=== PATIENT | female | born 1965 | race Caucasian/White ===

== ENCOUNTER 2017-01-15 09:04 | Emergency (ER) | payer MEDICARE, MEDICAID ==
[~2017-01-15 09:04] MED LIST: ACURKIT; ALBU1AER INH; ATRO17AE INH; AZIT250T43 PO; DILT60TA PO; HYDRA50 PO; INSU-118 SQ; NOVOLOGSS SQ; PRED10PA PO; PROT40TA PO; SYMB160A INH; TIOT18I INH
[2017-01-15 09:16] VITALS: BP 181/109; PULSE 135; RESP 24; TEMP 98.3; O2SAT 97
[2017-01-15] MEDS ORDERED: IPRASOL INH (09:24)
[2017-01-15] MEDS ORDERED: ALBUAER3 INH (09:24)
[2017-01-15] MEDS ORDERED: BP MED (09:24)
[2017-01-15] MEDS ORDERED: ADVA250A INH (09:24)
[2017-01-15] MEDS ORDERED: DILTIAZEM HCL 25 MG/5 ML VIAL IV ONE (09:30)
[2017-01-15] MEDS ORDERED: SODIUM CHLORIDE 0.9% FLUSH 5 ML FLUSH IVF PRN (09:30)
[2017-01-15] MEDS ORDERED: DILTIAZEM HCL 90 MG TAB PO ONE (09:30)
[2017-01-15 09:35] VITALS: BP 131/80; PULSE 128; RESP 20; TEMP 98.3; O2SAT 98
[2017-01-15 09:40] LABS: AUTOMATED NEUTROPHIL # 8.5 TH/MM3 (1.8-7.7); BASOPHIL # 0.4 TH/MM3 (0-0.2); BASOPHIL % 3.9 % (0.0-2.0); EOSINOPHIL # 0.1 TH/MM3 (0-0.4); HEMATOCRIT 51.4 % (35.0-46.0); LYMPH % 12.5 % (9.0-44.0); LYMPHOCYTE # 1.4 TH/MM3 (1.0-4.8); MEAN CORPUSCULAR HEMOGLOBIN 28.1 PG (27.0-34.0); MEAN CORPUSCULAR HGB CONC 32.3 % (32.0-36.0); MONO % 4.7 % (0.0-8.0); NEUT % 77.9 % (16.0-70.0); PLATELET COUNT 277 TH/MM3 (150-450); RED CELL DISTRIBUTION WIDTH 13.1 % (11.6-17.2); WHITE BLOOD COUNT 10.9 TH/MM3 (4.0-11.0)
[2017-01-15 09:41] LABS: HEMO FLAGS DIFF FINAL
--- NOTE | 2017-01-15 09:42 | RADHPO ---
EXAM DATE/TIME: 01/15/2017 09:26 [facility] COMPARISON: CHEST SINGLE AP, March 26, 2016, 3:21. INDICATIONS : Severe short of breath. MEDICAL HISTORY : Hypertension. Emphysema. Chronic obstructive pulmonary disease. Renal calculi. Diabetic. SURGICAL HISTORY : Tubal ligation. D&C. ENCOUNTER: Initial ACUITY: 1 day PAIN SCORE: 0/10 LOCATION: chest FINDINGS: A single view of the chest demonstrates the lungs to be symmetrically inflated without evidence of ma ss, infiltrate or effusion. Costicartilage calcifications are present. The cardiomediastinal contours are unremarkable. Osseous structures are intact. The overlying electrocardiogram leads and oxygen t ubing. CONCLUSION: The lungs remain hyperinflated with no evidence of pneumonia or pulmonary edema. Paul Green MD on January 15, 2017 at 9:40 Board Certified Radiologist. This report was verified electronically.
[2017-01-15 09:53] LABS: PROTHROMBIN TIME - PATIENT 10.7 SEC (9.8-11.6)
[2017-01-15 10:08] LABS: CHLORIDE 101 MEQ/L (98-107); POTASSIUM 3.7 MEQ/L (3.5-5.1); SODIUM (NA) 140 MEQ/L (136-145)
[2017-01-15 10:13] LABS: ANION GAP 7 MEQ/L (5-15); BICARBONATE 32.1 MEQ/L (21.0-32.0)
[2017-01-15 10:14] LABS: BLOOD UREA NITROGEN 7 MG/DL (7-18); MAGNESIUM 2.1 MG/DL (1.5-2.5)
[2017-01-15 10:17] LABS: GLOMERULAR FILTRATION RATE 70 ML/MIN (>89)
[2017-01-15 10:22] LABS: CREATINE KINASE 65 U/L (26-192)
[2017-01-15] MEDS ORDERED: SODIUM CHLOR 0.9% 1000 ML INJ 1,000 ML IV ONE (10:30)
[2017-01-15 10:35] VITALS: BP 148/51; PULSE 105; RESP 20; O2SAT 97
[2017-01-15] MEDS ORDERED: PRED20 PO (11:14)
[2017-01-15] MEDS ORDERED: CARD120C4 PO (11:14)
--- NOTE | 2017-01-15 11:15 | PD ---
HPI Chief Complaint: Respiratory Symptoms Time Seen by Provider: 09:20 Travel History International Travel<30 days: No Contact w/Intl Traveler<30days: No Traveled to known affect area: No History of Present Illness HPI 51-year-old female came to the emergency room brought by EMS with history of shortness of breath that started at 5 AM this morning. Patient has severe COPD and requires 2 L of oxygen all the time at home. She continues to be a smoker still. She has had multiple admissions, ICU admissions with intubations in the past. Her last admission with intubation was one year ago. She used to of her nebulizers but when she continued to feel poorly she asked her daughter to call 911. Patient says that she also felt like her heart was racing. No history of chest pain. As per EMS when they arrived they noticed that her oxygen saturation was 96% on room air and heart rate was in 140s. They captured a 12- lead EKG which showed a normal sinus rhythm with tachycardia. Patient received one albuterol on route by EMS along with IV Solu-Medrol. When she arrived her heart rate was in 130s and oxygen saturation was 98% on 2 L of oxygen. Patient seemed anxious. Denied of any chest pain. Patient says she was at her baseline last night before going to bed. No history of recent long distance travel, procedures or surgeries. Patient is supposed to be on Cardizem but has not taken it in past couple months. [facility] Past Medical History Narrative Medical List of her past medical history, social and family history is reviewed from the nursing note as well as with the patient. Anxiety: Yes (LAST ANXIETY ATTACK WAS IN 2000.) Depression: No Cancer: No High Cholesterol: No COPD: Yes Diabetes: No Diminished Hearing: No Endocrine: No Genitourinary: Yes Hypertension: Yes Immune Disorder: No Kidney Stones: Yes (AT AGE 15.) Musculoskeletal: No Neurologic: No Psychiatric: Yes Reproductive: No Respiratory: Yes Immunizations Current: No Influenza Vaccination: No ?: Not Menopausal: Yes : 9 Para: 4 Miscarriage: 5 Dilation and Curettage (D&C): Yes Tubal Ligation: Yes Past Surgical History Gynecologic Surgery: Yes (TUBES TIED.) Other Surgery: Yes (HAND SURGERY ) Social History Alcohol Use: Yes (RARELY) Tobacco Use: Yes (1/2 PPD) Substance Use: No Allergies-Medications (Allergen,Severity, Reaction): Coded Allergies: Valium (Verified Allergy, Severe, HIVES, 01/15/17) *MDRO Multi-Drug Resistant Organism (Verified Adverse Reaction, Unknown, ) MRSA PCR Screen POSITIVE - 03/19/2016 Comments List of her allergies reviewed from the nursing note. Reported Meds & Prescriptions Reported Meds & Active Scripts Active Prednisone 20 Mg Tab 20 Mg PO BID 5 Days Cardizem CD 24 HR (Diltiazem CD 24 HR) 120 Mg Caper 120 Mg PO DAILY Reported [Bp Med] 0 Advair Diskus Inh (Fluticasone-Salmeterol Inh) 250-50 Mcg/Blist Aer 1 Puff INH BID Rinse mouth after use. Duoneb (Ipratropium-Albuterol Neb) 0.5-2.5 Mg/3 Ml Neb 1 Nebule INH Q4HR NEB Proair Hfa 8.5 GM Inh (Albuterol Sulfate) 90 Mcg/Act Aer 2 Puff INH Q4-6H PRN 108 mcg/actuation Narrative Medication List of her home medications reviewed from the nursing note. Review of Systems Except as stated in HPI: all other systems reviewed are Neg Physical Exam Narrative GENERAL: Awake, alert, anxious, moderate distress SKIN: Warm and dry. Eczema HEAD: Atraumatic. Normocephalic. EYES: Pupils equal and round. No scleral icterus. No injection or drainage. ENT: No nasal bleeding or discharge. Mucous membranes pink and moist. NECK: Trachea midline. No JVD. CARDIOVASCULAR: Regular rate and rhythm. Tachycardia. No murmur appreciated. RESPIRATORY: No accessory muscle use. Clear to auscultation. Breath sounds equal bilaterally. GASTROINTESTINAL: Abdomen soft, non-tender, nondistended. Hepatic and splenic margins not palpable. MUSCULOSKELETAL: No obvious deformities. No clubbing. No cyanosis. No edema. NEUROLOGICAL: Awake and alert. No obvious cranial nerve deficits. Motor grossly within normal limits. Normal speech. PSYCHIATRIC: Appropriate mood and affect; insight and judgment normal. Data Data Last Documented VS Vital Signs Date Time Temp Pulse Resp B/P Pulse Ox O2 Delivery O2 Flow Rate FiO2 01/15/17 11:45 105 20 125/79 95 Nasal Cannula 2 01/15/17 09:35 98.3 Orders Complete Blood Count With Diff (01/15/17 09:20) Basic Metabolic Panel (Bmp) (2/17/17 09:20) B-Type Natriuretic Peptide (01/15/17 09:20) Prothrombin Time / Inr (Pt) (01/15/17 09:20) Magnesium (Mg) (01/15/17 09:20) Ckmb (Isoenzyme) Profile (01/15/17 09:20) Troponin I (01/15/17 09:20) Iv Access Insert/Monitor (01/15/17 09:20) Electrocardiogram (01/15/17:20) Ecg Monitoring (01/15/17 09:20) Oximetry (01/15/17 09:20) Oxygen Administration (01/15/17 09:20) Chest, Single Ap (01/15/17 09:20) Sodium Chloride 0.9% Flush (Ns Flush) (01/15/17 09:30) Diltiazem Inj (Cardizem Inj) (01/15/17 09:30) Diltiazem (Cardizem) (01/15/17 09:30) Sodium Chlor 0.9% 1000 Ml Inj (Ns 1000 M (01/15/17 10:30) Labs Laboratory Tests Test 01/15/17 09:30 White Blood Count 10.9 TH/MM3 Red Blood Count 5.90 MIL/MM3 Hemoglobin 16.6 GM/DL Hematocrit 51.4 % Mean Corpuscular Volume 87.0 FL Mean Corpuscular Hemoglobin 28.1 PG Mean Corpuscular Hemoglobin 32.3 % Concent Red Cell Distribution Width 13.1 % Platelet Count 277 TH/MM3 Mean Platelet Volume 9.5 FL Neutrophils (%) (Auto) 77.9 % Lymphocytes (%) (Auto) 12.5 % Monocytes (%) (Auto) 4.7 % Eosinophils (%) (Auto) 1.0 % Basophils (%) (Auto) 3.9 % Neutrophils # (Auto) 8.5 TH/MM3 Lymphocytes # (Auto) 1.4 TH/MM3 Monocytes # (Auto) 0.5 TH/MM3 Eosinophils # (Auto) 0.1 TH/MM3 Basophils # (Auto) 0.4 TH/MM3 CBC Comment DIFF FINAL Differential Comment Prothrombin Time 10.7 SEC Prothromb Time International 1.0 RATIO Ratio Sodium Level 140 MEQ/L Potassium Level 3.7 MEQ/L Chloride Level 101 MEQ/L Carbon Dioxide Level 32.1 MEQ/L Anion Gap 7 MEQ/L Blood Urea Nitrogen 7 MG/DL Creatinine 0.86 MG/DL Estimat Glomerular Filtration 70 ML/MIN Rate Random Glucose 153 MG/DL Calcium Level 9.3 MG/DL Magnesium Level 2.1 MG/DL Total Creatine Kinase 65 U/L Troponin I LESS THAN 0.02 NG/ML B-Type Natriuretic Peptide 6 PG/ML MDM Medical Decision Making Medical Screen Exam Complete: Yes Emergency Medical Condition: Yes Medical Record Reviewed: Yes Interpretation(s) Twelve-lead EKG was reviewed by me. Normal sinus rhythm, normal axis, tachycardia, nonspecific ST-T wave changes. Heart rate of 136 bpm. Differential Diagnosis COPD exacerbation, atrial flutter, pneumonia, CHF Narrative Course 11:09 AM patient continued to remain from oxygen saturation standpoint. I decided to give her 20 milligrams of IV Cardizem given her heart rate and blood pressure. This was followed by by mouth Cardizem 90 mg. Currently her heart rate is in the 100s and blood pressure is 125 systolic. Patient says she feels much better. Blood test and chest x-ray are back and were essentially within acceptable limits. I had a talk for 10 minutes with the patient regarding the importance of compliance with medications, smoking cessation and follow up with her primary care. Patient says that currently she is under a lot of stress and lives with her sister and everybody in that household smokes. This leads her up to smoking as well. She will try quitting when she moves out of that house and has a place of her own. She understands the damage smoking does to her lungs. I will discharge this patient home on Cardizem prescription as well as a five-day course of steroid. She needs to follow up with her primary care after that. Patient was also given 1 L of IV fluid bolus prior to the discharge. Critical Care Narrative Aggregate critical care time was 45 minutes. Time to perform other separately billable procedures was not included in the critical care time. My time did not include minutes spent treating any other patients simultaneously or on activities that did not directly contribute to the patient's treatment. The services I provided to this patient were to treat and/or prevent clinically significant deterioration that could result in: Respiratory distress, tachycardia management I provided critical care services requiring my management, as noted below: Chart data review, documentation time, medication orders and management, vital sign assessments/reviewing monitor data, ordering and reviewing lab tests, ordering and interpreting/reviewing x-rays and diagnostic studies, care of the patient and discussion of the patient with the admitting physicians. Procedures EKG Prior to Arrival: Yes Diagnosis Primary Impression: Respiratory distress Additional Impressions: Tachycardia, paroxysmal Acute exacerbation of chronic obstructive pulmonary disease (COPD) Needs smoking cessation education Dehydration Referrals: Primary Care Physician 3 days Additional Instructions: Please return to the ER if the condition worsens or any other new concerns. Please fill the prescription that's been given to you and take it as directed. To continue taking Cardizem and get it refilled from your primary care. You need to quit smoking in order to have a control one year COPD. Use her inhaler/ nebulizer every 6 hours still symptoms subside. Med/Other Pt SpecificInfo: Prescription(s) given Scripts Prednisone 20 Mg Tab20 Mg PO BID 5 Days Ref 0 Prov:Katia Marinelli MD 01/15/17 Diltiazem CD 24 HR (Cardizem CD 24 HR)120 Mg [id number] Mg PO DAILY #30 CAP Ref 0 Prov:Katia Marinelli MD 01/15/17 Disposition: 01 DISCHARGE HOME Condition: Stable Katia Marinelli MD Jan 15, 2017 11:15
[2017-01-15 11:45] VITALS: BP 125/79; PULSE 105; RESP 20; O2SAT 95
--- NOTE | 2017-01-16 17:10 | EKG ---
Date Performed: 01/15/2017 Time Performed: 09:16:20 PTAGE: 51 years EKG: Sinus tachycardia. Septal T wave changes are nonspecific Compared to prior tracing no signi ficant change Borderline ECG PREVIOUS TRACING : 03/19/2016 10.17 DOCTOR: Pj Swanson Interpretating Date/Time 01/16/2017 17:09:04
[2017-04-29] MEDS ORDERED: PRED20 PO (12:58)
[2017-04-29] MEDS ORDERED: CLON.5 PO (12:58)
[2017-04-29] MEDS ORDERED: SYMB160A INH (12:58)
[2017-04-29] MEDS ORDERED: PANT40TA3 PO (12:58)
[2017-04-29] MEDS ORDERED: METO25TA3 PO (12:58)
[2017-04-29] MEDS ORDERED: LIPI20TA PO (12:58)
[2017-04-29] MEDS ORDERED: DOCU1CAP39 PO (12:58)
[2017-04-29] MEDS ORDERED: CARD180C5 PO (12:58)
[2017-04-29] MEDS ORDERED: GNP5TAB6 PO (12:58)
[2017-04-29] MEDS ORDERED: SPIRCAP INH (12:58)
[2017-04-29] MEDS ORDERED: IPRA17I INH (12:58)
[2017-04-29] MEDS ORDERED: MIRTA15 PO (12:58)
== END 2017-01-15 12:05 | disposition home or self-care (01) ==
LOC: PHED 09:04
DX: J44.1 Chronic obstructive pulmonary disease with (acute) exacerbation (principal); R00.0 Tachycardia, unspecified; E86.0 Dehydration; I10 Essential (primary) hypertension; F17.210 Nicotine dependence, cigarettes, uncomplicated
CPT/HCPCS: 71010; 80048; 82550; 83735; 83880; 84484; 85025; 85610; 93005; 96361; 96374; 99291; J7030

== ENCOUNTER 2017-01-15 12:33 | Emergency (ER) | payer MEDICARE, MEDICAID ==
[~2017-01-15] VITALS: Ht 170.2 cm; Wt 78.0 kg
[~2017-01-15 12:33] MED LIST changes: +ADVA250A INH; +ALBUAER3 INH; +BP MED; +CARD120C4 PO; +IPRASOL INH; +PRED20 PO
[2017-01-15 12:44] VITALS: BP 156/88; PULSE 128; RESP 20; TEMP 98.1; O2SAT 96
[2017-01-15] MEDS ORDERED: RESP: ALBUTEROL 2.5 MG/IPRATROPIUM 0.5 MG NEB (SCH) NEB ONE (13:15)
--- NOTE | 2017-01-15 13:57 | PD ---
HPI Chief Complaint: Respiratory Symptoms Time Seen by Provider: 13:04 Travel History International Travel<30 days: No Contact w/Intl Traveler<30days: No Traveled to known affect area: No History of Present Illness HPI 51-year-old female was seen by me for shortness of breath earlier this morning. She was evaluated and treated by me. She felt better and was discharged. Patient was in the waiting room waiting for her daughter to come and pick her up. She came without her oxygen tank and by the time patient walked to the car she was out of breath again. This is a patient who has severe COPD, chronic smoker and requiring 2 L of oxygen 21/06. Patient wanted to be check back again to get breathing treatment. They brought her from the triage. She does not seem to look any different than when I had decided to discharge her. PFSH Past Medical History Narrative Medical List of her past medical, social and family history was reviewed from the nursing note. Anxiety: Yes (LAST ANXIETY ATTACK WAS IN 2000.) Depression: No Cancer: No High Cholesterol: No COPD: Yes Diabetes: No Diminished Hearing: No Endocrine: No Genitourinary: Yes Hypertension: Yes Immune Disorder: No Kidney Stones: Yes (AT AGE 15.) Musculoskeletal: No Neurologic: No Psychiatric: Yes Reproductive: No Respiratory: Yes Immunizations Current: No ?: Not Menopausal: Yes : 9 Para: 4 Miscarriage: 5 Dilation and Curettage (D&C): Yes Tubal Ligation: Yes Past Surgical History Gynecologic Surgery: Yes (TUBES TIED.) Other Surgery: Yes (HAND SURGERY ) Social History Alcohol Use: Yes (RARELY) Tobacco Use: Yes (1/2 PPD) Substance Use: No Allergies-Medications (Allergen,Severity, Reaction): Coded Allergies: Valium (Verified Allergy, Severe, HIVES, 01/15/17) *MDRO Multi-Drug Resistant Organism (Verified Adverse Reaction, Unknown, ) MRSA PCR Screen POSITIVE - 03/19/2016 Comments List of her allergies reviewed from the nursing note. Reported Meds & Prescriptions Reported Meds & Active Scripts Active Prednisone 20 Mg Tab 20 Mg PO BID 5 Days Cardizem CD 24 HR (Diltiazem CD 24 HR) 120 Mg Caper 120 Mg PO DAILY Reported [Bp Med] 0 Advair Diskus Inh (Fluticasone-Salmeterol Inh) 250-50 Mcg/Blist Aer 1 Puff INH BID Rinse mouth after use. Duoneb (Ipratropium-Albuterol Neb) 0.5-2.5 Mg/3 Ml Neb 1 Nebule INH Q4HR NEB Proair Hfa 8.5 GM Inh (Albuterol Sulfate) 90 Mcg/Act Aer 2 Puff INH Q4-6H PRN 108 mcg/actuation Narrative Medication List of her home medications reviewed from the nursing note. Review of Systems Except as stated in HPI: all other systems reviewed are Neg Physical Exam Narrative GENERAL: Awake, alert, anxious, mild distress SKIN: Warm and dry. HEAD: Atraumatic. Normocephalic. EYES: Pupils equal and round. No scleral icterus. No injection or drainage. ENT: No nasal bleeding or discharge. Mucous membranes pink and moist. NECK: Trachea midline. No JVD. CARDIOVASCULAR: Regular rate and rhythm. Tachycardia. No murmur appreciated. RESPIRATORY: No accessory muscle use. Clear to auscultation. Breath sounds equal bilaterally. GASTROINTESTINAL: Abdomen soft, non-tender, nondistended. Hepatic and splenic margins not palpable. MUSCULOSKELETAL: No obvious deformities. No clubbing. No cyanosis. No edema. NEUROLOGICAL: Awake and alert. No obvious cranial nerve deficits. Motor grossly within normal limits. Normal speech. PSYCHIATRIC: Appropriate mood and affect; insight and judgment normal. Data Data Last Documented VS Vital Signs Date Time Temp Pulse Resp B/P Pulse Ox O2 Delivery O2 Flow Rate FiO2 01/15/17 13:03 98 Nasal Cannula 2 01/15/17 12:44 98.1 128 20 156/88 Orders Albuterol-Ipratropium Neb (Duoneb Neb) (01/15/17 13:15) [facility] Medical Decision Making Medical Screen Exam Complete: Yes Emergency Medical Condition: Yes Medical Record Reviewed: Yes Differential Diagnosis COPD exacerbation Narrative Course 2 PM patient was given 1 DuoNeb treatment and was discharged home. She is comfortable going home. Procedures EKG Prior to Arrival: No Diagnosis Primary Impression: Acute exacerbation of COPD with asthma Referrals: Primary Care Physician 3 days Additional Instructions: Please follow-up with your primary care and attention to the previous discharge instruction that was given to today. Med/Other Pt SpecificInfo: No Change to Meds Disposition: 01 DISCHARGE HOME Condition: Stable Katia Marinelli MD Jan 15, 2017 13:57
[2017-04-29] MEDS ORDERED: SPIRCAP INH (12:58)
[2017-04-29] MEDS ORDERED: CARD180C5 PO (12:58)
[2017-04-29] MEDS ORDERED: GNP5TAB6 PO (12:58)
[2017-04-29] MEDS ORDERED: PRED20 PO (12:58)
[2017-04-29] MEDS ORDERED: LIPI20TA PO (12:58)
[2017-04-29] MEDS ORDERED: PANT40TA3 PO (12:58)
[2017-04-29] MEDS ORDERED: MIRTA15 PO (12:58)
[2017-04-29] MEDS ORDERED: CLON.5 PO (12:58)
[2017-04-29] MEDS ORDERED: IPRA17I INH (12:58)
[2017-04-29] MEDS ORDERED: METO25TA3 PO (12:58)
[2017-04-29] MEDS ORDERED: DOCU1CAP39 PO (12:58)
[2017-04-29] MEDS ORDERED: SYMB160A INH (12:58)
== END 2017-01-15 14:35 | disposition home or self-care (01) ==
LOC: PHEFT 12:33
DX: J44.1 Chronic obstructive pulmonary disease with (acute) exacerbation (principal); J45.901 Unspecified asthma with (acute) exacerbation; I10 Essential (primary) hypertension; F17.210 Nicotine dependence, cigarettes, uncomplicated
CPT/HCPCS: 94664

== ENCOUNTER 2017-01-31 05:34 | Inpatient (IN) | payer MEDICARE, MEDICAID ==
[~2017-01-31] VITALS: Ht 162.6 cm; Wt 79.1 kg
[2017-01-31] VITALS (11 sets, daily range): BP systolic 125–167; BP diastolic 73–101; PULSE 124–138; RESP 15–32; TEMP 96.3–98.4; O2SAT 94–100
[~2017-01-31 05:34] MED LIST changes: -ACURKIT; -ALBU1AER INH; -ATRO17AE INH; -AZIT250T43 PO; -DILT60TA PO; -HYDRA50 PO; -INSU-118 SQ; -NOVOLOGSS SQ; -PRED10PA PO; -PROT40TA PO; -SYMB160A INH; -TIOT18I INH
[2017-01-31] MEDS ORDERED: SODIUM CHLORIDE 0.9% FLUSH 5 ML FLUSH IVF PRN ×3 (05:45→09:00)
[2017-01-31] MEDS: RESP: ALBUTEROL 2.5 MG/IPRATROPIUM 0.5 MG NEB (SCH) INH ×4 (05:47→19:31)
[2017-01-31 05:52] LABS: AUTOMATED NEUTROPHIL # 4.3 TH/MM3 (1.8-7.7); BASOPHIL # 0.1 TH/MM3 (0-0.2); BASOPHIL % 0.8 % (0.0-2.0); EOSINOPHIL # 0.3 TH/MM3 (0-0.4); EOSINOPHIL % 3.4 % (0.0-4.0); HEMATOCRIT 49.8 % (35.0-46.0); HEMO FLAGS DIFF FINAL; LYMPHOCYTE # 2.4 TH/MM3 (1.0-4.8); MEAN CELL VOLUME 86.4 FL (80.0-100.0); MEAN CORPUSCULAR HEMOGLOBIN 28.2 PG (27.0-34.0); MEAN CORPUSCULAR HGB CONC 32.7 % (32.0-36.0); MONO % 7.7 % (0.0-8.0); NEUT % 57.1 % (16.0-70.0); PLATELET COUNT 282 TH/MM3 (150-450); RED BLOOD COUNT 5.76 MIL/MM3 (4.00-5.30); RED CELL DISTRIBUTION WIDTH 12.9 % (11.6-17.2); WHITE BLOOD COUNT 7.7 TH/MM3 (4.0-11.0)
--- NOTE | 2017-01-31 06:01 | PD ---
HPI Chief Complaint: Respiratory Symptoms Time Seen by Provider: 05:40 Travel History International Travel<30 days: No Contact w/Intl Traveler<30days: No Traveled to known affect area: No History of Present Illness HPI The patient is a 51-year-old female with a history of COPD who complains of shortness of breath beginning at 4:30 this morning. She called an ambulance. The patient is on 2 L nasal cannula at all times at home. She denies any fever , chest pain, vomiting or diarrhea. She has had some nausea for the last 2 days but is not nauseated now. She has not smoked in over 2 months but she is around secondhand smoke. Dr. Dumont is her safety person. She called the ambulance and was given 2 albuterol treatments in route as well as 125 of Solu- Medrol IV. PFSH Past Medical History Anxiety: Yes (LAST ANXIETY ATTACK WAS IN 2000.) Depression: No Cancer: No High Cholesterol: No COPD: Yes Diabetes: No Diminished Hearing: No Endocrine: No Genitourinary: Yes Hypertension: Yes Immune Disorder: No Kidney Stones: Yes (AT AGE 15.) Musculoskeletal: No Neurologic: No Psychiatric: Yes Reproductive: No Respiratory: Yes Immunizations Current: No ?: Not Menopausal: Yes : 9 Para: 4 Miscarriage: 5 Dilation and Curettage (D&C): Yes Tubal Ligation: Yes Past Surgical History Gynecologic Surgery: Yes (TUBES TIED.) Other Surgery: Yes (HAND SURGERY ) Social History Alcohol Use: Yes (RARELY) Tobacco Use: Yes (1/2 PPD) Substance Use: No Allergies-Medications (Allergen,Severity, Reaction): Coded Allergies: Valium (Verified Allergy, Severe, HIVES, 01/31/17) *MDRO Multi-Drug Resistant Organism (Verified Adverse Reaction, Unknown, ) MRSA PCR Screen POSITIVE - 03/19/2016 Reported Meds & Prescriptions Reported Meds & Active Scripts Active Cardizem CD 24 HR (Diltiazem CD 24 HR) 120 Mg Caper 120 Mg PO DAILY Reported [Bp Med] 0 Advair Diskus Inh (Fluticasone-Salmeterol Inh) 250-50 Mcg/Blist Aer 1 Puff INH BID Rinse mouth after use. Duoneb (Ipratropium-Albuterol Neb) 0.5-2.5 Mg/3 Ml Neb 1 Nebule INH Q4HR NEB Proair Hfa 8.5 GM Inh (Albuterol Sulfate) 90 Mcg/Act Aer 2 Puff INH Q4-6H PRN 108 mcg/actuation Review of Systems Except as stated in HPI: all other systems reviewed are Neg Physical Exam Narrative GENERAL: The patient is alert, oriented 3 in moderate respiratory distress. Her vital signs show blood pressure 166/73 with a heart rate of 138 and respirations 32 and oximetry is 94% on 2 L nasal cannula. SKIN: Warm and dry. No skin rashes seen. HEAD: Atraumatic. Normocephalic. EYES: Pupils equal and round. No scleral icterus. No injection or drainage. ENT: No nasal bleeding or discharge. Mucous membranes pink and moist. NECK: Trachea midline. No JVD. There is no meningismus present. CARDIOVASCULAR: Regular rate and rhythm. No murmur appreciated. RESPIRATORY: No accessory muscle use. Scattered wheezes are heard in all lung mathis.. Breath sounds equal bilaterally. GASTROINTESTINAL: Abdomen soft, non-tender, nondistended. Hepatic and splenic margins not palpable. MUSCULOSKELETAL: No obvious deformities. No clubbing. No cyanosis. No edema. NEUROLOGICAL: Awake and alert. No obvious cranial nerve deficits. Motor grossly within normal limits. Normal speech. PSYCHIATRIC: Appropriate mood and affect; insight and judgment normal. Data Data Last Documented VS Vital Signs Date Time Temp Pulse Resp B/P Pulse Ox O2 Delivery O2 Flow Rate FiO2 01/31/17 06:48 97 Nasal Cannula 2 01/31/17 06:48 128 24 135/77 01/31/17 05:35 98.4 Orders Complete Blood Count With Diff (01/31/17 05:40) Basic Metabolic Panel (Bmp) (01/31/17 05:40) Magnesium (Mg) (01/31/17 05:40) Urinalysis - C+S If Indicated (01/31/17 05:40) Iv Access Insert/Monitor (01/31/17 05:40) Ecg Monitoring (01/31/17 05:40) Oximetry (01/31/17 05:40) Oxygen Administration (01/31/17 05:40) Chest, Pa & Lat (01/31/17 05:40) Sodium Chloride 0.9% Flush (Ns Flush) (01/31/17 05:45) Albuterol-Ipratropium Neb (Duoneb Neb) (01/31/17 05:45) Lactic Acid Sepsis Protocol (01/31/17 07:00) Influenzae A/B Antigen (01/31/17 07:00) Blood Culture (01/31/17 07:00) Sodium Chloride 0.9% Flush (Ns Flush) (01/31/17 07:00) Levofloxacin 750 Mg Premix Inj (Levaquin (01/31/17 07:00) Arterial Blood Gas (Abg) (01/31/17 ) Admit Order (Ed Use Only) (01/31/17 07:07) Labs Laboratory Tests Test 01/31/17 01/31/17 05:40 06:20 White Blood Count 7.7 TH/MM3 Red Blood Count 5.76 MIL/MM3 Hemoglobin 16.3 GM/DL Hematocrit 49.8 % Mean Corpuscular Volume 86.4 FL Mean Corpuscular Hemoglobin 28.2 PG Mean Corpuscular Hemoglobin 32.7 % Concent Red Cell Distribution Width 12.9 % Platelet Count 282 TH/MM3 Mean Platelet Volume 8.6 FL Neutrophils (%) (Auto) 57.1 % Lymphocytes (%) (Auto) 31.0 % Monocytes (%) (Auto) 7.7 % Eosinophils (%) (Auto) 3.4 % Basophils (%) (Auto) 0.8 % Neutrophils # (Auto) 4.3 TH/MM3 Lymphocytes # (Auto) 2.4 TH/MM3 Monocytes # (Auto) 0.6 TH/MM3 Eosinophils # (Auto) 0.3 TH/MM3 Basophils # (Auto) 0.1 TH/MM3 CBC Comment DIFF FINAL Differential Comment Sodium Level 140 MEQ/L Potassium Level 3.5 MEQ/L Chloride Level 98 MEQ/L Carbon Dioxide Level 35.2 MEQ/L Anion Gap 7 MEQ/L Blood Urea Nitrogen 3 MG/DL Creatinine 0.85 MG/DL Estimat Glomerular Filtration 71 ML/MIN Rate Random Glucose 130 MG/DL Calcium Level 9.1 MG/DL Magnesium Level 2.2 MG/DL Urine Collection Type VOIDED Urine Color STRAW Urine Turbidity CLEAR Urine pH 5.5 Urine Specific [place] 1.006 Urine Protein NEG mg/dL Urine Glucose (UA) NEG mg/dL Urine Ketones NEG mg/dL Urine Occult Blood NEG Urine Nitrite NEG Urine Bilirubin NEG Urine Leukocyte Esterase NEG Urine WBC 0-2 /hpf Urine Squamous Epithelial 0-2 /hpf Cells Microscopic Urinalysis Comment CULT NOT INDICATED MDM Medical Decision Making Medical Screen Exam Complete: Yes Emergency Medical Condition: Yes Medical Record Reviewed: Yes Interpretation(s) The chest x-ray shows coarse basilar interstitial infiltrates. The basic metabolic profile shows a GFR of 71, glucose 1:30 and bicarbonate of 35.2 but is otherwise unremarkable. Differential Diagnosis COPD with acute exacerbation, acute asthma, bronchitis, pneumonia, hypoxemia Narrative Course The patient is still sitting and a tripod position, short of breath. She cannot go home at this time. She has an interstitial infiltrate and will need antibiotics. The patient is given Levaquin. Physician Communication Physician Communication I discussed the patient with Dr. Rodriguez, the patient will be admitted to her here at [facility]. Diagnosis Primary Impression: COPD with acute exacerbation Additional Impression: Pneumonia Admitting Information Admitting Physician Requests: Admit Armando Singh MD Jan 31, 2017 06:01
[2017-01-31 06:02] LABS: POTASSIUM 3.5 MEQ/L (3.5-5.1)
[2017-01-31 06:05] LABS: BICARBONATE 35.2 MEQ/L (21.0-32.0); MAGNESIUM 2.2 MG/DL (1.5-2.5)
[2017-01-31 06:35] LABS: BLOOD, URINE NEG (NEG); GLUCOSE,URINE NEG (NEG); KETONE, URINE NEG (NEG); NITRITE,URINE NEG (NEG); PH, URINE 5.5 (5.0-8.5)
[2017-01-31 06:41] LABS: METHOD OF COLLECTION VOIDED; URINE COLOR STRAW (YELLW/STRAW); WBC, URINE 0-2 /hpf (0-5)
[2017-01-31 06:42] LABS: COMMENT (UR) CULT NOT INDICATED; CULTURE IF INDICATED CULT NOT INDICATED; SQUAMOUS EPITHELIAL CELL URINE 0-2 /hpf (0-5)
--- NOTE | 2017-01-31 06:50 | RADHPO ---
EXAM DATE/TIME: 01/31/2017 06:15 [facility] COMPARISON: CHEST SINGLE AP, January 15, 2017, 9:26. INDICATIONS : Shortness of breath. MEDICAL HISTORY : Hypertension. Emphysema. Chronic obstructive pulmonary disease. Renal calculi. Diabetic SURGICAL HISTORY : Tubal ligation. ENCOUNTER: Initial ACUITY: 1 day PAIN SCORE: 3/10 LOCATION: Bilateral chest FINDINGS: The lungs are hyperinflated. Coarse interstitial infiltrates are present over the lower lung zones bi laterally. Heart size and mediastinal contours are grossly stable. Thoracic skeleton is unchanged. CONCLUSION: Coarse basilar interstitial infiltrates Abhinav Jackson MD on January 31, 2017 at 6:48 Board Certified Radiologist. This report was verified electronically.
[2017-01-31] MEDS ORDERED: LEVOFLOXACIN 750 MG PREMIX INJ 150 ML IV ONE (07:00)
[2017-01-31 07:25] LABS: BLOOD GAS CARBOXYHEMOGLOBIN 5.1 % (0-4); BLOOD GAS HCO3 31 mmol/L (22-26); BLOOD GAS O2 HGB SATURATION 91 % (90-100); BLOOD GAS OXYGEN CONTENT 20.2 Vol % (12.0-20.0); BLOOD GAS PCO2 52 mmHG (38-42); BLOOD GAS PO2 88 mmHG (61-120); BLOOD GAS TOTAL HGB 15.7 G/DL (12.0-16.0); CRITICAL VALUE YES; LITER FLOW 3 L/M; OXYGEN DEVICE NASAL CANNULA; TEMP CORR TO 98.6
[2017-01-31 07:26] LABS: DRAW SITE LT RADIAL; NUMBER OF ARTERIAL PUNCTURES 1; STAT YES; ULNAR PULSE PRESENT
[2017-01-31] MEDS: ENOXAPARIN SODIUM 40 MG/0.4 ML SYRINGE SQ SCH (09:19)
[2017-01-31] MEDS: methylPREDNISolone SOD SUCC 125 MG/2 ML VIAL IVP SCH ×3 (09:19→22:19)
[2017-01-31] MEDS: SODIUM CHLORIDE 0.9% FLUSH 5 ML FLUSH IVF SCH ×2 (09:19→22:32)
--- NOTE | 2017-01-31 10:59 | RADHPO ---
EXAM DATE/TIME: 01/31/2017 10:07 [place] COMPARISON: CHEST PA & LAT, January 31, 2017, 6:15. CT PULMONARY ANGIOGRAM, January 16, 2016, 12:52. INDICATIONS : Short of breath. IV CONTRAST: 74 cc Omnipaque 350 (iohexol) IV RADIATION DOSE: 11.52 CTDIvol (mGy) MEDICAL HISTORY : Hypertension. Chronic obstructive pulmonary disease. SURGICAL HISTORY : Tubal ligation. ENCOUNTER: Initial ACUITY: 1 day PAIN SCALE: 5/10 LOCATION: chest TECHNIQUE: Volumetric scanning of the chest was performed using a pulmonary embolism protocol MIP images were re constructed. Using automated exposure control and adjustment of the mA and/or kV according to patien t size, radiation dose was kept as low as reasonably achievable to obtain optimal diagnostic quality images. FINDINGS: PULMONARY ARTERIES: No filling defects are seen in the pulmonary arteries through the segmental level. LUNGS: There is severe centrilobular emphysema. In the right middle lobe there is a subpleural consolidative nodule measuring approximately 10 mm. In the inferior aspect left upper lobe there is airspace conso lidation. A stable 4 mm noncalcified nodule is present in the left lower lobe. No pneumothorax is pre sent. There is stable biapical scar, right greater than left. PLEURAE: There is no pleural thickening or pleural effusion. MEDIASTINUM: Heart and great vessels demonstrate no acute finding. There are multiple enlarged lymph nodes in the superior mediastinum, middle mediastinum, subcarinal location, and bilateral emily. There is enlarged AP window lymph node measuring 18 mm in short axis diameter. There is a 5 mm nodule along the right l ateral tracheal wall at the level of the lia. MUSCULOSKELETAL: No acute osseous abnormality is visualized. MISCELLANEOUS: The visualized upper abdominal organs demonstrate no acute abnormality. There is a stone within the g allbladder. CONCLUSION: 1. Airspace consolidation within the inferior aspect of the left upper lobe and 10 mm consolidative n odule in the right middle lobe. Differential diagnosis includes infection versus malignancy. There ar e also very enlarged mediastinal and bilateral hilar lymph nodes present. It is atypical to get lymph nodes this large secondary to most infectious processes so malignancy should also be entertained. Ho wever consider correlating with the clinical history and consider followup chest CT in a few weeks to assess for change. 2. No PE is identified. 3. There is a 5 mm nodule along the right lateral tracheal wall to level the lia. This was not vis ualized previously. Suggest attention to this followup imaging. This could represent a soft tissue no dule or secretions. Abhinav Kraft MD on January 31, 2017 at 10:50 Board Certified Radiologist. This report was verified electronically.
[2017-01-31] MEDS ORDERED: IOHEXOL 350 MG/ML 10 ML VIAL (for RAD DIAG) IV ONE (11:05)
[2017-01-31] MEDS: RESP: ALBUTEROL 2.5 MG/IPRATROPIUM 0.5 MG NEB (PRN) NEB ×2 (11:26→23:09)
--- NOTE | 2017-01-31 15:09 | HHI.HP ---
[facility] No Primary Care Physician Admission Diagnosis COPD with acute exacerbation Diagnoses: Travel History International Travel<30 Days: No Contact w/Intl Traveler <30 Da: No Traveled to Known Affected Are: No History of Present Illness This is a pleasant 51-year-old female with history of severe end- stage COPD on home oxygen continuously, with history of intubations in the past for COPD exacerbations who presents to the ER today complaining of shortness of breath beginning at 4 AM this morning. The patient states that she has been living with her sister who smokes. She also states that she the patient continues to smoke a little bit here and there. She complains of cough nonproductive of sputum and states that this is chronic. She does complain of some mild wheezing. Mainly she feels that she can't catch her breath. She was treated with multiple breathing treatments as well as Solu-Medrol the ER with marginal improvement. ABG did show compensated elevated CO2. 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 Review of Systems Except as stated in HPI: all other systems reviewed are Neg Past Family Social History Past Medical History COPD Hypertension Anxiety Past Surgical History Allergies Coded Allergies Type Severity Reaction Last Updated Verified Valium Allergy Severe HIVES 01/31/17 Yes *MDRO Multi-Drug Resistant Organism Adverse Reaction Unknown 01/31/17 Yes Active Scripts Medications Dose Route/Sig Days Date Category Dose Instructions Cardizem CD 24 HR (Diltiazem CD 24 HR) 120 Mg Caper 120 Mg PO DAILY 01/15/17 Rx [Bp Med] 0 01/15/17 Reported Advair Diskus Inh (Fluticasone-Salmeterol Inh) 250-50 Mcg/Blist Aer 1 Puff INH BID 01/15/17 Reported Rinse mouth after use. Duoneb (Ipratropium-Albuterol Neb) 0.5-2.5 Mg/3 Ml Neb 1 Nebule INH Q4HR NEB 01/15/17 Reported Proair Hfa 8.5 GM Inh (Albuterol Sulfate) 90 Mcg/Act Aer 2 Puff INH Q4-6H PRN 01/15/17 Reported 108 mcg/actuation Reported Medications Last Impressions Chest X-Ray 01/31/17 0540 Signed Impressions: Service Date/Time: Tuesday, January 31, 2017 06:15 - CONCLUSION: Coarse basilar interstitial infiltrates Abhinav Jackson MD CT Angiography 01/31/17 0000 Signed Impressions: Service Date/Time: Tuesday, January 31, 2017 10:07 - CONCLUSION: 1. Airspace consolidation within the inferior aspect of the left upper lobe and 10 mm consolidative nodule in the right middle lobe. Differential diagnosis includes infection versus malignancy. There are also very enlarged mediastinal and bilateral hilar lymph nodes present. It is atypical to get lymph nodes this large secondary to most infectious processes so malignancy should also be entertained. However consider correlating with the clinical history and consider followup chest CT in a few weeks to assess for change. 2. No PE is identified. 3. There is a 5 mm nodule along the right lateral tracheal wall to level the lia. This was not visualized previously. Suggest attention to this followup imaging. This could represent a soft tissue nodule or secretions. Abhinav Kraft MD Allergies: Coded Allergies: Valium (Verified Allergy, Severe, HIVES, 01/31/17) *MDRO Multi-Drug Resistant Organism (Verified Adverse Reaction, Unknown, ) MRSA PCR Screen POSITIVE - 03/19/2016 Family History Reviewed and noncontributory Social History As per history of present illness Physical Exam Vital Signs Vital Signs Date Time Temp Pulse Resp B/P Pulse Ox O2 Delivery O2 Flow Rate FiO2 01/31/17 13:24 96.3 126 25 125/79 97 01/31/17 10:00 97 Nasal Cannula 2.00 01/31/17 09:15 96.6 127 15 151/83 97 01/31/17 07:39 130 24 151/101 100 Nasal Cannula 3 01/31/17 06:48 97 Nasal Cannula 2 01/31/17 06:48 128 24 135/77 97 Nasal Cannula 2 01/31/17 06:33 128 26 167/80 94 Nasal Cannula 2 01/31/17 05:50 32 94 Room Air 01/31/17 05:50 126 28 165/90 98 Nasal Cannula 2 01/31/17 05:50 96 Nasal Cannula 2 01/31/17 05:35 98.4 138 32 166/73 94 Physical Exam GENERAL: Well-nourished, well-developed middle-aged female sitting in tripod position. SKIN: Warm and dry. HEAD: Normocephalic. EYES: No scleral icterus. No injection or drainage. NECK: Supple, trachea midline. No JVD or lymphadenopathy. CARDIOVASCULAR: Regular rate and rhythm without murmurs, gallops, or rubs. RESPIRATORY: Poor air exchange however no audible wheezing. Breath sounds equal bilaterally. No accessory muscle use. GASTROINTESTINAL: Abdomen soft, non-tender, nondistended. EXTREMITIES: No cyanosis, or edema. NEUROLOGICAL: Awake, alert, and oriented x 3. Non-focal. Laboratory Laboratory Tests Test 01/31/17 01/31/17 01/31/17 01/31/17 05:40 06:20 07:10 07:12 White Blood Count 7.7 Red Blood Count 5.76 Hemoglobin 16.3 Hematocrit 49.8 Mean Corpuscular Volume 86.4 Mean Corpuscular Hemoglobin 28.2 Mean Corpuscular Hemoglobin 32.7 Concent Red Cell Distribution Width 12.9 Platelet Count 282 Mean Platelet Volume 8.6 Neutrophils (%) (Auto) 57.1 Lymphocytes (%) (Auto) 31.0 Monocytes (%) (Auto) 7.7 Eosinophils (%) (Auto) 3.4 Basophils (%) (Auto) 0.8 Neutrophils # (Auto) 4.3 Lymphocytes # (Auto) 2.4 Monocytes # (Auto) 0.6 Eosinophils # (Auto) 0.3 Basophils # (Auto) 0.1 CBC Comment DIFF FINAL Differential Comment Sodium Level 140 Potassium Level 3.5 Chloride Level 98 Carbon Dioxide Level 35.2 Anion Gap 7 Blood Urea Nitrogen 3 Creatinine 0.85 Estimat Glomerular Filtration 71 Rate Random Glucose 130 Calcium Level 9.1 Magnesium Level 2.2 Urine Collection Type VOIDED Urine Color STRAW Urine Turbidity CLEAR Urine pH 5.5 Urine Specific [place] 1.006 Urine Protein NEG Urine Glucose (UA) NEG Urine Ketones NEG Urine Occult Blood NEG Urine Nitrite NEG Urine Bilirubin NEG Urine Leukocyte Esterase NEG Urine WBC 0-2 Urine Squamous Epithelial 0-2 Cells Microscopic Urinalysis Comment CULT NOT INDICATED Lactic Acid Level 1.4 Blood Gas Puncture Site LT RADIAL Blood Gas Patient Temperature 98.6 Blood Gas HCO3 31 Blood Gas Base Excess 6.0 Blood Gas Oxygen Saturation 91 Arterial Blood pH 7.39 Arterial Blood Partial 52 Pressure CO2 Arterial Blood Partial 88 Pressure O2 Arterial Blood Oxygen Content 20.2 Arterial Blood 5.1 Carboxyhemoglobin Arterial Blood Methemoglobin 1.0 Blood Gas Hemoglobin 15.7 Oxygen Delivery Device NASAL CANNULA Blood Gas Liter Flow 3 Date/Time Procedure Status Source Growth 01/31/17 07:15 Influenza Types A,B Antigen (RAJEEV) - Final Complete Nasal Washing NEGATIVE FOR FLU A AND B ANTIGEN.... 01/31/17 07:15 Aerobic Blood Culture Received Blood Peripheral Pending 01/31/17 07:15 Anaerobic Blood Culture Received Blood Peripheral Pending Result Diagram: 01/31/17 0540 01/31/17 0540 Imaging Last 24 hours Impressions Chest X-Ray 01/31/17 0540 Signed Impressions: Service Date/Time: Tuesday, January 31, 2017 06:15 - CONCLUSION: Coarse basilar interstitial infiltrates Abhinav Jackson MD CT Angiography 01/31/17 0000 Signed Impressions: Service Date/Time: Tuesday, January 31, 2017 10:07 - CONCLUSION: 1. Airspace consolidation within the inferior aspect of the left upper lobe and 10 mm consolidative nodule in the right middle lobe. Differential diagnosis includes infection versus malignancy. There are also very enlarged mediastinal and bilateral hilar lymph nodes present. It is atypical to get lymph nodes this large secondary to most infectious processes so malignancy should also be entertained. However consider correlating with the clinical history and consider followup chest CT in a few weeks to assess for change. 2. No PE is identified. 3. There is a 5 mm nodule along the right lateral tracheal wall to level the lia. This was not visualized previously. Suggest attention to this followup imaging. This could represent a soft tissue nodule or secretions. Abhinav Kraft MD Assessment and Plan Problem List: (1) COPD exacerbation ICD Code: J44.1 Status: Resolved (2) Hypercapnic respiratory failure ICD Code: J96.92 Status: Resolved (3) Mediastinal lymphadenopathy ICD Code: R59.0 Status: Acute Assessment and Plan -COPD exacerbation. This patient is had history of intubations in the past. Fortunately her ABG shows chronic compensated respiratory acidosis. She will be treated with IV Solu-Medrol, DuoNeb's, oxygen. Close monitoring. -Chest x-ray showing consolidative versus malignant process with multiple nodules, versus inflammatory process. Also enlarged mediastinal lymph nodes. We'll treat with Levaquin. The patient will need follow-up imaging as outpatient with Dr. Del Cid.. -Chronic respiratory failure on 2 L nasal cannula continuously. -Hypertension. Continue home meds. -DVT prophylaxis. Jazmin Rodriguez MD Jan 31, 2017 15:09
[2017-02-01] VITALS: BP 142/71; PULSE 125; RESP 20; TEMP 98; O2SAT 97
[2017-02-01 02:22] VITALS: PULSE 119
[2017-02-01 04:00] VITALS: BP 121/87; PULSE 120; RESP 21; TEMP 97.5; O2SAT 99
[2017-02-01] MEDS: RESP: ALBUTEROL 2.5 MG/IPRATROPIUM 0.5 MG NEB (PRN) NEB ×2 (05:13→11:58)
[2017-02-01] MEDS: methylPREDNISolone SOD SUCC 125 MG/2 ML VIAL IVP SCH ×2 (05:16→08:38)
[2017-02-01 06:50] LABS: AUTOMATED NEUTROPHIL # 11.1 TH/MM3 (1.8-7.7); BASOPHIL % 0.3 % (0.0-2.0); HEMATOCRIT 45.9 % (35.0-46.0); HEMO FLAGS DIFF FINAL; LYMPH % 4.5 % (9.0-44.0); LYMPHOCYTE # 0.5 TH/MM3 (1.0-4.8); MEAN CELL VOLUME 85.6 FL (80.0-100.0); MEAN CORPUSCULAR HEMOGLOBIN 27.5 PG (27.0-34.0); MEAN CORPUSCULAR HGB CONC 32.1 % (32.0-36.0); MONO % 1.2 % (0.0-8.0); PLATELET COUNT 316 TH/MM3 (150-450); RED BLOOD COUNT 5.36 MIL/MM3 (4.00-5.30); RED CELL DISTRIBUTION WIDTH 12.6 % (11.6-17.2); WHITE BLOOD COUNT 11.7 TH/MM3 (4.0-11.0)
[2017-02-01 06:58] LABS: POTASSIUM 4.3 MEQ/L (3.5-5.1)
[2017-02-01 07:03] LABS: BICARBONATE 31.7 MEQ/L (21.0-32.0)
[2017-02-01 08:00] VITALS: BP 122/73; PULSE 115; RESP 20; TEMP 96.5; O2SAT 99
[2017-02-01] MEDS: RESP: ALBUTEROL 2.5 MG/IPRATROPIUM 0.5 MG NEB (SCH) INH (08:08)
[2017-02-01 08:09] VITALS: O2SAT 99
[2017-02-01] MEDS: ENOXAPARIN SODIUM 40 MG/0.4 ML SYRINGE SQ SCH (08:38)
[2017-02-01] MEDS: SODIUM CHLORIDE 0.9% FLUSH 5 ML FLUSH IVF SCH (08:39)
[2017-02-01] MEDS ORDERED: LEVOFLOXACIN 750 MG TAB PO SCH (09:00)
[2017-02-01] MEDS ORDERED: DILTIAZEM-CD 120 MG CAP ER PO SCH (10:00)
--- NOTE | 2017-02-01 10:13 | HHI.PR ---
Subjective Remarks The patient states that she feels back to normal and very good today. No dyspnea. She had a dry mouth but that has resolved. She states she ran out of her Cardizem and would like a refill. She is also not aware of who her [facility] primary care physician is. Objective Vitals Vital Signs Date Time Temp Pulse Resp B/P Pulse Ox O2 Delivery O2 Flow Rate FiO2 02/01/17 08:09 99 Nasal Cannula 2.00 02/01/17 08:00 96.5 115 20 122/73 99 02/01/17 04:00 97.5 120 21 121/87 99 02/01/17 02:22 119 02/01/17 00:00 98.0 125 20 142/71 97 01/31/17 21:10 97.8 134 24 142/94 98 01/31/17 19:30 98 Nasal Cannula 2.00 01/31/17 17:41 96.4 124 24 135/89 98 01/31/17 13:24 96.3 126 25 125/79 97 I/O 01/31/17 01/31/17 01/31/17 02/01/17 02/01/17 02/01/17 07:00 15:00 23:00 07:00 15:00 23:00 Output Total 1400 ml Balance -1400 ml Output Urine Total 1400 ml # Voids 1 3 2 # Bowel Movements 0 Result Diagram: 02/01/17 0600 02/01/17 0600 Objective Remarks GENERAL: Well-nourished, well-developed patient. SKIN: Warm and dry. HEAD: Normocephalic. EYES: No scleral icterus. No injection or drainage. NECK: Supple, trachea midline. No JVD or lymphadenopathy. CARDIOVASCULAR: Regular rate and rhythm without murmurs, gallops, or rubs. RESPIRATORY: Breath sounds equal bilaterally. Lungs are clear to auscultation with good air exchange. No accessory muscle use. GASTROINTESTINAL: Abdomen soft, non-tender, nondistended. EXTREMITIES: No cyanosis, or edema. NEUROLOGICAL: Awake, alert, and oriented x 3. Non-focal. A/P Problem List: (1) COPD exacerbation ICD Code: J44.1 Status: Resolved (2) Hypercapnic respiratory failure ICD Code: J96.92 Status: Resolved (3) Mediastinal lymphadenopathy ICD Code: R59.0 Status: Acute Assessment and Plan -COPD exacerbation. This patient is had history of intubations in the past. Fortunately her ABG shows chronic compensated respiratory acidosis. She is much improved today and states she feels back to normal. She may be discharged home today with PCP follow-up. -Chest x-ray showing consolidative versus malignant process with multiple nodules, versus inflammatory process. Also enlarged mediastinal lymph nodes. We'll treat with Levaquin. The patient will need follow-up imaging as outpatient with Dr. Del Cid. -Sinus tachycardia. Chronic. Continue Cardizem. -Chronic respiratory failure on 2 L nasal cannula continuously. -Hypertension. Continue home meds. -DVT prophylaxis. Jazmin Rodriguez MD Feb 01, 2017 10:13
[2017-02-01] MEDS ORDERED: CARD120C4 PO (10:14)
[2017-02-01] MEDS ORDERED: LEVA750T PO (10:14)
[2017-02-01] MEDS ORDERED: MEDR4PAK PO (10:14)
[2017-02-01] MEDS ORDERED: METOPROLOL SUCCINATE 50 MG EXTENDED RELEASE TAB PO ONE (11:30)
[2017-02-01 12:00] VITALS: BP 133/83; PULSE 128; RESP 20; TEMP 96.5; O2SAT 98
[2017-04-29] MEDS ORDERED: IPRA17I INH (12:58)
[2017-04-29] MEDS ORDERED: CLON.5 PO (12:58)
[2017-04-29] MEDS ORDERED: GNP5TAB6 PO (12:58)
[2017-04-29] MEDS ORDERED: SYMB160A INH (12:58)
[2017-04-29] MEDS ORDERED: METO25TA3 PO (12:58)
[2017-04-29] MEDS ORDERED: DOCU1CAP39 PO (12:58)
[2017-04-29] MEDS ORDERED: PANT40TA3 PO (12:58)
[2017-04-29] MEDS ORDERED: MIRTA15 PO (12:58)
[2017-04-29] MEDS ORDERED: LIPI20TA PO (12:58)
[2017-04-29] MEDS ORDERED: CARD180C5 PO (12:58)
[2017-04-29] MEDS ORDERED: PRED20 PO (12:58)
[2017-04-29] MEDS ORDERED: SPIRCAP INH (12:58)
== END 2017-02-01 14:23 | disposition home or self-care (01) | DRG 191 ==
LOC: PHED 05:34 → PHEDA 07:09 → PH3B 07:58
PROVIDERS: ADMIT Family Medicine; ATTEND Family Medicine
DX: J44.1 Chronic obstructive pulmonary disease with (acute) exacerbation (principal); E87.2 Acidosis; J96.12 Chronic respiratory failure with hypercapnia; R91.8 Other nonspecific abnormal finding of lung field; Z99.81 Dependence on supplemental oxygen; I10 Essential (primary) hypertension; Z87.442 Personal history of urinary calculi; F17.210 Nicotine dependence, cigarettes, uncomplicated; Z86.14 Personal history of Methicillin resistant Staphylococcus aureus infection; Z88.5 Allergy status to narcotic agent; F41.9 Anxiety disorder, unspecified; R59.0 Localized enlarged lymph nodes
CPT/HCPCS: 36600; 71020; 71275; 80048; 81001; 82805; 83605; 83735; 85025; 87040; 87804; 94150; 94640; 94664; J1650; J1956; J2930; Q9967

== ENCOUNTER 2017-02-05 00:46 | Inpatient (IN) | payer MEDICARE, MEDICAID ==
[2017-02-05] VITALS (43 sets, daily range): BP systolic 67–224; BP diastolic 45–131; PULSE 93–162; RESP 16–25; TEMP 97.8–98.4; O2SAT 16–100
[~2017-02-05] VITALS: Ht 170.2 cm; Wt 75.9 kg
[~2017-02-05 00:46] MED LIST changes: +LEVA750T PO; +MEDR4PAK PO; -PRED20 PO
[2017-02-05] MEDS ORDERED: SUCCINYLCHOLINE CHLORIDE 200 MG/10 ML VIAL ONE (00:49)
[2017-02-05] MEDS ORDERED: ETOMIDATE 20 MG/10 ML VIAL ONE (00:49)
[2017-02-05] MEDS ORDERED: PROPOFOL 1000 MG/100 ML INJ 100 ML ONE (00:49)
[2017-02-05] MEDS ORDERED: DILTIAZEM HCL 25 MG/5 ML VIAL ONE (00:56)
[2017-02-05] MEDS ORDERED: methylPREDNISolone SOD SUCC 125 MG/2 ML VIAL ONE (00:58)
[2017-02-05] MEDS ORDERED: SUCCINYLCHOLINE CHLORIDE 200 MG/10 ML VIAL IV PUSH ONE (01:00)
[2017-02-05] MEDS ORDERED: SODIUM CHLORID 0.9% 500 ML INJ 500 ML IV ONE (01:00)
[2017-02-05] MEDS: RESP: ALBUTEROL 2.5 MG/IPRATROPIUM 0.5 MG NEB (SCH) INH ×9 (01:00→23:18)
[2017-02-05] MEDS ORDERED: DILTIAZEM HCL 25 MG/5 ML VIAL IV ONE ×2 (01:00→07:15)
[2017-02-05] MEDS ORDERED: SODIUM CHLORIDE 0.9% FLUSH 5 ML FLUSH IVF PRN (01:00)
[2017-02-05] MEDS ORDERED: methylPREDNISolone SOD SUCC 125 MG/2 ML VIAL IV PUSH ONE (01:00)
[2017-02-05] MEDS ORDERED: ETOMIDATE 20 MG/10 ML VIAL IV PUSH ONE (01:00)
[2017-02-05] MEDS ORDERED: PROPOFOL 1000 MG/100 ML INJ 100 ML IV SCH (01:00)
--- NOTE | 2017-02-05 01:15 | PD ---
HPI Chief Complaint: Cardiac Complaint Time Seen by Provider: 00:57 Travel History International Travel<30 days: No Contact w/Intl Traveler<30days: No Traveled to known affect area: No History of Present Illness HPI The patient is a 51-year-old female who presents to the emergency department via EMS for shortness of breath. EMS states they received a call for shortness of breath and when they arrived the patient appeared to be in SVT versus atrial fibrillation. EMS states the patient's GCS was 15 and they subsequently administered adenosine 6 mg intravenously. They state that the underlying rhythm was atrial fibrillation with RVR. EMS they gave the patient 20 mg of Cardizem intravenously and they stated she went unresponsive. They then noted that the patient had increased work of breathing and decreased mental status prior to arrival, however, they lost IV access and were unable to intubate in the field. They do note the patient has a history of atrial fibrillation, hypertension, and COPD. The patient was unable to provide any information. PFSH Past Medical History Anxiety: Yes (LAST ANXIETY ATTACK WAS IN 2000.) Depression: No Cancer: No High Cholesterol: No COPD: Yes Diabetes: No Diminished Hearing: No Endocrine: No Genitourinary: Yes Hypertension: Yes Immune Disorder: No Kidney Stones: Yes (AT AGE 15.) Musculoskeletal: No Neurologic: No Psychiatric: Yes Reproductive: No Respiratory: Yes Immunizations Current: No Thyroid Disease: No Menopausal: Yes : 9 Para: 4 Miscarriage: 5 Dilation and Curettage (D&C): Yes Tubal Ligation: Yes Past Surgical History Gynecologic Surgery: Yes (TUBES TIED.) Other Surgery: Yes (HAND SURGERY ) Social History Alcohol Use: Yes (RARELY) Tobacco Use: Yes (1/2 PPD) Substance Use: No Allergies-Medications (Allergen,Severity, Reaction): Coded Allergies: Valium (Verified Allergy, Severe, HIVES, 01/31/17) *MDRO Multi-Drug Resistant Organism (Verified Adverse Reaction, Unknown, ) MRSA PCR Screen POSITIVE - 03/19/2016 Reported Meds & Prescriptions Reported Meds & Active Scripts Active Medrol Dosepak (Methylprednisolone) 4 Mg Dspk 4 Mg PO DIRECTED Per Pharmacist direction Levaquin (Levofloxacin) 750 Mg Tab 750 Mg PO Q24H 5 Days Cardizem CD 24 HR (Diltiazem CD 24 HR) 120 Mg Caper 120 Mg PO DAILY Reported [Bp Med] 0 Advair Diskus Inh (Fluticasone-Salmeterol Inh) 250-50 Mcg/Blist Aer 1 Puff INH BID Rinse mouth after use. Duoneb (Ipratropium-Albuterol Neb) 0.5-2.5 Mg/3 Ml Neb 1 Nebule INH Q4HR NEB Proair Hfa 8.5 GM Inh (Albuterol Sulfate) 90 Mcg/Act Aer 2 Puff INH Q4-6H PRN 108 mcg/actuation Review of Systems ROS Limitations: Clinical Condition, Unresponsive, Other: (history obtained from EMS) Except as stated in HPI: all other systems reviewed are Neg Physical Exam Exam Limitations: Clinical Condition Narrative GENERAL: 51-year-old female who is unresponsive with increased respiratory rate of 48. SKIN: Slightly diaphoretic.. HEAD: Atraumatic. Normocephalic. EYES: Pupils equal and round. 3 mm bilateral and reactive. ENT: No nasal bleeding or discharge. Mucous membranes pink and moist. NECK: Trachea midline. No JVD. CARDIOVASCULAR: Irregularly irregular, tachycardic above 150. RESPIRATORY: Tachypnea with a respiratory rate of 48. Type breath sounds bilateral with prolonged expiratory phase and wheezes. GASTROINTESTINAL: Abdomen soft, non-tender, nondistended. MUSCULOSKELETAL: No obvious deformities noted on the lower extremities.. NEUROLOGICAL: Eyes open, nonverbal, does not respond to questions or commands. Does not withdrawal to pain. PSYCHIATRIC: Unable to assess. Data Data Last Documented VS Vital Signs Date Time Temp Pulse Resp B/P Pulse Ox O2 Delivery O2 Flow Rate FiO2 02/05/17 02:23 129 16 117/86 100 02/05/17 02:18 Ventilator 02/05/17 01:45 100 02/05/17 00:50 98.4 Orders Propofol 1000 Mg/100 Ml Inj (Diprivan 10 (02/05/17 00:49) Etomidate Inj (Amidate Inj) (02/05/17 00:49) Succinylcholine Inj (Quelicin Inj) (02/05/17 00:49) Diltiazem Inj (Cardizem Inj) (02/05/17 00:56) Methylprednisolone So Succ Inj (Solumedr (02/05/17 00:58) Etomidate Inj (Amidate Inj) (02/05/17 01:00) Succinylcholine Inj (Quelicin Inj) (02/05/17 01:00) Methylprednisolone So Succ Inj (Solumedr (02/05/17 01:00) Diltiazem Inj (Cardizem Inj) (02/05/17 01:00) Complete Blood Count With Diff (02/05/17 00:57) Comprehensive Metabolic Panel (02/05/17 00:57) B-Type Natriuretic Peptide (02/05/17 00:57) Act Partial Throm Time (Ptt) (02/05/17 00:57) Prothrombin Time / Inr (Pt) (02/05/17 00:57) Magnesium (Mg) (02/05/17 00:57) Ckmb (Isoenzyme) Profile (02/05/17:57) Troponin I (02/05/17:57) Arterial Blood Gas (Abg) (02/05/17 00:57) Urinalysis - C+S If Indicated (02/05/17 00:57) Blood Culture (02/05/17 00:57) Iv Access Insert/Monitor (02/05/17 00:57) Electrocardiogram (02/05/17 00:57) Ecg Monitoring (02/05/17 00:57) Oximetry (02/05/17 00:57) Oxygen Administration (02/05/17 00:57) Chest, Single Ap (02/05/17 00:57) Urinary Catheter Insert/Apply (02/05/17 00:57) Sodium Chloride 0.9% Flush (Ns Flush) (02/05/17 01:00) Albuterol-Ipratropium Neb (Duoneb Neb) (02/05/17 01:00) Propofol 1000 Mg/100 Ml Inj (Diprivan 10 (02/05/17 01:00) ^ Infusion (02/05/17 00:57) RASS (02/05/17 00:57) Neurological Rass Scale RYAN.Q2H (02/05/17 00:57) Sodium Chlorid 0.9% 500 Ml Inj (Ns 500 M (02/05/17 01:00) Lactic Acid (02/05/17 00:57) Midazolam Inj (Versed Inj) (02/05/17 01:30) Midazolam Inj (Versed Inj) (02/05/17 01:26) Sodium Chlor 0.9% 1000 Ml Inj (Ns 1000 M (02/05/17 01:30) Midazolam Inj (Versed Inj) (02/05/17 01:45) Midazolam Inj (Versed Inj) (02/05/17 01:44) Digoxin Inj (Lanoxin Inj) (02/05/17 02:15) Labs Laboratory Tests Test 02/05/17 02/05/17 02/05/17 01:03 01:06 01:20 White Blood Count 18.6 TH/MM3 Red Blood Count 5.42 MIL/MM3 Hemoglobin 15.5 GM/DL Hematocrit 47.0 % Mean Corpuscular Volume 86.7 FL Mean Corpuscular Hemoglobin 28.6 PG Mean Corpuscular Hemoglobin 33.0 % Concent Red Cell Distribution Width 13.6 % Platelet Count 244 TH/MM3 Mean Platelet Volume 9.6 FL Neutrophils (%) (Auto) 83.1 % Lymphocytes (%) (Auto) 11.0 % Monocytes (%) (Auto) 4.7 % Eosinophils (%) (Auto) 0.9 % Basophils (%) (Auto) 0.3 % Neutrophils # (Auto) 15.5 TH/MM3 Lymphocytes # (Auto) 2.1 TH/MM3 Monocytes # (Auto) 0.9 TH/MM3 Eosinophils # (Auto) 0.2 TH/MM3 Basophils # (Auto) 0.1 TH/MM3 CBC Comment AUTO DIFF Differential Total Cells 100 Counted Neutrophils % (Manual) 85 % Band Neutrophils % 1 % Lymphocytes % 9 % Monocytes % 4 % Neutrophils # (Manual) 16.2 TH/MM3 Myelocytes 1 % Nucleated Red Blood Cells 1 /100 WBC Differential Comment FINAL DIFF MANUAL Toxic Vacuolation PRESENT Platelet Estimate NORMAL Platelet Morphology Comment NORMAL Red Cell Morphology Comment NORMAL Prothrombin Time 10.0 SEC Prothromb Time International 0.9 RATIO Ratio Activated Partial 22.9 SEC Thromboplast Time Sodium Level 140 MEQ/L Potassium Level 4.8 MEQ/L Chloride Level 100 MEQ/L Carbon Dioxide Level 32.9 MEQ/L Anion Gap 7 MEQ/L Blood Urea Nitrogen 16 MG/DL Creatinine 0.95 MG/DL Estimat Glomerular Filtration 62 ML/MIN Rate Random Glucose 214 MG/DL Calcium Level 8.8 MG/DL Magnesium Level 2.4 MG/DL Total Bilirubin 0.2 MG/DL Aspartate Amino Transf 35 U/L (AST/SGOT) Alanine Aminotransferase 55 U/L (ALT/SGPT) Alkaline Phosphatase 94 U/L Total Creatine Kinase 50 U/L Troponin I LESS THAN 0.02 NG/ML B-Type Natriuretic Peptide 29 PG/ML Total Protein 7.4 GM/DL Albumin 3.3 GM/DL Urine Color LIGHT-YELLOW Urine Turbidity CLEAR Urine pH 8.0 Urine Specific [place] 1.006 Urine Protein NEG mg/dL Urine Glucose (UA) NEG mg/dL Urine Ketones NEG mg/dL Urine Occult Blood NEG Urine Nitrite NEG Urine Bilirubin NEG Urine Urobilinogen LESS THAN 2.0 MG/DL Urine Leukocyte Esterase NEG Urine RBC 1 /hpf Urine WBC LESS THAN 1 /hpf Urine Hyaline Casts 1 /lpf Urine Mucus FEW /lpf Microscopic Urinalysis Comment CULT NOT INDICATED Lactic Acid Level 2.4 mmol/L Blood Gas Puncture Site RT RADIAL Blood Gas Patient Temperature 98.6 Blood Gas HCO3 29 mmol/L Blood Gas Base Excess 1.3 mmol/L Blood Gas Oxygen Saturation 95 % Arterial Blood pH 7.16 Arterial Blood Partial 85 mmHg Pressure CO2 Arterial Blood Partial 364 mmHG Pressure O2 Arterial Blood Oxygen Content 20.4 Vol % Arterial Blood 3.4 % Carboxyhemoglobin Arterial Blood Methemoglobin 0.7 % Blood Gas Hemoglobin 14.6 G/DL Oxygen Delivery Device VENTILATOR Blood Gas Ventilator Setting PCAC Blood Gas Inspired Oxygen 100 % MDM Medical Decision Making Medical Screen Exam Complete: Yes Emergency Medical Condition: Yes Medical Record Reviewed: Yes Interpretation(s) EKG reveals atrial fibrillation with RVR, rate 108. EKG #2 reveals atrial fibrillation with RVR, rate 143 Last Impressions Chest X-Ray 02/05/17 0057 Signed Impressions: Service Date/Time: Sunday, February 05, 2017 01:19 - CONCLUSION: 1. ET tube in good position. 2. Interval resolution of coarse bilateral lower lung interstitial infiltrates. Roberth Amaro MD Laboratory Tests Test 02/05/17 02/05/17 02/05/17 01:03 01:06 01:20 White Blood Count 18.6 TH/MM3 Red Blood Count 5.42 MIL/MM3 Hemoglobin 15.5 GM/DL Hematocrit 47.0 % Mean Corpuscular Volume 86.7 FL Mean Corpuscular Hemoglobin 28.6 PG Mean Corpuscular Hemoglobin 33.0 % Concent Red Cell Distribution Width 13.6 % Platelet Count 244 TH/MM3 Mean Platelet Volume 9.6 FL Neutrophils (%) (Auto) 83.1 % Lymphocytes (%) (Auto) 11.0 % Monocytes (%) (Auto) 4.7 % Eosinophils (%) (Auto) 0.9 % Basophils (%) (Auto) 0.3 % Neutrophils # (Auto) 15.5 TH/MM3 Lymphocytes # (Auto) 2.1 TH/MM3 Monocytes # (Auto) 0.9 TH/MM3 Eosinophils # (Auto) 0.2 TH/MM3 Basophils # (Auto) 0.1 TH/MM3 CBC Comment AUTO DIFF Prothrombin Time 10.0 SEC Prothromb Time International 0.9 RATIO Ratio Activated Partial 22.9 SEC Thromboplast Time Sodium Level 140 MEQ/L Potassium Level 4.8 MEQ/L Chloride Level 100 MEQ/L Carbon Dioxide Level 32.9 MEQ/L Anion Gap 7 MEQ/L Blood Urea Nitrogen 16 MG/DL Creatinine 0.95 MG/DL Estimat Glomerular Filtration 62 ML/MIN Rate Random Glucose 214 MG/DL Calcium Level 8.8 MG/DL Magnesium Level 2.4 MG/DL Total Bilirubin 0.2 MG/DL Aspartate Amino Transf 35 U/L (AST/SGOT) Alanine Aminotransferase 55 U/L (ALT/SGPT) Alkaline Phosphatase 94 U/L Total Creatine Kinase 50 U/L Troponin I LESS THAN 0.02 NG/ML B-Type Natriuretic Peptide 29 PG/ML Total Protein 7.4 GM/DL Albumin 3.3 GM/DL Urine Color LIGHT-YELLOW Urine Turbidity CLEAR Urine pH 8.0 Urine Specific [place] 1.006 Urine Protein NEG mg/dL Urine Glucose (UA) NEG mg/dL Urine Ketones NEG mg/dL Urine Occult Blood NEG Urine Nitrite NEG Urine Bilirubin NEG Urine Urobilinogen LESS THAN 2.0 MG/DL Urine Leukocyte Esterase NEG Urine RBC 1 /hpf Urine WBC LESS THAN 1 /hpf Urine Hyaline Casts 1 /lpf Urine Mucus FEW /lpf Microscopic Urinalysis Comment CULT NOT INDICATED Lactic Acid Level 2.4 mmol/L Blood Gas Puncture Site RT RADIAL Blood Gas Patient Temperature 98.6 Blood Gas HCO3 29 mmol/L Blood Gas Base Excess 1.3 mmol/L Blood Gas Oxygen Saturation 95 % Arterial Blood pH 7.16 Arterial Blood Partial 85 mmHg Pressure CO2 Arterial Blood Partial 364 mmHG Pressure O2 Arterial Blood Oxygen Content 20.4 Vol % Arterial Blood 3.4 % Carboxyhemoglobin Arterial Blood Methemoglobin 0.7 % Blood Gas Hemoglobin 14.6 G/DL Oxygen Delivery Device VENTILATOR Blood Gas Ventilator Setting PCAC Blood Gas Inspired Oxygen 100 % Differential Diagnosis Differential diagnosis includes COPD exacerbation, asthma exacerbation, pneumothorax, tension pneumothorax, congestive heart failure, acute coronary syndrome, pulmonary embolism, aspiration. Narrative Course IV was established, labs were drawn and sent, and the patient was placed on cardiac telemetry monitoring and continuous pulse oximetry monitoring. The patient had a respiratory rate of 48, was unresponsive, with minimal air movement. Therefore, the patient was intubated using rapid sequence intubation with etomidate 20 mg and succinylcholine 100 mg intravenously with a 7.5 endotracheal tube. The patient then was provided Cardizem 25 mg intravenously for A. fib with a heart rate in the 150s and a blood pressure of 224/113. The patient was placed on a propofol drip for sedation and postintubation chest x- ray was obtained. Chest x-ray reveals proper endotracheal tube placement. The patient's blood pressure dropped to systolic in the 60s according to nursing staff, the patient was then provided another dose of IV fluids in the patient's blood pressure came up to 106 systolic. The patient's propofol was held during the hypotension and the patient was administered Versed for sedation. The patient's blood pressure did improve, however, her atrial fibrillation with RVR returned with a heart rate in the 140s. Therefore, the patient was administered a loading dose of digoxin 0.5 mg intravenously. Labs do reveal elevated hemoglobin, hematocrit, white count, consistent with hemoconcentration and probable dehydration. The patient's ABG does reveal acidosis with a pH of 7.16 and elevated PCO2 82 consistent with respiratory acidosis, lactic acid is mildly elevated at 2.7, may be secondary to hypoxia. The patient will be admitted to the intensive care unit. The on-call chyron operator was paged for admission. Critical Care Narrative Aggregate critical care time was 45 minutes. Time to perform other separately billable procedures was not included in the critical care time. My time did not include minutes spent treating any other patients simultaneously or on activities that did not directly contribute to the patient's treatment. The services I provided to this patient were to treat and/or prevent clinically significant deterioration that could result in: Anoxia, hypoxia, aspiration, arrhythmia, pulseless electrical activity, . I provided critical care services requiring my management, as noted below: Chart data review, documentation time, medication orders and management, vital sign assessments/reviewing monitor data, ordering and reviewing lab tests, ordering and interpreting/reviewing x-rays and diagnostic studies, care of the patient and discussion of the patient with the admitting physicians. Procedures Procedure Narrative INTUBATION: The patient was put in optimal position for the procedure. Rapid sequence intubation was initiated by me using 20 milligrams of etomidate IV and 100 milligrams of succinylcholine IV. The patient was intubated with a 7-5 cuffed endotracheal tube. Tube placement was confirmed by visualization of the tube and balloon passing through the cords, capnometry and subsequent chest x- ray. Breath sounds were equal and well aerated bilaterally postintubation. No breath sounds over stomach. Patient tolerated procedure well. Physician Communication Physician Communication The on-call chyron operator was paged for admission. I discussed the patient Dr. Kelly who agrees with admission. Diagnosis Primary Impression: Hypercapnic respiratory failure Qualified Code: J96.22 - Acute on chronic respiratory failure with hypercapnia Additional Impression: Atrial fibrillation with rapid ventricular response Admitting Information Admitting Physician Requests: Admit Condition: Serious Zackery Donahue MD Feb 05, 2017 01:15
[2017-02-05 01:23] LABS: AUTOMATED NEUTROPHIL # 15.5 TH/MM3 (1.8-7.7); BASOPHIL # 0.1 TH/MM3 (0-0.2); BASOPHIL % 0.3 % (0.0-2.0); EOSINOPHIL # 0.2 TH/MM3 (0-0.4); EOSINOPHIL % 0.9 % (0.0-4.0); LYMPHOCYTE # 2.1 TH/MM3 (1.0-4.8); MEAN CELL VOLUME 86.7 FL (80.0-100.0); MEAN CORPUSCULAR HEMOGLOBIN 28.6 PG (27.0-34.0); MONO % 4.7 % (0.0-8.0); NEUT % 83.1 % (16.0-70.0); PLATELET COUNT 244 TH/MM3 (150-450); RED BLOOD COUNT 5.42 MIL/MM3 (4.00-5.30); RED CELL DISTRIBUTION WIDTH 13.6 % (11.6-17.2); WHITE BLOOD COUNT 18.6 TH/MM3 (4.0-11.0)
[2017-02-05] MEDS ORDERED: MIDAZOLAM HCL 5 MG/ML VIAL (1 ML) ONE ×2 (01:26→01:44)
--- NOTE | 2017-02-05 01:27 | RADRPT ---
EXAM DATE/TIME: 02/05/2017 01:19 [facility] COMPARISON: CHEST PA & LAT, January 31, 2017, 6:15. CHEST SINGLE AP, January 15, 2017, 9:26. INDICATIONS : Post intubation. MEDICAL HISTORY : Hypertension. Chronic obstructive pulmonary disease. SURGICAL HISTORY : None. ENCOUNTER: Initial ACUITY: 1 day PAIN SCORE: Non-responsive. LOCATION: Bilateral chest FINDINGS: A single view of the chest demonstrates the lungs to be symmetrically aerated without evidence of mas s, infiltrate or effusion. Previously noted coarse interstitial infiltrates in the lower lungs have resolved. The cardiomediastinal contours are unremarkable. Osseous structures are intact. Endotrac heal tube tip well above the lia. Gastric tube traverses the [id number]. CONCLUSION: 1. ET tube in good position. 2. Interval resolution of coarse bilateral lower lung interstitial infiltrates. Roberth Amaro MD on February 05, 2017 at 1:25 Board Certified Radiologist. This report was verified electronically.
[2017-02-05 01:29] LABS: BLOOD GAS BASE EXCESS 1.3 mmol/L (-2-2); BLOOD GAS CARBOXYHEMOGLOBIN 3.4 % (0-4); BLOOD GAS HCO3 29 mmol/L (22-26); BLOOD GAS METHEMOGLOBIN 0.7 % (0-2); BLOOD GAS O2 HGB SATURATION 95 % (90-100); BLOOD GAS OXYGEN CONTENT 20.4 Vol % (12.0-20.0); BLOOD GAS PCO2 85 mmHg (38-42); BLOOD GAS PO2 364 mmHG (61-120); BLOOD GAS TOTAL HGB 14.6 G/DL (12.0-16.0); CRITICAL VALUE YES; OXYGEN DEVICE VENTILATOR; TEMP CORR TO 98.6
[2017-02-05 01:30] LABS: DRAW SITE RT RADIAL; FIO2 100 %; NUMBER OF ARTERIAL PUNCTURES 1; STAT YES; VENT SETTINGS PCAC
[2017-02-05] MEDS ORDERED: MIDAZOLAM HCL 5 MG/5 ML VIAL IV PUSH ONE ×2 (01:30→01:45)
[2017-02-05] MEDS ORDERED: SODIUM CHLOR 0.9% 1000 ML INJ 1,000 ML IV ONE (01:30)
[2017-02-05 01:35] LABS: APTT (PATIENT) 22.9 SEC (24.3-30.1); INTERNATIONAL NORMALIZED RATIO 0.9 RATIO
[2017-02-05 01:39] LABS: BLOOD, URINE NEG (NEG); COMMENT (UR) CULT NOT INDICATED; CULTURE IF INDICATED CULT NOT INDICATED; GLUCOSE,URINE NEG (NEG); HYALINE CAST, URINE 1 /lpf (RARE); KETONE, URINE NEG (NEG); MUCUS URINE FEW /lpf (OCC); NITRITE,URINE NEG (NEG); URINE COLOR LIGHT-YELLOW (YELLW/STRAW)
[2017-02-05 01:48] LABS: ALKALINE PHOSPHATASE 94 U/L (45-117); ALT (GPT) 55 U/L (10-53); ANION GAP 7 MEQ/L (5-15); AST (GOT) 35 U/L (15-37); BICARBONATE 32.9 MEQ/L (21.0-32.0); BLOOD UREA NITROGEN 16 MG/DL (7-18); CHLORIDE 100 MEQ/L (98-107); GLOMERULAR FILTRATION RATE 62 ML/MIN (>89); MAGNESIUM 2.4 MG/DL (1.5-2.5); POTASSIUM 4.8 MEQ/L (3.5-5.1); SODIUM (NA) 140 MEQ/L (136-145); TOTAL BILIRUBIN ADULT 0.2 MG/DL (0.2-1.0)
[2017-02-05 01:49] LABS: CREATINE KINASE 50 U/L (26-192)
[2017-02-05 02:04] LABS: HEMO FLAGS AUTO DIFF
[2017-02-05 02:08] LABS: BANDS 1 % (0-6); CORRECTED NUCLEATED RBC 1 /100 WBC (0-0); MYELOCYTES 1 % (0-0); NEUTROPHIL # MANUAL DIFF 16.2 TH/MM3 (1.8-7.7); POLYS (SEG NEUTROPHILS) 85 % (16-70); SCAN/DIFF FINAL DIFF MANUAL; WBC DIFF SAMPLE 100
[2017-02-05 02:09] LABS: PLATELET ESTIMATE SMEAR NORMAL (NORMAL)
[2017-02-05 02:10] LABS: PLATELET MORPHOLOGY NORMAL (NORMAL); TOXIC VACUOLATION PRESENT (NONE SEEN)
[2017-02-05] MEDS ORDERED: DIGOXIN 0.5 MG/2 ML VIAL IV PUSH ONE (02:15)
--- NOTE | 2017-02-05 02:44 | HHI.HP ---
HPI Service Critical Care Medicine Primary Care Physician Unknown Admission Diagnosis COPD exacerbation, A. fib with RVR, respiratory distress Diagnosis: (1) COPD with acute exacerbation Diagnosis: Principal (2) Hypercapnic respiratory failure Diagnosis: Principal (3) A-fib (4) Atrial fibrillation with rapid ventricular response Chief Complaint: SOB Travel History International Travel<30 Days: No Contact w/Intl Traveler <30 Da: No Traveled to Known Affected Are: No History of Present Illness 51 y/o woman discharged 2 days ago after treatment for CO2 exacerbation presents again tonight with same requiring intubation and mechanical ventilation. Past Family Social History Allergies: Coded Allergies: Valium (Verified Allergy, Severe, HIVES, 01/31/17) *MDRO Multi-Drug Resistant Organism (Verified Adverse Reaction, Unknown, ) MRSA PCR Screen POSITIVE - 03/19/2016 Physical Exam Vital Signs Vital Signs Date Time Temp Pulse Resp B/P Pulse Ox O2 Delivery O2 Flow Rate FiO2 02/05/17 02:30 136 16 125/79 100 Ventilator 02/05/17 02:23 129 16 117/86 100 02/05/17 02:18 134 16 99/72 100 Ventilator 02/05/17 02:09 160 16 116/81 100 Ventilator 02/05/17 02:05 150 16 107/72 100 Ventilator 02/05/17 01:58 135 16 104/72 100 Ventilator 02/05/17 01:56 141 16 100/63 100 Ventilator 02/05/17 01:52 145 16 97/61 100 Ventilator 02/05/17 01:50 138 16 105/67 100 Ventilator 02/05/17 01:45 100 100 02/05/17 01:43 137 16 101/66 100 Ventilator 02/05/17 01:39 135 16 69/51 100 Ventilator 02/05/17 01:33 144 16 89/62 100 Ventilator 02/05/17 01:26 115 16 86/46 98 Ventilator 02/05/17 01:22 109 16 77/57 97 Ventilator 02/05/17 01:19 105 16 67/45 97 Ventilator 02/05/17 00:55 100 02/05/17 00:50 98.4 02/05/17 00:48 162 24 224/131 92 Physical Exam PE: P 130s, irreg, BP 138/68, R 16 vent Head: Atraumatic. Neck: Supple, orally intubated. Lungs: Poor air entry bilateral, diffuse wheezes. Heart: Irreg Irreg, no m,r. no JVD Abdomen: Denign, soft. Extremities: Warm, well perfused. 2+ chronic edema Neuro: GCS 15 on arrival. Now sedated fo vent synchrony. Moves 4 limbs spontaneously. Laboratory Laboratory Tests Test 02/05/17 02/05/17 02/05/17 01:03 01:06 01:20 White Blood Count 18.6 Red Blood Count 5.42 Hemoglobin 15.5 Hematocrit 47.0 Mean Corpuscular Volume 86.7 Mean Corpuscular Hemoglobin 28.6 Mean Corpuscular Hemoglobin 33.0 Concent Red Cell Distribution Width 13.6 Platelet Count 244 Mean Platelet Volume 9.6 Neutrophils (%) (Auto) 83.1 Lymphocytes (%) (Auto) 11.0 Monocytes (%) (Auto) 4.7 Eosinophils (%) (Auto) 0.9 Basophils (%) (Auto) 0.3 Neutrophils # (Auto) 15.5 Lymphocytes # (Auto) 2.1 Monocytes # (Auto) 0.9 Eosinophils # (Auto) 0.2 Basophils # (Auto) 0.1 CBC Comment AUTO DIFF Differential Total Cells 100 Counted Neutrophils % (Manual) 85 Band Neutrophils % 1 Lymphocytes % 9 Monocytes % 4 Neutrophils # (Manual) 16.2 Myelocytes 1 Nucleated Red Blood Cells 1 Differential Comment FINAL DIFF MANUAL Toxic Vacuolation PRESENT Platelet Estimate NORMAL Platelet Morphology Comment NORMAL Red Cell Morphology Comment NORMAL Prothrombin Time 10.0 Prothromb Time International 0.9 Ratio Activated Partial 22.9 Thromboplast Time Sodium Level 140 Potassium Level 4.8 Chloride Level 100 Carbon Dioxide Level 32.9 Anion Gap 7 Blood Urea Nitrogen 16 Creatinine 0.95 Estimat Glomerular Filtration 62 Rate Random Glucose 214 Calcium Level 8.8 Magnesium Level 2.4 Total Bilirubin 0.2 Aspartate Amino Transf 35 (AST/SGOT) Alanine Aminotransferase 55 (ALT/SGPT) Alkaline Phosphatase 94 Total Creatine Kinase 50 Troponin I LESS THAN 0.02 B-Type Natriuretic Peptide 29 Total Protein 7.4 Albumin 3.3 Urine Color LIGHT-YELLOW Urine Turbidity CLEAR Urine pH 8.0 Urine Specific [place] 1.006 Urine Protein NEG Urine Glucose (UA) NEG Urine Ketones NEG Urine Occult Blood NEG Urine Nitrite NEG Urine Bilirubin NEG Urine Urobilinogen LESS THAN 2.0 Urine Leukocyte Esterase NEG Urine RBC 1 Urine WBC LESS THAN 1 Urine Hyaline Casts 1 Urine Mucus FEW Microscopic Urinalysis Comment CULT NOT INDICATED Lactic Acid Level 2.4 Blood Gas Puncture Site RT RADIAL Blood Gas Patient Temperature 98.6 Blood Gas HCO3 29 Blood Gas Base Excess 1.3 Blood Gas Oxygen Saturation 95 Arterial Blood pH 7.16 Arterial Blood Partial 85 Pressure CO2 Arterial Blood Partial 364 Pressure O2 Arterial Blood Oxygen Content 20.4 Arterial Blood 3.4 Carboxyhemoglobin Arterial Blood Methemoglobin 0.7 Blood Gas Hemoglobin 14.6 Oxygen Delivery Device VENTILATOR Blood Gas Ventilator Setting PCAC Blood Gas Inspired Oxygen 100 Date/Time Procedure Status Source Growth 02/05/17 01:08 Aerobic Blood Culture Received Blood Peripheral Pending 02/05/17 01:08 Anaerobic Blood Culture Received Blood Peripheral Pending Result Diagram: 02/05/1710202/05/17102 Assessment and Plan Problem List: (1) Hypercapnic respiratory failure ICD Code: J96.92 Status: Acute (2) COPD with acute exacerbation ICD Code: J44.1 Status: Acute (3) Atrial fibrillation with rapid ventricular response ICD Code: I48.91 Status: Acute Assessment and Plan Plan: 1. Mechanical ventilation, prvc mode. 2. Bronchodilators. 3. Steroids q8h. 4. SSI for steroid induced hyperglycemia. 5. Pepcid. 6. Heparin sq DVT px. 7. Levaquin. 8. Minimal sedation. Overall impression: Critically ill with respiratory failure requiring mechanical ventilation and ICU admission. Critical care 40 mins Problem Qualifiers (1) Hypercapnic respiratory failure: Qualified Code: J96.22 - Acute on chronic respiratory failure with hypercapnia (2) A-fib: Qualified Code: I48.2 - Permanent atrial fibrillation Chicho Kelly MD Feb 05, 2017 02:44
[2017-02-05] MEDS ORDERED: ONDANSETRON HCL 4 MG/2 ML VIAL IV PRN (02:45)
[2017-02-05] MEDS ORDERED: CHLORHEXIDINE GLUCONATE 2 % 1 PACK (2 CLOTHS) TOP PRN (02:45)
[2017-02-05] MEDS ORDERED: SODIUM CHLORIDE 0.9% FLUSH 5 ML FLUSH IV FLUSH PRN (02:45)
[2017-02-05] MEDS ORDERED: MISCELLANEOUS NURSING INFORMATION XX SCH (02:45)
[2017-02-05] MEDS ORDERED: ACETAMINOPHEN 325 MG TAB PO PRN (02:45)
[2017-02-05] MEDS ORDERED: methylPREDNISolone SOD SUCC 125 MG/2 ML VIAL IV PUSH SCH (02:45)
[2017-02-05] MEDS: LEVOFLOXACIN 750 MG PREMIX INJ 150 ML IV SCH (03:55)
[2017-02-05] MEDS: SODIUM CHLOR 0.9% 1000 ML INJ 1,000 ML IV SCH ×2 (04:01→18:02)
[2017-02-05] MEDS: CHLORHEXIDINE GLUCONATE 2 % 1 PACK (2 CLOTHS) TOP SCH (04:20)
[2017-02-05] MEDS: PROPOFOL 1000 MG/100 ML INJ 100 ML IV SCH ×5 (04:45→21:59)
[2017-02-05 05:52] LABS: BLOOD GAS BASE EXCESS -0.5 mmol/L (-2-2); BLOOD GAS CARBOXYHEMOGLOBIN 1.9 % (0-4); BLOOD GAS HCO3 26 mmol/L (22-26); BLOOD GAS O2 HGB SATURATION 96 % (90-100); BLOOD GAS OXYGEN CONTENT 19.1 Vol % (12.0-20.0); BLOOD GAS PCO2 62 mmHg (38-42); BLOOD GAS PO2 109 mmHG (61-120); TEMP CORR TO 98.6
[2017-02-05 05:53] LABS: CRITICAL VALUE YES; DRAW SITE RT BRACHIAL; FIO2 40 %; NUMBER OF ARTERIAL PUNCTURES 1; OXYGEN DEVICE VENTILATOR; STAT NO; VENT SETTINGS PRVC/AC
[2017-02-05] MEDS: CHLORHEXIDINE 0.12% (ORAL KIT) 15 ML CUP MT SCH ×2 (07:48→22:03)
[2017-02-05] MEDS: HEPARIN SODIUM - SQ 10,000 UNITS/ML VIAL SQ SCH ×2 (07:49→22:02)
[2017-02-05] MEDS: methylPREDNISolone SOD SUCC 125 MG/2 ML VIAL IV PUSH SCH ×2 (07:51→16:23)
[2017-02-05] MEDS: SODIUM CHLORIDE 0.9% FLUSH 5 ML FLUSH IV FLUSH SCH ×2 (07:51→22:03)
[2017-02-05] MEDS: FAMOTIDINE 20 MG TAB PO SCH ×2 (07:51→22:02)
[2017-02-05] MEDS: DILTIAZEM HCL 60 MG TAB PO SCH ×4 (08:18→22:00)
[2017-02-05] MEDS ORDERED: DEXTROSE 50% IN WATER 50 ML VIAL(D50) IV PUSH PRN (10:00)
[2017-02-05] MEDS ORDERED: GLUCAGON 1 MG/ML VIAL OTHER PRN (10:00)
[2017-02-05 10:45] LABS: BLOOD GAS BASE EXCESS 0.3 mmol/L (-2-2); BLOOD GAS CARBOXYHEMOGLOBIN 1.8 % (0-4); BLOOD GAS HCO3 26 mmol/L (22-26); BLOOD GAS METHEMOGLOBIN 1.2 % (0-2); BLOOD GAS O2 HGB SATURATION 96 % (90-100); BLOOD GAS OXYGEN CONTENT 19.5 Vol % (12.0-20.0); BLOOD GAS PCO2 54 mmHg (38-42); BLOOD GAS PO2 142 mmHg (61-120); BLOOD GAS TOTAL HGB 14.3 G/DL (12.0-16.0); CRITICAL VALUE YES; OXYGEN DEVICE VENTILATOR; TEMP CORR TO 98.6
[2017-02-05 10:46] LABS: DRAW SITE LT RADIAL; FIO2 40 %; NUMBER OF ARTERIAL PUNCTURES 1; STAT NO; ULNAR PULSE PRESENT; VENT SETTINGS PRVC/AC
[2017-02-05] MEDS: INSULIN NovoLIN REGULAR SUPPLEMENTAL SCALE SQ SCH ×3 (11:00→22:02)
[2017-02-05 11:16] LABS: AUTOMATED NEUTROPHIL # 11.8 TH/MM3 (1.8-7.7); BASOPHIL # 0.1 TH/MM3 (0-0.2); BASOPHIL % 0.9 % (0.0-2.0); HEMATOCRIT 43.6 % (35.0-46.0); HEMO FLAGS DIFF FINAL; LYMPH % 3.1 % (9.0-44.0); LYMPHOCYTE # 0.4 TH/MM3 (1.0-4.8); MEAN CELL VOLUME 86.3 FL (80.0-100.0); MEAN CORPUSCULAR HEMOGLOBIN 28.1 PG (27.0-34.0); MEAN CORPUSCULAR HGB CONC 32.5 % (32.0-36.0); MONO % 2.3 % (0.0-8.0); NEUT % 93.7 % (16.0-70.0); PLATELET COUNT 285 TH/MM3 (150-450); RED BLOOD COUNT 5.04 MIL/MM3 (4.00-5.30); RED CELL DISTRIBUTION WIDTH 14.1 % (11.6-17.2); WHITE BLOOD COUNT 12.6 TH/MM3 (4.0-11.0)
[2017-02-05 11:36] LABS: ANION GAP 8 MEQ/L (5-15); AST (GOT) 61 U/L (15-37); BICARBONATE 26.5 MEQ/L (21.0-32.0); BLOOD UREA NITROGEN 14 MG/DL (7-18); CHLORIDE 103 MEQ/L (98-107); GLOMERULAR FILTRATION RATE 76 ML/MIN (>89); SODIUM (NA) 137 MEQ/L (136-145)
[2017-02-05 11:45] LABS: ALKALINE PHOSPHATASE 79 U/L (45-117); ALT (GPT) 101 U/L (10-53); TOTAL BILIRUBIN ADULT 0.3 MG/DL (0.2-1.0)
--- NOTE | 2017-02-05 15:25 | EC ---
Study Study Date:02/05/2017 STUDY CONCLUSIONS SUMMARY - Procedure narrative: Transthoracic echocardiography. Image quality was poor. Scanning was performed from the parasternal, apical, and subcostal acoustic windows. - Left ventricle: The cavity size was normal. Wall thickness was normal. Systolic function was normal. The estimated ejection fraction was in the range of 55% to 60%. Wall motion was normal; there were no regional wall motion abnormalities. If LV function is below 40, please consider prescribing an ACEI or ARB or document rationale for non-use. PROCEDURE DATA STUDY STATUS: Elective. Procedure: Transthoracic echocardiography. Image quality was poor. Scanning was performed from the parasternal, apical, and subcostal acoustic windows. Study completion: The patient tolerated the procedure well. Transthoracic echocardiography. M-mode, complete 2D, complete spectral Doppler, and color Doppler. Height: Height: 67in. Weight: Weight: 182.6lb. Body mass index: BMI: 28.7kg/m^2. Body surface area: BSA: 1.95m^2. Patient status: Inpatient. CARDIAC ANATOMY LEFT VENTRICLE: The cavity size was normal. Wall thickness was normal. Systolic function was normal. The estimated ejection fraction was in the range of 55% to 60%. Wall motion was normal; there were no regional wall motion abnormalities. AORTIC VALVE: Trileaflet; normal thickness leaflets. Doppler: Transvalvular velocity was within the normal range. There was no stenosis. No regurgitation. AORTA: Aortic root: The aortic root was normal in size. MITRAL VALVE: Structurally normal valve. Doppler: Transvalvular velocity was within the normal range. There was no evidence for stenosis. No regurgitation. Valve area by pressure half-time: 3.61cm^2. Indexed valve area by pressure half-time: 1.85cm^2/m^2. Peak gradient: 2mm Hg (D). LEFT ATRIUM: The atrium was normal in size. RIGHT VENTRICLE: The cavity size was normal. Wall thickness was normal. PULMONIC VALVE: Doppler: Transvalvular velocity was within the normal range. There was no evidence for stenosis. No regurgitation. TRICUSPID VALVE: Structurally normal valve. Doppler: Transvalvular velocity was within the normal range. No regurgitation. Peak gradient: 16mm Hg (D). PULMONARY ARTERY: The main pulmonary artery was normal-sized. Systolic pressure was within the normal range. RIGHT ATRIUM: The atrium was normal in size. PERICARDIUM: There was no pericardial effusion. SYSTEMIC VEINS: Inferior vena cava: The vessel was normal in size. Patient weight: 182.6lb _Ejection fraction:_ 65-75% _Fractional shortening:_ 32% up to 5Kg 5-11.5Kg 11.6-22.9Kg 23-45Kg 45-57Kg Aortic Root 7-13 <17 13-22 17-27 17-27 LA diam 6-13 <23 24-38 33-47 37-40 RVID 10-17 7-15 7-15 7-18 8-17 LVIDd 12-22 <32 24-38 33-47 37-40 LVPW 2-4 3-6 5-7 6-8 7-8 IVS 2-4 3-6 5-7 6-8 7-8 BASIC MEASUREMENTS ADULT NORMAL Left ventricle Volume, ED, MOD, 1-plane 43 ml Volume, ES, MOD, 1-plane 21 ml Ejection fraction, MOD, 1-plane 51 % Stroke volume, MOD, 1-plane 22 ml Volume index, ED, MOD, 1-plane 22 ml/m^2 Volume index, ES, MOD, 1-plane 11 ml/m^2 Stroke index, MOD, 1-plane 11.3 ml/m^2 DOPPLER MEASUREMENTS ADULT NORMAL Aortic valve Peak velocity, S 126 cm/s Mitral valve Peak E-wave velocity 75 cm/s Peak A-wave velocity 66.1 cm/s Pressure half-time 61 ms Peak gradient, D 2 mm Hg Peak E/A ratio 1.1 Valve area, pressure half-time 3.61 cm^2 Valve area index, pressure half-time 1.85 cm^2/m^2 Tricuspid valve Peak gradient, D 16 mm Hg Maximal inflow velocity 200 cm/s LEGEND: Mean values are shown as u=mean value. Asterisk (*) pat values outside specified normal range. Prepared and signed by Ad Carlin [id number]
--- NOTE | 2017-02-05 19:11 | EKG ---
Date Performed: 02/05/2017 Time Performed: 07:35:06 PTAGE: 51 years EKG: Afib with RVR Anteroseptal infarct - age undetermined Nonspecific ST and T wave abnormaliti es Abnormal ECG PREVIOUS TRACING : 02/05/2017 02.04 Compared to prior tracing no significant change DOCTOR: Shailesh Barajas Interpretating Date/Time 02/05/2017 19:09:28
--- NOTE | 2017-02-05 19:24 | EKG ---
Date Performed: 02/05/2017 Time Performed: 02:04:02 PTAGE: 51 years EKG: ATRIAL FIBRILLATION WITH RAPID VENTRICULAR RESPONSE SEPTAL MYOCARDIAL INFARCTION ABNORMAL E CG PREVIOUS TRACING : 02/05/2017 01.00 Compared to prior tracing no significant change DOCTOR: Shailesh Barajas Interpretating Date/Time 02/05/2017 19:22:58
--- NOTE | 2017-02-05 19:28 | EKG ---
Date Performed: 02/05/2017 Time Performed: 01:00:54 PTAGE: 51 years EKG: ATRIAL FIBRILLATION WITH RAPID VENTRICULAR RESPONSE SEPTAL MYOCARDIAL INFARCTION ABNORMAL E CG INTERPRETATION BASED ON A DEFAULT AGE OF 40 YEARS PREVIOUS TRACING : 01/15/2017 09.16 Compared to prior tracing no significant change DOCTOR: Shailesh Barajas Interpretating Date/Time 02/05/2017 19:27:17
--- NOTE | 2017-02-05 23:16 | RADRPT ---
EXAM DATE/TIME: 02/05/2017 19:51 [facility] COMPARISON: US ABDOMEN - LIVER, March 23, 2016, 11:36. INDICATIONS : Increased lab values. MEDICAL HISTORY : Hypertension. Chronic obstructive pulmonary disease. Emphysema. SURGICAL HISTORY : Tubal ligation. Hand surgery. Dilation and curettage. ENCOUNTER: Initial ACUITY: 1 day PAIN SCORE: 2/10 LOCATION: Abdomen. MEASUREMENTS: LIVER: 16.2 cm length COMMON DUCT: 7 mm RIGHT KIDNEY: 9.5 x 5.5 x 4.8 cm SPLEEN: 10.1 cm length FINDINGS: LIVER: Suspected to be fatty. 2.7 x 3.8 x 2.6 cm mass seen in the left hepatic lobe, probably solid. Normal flow velocity and direction in the main portal vein. COMMON DUCT: No intraluminal mass or stone visualized. GALLBLADDER: Large stone. Gallbladder is contracted. No pericholecystic fluid or wall thickening demonstrated. PANCREAS: Limited visualization of the tail. What is seen of the pancreas within normal limits. RIGHT KIDNEY: No hydronephrosis, stone or mass. SPLEEN: No focal lesion. CONCLUSION: 1. Fatty liver and study suggests sizable solid lesion in the left hepatic lobe. This is apparently n ew. A contrast-enhanced CT or MRI of the abdomen is recommended. 2. Stone in a contracted gallbladder. No evidence of cholecystitis or biliary obstruction. Abhinav Turner MD on February 05, 2017 at 23:11 Board Certified Radiologist. This report was verified electronically.
[2017-02-06] VITALS (20 sets, daily range): BP systolic 103–137; BP diastolic 62–83; PULSE 80–103; RESP 20–21; TEMP 96.5–99; O2SAT 93–100
[2017-02-06] MEDS: LEVOFLOXACIN 750 MG PREMIX INJ 150 ML IV SCH (03:03)
[2017-02-06] MEDS: methylPREDNISolone SOD SUCC 125 MG/2 ML VIAL IV PUSH SCH ×3 (03:04→18:28)
[2017-02-06] MEDS: PROPOFOL 1000 MG/100 ML INJ 100 ML IV SCH ×5 (03:04→23:53)
[2017-02-06] MEDS: SODIUM CHLOR 0.9% 1000 ML INJ 1,000 ML IV SCH ×2 (03:04→07:49)
[2017-02-06] MEDS: RESP: ALBUTEROL 2.5 MG/IPRATROPIUM 0.5 MG NEB (SCH) INH ×5 (03:38→20:49)
[2017-02-06] MEDS: CHLORHEXIDINE GLUCONATE 2 % 1 PACK (2 CLOTHS) TOP SCH (04:00)
[2017-02-06 04:28] LABS: BASOPHIL # 0.1 TH/MM3 (0-0.2); EOSINOPHIL % 0.1 % (0.0-4.0); HEMATOCRIT 40.2 % (35.0-46.0); HEMO FLAGS DIFF FINAL; LYMPH % 4.9 % (9.0-44.0); LYMPHOCYTE # 0.5 TH/MM3 (1.0-4.8); MEAN CELL VOLUME 86.2 FL (80.0-100.0); MEAN CORPUSCULAR HEMOGLOBIN 28.7 PG (27.0-34.0); MEAN CORPUSCULAR HGB CONC 33.3 % (32.0-36.0); MONO % 3.9 % (0.0-8.0); NEUT % 90.1 % (16.0-70.0); PLATELET COUNT 264 TH/MM3 (150-450); RED BLOOD COUNT 4.66 MIL/MM3 (4.00-5.30); RED CELL DISTRIBUTION WIDTH 13.9 % (11.6-17.2)
[2017-02-06] MEDS: INSULIN NovoLIN REGULAR SUPPLEMENTAL SCALE SQ SCH ×3 (05:00→18:00)
[2017-02-06 05:12] LABS: ALT (GPT) 68 U/L (10-53); ANION GAP 9 MEQ/L (5-15); AST (GOT) 19 U/L (15-37); BICARBONATE 29.2 MEQ/L (21.0-32.0); BLOOD UREA NITROGEN 14 MG/DL (7-18); CHLORIDE 102 MEQ/L (98-107); GLOMERULAR FILTRATION RATE 78 ML/MIN (>89); MAGNESIUM 2.2 MG/DL (1.5-2.5); POTASSIUM 4.3 MEQ/L (3.5-5.1); SODIUM (NA) 140 MEQ/L (136-145)
[2017-02-06 05:15] LABS: ALKALINE PHOSPHATASE 65 U/L (45-117); TOTAL BILIRUBIN ADULT 0.3 MG/DL (0.2-1.0)
[2017-02-06] MEDS: HEPARIN SODIUM - SQ 10,000 UNITS/ML VIAL SQ SCH ×2 (07:55→21:39)
[2017-02-06] MEDS: DILTIAZEM HCL 60 MG TAB PO SCH ×4 (07:55→21:38)
[2017-02-06] MEDS: FAMOTIDINE 20 MG TAB PO SCH ×2 (07:55→21:38)
[2017-02-06] MEDS: CHLORHEXIDINE 0.12% (ORAL KIT) 15 ML CUP MT SCH ×2 (07:56→21:41)
[2017-02-06] MEDS: SODIUM CHLORIDE 0.9% FLUSH 5 ML FLUSH IV FLUSH SCH ×2 (07:56→21:39)
[2017-02-06] MEDS ORDERED: SODIUM PHOSPHATE INJ 30 MMOL in SODIUM CHLOR 0.9% 250 ML INJ 240 ML IV PRN (15:30)
[2017-02-06] MEDS ORDERED: POTASSIUM CHLOR 40 MEQ PREMIX 100 ML IV PRN ×2 (15:30)
[2017-02-06] MEDS ORDERED: MAGNESIUM SULFATE INJ 2 GM in SODIUM CHLORIDE 0.9% INJ 96 ML IV PRN (15:30)
[2017-02-06] MEDS ORDERED: MAGNESIUM SULFATE INJ 4 GM in SODIUM CHLORIDE 0.9% INJ 92 ML IV PRN (15:30)
[2017-02-06] MEDS ORDERED: POTASSIUM CHLOR 20 MEQ PREMIX 100 ML IV PRN ×2 (15:30)
[2017-02-06] MEDS ORDERED: POTASSIUM PHOSPHATE INJ 30 MMOL in SODIUM CHLOR 0.9% 250 ML INJ 250 ML IV PRN (15:30)
[2017-02-06] MEDS ORDERED: DEXTROSE 50% IN WATER 50 ML VIAL(D50) IV PUSH PRN (15:30)
[2017-02-06] MEDS ORDERED: POTASSIUM PHOSPHATE MONOBASIC 500 MG TAB PO PRN (15:30)
[2017-02-06] MEDS ORDERED: MAGNESIUM OXIDE 400 MG TAB PO PRN (15:30)
[2017-02-06] MEDS ORDERED: POTASSIUM PHOSPHATE MONOBASIC 500 MG TAB PO/TUBE PRN (15:30)
--- NOTE | 2017-02-06 15:31 | HHI.CCPN ---
Subjective Remarks/Hospital Course Hospital Course: 51 y/o woman discharged 2 days ago after treatment for CO2 exacerbation presents again tonight with same requiring intubation and mechanical ventilation. Subjective: 02/06: difficulty with agitation this morning requiring the addition of fentanyl to propofol for adequate sedation and RASS goal. liver ultrasound yesterday with 3cm mass in left lobe of liver. hypercarbia resolving. Objective Vital Signs Date Time Temp Pulse Resp B/P Pulse Ox O2 Delivery O2 Flow Rate FiO2 02/06/17 15:14 95 40 02/06/17 14:00 85 02/06/17 12:00 97.3 20 121/62 02/05/17 03:08 Ventilator Intake and Output 02/05/17 02/05/17 02/06/17 08:00 16:00 00:00 Intake Total 182 ml 144 ml 1050 ml Output Total 900 ml 650 ml 1650 ml Balance -718 ml -506 ml -600 ml Result Diagram: 02/06/17 0357 02/06/17 0357 Objective Remarks P 90s, irreg, Head: Atraumatic. Neck: Supple, orally intubated. Lungs: improved air entry bilaterally, diffuse wheezes persist. Heart: Irreg Irreg, no m,r. no JVD Abdomen: soft. nontender, nondistended. no guarding. Extremities: Warm, well perfused. 2+ chronic edema Neuro:RASS -1. fc x 4. no focal deficits. A/P Problem List: (1) Hypercapnic respiratory failure ICD Code: J96.92 Status: Acute (2) COPD with acute exacerbation ICD Code: J44.1 Status: Acute (3) Atrial fibrillation with rapid ventricular response ICD Code: I48.91 Status: Acute Assessment and Plan Active Problems: Acute hypercarbic and Hypoxic respiratory failure Left hepatic Liver mass COPD exacerbation Acute protein calorie malnutrition- mild Plan: 1. Mechanical ventilation, prvc mode. decrease resp rate as patient clinically appears to be breath stacking. recheck abg in 1 hr. AM abg. not ready for SBT today given persistent wheezing and ongoing co2 retention, along with agitation. 2. Bronchodilators. 3. Steroids q8h. 4. increase SSI to med scale for steroid induced hyperglycemia. 5. Pepcid. 6. Heparin sq DVT px. 7. Levaquin. 8. increase sedation, fentanyl and propofol RASS goal -2. 9. triple phase CT abd/pelvis to eval liver mass. will likely need liver biopsy at some point when more stable. 10. start jevity 1.5 and consult nutrition for TF goals. 11. ICU electrolyte protocol. 12. d/c mivf once on TFs. clinically euvolemic now. 13. daily labs: cbc, bmp. Overall impression: Remains critically ill with multiple acute medical problems and organ system dysfunction. Acute hypercarbic respiratory failure persists, and without full support at this point would still likely . This patient remains critically ill with one or more organ systems which are or may become a threat to life. I have spent in excess of 38 minutes discontinuously in the care and management of this patient. This time is exclusive of procedures, and includes, but is not limited to, evaluation of the patient, review of the medical record, discussions with family, consultants, nursing staff, or respiratory therapy, and documentation in the medical record. Problem Qualifiers (1) Hypercapnic respiratory failure: Qualified Code: J96.22 - Acute on chronic respiratory failure with hypercapnia Alexandre Garcia MD Feb 06, 2017 15:31
[2017-02-06] MEDS ORDERED: LABETALOL HCL 100 MG/20 ML VIAL IV PUSH PRN (16:00)
[2017-02-06 16:42] LABS: BLOOD GAS CARBOXYHEMOGLOBIN 0.8 % (0-4); BLOOD GAS HCO3 30 mmol/L (22-26); BLOOD GAS METHEMOGLOBIN 1.4 % (0-2); BLOOD GAS O2 HGB SATURATION 93 % (90-100); BLOOD GAS OXYGEN CONTENT 18.2 Vol % (12.0-20.0); BLOOD GAS PCO2 69 mmHg (38-42); BLOOD GAS PO2 84 mmHg (61-120); BLOOD GAS TOTAL HGB 13.9 G/DL (12.0-16.0); CRITICAL VALUE YES; DRAW SITE RT RADIAL; FIO2 40 %; OXYGEN DEVICE VENT; TEMP CORR TO 98.6
[2017-02-06 16:43] LABS: NUMBER OF ARTERIAL PUNCTURES 1; STAT NO; ULNAR PULSE PRESENT; VENT SETTINGS PRVC/15/450/5PEEP
[2017-02-06] MEDS ORDERED: IOHEXOL 350 MG/ML 10 ML VIAL (for RAD DIAG) IV ONE ×2 (17:12→17:26)
--- NOTE | 2017-02-06 18:15 | RADRPT ---
EXAM DATE/TIME: 02/06/2017 17:14 [facility] COMPARISON: CT PULMONARY ANGIOGRAM, January 16, 2016, 12:52. US ABDOMEN - LIVER, February 05, 2017, 19:51. CT PUL MONARY ANGIOGRAM, January 31, 2017, 10:07. INDICATIONS : Evaluate liver mass. IV CONTRAST: 100 cc Omnipaque 350 (iohexol) IV ORAL CONTRAST: No oral contrast ingested. RADIATION DOSE: 14.21 CTDIvol (mGy) MEDICAL HISTORY : Chronic obstructive pulmonary disease. Hypertension. SURGICAL HISTORY : Tubal ligation. ENCOUNTER: Initial ACUITY: 1 day PAIN SCALE: 5/10 LOCATION: Bilateral abdomen. TECHNIQUE: Volumetric scanning of the abdomen and pelvis was performed. Using automated exposure control and ad justment of the mA and/or kV according to patient size, radiation dose was kept as low as reasonably achievable to obtain optimal diagnostic quality images. FINDINGS: Three-phase liver study was done. There is a hypodense solid-appearing mass measuring approximately 3 .0 x 3.7 x 2.3 cm in the central liver. The lesion is directly above the main portal vein and in betw een the middle and left hepatic vein branches. A similar lesion measuring about 19 mm in size is seen inferiorly in the right hepatic lobe. There are a few scattered subcentimeter hypodensities of the l iver that I believe are cysts. Mild intrahepatic biliary distention. Common bile duct is also prominent, measures 14 mm in the harvey hepatis. It tapers fairly normally within the pancreatic head. There is a 12 mm stone in the gallbla dder but I don't see a duct stone. Spleen, pancreas, adrenal glands and kidneys are all normal. No ascites. No lymphadenopathy or mesenteric mass. No obstruction or acute inflammatory changes are s een the gastrointestinal tract. CONCLUSION: 1. Liver masses as above, one centrally in the left hepatic lobe and a slightly smaller one inferiorl y in the right hepatic lobe. These are not typical of cysts, hemangiomas or other definite benign str uctures. Additionally, the left hepatic lobe lesion is not convincingly present on the CT pulmonary a ngiogram done in December of 2015. Malignancy needs to be excluded. The right hepatic lobe lesion may be amenable to percutaneous needle biopsy. 2. Intrahepatic and extrahepatic biliary distention of unclear etiology but I believe not changed fro December 2015.. Still, please correlate clinically and with any laboratory evidence of biliary obst ruction. 3. 12 mm gallstone, probably impacted in the neck. However, no inflammatory changes are seen. Abhinav Turner MD on February 06, 2017 at 18:04 Board Certified Radiologist. This report was verified electronically.
[2017-02-06] MEDS: fentaNYL 2,500 MCG/NS 250 ML IV SCH (21:38)
[2017-02-07] VITALS (18 sets, daily range): BP systolic 99–132; BP diastolic 58–86; PULSE 69–100; RESP 14–20; TEMP 96.6–98; O2SAT 90–96
[2017-02-07] MEDS: methylPREDNISolone SOD SUCC 125 MG/2 ML VIAL IV PUSH SCH ×3 (01:36→17:15)
[2017-02-07] MEDS: CHLORHEXIDINE GLUCONATE 2 % 1 PACK (2 CLOTHS) TOP SCH (03:25)
[2017-02-07] MEDS: LEVOFLOXACIN 750 MG PREMIX INJ 150 ML IV SCH (03:25)
[2017-02-07] MEDS: PROPOFOL 1000 MG/100 ML INJ 100 ML IV SCH ×4 (04:13→21:00)
[2017-02-07 05:37] LABS: HEMATOCRIT 38.4 % (35.0-46.0); MEAN CELL VOLUME 85.8 FL (80.0-100.0); MEAN CORPUSCULAR HEMOGLOBIN 28.7 PG (27.0-34.0); MEAN CORPUSCULAR HGB CONC 33.5 % (32.0-36.0); PLATELET COUNT 258 TH/MM3 (150-450); RED BLOOD COUNT 4.47 MIL/MM3 (4.00-5.30); RED CELL DISTRIBUTION WIDTH 14.3 % (11.6-17.2); REVIEW FLAG FINAL; WHITE BLOOD COUNT 9.1 TH/MM3 (4.0-11.0)
[2017-02-07 05:44] LABS: BLOOD GAS BASE EXCESS 3.1 mmol/L (-2-2); BLOOD GAS HCO3 29 mmol/L (22-26); BLOOD GAS METHEMOGLOBIN 1.1 % (0-2); BLOOD GAS O2 HGB SATURATION 93 % (90-100); BLOOD GAS PCO2 59 mmHg (38-42); BLOOD GAS PO2 79 mmHg (61-120); CRITICAL VALUE YES; OXYGEN DEVICE VENTILATOR; TEMP CORR TO 98.6
[2017-02-07 05:45] LABS: DRAW SITE RT RADIAL; FIO2 40 %; NUMBER OF ARTERIAL PUNCTURES 1; STAT NO; ULNAR PULSE PRESENT; VENT SETTINGS PRVC/AC/
[2017-02-07] MEDS: INSULIN NovoLIN REGULAR SUPPLEMENTAL SCALE SQ SCH ×4 (06:00→17:15)
[2017-02-07 06:08] LABS: BICARBONATE 33.7 MEQ/L (21.0-32.0); POTASSIUM 4.4 MEQ/L (3.5-5.1)
[2017-02-07] MEDS: RESP: ALBUTEROL 2.5 MG/IPRATROPIUM 0.5 MG NEB (SCH) INH ×5 (07:39→23:57)
[2017-02-07] MEDS: FAMOTIDINE 20 MG TAB PO SCH ×2 (08:21→21:37)
[2017-02-07] MEDS: SODIUM CHLORIDE 0.9% FLUSH 5 ML FLUSH IV FLUSH SCH ×2 (08:21→21:37)
[2017-02-07] MEDS: HEPARIN SODIUM - SQ 10,000 UNITS/ML VIAL SQ SCH ×2 (08:21→21:37)
[2017-02-07] MEDS: DILTIAZEM HCL 60 MG TAB PO SCH ×4 (08:21→21:37)
[2017-02-07] MEDS: CHLORHEXIDINE 0.12% (ORAL KIT) 15 ML CUP MT SCH (08:22)
[2017-02-07] MEDS: fentaNYL 2,500 MCG/NS 250 ML IV SCH (12:44)
--- NOTE | 2017-02-07 12:57 | HHI.CCPN ---
Subjective Remarks/Hospital Course Hospital Course: 51 y/o woman discharged 2 days ago after treatment for CO2 exacerbation presents again tonight with same requiring intubation and mechanical ventilation. Subjective: 02/06: difficulty with agitation this morning requiring the addition of fentanyl to propofol for adequate sedation and RASS goal. liver ultrasound yesterday with 3cm mass in left lobe of liver. hypercarbia resolving. 02/07: CT abd/pelvis confirms 3cm solid mass in left lobe liver and smaller mass in right lobe. will plan for CT guided biopsy early next week. Otherwise, more awake. will work towards weaning mechanical ventilation. Objective Vital Signs Date Time Temp Pulse Resp B/P Pulse Ox O2 Delivery O2 Flow Rate FiO2 02/07/17 11:46 92 40 02/07/17 10:00 76 02/07/17 08:00 96.6 20 99/61 02/05/17 03:08 Ventilator Intake and Output 02/06/17 02/06/17 02/07/17 08:00 16:00 00:00 Intake Total 1142 ml 1327 ml 621 ml Output Total 1200 ml 800 ml 430 ml Balance -58 ml 527 ml 191 ml Result Diagram: 02/07/17 0443 02/07/17 0443 Other Results Laboratory Tests Test 02/06/17 02/07/17 16:25 05:17 Blood Gas Puncture Site RT RADIAL RT RADIAL Blood Gas Patient Temperature 98.6 98.6 Blood Gas HCO3 30 mmol/L 29 mmol/L (22-26) (22-26) Blood Gas Base Excess 3.0 mmol/L 3.1 mmol/L (-2-2) (-2-2) Blood Gas Oxygen Saturation 93 % (90-100) 93 % (90-100) Arterial Blood pH 7.25 7.31 (7.380-7.420) (7.380-7.420) Arterial Blood Partial 69 mmHg (38-42) 59 mmHg (38-42) Pressure CO2 Arterial Blood Partial 84 mmHg 79 mmHg Pressure O2 (61-120) (61-120) Arterial Blood Oxygen Content 18.2 Vol % 17.0 Vol % (12.0-20.0) (12.0-20.0) Arterial Blood 0.8 % (0-4) 1.0 % (0-4) Carboxyhemoglobin Arterial Blood Methemoglobin 1.4 % (0-2) 1.1 % (0-2) Blood Gas Hemoglobin 13.9 G/DL 13.0 G/DL (12.0-16.0) (12.0-16.0) Oxygen Delivery Device VENT VENTILATOR Blood Gas Ventilator Setting PRVC/15/450/5PEEP PRVC/AC/ Blood Gas Inspired Oxygen 40 % 40 % Objective Remarks Head: Atraumatic. Neck: Supple, orally intubated. Lungs: improved air entry bilaterally, diffuse wheezes improved. Heart: Irreg Irreg, no m,r. no JVD Abdomen: soft. nontender, nondistended. no guarding. Extremities: Warm, well perfused. 2+ chronic edema Neuro:RASS -1. fc x 4. no focal deficits. A/P Problem List: (1) Hypercapnic respiratory failure ICD Code: J96.92 Status: Acute (2) COPD with acute exacerbation ICD Code: J44.1 Status: Acute (3) Atrial fibrillation with rapid ventricular response ICD Code: I48.91 Status: Acute Assessment and Plan Active Problems: Acute hypercarbic and Hypoxic respiratory failure Left hepatic Liver mass COPD exacerbation Acute protein calorie malnutrition- mild Plan: 1. SBT today. will consider extubation if patient does well. certainly her severe COPD may make it difficult to separate her from mechanical ventilation. 2. Bronchodilators. 3. Steroids q8h. 4. med scale SSI 5. Pepcid. 6. Heparin sq DVT px. 7. Levaquin. 8. CT guided liver biopsy early next week with IR. 9. TF at goal. 10. ICU electrolyte protocol. 11. daily labs: cbc, bmp. Overall impression: 51yF with severe COPD and Type II respiratory failure. clinically improving but may have significant hurdles to successful extubation. Problem Qualifiers (1) Hypercapnic respiratory failure: Qualified Code: J96.22 - Acute on chronic respiratory failure with hypercapnia Alexandre Garcia MD Feb 07, 2017 12:57
[2017-02-07 15:12] LABS: BLOOD GAS CARBOXYHEMOGLOBIN 0.9 % (0-4); BLOOD GAS HCO3 29 mmol/L (22-26); BLOOD GAS METHEMOGLOBIN 0.8 % (0-2); BLOOD GAS O2 HGB SATURATION 87 % (90-100); BLOOD GAS OXYGEN CONTENT 17.5 Vol % (12.0-20.0); BLOOD GAS PCO2 67 mmHg (38-42); BLOOD GAS PO2 65 mmHg (61-120); BLOOD GAS TOTAL HGB 14.3 G/DL (12.0-16.0); TEMP CORR TO 98.6
[2017-02-07 15:13] LABS: CRITICAL VALUE YES; DRAW SITE RT RADIAL; FIO2 40 %; NUMBER OF ARTERIAL PUNCTURES 1; OXYGEN DEVICE VENT; STAT NO; ULNAR PULSE PRESENT
[2017-02-08] VITALS (17 sets, daily range): BP systolic 119–154; BP diastolic 71–83; PULSE 79–101; RESP 12–20; TEMP 98–98.9; O2SAT 89–99
[2017-02-08] MEDS: methylPREDNISolone SOD SUCC 125 MG/2 ML VIAL IV PUSH SCH ×4 (00:18→23:51)
[2017-02-08] MEDS: INSULIN NovoLIN REGULAR SUPPLEMENTAL SCALE SQ SCH ×5 (00:18→23:51)
[2017-02-08] MEDS: PROPOFOL 1000 MG/100 ML INJ 100 ML IV SCH ×2 (01:27→06:56)
[2017-02-08] MEDS: RESP: ALBUTEROL 2.5 MG/IPRATROPIUM 0.5 MG NEB (SCH) INH ×6 (03:58→23:57)
[2017-02-08] MEDS: CHLORHEXIDINE 0.12% (ORAL KIT) 15 ML CUP MT SCH ×3 (04:11→20:00)
[2017-02-08] MEDS: CHLORHEXIDINE GLUCONATE 2 % 1 PACK (2 CLOTHS) TOP SCH (04:11)
[2017-02-08] MEDS: LEVOFLOXACIN 750 MG PREMIX INJ 150 ML IV SCH (04:11)
[2017-02-08 05:51] LABS: HEMATOCRIT 40.3 % (35.0-46.0); MEAN CELL VOLUME 86.9 FL (80.0-100.0); MEAN CORPUSCULAR HEMOGLOBIN 28.9 PG (27.0-34.0); MEAN CORPUSCULAR HGB CONC 33.3 % (32.0-36.0); PLATELET COUNT 268 TH/MM3 (150-450); RED BLOOD COUNT 4.63 MIL/MM3 (4.00-5.30); RED CELL DISTRIBUTION WIDTH 14.4 % (11.6-17.2); REVIEW FLAG FINAL; WHITE BLOOD COUNT 12.7 TH/MM3 (4.0-11.0)
[2017-02-08 06:17] LABS: BICARBONATE 33.3 MEQ/L (21.0-32.0); POTASSIUM 4.8 MEQ/L (3.5-5.1)
[2017-02-08] MEDS: DILTIAZEM HCL 60 MG TAB PO SCH ×4 (09:18→21:07)
[2017-02-08] MEDS: HEPARIN SODIUM - SQ 10,000 UNITS/ML VIAL SQ SCH ×2 (09:18→21:07)
[2017-02-08] MEDS: FAMOTIDINE 20 MG TAB PO SCH ×2 (09:18→21:07)
[2017-02-08] MEDS: SODIUM CHLORIDE 0.9% FLUSH 5 ML FLUSH IV FLUSH SCH ×2 (09:18→21:08)
[2017-02-08] MEDS: fentaNYL 2,500 MCG/NS 250 ML IV SCH (13:00)
[2017-02-08 16:15] LABS: BLOOD GAS BASE EXCESS 8.9 mmol/L (-2-2); BLOOD GAS HCO3 35 mmol/L (22-26); BLOOD GAS METHEMOGLOBIN 1.1 % (0-2); BLOOD GAS O2 HGB SATURATION 96 % (90-100); BLOOD GAS OXYGEN CONTENT 17.9 Vol % (12.0-20.0); BLOOD GAS PCO2 66 mmHg (38-42); BLOOD GAS PO2 103 mmHg (61-120); BLOOD GAS TOTAL HGB 13.2 G/DL (12.0-16.0); CRITICAL VALUE YES; OXYGEN DEVICE VENTILATOR; TEMP CORR TO 98.6
[2017-02-08 16:16] LABS: DRAW SITE RT RADIAL; FIO2 50 %; NUMBER OF ARTERIAL PUNCTURES 1; STAT NO; ULNAR PULSE PRESENT; VENT SETTINGS CPAP+5/PS+10
--- NOTE | 2017-02-08 16:43 | HHI.CCPN ---
Subjective Remarks/Hospital Course Hospital Course: 51 y/o woman discharged 2 days ago after treatment for CO2 exacerbation presents again tonight with same requiring intubation and mechanical ventilation. Subjective: 02/06: difficulty with agitation this morning requiring the addition of fentanyl to propofol for adequate sedation and RASS goal. liver ultrasound yesterday with 3cm mass in left lobe of liver. hypercarbia resolving. 02/07: CT abd/pelvis confirms 3cm solid mass in left lobe liver and smaller mass in right lobe. will plan for CT guided biopsy early next week. Otherwise, more awake. will work towards weaning mechanical ventilation. 02/08: much more awake. talked with radiology, will wait until patient is extubated to pursue biopsy of liver lesion. passed SBT and will pursue trial of extubation. Objective Vital Signs Date Time Temp Pulse Resp B/P Pulse Ox O2 Delivery O2 Flow Rate FiO2 02/08/17 16:24 92 Nasal Cannula 6 02/08/17 16:00 96 02/08/17 14:59 50 02/08/17 12:00 98.4 20 129/76 Intake and Output 02/07/17 02/07/17 02/08/17 08:00 16:00 00:00 Intake Total 676 ml 881 ml 532 ml Output Total 375 ml 400 ml 300 ml Balance 301 ml 481 ml 232 ml Result Diagram: 02/08/17 0501 02/08/17 0501 Other Results Laboratory Tests Test 02/08/17 16:07 Blood Gas Puncture Site RT RADIAL Blood Gas Patient Temperature 98.6 Blood Gas HCO3 35 mmol/L (22-26) Blood Gas Base Excess 8.9 mmol/L (-2-2) Blood Gas Oxygen Saturation 96 % (90-100) Arterial Blood pH 7.34 (7.380-7.420) Arterial Blood Partial 66 mmHg (38-42) Pressure CO2 Arterial Blood Partial 103 mmHg Pressure O2 (61-120) Arterial Blood Oxygen Content 17.9 Vol % (12.0-20.0) Arterial Blood 1.0 % (0-4) Carboxyhemoglobin Arterial Blood Methemoglobin 1.1 % (0-2) Blood Gas Hemoglobin 13.2 G/DL (12.0-16.0) Oxygen Delivery Device VENTILATOR Blood Gas Ventilator Setting CPAP+5/PS+10 Blood Gas Inspired Oxygen 50 % Objective Remarks Head: Atraumatic. Neck: Supple, orally intubated. Lungs: improved air entry bilaterally, diffuse wheezes improved. Heart: Irreg Irreg, no m,r. no JVD Abdomen: soft. nontender, nondistended. no guarding. Extremities: Warm, well perfused. 2+ chronic edema Neuro:RASS 0. fc x 4. no focal deficits. A/P Problem List: (1) Hypercapnic respiratory failure ICD Code: J96.92 Status: Acute (2) COPD with acute exacerbation ICD Code: J44.1 Status: Acute (3) Atrial fibrillation with rapid ventricular response ICD Code: I48.91 Status: Acute Assessment and Plan Active Problems: Acute hypercarbic and Hypoxic respiratory failure Left hepatic Liver mass COPD exacerbation Acute protein calorie malnutrition- mild Plan: 1. pursue extubation. 2. nursing bedside swallow assessment, will advance diet if she passes 3. aggressive pulmonary toilet 4. OOB to chair with assist, PT. 5. Bronchodilators. 6. Steroids q8h. 7. med scale SSI 8. Pepcid. 9. Heparin sq DVT px. 10. Levaquin. 11. CT guided liver biopsy later in the week if she remains stable and extubated. 12. ICU electrolyte protocol. 13. daily labs: cbc, bmp. Dispo: if she does well today and tonight, could consider transfer to floor with hospitalist following tomorrow. Overall impression: 51yF with severe COPD and Type II respiratory failure. clinically improving. Problem Qualifiers (1) Hypercapnic respiratory failure: Qualified Code: J96.22 - Acute on chronic respiratory failure with hypercapnia Alexandre Garcia MD Feb 08, 2017 16:43
[2017-02-09] VITALS (14 sets, daily range): BP systolic 136–170; BP diastolic 79–94; PULSE 96–108; RESP 15–30; TEMP 97.8–98.6; O2SAT 90–95
[2017-02-09] MEDS: LEVOFLOXACIN 750 MG PREMIX INJ 150 ML IV SCH (03:46)
[2017-02-09] MEDS: RESP: ALBUTEROL 2.5 MG/IPRATROPIUM 0.5 MG NEB (SCH) INH ×6 (03:53→23:49)
[2017-02-09] MEDS: CHLORHEXIDINE GLUCONATE 2 % 1 PACK (2 CLOTHS) TOP SCH (04:00)
[2017-02-09] MEDS: INSULIN NovoLIN REGULAR SUPPLEMENTAL SCALE SQ SCH ×3 (05:52→18:04)
[2017-02-09 05:57] LABS: HEMATOCRIT 40.7 % (35.0-46.0); MEAN CORPUSCULAR HEMOGLOBIN 28.4 PG (27.0-34.0); MEAN CORPUSCULAR HGB CONC 32.6 % (32.0-36.0); PLATELET COUNT 256 TH/MM3 (150-450); RED BLOOD COUNT 4.67 MIL/MM3 (4.00-5.30); RED CELL DISTRIBUTION WIDTH 14.2 % (11.6-17.2); REVIEW FLAG FINAL; WHITE BLOOD COUNT 11.3 TH/MM3 (4.0-11.0)
[2017-02-09 06:15] LABS: BICARBONATE 40.1 MEQ/L (21.0-32.0); POTASSIUM 4.4 MEQ/L (3.5-5.1)
[2017-02-09] MEDS: CHLORHEXIDINE 0.12% (ORAL KIT) 15 ML CUP MT SCH ×2 (08:00→20:00)
[2017-02-09] MEDS: methylPREDNISolone SOD SUCC 125 MG/2 ML VIAL IV PUSH SCH (08:15)
[2017-02-09] MEDS: DILTIAZEM HCL 60 MG TAB PO SCH ×4 (08:16→21:34)
[2017-02-09] MEDS: HEPARIN SODIUM - SQ 10,000 UNITS/ML VIAL SQ SCH (08:16)
[2017-02-09] MEDS: SODIUM CHLORIDE 0.9% FLUSH 5 ML FLUSH IV FLUSH SCH ×2 (08:16→21:34)
[2017-02-09] MEDS: FAMOTIDINE 20 MG TAB PO SCH ×2 (08:20→21:34)
[2017-02-09] MEDS ORDERED: ZOLO25TA PO (14:55)
--- NOTE | 2017-02-09 16:07 | HHI.PR ---
Subjective Remarks fu respiratory failure, copd exacerbation, liver mass, afib w rvr Patient denies cp, states breathing is better denies fevers/chills denies cough states feels very depressed Objective Vitals Vital Signs Date Time Temp Pulse Resp B/P Pulse Ox O2 Delivery O2 Flow Rate FiO2 02/09/17 14:00 100 02/09/17 12:00 100 02/09/17 12:00 98.0 105 18 136/84 90 02/09/17 10:00 100 02/09/17 08:16 93 Nasal Cannula 3.00 02/09/17 08:00 97.8 104 15 161/94 93 02/09/17 08:00 104 02/09/17 06:00 96 02/09/17 04:00 101 02/09/17 04:00 98.2 108 27 170/79 93 02/09/17 02:00 96 02/09/17 00:00 100 02/09/17 00:00 98.6 101 21 144/83 93 02/08/17 22:00 95 02/08/17 20:00 98.9 101 18 154/82 94 02/08/17 20:00 101 02/08/17 19:41 89 Nasal Cannula 4.00 02/08/17 18:00 101 02/08/17 16:24 92 Nasal Cannula 6 02/08/17 16:00 50 02/08/17 16:00 98.0 96 12 136/83 95 02/08/17 16:00 96 I/O 02/08/17 02/08/17 02/08/17 02/09/17 02/09/17 02/09/17 07:00 15:00 23:00 07:00 15:00 23:00 Intake Total 597 ml 657 ml 221 ml 463 ml 402 ml Output Total 500 ml 575 ml 700 ml 850 ml 300 ml Balance 97 ml 82 ml -479 ml -387 ml 102 ml Intake Oral 200 ml 250 ml 360 ml IV Total 217 ml 182 ml 21 ml 213 ml 42 ml Tube Feeding 380 ml 475 ml 0 ml Output Urine Total 500 ml 575 ml 700 ml 850 ml 300 ml # Bowel Movements 0 0 0 0 0 Result Diagram: 02/09/17 0531 02/09/17 0531 Imaging Last Impressions Abdomen/Pelvis CT 02/06/17 0000 Signed Impressions: Service Date/Time: Monday, February 06, 2017 17:14 - CONCLUSION: 1. Liver masses as above, one centrally in the left hepatic lobe and a slightly smaller one inferiorly in the right hepatic lobe. These are not typical of cysts, hemangiomas or other definite benign structures. Additionally, the left hepatic lobe lesion is not convincingly present on the CT pulmonary angiogram done in December of 2015. Malignancy needs to be excluded. The right hepatic lobe lesion may be amenable to percutaneous needle biopsy. 2. Intrahepatic and extrahepatic biliary distention of unclear etiology but I believe not changed from December 2015.. Still, please correlate clinically and with any laboratory evidence of biliary obstruction. 3. 12 mm gallstone, probably impacted in the neck. However , no inflammatory changes are seen. Abhinav Turner MD Chest X-Ray 02/05/17 0057 Signed Impressions: Service Date/Time: Sunday, February 05, 2017 01:19 - CONCLUSION: 1. ET tube in good position. 2. Interval resolution of coarse bilateral lower lung interstitial infiltrates. Roberth Amaro MD Liver Ultrasound 02/05/17 0000 Signed Impressions: Service Date/Time: Sunday, February 05, 2017 19:51 - CONCLUSION: 1. Fatty liver and study suggests sizable solid lesion in the left hepatic lobe. This is apparently new. A contrast-enhanced CT or MRI of the abdomen is recommended. 2. Stone in a contracted gallbladder. No evidence of cholecystitis or biliary obstruction. Abhinav Turner MD Objective Remarks GENERAL: SKIN: Warm and dry. HEAD: Atraumatic. Normocephalic. EYES: Pupils equal and round. No scleral icterus. No injection or drainage. ENT: No nasal bleeding or discharge. Mucous membranes pink and moist. NECK: Trachea midline. No JVD. CARDIOVASCULAR: Regular rate and rhythm. RESPIRATORY: No accessory muscle use. Clear to auscultation. Breath sounds equal bilaterally but diminished GASTROINTESTINAL: Abdomen soft, non-tender, nondistended. Hepatic and splenic margins not palpable. MUSCULOSKELETAL: Extremities without clubbing, cyanosis, or edema. No obvious deformities. NEUROLOGICAL: Awake and alert. No obvious cranial nerve deficits. Motor grossly within normal limits. Five out of 5 muscle strength in the arms and legs. Normal speech. PSYCHIATRIC: Appropriate mood and affect; insight and judgment normal. Medications and IVs Current Medications Medications (Trade) Dose Ordered Sig/Rossana Route Start Time Stop Time Status Last Admin Chlorhexidine Gluconate 15 ml 15 ml BID@08,20 MT 02/05/17 08:00 02/08/17 09:17 (Diprivan 1000 Mg/100ml Inj) 100 ml @ 0 mls/hr TITRATE IV 02/05/17 02:30 02/08/17 06:56 (NS Flush) 2 ml UNSCH PRN IV FLUSH 02/05/17 02:45 (NS Flush) 2 ml BID IV FLUSH 02/05/17 09:00 02/09/17 08:16 (Tylenol) 650 mg Q6H PRN PO 02/05/17 02:45 (Pepcid) 20 mg Q12HR PO 02/05/17 09:00 02/09/17 08:20 (Zofran Inj) 4 mg Q6H PRN IV 02/05/17 02:45 (Heparin Inj) 5,000 units Q12HR SQ 02/05/17 09:00 02/09/17 08:16 Miscellaneous Information 1 Q361D XX 02/05/17 02:45 (Chlorhexidine 2% Cloth) 3 pack Taper DAILY@04 TOP 02/05/17 04:00 02/01/18 03:59 02/09/17 04:00 Chlorhexidine Gluconate 3 pack 3 pack UNSCH PRN TOP 02/05/17 02:45 (Levaquin 750 Mg Premix Inj) 150 ml @ 100 mls/hr Q24H IV 02/05/17 03:00 02/09/17 03:46 (SoluMEDROL INJ) 60 mg Q8H IV PUSH 02/05/17 09:00 02/09/17 08:15 (Cardizem) 60 mg QID PO 02/05/17 09:00 02/09/17 12:33 (D50w (Vial) Inj) 25 ml UNSCH PRN IV PUSH 02/05/17 10:00 (Glucagon Inj) 1 mg UNSCH PRN OTHER 02/05/17 10:00 (NovoLIN R SUPPLEMENTAL SCALE) 1 Q6HR SQ 02/06/17 18:00 02/09/17 12:40 Magnesium Oxide 800 mg 800 mg UNSCH PRN PO 02/06/17 15:30 Magnesium Sulfate 4 gm/Sodium Chloride 100 ml @ 50 mls/hr UNSCH PRN IV 02/06/17 15:30 Magnesium Sulfate 2 gm/Sodium Chloride 100 ml @ 50 mls/hr UNSCH PRN IV 02/06/17 15:30 Potassium Chloride 100 ml @ 50 mls/hr Q2H PRN IV 02/06/17 15:30 Potassium Chloride 100 ml @ 50 mls/hr Q2H PRN IV 02/06/17 15:30 Potassium Chloride 100 ml @ 50 mls/hr Q2H PRN IV 02/06/17 15:30 (KCl 40 Meq Premix Inj) 100 ml @ 25 mls/hr UNSCH PRN IV 02/06/17 15:30 (K-Phos) 2,000 mg Q4H PRN PO 02/06/17 15:30 Potassium Phosphate 2000 mg 2,000 mg UNSCH PRN PO/TUBE 02/06/17 15:30 Potassium Phosphate 30 mmol/ Sodium Chloride 260 ml @ 42 mls/hr UNSCH PRN IV 02/06/17 15:30 (Sodium Phosphate Inj/NS 250 ml Inj) 250 ml @ 42 mls/hr UNSCH PRN IV 02/06/17 15:30 (Trandate Inj) 20 mg Q2H PRN IV PUSH 02/06/17 16:00 Urinary Catheter: Yes Assessment to: Remove Vascular Central Line Catheter: No A/P Problem List: (1) COPD with acute exacerbation ICD Code: J44.1 Status: Acute Plan: Patient admitted to the intensive care unit intubated and mechanically ventilated and placed under the care of accounts payable processor. Patient has been extubated on 02/08, doing well with good oxygen saturation currently on 3 L nasal cannula. Continue with bronchodilators, IV Levaquin, start steroid taper - decrease solumedrol IV to 40 mg IV every 8 hours (2) Hypercapnic respiratory failure ICD Code: J96.92 Status: Resolved Plan: Status post intubation and mechanical ventilation. Multiple ABGs obtained her hospitalization. Last one obtained on February 08 showed a pH of 7.34, PCO2 of 66 and a PO2 of 103. Continue with supplemental oxygen to keep oxygen saturation between 88-92%. (3) Liver mass ICD Code: R16.0 Status: Acute Plan: Ultrasound obtained on 02/05/17 showed a fatty liver and study suggests a sizable solid lesion in left hepatic lobe. Which is apparently new. Stone in a contracted gallbladder. No evidence of cholecystitis or biliary obstruction. Abdominal CT scan obtained on 02/06/17 showed liver masses, one centrally in the left hepatic lobe and slightly smaller one inferiorly in the right hepatic lobe. As per CT scan report these lesions were not present on a CT pulmonary angiogram done in December 2015. Malignancy needs to be excluded. The patient is for CT-guided liver biopsy today. (4) Moderate protein malnutrition ICD Code: E44.0 Status: Acute Plan: Patient with low albumin 2.6. Continue to monitor. (5) Atrial fibrillation and flutter ICD Code: I48.91 Status: Acute Plan: Right controlled. Initially the patient presented with atrial fibrillation with RVR. EKG on admission on 02/05/17 at 2:04 AM showed atrial fibrillation with rapid ventricular response at a ventricular rate of 1 43 bpm, no ST-T changes suggestive of active ischemia at the time. Troponin was obtained and negative. I will check TSH, continue to monitor on telemetry, check a repeat troponin. Continue Cardizem by mouth 60 mg 4 times a day. (6) Depression ICD Code: F32.9 Status: Acute Plan: Patient states she was on Zoloft long time ago. states feels depressed - consult psychiatry. (7) Hyperglycemia ICD Code: R73.9 Status: Acute Plan: Patient denies h/o diabetes - Will check hemoglobin A1C and will place on SSI with insulin Novolog and monitor accuchecks. Assessment and Plan GI prophylaxis: The patient is currently on famotidine. Continue to DVT prophylaxis: SCDs, heparin subcutaneously. Discharge Planning ok to transfer to the medical floor. Problem Qualifiers (1) Hypercapnic respiratory failure: Qualified Code: J96.22 - Acute on chronic respiratory failure with hypercapnia (2) Depression: Qualified Code: F32.9 - Depression, unspecified depression type Mervin Russ MD Feb 09, 2017 16:07
[2017-02-09] MEDS ORDERED: DEXTROSE 50% IN WATER 50 ML VIAL(D50) IV PUSH PRN (16:30)
[2017-02-09] MEDS: methylPREDNISolone SOD SUCC 40 MG/1 ML VIAL IV PUSH SCH (21:34)
[2017-02-09] MEDS ORDERED: GADODIAMIDE PF 287 MG/ML 5 ML VIAL (for RAD MRI) IV ONE (21:48)
--- NOTE | 2017-02-09 22:11 | RADRPT ---
EXAM DATE/TIME: 02/09/2017 20:22 [facility] COMPARISON: CT PULMONARY ANGIOGRAM, January 31, 2017, 10:07. CT PULMONARY ANGIOGRAM, January 16, 2016, 12:52. CT ABDOMEN & PELVIS W & W/O CONTRAST, February 06, 2017, 17:14. INDICATIONS : Liver masses. 1 CONTRAST: 17 cc Omniscan (gadodiamide) IV MEDICAL HISTORY : Chronic obstructive pulmonary disease. A-fib. SURGICAL HISTORY : Tubal ligation. Hand. ENCOUNTER: Subsequent ACUITY: 4-6 days PAIN SCORE: 5/10 LOCATION: abdomen TECHNIQUE: Multiplanar, multisequence magnetic resonance imaging of the abdomen was performed without and with i ntravenous contrast. FINDINGS: LIVER: Normal size with normal signal intensity. 2 hepatic masses are again identified. The larger is locat ed in segment 8 measures approximately 3.5 x 2.9 cm in diameter. A smaller is located in the lateral inferior right lobe of liver measures 1.5 x 2.1 cm. These are similar in signal characteristics and d emonstrate high signal on the T2-weighted sequences and low signal on the T1-weighted sequences. Afte r contrast administration there is ringlike enhancement surrounding the smaller lesion and mild enhan cement surrounding the larger region with no fill-in on the delayed or equilibrium images. A small cy st is incidentally noted as well. Portal vein is within normal limits. BILIARY: The gallbladder is normal in size and wall thickness with no filling defects. There is prominence of the common bile duct measuring up to close to 1 cm. SPLEEN: Within normal limits. PANCREAS: Within normal limits. ADRENALS: Within normal limits. KIDNEYS: Normal size and signal intensity. There is no hydronephrosis or mass. OTHER: Aorta is nonaneurysmal. There is no lymphadenopathy. CONCLUSION: 1. 2 hepatic masses of concern for metastatic disease especially in light of the mediastinal and emily r adenopathy. The lesions also appear new from the prior study. 2. Dilatation the common bile duct with no evidence of cholelithiasis or filling defect. Paul Green MD on February 09, 2017 at 21:55 Board Certified Radiologist. This report was verified electronically.
[2017-02-10] VITALS (21 sets, daily range): BP systolic 117–170; BP diastolic 67–92; PULSE 89–107; RESP 15–25; TEMP 97.8–98.6; O2SAT 90–98
[2017-02-10] MEDS: LEVOFLOXACIN 750 MG PREMIX INJ 150 ML IV SCH (02:22)
[2017-02-10] MEDS: CHLORHEXIDINE GLUCONATE 2 % 1 PACK (2 CLOTHS) TOP SCH (02:23)
[2017-02-10] MEDS: RESP: ALBUTEROL 2.5 MG/IPRATROPIUM 0.5 MG NEB (SCH) INH ×5 (03:03→19:21)
[2017-02-10] MEDS: INSULIN NovoLIN REGULAR SUPPLEMENTAL SCALE SQ SCH ×5 (06:00→23:23)
[2017-02-10 06:13] LABS: AUTOMATED NEUTROPHIL # 7.4 TH/MM3 (1.8-7.7); BASOPHIL % 0.3 % (0.0-2.0); HEMATOCRIT 40.5 % (35.0-46.0); LYMPH % 5.4 % (9.0-44.0); LYMPHOCYTE # 0.4 TH/MM3 (1.0-4.8); MEAN CELL VOLUME 85.9 FL (80.0-100.0); MEAN CORPUSCULAR HEMOGLOBIN 28.8 PG (27.0-34.0); MEAN CORPUSCULAR HGB CONC 33.5 % (32.0-36.0); MONO % 4.1 % (0.0-8.0); NEUT % 90.2 % (16.0-70.0); PLATELET COUNT 227 TH/MM3 (150-450); RED BLOOD COUNT 4.71 MIL/MM3 (4.00-5.30); RED CELL DISTRIBUTION WIDTH 13.9 % (11.6-17.2); WHITE BLOOD COUNT 8.2 TH/MM3 (4.0-11.0)
[2017-02-10 06:19] LABS: HEMO FLAGS AUTO DIFF
[2017-02-10 06:52] LABS: ALKALINE PHOSPHATASE 62 U/L (45-117); ALT (GPT) 60 U/L (10-53); ANION GAP 6 MEQ/L (5-15); AST (GOT) 17 U/L (15-37); BICARBONATE 36.9 MEQ/L (21.0-32.0); BLOOD UREA NITROGEN 17 MG/DL (7-18); CHLORIDE 97 MEQ/L (98-107); GLOMERULAR FILTRATION RATE 124 ML/MIN (>89); HDL CHOLESTEROL 50.5 MG/DL (40.0-60.0); LDL CHOLESTEROL 165 MG/DL (0-99); MAGNESIUM 2.3 MG/DL (1.5-2.5); POTASSIUM 3.9 MEQ/L (3.5-5.1); SODIUM (NA) 140 MEQ/L (136-145); TOTAL BILIRUBIN ADULT 0.2 MG/DL (0.2-1.0)
[2017-02-10] MEDS: CHLORHEXIDINE 0.12% (ORAL KIT) 15 ML CUP MT SCH ×2 (08:00→20:00)
[2017-02-10] MEDS: FAMOTIDINE 20 MG TAB PO SCH ×2 (08:44→20:48)
[2017-02-10] MEDS: SODIUM CHLORIDE 0.9% FLUSH 5 ML FLUSH IV FLUSH SCH ×2 (08:45→20:47)
[2017-02-10] MEDS: DILTIAZEM HCL 60 MG TAB PO SCH ×4 (08:45→20:47)
[2017-02-10] MEDS: methylPREDNISolone SOD SUCC 40 MG/1 ML VIAL IV PUSH SCH ×2 (08:45→20:46)
[2017-02-10 09:00] LABS: SCAN/DIFF AUTO DIFF CONFIRMED
--- NOTE | 2017-02-10 09:53 | HHI.PR ---
Subjective Remarks breathing better denies cp denies fevers or chills SBP elevated in the 160's, rest of vital signs stable sating well on 3 liters nc Objective Vitals Vital Signs Date Time Temp Pulse Resp B/P Pulse Ox O2 Delivery O2 Flow Rate FiO2 02/10/17 07:54 96 Nasal Cannula 3.00 02/10/17 06:00 92 02/10/17 04:00 98.3 100 18 147/82 95 02/10/17 04:00 101 02/10/17 02:00 97 02/10/17 00:11 93 Nasal Cannula 5.00 02/10/17 00:00 101 02/10/17 00:00 98.6 101 19 170/92 94 02/09/17 22:00 99 02/09/17 20:00 98 02/09/17 20:00 98.3 98 18 166/91 94 02/09/17 19:33 95 Nasal Cannula 2.00 02/09/17 18:00 106 02/09/17 16:00 108 02/09/17 16:00 98.2 108 30 154/83 91 02/09/17 14:00 100 02/09/17 12:00 100 02/09/17 12:00 98.0 105 18 136/84 90 02/09/17 10:00 100 I/O 02/09/17 02/09/17 02/09/17 02/10/17 02/10/17 02/10/17 07:00 15:00 23:00 07:00 15:00 23:00 Intake Total 463 ml 402 ml 350 ml 513 ml Output Total 850 ml 300 ml 2450 ml 650 ml Balance -387 ml 102 ml -2100 ml -137 ml Intake Oral 250 ml 360 ml 350 ml 350 ml IV Total 213 ml 42 ml 0 ml 163 ml Tube Feeding 0 ml Output Urine Total 850 ml 300 ml 2450 ml 650 ml # Bowel Movements 0 0 0 0 Result Diagram: 02/10/17 0540 02/10/17 0540 Imaging Last Impressions Abdomen MRI 02/09/17 0000 Signed Impressions: Service Date/Time: Thursday, February 09, 2017 20:22 - CONCLUSION: 1. 2 hepatic masses of concern for metastatic disease especially in light of the mediastinal and hilar adenopathy. The lesions also appear new from the prior study. 2. Dilatation the common bile duct with no evidence of cholelithiasis or filling defect. Paul Green MD Abdomen/Pelvis CT 02/06/17 0000 Signed Impressions: Service Date/Time: Monday, February 06, 2017 17:14 - CONCLUSION: 1. Liver masses as above, one centrally in the left hepatic lobe and a slightly smaller one inferiorly in the right hepatic lobe. These are not typical of cysts, hemangiomas or other definite benign structures. Additionally, the left hepatic lobe lesion is not convincingly present on the CT pulmonary angiogram done in December of 2015. Malignancy needs to be excluded. The right hepatic lobe lesion may be amenable to percutaneous needle biopsy. 2. Intrahepatic and extrahepatic biliary distention of unclear etiology but I believe not changed from December 2015.. Still, please correlate clinically and with any laboratory evidence of biliary obstruction. 3. 12 mm gallstone, probably impacted in the neck. However , no inflammatory changes are seen. Abhinav Turner MD Chest X-Ray 02/05/17 0057 Signed Impressions: Service Date/Time: Sunday, February 05, 2017 01:19 - CONCLUSION: 1. ET tube in good position. 2. Interval resolution of coarse bilateral lower lung interstitial infiltrates. Roberth Amaro MD Liver Ultrasound 02/05/17 0000 Signed Impressions: Service Date/Time: Sunday, February 05, 2017 19:51 - CONCLUSION: 1. Fatty liver and study suggests sizable solid lesion in the left hepatic lobe. This is apparently new. A contrast-enhanced CT or MRI of the abdomen is recommended. 2. Stone in a contracted gallbladder. No evidence of cholecystitis or biliary obstruction. Abhinav Turner MD Objective Remarks GENERAL: SKIN: Warm and dry. HEAD: Atraumatic. Normocephalic. EYES: Pupils equal and round. No scleral icterus. No injection or drainage. ENT: No nasal bleeding or discharge. Mucous membranes pink and moist. NECK: Trachea midline. No JVD. CARDIOVASCULAR: Regular rate and rhythm. RESPIRATORY: No accessory muscle use. Clear to auscultation. Breath sounds equal bilaterally but diminished GASTROINTESTINAL: Abdomen soft, non-tender, nondistended. Hepatic and splenic margins not palpable. MUSCULOSKELETAL: Extremities without clubbing, cyanosis, or edema. No obvious deformities. NEUROLOGICAL: Awake and alert. No obvious cranial nerve deficits. Motor grossly within normal limits. Five out of 5 muscle strength in the arms and legs. Normal speech. PSYCHIATRIC: Appropriate mood and affect; insight and judgment normal. Procedures Mechanical intubation and ventilation sp extubation Medications and IVs Current Medications Medications (Trade) Dose Ordered Sig/Rossana Route Start Time Stop Time Status Last Admin Chlorhexidine Gluconate 15 ml 15 ml BID@08,20 MT 02/05/17 08:00 02/08/17 09:17 (Diprivan 1000 Mg/100ml Inj) 100 ml @ 0 mls/hr TITRATE IV 02/05/17 02:30 02/08/17 06:56 (NS Flush) 2 ml UNSCH PRN IV FLUSH 02/05/17 02:45 (NS Flush) 2 ml BID IV FLUSH 02/05/17 09:00 02/09/17 21:34 (Tylenol) 650 mg Q6H PRN PO 02/05/17 02:45 (Pepcid) 20 mg Q12HR PO 02/05/17 09:00 02/10/17 08:44 (Zofran Inj) 4 mg Q6H PRN IV 02/05/17 02:45 (Heparin Inj) 5,000 units Q12HR SQ 02/05/17 09:00 Hold 02/09/17 08:16 Miscellaneous Information 1 Q361D XX 02/05/17 02:45 (Chlorhexidine 2% Cloth) Taper DAILY@04 TOP 02/05/17 04:00 02/01/18 03:59 02/09/17 04:00 Chlorhexidine Gluconate 3 pack 3 pack UNSCH PRN TOP 02/05/17 02:45 (Levaquin 750 Mg Premix Inj) 150 ml @ 100 mls/hr Q24H IV 02/05/17 03:00 02/10/17 02:22 (Cardizem) 60 mg QID PO 02/05/17 09:00 02/10/17 08:45 (Glucagon Inj) 1 mg UNSCH PRN OTHER 02/05/17 10:00 (NovoLIN R SUPPLEMENTAL SCALE) 1 Q6HR SQ 02/06/17 18:00 02/09/17 18:04 Magnesium Oxide 800 mg 800 mg UNSCH PRN PO 02/06/17 15:30 Magnesium Sulfate 4 gm/Sodium Chloride 100 ml @ 50 mls/hr UNSCH PRN IV 02/06/17 15:30 Magnesium Sulfate 2 gm/Sodium Chloride 100 ml @ 50 mls/hr UNSCH PRN IV 02/06/17 15:30 Potassium Chloride 100 ml @ 50 mls/hr Q2H PRN IV 02/06/17 15:30 Potassium Chloride 100 ml @ 50 mls/hr Q2H PRN IV 02/06/17 15:30 Potassium Chloride 100 ml @ 50 mls/hr Q2H PRN IV 02/06/17 15:30 (KCl 40 Meq Premix Inj) 100 ml @ 25 mls/hr UNSCH PRN IV 02/06/17 15:30 (K-Phos) 2,000 mg Q4H PRN PO 02/06/17 15:30 Potassium Phosphate 2000 mg 2,000 mg UNSCH PRN PO/TUBE 02/06/17 15:30 Potassium Phosphate 30 mmol/ Sodium Chloride 260 ml @ 42 mls/hr UNSCH PRN IV 02/06/17 15:30 (Sodium Phosphate Inj/NS 250 ml Inj) 250 ml @ 42 mls/hr UNSCH PRN IV 02/06/17 15:30 (Trandate Inj) 20 mg Q2H PRN IV PUSH 02/06/17 16:00 (D50w (Vial) Inj) 25 ml UNSCH PRN IV PUSH 02/09/17 16:30 (SoluMEDROL INJ) 40 mg Q12HR IV PUSH 02/09/17 21:00 02/10/17 08:45 Urinary Catheter: No Vascular Central Line Catheter: No A/P Problem List: (1) COPD with acute exacerbation ICD Code: J44.1 Status: Acute (2) Hypercapnic respiratory failure ICD Code: J96.92 Status: Resolved (3) Liver mass ICD Code: R16.0 Status: Acute (4) Moderate protein malnutrition ICD Code: E44.0 Status: Acute (5) Atrial fibrillation and flutter ICD Code: I48.91 Status: Acute (6) Depression ICD Code: F32.9 Status: Acute (7) Hyperglycemia ICD Code: R73.9 Status: Acute Assessment and Plan (1) COPD with acute exacerbation Plan: Patient admitted to the intensive care unit intubated and mechanically ventilated and placed under the care of principal product manager. Patient extubated on 02/08, doing well with good oxygen saturation currently on 3 L nasal cannula. Continue with bronchodilators, IV Levaquin, start steroid taper - decrease solumedrol IV to 40 mg IV every 12 hours (2) Hypercapnic respiratory failure Plan: Status post intubation and mechanical ventilation. Multiple ABGs obtained her hospitalization. Last one obtained on February 08 showed a pH of 7.34, PCO2 of 66 and a PO2 of 103. Continue with supplemental oxygen to keep oxygen saturation between 88-92%. (3) Liver mass Plan: Ultrasound obtained on 02/05/17 showed a fatty liver and study suggests a sizable solid lesion in left hepatic lobe. Which is apparently new. Stone in a contracted gallbladder. No evidence of cholecystitis or biliary obstruction. Abdominal CT scan obtained on 02/06/17 showed liver masses, one centrally in the left hepatic lobe and slightly smaller one inferiorly in the right hepatic lobe. As per CT scan report these lesions were not present on a CT pulmonary angiogram done in December 2015. My of the abdomen on 02/09/17 showed hepatic masses of concern for metastatic disease especially in the light of mediastinal and hilar adenopathy. Patient's upper new from prior study. Dilatation of the colon bile duct with no evidence of cholelithiasis or filling defect. Malignancy needs to be excluded. The patient is for CT-guided liver biopsy today. (4) Moderate protein malnutrition Plan: Patient with low albumin 2.6. Continue to monitor. (5) Atrial fibrillation and flutter Plan: Right controlled. Initially the patient presented with atrial fibrillation with RVR. EKG on admission on 02/05/17 at 2:04 AM showed atrial fibrillation with rapid ventricular response at a ventricular rate of 1 43 bpm, no ST-T changes suggestive of active ischemia at the time. Troponin was obtained and negative. I will check TSH, continue to monitor on telemetry, check a repeat troponin. Continue Cardizem by mouth 60 mg 4 times a day. (6) Depression Plan: Patient states she was on Zoloft long time ago. states feels depressed - consult psychiatry. (7) Hyperglycemia Plan: Patient denies h/o diabetes - Will check hemoglobin A1C and will place on SSI with insulin Novolog and monitor accuchecks. 02/10 Blood sugar with acceptable control. A1c pending. Continue SSI with insulin NovoLog and continue to monitor Accu-Cheks. GI prophylaxis: The patient is currently on famotidine. Continue to DVT prophylaxis: SCDs, heparin subcutaneously. Discharge Planning ok to transfer to the medical floor. Problem Qualifiers (1) Hypercapnic respiratory failure: Qualified Code: J96.22 - Acute on chronic respiratory failure with hypercapnia (2) Depression: Qualified Code: F32.9 - Depression, unspecified depression type Mervin Russ MD Feb 10, 2017 09:53
[2017-02-10] MEDS ORDERED: LIDOCAINE 1%/EPINEPHrine 1:100,000 SOLN 20 ML VIAL ONE (14:00)
[2017-02-10] MEDS ORDERED: fentaNYL CITRATE 250 MCG/5 ML AMP ONE (14:02)
[2017-02-10] MEDS ORDERED: MIDAZOLAM HCL 5 MG/5 ML VIAL ONE (14:02)
--- NOTE | 2017-02-10 16:26 | RADRPT ---
EXAM DATE/TIME: 02/10/2017 14:46 [facility] COMPARISON: No previous studies available for comparison. INDICATIONS : Liver masses. SEDATION TIME: 30 minutes BIOPSY SITE: Right abdomen. MEDICATION(S): 1.) 3 mg midazolam (Versed) IV 2.) 150 mcg fentanyl (Sublimaze) IV DEVICE(S): 1.) 18 gauge East blunt needle 2.) 20 gauge Temno core biopsy needle MEDICAL HISTORY : Hypertension. Chronic obstructive pulmonary disease. Renal calculi. SURGICAL HISTORY : Tubal ligation. ENCOUNTER: Initial ACUITY: 1 day PAIN SCORE: 0/10 LOCATION: Right upper quadrant A total of three core specimen(s) were obtained and sent to the laboratory for pathologic evaluation. PROCEDURE: 1. CT guided liver biopsy. Prior to the procedure informed consent was obtained. Any appropriate prior imaging studies were rev iewed. Using automated exposure control and adjustment of the mA and/or kV according to patient size, radiat ion dose was kept as low as reasonably achievable to obtain optimal diagnostic quality images. The site was prepped in a sterile fashion. Full sterile technique was used, including cap, mask, stan rile gloves and gown and a large sterile sheet. Hand hygiene and 2% chlorhexidine and/or betadine/al cohol prep was utilized per protocol for cutaneous antisepsis. The skin and subcutaneous tissues wer e infiltrated with local anesthetic solution. Under CT guidance an 18 gauge blunt needle was placed down to the lesion and 3 cores obtained. Follow-up CT scan reveals no hemorrhage. The patient tolerated the procedure well and there were no complications. The patient was returned to the Radiology Outpatient Unit in stable condition. CONCLUSION: Uncomplicated CT guided biopsy of the lesion right lobe of the liver suspicious for m etastatic disease. Fred Vieyra MD FACR on February 10, 2017 at 16:23 Board Certified Radiologist. This report was verified electronically.
[2017-02-10 16:32] LABS: HEMOGLOBIN A1a 0.9 %; HEMOGLOBIN A1b 2.6 %; HEMOGLOBIN Ao 81.9 %; HEMOGLOBIN LA1C 2.7 %; HEMOGLOBIN P3 4.4 %
[2017-02-11] VITALS (11 sets, daily range): BP systolic 106–146; BP diastolic 69–81; PULSE 90–107; RESP 18–20; TEMP 92.6–98.4; O2SAT 95–98
[2017-02-11] MEDS: RESP: ALBUTEROL 2.5 MG/IPRATROPIUM 0.5 MG NEB (SCH) INH ×7 (00:14→23:25)
[2017-02-11] MEDS: LEVOFLOXACIN 750 MG PREMIX INJ 150 ML IV SCH (03:51)
[2017-02-11 05:56] LABS: HEMATOCRIT 41.7 % (35.0-46.0); MEAN CELL VOLUME 84.6 FL (80.0-100.0); MEAN CORPUSCULAR HGB CONC 34.2 % (32.0-36.0); PLATELET COUNT 238 TH/MM3 (150-450); RED BLOOD COUNT 4.93 MIL/MM3 (4.00-5.30); REVIEW FLAG FINAL; WHITE BLOOD COUNT 7.2 TH/MM3 (4.0-11.0)
[2017-02-11 06:27] LABS: BICARBONATE 35.3 MEQ/L (21.0-32.0); POTASSIUM 4.2 MEQ/L (3.5-5.1)
[2017-02-11] MEDS: INSULIN NovoLIN REGULAR SUPPLEMENTAL SCALE SQ SCH ×3 (06:34→17:35)
[2017-02-11] MEDS: CHLORHEXIDINE 0.12% (ORAL KIT) 15 ML CUP MT SCH ×2 (07:58→20:00)
[2017-02-11] MEDS: methylPREDNISolone SOD SUCC 40 MG/1 ML VIAL IV PUSH SCH ×2 (08:20→20:48)
[2017-02-11] MEDS: DILTIAZEM HCL 60 MG TAB PO SCH ×4 (08:20→20:48)
[2017-02-11] MEDS: FAMOTIDINE 20 MG TAB PO SCH ×2 (08:20→20:48)
[2017-02-11] MEDS: SODIUM CHLORIDE 0.9% FLUSH 5 ML FLUSH IV FLUSH SCH ×2 (08:20→20:49)
--- NOTE | 2017-02-11 09:33 | MB ---
cc: AUDRA ZHU M.D. DATE OF CONSULTATION 02/11/2017 REASON FOR CONSULTATION COPD exacerbation. HISTORY OF PRESENT ILLNESS Mrs. Hook is a 51-year-old female with known history of COPD admitted with increasing shortness of breath, cough and expectoration of small amount of whitish sputum. Denies history of fever or chills. The patient initially admitted to Intensive Care Unit with gradual improvement, transferred to the medical floor. PAST MEDICAL HISTORY That of: 1. COPD 2. Hypertension 3. Atrial fibrillation 4. Mood disorder SOCIAL HISTORY Smokes a half a pack a day for over 30 years. Drinks alcohol on rare occasion. Does not use drugs. FAMILY HISTORY Noncontributory MEDICATIONS AT HOME Include: 1. Advair twice is a day 2. Nebulized Albuterol/Ipratropium 3. ProAir p.r.n. ALLERGIES VALIUM REVIEW OF SYSTEMS A 12-point review of systems as per HPI and past history, otherwise negative. PHYSICAL EXAM VITAL SIGNS: Temperature 98, pulse and 90, respirations 18, blood pressure 120/80. HEENT: Exam unremarkable. Eyes without icterus. NECK: Without adenopathy or thyroid enlargement. CHEST: Scattered rhonchi bilaterally. CARDIAC: PMI distant. S1-S2 audible. No murmur or rub. ABDOMEN: Lax, audible bowel sounds. EXTREMITIES: No clubbing, cyanosis or edema. LABORATORY DATA White count upon presentation 18,000, hemoglobin 15, platelets 244,000. Sodium 140, potassium 4.8, BUN 16, creatinine 0.9. IMPRESSION 1. COPD exacerbation 2. Hypoxic hypercarbic respiratory failure. 3. Atrial fibrillation 4. Liver mass PLAN The patient will continue on bronchodilator therapy and steroid therapy. Her chest x-ray is without acute infiltrate and normal. She does have a liver mass for which she underwent a needle biopsy and seems to be doing well. I do thank you for asking me to partake in Mrs. Hook's care. Audra Zhu MD WWW/EZIO /9:08 AM /9:22 AM
--- NOTE | 2017-02-11 09:48 | HHI.PR ---
Subjective Remarks Follow-up COPD exacerbation/liver mass/hypoxic hypercapnic refectory failure 02/11/17-patient seen and examined, reports significant improvement or shortness of breath and is currently on 2 L nasal cannula. Denies any wheezing. Afebrile. Objective Vitals Vital Signs Date Time Temp Pulse Resp B/P Pulse Ox O2 Delivery O2 Flow Rate FiO2 02/11/17 08:15 Nasal Cannula 3.00 02/11/17 07:47 98 Nasal Cannula 2.00 02/11/17 04:20 Nasal Cannula 3.00 02/11/17 04:20 98.2 90 18 136/75 96 02/11/17 00:30 102 02/11/17 00:00 Nasal Cannula 3.00 02/11/17 00:00 98.4 96 20 146/77 95 02/10/17 22:00 89 02/10/17 20:00 100 02/10/17 20:00 97.9 100 25 123/71 94 02/10/17 19:21 96 Nasal Cannula 2.50 02/10/17 18:37 117/67 02/10/17 18:00 107 02/10/17 18:00 107 21 153/84 95 02/10/17 17:30 97 20 131/76 90 02/10/17 17:00 97 20 133/79 94 02/10/17 16:30 94 18 140/80 95 02/10/17 16:00 91 02/10/17 16:00 97.8 91 15 141/77 97 02/10/17 16:00 97.8 91 15 141/77 97 02/10/17 15:45 91 16 142/74 97 02/10/17 15:30 91 02/10/17 15:30 91 18 130/77 95 02/10/17 12:00 97.9 95 16 141/84 98 02/10/17 12:00 95 02/10/17 10:00 96 I/O 02/10/17 02/10/17 02/10/17 02/11/17 02/11/17 02/11/17 07:00 15:00 23:00 07:00 15:00 23:00 Intake Total 513 ml 350 ml 990 ml 520 ml Output Total 650 ml 600 ml Balance -137 ml 350 ml 390 ml 520 ml Intake Oral 350 ml 350 ml 520 ml IV Total 163 ml 0 ml 672 ml Tube Feeding 58 ml Tube Irrigant 60 ml Other 200 ml Output Urine Total 650 ml 600 ml # Voids 2 # Bowel Movements 0 3 0 0 Result Diagram: 02/11/17 0550 02/11/17 0550 Imaging Last Impressions Liver Biopsy CT 02/10/17 0000 Signed Impressions: Service Date/Time: Friday, February 10, 2017 14:46 - CONCLUSION: Uncomplicated CT guided biopsy of the lesion right lobe of the liver suspicious for metastatic disease. Fred Vieyra MD FACR Abdomen MRI 02/09/17 0000 Signed Impressions: Service Date/Time: Thursday, February 09, 2017 20:22 - CONCLUSION: 1. 2 hepatic masses of concern for metastatic disease especially in light of the mediastinal and hilar adenopathy. The lesions also appear new from the prior study. 2. Dilatation the common bile duct with no evidence of cholelithiasis or filling defect. Paul Green MD Abdomen/Pelvis CT 02/06/17 0000 Signed Impressions: Service Date/Time: Monday, February 06, 2017 17:14 - CONCLUSION: 1. Liver masses as above, one centrally in the left hepatic lobe and a slightly smaller one inferiorly in the right hepatic lobe. These are not typical of cysts, hemangiomas or other definite benign structures. Additionally, the left hepatic lobe lesion is not convincingly present on the CT pulmonary angiogram done in December of 2015. Malignancy needs to be excluded. The right hepatic lobe lesion may be amenable to percutaneous needle biopsy. 2. Intrahepatic and extrahepatic biliary distention of unclear etiology but I believe not changed from December 2015.. Still, please correlate clinically and with any laboratory evidence of biliary obstruction. 3. 12 mm gallstone, probably impacted in the neck. However , no inflammatory changes are seen. Abhinav Turner MD Chest X-Ray 02/05/17 0057 Signed Impressions: Service Date/Time: Sunday, February 05, 2017 01:19 - CONCLUSION: 1. ET tube in good position. 2. Interval resolution of coarse bilateral lower lung interstitial infiltrates. Roberth Amaro MD Liver Ultrasound 02/05/17 0000 Signed Impressions: Service Date/Time: Sunday, February 05, 2017 19:51 - CONCLUSION: 1. Fatty liver and study suggests sizable solid lesion in the left hepatic lobe. This is apparently new. A contrast-enhanced CT or MRI of the abdomen is recommended. 2. Stone in a contracted gallbladder. No evidence of cholecystitis or biliary obstruction. Abhinav Turner MD Objective Remarks GENERAL: NAD SKIN: Warm and dry. HEAD: Normocephalic. EYES: No scleral icterus. No injection or drainage. NECK: Supple, trachea midline. No JVD or lymphadenopathy. CARDIOVASCULAR: Regular rate and rhythm without murmurs, gallops, or rubs. RESPIRATORY: Breath sounds equal bilaterally. No accessory muscle use. GASTROINTESTINAL: Abdomen soft, non-tender, nondistended. MUSCULOSKELETAL: No cyanosis, or edema. BACK: Nontender without obvious deformity. No CVA tenderness. Procedures Mechanical intubation and ventilation sp extubation A/P Problem List: (1) COPD with acute exacerbation ICD Code: J44.1 Status: Acute (2) Hypercapnic respiratory failure ICD Code: J96.92 Status: Resolved (3) Liver mass ICD Code: R16.0 Status: Acute (4) Moderate protein malnutrition ICD Code: E44.0 Status: Acute (5) Atrial fibrillation and flutter ICD Code: I48.91 Status: Acute (6) Depression ICD Code: F32.9 Status: Acute (7) Hyperglycemia ICD Code: R73.9 Status: Acute Assessment and Plan 51-year-old female with 1. COPD exacerbation: Continue current treatment including steroid, Levaquin, Bronchodilator scheduled and when necessary, and oxygen saturation above 92%. Appreciate input from pulmonary medicine. 2. Hypoxic hypercarbic respiratory failure: Resolved maintain oxygen saturation above 92%. 3. Atrial fibrillation: Rate control on Cardizem 4. Liver mass: Status post CT-guided liver biopsy pending pathology report. Check tumor markers including AFP, CEA, CA 19-9 5. Newly diagnosed diabetes type 2: A1c 6.8; Continue SSI with insulin NovoLog and continue to monitor Accu-Cheks. Will likely discharge home on by mouth metformin. Consult agricultural extension educator nurse 6. Depression: Psychiatry consultation pending 7. DVT prophylaxis: SCDs, heparin subcutaneously 8. GI prophylaxis: Famotidine Problem Qualifiers (1) Hypercapnic respiratory failure: Qualified Code: J96.22 - Acute on chronic respiratory failure with hypercapnia (2) Depression: Qualified Code: F32.9 - Depression, unspecified depression type Sal Loza MD Feb 11, 2017 09:48
--- NOTE | 2017-02-11 09:52 | RADRPT ---
EXAM DATE/TIME: 02/11/2017 09:38 [facility] COMPARISON: CT PULMONARY ANGIOGRAM, January 31, 2017, 10:07. CHEST PA & LAT, January 31, 2017, 6:15. INDICATIONS : Shortness of breath; COPD. MEDICAL HISTORY : Hypertension. Chronic obstructive pulmonary disease. SURGICAL HISTORY : None. ENCOUNTER: Subsequent ACUITY: 1 month PAIN SCORE: 0/10 LOCATION: Bilateral chest FINDINGS: The lungs are hyperinflated. There is chronic interstitial prominence seen. There is a focal area of consolidation or atelectasis at the medial left lung base. There is small patchy areas of density see n in the upper lungs bilaterally. No effusion is seen. The heart size is normal. CONCLUSION: 1. COPD with chronic interstitial disease. 2. Consolidation or atelectasis in the medial left lung base. There is also some minimal patchy conso lidation or atelectasis in the upper lungs. Abhinav Giles MD on February 11, 2017 at 9:47 Board Certified Radiologist. This report was verified electronically.
[2017-02-11 18:30] LABS: BLOOD GAS BASE EXCESS 7.7 mmol/L (-2-2); BLOOD GAS CARBOXYHEMOGLOBIN 1.1 % (0-4); BLOOD GAS HCO3 32 mmol/L (22-26); BLOOD GAS METHEMOGLOBIN 0.8 % (0-2); BLOOD GAS O2 HGB SATURATION 96 % (90-100); BLOOD GAS OXYGEN CONTENT 20.3 Vol % (12.0-20.0); BLOOD GAS PCO2 46 mmHg (38-42); BLOOD GAS PO2 110 mmHg (61-120); BLOOD GAS TOTAL HGB 14.9 G/DL (12.0-16.0); CRITICAL VALUE NO; DRAW SITE RT RADIAL; LITER FLOW 2 L/M; NUMBER OF ARTERIAL PUNCTURES 1; OXYGEN DEVICE NASAL CANNULA; STAT NO; TEMP CORR TO 98.6; ULNAR PULSE PRESENT
[2017-02-12] VITALS (12 sets, daily range): BP systolic 118–146; BP diastolic 70–86; PULSE 94–110; RESP 16–20; TEMP 97.6–98.8; O2SAT 96–99
[2017-02-12] MEDS: LEVOFLOXACIN 750 MG PREMIX INJ 150 ML IV SCH (04:01)
[2017-02-12] MEDS: RESP: ALBUTEROL 2.5 MG/IPRATROPIUM 0.5 MG NEB (SCH) INH ×6 (04:46→23:57)
[2017-02-12 05:20] LABS: HEMATOCRIT 41.8 % (35.0-46.0); MEAN CELL VOLUME 85.5 FL (80.0-100.0); MEAN CORPUSCULAR HEMOGLOBIN 28.1 PG (27.0-34.0); MEAN CORPUSCULAR HGB CONC 32.9 % (32.0-36.0); PLATELET COUNT 233 TH/MM3 (150-450); RED BLOOD COUNT 4.89 MIL/MM3 (4.00-5.30); RED CELL DISTRIBUTION WIDTH 14.3 % (11.6-17.2); REVIEW FLAG FINAL
[2017-02-12 05:47] LABS: BICARBONATE 33.5 MEQ/L (21.0-32.0); POTASSIUM 4.3 MEQ/L (3.5-5.1)
[2017-02-12] MEDS: INSULIN NovoLIN REGULAR SUPPLEMENTAL SCALE SQ SCH ×4 (06:00→17:29)
[2017-02-12] MEDS: CHLORHEXIDINE 0.12% (ORAL KIT) 15 ML CUP MT SCH ×2 (08:00→20:00)
--- NOTE | 2017-02-12 08:36 | HHI.PR ---
Subjective Remarks Alert sitting in bed no distress Objective Vital Signs Date Time Temp Pulse Resp B/P Pulse Ox O2 Delivery O2 Flow Rate FiO2 02/12/17 07:21 99 Nasal Cannula 2.00 02/12/17 04:48 98 Nasal Cannula 2.00 02/12/17 04:00 Nasal Cannula 2.00 02/12/17 04:00 97.6 94 20 138/80 98 02/12/17 00:00 97.8 96 18 118/73 99 02/12/17 00:00 Nasal Cannula 2.00 02/11/17 23:27 98 Nasal Cannula 2.00 02/11/17 20:14 105 02/11/17 20:00 Nasal Cannula 2.00 02/11/17 20:00 98.3 103 20 106/69 97 02/11/17 16:02 97.6 107 18 121/69 98 02/11/17 12:01 97.6 106 18 128/73 98 02/11/17 09:15 101 I/O 02/11/17 02/11/17 02/11/17 02/12/17 02/12/17 02/12/17 07:00 15:00 23:00 07:00 15:00 23:00 Intake Total 520 ml 602 ml 600 ml 630 ml Balance 520 ml 602 ml 600 ml 630 ml Intake Oral 520 ml 600 ml 600 ml 480 ml IV Total 2 ml 150 ml # Voids 2 4 3 3 # Bowel Movements 0 0 1 0 Result Diagram: 02/12/17 0505 02/12/17 0505 Objective Remarks Last 48 hours Impressions Chest X-Ray 02/11/17 0000 Signed Impressions: Service Date/Time: January 09:38 - CONCLUSION: 1. COPD with chronic interstitial disease. 2. Consolidation or atelectasis in the medial left lung base. There is also some minimal patchy consolidation or atelectasis in the upper lungs. Abhinav Giles MD Assessment and Plan Assessment and Plan COPD , IMPROVED RESPIRATORY FAILURE ON O2 AFIB , CONTROLLED LIVER MASS , POS BIOPSY PLAN: O2 NEEDED BRONCHODILATOR THERAPY INCREASE ACTIVITY Audra Zhu MD Feb 12, 2017 08:36
[2017-02-12] MEDS: FAMOTIDINE 20 MG TAB PO SCH ×2 (09:23→20:26)
[2017-02-12] MEDS: DILTIAZEM HCL 60 MG TAB PO SCH ×4 (09:23→20:26)
[2017-02-12] MEDS: methylPREDNISolone SOD SUCC 40 MG/1 ML VIAL IV PUSH SCH ×2 (09:24→20:26)
[2017-02-12] MEDS: SODIUM CHLORIDE 0.9% FLUSH 5 ML FLUSH IV FLUSH SCH ×2 (09:24→20:26)
--- NOTE | 2017-02-12 10:10 | HHI.PR ---
Subjective Remarks Follow-up COPD exacerbation/liver mass/hypoxic hypercapnic refectory failure 02/11/17-patient seen and examined, reports significant improvement or shortness of breath and is currently on 2 L nasal cannula. Denies any wheezing. Afebrile. 02/12/17-patient seen and examined, no acute event overnight however patient is asking if she can be discharged home. Discussed report of elevated CA 19 as well as CEA with patient Objective Vitals Vital Signs Date Time Temp Pulse Resp B/P Pulse Ox O2 Delivery O2 Flow Rate FiO2 02/12/17 08:02 98.8 98 16 141/81 98 02/12/17 07:21 99 Nasal Cannula 2.00 02/12/17 04:48 98 Nasal Cannula 2.00 02/12/17 04:00 Nasal Cannula 2.00 02/12/17 04:00 97.6 94 20 138/80 98 02/12/17 00:00 97.8 96 18 118/73 99 02/12/17 00:00 Nasal Cannula 2.00 02/11/17 23:27 98 Nasal Cannula 2.00 02/11/17 20:14 105 02/11/17 20:00 Nasal Cannula 2.00 02/11/17 20:00 98.3 103 20 106/69 97 02/11/17 16:02 97.6 107 18 121/69 98 02/11/17 12:01 97.6 106 18 128/73 98 I/O 02/11/17 02/11/17 02/11/17 02/12/17 02/12/17 02/12/17 07:00 15:00 23:00 07:00 15:00 23:00 Intake Total 520 ml 602 ml 600 ml 630 ml Balance 520 ml 602 ml 600 ml 630 ml Intake Oral 520 ml 600 ml 600 ml 480 ml IV Total 2 ml 150 ml # Voids 2 4 3 3 # Bowel Movements 0 0 1 0 Result Diagram: 02/12/17 0505 02/12/17 0505 Imaging Last Impressions Chest X-Ray 02/11/17 0000 Signed Impressions: Service Date/Time: January 09:38 - CONCLUSION: 1. COPD with chronic interstitial disease. 2. Consolidation or atelectasis in the medial left lung base. There is also some minimal patchy consolidation or atelectasis in the upper lungs. Abhinav Giles MD Liver Biopsy CT 02/10/17 0000 Signed Impressions: Service Date/Time: Friday, February 10, 2017 14:46 - CONCLUSION: Uncomplicated CT guided biopsy of the lesion right lobe of the liver suspicious for metastatic disease. Fred Vieyra MD FACR Abdomen MRI 02/09/17 0000 Signed Impressions: Service Date/Time: Thursday, February 09, 2017 20:22 - CONCLUSION: 1. 2 hepatic masses of concern for metastatic disease especially in light of the mediastinal and hilar adenopathy. The lesions also appear new from the prior study. 2. Dilatation the common bile duct with no evidence of cholelithiasis or filling defect. Paul Green MD Abdomen/Pelvis CT 02/06/17 0000 Signed Impressions: Service Date/Time: Monday, February 06, 2017 17:14 - CONCLUSION: 1. Liver masses as above, one centrally in the left hepatic lobe and a slightly smaller one inferiorly in the right hepatic lobe. These are not typical of cysts, hemangiomas or other definite benign structures. Additionally, the left hepatic lobe lesion is not convincingly present on the CT pulmonary angiogram done in December of 2015. Malignancy needs to be excluded. The right hepatic lobe lesion may be amenable to percutaneous needle biopsy. 2. Intrahepatic and extrahepatic biliary distention of unclear etiology but I believe not changed from December 2015.. Still, please correlate clinically and with any laboratory evidence of biliary obstruction. 3. 12 mm gallstone, probably impacted in the neck. However , no inflammatory changes are seen. Abhinav Turner MD Liver Ultrasound 02/05/17 0000 Signed Impressions: Service Date/Time: Sunday, February 05, 2017 19:51 - CONCLUSION: 1. Fatty liver and study suggests sizable solid lesion in the left hepatic lobe. This is apparently new. A contrast-enhanced CT or MRI of the abdomen is recommended. 2. Stone in a contracted gallbladder. No evidence of cholecystitis or biliary obstruction. Abihnav Turner MD Objective Remarks GENERAL: NAD SKIN: Warm and dry. HEAD: Normocephalic. EYES: No scleral icterus. No injection or drainage. NECK: Supple, trachea midline. No JVD or lymphadenopathy. CARDIOVASCULAR: Regular rate and rhythm without murmurs, gallops, or rubs. RESPIRATORY: Breath sounds equal bilaterally. No accessory muscle use. GASTROINTESTINAL: Abdomen soft, non-tender, nondistended. MUSCULOSKELETAL: No cyanosis, or edema. BACK: Nontender without obvious deformity. No CVA tenderness. Procedures Mechanical intubation and ventilation sp extubation A/P Problem List: (1) COPD with acute exacerbation ICD Code: J44.1 Status: Acute (2) Hypercapnic respiratory failure ICD Code: J96.92 Status: Resolved (3) Liver mass ICD Code: R16.0 Status: Acute (4) Moderate protein malnutrition ICD Code: E44.0 Status: Acute (5) Atrial fibrillation and flutter ICD Code: I48.91 Status: Acute (6) Depression ICD Code: F32.9 Status: Acute (7) Hyperglycemia ICD Code: R73.9 Status: Acute Assessment and Plan 51-year-old female with 1. COPD exacerbation: Continue current treatment including steroid, Levaquin, Bronchodilator scheduled and when necessary, and oxygen saturation above 92%. Appreciate input from pulmonary medicine. 2. Hypoxic hypercarbic respiratory failure: Resolved maintain oxygen saturation above 92%. 3. Atrial fibrillation: Rate control on Cardizem 4. Liver mass: Status post CT-guided liver biopsy pending pathology report. Elevated both CEA 5.39, CA 19-9 98.1 oh which oncology will be consulted pending pathology of liver mass biopsy 5. Newly diagnosed diabetes type 2: A1c 6.8; Continue SSI with insulin NovoLog and continue to monitor Accu-Cheks. Will likely discharge home on by mouth metformin. yard demurrage clerk nurse consult pending 6. Depression: Continue current treatment 7. DVT prophylaxis: SCDs, heparin subcutaneously 8. GI prophylaxis: Famotidine Problem Qualifiers (1) Hypercapnic respiratory failure: Qualified Code: J96.22 - Acute on chronic respiratory failure with hypercapnia (2) Depression: Qualified Code: F32.9 - Depression, unspecified depression type Sal Loza MD Feb 12, 2017 10:10
[2017-02-12] MEDS ORDERED: GADODIAMIDE PF 287 MG/ML 20 ML VIAL (for RAD MRI) IV ONE (19:16)
--- NOTE | 2017-02-12 20:11 | RADRPT ---
EXAM DATE/TIME: 02/12/2017 18:59 [facility] COMPARISON: MRI ABDOMEN W & W/O CONTRAST, February 09, 2017, 20:22. CHEST PA & LAT, February 11, 2017, 9:38. INDICATIONS : Metastatic evaluation. Multiple liver masses. CONTRAST: 15 cc Omniscan (gadodiamide) IV MEDICAL HISTORY : Chronic obstructive pulmonary disease. Lung nodule. Liver masses. SURGICAL HISTORY : Tubal ligation. ENCOUNTER: Initial ACUITY: 1 day PAIN SCORE: 0/10 LOCATION: cranial TECHNIQUE: Multiplanar, multisequence MRI of the brain was performed both prior to and following the administrat ion of paramagnetic contrast. FINDINGS: CEREBRUM: The ventricles are normal for age. No evidence of midline shift, mass lesion, hemorrhage or acute in farction. No extraaxial fluid collections are seen. The pituitary gland and suprasellar cistern are normal in configuration. WHITE MATTER: No significant signal abnormalities are seen in the white matter. POSTERIOR FOSSA: The cerebellum and brainstem are intact. The 4th ventricle is midline. The cerebellopontine angle is unremarkable. The cerebellar tonsils are normal in position. DIFFUSION IMAGING: No focal areas of restricted diffusion are seen. No evidence of acute infarction. EXTRACRANIAL: The visualized portions of the orbits and paranasal sinuses are unremarkable. POST-CONTRAST: No abnormal areas of parenchymal or dural enhancement. No evidence of blood-brain barrier breakdown. CONCLUSION: No evidence of metastatic disease. Paul Green MD on February 12, 2017 at 20:07 Board Certified Radiologist. This report was verified electronically.
--- NOTE | 2017-02-12 23:19 | MB ---
cc: PEPE TIPTON MD DATE OF CONSULTATION 02/12/17 REASON FOR CONSULTATION Consult requested by [facility] for evaluation of liver masses. HISTORY OF PRESENT ILLNESS Chrissy is a 51-year-old female. She has a history of heavy cigarette smoking which she recently quit. She also has severe COPD and atrial fibrillation. She came to the emergency room complaining of shortness of breath. Recently, she was discharged from [facility] two days prior to the admission after she was admitted for chronic obstructive pulmonary disease exacerbation. She required intubation and mechanical ventilation. She was successfully extubated. She had a CAT scan of the abdomen and pelvis which showed liver masses consistent with malignancy. Subsequently, she had abdominal MRI which confirms solid masses in the liver. She underwent liver biopsy two days ago. The patient is very anxious. She wants to go home. She is short of breath. She has dyspnea on exertion. She denies any weight loss. Appetite is okay. The rest of review of systems is negative. PAST MEDICAL HISTORY 1. Chronic obstructive pulmonary disease 2. Atrial fibrillation PAST SURGICAL HISTORY Tubal ligation. ALLERGIES VALIUM MEDICATIONS Please see EMR. FAMILY HISTORY Noncontributory. SOCIAL HISTORY The patient recently stopped smoking and alcohol. PHYSICAL EXAMINATION GENERAL: The patient is a well-developed, anxious white female. VITAL SIGNS: Temperature 97.9, heart rate 110. The blood pressure 144/83, O2 saturation 98% on two liters nasal cannula. HEENT: PERRLA, EOMI, anicteric. No oral lesions are noted. NECK: Supple. LYMPH: There is no cervical, supraclavicular, axillary lymphadenopathy noted. LUNGS: Clear, no wheezing, rhonchi or rales. HEART: Tachycardia. LUNGS: Decreased breath sounds on both sides with scattered wheezes. ABDOMEN: Soft. No hepatosplenomegaly. Tenderness noted in the right upper quadrant. EXTREMITIES: No pedal edema. NEUROLOGIC: Awake, alert, oriented times threes SKIN: No significant lesions noted. ASSESSMENT Multiple liver masses. The biopsy shows small cell lung cancer. PLAN I have reviewed her available records and I have discussed with the patient regarding the liver biopsy result which shows small cell lung cancer. We discussed that this is a stage IV lung cancer and the treatment would be palliative chemotherapy. We discussed the risks and benefits of chemotherapy. The patient has agreed with that. On her last admission recently, she had a CT angiogram of the chest which does not show any pulmonary embolism but it showed mediastinal and bilateral hilar lymphadenopathy. A repeat CAT scan of the chest was recommended by radiologist to be done in two or three weeks to follow up on the hilar mass. I will get the CAT scan of the chest and MRI of the brain for staging of her small cell lung cancer. I have recommended palliative chemotherapy carboplatin and etoposide. The patient has poor venous access and she will require [id number]. I will consult general surgery for [id number] placement for the chemotherapy. The patient could be followed as an outpatient after she is discharged to home. Thank you for asking my opinion. MD ANTWON Logan/ /9:52 PM /11:07 PM MTDCristian
[2017-02-13 00:01] VITALS: BP 123/68; PULSE 91; RESP 18; TEMP 98.2; O2SAT 97
[2017-02-13] MEDS: INSULIN NovoLIN REGULAR SUPPLEMENTAL SCALE SQ SCH ×4 (00:08→17:31)
[2017-02-13] MEDS: LEVOFLOXACIN 750 MG PREMIX INJ 150 ML IV SCH (02:57)
[2017-02-13] MEDS: RESP: ALBUTEROL 2.5 MG/IPRATROPIUM 0.5 MG NEB (SCH) INH ×4 (03:25→15:20)
[2017-02-13 04:00] VITALS: BP 134/77; PULSE 89; RESP 18; TEMP 97.9; O2SAT 96
[2017-02-13 07:05] LABS: HEMATOCRIT 41.6 % (35.0-46.0); MEAN CELL VOLUME 85.8 FL (80.0-100.0); MEAN CORPUSCULAR HEMOGLOBIN 28.8 PG (27.0-34.0); MEAN CORPUSCULAR HGB CONC 33.5 % (32.0-36.0); PLATELET COUNT 226 TH/MM3 (150-450); RED BLOOD COUNT 4.85 MIL/MM3 (4.00-5.30); RED CELL DISTRIBUTION WIDTH 14.2 % (11.6-17.2); REVIEW FLAG FINAL; WHITE BLOOD COUNT 12.3 TH/MM3 (4.0-11.0)
[2017-02-13 07:21] LABS: BICARBONATE 32.7 MEQ/L (21.0-32.0); POTASSIUM 4.2 MEQ/L (3.5-5.1)
[2017-02-13] MEDS: CHLORHEXIDINE 0.12% (ORAL KIT) 15 ML CUP MT SCH (08:00)
[2017-02-13 08:16] VITALS: BP 139/77; PULSE 90; RESP 18; TEMP 97.7; O2SAT 98
--- NOTE | 2017-02-13 08:41 | PD.ONC.PN ---
Subjective Subjective Remarks Afebrile overnight. Patient very anxious about multiple issues. She is waiting to get a breathing treatment. She is overwhelmed at the recent news that she has lung cancer. She wants to know when she can go home. She doesn't understand why she has lung cancer when she had a mass in her liver. Objective Data Date Time Temp Pulse Resp B/P Pulse Ox O2 Delivery O2 Flow Rate FiO2 02/13/17 08:16 97.7 90 18 139/77 98 02/13/17 04:00 97.9 89 18 134/77 96 02/13/17 04:00 Nasal Cannula 2.00 02/13/17 00:01 98.2 91 18 123/68 97 02/13/17 00:00 Nasal Cannula 2.00 02/12/17 23:59 98 Nasal Cannula 2.00 02/12/17 20:01 98.1 110 18 139/70 96 02/12/17 20:00 Nasal Cannula 2.00 02/12/17 20:00 109 02/12/17 16:03 98.3 100 16 146/86 02/12/17 15:13 98 Nasal Cannula 2.00 02/12/17 12:01 97.9 110 16 144/83 98 02/13/17 02/13/17 02/13/17 07:00 15:00 23:00 Intake Total 155 ml Balance 155 ml Result Diagram: 02/13/17 0645 02/13/17 0645 Laboratory Results Laboratory Tests Test 02/13/17 06:45 White Blood Count 12.3 TH/MM3 Red Blood Count 4.85 MIL/MM3 Hemoglobin 14.0 GM/DL Hematocrit 41.6 % Mean Corpuscular Volume 85.8 FL Mean Corpuscular Hemoglobin 28.8 PG Mean Corpuscular Hemoglobin 33.5 % Concent Red Cell Distribution Width 14.2 % Platelet Count 226 TH/MM3 Mean Platelet Volume 9.1 FL Sodium Level 140 MEQ/L Potassium Level 4.2 MEQ/L Chloride Level 100 MEQ/L Carbon Dioxide Level 32.7 MEQ/L Anion Gap 7 MEQ/L Blood Urea Nitrogen 22 MG/DL Creatinine 0.68 MG/DL Estimat Glomerular Filtration 91 ML/MIN Rate Random Glucose 139 MG/DL Calcium Level 8.7 MG/DL Administered Medications Medications (Trade) Dose Ordered Sig/Rossana Route PRN Reason Start Time Stop Time Status Last Admin Dose Admin Chlorhexidine Gluconate 15 ml 15 ml BID@08,20 MT 02/05/17 08:00 02/08/17 09:17 Propofol (Diprivan 1000 Mg/100ml Inj) 100 ml @ 0 mls/hr TITRATE IV 02/05/17 02:30 02/08/17 06:56 IV Flush (NS Flush) 2 ml UNSCH PRN IV FLUSH FLUSH AFTER USING IV ACCESS 02/05/17 02:45 02/12/17 04:01 IV Flush (NS Flush) 2 ml BID IV FLUSH 02/05/17 09:00 02/12/17 20:26 Acetaminophen (Tylenol) 650 mg Q6H PRN PO PAIN 1-10 AND/OR FEVER >101F 02/05/17 02:45 02/13/17 02:58 Famotidine (Pepcid) 20 mg Q12HR PO 02/05/17 09:00 02/12/17 20:26 Heparin Sodium (Porcine) 5000 units 5,000 units Q12HR SQ 02/05/17 09:00 Hold 02/09/17 08:16 Levofloxacin/ Dextrose (Levaquin 750 Mg Premix Inj) 150 ml @ 100 mls/hr Q24H IV 02/05/17 03:00 02/13/17 02:57 Diltiazem HCl (Cardizem) 60 mg QID PO 02/05/17 09:00 02/12/17 20:26 Insulin Human Regular (NovoLIN R SUPPLEMENTAL SCALE) 1 Q6HR SQ 02/06/17 18:00 02/13/17 00:08 Methylprednisolone Sodium Succinate (SoluMEDROL INJ) 40 mg Q12HR IV PUSH 02/09/17 21:00 02/12/17 20:26 Objective Remarks GENERAL: Anxious tearful female, sitting up in chair SKIN: Warm and dry. multiple bruises on arms. HEAD: Atraumatic. Normocephalic. EYES: Pupils equal and round. No scleral icterus. No injection or drainage. ENT: No nasal bleeding or discharge. Mucous membranes pink and moist. NECK: Trachea midline. No JVD. CARDIOVASCULAR: Regular rate and rhythm. RESPIRATORY: diminished at bases, scattered wheezes GASTROINTESTINAL: Abdomen soft, non-tender, nondistended. MUSCULOSKELETAL: Extremities without clubbing, cyanosis, or edema. NEUROLOGICAL: Awake and alert. Normal speech. Assessment/Plan Problem List: (1) SCLC (small cell lung carcinoma) Status: Acute Plan: 02/13: await GS consult for port placement. fs faxed to new patient referrals. I sat and listened to the patient voice her concerns. I voiced understanding of her complaints. Emotional support provided. feelings validated. We then again discussed her new diagnosis of metastatic lung cancer. She asked me to print out patient information because "everyone keeps asking me whats wrong and I can't tell them". I initially was hesitant to do so, as I explained it may make her more anxious. I asked her if she wanted me to instead call one of her family members to review the diagnosis with them. Initially she indicated she didn't have their phone numbers, then explained she didn't want me to call them because "they will just make a mountain out of a mole-hill." So I printed out basic information about small cell lung cancer from [facility]. I then sat and reviewed it with her. The patient became tearful again. Emotional support provided. She again reiterated just wanting to go home. I discussed the aggressive nature of small cell lung cancer and the importance of prompt treatment. The patient is insistent that she wants to go home today and follow up in the clinic for treatment. UPDATE: I discussed with Dr. Martinez and Dr. Loza. I explained to the patient that, although not advisable, she may be discharged home today. I explained that the cancer will continue to grow and due to current patient volumes and referrals, she will not be able to be seen in the clinic for ~ 3 weeks. We also discussed other possible administrative hurtles of insurance authorization and referral from her primary care physician which may further prolong time until follow up. I explained the best and most advisable course of action would be to receive a port and start chemotherapy in the hospital (will take three days). Once chemo is finished she could then be discharged home and follow up in clinic. The patient will think about this and discuss with her family and let the nurse know her decision. I provided the patient with our brochure and card, as well as the number to new patient referrals. --liver biopsy showed small cell lung cancer --CTA on last admit showed mediastinal and bilateral hilar lymphadenopathy --MRI brain: no mets --GS consulted for port placement for chemotherapy Assessment 51y/o female admitted for copd exacerbation. Oncology consulted for evaluation of liver masses. Now with newly diagnosed stage IV small cell lung cancer. h/o Chronic obstructive pulmonary disease Atrial fibrillation Attending Statement very anxious. Wants to go home. MRI brain = no mets. CT chest = extensive med LAD d/w pt regarding results and importance of staying in the hospital to get chemo. She has decline. she wants to do it as outpt. appt to see me as outpt and will start chemo The exam, history, and the medical decision-making described in the above note were completed with the assistance of the mid-level provider. I reviewed and agree with the findings presented. I attest that I had a [id number] encounter with the patient on the same day, and personally performed and documented my assessment and findings in the medical record. Margo Wan Feb 13, 2017 08:41 Alyssa Martinez MD Feb 13, 2017 18:32
[2017-02-13] MEDS ORDERED: IOHEXOL 350 MG/ML 10 ML VIAL (for RAD DIAG) IV ONE (09:02)
[2017-02-13] MEDS: FAMOTIDINE 20 MG TAB PO SCH (09:16)
[2017-02-13] MEDS: DILTIAZEM HCL 60 MG TAB PO SCH ×3 (09:16→17:31)
[2017-02-13 09:18] VITALS: O2SAT 98
[2017-02-13] MEDS: methylPREDNISolone SOD SUCC 40 MG/1 ML VIAL IV PUSH SCH (09:18)
[2017-02-13] MEDS ORDERED: LORazepam 1 MG TAB PO ONE (10:00)
--- NOTE | 2017-02-13 10:19 | HHI.PR ---
Subjective Remarks Follow-up COPD exacerbation/liver mass/hypoxic hypercapnic refectory failure 02/11/17-patient seen and examined, reports significant improvement or shortness of breath and is currently on 2 L nasal cannula. Denies any wheezing. Afebrile. 02/12/17-patient seen and examined, no acute event overnight however patient is asking if she can be discharged home. Discussed report of elevated CA 19 as well as CEA with patient 02/13/17-patient seen and examined, she is overwhelmed by the new of her diagnosis of small cell lung cancer. Denies any chest pain or significant shortness of breath Objective Vitals Vital Signs Date Time Temp Pulse Resp B/P Pulse Ox O2 Delivery O2 Flow Rate FiO2 02/13/17 08:16 97.7 90 18 139/77 98 02/13/17 04:00 97.9 89 18 134/77 96 02/13/17 04:00 Nasal Cannula 2.00 02/13/17 00:01 98.2 91 18 123/68 97 02/13/17 00:00 Nasal Cannula 2.00 02/12/17 23:59 98 Nasal Cannula 2.00 02/12/17 20:01 98.1 110 18 139/70 96 02/12/17 20:00 Nasal Cannula 2.00 02/12/17 20:00 109 02/12/17 16:03 98.3 100 16 146/86 02/12/17 15:13 98 Nasal Cannula 2.00 02/12/17 12:01 97.9 110 16 144/83 98 I/O 02/12/17 02/12/17 02/12/17 02/13/17 02/13/17 02/13/17 07:00 15:00 23:00 07:00 15:00 23:00 Intake Total 630 ml 480 ml 280 ml 155 ml Output Total 600 ml Balance 630 ml -120 ml 280 ml 155 ml Intake Oral 480 ml 480 ml 280 ml IV Total 150 ml 155 ml Output Urine Total 600 ml # Voids 3 4 # Bowel Movements 0 0 0 Result Diagram: 02/13/17 0645 02/13/17 0645 Imaging Last Impressions Brain MRI 02/12/17 0000 Signed Impressions: Service Date/Time: Sunday, February 12, 2017 18:59 - CONCLUSION: No evidence of metastatic disease. Paul Green MD Chest X-Ray 02/11/17 Signed Impressions: Service Date/Time: January 09:38 - CONCLUSION: 1. COPD with chronic interstitial disease. 2. Consolidation or atelectasis in the medial left lung base. There is also some minimal patchy consolidation or atelectasis in the upper lungs. Abhinav Giles MD Liver Biopsy CT 02/10/17 0000 Signed Impressions: Service Date/Time: Friday, February 10, 2017 14:46 - CONCLUSION: Uncomplicated CT guided biopsy of the lesion right lobe of the liver suspicious for metastatic disease. Fred Vieyra MD FACR Abdomen MRI 02/09/17 0000 Signed Impressions: Service Date/Time: Thursday, February 09, 2017 20:22 - CONCLUSION: 1. 2 hepatic masses of concern for metastatic disease especially in light of the mediastinal and hilar adenopathy. The lesions also appear new from the prior study. 2. Dilatation the common bile duct with no evidence of cholelithiasis or filling defect. Paul Green MD Abdomen/Pelvis CT 02/06/17 0000 Signed Impressions: Service Date/Time: Monday, February 06, 2017 17:14 - CONCLUSION: 1. Liver masses as above, one centrally in the left hepatic lobe and a slightly smaller one inferiorly in the right hepatic lobe. These are not typical of cysts, hemangiomas or other definite benign structures. Additionally, the left hepatic lobe lesion is not convincingly present on the CT pulmonary angiogram done in December of 2015. Malignancy needs to be excluded. The right hepatic lobe lesion may be amenable to percutaneous needle biopsy. 2. Intrahepatic and extrahepatic biliary distention of unclear etiology but I believe not changed from December 2015.. Still, please correlate clinically and with any laboratory evidence of biliary obstruction. 3. 12 mm gallstone, probably impacted in the neck. However , no inflammatory changes are seen. Abhinav Turner MD Liver Ultrasound 02/05/17 0000 Signed Impressions: Service Date/Time: Sunday, February 05, 2017 19:51 - CONCLUSION: 1. Fatty liver and study suggests sizable solid lesion in the left hepatic lobe. This is apparently new. A contrast-enhanced CT or MRI of the abdomen is recommended. 2. Stone in a contracted gallbladder. No evidence of cholecystitis or biliary obstruction. Abhinav Turner MD Objective Remarks GENERAL: NAD SKIN: Warm and dry. HEAD: Normocephalic. EYES: No scleral icterus. No injection or drainage. NECK: Supple, trachea midline. No JVD or lymphadenopathy. CARDIOVASCULAR: Regular rate and rhythm without murmurs, gallops, or rubs. RESPIRATORY: Breath sounds equal bilaterally. No accessory muscle use. GASTROINTESTINAL: Abdomen soft, non-tender, nondistended. MUSCULOSKELETAL: No cyanosis, or edema. BACK: Nontender without obvious deformity. No CVA tenderness. Procedures Mechanical intubation and ventilation sp extubation A/P Problem List: (1) SCLC (small cell lung carcinoma) ICD Code: C34.90 Status: Acute (2) COPD with acute exacerbation ICD Code: J44.1 Status: Acute (3) Hypercapnic respiratory failure ICD Code: J96.92 Status: Resolved (4) Liver mass ICD Code: R16.0 Status: Acute (5) Moderate protein malnutrition ICD Code: E44.0 Status: Acute (6) Atrial fibrillation and flutter ICD Code: I48.91 Status: Acute (7) Depression ICD Code: F32.9 Status: Acute (8) Hyperglycemia ICD Code: R73.9 Status: Acute Assessment and Plan 51-year-old female with 1. Small cell lung cancer-stage IV: Liver biopsy positive for small cell lung cancer, for which oncology was consulted and patient will need palliative chemotherapy. General surgery will be consulted for port placement. Check CT chest 2. COPD exacerbation: Continue current treatment including steroid, Levaquin, Bronchodilator scheduled and when necessary, and oxygen saturation above 92%. Appreciate input from pulmonary medicine. 3. Hypoxic hypercarbic respiratory failure: Resolved maintain oxygen saturation above 92%. 4. Atrial fibrillation: Rate control on Cardizem 5. Liver mass: Status post CT-guided liver biopsy positive for small cell lung cancer 6. Newly diagnosed diabetes type 2: A1c 6.8; Continue SSI with insulin NovoLog and continue to monitor Accu-Cheks. Will likely discharge home on by mouth metformin. 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 Depression: Continue current treatment 8. DVT prophylaxis: SCDs, heparin subcutaneously 9. GI prophylaxis: Famotidine Problem Qualifiers (1) Hypercapnic respiratory failure: Qualified Code: J96.22 - Acute on chronic respiratory failure with hypercapnia (2) Depression: Qualified Code: F32.9 - Depression, unspecified depression type Pontey,Sal MD Feb 13, 2017 10:19
[2017-02-13] MEDS: SODIUM CHLORIDE 0.9% FLUSH 5 ML FLUSH IV FLUSH SCH (11:09)
[2017-02-13] MEDS ORDERED: SPIRCAP INH (11:33)
[2017-02-13] MEDS ORDERED: AZIT250T3 PO (11:33)
[2017-02-13] MEDS ORDERED: IPRA17I INH (11:33)
[2017-02-13] MEDS ORDERED: PRED10PA PO (11:33)
[2017-02-13] MEDS ORDERED: DILT60TA33 PO (11:33)
[2017-02-13 12:15] VITALS: BP 136/84; PULSE 112; RESP 20; TEMP 97.6; O2SAT 97
--- NOTE | 2017-02-13 13:35 | RADRPT ---
EXAM DATE/TIME: 02/13/2017 10:42 [facility] COMPARISON: CHEST PA & LAT, February 11, 2017, 9:38. INDICATIONS : Evaluate for metastatic disease. IV CONTRAST: 100 cc Omnipaque 350 (iohexol) IV RADIATION DOSE: 4.02 CTDIvol (mGy) MEDICAL HISTORY : Hypertension. Chronic obstructive pulmonary disease. SURGICAL HISTORY : Tubal ligation. ENCOUNTER: Initial ACUITY: 1 day PAIN SCALE: 0/10 LOCATION: Bilateral chest TECHNIQUE: Volumetric scanning of the chest was performed. Using automated exposure control and adjustment of t he mA and/or kV according to patient size, radiation dose was kept as low as reasonably achievable to obtain optimal diagnostic quality images. FINDINGS: LUNGS: There is bullous emphysema bilaterally characteristic for COPD. There is bilateral chronic interstiti al changes. There is platelike atelectasis versus scarring in the lingula segment of the left lung. O therwise, no acute pulmonary infiltrates are demonstrated. PLEURA: No pleural effusions. There is chronic pleural thickening on the right side. MEDIASTINUM: There is diffuse mediastinal adenopathy suspicious for neoplastic disease. AXILLAE: Within normal limits. No lymphadenopathy. SKELETAL: Within normal limits for patient age. No gross lytic or blastic lesions. MISCELLANEOUS: Low-density lesion in the liver suspicious for liver metastatic disease. CONCLUSION: 1. COPD with bullous emphysema and chronic interstitial lung changes. No acute pulmonary infiltrates. 2. Linear atelectasis versus scarring lingula segment. 3. Diffuse mediastinal adenopathy suspicious for neoplastic disease. Recommend PET CT for further gely luation. Guille Flores MD on February 13, 2017 at 10:51 Board Certified Radiologist. This report was verified electronically.
[2017-02-13 16:06] VITALS: BP 125/72; PULSE 109; RESP 20; TEMP 97.3; O2SAT 97
[2017-02-13] MEDS ORDERED: METF500T PO (17:21)
[2017-02-13] MEDS ORDERED: LIPI20TA PO (17:21)
--- NOTE | 2017-02-13 17:24 | HHI.DS ---
Discharge Summary Admission Date Feb 05, 2017 at 02:30 Discharge Date: Feb 13, 2017 Admitting Diagnosis COPD exacerbation, A. fib with RVR, respiratory distress (1) SCLC (small cell lung carcinoma) ICD Code: C34.90 (2) COPD with acute exacerbation ICD Code: J44.1 (3) Hypercapnic respiratory failure ICD Code: J96.92 (4) Liver mass ICD Code: R16.0 (5) Moderate protein malnutrition ICD Code: E44.0 (6) Atrial fibrillation and flutter ICD Code: I48.91 (7) Depression ICD Code: F32.9 (8) Hyperglycemia ICD Code: R73.9 Procedures Mechanical intubation and ventilation sp extubation Brief History - From Admission 51 y/o woman discharged 2 days ago after treatment for CO2 exacerbation presents again tonight with same requiring intubation and mechanical ventilation. CBC/BMP: 02/13/17 0645 02/13/17 0645 Significant Findings Laboratory Tests Test 02/11/17 02/11/17 02/11/17 02/12/17 05:50 11:15 18:25 05:05 Carbon Dioxide Level 35.3 MEQ/L 33.5 MEQ/L (21.0-32.0) (21.0-32.0) Blood Urea Nitrogen 20 MG/DL (7-18) 23 MG/DL (7-18) Random Glucose 178 MG/DL 179 MG/DL (74-106) (74-106) Carcinoembryonic Antigen 5.3 NG/ML (0.2-5.0) CA 19-9 Antigen 98.1 U/ML (0.0-35.0) Blood Gas HCO3 32 mmol/L (22-26) Blood Gas Base Excess 7.7 mmol/L (-2-2) Arterial Blood pH 7.46 (7.380-7.420) Arterial Blood Partial 46 mmHg (38-42) Pressure CO2 Arterial Blood Oxygen Content 20.3 Vol % (12.0-20.0) White Blood Count 12.0 TH/MM3 (4.0-11.0) Test 02/13/17 06:45 White Blood Count 12.3 TH/MM3 (4.0-11.0) Carbon Dioxide Level 32.7 MEQ/L (21.0-32.0) Blood Urea Nitrogen 22 MG/DL (7-18) Random Glucose 139 MG/DL (74-106) Imaging Last Impressions Chest CT 02/13/17 0000 Signed Impressions: Service Date/Time: Monday, February 13, 2017 10:42 - CONCLUSION: 1. COPD with bullous emphysema and chronic interstitial lung changes. No acute pulmonary infiltrates. 2. Linear atelectasis versus scarring lingula segment. 3. Diffuse mediastinal adenopathy suspicious for neoplastic disease. Recommend PET CT for further evaluation. Guille Flores MD Brain MRI 02/12/17 0000 Signed Impressions: Service Date/Time: Sunday, February 12, 2017 18:59 - CONCLUSION: No evidence of metastatic disease. Paul Green MD Chest X-Ray 02/11/17 0000 Signed Impressions: Service Date/Time: January 09:38 - CONCLUSION: 1. COPD with chronic interstitial disease. 2. Consolidation or atelectasis in the medial left lung base. There is also some minimal patchy consolidation or atelectasis in the upper lungs. Abhinav Giles MD Liver Biopsy CT 02/10/17 0000 Signed Impressions: Service Date/Time: Friday, February 10, 2017 14:46 - CONCLUSION: Uncomplicated CT guided biopsy of the lesion right lobe of the liver suspicious for metastatic disease. Fred Vieyra MD FACR Abdomen MRI 02/09/17 0000 Signed Impressions: Service Date/Time: Thursday, February 09, 2017 20:22 - CONCLUSION: 1. 2 hepatic masses of concern for metastatic disease especially in light of the mediastinal and hilar adenopathy. The lesions also appear new from the prior study. 2. Dilatation the common bile duct with no evidence of cholelithiasis or filling defect. Paul Green MD Abdomen/Pelvis CT 02/06/17 0000 Signed Impressions: Service Date/Time: Monday, February 06, 2017 17:14 - CONCLUSION: 1. Liver masses as above, one centrally in the left hepatic lobe and a slightly smaller one inferiorly in the right hepatic lobe. These are not typical of cysts, hemangiomas or other definite benign structures. Additionally, the left hepatic lobe lesion is not convincingly present on the CT pulmonary angiogram done in December of 2015. Malignancy needs to be excluded. The right hepatic lobe lesion may be amenable to percutaneous needle biopsy. 2. Intrahepatic and extrahepatic biliary distention of unclear etiology but I believe not changed from December 2015.. Still, please correlate clinically and with any laboratory evidence of biliary obstruction. 3. 12 mm gallstone, probably impacted in the neck. However , no inflammatory changes are seen. Abhinav Turner MD Liver Ultrasound 02/05/17 0000 Signed Impressions: Service Date/Time: Sunday, February 05, 2017 19:51 - CONCLUSION: 1. Fatty liver and study suggests sizable solid lesion in the left hepatic lobe. This is apparently new. A contrast-enhanced CT or MRI of the abdomen is recommended. 2. Stone in a contracted gallbladder. No evidence of cholecystitis or biliary obstruction. Abhinav Turner MD PE at Discharge GENERAL: NAD SKIN: Warm and dry. HEAD: Normocephalic. EYES: No scleral icterus. No injection or drainage. NECK: Supple, trachea midline. No JVD or lymphadenopathy. CARDIOVASCULAR: Regular rate and rhythm without murmurs, gallops, or rubs. RESPIRATORY: Breath sounds equal bilaterally. No accessory muscle use. GASTROINTESTINAL: Abdomen soft, non-tender, nondistended. MUSCULOSKELETAL: No cyanosis, or edema. BACK: Nontender without obvious deformity. No CVA tenderness. Hospital Course Patient was admitted secondary to respiratory failure and COPD exacerbation for which [facility] medicine was consulted and treated with bronchodilator, steroid and oxygen saturation was maintained above 92%. She was found to have a mass on her liver for which CT-guided liver biopsy was performed however the pathology positive for small cell carcinoma for which oncology was consulted. Patient was started on treatment for diabetes type 2. She was continued on treatment for other chronic medical conditions. Patient was discharged with follow-up with oncology as she would be needed palliative chemotherapy. Pt Condition on Discharge: Fair Discharge Disposition: Discharge Home Discharge Time: > 30 minutes Discharge Instructions DIET: Follow Instructions for: Diabetic Diet Activities you can perform: Regular-No Restrictions Follow up Referrals: Oncology PCP Follow-up - 1 Week New Medications: Accu-Chek Jalyn Glucose Monitor (Accu-Chek Jalyn Glucose Monitor) 1 Mis Mis 1 KIT .ROUTE DIRECTED Blood Sugar Management #1 Ref 0 KIT Atorvastatin (Lipitor) 20 Mg Tab 20 MG PO HS Cholesterol Management #30 Ref 0 TAB Azithromycin (Azithromycin) 250 Mg Tab 250 MG PO DAILY Infection #3 Ref 0 TAB Glucocom Test Strips (Glucocom Test Strips) 1 Radha Radha 1 EA .ROUTE DIRECTED Blood Sugar Management #100 BOX Insulin Syringe/Needle U-100 (Advocate Insulin Syringe/ 30G X 5/16" 1 ml) 1 Mis Mis UNITS #100 Ipratropium HFA 12.9 GM Inh (Atrovent HFA 12.9 GM Inh) 17 Mcg/Act Aer 2 PUFF INH QID Breathing Treatment #1 Ref 0 INHALER Metformin (Metformin) 500 Mg Tab 500 MG PO BIDPC With meals Blood Sugar Management #60 Ref 0 TAB Prednisone (21) 10 mg tab Dose Pack (Prednisone (21) 10 mg tab Dose Pack) 10 Mg Pack 10 MG PO DIRECTED Inflammation #1 Ref 0 DSPK Tiotropium Inh (Spiriva Handihaler) 18 Mcg Cap 18 MCG INH DAILY 1 capsule = 18 mcg COPD #30 Ref 0 CAP Diltiazem (Cardizem) 60 Mg Tab 60 MG PO QID Regulate Heart Beat #120 TAB Continued Medications: Sertraline (Zoloft) Unknown Strength Tab Unknown Dose PO DAILY #30 Ref 0 TAB ([Bp Med]) 0 Discontinued Medications: Albuterol 8.5 GM Inh (Proair Hfa 8.5 GM Inh) 90 Mcg/Act Aer 2 PUFF INH Q4-6H 108 mcg/actuation PRN SHORTNESS OF BREATH #1 Ref 0 INHALER Diltiazem CD 24 HR (Cardizem CD 24 HR) 120 Mg Caper 120 MG PO DAILY Blood Pressure Management #30 Ref 0 CAP Fluticasone-Salmeterol Inh (Advair Diskus Inh) 250-50 Mcg/Blist Aer 1 PUFF INH BID Rinse mouth after use. #1 Ref 0 INHALER Ipratropium-Albuterol Neb (Duoneb) 0.5-2.5 Mg/3 Ml Neb 1 NEBULE INH Q4HR NEB Breathing Treatment #180 Ref 0 NEBULE Levofloxacin (Levaquin) 750 Mg Tab 750 MG PO Q24H Infection Days 5 TAB Methylprednisolone Dosepak (Medrol Dosepak) 4 Mg Dspk 4 MG PO DIRECTED Per Pharmacist direction #1 Ref 0 DSPK Sal Loza MD Feb 13, 2017 17:24
[2017-02-13] MEDS ORDERED: BLOO1MIS29 (17:30)
[2017-02-13] MEDS ORDERED: INSU1MIS36 (17:30)
[2017-02-13] MEDS ORDERED: GLUCTES12 (17:30)
[2017-04-29] MEDS ORDERED: IPRA17I INH (12:58)
[2017-04-29] MEDS ORDERED: MIRTA15 PO (12:58)
[2017-04-29] MEDS ORDERED: PRED20 PO (12:58)
[2017-04-29] MEDS ORDERED: SYMB160A INH (12:58)
[2017-04-29] MEDS ORDERED: GNP5TAB6 PO (12:58)
[2017-04-29] MEDS ORDERED: PANT40TA3 PO (12:58)
[2017-04-29] MEDS ORDERED: LIPI20TA PO (12:58)
[2017-04-29] MEDS ORDERED: CARD180C5 PO (12:58)
[2017-04-29] MEDS ORDERED: SPIRCAP INH (12:58)
[2017-04-29] MEDS ORDERED: METO25TA3 PO (12:58)
[2017-04-29] MEDS ORDERED: CLON.5 PO (12:58)
[2017-04-29] MEDS ORDERED: DOCU1CAP39 PO (12:58)
== END 2017-02-13 18:26 | disposition home or self-care (01) | DRG 208 ==
LOC: NEPC 00:46 → NEDA 02:30 → HIMN 03:15 → N04A 02-10 23:40
PROVIDERS: ADMIT Hospitalist; ATTEND Hospitalist
PROC: 5A1945Z Respiratory Ventilation, 24-96 Consecutive Hours (ICD-10-PCS; principal; 2017-02-05)
PROC: 0BH17EZ Insertion of Endotracheal Airway into Trachea, Via Natural or Artificial Opening (ICD-10-PCS; 2017-02-05)
PROC: 0FB13ZX Excision of Right Lobe Liver, Percutaneous Approach, Diagnostic (ICD-10-PCS; 2017-02-10)
DX: J96.22 Acute and chronic respiratory failure with hypercapnia (principal); E44.0 Moderate protein-calorie malnutrition; J44.1 Chronic obstructive pulmonary disease with (acute) exacerbation; E87.2 Acidosis; C78.7 Secondary malignant neoplasm of liver and intrahepatic bile duct; C77.1 Secondary and unspecified malignant neoplasm of intrathoracic lymph nodes; C34.01 Malignant neoplasm of right main bronchus; I48.92 Unspecified atrial flutter; E11.65 Type 2 diabetes mellitus with hyperglycemia; I95.9 Hypotension, unspecified; E86.0 Dehydration; I48.2 Chronic atrial fibrillation; J96.21 Acute and chronic respiratory failure with hypoxia; I10 Essential (primary) hypertension; R16.0 Hepatomegaly, not elsewhere classified; K80.20 Calculus of gallbladder without cholecystitis without obstruction; F17.210 Nicotine dependence, cigarettes, uncomplicated; F32.9 Major depressive disorder, single episode, unspecified; F39 Unspecified mood [affective] disorder; F41.1 Generalized anxiety disorder; T38.0X5A Adverse effect of glucocorticoids and synthetic analogues, initial encounter; Z68.26 Body mass index [BMI] 26.0-26.9, adult
CPT/HCPCS: 31500; 36600; 47000; 51702; 70553; 71010; 71020; 71260; 74178; 74183; 76705; 76937; 77012; 80048; 80053; 80061; 81001; 82105; 82378; 82550; 82805; 82948; 83036; 83605; 83735; 83880; 84100; 84484; 85007; 85025; 85027; 85610; 85730; 86301; 87040; 87070; 87205; 87641; 88307; 88341; 88342; 93005; 93306; 94002; 94003; 94150; 94640; 94664; 94667; 94668; 96361; 96365; 96374; 96375; A9579; J0330; J1160; J1644; J1956; J2250; J2920; J2930; J3010; J7030; J7040; Q9967

== ENCOUNTER 2017-02-14 23:14 | Emergency (ER) | payer MEDICARE, MEDICAID ==
[~2017-02-14 23:14] MED LIST changes: -ADVA250A INH; -ALBUAER3 INH; +AZIT250T3 PO; +BLOO1MIS29; -CARD120C4 PO; +DILT60TA33 PO; +GLUCTES12; +INSU1MIS36; +IPRA17I INH; -IPRASOL INH; -LEVA750T PO; +LIPI20TA PO; -MEDR4PAK PO; +METF500T PO; +PRED10PA PO; +SPIRCAP INH; +ZOLO25TA PO
[2017-02-14 23:15] VITALS: BP 117/85; PULSE 150; RESP 28; O2SAT 96
[2017-02-14] MEDS ORDERED: DILTIAZEM HCL 25 MG/5 ML VIAL IV ONE (23:30)
[2017-02-14] MEDS ORDERED: SODIUM CHLORIDE 0.9% FLUSH 5 ML FLUSH IVF PRN (23:30)
--- NOTE | 2017-02-14 23:38 | PD ---
HPI Chief Complaint: Cardiac Complaint Time Seen by Provider: 23:27 Travel History International Travel<30 days: No Contact w/Intl Traveler<30days: No Traveled to known affect area: No History of Present Illness HPI The patient is a 51-year-old female with a history of tachycardia and who was just released from the hospital with an admission for a tachycardia who comes in complaining of tachycardia. The patient is supposed to be on Cardizem 60 mg 4 times daily. She did not take her Cardizem today because she could not find a ride to the pharmacy. Instead, she comes in with her sister complaining of tachycardia. She denies any chest pain but does have some slight shortness of breath. PFSH Past Medical History Anxiety: Yes (LAST ANXIETY ATTACK WAS IN 2000.) Depression: No Cancer: No High Cholesterol: No Congestive Heart Failure: No COPD: Yes Coronary Artery Disease: No Diabetes: No Diminished Hearing: No Endocrine: No Genitourinary: Yes Hypertension: Yes Immune Disorder: No Kidney Stones: Yes (AT AGE 15.) Musculoskeletal: No Neurologic: No Psychiatric: Yes Reproductive: No Respiratory: Yes Immunizations Current: No Thyroid Disease: No Menopausal: Yes : 9 Para: 4 Miscarriage: 5 Dilation and Curettage (D&C): Yes Tubal Ligation: Yes Past Surgical History Gynecologic Surgery: Yes (TUBES TIED.) Other Surgery: Yes (HAND SURGERY ) Social History Alcohol Use: Yes (RARELY) Tobacco Use: Yes (1/2 PPD) Substance Use: No Allergies-Medications (Allergen,Severity, Reaction): Coded Allergies: Valium (Verified Allergy, Severe, HIVES, 02/14/17) *MDRO Multi-Drug Resistant Organism (Verified Adverse Reaction, Unknown, ) MRSA PCR Screen POSITIVE - 03/19/2016 Reported Meds & Prescriptions Reported Meds & Active Scripts Active Metformin (Metformin HCl) 500 Mg Tab 500 Mg PO BIDPC With meals Lipitor (Atorvastatin Calcium) 20 Mg Tab 20 Mg PO HS Prednisone (21) 10 mg tab Dose Pack (Prednisone) 10 Mg Pack 10 Mg PO DIRECTED Azithromycin 250 Mg Tab 250 Mg PO DAILY Atrovent HFA 12.9 GM Inh (Ipratropium [place]) 17 Mcg/Act Aer 2 Puff INH QID Spiriva Handihaler (Tiotropium Inh) 18 Mcg Cap 18 Mcg INH DAILY 1 capsule = 18 mcg Cardizem (Diltiazem HCl) 60 Mg Tab 60 Mg PO QID Reported [Bp Med] 0 Review of Systems Except as stated in HPI: all other systems reviewed are Neg Physical Exam Narrative GENERAL: The patient is alert, oriented 3 in slight respiratory distress. Her vital signs show a heart rate of 143 day sinus tachycardia. SKIN: Warm and dry. HEAD: Atraumatic. Normocephalic. EYES: Pupils equal and round. No scleral icterus. No injection or drainage. ENT: No nasal bleeding or discharge. Mucous membranes pink and moist. NECK: Trachea midline. No JVD. CARDIOVASCULAR: Regular rate and rhythm. No murmur appreciated. RESPIRATORY: No accessory muscle use. Clear to auscultation. Breath sounds equal bilaterally. GASTROINTESTINAL: Abdomen soft, non-tender, nondistended. Hepatic and splenic margins not palpable. MUSCULOSKELETAL: No obvious deformities. No clubbing. No cyanosis. No edema. NEUROLOGICAL: Awake and alert. No obvious cranial nerve deficits. Motor grossly within normal limits. Normal speech. PSYCHIATRIC: Appropriate mood and affect; insight and judgment normal. Data Data Last Documented VS Vital Signs Date Time Temp Pulse Resp B/P Pulse Ox O2 Delivery O2 Flow Rate FiO2 02/15/17 00:34 108 98 Nasal Cannula 2 02/14/17 23:58 20 02/14/17 23:52 132/92 Orders Electrocardiogram (02/14/17 23:28) B-Type Natriuretic Peptide (02/14/17 23:28) Ckmb (Isoenzyme) Profile (02/14/17 23:28) Complete Blood Count With Diff (02/14/17 23:28) Comprehensive Metabolic Panel (02/14/17 23:28) Magnesium (Mg) (02/14/17 23:28) Troponin I (02/14/17 23:28) Ecg Monitoring (02/14/17 23:28) Iv Access Insert/Monitor (02/14/17 23:28) Oximetry (02/14/17 23:28) Oxygen Administration (02/14/17 23:28) Sodium Chloride 0.9% Flush (Ns Flush) (02/14/17 23:30) Chest, Pa & Lat (02/14/17 23:28) Diltiazem Inj (Cardizem Inj) (02/14/17 23:30) Diltiazem Inj (Cardizem Inj) (02/15/17 00:15) Labs Laboratory Tests Test 02/14/17 23:32 White Blood Count 16.3 TH/MM3 Red Blood Count 6.05 MIL/MM3 Hemoglobin 16.7 GM/DL Hematocrit 52.0 % Mean Corpuscular Volume 85.9 FL Mean Corpuscular Hemoglobin 27.7 PG Mean Corpuscular Hemoglobin 32.2 % Concent Red Cell Distribution Width 13.9 % Platelet Count 260 TH/MM3 Mean Platelet Volume 9.3 FL Neutrophils (%) (Auto) 78.7 % Lymphocytes (%) (Auto) 10.3 % Monocytes (%) (Auto) 5.2 % Eosinophils (%) (Auto) 0.9 % Basophils (%) (Auto) 4.9 % Neutrophils # (Auto) 12.9 TH/MM3 Lymphocytes # (Auto) 1.7 TH/MM3 Monocytes # (Auto) 0.8 TH/MM3 Eosinophils # (Auto) 0.1 TH/MM3 Basophils # (Auto) 0.8 TH/MM3 CBC Comment AUTO DIFF Differential Comment AUTO DIFF CONFIRMED Platelet Estimate NORMAL Platelet Morphology Comment NORMAL Red Cell Morphology Comment NORMAL Sodium Level 142 MEQ/L Potassium Level 4.0 MEQ/L Chloride Level 101 MEQ/L Carbon Dioxide Level 31.9 MEQ/L Anion Gap 9 MEQ/L Blood Urea Nitrogen 17 MG/DL Creatinine 0.71 MG/DL Estimat Glomerular Filtration 87 ML/MIN Rate Random Glucose 124 MG/DL Calcium Level 8.7 MG/DL Magnesium Level 2.2 MG/DL Total Bilirubin 0.6 MG/DL Aspartate Amino Transf 19 U/L (AST/SGOT) Alanine Aminotransferase 35 U/L (ALT/SGPT) Alkaline Phosphatase 73 U/L Total Creatine Kinase 85 U/L Troponin I 0.09 NG/ML B-Type Natriuretic Peptide 69 PG/ML Total Protein 6.4 GM/DL Albumin 3.3 GM/DL [facility] Medical Decision Making Medical Screen Exam Complete: Yes Emergency Medical Condition: Yes Medical Record Reviewed: Yes Differential Diagnosis Tachycardia because of: Noncompliance to medications, electrolyte imbalance, acute myocardial infarction, congestive heart failure Narrative Course It is now 12:57 PM and the patient has a blood pressure 127/85 and a heart rate is 103. The patient will be given another dose of Cardizem IV 60 mg of Cardizem by mouth to be taken later on this morning at about 0600. She will then refill her Cardizem prescription so she can take her medications correctly. Diagnosis Primary Impression: Sinus tachycardia Additional Impression: Noncompliance with medications Additional Instructions: Take the 60 mg Cardizem tablet later on this morning at approximately 0600. Fill your prescription for Cardizem tablets this morning. Follow-up with a primary care physician this week. Disposition: 01 DISCHARGE HOME Condition: Stable Armando Singh MD Feb 14, 2017 23:38
[2017-02-14 23:44] LABS: AUTOMATED NEUTROPHIL # 12.9 TH/MM3 (1.8-7.7); BASOPHIL # 0.8 TH/MM3 (0-0.2); BASOPHIL % 4.9 % (0.0-2.0); EOSINOPHIL # 0.1 TH/MM3 (0-0.4); EOSINOPHIL % 0.9 % (0.0-4.0); LYMPH % 10.3 % (9.0-44.0); LYMPHOCYTE # 1.7 TH/MM3 (1.0-4.8); MEAN CELL VOLUME 85.9 FL (80.0-100.0); MEAN CORPUSCULAR HEMOGLOBIN 27.7 PG (27.0-34.0); MEAN CORPUSCULAR HGB CONC 32.2 % (32.0-36.0); MONO % 5.2 % (0.0-8.0); NEUT % 78.7 % (16.0-70.0); PLATELET COUNT 260 TH/MM3 (150-450); RED BLOOD COUNT 6.05 MIL/MM3 (4.00-5.30); RED CELL DISTRIBUTION WIDTH 13.9 % (11.6-17.2); WHITE BLOOD COUNT 16.3 TH/MM3 (4.0-11.0)
[2017-02-14 23:48] VITALS: O2SAT 98
[2017-02-14 23:51] LABS: CHLORIDE 101 MEQ/L (98-107); SODIUM (NA) 142 MEQ/L (136-145)
[2017-02-14 23:52] VITALS: BP 132/92; PULSE 115; RESP 20; O2SAT 98
[2017-02-14 23:54] LABS: HEMO FLAGS AUTO DIFF
[2017-02-14 23:55] LABS: ANION GAP 9 MEQ/L (5-15); BICARBONATE 31.9 MEQ/L (21.0-32.0); BLOOD UREA NITROGEN 17 MG/DL (7-18); MAGNESIUM 2.2 MG/DL (1.5-2.5)
--- NOTE | 2017-02-14 23:56 | RADHPO ---
EXAM DATE/TIME: 02/14/2017 23:31 [facility] COMPARISON: CHEST PA & LAT, February 11, 2017, 9:38. INDICATIONS : Short of breath. MEDICAL HISTORY : Chronic obstructive pulmonary disease. Hypertension SURGICAL HISTORY : None. ENCOUNTER: Initial ACUITY: 1 day PAIN SCORE: 0/10 LOCATION: Bilateral chest FINDINGS: Hyperinflation is noted. No consolidation or effusion. Heart size is normal. Osseous structures are i ntact. CONCLUSION: Hyperinflation. Andrei Lopez MD on February 14, 2017 at 23:54 Board Certified Radiologist. This report was verified electronically.
[2017-02-14 23:58] LABS: ALT (GPT) 35 U/L (10-53); AST (GOT) 19 U/L (15-37); GLOMERULAR FILTRATION RATE 87 ML/MIN (>89)
[2017-02-15] LABS: TOTAL BILIRUBIN ADULT 0.6 MG/DL (0.2-1.0)
[2017-02-15 00:01] LABS: ALKALINE PHOSPHATASE 73 U/L (45-117)
[2017-02-15 00:05] LABS: CREATINE KINASE 85 U/L (26-192)
[2017-02-15] MEDS ORDERED: DILTIAZEM HCL 25 MG/5 ML VIAL IV ONE ×2 (00:15→01:15)
[2017-02-15 00:23] LABS: PLATELET ESTIMATE SMEAR NORMAL (NORMAL); PLATELET MORPHOLOGY NORMAL (NORMAL); SCAN/DIFF AUTO DIFF CONFIRMED
[2017-02-15 00:34] VITALS: PULSE 108; O2SAT 98
[2017-02-15 01:11] VITALS: BP 127/85; PULSE 106; RESP 20; O2SAT 99
[2017-02-15] MEDS ORDERED: DILTIAZEM HCL 60 MG TAB PO ONE (01:15)
--- NOTE | 2017-02-15 14:39 | EKG ---
Date Performed: 02/14/2017 Time Performed: 23:18:12 PTAGE: 51 years EKG: Sinus tachycardia with sinus arrhythmia. Septal T wave changes are nonspecific Borderline E CG PREVIOUS TRACING : 02/05/2017 07.35 Compared to the previous tracing, Atrial fibrillation is no longer present DOCTOR: Miguel Light Interpretating Date/Time 02/15/2017 14:38:44
[2017-04-29] MEDS ORDERED: CLON.5 PO (12:58)
[2017-04-29] MEDS ORDERED: CARD180C5 PO (12:58)
[2017-04-29] MEDS ORDERED: GNP5TAB6 PO (12:58)
[2017-04-29] MEDS ORDERED: DOCU1CAP39 PO (12:58)
[2017-04-29] MEDS ORDERED: PANT40TA3 PO (12:58)
[2017-04-29] MEDS ORDERED: LIPI20TA PO (12:58)
[2017-04-29] MEDS ORDERED: METO25TA3 PO (12:58)
[2017-04-29] MEDS ORDERED: SPIRCAP INH (12:58)
[2017-04-29] MEDS ORDERED: PRED20 PO (12:58)
[2017-04-29] MEDS ORDERED: SYMB160A INH (12:58)
[2017-04-29] MEDS ORDERED: MIRTA15 PO (12:58)
[2017-04-29] MEDS ORDERED: IPRA17I INH (12:58)
== END 2017-02-15 01:33 | disposition home or self-care (01) ==
LOC: PHED 23:14
DX: R00.0 Tachycardia, unspecified (principal); R06.02 Shortness of breath; R94.31 Abnormal electrocardiogram [ECG] [EKG]; I10 Essential (primary) hypertension; F17.200 Nicotine dependence, unspecified, uncomplicated; Z91.14 Patient's other noncompliance with medication regimen; Z86.59 Personal history of other mental and behavioral disorders; Z87.09 Personal history of other diseases of the respiratory system; Z87.448 Personal history of other diseases of urinary system
CPT/HCPCS: 71020; 80053; 82550; 83735; 83880; 84484; 85025; 93005; 96374; 96376

== ENCOUNTER 2017-03-04 06:56 | Day surgery (SDC) | payer MEDICARE, MEDICAID ==
[~2017-03-04] VITALS: Ht 170.2 cm; Wt 74.1 kg
[~2017-03-04 06:56] MED LIST changes: -BLOO1MIS29; -GLUCTES12; -INSU1MIS36; -ZOLO25TA PO
[2017-03-04 07:15] VITALS: BP 138/82; PULSE 110; RESP 20; TEMP 97.3; O2SAT 93
[2017-03-04] MEDS ORDERED: POVIDONE IODINE 5% (ANTISEPSIS KIT) 4 APPLICATIONS EACH NARE SCH (07:30)
[2017-03-04] MEDS ORDERED: SODIUM CHLORIDE 0.9% 1000 ML IV SCH (07:30)
[2017-03-04] MEDS ORDERED: VANCOMYCIN 1000 MG/NS 250 ML - implanted port/tunneled catheter IV SCH ×2 (07:30)
[2017-03-04] MEDS ORDERED: CHLORHEXIDINE GLUCONATE 2 % 1 PACK (2 CLOTHS) TOPICAL SCH (07:30)
[2017-03-04] MEDS ORDERED: ceFAZolin 2 GM PREMIX 50 ML - implanted port/tunneled catheter insertion IV SCH (07:30)
[2017-03-04] MEDS ORDERED: CART120C PO (07:30)
[2017-03-04] MEDS ORDERED: RESP: ALBUTEROL 2.5 MG/3 ML NEB (SCH) INH ONE ×2 (09:15→12:30)
[2017-03-04] MEDS ORDERED: MIDAZOLAM HCL 5 MG/5 ML VIAL ONE (09:56)
[2017-03-04] MEDS ORDERED: fentaNYL CITRATE 250 MCG/5 ML AMP ONE (09:56)
[2017-03-04] MEDS ORDERED: LIDOCAINE 1%/EPINEPHrine 1:100,000 SOLN 20 ML VIAL ONE (10:05)
[2017-03-04 11:05] VITALS: BP 145/83; PULSE 111; RESP 20; TEMP 97.9; O2SAT 93
[2017-03-04 11:20] VITALS: BP 142/89; PULSE 103; RESP 18; O2SAT 95
[2017-03-04] MEDS ORDERED: SODIUM CHLORIDE 0.9% FLUSH 10 ML FLUSH IVF PRN (11:30)
[2017-03-04 11:50] VITALS: BP 136/83; PULSE 105; RESP 18; O2SAT 97
--- NOTE | 2017-03-04 12:05 | PD.RAD ---
Post Procedure Progress Note Pre Procedure Diagnosis: (1) Liver mass (2) SCLC (small cell lung carcinoma) Post Procedure Diagnosis: (1) SCLC (small cell lung carcinoma) (2) Liver mass Procedure Date: Mar 04, 2017 Supervising Radiologist: Jose Milligan Proceduralist/Assist: Hannah Rg, RT(R), France Wilder RT(R)() Anesthesia: Local, Analgesia, Conscious Sedation Plan of Activity Patient to Unit: ROPU Patient Condition: Good See PACS Report for procedural detail/treatment Central Venous Access Device Procedure 1 Right Internal Jugular Infusaport Placement single lumen Ukrainian: 8 Jose Milligan MD Mar 04, 2017 12:05
[2017-03-04 12:20] VITALS: BP 123/80; PULSE 101; RESP 22; O2SAT 97
--- NOTE | 2017-03-05 11:08 | RADRPT ---
EXAM DATE/TIME: 03/04/2017 10:05 [facility] COMPARISON: No previous studies available for comparison. INDICATIONS : Patient with liver, bileduct, and lymph cancer in need of port placement. MEDICAL HISTORY : Afib IN CHF COPD Emphysema Hx of kidney stones HTN Diabetes PAD SURGICAL HISTORY : D & C Hand Tubal ENCOUNTER: Initial ACUITY: 3 weeks PAIN SCORE: 2/10 LOCATION: right rib area FLUORO TIME: 0.4 minutes IMAGE SERIES: 1 SEDATION TIME: 30 minutes ACCESS: Right internal jugular vein SEDATION: 1.) 5 mg midazolam (Versed) IV 2.) 250 mcg fentanyl (Sublimaze) IV Prophylactic antibiotics were administered with appropriate pre-procedure timing. Vancomycin within 2 hours of procedure, Ancef (or alternative) within 1 hour of procedure. DEVICE: 1. 8 Ch[place] single lumen [id number] PROCEDURE : 1. Continuous pulse oximetry and EKG monitoring. 2. Intravenous conscious sedation. 3. Ultrasound guidance for venous access. 4. Fluoroscopic guided implantable central venous port placement. The patient was placed supine. The neck was prepped in sterile fashion. Full sterile technique was u sed, including cap, mask, sterile gloves and gown, and a large sterile sheet. Hand hygiene and 2% ch lorhexidine Betadine was utilized per protocol for cutaneous antisepsis with appropriate dry time for site. The skin and subcutaneous tissues were infiltrated with local anesthetic solution. Under direct ultrasound guidance, central venous access was accomplished in the targeted vessel. The ultrasound images depicting access guidance were stored and saved to PACS for permanent record. A s ubcutaneous pocket was created using blunt dissection. The port was introduced to the pocket. The c atheter tubing was fed through a subcutaneous tunnel to the venotomy site. The catheter tubing was c ut to a suitable length and then was introduced through a valved Peel-Away sheath and positioned with catheter tubing tip at the cavo-atrial junction level. The pocket incision was closed with subcutic ular Vicryl suture. Steri-Strips were applied. The port was flushed and locked with heparin solutio n per protocol. Sterile dressing was applied to the site. The patient tolerated the procedure well. Conscious sedation was performed with the prescribed dosages and duration as above in the presence of an independent trained radiology nurse to assist in the monitoring of the patient. EKG and oximetry remained stable throughout the procedure. The patient tolerated the procedure well and there were no complications. The patient was sent to post anesthesia recovery in stable condition. CONCLUSION: Uncomplicated ultrasound and fluoroscopic guided implanted central venous port catheter placement as described in detail above. An 8 Chadian Power port was placed. Jose Milligan MD on March 05, 2017 at 11:06 Board Certified Radiologist. This report was verified electronically.
[2017-04-29] MEDS ORDERED: SYMB160A INH (12:58)
[2017-04-29] MEDS ORDERED: PRED20 PO (12:58)
[2017-04-29] MEDS ORDERED: CLON.5 PO (12:58)
[2017-04-29] MEDS ORDERED: GNP5TAB6 PO (12:58)
[2017-04-29] MEDS ORDERED: IPRA17I INH (12:58)
[2017-04-29] MEDS ORDERED: SPIRCAP INH (12:58)
[2017-04-29] MEDS ORDERED: DOCU1CAP39 PO (12:58)
[2017-04-29] MEDS ORDERED: METO25TA3 PO (12:58)
[2017-04-29] MEDS ORDERED: LIPI20TA PO (12:58)
[2017-04-29] MEDS ORDERED: MIRTA15 PO (12:58)
[2017-04-29] MEDS ORDERED: PANT40TA3 PO (12:58)
[2017-04-29] MEDS ORDERED: CARD180C5 PO (12:58)
== END 2017-03-04 13:03 | disposition home or self-care (01) ==
LOC: HROP 06:56 → HRIP 06:59 → HROP 13:03
PROVIDERS: ATTEND Internal Medicine Hematology & Oncology
DX: C34.90 Malignant neoplasm of unspecified part of unspecified bronchus or lung (principal); C78.7 Secondary malignant neoplasm of liver and intrahepatic bile duct
CPT/HCPCS: 36561; 76937; 77001; 94664; 99152; 99153; C1788; J0690; J1642; J2250; J3010; J3370; J7030; J7050; J7613

== ENCOUNTER 2017-03-11 07:04 | Inpatient (IN) | payer MEDICARE, MEDICAID ==
[~2017-03-11] VITALS: Ht 170.2 cm; Wt 74.8 kg
[2017-03-11] VITALS (15 sets, daily range): BP systolic 114–201; BP diastolic 68–111; PULSE 92–125; RESP 18–26; TEMP 97.7–98.2; O2SAT 95–99
[~2017-03-11 07:04] MED LIST changes: -AZIT250T3 PO; +CART120C PO; -METF500T PO; -PRED10PA PO
--- NOTE | 2017-03-11 07:16 | PD ---
HPI Chief Complaint: shortness of breath Time Seen by Provider: 07:09 Travel History International Travel<30 days: No Contact w/Intl Traveler<30days: No History of Present Illness HPI This is a 51 year old female who has a history of COPD and small cell lung cancer who presents to the emergency department with increasing shortness of breath it's been present over the past 2 days, constant, moderate severity with no associated fevers or chills. She has not had a productive cough. She says this feels different from her COPD. She has had some chest discomfort over where her port was recently placed. She had chemotherapy yesterday. She came in because she's been checking her oxygen saturation and this morning her heart rate was up to 140 which concerned her. PFSH Past Medical History Anxiety: Yes (LAST ANXIETY ATTACK WAS IN 2000.) Depression: No Cancer: No Cardiovascular Problems: Yes (HTN, tachycardia) High Cholesterol: No Congestive Heart Failure: No COPD: Yes Coronary Artery Disease: No Diabetes: Yes Diminished Hearing: No Endocrine: No Genitourinary: Yes Hypertension: Yes Immune Disorder: No Implanted Vascular Access Dvce: No Kidney Stones: Yes (AT AGE 15.) Musculoskeletal: No Neurologic: No Psychiatric: Yes Reproductive: No Respiratory: Yes (copd, on home o2, inhalers) Immunizations Current: No Thyroid Disease: No Menopausal: Yes : 9 Para: 4 Miscarriage: 5 Dilation and Curettage (D&C): Yes Tubal Ligation: Yes Past Surgical History AICD: No Gynecologic Surgery: Yes (TUBES TIED.) Joint Replacement: No Pacemaker: No Other Surgery: Yes (HAND SURGERY ) Social History Alcohol Use: Yes (RARELY) Tobacco Use: Yes (1/2 PPD) Substance Use: No Allergies-Medications (Allergen,Severity, Reaction): Coded Allergies: Valium (Verified Allergy, Severe, HIVES, 03/11/17) *MDRO Multi-Drug Resistant Organism (Verified Adverse Reaction, Unknown, ) MRSA PCR Screen POSITIVE - 03/19/2016 Reported Meds & Prescriptions Reported Meds & Active Scripts Active Lipitor (Atorvastatin Calcium) 20 Mg Tab 20 Mg PO HS Atrovent HFA 12.9 GM Inh (Ipratropium [place]) 17 Mcg/Act Aer 2 Puff INH QID Spiriva Handihaler (Tiotropium Inh) 18 Mcg Cap 18 Mcg INH DAILY 1 capsule = 18 mcg Cardizem (Diltiazem HCl) 60 Mg Tab 60 Mg PO QID Review of Systems Except as stated in HPI: all other systems reviewed are Neg Physical Exam Narrative GENERAL: Moderate respiratory distress SKIN: Focused skin assessment warm and dry. HEAD: Atraumatic. Normocephalic. EYES: Pupils equal and round. No injection or drainage. ENT: Moist mucous membranes NECK: Trachea midline. CARDIOVASCULAR: Tachycardia. No murmur appreciated. RESPIRATORY: Poor air movement, tachypnea, diffuse wheezing GASTROINTESTINAL: Abdomen soft, non-tender, nondistended. MUSCULOSKELETAL: No obvious deformities. NEUROLOGICAL: Awake and alert. No obvious cranial nerve deficits. Moving all extremities.. PSYCHIATRIC: Appropriate mood and affect; insight and judgment normal. Data Data Last Documented VS Vital Signs Date Time Temp Pulse Resp B/P Pulse Ox O2 Delivery O2 Flow Rate FiO2 03/11/17 08:00 107 20 115/68 95 Nasal Cannula 2 03/11/17 07:10 97.7 Orders Complete Blood Count With Diff (03/11/17 07:17) Comprehensive Metabolic Panel (03/11/17 07:17) B-Type Natriuretic Peptide (03/11/17 07:17) Troponin I (03/11/17 07:17) Arterial Blood Gas (Abg) (03/11/17 07:17) Iv Access Insert/Monitor (03/11/17 07:17) Electrocardiogram (03/11/17 07:17) Ecg Monitoring (03/11/17 07:17) Oximetry (03/11/17 07:17) Oxygen Administration (03/11/17 07:17) Chest, Single Ap (03/11/17 07:17) Sodium Chloride 0.9% Flush (Ns Flush) (03/11/17 07:30) Albuterol Neb (Albuterol Neb) (03/11/17 07:30) Sodium Chlor 0.9% 1000 Ml Inj (Ns 1000 M (03/11/17 07:30) Diltiazem Inj (Cardizem Inj) (03/11/17 07:30) Ct Pulmonary Angiogram (03/11/17 ) Iohexol 350 Inj (Omnipaque 350 Inj) (03/11/17 08:53) Labs Laboratory Tests Test 03/11/17 03/11/17 07:30 07:40 Blood Gas Puncture Site RT RADIAL Blood Gas Patient Temperature 98.6 Blood Gas HCO3 31 mmol/L Blood Gas Base Excess 6.1 mmol/L Blood Gas Oxygen Saturation 93 % Arterial Blood pH 7.41 Arterial Blood Partial 50 mmHg Pressure CO2 Arterial Blood Partial 92 mmHG Pressure O2 Arterial Blood Oxygen Content 17.3 Vol % Arterial Blood 4.2 % Carboxyhemoglobin Arterial Blood Methemoglobin 0.6 % Blood Gas Hemoglobin 13.1 G/DL Oxygen Delivery Device NASAL CANNULA Blood Gas Liter Flow 2 L/M White Blood Count 5.7 TH/MM3 Red Blood Count 4.40 MIL/MM3 Hemoglobin 12.6 GM/DL Hematocrit 37.8 % Mean Corpuscular Volume 85.8 FL Mean Corpuscular Hemoglobin 28.7 PG Mean Corpuscular Hemoglobin 33.4 % Concent Red Cell Distribution Width 15.2 % Platelet Count 217 TH/MM3 Mean Platelet Volume 8.1 FL Neutrophils (%) (Auto) 66.3 % Lymphocytes (%) (Auto) 31.9 % Monocytes (%) (Auto) 0.8 % Eosinophils (%) (Auto) 0.6 % Basophils (%) (Auto) 0.4 % Neutrophils # (Auto) 3.8 TH/MM3 Lymphocytes # (Auto) 1.8 TH/MM3 Monocytes # (Auto) 0.0 TH/MM3 Eosinophils # (Auto) 0.0 TH/MM3 Basophils # (Auto) 0.0 TH/MM3 CBC Comment DIFF FINAL Differential Comment Sodium Level 140 MEQ/L Potassium Level 3.9 MEQ/L Chloride Level 103 MEQ/L Carbon Dioxide Level 30.2 MEQ/L Anion Gap 7 MEQ/L Blood Urea Nitrogen 10 MG/DL Creatinine 0.54 MG/DL Estimat Glomerular Filtration 119 ML/MIN Rate Random Glucose 102 MG/DL Calcium Level 8.9 MG/DL Total Bilirubin 0.4 MG/DL Aspartate Amino Transf 18 U/L (AST/SGOT) Alanine Aminotransferase 25 U/L (ALT/SGPT) Alkaline Phosphatase 98 U/L Troponin I 0.02 NG/ML B-Type Natriuretic Peptide 7 PG/ML Total Protein 6.2 GM/DL Albumin 3.0 GM/DL MDM Medical Decision Making Medical Screen Exam Complete: Yes Emergency Medical Condition: Yes Medical Record Reviewed: Yes (patient has small cell lung cancer and COPD, she was recently admitted in the intensive care unit for respiratory failure) Interpretation(s) Afebrile, tachycardic, normotensive EKG: Possible atrial flutter, heart rate 114 No leukocytosis Electrolytes are reassuring Troponin is normal BNP is normal ABG: chronic respiratory acidosis with metabolic compensation Last 24 hours Impressions Chest X-Ray 03/11/17 0717 Signed Impressions: Service Date/Time: February 07:44 - CONCLUSION: No acute cardiopulmonary abnormality is identified. Lung changes are suggestive of obstructive airways disease/emphysema. Abhinav Kraft MD CT Angiography 03/11/17 0000 Signed Impressions: Service Date/Time: February 08:35 - CONCLUSION: 1. No PE is identified. 2. Extensive mediastinal, bilateral hilar, and left supraclavicular lymphadenopathy, mildly increased from the prior studies. 3. The left lobe liver mass which represents metastatic small cell carcinoma has also mildly increased in size compared to the prior MRI. It currently measures 3.8 x 4.6 cm compared to 3.4 x 4.0 cm previously. 4. Severe emphysema with stable nodules in the left lobe. Consider attention to these at followup imaging. Abhinav Kraft MD Differential Diagnosis COPD exacerbation, atrial fibrillation with RVR, pneumonia, pulmonary embolism Narrative Course This is a 51-year-old female who presents to the emergency department with shortness of breath it's been present since yesterday. She just had chemotherapy yesterday. She is a history of small cell lung cancer and COPD as well as atrial fibrillation. She was placed on a monitor and an IV was established. Her heart rate was found to be in the 120s. She was given a single dose of IV Cardizem. She was given bronchodilators and received IV steroids with EMS. Labs were obtained which were reassuring. Chest x-ray was unremarkable and CT pulmonary angiotram was negative for PE. She feels much better. I don't think she requires admission at this time. She is on 2 L of oxygen at home and her oxygen saturation is 97%. I do think she is a component of anxiety contributing to her presentation. I did have a long conversation with her regarding inpatient versus outpatient management given her recent hospitalization in the ICU. She is agreeable to going home and she'll return if her symptoms worsen. She'll be discharged on prednisone and antibiotics. Diagnosis Primary Impression: Acute exacerbation of chronic obstructive pulmonary disease (COPD) Additional Impression: Atrial fibrillation and flutter Patient Instructions: General Instructions Additional Instructions: If you develop severe chest pain, shortness of breath, sweating, lightheadedness , dizziness or difficulty breathing return to the emergency department immediately. Followup with your primary care physician in 2-3 days if your symptoms are not resolved. Med/Other Pt SpecificInfo: Prescription(s) given Scripts Azithromycin 250 Mg Tom064 Mg PO DIRECTED #6 TAB Take 2 tabs (500 mg) on day 1 then 1 tab daily x 4 days. Prov:Jessica Quan MD 03/11/17 Prednisone 20 Mg Tab40 Mg PO DAILY 4 Days Prov:Jessica Quan MD 03/11/17 Disposition: 01 DISCHARGE HOME Condition: Stable Jessica Quan MD Mar 11, 2017 07:16
[2017-03-11] MEDS: RESP: ALBUTEROL 2.5 MG/3 ML NEB (SCH) INH (07:29)
[2017-03-11] MEDS ORDERED: SODIUM CHLORIDE 0.9% FLUSH 10 ML FLUSH IVF PRN (07:30)
[2017-03-11] MEDS ORDERED: SODIUM CHLOR 0.9% 1000 ML INJ 1,000 ML IV SCH (07:30)
[2017-03-11] MEDS ORDERED: DILTIAZEM HCL 25 MG/5 ML VIAL IV ONE ×2 (07:30→11:15)
[2017-03-11 07:40] LABS: BLOOD GAS BASE EXCESS 6.1 mmol/L (-2-2); BLOOD GAS CARBOXYHEMOGLOBIN 4.2 % (0-4); BLOOD GAS HCO3 31 mmol/L (22-26); BLOOD GAS METHEMOGLOBIN 0.6 % (0-2); BLOOD GAS O2 HGB SATURATION 93 % (90-100); BLOOD GAS OXYGEN CONTENT 17.3 Vol % (12.0-20.0); BLOOD GAS PCO2 50 mmHg (38-42); BLOOD GAS PO2 92 mmHG (61-120); BLOOD GAS TOTAL HGB 13.1 G/DL (12.0-16.0); CRITICAL VALUE NO; TEMP CORR TO 98.6
[2017-03-11 07:41] LABS: DRAW SITE RT RADIAL; LITER FLOW 2 L/M; NUMBER OF ARTERIAL PUNCTURES 1; OXYGEN DEVICE NASAL CANNULA; STAT YES; ULNAR PULSE PRESENT
[2017-03-11 07:54] LABS: AUTOMATED NEUTROPHIL # 3.8 TH/MM3 (1.8-7.7); BASOPHIL % 0.4 % (0.0-2.0); EOSINOPHIL % 0.6 % (0.0-4.0); HEMATOCRIT 37.8 % (35.0-46.0); HEMO FLAGS DIFF FINAL; LYMPH % 31.9 % (9.0-44.0); LYMPHOCYTE # 1.8 TH/MM3 (1.0-4.8); MEAN CELL VOLUME 85.8 FL (80.0-100.0); MEAN CORPUSCULAR HEMOGLOBIN 28.7 PG (27.0-34.0); MEAN CORPUSCULAR HGB CONC 33.4 % (32.0-36.0); MONO % 0.8 % (0.0-8.0); NEUT % 66.3 % (16.0-70.0); PLATELET COUNT 217 TH/MM3 (150-450); RED CELL DISTRIBUTION WIDTH 15.2 % (11.6-17.2); WHITE BLOOD COUNT 5.7 TH/MM3 (4.0-11.0)
[2017-03-11 08:15] LABS: ALT (GPT) 25 U/L (10-53); ANION GAP 7 MEQ/L (5-15); AST (GOT) 18 U/L (15-37); BICARBONATE 30.2 MEQ/L (21.0-32.0); BLOOD UREA NITROGEN 10 MG/DL (7-18); CHLORIDE 103 MEQ/L (98-107); GLOMERULAR FILTRATION RATE 119 ML/MIN (>89); POTASSIUM 3.9 MEQ/L (3.5-5.1); SODIUM (NA) 140 MEQ/L (136-145)
[2017-03-11 08:18] LABS: ALKALINE PHOSPHATASE 98 U/L (45-117); TOTAL BILIRUBIN ADULT 0.4 MG/DL (0.2-1.0)
--- NOTE | 2017-03-11 08:21 | RADRPT ---
EXAM DATE/TIME: 03/11/2017 07:44 [facility] COMPARISON: CHEST PA & LAT, February 14, 2017, 23:31. CHEST SINGLE AP, February 05, 2017, 1:19. INDICATIONS : Shortness of breath. MEDICAL HISTORY : Hypertension. Chronic obstructive pulmonary disease. Diabetes mellitus type II. Lung cancer. SURGICAL HISTORY : Port placement. ENCOUNTER: Initial ACUITY: 1 day PAIN SCORE: 0/10 LOCATION: Bilateral chest FINDINGS: 2 AP views of the chest demonstrate a normal-sized cardiac silhouette. Right chest wall [id number] is present with distal tip in the superior vena cava. Lungs are hyperinflated with lucency in the up per lung zones. There is mild atelectasis at the left lung base. There is likely an area of scar in t he lateral right upper lung zone that is stable. No effusion, consolidation, or pneumothorax is visua lized. The bones and soft tissues demonstrate no acute finding. CONCLUSION: No acute cardiopulmonary abnormality is identified. Lung changes are suggestive of obstructive airway s disease/emphysema. Abhinav Kraft MD on March 11, 2017 at 8:18 Board Certified Radiologist. This report was verified electronically.
[2017-03-11] MEDS ORDERED: IOHEXOL 350 MG/ML 10 ML VIAL (for RAD DIAG) IV ONE (08:53)
--- NOTE | 2017-03-11 09:16 | RADRPT ---
EXAM DATE/TIME: 03/11/2017 08:35 [place] COMPARISON: CT NEEDLE BIOPSY LIVER, February 10, 2017, 14:46. MRI ABDOMEN W & W/O CONTRAST, February 09, 2017, 20:22. CT THORAX W CONTRAST, February 13, 2017, 10:42. CT PULMONARY ANGIOGRAM, January 31, 2017, 10:07. INDICATIONS : Shortness of breath for two days. History of lung cancer. IV CONTRAST: 60 cc Omnipaque 350 (iohexol) IV RADIATION DOSE: 7.80 CTDIvol (mGy) MEDICAL HISTORY : Hypertension. Chronic obstructive pulmonary disease. Metastatic small cell carcinoma. Liabetes. SURGICAL HISTORY : Tubal ligation. ENCOUNTER: Initial ACUITY: 1 day PAIN SCALE: 3/10 LOCATION: Bilateral chest TECHNIQUE: Volumetric scanning of the chest was performed using a pulmonary embolism protocol MIP images were re constructed. Using automated exposure control and adjustment of the mA and/or kV according to patien t size, radiation dose was kept as low as reasonably achievable to obtain optimal diagnostic quality images. FINDINGS: PULMONARY ARTERIES: No filling defects are seen in the pulmonary arteries through the segmental level. LUNGS: There is severe centrilobular and paraseptal emphysema. Biapical scar is present. There is linear sca r in the right upper lobe and inferior left upper lobe. In the left upper lobe (image 27) there is a curvilinear nodule measuring 8 x 3 mm. In the left lower lobe there is a subpleural 3 mm nodule. Both of these nodules are stable. No airspace consolidation or pneumothorax is present. PLEURAE: There is no pleural thickening or pleural effusion. MEDIASTINUM: The heart and great vessels demonstrate no acute finding. There is coronary artery calcification and mild atherosclerotic disease of the aorta. Right chest wall [id number] is present. There are enlar ged mediastinal and bilateral hilar lymph nodes. These have slightly increased in size from the prior study. In particular a left mediastinal lymph node currently measures 3.7 x 2.0 cm compared to 2.9 x 1.9 cm previously. Additionally, an enlarged left supraclavicular lymph node currently measures 2.3 x 1.4 cm compared to 1.1 x 0.7 cm previously. MUSCULOSKELETAL: There are degenerative changes of the thoracic spine. No lytic or blastic lesion is seen. MISCELLANEOUS: There is a hypodense mass in the left lobe measuring 4.6 x 3.8 cm. This compares to 4.0 x 3.4 cm on t he prior liver MRI. CONCLUSION: 1. No PE is identified. 2. Extensive mediastinal, bilateral hilar, and left supraclavicular lymphadenopathy, mildly increased from the prior studies. 3. The left lobe liver mass which represents metastatic small cell carcinoma has also mildly increase d in size compared to the prior MRI. It currently measures 3.8 x 4.6 cm compared to 3.4 x 4.0 cm prev iously. 4. Severe emphysema with stable nodules in the left lobe. Consider attention to these at followup leopoldo ging. Abhinav Kraft MD on March 11, 2017 at 9:02 Board Certified Radiologist. This report was verified electronically.
[2017-03-11] MEDS ORDERED: PRED20 PO (09:28)
[2017-03-11] MEDS ORDERED: AZIT250T3 PO (09:28)
[2017-03-11] MEDS ORDERED: DILTIAZEM HCL 60 MG TAB PO ONE (09:30)
[2017-03-11] MEDS ORDERED: RESP: ALBUTEROL CONC 2.5 MG/0.5 ML NEB NEB ONE (11:15)
[2017-03-11] MEDS ORDERED: DILTIAZEM INJ 125 MG in SODIUM CHLORIDE 0.9% INJ 100 ML IV SCH (11:15)
[2017-03-11] MEDS ORDERED: RESP: ALBUTEROL 2.5 MG/3 ML NEB (SCH) NEB ONE (11:15)
[2017-03-11] MEDS ORDERED: ACETAMINOPHEN 325 MG TAB PO PRN ×2 (11:45)
[2017-03-11] MEDS ORDERED: SODIUM CHLORIDE 0.9% FLUSH 10 ML FLUSH IV FLUSH PRN (11:45)
[2017-03-11] MEDS ORDERED: ONDANSETRON HCL 4 MG/2 ML VIAL IVP PRN (11:45)
[2017-03-11] MEDS ORDERED: NALOXONE HCL 0.4 MG/ML AMP IV PRN (11:45)
--- NOTE | 2017-03-11 12:16 | HHI.HP ---
[facility] No Primary Care Physician Admission Diagnosis atrial flutter with rvr, copd exacerbation Diagnoses: (1) COPD exacerbation (2) Atrial fibrillation with rapid ventricular response (3) SCLC (small cell lung carcinoma) (4) Diabetes mellitus, type II Chief Complaint: Shortness of breath Travel History International Travel<30 Days: No Contact w/Intl Traveler <30 Da: No Traveled to Known Affected Are: No History of Present Illness 51 year-old female with a history of COPD, diabetes type 2, atrial fibrillation and recently diagnosed with small cell lung cancer with metastases who is currently receiving chemotherapy was brought to the ED today for evaluation of an acute onset of worsening shortness of breath 2 days without any associated diaphoresis or chest pain or cough production. Patient also stated that she noted her heart rate to be 140 this morning prior to her arrival in the ED. CTA pulmonary was negative for PE and chest x-ray without any cardio pulmonary disease. Patient continued to smoke although she states she smokes 2 cigarettes per day. She denies any GI bleed Review of Systems Other 12 systems review and are negative except the ones mentioned in the History of Present Illness Past Family Social History Past Medical History Anxiety: Yes (LAST ANXIETY ATTACK WAS IN 2000.) Cardiovascular Problems: Yes (HTN, tachycardia) COPD: Yes Diabetes: Yes Genitourinary: Yes Hypertension: Yes Kidney Stones: Yes (AT AGE 15.) Psychiatric: Yes Respiratory: Yes (COPD, on home o2, inhalers) Past Surgical History Gynecologic Surgery: Yes (TUBES TIED.) Other Surgery: Yes (HAND SURGERY ) Port infusion placed Reported Medications Lipitor (Atorvastatin Calcium) 20 Mg Tab 20 Mg PO HS Atrovent HFA 12.9 GM Inh (Ipratropium Palmer) 17 Mcg/Act Aer 2 Puff INH QID Spiriva Handihaler (Tiotropium Inh) 18 Mcg Cap 18 Mcg INH DAILY 1 capsule = 18 mcg Cardizem (Diltiazem HCl) 60 Mg Tab 60 Mg PO QID Allergies: Coded Allergies: Valium (Verified Allergy, Severe, HIVES, 03/11/17) *MDRO Multi-Drug Resistant Organism (Verified Adverse Reaction, Unknown, ) MRSA PCR Screen POSITIVE - 03/19/2016 Family History Father had COPD Mother had COPD and from [place] Sister with COPD, ESRD Social History Alcohol Use: Yes (RARELY) Tobacco Use: Yes (1/2 PPD) Substance Use: No Physical Exam Vital Signs Vital Signs Date Time Temp Pulse Resp B/P Pulse Ox O2 Delivery O2 Flow Rate FiO2 03/11/17 11:40 112 19 127/75 97 Nasal Cannula 4 03/11/17 11:08 121 22 175/79 95 Nasal Cannula 4 03/11/17 11:07 125 20 201/111 98 Nasal Cannula 2 03/11/17 09:21 110 20 125/84 98 Nasal Cannula 2 03/11/17 08:00 107 20 115/68 95 Nasal Cannula 2 03/11/17 07:30 96 Nasal Cannula 2 03/11/17 07:30 122 20 97 Nasal Cannula 2 03/11/17 07:10 97.7 120 22 116/85 97 Physical Exam GENERAL: This is a well-nourished, well-developed patient, in no apparent distress. SKIN: No rashes, ecchymoses or lesions. Cool and dry. HEAD: Atraumatic. Normocephalic. No temporal or scalp tenderness. EYES: Pupils equal round and reactive. Extraocular motions intact. No scleral icterus. No injection or drainage. ENT: Nose without bleeding, purulent drainage or septal hematoma. Throat without erythema, tonsillar hypertrophy or exudate. Uvula midline. Airway patent. NECK: Trachea midline. No JVD or lymphadenopathy. Supple, nontender, no meningeal signs. CARDIOVASCULAR: Irregular Regular rate and rhythm without murmurs, gallops, or rubs. RESPIRATORY: Clear to auscultation. Breath sounds equal bilaterally. No wheezes , rales, or rhonchi. GASTROINTESTINAL: Abdomen soft, non-tender, nondistended. No hepato-splenomegaly , or palpable masses. No guarding. MUSCULOSKELETAL: Extremities without clubbing, cyanosis, or edema. No joint tenderness, effusion, or edema noted. No calf tenderness. Negative Homans sign bilaterally. NEUROLOGICAL: Awake and alert. Cranial nerves II through XII intact. Motor and sensory grossly within normal limits. Five out of 5 muscle strength in all muscle groups. Normal speech. Laboratory Laboratory Tests Test 03/11/17 03/11/17 07:30 07:40 Blood Gas Puncture Site RT RADIAL Blood Gas Patient Temperature 98.6 Blood Gas HCO3 31 Blood Gas Base Excess 6.1 Blood Gas Oxygen Saturation 93 Arterial Blood pH 7.41 Arterial Blood Partial 50 Pressure CO2 Arterial Blood Partial 92 Pressure O2 Arterial Blood Oxygen Content 17.3 Arterial Blood 4.2 Carboxyhemoglobin Arterial Blood Methemoglobin 0.6 Blood Gas Hemoglobin 13.1 Oxygen Delivery Device NASAL CANNULA Blood Gas Liter Flow 2 White Blood Count 5.7 Red Blood Count 4.40 Hemoglobin 12.6 Hematocrit 37.8 Mean Corpuscular Volume 85.8 Mean Corpuscular Hemoglobin 28.7 Mean Corpuscular Hemoglobin 33.4 Concent Red Cell Distribution Width 15.2 Platelet Count 217 Mean Platelet Volume 8.1 Neutrophils (%) (Auto) 66.3 Lymphocytes (%) (Auto) 31.9 Monocytes (%) (Auto) 0.8 Eosinophils (%) (Auto) 0.6 Basophils (%) (Auto) 0.4 Neutrophils # (Auto) 3.8 Lymphocytes # (Auto) 1.8 Monocytes # (Auto) 0.0 Eosinophils # (Auto) 0.0 Basophils # (Auto) 0.0 CBC Comment DIFF FINAL Differential Comment Sodium Level 140 Potassium Level 3.9 Chloride Level 103 Carbon Dioxide Level 30.2 Anion Gap 7 Blood Urea Nitrogen 10 Creatinine 0.54 Estimat Glomerular Filtration 119 Rate Random Glucose 102 Calcium Level 8.9 Total Bilirubin 0.4 Aspartate Amino Transf 18 (AST/SGOT) Alanine Aminotransferase 25 (ALT/SGPT) Alkaline Phosphatase 98 Troponin I 0.02 B-Type Natriuretic Peptide 7 Total Protein 6.2 Albumin 3.0 Result Diagram: 03/11/17 0740 03/11/17739 Imaging Last Impressions Chest X-Ray 03/11/17716 Signed Impressions: Service Date/Time: February 07:44 - CONCLUSION: No acute cardiopulmonary abnormality is identified. Lung changes are suggestive of obstructive airways disease/emphysema. Abhinav Kraft MD CT Angiography 03/11/17 0000 Signed Impressions: Service Date/Time: February 08:35 - CONCLUSION: 1. No PE is identified. 2. Extensive mediastinal, bilateral hilar, and left supraclavicular lymphadenopathy, mildly increased from the prior studies. 3. The left lobe liver mass which represents metastatic small cell carcinoma has also mildly increased in size compared to the prior MRI. It currently measures 3.8 x 4.6 cm compared to 3.4 x 4.0 cm previously. 4. Severe emphysema with stable nodules in the left lobe. Consider attention to these at followup imaging. Abhinav Kraft MD Assessment and Plan Problem List: (1) COPD with acute exacerbation ICD Code: J44.1 Status: Acute (2) Atrial fibrillation with RVR ICD Code: I48.91 Status: Acute (3) Diabetes mellitus, type II ICD Code: E11.9 Status: Chronic (4) SCLC (small cell lung carcinoma) ICD Code: C34.90 Status: Chronic Assessment and Plan 51-year-old female with COPD exacerbation: CTA noted and review with no evidence of PE. Chest x-ray noted and reviewed by me without any cardiopulmonary disease. Treatment with Prednisone by mouth, duo Neb scheduled and when necessary, Spiriva and its Romycin Atrial fibrillation rapid ventricular response: Continue ACS rule out per protocol with serial cardiac enzyme and EKG, Start Cardizem drip telemetry monitoring and 2D echo History of small cell lung cancer: Patient is currently on chemotherapy, outpatient follow-up with oncology History of diabetes type 2: Sliding scale insulin with fingerstick blood glucose monitoring Anxiety: Xanax when necessary Tobacco abuse: Counseled to quit DVT prophylaxis: Bilateral SCDs Code Status Full code Discussed Condition With Patient, ED physician Physician Certification 2 Midnight Certification Type: Admission for Inpatient Services Order for Inpatient Services The services are ordered in accordance with Medicare regulations or non- Medicare payer requirements, as applicable. In the case of services not specified as inpatient-only, they are appropriately provided as inpatient services in accordance with the 2-midnight benchmark. Estimated LOS (days): 2 days is the estimated time the patient will need to remain in the hospital, assuming treatment plan goals are met and no additional complications. Post-Hospital Plan: Not yet determined Sal Loza MD Mar 11, 2017 12:16
[2017-03-11] MEDS ORDERED: ALPRAZolam 0.5 MG TAB PO PRN (12:45)
[2017-03-11] MEDS ORDERED: DEXTROSE 50% IN WATER 50 ML VIAL(D50) IV PUSH PRN (12:45)
[2017-03-11] MEDS ORDERED: GLUCAGON 1 MG/ML VIAL OTHER PRN (12:45)
[2017-03-11] MEDS: RESP: ALBUTEROL 2.5 MG/IPRATROPIUM 0.5 MG NEB (SCH) NEB ×2 (13:59→19:25)
--- NOTE | 2017-03-11 14:53 | EKG ---
Date Performed: 03/11/2017 Time Performed: 07:26:33 PTAGE: 51 years EKG: NORMAL Sinus rhythm POSSIBLE ANTEROSEPTAL INFARCT, AGE UNDETERMINED PREVIOUS TRACING : 02/14/2017 23.18 No significant change from previous tracing noted. DOCTOR: Logan Olsen Interpretating Date/Time 03/11/2017 14:53:14
[2017-03-11] MEDS: INSULIN ASPART SUPPLEMENTAL SCALE SQ SCH ×2 (16:29→20:16)
--- NOTE | 2017-03-11 16:41 | PD ---
Data Data Last Documented VS Vital Signs Date Time Temp Pulse Resp B/P Pulse Ox O2 Delivery O2 Flow Rate FiO2 03/11/17 11:08 121 22 175/79 95 Nasal Cannula 4 03/11/17 07:10 97.7 Orders Complete Blood Count With Diff (03/11/17 07:17) Comprehensive Metabolic Panel (03/11/17 07:17) B-Type Natriuretic Peptide (03/11/17 07:17) Troponin I (03/11/17 07:17) Arterial Blood Gas (Abg) (03/11/17 07:17) Iv Access Insert/Monitor (03/11/17 07:17) Electrocardiogram (03/11/17 07:17) Ecg Monitoring (03/11/17 07:17) Oximetry (03/11/17 07:17) Oxygen Administration (03/11/17 07:17) Chest, Single Ap (03/11/17 07:17) Sodium Chloride 0.9% Flush (Ns Flush) (03/11/17 07:30) Albuterol Neb (Albuterol Neb) (03/11/17 07:30) Sodium Chlor 0.9% 1000 Ml Inj (Ns 1000 M (03/11/17 07:30) Diltiazem Inj (Cardizem Inj) (03/11/17 07:30) Ct Pulmonary Angiogram (03/11/17 ) Iohexol 350 Inj (Omnipaque 350 Inj) (03/11/17 08:53) Diltiazem (Cardizem) (03/11/17 09:30) Albuterol Concentrated Neb (Albuterol Co (03/11/17 11:15) Albuterol Neb (Albuterol Neb) (03/11/17 11:15) Diltiazem Inj (Cardizem Inj) (03/11/17 11:15) Vital Signs (Adult) [id number],Q4H (03/11/17 11:10) Consumer Safety Officer / Telemetry RYAN.Q8H (03/11/17 11:10) Cardiac Rhythm RYAN.Q8H (03/11/17 11:10) Notify Dr: Other (03/11/17 11:10) Diltiazem Inj (Cardizem Inj) (03/11/17 11:15) Admit Order (Ed Use Only) (03/11/17 11:35) Labs Laboratory Tests Test 03/11/17 03/11/17 07:30 07:40 Blood Gas Puncture Site RT RADIAL Blood Gas Patient Temperature 98.6 Blood Gas HCO3 31 mmol/L Blood Gas Base Excess 6.1 mmol/L Blood Gas Oxygen Saturation 93 % Arterial Blood pH 7.41 Arterial Blood Partial 50 mmHg Pressure CO2 Arterial Blood Partial 92 mmHG Pressure O2 Arterial Blood Oxygen Content 17.3 Vol % Arterial Blood 4.2 % Carboxyhemoglobin Arterial Blood Methemoglobin 0.6 % Blood Gas Hemoglobin 13.1 G/DL Oxygen Delivery Device NASAL CANNULA Blood Gas Liter Flow 2 L/M White Blood Count 5.7 TH/MM3 Red Blood Count 4.40 MIL/MM3 Hemoglobin 12.6 GM/DL Hematocrit 37.8 % Mean Corpuscular Volume 85.8 FL Mean Corpuscular Hemoglobin 28.7 PG Mean Corpuscular Hemoglobin 33.4 % Concent Red Cell Distribution Width 15.2 % Platelet Count 217 TH/MM3 Mean Platelet Volume 8.1 FL Neutrophils (%) (Auto) 66.3 % Lymphocytes (%) (Auto) 31.9 % Monocytes (%) (Auto) 0.8 % Eosinophils (%) (Auto) 0.6 % Basophils (%) (Auto) 0.4 % Neutrophils # (Auto) 3.8 TH/MM3 Lymphocytes # (Auto) 1.8 TH/MM3 Monocytes # (Auto) 0.0 TH/MM3 Eosinophils # (Auto) 0.0 TH/MM3 Basophils # (Auto) 0.0 TH/MM3 CBC Comment DIFF FINAL Differential Comment Sodium Level 140 MEQ/L Potassium Level 3.9 MEQ/L Chloride Level 103 MEQ/L Carbon Dioxide Level 30.2 MEQ/L Anion Gap 7 MEQ/L Blood Urea Nitrogen 10 MG/DL Creatinine 0.54 MG/DL Estimat Glomerular Filtration 119 ML/MIN Rate Random Glucose 102 MG/DL Calcium Level 8.9 MG/DL Total Bilirubin 0.4 MG/DL Aspartate Amino Transf 18 U/L (AST/SGOT) Alanine Aminotransferase 25 U/L (ALT/SGPT) Alkaline Phosphatase 98 U/L Troponin I 0.02 NG/ML B-Type Natriuretic Peptide 7 PG/ML Total Protein 6.2 GM/DL Albumin 3.0 GM/DL [facility] Supervised Visit with AMY: No Narrative Course Patient was waiting for ride after discharge and she started to be short of breath again. When I went into evaluate her she was tachycardic in the 130s, tachypneic and struggling to breathe. She is given an additional bronchodilator treatment, given and 20 mg of IV diltiazem and started on a diltiazem infusion. Patient likely requires continued pulmonary and cardiac management as an inpatient. She was admitted for COPD exacerbation and atrial flutter with RVR. Critical Care Narrative Aggregate critical care time was 40 minutes. Time to perform other separately billable procedures was not included in the critical care time. My time did not include minutes spent treating any other patients simultaneously or on activities that did not directly contribute to the patient's treatment. The services I provided to this patient were to treat and/or prevent clinically significant deterioration that could result in: Disability, I provided critical care services requiring my management, as noted below: Chart data review, documentation time, medication orders and management, vital sign assessments/reviewing monitor data, ordering and reviewing lab tests, ordering and interpreting/reviewing x-rays and diagnostic studies, care of the patient and discussion of the patient with the admitting physicians. Physician Communication Physician Communication Discussed with Dr. Loza Diagnosis Primary Impression: Acute exacerbation of chronic obstructive pulmonary disease (COPD) Additional Impression: Atrial fibrillation and flutter Admitting Information Admitting Physician Requests: Admit Patient Instructions: General Instructions, Atrial Fibrillation (ED), COPD ( Chronic Obstructive Pulmonary Disease) (ED) Departure Forms: Tests/Procedures Additional Instruction: If you develop severe chest pain, shortness of breath, sweating, lightheadedness , dizziness or difficulty breathing return to the emergency department immediately. Followup with your primary care physician in 2-3 days if your symptoms are not resolved. Scripts Azithromycin 250 Mg Sny659 Mg PO DIRECTED #6 TAB Take 2 tabs (500 mg) on day 1 then 1 tab daily x 4 days. Prov:Jessica Quan MD 03/11/17 Prednisone 20 Mg Tab40 Mg PO DAILY 4 Days Prov:Jessica Quan MD 03/11/17 Disposition: 01 DISCHARGE HOME Condition: Stable Jessica Quan MD Mar 11, 2017 16:41
[2017-03-11] MEDS: RESP: ALBUTEROL 2.5 MG/IPRATROPIUM 0.5 MG NEB (PRN) NEB (17:52)
[2017-03-11] MEDS: SODIUM CHLORIDE 0.9% FLUSH 10 ML FLUSH IV FLUSH SCH (20:11)
[2017-03-11] MEDS ORDERED: ATORVASTATIN 20 MG TAB PO SCH (21:00)
--- NOTE | 2017-03-11 22:36 | EKG ---
Date Performed: 03/11/2017 Time Performed: 15:13:58 PTAGE: 51 years EKG: SINUS TACHYCARDIA ABNORMAL RHYTHM ECG PREVIOUS TRACING : 03/11/2017 07.26 No significant change from previous tracing noted. DOCTOR: Logan Olsen Interpretating Date/Time 03/11/2017 22:35:34
[2017-03-12] VITALS (10 sets, daily range): BP systolic 89–108; BP diastolic 55–69; PULSE 84–103; RESP 16–18; TEMP 97.7–98.2; O2SAT 98–99
[2017-03-12] MEDS: RESP: ALBUTEROL 2.5 MG/IPRATROPIUM 0.5 MG NEB (PRN) NEB ×2 (01:52→05:59)
[2017-03-12] MEDS: INSULIN ASPART SUPPLEMENTAL SCALE SQ SCH (06:13)
[2017-03-12] MEDS: SODIUM CHLORIDE 0.9% FLUSH 10 ML FLUSH IV FLUSH SCH (08:09)
[2017-03-12] MEDS: RESP: ALBUTEROL 2.5 MG/IPRATROPIUM 0.5 MG NEB (SCH) NEB (08:17)
[2017-03-12] MEDS ORDERED: PRED10 PO (08:57)
[2017-03-12] MEDS ORDERED: AZITHROMYCIN 250 MG TAB PO SCH (09:00)
[2017-03-12] MEDS ORDERED: DILTIAZEM HCL 60 MG TAB PO SCH (09:00)
[2017-03-12] MEDS ORDERED: TIOTROPIUM BROMIDE 18 MCG INH INH SCH (09:00)
[2017-03-12] MEDS ORDERED: predniSONE 10 MG TAB PO SCH (09:00)
--- NOTE | 2017-03-12 09:00 | HHI.PR ---
Subjective Remarks Follow-up COPD exacerbation/atrial fibrillation with rapid ventricular response 03/12/17-patient seen and examined, reports breathing much better and denies any shortness of breath. Heart rate control. Objective Vitals Vital Signs Date Time Temp Pulse Resp B/P Pulse Ox O2 Delivery O2 Flow Rate FiO2 03/12/17 08:21 98 Nasal Cannula 2.00 03/12/17 08:00 103 03/12/17 07:00 98.2 86 16 89/55 99 03/12/17 07:00 99 Nasal Cannula 3.00 03/12/17 07:00 87 03/12/17 06:00 96 03/12/17 05:00 86 03/12/17 04:00 86 03/12/17 03:00 97.7 91 18 108/69 98 03/12/17 03:00 98 Room Air 3.00 03/12/17 03:00 88 03/12/17 02:00 90 03/12/17 01:00 84 03/12/17 00:00 86 03/11/17 23:00 98 Nasal Cannula 3.00 03/11/17 23:00 97.7 93 20 120/75 98 03/11/17 23:00 92 03/11/17 22:00 94 03/11/17 21:00 100 03/11/17 20:00 102 03/11/17 19:00 111 03/11/17 19:00 97.7 108 26 131/78 99 03/11/17 19:00 99 Nasal Cannula 3.00 03/11/17 18:00 106 03/11/17 17:52 98 Nasal Cannula 2.00 03/11/17 17:00 98.2 110 18 131/81 97 03/11/17 17:00 103 03/11/17 17:00 97 Nasal Cannula 3.00 03/11/17 14:00 105 22 114/78 97 Nasal Cannula 3 03/11/17 11:40 112 19 127/75 97 Nasal Cannula 4 03/11/17 11:08 121 22 175/79 95 Nasal Cannula 4 03/11/17 11:07 125 20 201/111 98 Nasal Cannula 2 03/11/17 09:21 110 20 125/84 98 Nasal Cannula 2 I/O 03/11/17 03/11/17 03/11/17 03/12/17 03/12/17 03/12/17 07:00 15:00 23:00 07:00 15:00 23:00 Intake Total 240 ml 500 ml Output Total 500 ml Balance 240 ml 0 ml Intake Oral 240 ml 360 ml IV Total 140 ml Output Urine Total 500 ml Result Diagram: 03/11/17 0740 03/11/17 0740 Imaging Last Impressions Chest X-Ray 03/11/17 0717 Signed Impressions: Service Date/Time: February 07:44 - CONCLUSION: No acute cardiopulmonary abnormality is identified. Lung changes are suggestive of obstructive airways disease/emphysema. Abhinav Kraft MD CT Angiography 03/11/17 0000 Signed Impressions: Service Date/Time: February 08:35 - CONCLUSION: 1. No PE is identified. 2. Extensive mediastinal, bilateral hilar, and left supraclavicular lymphadenopathy, mildly increased from the prior studies. 3. The left lobe liver mass which represents metastatic small cell carcinoma has also mildly increased in size compared to the prior MRI. It currently measures 3.8 x 4.6 cm compared to 3.4 x 4.0 cm previously. 4. Severe emphysema with stable nodules in the left lobe. Consider attention to these at followup imaging. Abhinav Kraft MD Objective Remarks GENERAL: NAD SKIN: Warm and dry. HEAD: Normocephalic. EYES: No scleral icterus. No injection or drainage. NECK: Supple, trachea midline. No JVD or lymphadenopathy. CARDIOVASCULAR: Irregular Regular rate and rhythm without murmurs, gallops, or rubs. RESPIRATORY: Breath sounds equal bilaterally. No accessory muscle use. GASTROINTESTINAL: Abdomen soft, non-tender, nondistended. MUSCULOSKELETAL: No cyanosis, or edema. BACK: Nontender without obvious deformity. No CVA tenderness. A/P Problem List: (1) COPD with acute exacerbation ICD Code: J44.1 Status: Resolved (2) Atrial fibrillation with RVR ICD Code: I48.91 Status: Resolved (3) Diabetes mellitus, type II ICD Code: E11.9 Status: Chronic (4) SCLC (small cell lung carcinoma) ICD Code: C34.90 Status: Chronic Assessment and Plan 51-year-old female with COPD exacerbation: Resolved. CTA with no evidence of PE. Chest x-ray without any cardiopulmonary disease. Improved with Prednisone by mouth, duo Neb scheduled and when necessary, Spiriva and azithromycin Atrial fibrillation rapid ventricular response: Currently rate controlled and ACS ruled out per protocol with serial cardiac enzyme and EKG, will discontinue Cardizem drip, start by mouth Cardizem telemetry monitoring and 2D echo pending History of small cell lung cancer: Patient is currently on chemotherapy, outpatient follow-up with oncology History of diabetes type 2: Sliding scale insulin with fingerstick blood glucose monitoring Anxiety: Xanax when necessary Tobacco abuse: Counseled to quit DVT prophylaxis: Bilateral SCDs Patient's condition tremendously improved since admission, therefore she will be discharged home to follow-up with PCP Discharge Planning Discharge patient to home Condition on discharge: Improved Healthy Diet as tolerated Ad Allie activity Rx written: Azithromycin 250 mg daily 4 more days, prednisone 10 mg daily 5 more days Follow-up with primary care physician in one week Sal Loza MD Mar 12, 2017 09:00
[2017-03-12] MEDS ORDERED: AZIT250T3 PO (09:02)
[2017-04-29] MEDS ORDERED: IPRA17I INH (12:58)
[2017-04-29] MEDS ORDERED: PRED20 PO (12:58)
[2017-04-29] MEDS ORDERED: MIRTA15 PO (12:58)
[2017-04-29] MEDS ORDERED: METO25TA3 PO (12:58)
[2017-04-29] MEDS ORDERED: CLON.5 PO (12:58)
[2017-04-29] MEDS ORDERED: LIPI20TA PO (12:58)
[2017-04-29] MEDS ORDERED: SYMB160A INH (12:58)
[2017-04-29] MEDS ORDERED: PANT40TA3 PO (12:58)
[2017-04-29] MEDS ORDERED: DOCU1CAP39 PO (12:58)
[2017-04-29] MEDS ORDERED: GNP5TAB6 PO (12:58)
[2017-04-29] MEDS ORDERED: CARD180C5 PO (12:58)
[2017-04-29] MEDS ORDERED: SPIRCAP INH (12:58)
== END 2017-03-12 11:11 | disposition home or self-care (01) | DRG 191 ==
LOC: NEPC 07:04 → NEDA 11:36 → HCIS 16:40
PROVIDERS: ADMIT Hospitalist; ATTEND Hospitalist
PROC: 039B3ZZ Drainage of Right Radial Artery, Percutaneous Approach (ICD-10-PCS; principal; 2017-03-11)
DX: J44.1 Chronic obstructive pulmonary disease with (acute) exacerbation (principal); C34.90 Malignant neoplasm of unspecified part of unspecified bronchus or lung; C78.7 Secondary malignant neoplasm of liver and intrahepatic bile duct; I48.91 Unspecified atrial fibrillation; E11.9 Type 2 diabetes mellitus without complications; F41.1 Generalized anxiety disorder; Z79.899 Other long term (current) drug therapy; F17.210 Nicotine dependence, cigarettes, uncomplicated; I10 Essential (primary) hypertension
CPT/HCPCS: 36600; 71010; 71275; 80053; 82550; 82805; 82948; 83880; 84484; 85025; 93005; 94640; 94664; 96374; 96375; 96411; 96413; G0463; J1626; J1642; J1815; J7030; J7040; J7050; J7512; J7613; J9181; Q9967

== ENCOUNTER 2017-04-06 23:27 | Inpatient (IN) | payer MEDICARE, MEDICAID ==
[~2017-04-06] VITALS: Ht 170.2 cm; Wt 71.2 kg
[~2017-04-06 23:27] MED LIST changes: +AZIT250T3 PO; -BP MED; -CART120C PO; +PRED10 PO
[2017-04-06 23:32] VITALS: BP 168/96; PULSE 146; RESP 48; TEMP 98.2; O2SAT 100
[2017-04-06 23:40] VITALS: O2SAT 100
--- NOTE | 2017-04-06 23:42 | PD ---
HPI Chief Complaint: Respiratory Distress Time Seen by Provider: 23:30 Travel History International Travel<30 days: No Contact w/Intl Traveler<30days: No Traveled to known affect area: No History of Present Illness HPI 51-year-old female complains of coughing wheezing or shortness of breath. Patient has history of small cell lung cancer with metastasis to the liver. Patient is on chemotherapy. Patient also has history of COPD. Patient states that she has increasing shortness of breath this evening. Patient denies any fever chills. EMS was called. Patient is given albuterol treatment on the way to the ED. Patient also has history of atrial fibrillation, hypertension, kidney stone. PFSH Past Medical History Anxiety: Yes (LAST ANXIETY ATTACK WAS IN 2000.) Depression: No Cancer: Yes (small cell lung cancer, liver) Cardiovascular Problems: Yes (HTN, tachycardia) High Cholesterol: No Chemotherapy: Yes Congestive Heart Failure: No COPD: Yes Coronary Artery Disease: No Diabetes: No Diminished Hearing: No Endocrine: No Genitourinary: Yes Hypertension: Yes Immune Disorder: No Implanted Vascular Access Dvce: No Kidney Stones: Yes (AT AGE 15.) Musculoskeletal: No Neurologic: No Psychiatric: Yes Reproductive: No Respiratory: Yes (copd, on home o2, inhalers) Immunizations Current: No Thyroid Disease: No ?: Not Menopausal: Yes : 9 Para: 4 Miscarriage: 5 Dilation and Curettage (D&C): Yes Tubal Ligation: Yes Past Surgical History AICD: No Gynecologic Surgery: Yes (TUBES TIED.) Joint Replacement: No Pacemaker: No Thoracic Surgery: Yes (port right chest) Other Surgery: Yes (HAND SURGERY ) Social History Alcohol Use: No Tobacco Use: Yes (1/2 PPD) Substance Use: No Allergies-Medications (Allergen,Severity, Reaction): Coded Allergies: Valium (Verified Allergy, Severe, HIVES, 04/07/17) *MDRO Multi-Drug Resistant Organism (Verified Adverse Reaction, Unknown, ) MRSA PCR Screen POSITIVE - 03/19/2016 Reported Meds & Prescriptions Reported Meds & Active Scripts Active Lipitor (Atorvastatin Calcium) 20 Mg Tab 20 Mg PO HS Atrovent HFA 12.9 GM Inh (Ipratropium [place]) 17 Mcg/Act Aer 2 Puff INH QID Spiriva Handihaler (Tiotropium Inh) 18 Mcg Cap 18 Mcg INH DAILY 1 capsule = 18 mcg Cardizem (Diltiazem HCl) 60 Mg Tab 60 Mg PO QID Review of Systems General / Constitutional: No: Fever Eyes: No: Visual changes HENT: No: Headaches Cardiovascular: No: Chest Pain or Discomfort Respiratory: Positive: Cough, Shortness of Breath, Wheezing Gastrointestinal: No: Abdominal Pain Genitourinary: No: Dysuria Musculoskeletal: No: Pain Skin: No Rash Neurologic: No: Weakness Psychiatric: No: Depression Endocrine: No: Polydipsia Hematologic/Lymphatic: No: Easy Bruising Physical Exam Narrative GENERAL: Well-nourished, well-developed patient. SKIN: Focused skin assessment warm/dry. HEAD: Normocephalic. EYES: No scleral icterus. No injection or drainage. NECK: Supple, trachea midline. No JVD or lymphadenopathy. CARDIOVASCULAR: Regular rate and rhythm without murmurs, gallops, or rubs. RESPIRATORY: Patient has diminished breath sounds bilaterally. Moderate expiratory wheezes left lung. GASTROINTESTINAL: Abdomen soft, non-tender, nondistended. MUSCULOSKELETAL: No cyanosis, or edema. BACK: Nontender without obvious deformity. No CVA tenderness. neurologic exam normal. Data Data Last Documented VS Vital Signs Date Time Temp Pulse Resp B/P Pulse Ox O2 Delivery O2 Flow Rate FiO2 04/06/17 23:52 Nasal Cannula 2.00 04/06/17 23:40 100 04/06/17 23:32 98.2 146 48 168/96 Orders Complete Blood Count With Diff (04/06/17 23:32) Comprehensive Metabolic Panel (04/06/17 23:32) B-Type Natriuretic Peptide (04/06/17 23:32) Act Partial Throm Time (Ptt) (04/06/17 23:32) Prothrombin Time / Inr (Pt) (04/06/17 23:32) Urinalysis - C+S If Indicated (04/06/17 23:32) Blood Culture (04/06/17 23:32) Iv Access Insert/Monitor (04/06/17 23:32) Electrocardiogram (04/06/17 23:32) Ecg Monitoring (04/06/17 23:32) Oximetry (04/06/17 23:32) Oxygen Administration (04/06/17 23:32) Chest, Single Ap (04/06/17 23:32) Methylprednisolone So Succ Inj (Solumedr (04/06/17 23:45) Albuterol-Ipratropium Neb (Duoneb Neb) (04/06/17 23:45) Arterial Blood Gas (Abg) (04/06/17 ) Diltiazem (Cardizem) (04/07/17 00:15) Hydroxyzine Hcl Inj (Vistaril Inj) (04/07/17 00:15) Ct Pulmonary Angiogram (04/07/17 00:31) Admit Order (Ed Use Only) (04/07/17 00:36) Labs Laboratory Tests Test 04/06/17 04/07/17 23:40 00:25 White Blood Count 6.2 TH/MM3 Red Blood Count 3.82 MIL/MM3 Hemoglobin 11.1 GM/DL Hematocrit 33.5 % Mean Corpuscular Volume 87.8 FL Mean Corpuscular Hemoglobin 29.2 PG Mean Corpuscular Hemoglobin 33.2 % Concent Red Cell Distribution Width 16.9 % Platelet Count 530 TH/MM3 Mean Platelet Volume 8.0 FL Neutrophils (%) (Auto) 85.8 % Lymphocytes (%) (Auto) 4.5 % Monocytes (%) (Auto) 7.6 % Eosinophils (%) (Auto) 0.6 % Basophils (%) (Auto) 1.5 % Neutrophils # (Auto) 5.3 TH/MM3 Lymphocytes # (Auto) 0.3 TH/MM3 Monocytes # (Auto) 0.5 TH/MM3 Eosinophils # (Auto) 0.0 TH/MM3 Basophils # (Auto) 0.1 TH/MM3 CBC Comment DIFF FINAL Differential Comment Prothrombin Time 10.1 SEC Prothromb Time International 0.9 RATIO Ratio Activated Partial 30.3 SEC Thromboplast Time Sodium Level 142 MEQ/L Potassium Level 4.4 MEQ/L Chloride Level 105 MEQ/L Carbon Dioxide Level 30.8 MEQ/L Anion Gap 6 MEQ/L Blood Urea Nitrogen 8 MG/DL Creatinine 0.60 MG/DL Estimat Glomerular Filtration 105 ML/MIN Rate Random Glucose 175 MG/DL Calcium Level 9.4 MG/DL Total Bilirubin 0.2 MG/DL Aspartate Amino Transf 15 U/L (AST/SGOT) Alanine Aminotransferase 16 U/L (ALT/SGPT) Alkaline Phosphatase 93 U/L B-Type Natriuretic Peptide 34 PG/ML Total Protein 7.0 GM/DL Albumin 3.5 GM/DL Blood Gas Puncture Site LT RADIAL Blood Gas Patient Temperature 98.6 Blood Gas HCO3 30 mmol/L Blood Gas Base Excess 3.9 mmol/L Blood Gas Oxygen Saturation 89 % Arterial Blood pH 7.31 Arterial Blood Partial 61 mmHg Pressure CO2 Arterial Blood Partial 66 mmHG Pressure O2 Arterial Blood Oxygen Content 14.2 Vol % Arterial Blood 2.6 % Carboxyhemoglobin Arterial Blood Methemoglobin 0.6 % Blood Gas Hemoglobin 11.2 G/DL Oxygen Delivery Device NASAL CANNULA Blood Gas Liter Flow 2 L/M MDM Medical Decision Making Medical Screen Exam Complete: Yes Emergency Medical Condition: Yes Interpretation(s) Last Impressions Chest X-Ray 04/06/17 2322 Signed Impressions: Service Date/Time: Thursday, April 06, 2017 23:50 - CONCLUSION: 1. Hyperinflation suggesting COPD. Roberth Lockett Jr., MD 12:32 AM. CBC WBC 6.2. Hemoglobin 11.1 hematocrit 33.5. Platelet 530. 85 neutrophil. CMP within normal limit. BNP 34. Differential Diagnosis Differential diagnosis including acute exacerbation COPD, pneumonia, pneumothorax, PE. Narrative Course 51-year-old female with wheezing, coughing, shortness of breath. History of COPD and small cell lung CA. Patient is on chemotherapy. Patient was given albuterol treatment by EMS. Albuterol with Atrovent unit dose treatment 2. Solu-Medrol 125 mg IV. Patient will be put on CPAP. Cefepime 1 g IV. Zithromax 500 mg IV. Diagnosis Primary Impression: COPD with acute exacerbation Additional Impression: History of lung cancer Admitting Information Admitting Physician Requests: Admit Aditya Sandoval MD April 06, 2017 23:42
[2017-04-06] MEDS ORDERED: methylPREDNISolone SOD SUCC 125 MG/2 ML VIAL IVP ONE (23:45)
[2017-04-06] MEDS: RESP: ALBUTEROL 2.5 MG/IPRATROPIUM 0.5 MG NEB (SCH) INH (23:47)
[2017-04-07] VITALS (32 sets, daily range): BP systolic 116–211; BP diastolic 67–106; PULSE 117–138; RESP 9–61; TEMP 97–98.9; O2SAT 91–99
--- NOTE | 2017-04-07 | RADRPT ---
EXAM DATE/TIME: 04/06/2017 23:50 [facility] COMPARISON: CHEST SINGLE AP, March 11, 2017, 7:44. INDICATIONS : Short of breath. MEDICAL HISTORY : None. SURGICAL HISTORY : None. ENCOUNTER: Initial ACUITY: 1 day PAIN SCORE: 0/10 LOCATION: Bilateral chest FINDINGS: 2 portable frontal views of the chest show the lungs to be hyperaerated. No discrete infiltrate or ef fusion. Heart is normal in size. A power port overlies the right chest. CONCLUSION: 1. Hyperinflation suggesting COPD. Roberth Lockett Jr., MD on April 06, 2017 at 23:58 Board Certified Radiologist. This report was verified electronically.
[2017-04-07 00:01] LABS: AUTOMATED NEUTROPHIL # 5.3 TH/MM3 (1.8-7.7); BASOPHIL # 0.1 TH/MM3 (0-0.2); BASOPHIL % 1.5 % (0.0-2.0); EOSINOPHIL % 0.6 % (0.0-4.0); HEMATOCRIT 33.5 % (35.0-46.0); HEMO FLAGS DIFF FINAL; LYMPH % 4.5 % (9.0-44.0); LYMPHOCYTE # 0.3 TH/MM3 (1.0-4.8); MEAN CELL VOLUME 87.8 FL (80.0-100.0); MEAN CORPUSCULAR HEMOGLOBIN 29.2 PG (27.0-34.0); MEAN CORPUSCULAR HGB CONC 33.2 % (32.0-36.0); MONO % 7.6 % (0.0-8.0); NEUT % 85.8 % (16.0-70.0); PLATELET COUNT 530 TH/MM3 (150-450); RED BLOOD COUNT 3.82 MIL/MM3 (4.00-5.30); RED CELL DISTRIBUTION WIDTH 16.9 % (11.6-17.2); WHITE BLOOD COUNT 6.2 TH/MM3 (4.0-11.0)
[2017-04-07 00:05] LABS: APTT (PATIENT) 30.3 SEC (24.3-30.1); INTERNATIONAL NORMALIZED RATIO 0.9 RATIO; PROTHROMBIN TIME - PATIENT 10.1 SEC (9.8-11.6)
[2017-04-07 00:07] LABS: ALT (GPT) 16 U/L (10-53); ANION GAP 6 MEQ/L (5-15); AST (GOT) 15 U/L (15-37); BICARBONATE 30.8 MEQ/L (21.0-32.0); BLOOD UREA NITROGEN 8 MG/DL (7-18); CHLORIDE 105 MEQ/L (98-107); GLOMERULAR FILTRATION RATE 105 ML/MIN (>89); POTASSIUM 4.4 MEQ/L (3.5-5.1); SODIUM (NA) 142 MEQ/L (136-145)
[2017-04-07 00:10] LABS: ALKALINE PHOSPHATASE 93 U/L (45-117); TOTAL BILIRUBIN ADULT 0.2 MG/DL (0.2-1.0)
[2017-04-07] MEDS ORDERED: DILTIAZEM HCL 60 MG TAB PO ONE (00:15)
[2017-04-07 00:37] LABS: BLOOD GAS BASE EXCESS 3.9 mmol/L (-2-2); BLOOD GAS CARBOXYHEMOGLOBIN 2.6 % (0-4); BLOOD GAS HCO3 30 mmol/L (22-26); BLOOD GAS METHEMOGLOBIN 0.6 % (0-2); BLOOD GAS O2 HGB SATURATION 89 % (90-100); BLOOD GAS OXYGEN CONTENT 14.2 Vol % (12.0-20.0); BLOOD GAS PCO2 61 mmHg (38-42); BLOOD GAS PO2 66 mmHG (61-120); BLOOD GAS TOTAL HGB 11.2 G/DL (12.0-16.0); CRITICAL VALUE YES; DRAW SITE LT RADIAL; LITER FLOW 2 L/M; NUMBER OF ARTERIAL PUNCTURES 1; OXYGEN DEVICE NASAL CANNULA; STAT YES; TEMP CORR TO 98.6; ULNAR PULSE PRESENT
[2017-04-07] MEDS ORDERED: AZITHROMYCIN INJ 500 MG in SODIUM CHLOR 0.9% 250 ML INJ 250 ML IV ONE (00:45)
[2017-04-07] MEDS ORDERED: CEFEPIME INJ 1,000 MG in SODIUM CHLORIDE 0.9% INJ 100 ML IV ONE (00:45)
[2017-04-07] MEDS ORDERED: CALCIUM CARBONATE 500 MG CHEWABLE TAB CHEW PRN (01:00)
[2017-04-07] MEDS ORDERED: SODIUM CHLORIDE 0.9% FLUSH 10 ML FLUSH IV FLUSH PRN (01:00)
[2017-04-07] MEDS ORDERED: ACETAMINOPHEN 325 MG TAB PO PRN (01:00)
[2017-04-07] MEDS ORDERED: DOCUSATE SODIUM 100 MG CAP PO PRN (01:00)
[2017-04-07] MEDS ORDERED: IOHEXOL 350 MG/ML 10 ML VIAL (for RAD DIAG) IV ONE (01:26)
--- NOTE | 2017-04-07 01:45 | RADRPT ---
EXAM DATE/TIME: 04/07/2017 01:13 [facility] COMPARISON: CT PULMONARY ANGIOGRAM, March 11, 2017, 8:35. INDICATIONS : Shortness of breath. IV CONTRAST: 71 cc Omnipaque 350 (iohexol) IV RADIATION DOSE: 23.07 CTDIvol (mGy) MEDICAL HISTORY : Carcinoma, lung. Hypertension. Chronic obstructive pulmonary disease.Emphysema. SURGICAL HISTORY : Tubal ligation. Port Placement. ENCOUNTER: Initial ACUITY: 1 day PAIN SCALE: 0/10 LOCATION: Bilateral chest TECHNIQUE: Volumetric scanning of the chest was performed using a pulmonary embolism protocol MIP images were re constructed. Using automated exposure control and adjustment of the mA and/or kV according to patien t size, radiation dose was kept as low as reasonably achievable to obtain optimal diagnostic quality images. FINDINGS: PULMONARY ARTERIES: No filling defects are seen in the pulmonary arteries through the segmental level. LUNGS: Diffuse severe emphysematous changes. Stable nodule within left lower lobe. This measures 4 mm. No ne w nodules. No acute infiltrates. PLEURAE: There is no pleural thickening or pleural effusion. MEDIASTINUM: Pronounced mediastinal and hilar adenopathy. This has improved relative to the prior study. For examp le a left hilar lymph node previously measured 3.7 x 2.0 cm and now measures 2.5 x 1.7 cm. The heart is normal in size. Tiny pericardial effusion. Pulmonary arteries are normal in caliber. MUSCULOSKELETAL: Within normal limits for patient age. MISCELLANEOUS: A left hepatic lobe mass is smaller when compared to the prior study. It previously measured 4.6 x 3. 8 cm and now measures 2.6 x 2.1 cm. CONCLUSION: 1. No pulmonary emboli. 2. Reduction in size of the mediastinal and hilar adenopathy. 3. Reduction in size of the left hepatic lobe metastasis. 4. Severe emphysematous changes. Roberth Lockett Jr., MD on April 07, 2017 at 1:34 Board Certified Radiologist. This report was verified electronically.
[2017-04-07] MEDS ORDERED: CHLORHEXIDINE GLUCONATE 2 % 1 PACK (2 CLOTHS)(extra cloths) TOPICAL PRN (02:30)
[2017-04-07] MEDS: RESP: ALBUTEROL 2.5 MG/IPRATROPIUM 0.5 MG NEB (SCH) INH ×4 (03:17→19:24)
[2017-04-07 03:33] LABS: BLOOD, URINE NEG (NEG); COMMENT (UR) CULT NOT INDICATED; CULTURE IF INDICATED CULT NOT INDICATED; GLUCOSE,URINE TRACE mg/dL (NEG); KETONE, URINE NEG (NEG); MUCUS URINE FEW /lpf (OCC); NITRITE,URINE NEG (NEG); PH, URINE 5.5 (5.0-8.5); URINE COLOR LIGHT-YELLOW (YELLW/STRAW)
[2017-04-07] MEDS: ZOLPIDEM TARTRATE 5 MG TAB PO PRN ×2 (03:33→21:29)
[2017-04-07] MEDS: ENOXAPARIN SODIUM 40 MG/0.4 ML SYRINGE SQ SCH (03:34)
[2017-04-07] MEDS: SODIUM CHLOR 0.9% 1000 ML INJ 1,000 ML IV SCH ×2 (03:35→14:12)
[2017-04-07] MEDS: CHLORHEXIDINE GLUCONATE 2 % 1 PACK (2 CLOTHS)(taper/protocol) TOPICAL SCH (03:39)
[2017-04-07] MEDS: DILTIAZEM HCL 60 MG TAB PO SCH ×4 (04:57→22:43)
[2017-04-07] MEDS: methylPREDNISolone SOD SUCC 125 MG/2 ML VIAL IVP SCH ×4 (04:57→22:43)
--- NOTE | 2017-04-07 06:16 | MH ---
cc: [facility] DATE OF ADMISSION: 04/07/2017 TIME OF EXAM The patient was seen at 00:30. CHIEF COMPLAINT Shortness of breath HISTORY OF PRESENT ILLNESS This is a pleasant 51-year-old female with advanced COPD who is on oxygen and nebulizers at home. She also has lung cancer which was diagnosed in January of 2017. She follows with Dr. Martinez. She has been getting chemo. She has a port in the right chest. She had chemo yesterday and today and is due for another dose tomorrow. She does have a small cell lung cancer with liver mets. Today she progressively became more short of breath throughout the day. She was coughing, bringing up some clear to white mucus. She took some Mucinex; it did not help. She feels hot and cold all the timel; this has not changed. She is not having chest pain or pressure, abdominal pain, nausea or vomiting. The main complaint was the shortness of breath. [facility] was called. She has had a total of five breathing treatments. Heart rate is up in the 140s; she is very shaky and anxious and is worried that she will not sleep. She is not in pain at this time. MEDICATIONS ON ADMISSION Please seen the chart. ALLERGIES VALIUM caused a rash. ATIVAN caused her to hallucinate. PAST MEDICAL HISTORY 1. COPD. 2. Hypertension. 3. A-fib. 4. Kidney stones. 5. Non-small cell lung carcinoma with liver mets. PAST SURGICAL HISTORY 1. Hand surgery. 2. Tubal ligation. 3. Right chest port. SOCIAL HISTORY She is not . Tobacco - still smokes a small amount on and off. Alcohol - None. Drugs - tried marijuana for her appetite. No IV drugs. FAMILY HISTORY Not pertinent to this admission. REVIEW OF SYSTEMS She is fatigued. Her appetite is poor. She has lost 10-15 pounds in the past 4-6 weeks. She feels hot and cold on and off. No change in bowel or bladder habits. No edema in her legs. No new rashes or sores. She is anxious and depressed. She does not like being alone. PHYSICAL EXAMINATION VITAL SIGNS: Her heart rate is 146. She is afebrile. Respirations are in the 40s, blood pressure 168/96. GENERAL: This is a 51-year-old female in moderate respiratory distress, sitting on the bed. She is tremulous as well. HEENT: Mucous membranes are moist. There is no jaundice. NECK: Supple. CARDIOVASCULAR SYSTEM: Tachycardic. RESPIRATORY SYSTEM: Lungs are tight. There is diffuse wheezing. GASTROINTESTINAL SYSTEM: Bowel sounds are present. No tenderness, guarding or rebound. SYSTEM: No CVA tenderness. MUSCULOSKELETAL SYSTEM: No edema. Kameron's negative. NEUROLOGICAL EXAM: The patient is awake and oriented x 4. Speech is clear and fluent. She is moving all of her extremities freely. INVESTIGATIONS White count 6.2, hemoglobin 11.1, platelets are 530. ABGs shows pH of 7.31, o2 sat of 89%, pCO2 of 61 and a PO2 of 66 on 2 liters nasal cannula. INR is 0.9. CMP is normal other than a glucose of 175, not fasting. Blood cultures have been drawn and are pending. EKG showed sinus tachycardia. Chest x-ray shows hyperinflation suggesting COPD. IMPRESSION 1. COPD exacerbation. 2. Small cell lung cancer with liver mets. 3. Tachycardia. 4. Immunocompromised status post chemotherapy on 04/06/2017. 5. Anxiety. DISCUSSION The patient is admitted to Dr. Sellers's service. The patient meets inpatient criteria due to the severity of her respiratory distress without which hospitalization she would be at a high risk of going into respiratory failure or septic shock. During her hospital stay, she will initially be placed in the ICU. The case was discussed with Dr. Sandoval. She will be started on CPAP overnight. She has been started on IV antibiotics. CT pulmonary angiogram is ordered and is pending. DVT prophylaxis will be given; this will be increased to full anticoagulation if there is suggestion of a PE. GI prophylaxis will be given. Vistaril will be used for anxiety. Ambien will be used for sleep. We will consult her customer account executive, Dr. Zhu, and her oncologist, Dr. Martinez and further recommendations will be made as her case progresses. End of life issues were briefly discussed with the patient. She is a full code at this point. She states her sister would be her power of stroboscope operator, although she does not have any legal documents for this. She does have four children but again wants her sister to make medical decisions for her. ESTIMATED LENGTH OF STAY 4-5 days. ANTICIPATED DISCHARGE Yet to be determined. Dictated by: Nagi Riggs PA-C Love Sellers MD JP/TOMAS /1:00 AM /5:53 AM PT SEEN AND EXAMINED ABOVE CHART REVIEWED INCLUDING LABS MEDS AND NOTES AND RAD DATA DW PT AND FAMILY AT BEDSIDE PLAN OF CARE DW STUDENT ASSISTANT DW RN MTDD
[2017-04-07] MEDS: FAMOTIDINE 20 MG TAB PO SCH ×2 (08:57→19:56)
[2017-04-07] MEDS: SODIUM CHLORIDE 0.9% FLUSH 10 ML FLUSH IV FLUSH SCH ×2 (08:57→19:55)
[2017-04-07] MEDS: CEFEPIME INJ 1,000 MG in SODIUM CHLORIDE 0.9% INJ 100 ML IV SCH ×2 (08:57→17:52)
[2017-04-07] MEDS: NICOTINE 21 MG/24 HR PATCH TD SCH (08:57)
[2017-04-07] MEDS ORDERED: ALPRAZolam 0.25 MG TAB PO PRN (11:30)
[2017-04-07] MEDS: ALPRAZolam 0.25 MG TAB PO PRN ×2 (17:52→23:00)
--- NOTE | 2017-04-07 19:45 | EKG ---
Date Performed: 04/06/2017 Time Performed: 23:51:33 PTAGE: 51 years EKG: SINUS TACHYCARDIA ABNORMAL RHYTHM ECG PREVIOUS TRACING : 03/11/2017 15.13 Compared to the previous tracing rate faster DOCTOR: Carlos Patel Interpretating Date/Time 04/07/2017 19:44:39
[2017-04-07] MEDS: AZITHROMYCIN 250 MG TAB PO SCH (19:56)
[2017-04-08] VITALS (18 sets, daily range): BP systolic 96–139; BP diastolic 66–75; PULSE 97–118; RESP 12–34; TEMP 98–99.2; O2SAT 98–100
[2017-04-08] MEDS: CEFEPIME INJ 1,000 MG in SODIUM CHLORIDE 0.9% INJ 100 ML IV SCH ×3 (00:22→16:13)
[2017-04-08] MEDS: ENOXAPARIN SODIUM 40 MG/0.4 ML SYRINGE SQ SCH (00:22)
[2017-04-08] MEDS: ALPRAZolam 0.25 MG TAB PO PRN (00:23)
[2017-04-08] MEDS: SODIUM CHLOR 0.9% 1000 ML INJ 1,000 ML IV SCH ×2 (00:23→16:00)
[2017-04-08] MEDS ORDERED: RESP: ALBUTEROL 2.5 MG/IPRATROPIUM 0.5 MG NEB (SCH) NEB ONE (00:45)
[2017-04-08 01:01] LABS: BLOOD GAS BASE EXCESS 6.7 mmol/L (-2-2); BLOOD GAS CARBOXYHEMOGLOBIN 1.4 % (0-4); BLOOD GAS HCO3 36 mmol/L (22-26); BLOOD GAS METHEMOGLOBIN 1.3 % (0-2); BLOOD GAS O2 HGB SATURATION 93 % (90-100); BLOOD GAS OXYGEN CONTENT 15.5 Vol % (12.0-20.0); BLOOD GAS PCO2 116 mmHg (38-42); BLOOD GAS PO2 101 mmHg (61-120); BLOOD GAS TOTAL HGB 11.7 G/DL (12.0-16.0); TEMP CORR TO 98.6
[2017-04-08 01:02] LABS: CRITICAL VALUE YES; DRAW SITE RT RADIAL; FIO2 50 %; NUMBER OF ARTERIAL PUNCTURES 1; STAT YES; ULNAR PULSE PRESENT; VENT SETTINGS IPAP10/EPAP5
[2017-04-08 01:06] LABS: OXYGEN DEVICE BIPAP
[2017-04-08] MEDS ORDERED: ETOMIDATE 20 MG/10 ML VIAL IV PUSH ONE (01:15)
[2017-04-08] MEDS ORDERED: ROCURONIUM INJ 50 MG/5 ML VIAL IV ONE (01:15)
--- NOTE | 2017-04-08 01:34 | PD.PROCEDR ---
Procedure Note Procedure PROCEDURE NOTE PROCEDURE: Endotracheal intubation INDICATION: Acute hypercapnic respiratory failure DETAILS OF PROCEDURE: The patient was placed in optimal position and preoxygenated with 100% FiO2 via [id number]. Oximeter oxygen saturation of 99% was obtained prior to direct laryngoscopy. The patient was administered Etomidate 20 mg IV for sedation, Rocuronium 50 mg IV. Direct laryngoscopy was performed with a 3 Thomas laryngoscope blade and a grade I Cormack-Lehane view was obtained. On single attempt a size 8.0 endotracheal tube was visualized passing through the cords. Correct placement was confirmed with colorimetric CO2 detector. Breath sounds were equal bilaterally. No sounds auscultated over the stomach. The endotracheal tube was secured with a commercial tube kirkpatrick at a depth of 21.5 cm at the lips. The patient was connected to the ventilator. The patient tolerated the procedure well without any apparent complication. Oxygen saturations were maintained greater than 96% at all times. Stat chest x-ray was ordered. Rocio Valdez MD April 08, 2017 01:34
--- NOTE | 2017-04-08 01:44 | PD.CONS ---
[facility] Service Critical Care Medicine Consult Requested By Dr. Sellers Reason for Consult Respiratory failure Primary Care Physician Gisselle Hammond M.D. 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 She has been on palliative chemotherapy since March 08. She presented to [facility] emergency department on 04/07/17 with shortness of breath and has been treated for COPD exacerbation with nebs, Solu-Medrol, cefepime and azithromycin. She was placed on BiPAP and initially had some response. However she refused BiPAP and has becoming progressively lethargic through the course of the evening. An ABG was obtained and she has acute hypercapnic respiratory failure with pH 7.12/PaCO2 116/PA O2 of 101. Her RN discussed code status with her earlier and patient stated "intubate me if I need it". Further history is limited due to patient's altered mental status secondary to hypercapnic respiratory failure. CTA 04/07 was negative for pulmonary embolism. Past Family Social History Allergies: Coded Allergies: Valium (Verified Allergy, Severe, HIVES, 04/07/17) *MDRO Multi-Drug Resistant Organism (Verified Adverse Reaction, Unknown, ) MRSA PCR Screen POSITIVE - 03/19/2016 Past Medical History COPD Hypertension hyperlipidemia Atrial fibrillation Small cell lung carcinoma with liver metastases Past Surgical History Hand surgery. Bilateral Tubal ligation. Port placement, right chest. Reported Medications Atrovent 2 puffs 4 times a day Spiriva 18 g inhaled daily Cardizem 60 g by mouth every 6 hours Lipitor 20 mg by mouth daily at bedtime Active Ordered Medications Current Medications Medications (Trade) Dose Ordered Sig/Rossana Route Start Time Stop Time Status Last Admin (NS 1000 ml Inj) 1,000 ml @ 75 mls/hr [id number] IV 04/07/17 00:52 04/08/17 00:23 (NS Flush) 2 ml BID IV FLUSH 04/07/17 09:00 04/08/17 08:57 (NS Flush) 2 ml UNSCH PRN IV FLUSH 04/07/17 01:00 (SoluMEDROL INJ) 60 mg Q6H IVP 04/07/17 06:00 04/08/17 04:56 (Habitrol 21 Mg Patch.24 Hr) 1 patch DAILY TD 04/07/17 09:00 04/08/17 08:58 (Zithromax) 500 mg Q24H PO 04/07/17 21:00 04/10/17 20:59 04/07/17 19:56 (Lovenox Inj) 40 mg Q24H SQ 04/07/17 01:00 04/08/17 00:22 (Tylenol) 650 mg Q4H PRN PO 04/07/17 01:00 (Zofran Inj) 4 mg Q6H PRN IV 04/07/17 01:00 (Colace) 100 mg BID PRN PO 04/07/17 01:00 (Tums Chew) 1,000 mg TID PRN CHEW 04/07/17 01:00 Zolpidem Tartrate 5 mg 5 mg HS PRN PO 04/07/17 01:00 04/07/17 21:29 (Maxipime Inj/NS Inj) 100 ml @ 200 mls/hr Q8H IV 04/07/17 09:00 04/08/17 08:57 (Pepcid) 20 mg BID PO 04/07/17 09:00 04/08/17 08:56 (Cardizem) 60 mg Q6HR PO 04/07/17 06:00 04/08/17 04:56 Miscellaneous Information Patient in critical care unit? Ass... [id number] .XX 04/07/17 02:30 (Chlorhexidine 2% Cloth) 3 pack DAILY@04 TOPICAL 04/07/17 04:00 04/11/17 04:01 04/08/17 02:49 (Chlorhexidine 2% Cloth) 3 pack UNSCH PRN TOPICAL 04/07/17 02:30 04/12/17 02:17 Alprazolam 0.5 mg 0.5 mg Q6HR PRN PO 04/07/17 18:00 04/07/17 23:00 (Diprivan 1000 Mg/100ml Inj) 100 ml @ 0 mls/hr TITRATE IV 04/08/17 01:15 04/08/17 04:59 (Peridex 0.12% Liq) 15 ml BID@08,20 MT 04/08/17 08:00 04/08/17 08:59 Family History Unable to obtain from patient due to clinical condition. Social History She is not . Long-term history of smoking with ongoing tobacco abuse No alcohol use Drugs - tried marijuana for her appetite. No IV drugs. Physical Exam Vital Signs Vital Signs Date Time Temp Pulse Resp B/P Pulse Ox O2 Delivery O2 Flow Rate FiO2 04/08/17 00:00 106 04/08/17 00:00 98.0 106 34 139/67 98 04/07/17 22:00 122 04/07/17 20:00 131 04/07/17 20:00 98.2 135 34 182/85 98 04/07/17 18:00 127 04/07/17 16:00 97.0 117 39 147/71 99 04/07/17 16:00 117 04/07/17 15:00 131 52 172/83 98 04/07/17 14:30 131 9 166/88 98 04/07/17 14:04 138 46 198/85 99 04/07/17 14:00 133 04/07/17 14:00 133 54 99 04/07/17 13:30 133 41 189/88 92 04/07/17 13:00 128 40 169/81 94 04/07/17 12:30 129 51 174/91 94 04/07/17 12:00 98.9 130 40 172/92 94 04/07/17 12:00 130 04/07/17 12:00 130 40 172/92 94 04/07/17 11:30 126 42 165/81 95 04/07/17 11:00 126 50 159/81 95 04/07/17 10:30 119 40 133/70 97 04/07/17 10:00 121 04/07/17 10:00 121 41 135/68 97 04/07/17 09:30 135 52 174/80 94 04/07/17 09:00 126 38 150/81 96 04/07/17 08:30 132 50 131/99 95 04/07/17 08:00 126 39 132/74 98 04/07/17 08:00 126 04/07/17 08:00 98.4 126 39 132/74 98 04/07/17 07:41 95 Nasal Cannula 2.00 04/07/17 07:31 136 61 192/87 91 04/07/17 07:30 133 43 211/106 91 04/07/17 07:00 118 34 116/67 99 04/07/17 06:00 120 04/07/17 05:00 97 2.00 04/07/17 04:00 98.3 131 49 143/67 99 04/07/17 04:00 131 04/07/17 03:34 97 30 04/07/17 03:17 94 Nasal Cannula 2.00 04/07/17 02:11 98.4 137 20 161/94 97 Physical Exam GENERAL: Critically ill-appearing female with alopecia who is tachypneic on BiPAP with accessory muscle use SKIN: Warm and dry. HEAD: Atraumatic. Normocephalic. EYES: Pupils equal and round. No scleral icterus. ENT: BiPAP mask in place NECK: Trachea midline. No JVD. CARDIOVASCULAR: Port accessed right chest. Tachycardic, regular, sinus tachycardia on monitor with rate in the 130s. No murmurs rubs or gallops appreciated. RESPIRATORY: Very poor air movement bilaterally with scant squeaky wheeze, no Rales or rhonchi. Tachypneic with respiratory rate in the high 40s on BiPAP with significant accessory muscle use GASTROINTESTINAL: Abdomen soft, non-tender, nondistended. Bowel sounds hypoactive MUSCULOSKELETAL: Extremities without clubbing, cyanosis, or edema. NEUROLOGICAL: Lethargic, eyes barely open, withdraws upper extremities to deep noxious stimuli Laboratory Laboratory Tests Test 04/07/17 04/07/17 04/08/17 02:10 03:10 00:47 Nasal Screen MRSA (PCR) MRSA NOT DETECTED Urine Color LIGHT-YELLOW Urine Turbidity CLEAR Urine pH 5.5 Urine Specific [place] 1.043 Urine Protein NEG Urine Glucose (UA) TRACE Urine Ketones NEG Urine Occult Blood NEG Urine Nitrite NEG Urine Bilirubin NEG Urine Urobilinogen LESS THAN 2.0 Urine Leukocyte Esterase NEG Urine RBC LESS THAN 1 Urine WBC LESS THAN 1 Urine Mucus FEW Microscopic Urinalysis Comment CULT NOT INDICATED Blood Gas Puncture Site RT RADIAL Blood Gas Patient Temperature 98.6 Blood Gas HCO3 36 Blood Gas Base Excess 6.7 Blood Gas Oxygen Saturation 93 Arterial Blood pH 7.12 Arterial Blood Partial 116 Pressure CO2 Arterial Blood Partial 101 Pressure O2 Arterial Blood Oxygen Content 15.5 Arterial Blood 1.4 Carboxyhemoglobin Arterial Blood Methemoglobin 1.3 Blood Gas Hemoglobin 11.7 Oxygen Delivery Device BIPAP Blood Gas Ventilator Setting IPAP10/EPAP5 Blood Gas Inspired Oxygen 50 Date/Time Procedure Status Source Growth 04/06/17 23:45 Aerobic Blood Culture - Preliminary Resulted Blood Peripheral NO GROWTH IN 1 DAY 04/06/17 23:45 Anaerobic Blood Culture - Preliminary Resulted Blood Peripheral NO GROWTH IN 1 DAY Result Diagram: 04/06/17 2340 04/06/17 2340 Assessment and Plan Assessment and Plan NEURO: Propofol for sedation RASS target -2 Lortab as needed for pain Fentanyl as needed for breakthrough pain RESP: Metastatic small cell lung cancer Acute hypercapnic respiratory failure Intubated emergently. ventilator bundle, increased DuoNeb every 4 hours, albuterol every 2 hours as needed, continue Solu-Medrol 60 mg IV every 6 hours Pulmonology following, Dr. Zhu CTA 04/07negative for pulmonary embolism CV: History of hypertension History of atrial fibrillation Currently sinus tachycardia Monitor hemodynamics Continue Cardizem 60 mg by mouth every 6 hours GI: Jevity 1.5 advance to target 45 mL per hour and follow-up nutrition recommendations FEN/RENAL: Insert Reddy. Monitor intake and output. Monitor electrolytes. Replace electrolytes as indicated per ICU electrolyte replacement protocol. ID: Send sputum culture now. Continue cefepime and azithromycin 04/07#2. Follow-up blood and urine culture HEME: Small cell lung cancer with liver metastases on palliative chemotherapy Hematology following, Dr. Martinez ENDO: Acute hyperglycemia May be steroid induced. Low-dose insulin sliding scale every 6 hours PROPH: SCDs and Lovenox 40 mg subcutaneous daily for DVT prophylaxis. Pepcid 20 mg twice a day for stress ulcer prophylaxis ACCESS: Port accessed right chest Critical care 50 minutes exclusive of separately billable procedures. Rocio Valdez MD April 08, 2017 01:44
[2017-04-08] MEDS: CHLORHEXIDINE GLUCONATE 2 % 1 PACK (2 CLOTHS)(taper/protocol) TOPICAL SCH (02:49)
[2017-04-08] MEDS: PROPOFOL 1000 MG/100 ML INJ 100 ML IV SCH ×3 (02:50→21:30)
--- NOTE | 2017-04-08 03:07 | RADRPT ---
EXAM DATE/TIME: 04/08/2017 02:19 [place] COMPARISON: CHEST SINGLE AP, April 06, 2017, 23:50. INDICATIONS : E-T tube placement. MEDICAL HISTORY : Carcinoma, lung. Hypertension Chronic obstructive pulmonary disease. SURGICAL HISTORY : Tubal ligation. ENCOUNTER: Subsequent ACUITY: 3 days PAIN SCORE: Non-responsive. LOCATION: Bilateral chest FINDINGS: A single view of the chest demonstrates the lungs to be symmetrically aerated without evidence of mas s, infiltrate or effusion. The lungs are hyperinflated bilaterally. Tip of the endotracheal tube 4 c m proximal to the lia. Right side power port. The cardiomediastinal contours are unremarkable. Os seous structures are intact. CONCLUSION: 1. Endotracheal tube. 2. Hyperinflation suggesting COPD. Roberth Lockett Jr., MD on April 08, 2017 at 3:05 Board Certified Radiologist. This report was verified electronically.
[2017-04-08 03:46] LABS: BLOOD GAS BASE EXCESS 7.8 mmol/L (-2-2); BLOOD GAS CARBOXYHEMOGLOBIN 1.8 % (0-4); BLOOD GAS HCO3 34 mmol/L (22-26); BLOOD GAS METHEMOGLOBIN 1.2 % (0-2); BLOOD GAS O2 HGB SATURATION 96 % (90-100); BLOOD GAS OXYGEN CONTENT 12.7 Vol % (12.0-20.0); BLOOD GAS PCO2 73 mmHg (38-42); BLOOD GAS PO2 135 mmHg (61-120); BLOOD GAS TOTAL HGB 9.2 G/DL (12.0-16.0); TEMP CORR TO 98.6
[2017-04-08 03:47] LABS: CRITICAL VALUE YES; OXYGEN DEVICE VENT
[2017-04-08 03:48] LABS: DRAW SITE RT RADIAL; FIO2 40 %; NUMBER OF ARTERIAL PUNCTURES 1; STAT NO; ULNAR PULSE PRESENT; VENT SETTINGS SEE COMMENTS
[2017-04-08] MEDS: RESP: ALBUTEROL 2.5 MG/IPRATROPIUM 0.5 MG NEB (SCH) INH ×6 (04:21→23:56)
[2017-04-08] MEDS: DILTIAZEM HCL 60 MG TAB PO SCH ×3 (04:56→18:05)
[2017-04-08] MEDS: methylPREDNISolone SOD SUCC 125 MG/2 ML VIAL IVP SCH ×3 (04:56→18:06)
[2017-04-08 05:03] LABS: BACTERIA, URINE RARE /hpf; BLOOD, URINE NEG (NEG); COMMENT (UR) CATH-CULTURE IND; CULTURE IF INDICATED CATH CULTURE IND; GLUCOSE,URINE TRACE mg/dL (NEG); GRANULAR CAST, URINE 1 /lpf; HYALINE CAST, URINE 1 /lpf (RARE); KETONE, URINE NEG (NEG); MUCUS URINE FEW /lpf (OCC); NITRITE,URINE NEG (NEG); PH, URINE 6.5 (5.0-8.5); URINE COLOR LIGHT-YELLOW (YELLW/STRAW)
[2017-04-08 05:39] LABS: BLOOD GAS BASE EXCESS 7.9 mmol/L (-2-2); BLOOD GAS CARBOXYHEMOGLOBIN 1.5 % (0-4); BLOOD GAS HCO3 34 mmol/L (22-26); BLOOD GAS METHEMOGLOBIN 1.3 % (0-2); BLOOD GAS O2 HGB SATURATION 97 % (90-100); BLOOD GAS OXYGEN CONTENT 13.4 Vol % (12.0-20.0); BLOOD GAS PCO2 63 mmHg (38-42); BLOOD GAS PO2 205 mmHg (61-120); BLOOD GAS TOTAL HGB 9.5 G/DL (12.0-16.0); CRITICAL VALUE YES; OXYGEN DEVICE VENTILATOR; TEMP CORR TO 98.6
[2017-04-08 05:40] LABS: DRAW SITE LT RADIAL; FIO2 60 %; NUMBER OF ARTERIAL PUNCTURES 1; STAT NO; ULNAR PULSE PRESENT; VENT SETTINGS PRVC/AC
[2017-04-08 05:59] LABS: HEMATOCRIT 28.5 % (35.0-46.0); MEAN CELL VOLUME 87.9 FL (80.0-100.0); MEAN CORPUSCULAR HEMOGLOBIN 29.2 PG (27.0-34.0); MEAN CORPUSCULAR HGB CONC 33.2 % (32.0-36.0); PLATELET COUNT 400 TH/MM3 (150-450); RED BLOOD COUNT 3.24 MIL/MM3 (4.00-5.30); RED CELL DISTRIBUTION WIDTH 17.4 % (11.6-17.2); REVIEW FLAG FINAL; WHITE BLOOD COUNT 4.4 TH/MM3 (4.0-11.0)
[2017-04-08 06:22] LABS: BICARBONATE 38.8 MEQ/L (21.0-32.0); POTASSIUM 4.1 MEQ/L (3.5-5.1)
--- NOTE | 2017-04-08 06:48 | MB ---
cc: AUDRA ZHU M.D. DATE OF CONSULTATION 04/07/2017 REASON FOR CONSULTATION 1. COPD exacerbation 2. Lung cancer HISTORY OF PRESENT ILLNESS Mrs. Hook is a 51-year-old female who has known history of small cell cancer of the lung treated with chemotherapy and seems to be responding well. She comes to the emergency room with increasing shortness of breath, cough expectoration of yellowish mucoid sputum. Denies history of fever. Had a history of chills. No hemoptysis. No TB or industrial exposure. PAST MEDICAL HISTORY 1. Small cell lung cancer 2. COPD 3. Hypertension 4. Renal calculi 5. Has a right port in the right chest in place. SOCIAL HISTORY Long heavy smoking history, continues to smoke up until the time of admission. FAMILY HISTORY Noncontributory REVIEW OF SYSTEMS 12-point review of systems as per HPI and past history, otherwise negative exam. VITAL SIGNS: Pulse 90, respirations 18, blood pressure 150/90. HEENT: Exam unremarkable. Eyes without icterus. NECK: Without adenopathy or thyroid enlargement. CHEST: Few scattered rhonchi at bases. CARDIAC: PMI distant. S1-S2 audible. No murmur or rub. ABDOMEN: Lax, bowel sounds audible. EXTREMITIES: No clubbing, cyanosis or edema. LABORATORY DATA White count 6000, hemoglobin 11, hematocrit 33, platelets 530,000. Sodium 142, potassium 4.4, BUN 8, creatinine 0.5. IMPRESSION 1. COPD exacerbation 2. Lung cancer post radiation chemotherapy. PLAN The patient will be maintained on oxygen therapy as needed. Bronchodilators will be given. Antibiotic therapy. Steroids will be continued. Course followed closely in the Intensive Care setting and depending on progress proceed further. Prognosis overall is guarded. I do thank you for asking me to partake in Mrs. Hook's care. Audra Zhu MD WWW/EZIO /7:25 PM /6:32 AM
--- NOTE | 2017-04-08 07:58 | MB ---
cc: PEPE TIPTON M.D. DATE OF CONSULTATION 04/07/2017 REASON FOR CONSULTATION Consult requested by Dr. Sellers for follow up of a small cell lung cancer. HISTORY OF PRESENT ILLNESS Chrissy is a pleasant 51-year-old female. She has a history of heavy cigarette smoking. She was diagnosed with small cell lung cancer with extensive liver metastasis in January about 2 months ago. She had a liver biopsy which confirmed metastatic small cell lung cancer. The patient was started on palliative, carboplatin and etoposide chemotherapy on March 08. She has tolerated the first course of chemotherapy extremely well. Her shortness of breath and cough have improved off of the first cycle of chemotherapy. She had the second cycle of chemotherapy two days ago on Wednesday. She had carboplatin and etoposide. Yesterday she had etoposide chemotherapy and then today she was supposed to get the third day of the etoposide chemotherapy. After the chemotherapy yesterday when the patient went home, she became quite short of breath. She had severe anxiety. Paramedics were called and the patient was brought into the emergency room. The patient is now admitted to the hospital. She is a full code. She is complaining of shortness of breath. I have been asked to see the patient for further evaluation. Dr. Zhu, inpatient coder, has also been consulted. REVIEW OF SYSTEMS The patient denies any fever. She has quite a bit of anxiety. She does complaining of shortness of breath. She is gasping for air at times. She has severe COPD. She had a CT angiogram of the chest which did not show any pulmonary embolism. However, it shows the mediastinal hilar lymphadenopathy have reduced in size also. Also the liver metastases have reduced in size. She has severe emphysematous changes noted. The rest of the review of systems is negative. PAST MEDICAL HISTORY 1. Small cell lung cancer with liver metastasis diagnosed 2 months ago. 2. Anxiety disorder. 3. Atrial fibrillation 4. COPD. 5. Hypertension. 6. Kidney stones. PAST SURGICAL HISTORY 1. Zjggni-T-Lulf placement. 2. Hand surgery. 3. Tubal ligation. ALLERGIES VALIUM. MEDICATIONS Please see EMR. FAMILY HISTORY Noncontributory. SOCIAL HISTORY The patient used to smoke cigarettes heavily. Now she claims that she has cut it down to maybe two to three cigarettes a day. She does not drink alcohol. PHYSICAL EXAMINATION GENERAL: A well-developed, well-nourished white female in respiratory distress. VITAL SIGNS: Temperature 98.2, heart rate is 135, blood pressure is 182/85. Respiratory rate is 34. HEENT: PERRLA. EOMI. Anicteric. No oral lesions noted. NECK: No lymphadenopathy noted. LUNGS: Decreased breath sounds on both sides with scattered wheezing. HEART: Tachycardia with no murmur. ABDOMEN: Soft, nontender. EXTREMITIES: No pedal edema. NEUROLOGY: Awake, alert, oriented x 3. SKIN: No significant lesions noted. ASSESSMENT 1. Respiratory distress due to exacerbation of COPD. 2. Small cell lung cancer with liver metastasis status post two cycles of chemotherapy with an excellent response. Both hilar and mediastinal lymphadenopathy and liver metastasis have reduced in size since she has been on chemotherapy. 3. Heavy cigarette smoking. 4. Anxiety disorder. PLAN I have reviewed her available records and I have had extensive discussion with the patient regarding her shortness of breath. Her shortness of breath is due to the exacerbation of COPD. I do not think that her respiratory distress is related to her lung cancer. Her lung cancer is improving with the chemotherapy. Dr. Zhu has been consulted. I have discussed the case with Dr. Zhu regarding the optimal management of her COPD. The patient would benefit from anxiety medications as well. I have discussed the case with the patient's nurse. We will hold off on the chemotherapy which she was scheduled for today. Further recommendations based on her hospital stay. Thank you for asking my opinion. MD ANTWON Logan/TOMAS /10:40 PM /7:47 AM
[2017-04-08] MEDS: FAMOTIDINE 20 MG TAB PO SCH ×2 (08:56→20:05)
[2017-04-08] MEDS: SODIUM CHLORIDE 0.9% FLUSH 10 ML FLUSH IV FLUSH SCH ×2 (08:57→19:48)
[2017-04-08] MEDS: NICOTINE 21 MG/24 HR PATCH TD SCH (08:58)
[2017-04-08] MEDS: CHLORHEXIDINE 0.12% (ORAL KIT) 15 ML CUP MT SCH ×2 (08:59→19:47)
--- NOTE | 2017-04-08 09:51 | HHI.PR ---
Subjective Remarks Patient intubated last night with the respiratory failure Sedated Unable to get any information from patient Nurse at bedside. Objective Objective Results - Vital Signs Date Time Temp Pulse Resp B/P Pulse Ox O2 Delivery O2 Flow Rate FiO2 04/08/17 07:36 100 50 04/08/17 06:00 108 04/08/17 04:21 100 60 04/08/17 04:00 40 04/08/17 04:00 97 04/08/17 04:00 98.2 97 12 96/66 99 04/08/17 02:47 40 04/08/17 02:00 109 04/08/17 01:45 100 40 04/08/17 00:00 106 04/08/17 00:00 98.0 106 34 139/67 98 04/07/17 22:00 122 04/07/17 20:00 131 04/07/17 20:00 98.2 135 34 182/85 98 04/07/17 19:28 97 2.00 04/07/17 18:00 127 04/07/17 16:00 97.0 117 39 147/71 99 04/07/17 16:00 117 04/07/17 15:00 131 52 172/83 98 04/07/17 14:30 131 9 166/88 98 04/07/17 14:04 138 46 198/85 99 04/07/17 14:00 133 04/07/17 14:00 133 54 99 04/07/17 13:30 133 41 189/88 92 04/07/17 13:00 128 40 169/81 94 04/07/17 12:30 129 51 174/91 94 04/07/17 12:00 98.9 130 40 172/92 94 04/07/17 12:00 130 04/07/17 12:00 130 40 172/92 94 04/07/17 11:30 126 42 165/81 95 04/07/17 11:00 126 50 159/81 95 04/07/17 10:30 119 40 133/70 97 04/07/17 10:00 121 04/07/17 10:00 121 41 135/68 97 I/O 04/07/17 04/07/17 04/07/17 04/08/17 04/08/17 04/08/17 07:00 15:00 23:00 07:00 15:00 23:00 Intake Total 699 ml 1462 ml 938 ml 618 ml Output Total 350 ml 275 ml 775 ml 450 ml Balance 349 ml 1187 ml 163 ml 168 ml Intake Oral 240 ml 750 ml 240 ml 0 ml IV Total 459 ml 712 ml 698 ml 618 ml Output Urine Total 350 ml 275 ml 775 ml 450 ml # Voids 2 1 1 0 # Bowel Movements 0 Result Diagram: 04/08/17 0430 04/08/17 0430 Other Results Laboratory Tests Test 04/08/17 04/08/17 04/08/17 04/08/17 00:47 03:00 03:19 04:30 Blood Gas Puncture Site RT RADIAL RT RADIAL Blood Gas Patient Temperature 98.6 98.6 Blood Gas HCO3 36 34 Blood Gas Base Excess 6.7 7.8 Blood Gas Oxygen Saturation 93 96 Arterial Blood pH 7.12 7.29 Arterial Blood Partial 116 73 Pressure CO2 Arterial Blood Partial 101 135 Pressure O2 Arterial Blood Oxygen Content 15.5 12.7 Arterial Blood 1.4 1.8 Carboxyhemoglobin Arterial Blood Methemoglobin 1.3 1.2 Blood Gas Hemoglobin 11.7 9.2 Oxygen Delivery Device BIPAP VENT Blood Gas Ventilator Setting IPAP10/EPAP5 SEE COMMENTS Blood Gas Inspired Oxygen 50 40 Urine Color LIGHT-YELLOW Urine Turbidity CLEAR Urine pH 6.5 Urine Specific [place] 1.015 Urine Protein TRACE Urine Glucose (UA) TRACE Urine Ketones NEG Urine Occult Blood NEG Urine Nitrite NEG Urine Bilirubin NEG Urine Urobilinogen LESS THAN 2.0 Urine Leukocyte Esterase NEG Urine WBC LESS THAN 1 Urine Bacteria RARE Urine Hyaline Casts 1 Urine Granular Casts 1 Urine Mucus FEW Microscopic Urinalysis Comment CATH-CULTURE IND White Blood Count 4.4 Red Blood Count 3.24 Hemoglobin 9.5 Hematocrit 28.5 Mean Corpuscular Volume 87.9 Mean Corpuscular Hemoglobin 29.2 Mean Corpuscular Hemoglobin 33.2 Concent Red Cell Distribution Width 17.4 Platelet Count 400 Mean Platelet Volume 8.6 Sodium Level 144 Potassium Level 4.1 Chloride Level 101 Carbon Dioxide Level 38.8 Anion Gap 4 Blood Urea Nitrogen 18 Creatinine 0.64 Estimat Glomerular Filtration 98 Rate Random Glucose 174 Calcium Level 8.8 Test 04/08/17 05:25 Blood Gas Puncture Site LT RADIAL Blood Gas Patient Temperature 98.6 Blood Gas HCO3 34 Blood Gas Base Excess 7.9 Blood Gas Oxygen Saturation 97 Arterial Blood pH 7.34 Arterial Blood Partial 63 Pressure CO2 Arterial Blood Partial 205 Pressure O2 Arterial Blood Oxygen Content 13.4 Arterial Blood 1.5 Carboxyhemoglobin Arterial Blood Methemoglobin 1.3 Blood Gas Hemoglobin 9.5 Oxygen Delivery Device VENTILATOR Blood Gas Ventilator Setting PRVC/AC Blood Gas Inspired Oxygen 60 Date/Time Procedure Status Source Growth 04/08/17 03:00 Urine Culture Received Urine Catheterized Urine Pending 04/06/17 23:45 Aerobic Blood Culture - Preliminary Resulted Blood Peripheral NO GROWTH IN 1 DAY 04/06/17 23:45 Anaerobic Blood Culture - Preliminary Resulted Blood Peripheral NO GROWTH IN 1 DAY Physical Exam Physical Exam VITAL SIGNS: Reviewed. GENERAL: This is a 51-year-old female intubated and sedated HEENT: Within ET tube in an OG tube CARDIOVASCULAR SYSTEM: Tachycardic. S1 and S2 audible. Heart rate between 100 - 110 sinus tachycardia RESPIRATORY SYSTEM: Good air entry. There is occasional scattered wheezing. Occasional rhonchi bibasally. GASTROINTESTINAL SYSTEM: Bowel sounds are present. No tenderness, guarding or rebound. MUSCULOSKELETAL SYSTEM: Sedated NEUROLOGICAL EXAM: Sedated on vent skin, warm and dry A/P Assessment and Plan 1. COPD exacerbation. 2. Small cell lung cancer with liver mets. 3. Tachycardia. History of atrial fibrillation 4. Immunocompromised status post chemotherapy on 04/06/2017. 5. Anxiety. 6. Respiratory failure DISCUSSION Management management as per pulmonary. Pulmonary input appreciated. Oncology input appreciated. Labs reviewed Anemia post hydration will monitor High bicarbonate secondary to compensatory affect of respiratory acidosis We'll follow cultures X-ray chest report reviewed from April 08 CT PE protocol reviewed no pain. Reduction in size of mediastinal and hilar adenopathy. An reduction in size of left hepatic lobe metastasis. Severe emphysematous changes. Of April 07 Continue IV steroids Continue IV antibiotic Breathing treatments Medications reviewed Continue Cardizem Lovenox for DVT prophylaxis Pepcid for GI prophylaxis Oral feeding She is a full code at this point. As per yesterday according to patient and her sister has power of digital forensics examiner, but no documentation yet Discussed with RN in detail See orders Condition is critical prognosis guarded Labs for tomorrow Sohail Sellers MD April 08, 2017 09:51
[2017-04-08] MEDS ORDERED: POTASSIUM PHOSPHATE INJ 30 MMOL in SODIUM CHLOR 0.9% 250 ML INJ 250 ML IV PRN (10:33)
[2017-04-08] MEDS ORDERED: POTASSIUM PHOSPHATE MONOBASIC 500 MG TAB PO/TUBE PRN (10:33)
[2017-04-08] MEDS ORDERED: GLUCAGON 1 MG/ML VIAL OTHER PRN (10:45)
[2017-04-08] MEDS ORDERED: POTASSIUM CHLOR 40 MEQ PREMIX 100 ML IV PRN ×2 (10:45)
[2017-04-08] MEDS ORDERED: MAGNESIUM SULFATE INJ 4 GM in SODIUM CHLORIDE 0.9% INJ 92 ML IV PRN (10:45)
[2017-04-08] MEDS ORDERED: MAGNESIUM OXIDE 400 MG TAB PO PRN (10:45)
[2017-04-08] MEDS ORDERED: POTASSIUM CHLOR 20 MEQ PREMIX 100 ML IV PRN ×2 (10:45)
[2017-04-08] MEDS ORDERED: DEXTROSE 50% IN WATER 50 ML VIAL(D50) IV PUSH PRN (10:45)
[2017-04-08] MEDS ORDERED: MAGNESIUM SULFATE INJ 2 GM in SODIUM CHLORIDE 0.9% INJ 96 ML IV PRN (10:45)
[2017-04-08] MEDS ORDERED: SODIUM PHOSPHATE INJ 30 MMOL in SODIUM CHLOR 0.9% 250 ML INJ 240 ML IV PRN (10:45)
[2017-04-08] MEDS ORDERED: POTASSIUM CHLORIDE 25 MEQ EFFERVESCENT TAB PO PRN (10:45)
[2017-04-08] MEDS: INSULIN ASPART SUPPLEMENTAL SCALE SQ SCH ×3 (11:45→21:29)
--- NOTE | 2017-04-08 12:52 | PD.ONC.PN ---
Subjective Subjective Remarks Afebrile overnight. Pt resting in bed mechanically ventilated. Per RN she was intubated overnight. Sedated on Propofol Objective Data Date Time Temp Pulse Resp B/P Pulse Ox O2 Delivery O2 Flow Rate FiO2 04/08/17 12:00 118 04/08/17 12:00 98.9 118 12 113/72 100 04/08/17 12:00 50 04/08/17 10:00 107 04/08/17 08:00 98.1 107 12 105/68 100 04/08/17 08:00 107 04/08/17 08:00 50 04/08/17 07:36 100 50 04/08/17 06:00 108 04/08/17 04:21 100 60 04/08/17 04:00 40 04/08/17 04:00 97 04/08/17 04:00 98.2 97 12 96/66 99 04/08/17 02:47 40 04/08/17 02:00 109 04/08/17 01:45 100 40 04/08/17 00:00 106 04/08/17 00:00 98.0 106 34 139/67 98 04/07/17 22:00 122 04/07/17 20:00 131 04/07/17 20:00 98.2 135 34 182/85 98 04/07/17 19:28 97 2.00 04/07/17 18:00 127 04/07/17 16:00 97.0 117 39 147/71 99 04/07/17 16:00 117 04/07/17 15:00 131 52 172/83 98 04/07/17 14:30 131 9 166/88 98 04/07/17 14:04 138 46 198/85 99 04/07/17 14:00 133 04/07/17 14:00 133 54 99 04/07/17 13:30 133 41 189/88 92 04/07/17 13:00 128 40 169/81 94 04/08/17 04/08/17 04/08/17 06:59 14:59 22:59 Intake Total 618 ml Output Total 450 ml Balance 168 ml Result Diagram: 04/08/17 0430 04/08/17 0430 Laboratory Results Laboratory Tests Test 04/08/17 04/08/17 04/08/17 04/08/17 00:47 03:00 03:19 04:30 Blood Gas Puncture Site RT RADIAL RT RADIAL Blood Gas Patient Temperature 98.6 98.6 Blood Gas HCO3 36 mmol/L 34 mmol/L Blood Gas Base Excess 6.7 mmol/L 7.8 mmol/L Blood Gas Oxygen Saturation 93 % 96 % Arterial Blood pH 7.12 7.29 Arterial Blood Partial 116 mmHg 73 mmHg Pressure CO2 Arterial Blood Partial 101 mmHg 135 mmHg Pressure O2 Arterial Blood Oxygen Content 15.5 Vol % 12.7 Vol % Arterial Blood 1.4 % 1.8 % Carboxyhemoglobin Arterial Blood Methemoglobin 1.3 % 1.2 % Blood Gas Hemoglobin 11.7 G/DL 9.2 G/DL Oxygen Delivery Device BIPAP VENT Blood Gas Ventilator Setting IPAP10/EPAP5 SEE COMMENTS Blood Gas Inspired Oxygen 50 % 40 % Urine Color LIGHT-YELLOW Urine Turbidity CLEAR Urine pH 6.5 Urine Specific Sophia 1.015 Urine Protein TRACE mg/dL Urine Glucose (UA) TRACE mg/dL Urine Ketones NEG mg/dL Urine Occult Blood NEG Urine Nitrite NEG Urine Bilirubin NEG Urine Urobilinogen LESS THAN 2.0 MG/DL Urine Leukocyte Esterase NEG Urine WBC LESS THAN 1 /hpf Urine Bacteria RARE /hpf Urine Hyaline Casts 1 /lpf Urine Granular Casts 1 /lpf Urine Mucus FEW /lpf Microscopic Urinalysis Comment CATH-CULTURE IND White Blood Count 4.4 TH/MM3 Red Blood Count 3.24 MIL/MM3 Hemoglobin 9.5 GM/DL Hematocrit 28.5 % Mean Corpuscular Volume 87.9 FL Mean Corpuscular Hemoglobin 29.2 PG Mean Corpuscular Hemoglobin 33.2 % Concent Red Cell Distribution Width 17.4 % Platelet Count 400 TH/MM3 Mean Platelet Volume 8.6 FL Sodium Level 144 MEQ/L Potassium Level 4.1 MEQ/L Chloride Level 101 MEQ/L Carbon Dioxide Level 38.8 MEQ/L Anion Gap 4 MEQ/L Blood Urea Nitrogen 18 MG/DL Creatinine 0.64 MG/DL Estimat Glomerular Filtration 98 ML/MIN Rate Random Glucose 174 MG/DL Calcium Level 8.8 MG/DL Phosphorus Level 3.4 MG/DL Test 04/08/17 05:25 Blood Gas Puncture Site LT RADIAL Blood Gas Patient Temperature 98.6 Blood Gas HCO3 34 mmol/L Blood Gas Base Excess 7.9 mmol/L Blood Gas Oxygen Saturation 97 % Arterial Blood pH 7.34 Arterial Blood Partial 63 mmHg Pressure CO2 Arterial Blood Partial 205 mmHg Pressure O2 Arterial Blood Oxygen Content 13.4 Vol % Arterial Blood 1.5 % Carboxyhemoglobin Arterial Blood Methemoglobin 1.3 % Blood Gas Hemoglobin 9.5 G/DL Oxygen Delivery Device VENTILATOR Blood Gas Ventilator Setting PRVC/AC Blood Gas Inspired Oxygen 60 % Culture Results Microbiology Date/Time Procedure Status Source Growth 04/06/17 23:40 Aerobic Blood Culture - Preliminary Resulted Blood Peripheral NO GROWTH IN 2 DAYS 04/06/17 23:40 Anaerobic Blood Culture - Preliminary Resulted Blood Peripheral NO GROWTH IN 2 DAYS 04/06/17 23:45 Aerobic Blood Culture - Preliminary Resulted Blood Peripheral NO GROWTH IN 2 DAYS 04/06/17 23:45 Anaerobic Blood Culture - Preliminary Resulted Blood Peripheral NO GROWTH IN 2 DAYS 04/08/17 03:00 Urine Culture Received Urine Catheterized Urine Pending Imaging Studies Last 24 hours Impressions Chest X-Ray 04/08/17 0000 Signed Impressions: Service Date/Time: March 02:19 - CONCLUSION: 1. Endotracheal tube. 2. Hyperinflation suggesting COPD. Roberth Lockett Jr., MD Administered Medications Medications (Trade) Dose Ordered Sig/Rossana Route PRN Reason Start Time Stop Time Status Last Admin Dose Admin Sodium Chloride (NS 1000 ml Inj) 1,000 ml @ 75 mls/hr [id number] IV 04/07/17 00:52 04/08/17 00:23 Sodium Chloride (NS Flush) 2 ml BID IV FLUSH 04/07/17 09:00 04/08/17 08:57 Methylprednisolone Sodium Succinate (SoluMEDROL INJ) 60 mg Q6H IVP 04/07/17 06:00 04/08/17 11:46 Nicotine (Habitrol 21 Mg Patch.24 Hr) 1 patch DAILY TD 04/07/17 09:00 04/08/17 08:58 Azithromycin (Zithromax) 500 mg Q24H PO 04/07/17 21:00 04/10/17 20:59 04/07/17 19:56 Enoxaparin Sodium (Lovenox Inj) 40 mg Q24H SQ 04/07/17 01:00 04/08/17 00:22 Zolpidem Tartrate 5 mg 5 mg HS PRN PO INSOMNIA 04/07/17 01:00 04/07/17 21:29 Cefepime HCl/ Sodium Chloride (Maxipime Inj/NS Inj) 100 ml @ 200 mls/hr Q8H IV 04/07/17 09:00 04/08/17 08:57 Famotidine (Pepcid) 20 mg BID PO 04/07/17 09:00 04/08/17 08:56 Diltiazem HCl (Cardizem) 60 mg Q6HR PO 04/07/17 06:00 04/08/17 11:45 Chlorhexidine Gluconate (Chlorhexidine 2% Cloth) 3 pack DAILY@04 TOPICAL 04/07/17 04:00 04/11/17 04:01 04/08/17 02:49 Alprazolam 0.5 mg 0.5 mg Q6HR PRN PO ANXIETY 04/07/17 18:00 04/07/17 23:00 Propofol (Diprivan 1000 Mg/100ml Inj) 100 ml @ 0 mls/hr TITRATE IV 04/08/17 01:15 04/08/17 04:59 Chlorhexidine Gluconate (Peridex 0.12% Liq) 15 ml BID@08,20 MT 04/08/17 08:00 04/08/17 08:59 Insulin Aspart (NovoLOG SUPPLEMENTAL SCALE) 1 Q6H SQ 04/08/17 11:00 04/08/17 11:45 Objective Remarks GENERAL: Chronically ill appearing older female sedated and mechanically ventilated. SKIN: Warm and dry. HEAD: Normocephalic. Alopecia EYES: No scleral icterus. No injection or drainage. NECK: Supple, trachea midline. No JVD or lymphadenopathy. CARDIOVASCULAR: +S1/S2. RESPIRATORY: Scattered rhonchi. GASTROINTESTINAL: Abdomen soft, non-tender, nondistended. EXTREMITIES: No cyanosis, or edema. NEUROLOGICAL: Sedated on propofol. Assessment/Plan Problem List: (1) SCLC (small cell lung carcinoma) Status: Chronic Plan: 04/08/17: Continue supportive care with IV Abx, steroids. -- Started cycle 2 with carboplatin and etoposide on 04/05/17. -- Hold off on future chemo until acute issues resolve. -- This is likely an exacerbation of COPD. Assessment 51 y/o female with history of small cell lung cancer admitted with COPD exacerbation. Attending Statement on vent now, sedated. DR Gipson on the case. will follow. The exam, history, and the medical decision-making described in the above note were completed with the assistance of the mid-level provider. I reviewed and agree with the findings presented. I attest that I had a [id number] encounter with the patient on the same day, and personally performed and documented my assessment and findings in the medical record. Daisy Marquez April 08, 2017 12:51 Alyssa Martinez MD April 08, 2017 22:40
--- NOTE | 2017-04-08 14:17 | HHI.CCPN ---
Subjective Remarks/Hospital Course 51-year-old female with past medical history of small cell lung cancer with liver metastases diagnosed in January 2017, tobacco abuse. She has been on palliative chemotherapy since March 08. She presented to [facility] emergency department on 04/07/17 with shortness of breath and has been treated for COPD exacerbation with nebs, Solu-Medrol, cefepime and azithromycin. She was placed on BiPAP and initially had some response. However she refused BiPAP and has becoming progressively lethargic through the course of the evening. An ABG was obtained and she has acute hypercapnic respiratory failure with pH 7.12/PaCO2 116/PA O2 of 101. Her RN discussed code status with her earlier and patient stated "intubate me if I need it". Further history is limited due to patient's altered mental status secondary to hypercapnic respiratory failure. CTA 04/07 was negative for pulmonary embolism. Subjective: 04/08: CPAP trials attempted patient extremely anxious, unsuccessful. Plan to to transition to Precedex infusion for CPAP trials and weaning. ABG this a.m. 7.34/63/205/34/7.9, but patient gets extremely anxious when CPAP trials were initiated. Objective Vital Signs Date Time Temp Pulse Resp B/P Pulse Ox O2 Delivery O2 Flow Rate FiO2 04/08/17 12:00 118 04/08/17 12:00 98.9 12 113/72 100 04/08/17 12:00 50 04/07/17 19:28 2.00 04/07/17 07:41 Nasal Cannula Intake and Output 04/07/17 04/07/17 04/08/17 08:00 16:00 00:00 Intake Total 699 ml 1462 ml 938 ml Output Total 400 ml 225 ml 775 ml Balance 299 ml 1237 ml 163 ml Result Diagram: 04/08/17 0430 04/08/17 0430 Other Results Laboratory Tests Test 04/08/17 04/08/17 04/08/17 00:47 03:19 05:25 Blood Gas Puncture Site RT RADIAL RT RADIAL LT RADIAL Blood Gas Patient Temperature 98.6 98.6 98.6 Blood Gas HCO3 36 mmol/L 34 mmol/L 34 mmol/L (22-26) (22-26) (22-26) Blood Gas Base Excess 6.7 mmol/L 7.8 mmol/L 7.9 mmol/L (-2-2) (-2-2) (-2-2) Blood Gas Oxygen Saturation 93 % (90-100) 96 % (90-100) 97 % (90-100) Arterial Blood pH 7.12 7.29 7.34 (7.380-7.420) (7.380-7.420) (7.380-7.420) Arterial Blood Partial 116 mmHg 73 mmHg (38-42) 63 mmHg (38-42) Pressure CO2 (38-42) Arterial Blood Partial 101 mmHg 135 mmHg 205 mmHg Pressure O2 (61-120) (61-120) (61-120) Arterial Blood Oxygen Content 15.5 Vol % 12.7 Vol % 13.4 Vol % (12.0-20.0) (12.0-20.0) (12.0-20.0) Arterial Blood 1.4 % (0-4) 1.8 % (0-4) 1.5 % (0-4) Carboxyhemoglobin Arterial Blood Methemoglobin 1.3 % (0-2) 1.2 % (0-2) 1.3 % (0-2) Blood Gas Hemoglobin 11.7 G/DL 9.2 G/DL 9.5 G/DL (12.0-16.0) (12.0-16.0) (12.0-16.0) Oxygen Delivery Device BIPAP VENT VENTILATOR Blood Gas Ventilator Setting IPAP10/EPAP5 SEE COMMENTS PRVC/AC Blood Gas Inspired Oxygen 50 % 40 % 60 % Imaging Last Impressions Chest X-Ray 04/08/17 0000 Signed Impressions: Service Date/Time: March 02:19 - CONCLUSION: 1. Endotracheal tube. 2. Hyperinflation suggesting COPD. Roberth Lockett Jr., MD CT Angiography 04/07/17 0031 Signed Impressions: Service Date/Time: Friday, April 07, 2017 01:13 - CONCLUSION: 1. No pulmonary emboli. 2. Reduction in size of the mediastinal and hilar adenopathy. 3. Reduction in size of the left hepatic lobe metastasis. 4. Severe emphysematous changes. Roberth Lockett Jr., MD Objective Remarks BP 140/87 P 108 100% O2 saturation GENERAL: Critically ill-appearing female with alopecia who is intubated, anxious SKIN: Warm and dry. HEAD: Atraumatic. Normocephalic. EYES: Pupils equal and round. No scleral icterus. ENT: BiPAP mask in place NECK: Trachea midline. No JVD. CARDIOVASCULAR: Port accessed right chest. Tachycardic, 108. No murmurs rubs or gallops appreciated. RESPIRATORY: Mild expiratory wheeze noted to auscultation GASTROINTESTINAL: Abdomen soft, non-tender, nondistended. Bowel sounds hypoactive MUSCULOSKELETAL: Extremities without clubbing, cyanosis, or edema. NEUROLOGICAL: GCS 11 T, when off sedation. Moving extremities 4 Urinary Catheter: Yes Assessment to: Continue Reddy insert reason: Measure Accurate Output Date of Insertion: April 07, 2017 A/P Assessment and Plan NEURO: Discontinue Propofol for sedation, begin Precedex infusion RASS target -2 Lortab as needed for pain Fentanyl as needed for breakthrough pain RESP: Metastatic small cell lung cancer Acute hypercapnic respiratory failure Intubated 04/07 emergently ventilator bundle, increased DuoNeb every 4 hours, albuterol every 2 hours as needed Continue Solu-Medrol 60 mg IV every 6 hours Pulmonology following, Dr. Zhu CTA 04/07negative for pulmonary embolism CV: History of hypertension History of atrial fibrillation Currently sinus tachycardia Monitor hemodynamics Continue Cardizem 60 mg by mouth every 6 hours GI: Jevity 1.5 advance to target 45 mL per hour and follow-up nutrition recommendations FEN/RENAL: Insert Reddy. Monitor intake and output. Monitor electrolytes. Replace electrolytes as indicated per ICU electrolyte replacement protocol. ID: Continue cefepime and azithromycin 04/07 (day 3) 04/07 blood and urine culture- NGTD HEME: Small cell lung cancer with liver metastases on palliative chemotherapy Hematology following, Dr. Martinez ENDO: Acute hyperglycemia May be steroid induced. Low-dose insulin sliding scale every 6 hours PROPH: SCDs and Lovenox 40 mg subcutaneous daily for DVT prophylaxis. Pepcid 20 mg twice a day for stress ulcer prophylaxis ACCESS: Port accessed right chest This patient remains critically ill with one or more organ systems which are or may become a threat to life. I have spent in excess of 35 minutes discontinuously in the care and management of this patient. This time is exclusive of procedures, and includes, but is not limited to, evaluation of the patient, review of the medical record, discussions with family, consultants, nursing staff, or respiratory therapy, and documentation in the medical record. . Physician Tory Chan MD April 08, 2017 14:16
[2017-04-08] MEDS: DEXMEDETOMIDINE INJ 200 MCG in SODIUM CHLORIDE 0.9% INJ 50 ML IV SCH ×3 (16:14→20:24)
[2017-04-08] MEDS: AZITHROMYCIN 250 MG TAB PO SCH (19:51)
[2017-04-08] MEDS: ACETAMINOPHEN/HYDROcodone 325 MG/5 MG TAB PO PRN (20:24)
--- NOTE | 2017-04-08 21:31 | RADRPT ---
EXAM DATE/TIME: 04/08/2017 21:14 [place] COMPARISON: CHEST SINGLE AP, April 08, 2017, 2:19. INDICATIONS : Short of breath MEDICAL HISTORY : Carcinoma, lung. Hypertension Chronic obstructive pulmonary disease. SURGICAL HISTORY : Tubal ligation. ENCOUNTER: Subsequent ACUITY: 3 days PAIN SCORE: Non-responsive. LOCATION: Bilateral chest FINDINGS: Endotracheal to is present in stable position. Nasogastric tube descends to the stomach. Right chest port is again noted. The lungs are stable and grossly clear. Cardiac contours are unchanged. CONCLUSION: No significant change. Abhinav Jackson MD on April 08, 2017 at 21:27 Board Certified Radiologist. This report was verified electronically.
[2017-04-09] VITALS (17 sets, daily range): BP systolic 90–110; BP diastolic 52–72; PULSE 90–118; RESP 12–56; TEMP 97.8–99; O2SAT 97–100
[2017-04-09] MEDS: methylPREDNISolone SOD SUCC 125 MG/2 ML VIAL IVP SCH ×5 (00:23→23:35)
[2017-04-09] MEDS: DILTIAZEM HCL 60 MG TAB PO SCH ×5 (00:24→23:37)
[2017-04-09] MEDS: CEFEPIME INJ 1,000 MG in SODIUM CHLORIDE 0.9% INJ 100 ML IV SCH ×4 (00:24→23:37)
[2017-04-09] MEDS: ENOXAPARIN SODIUM 40 MG/0.4 ML SYRINGE SQ SCH ×2 (00:24→23:37)
[2017-04-09] MEDS: SODIUM CHLOR 0.9% 1000 ML INJ 1,000 ML IV SCH (00:26)
[2017-04-09] MEDS: PROPOFOL 1000 MG/100 ML INJ 100 ML IV SCH ×6 (00:32→23:36)
[2017-04-09] MEDS: CHLORHEXIDINE GLUCONATE 2 % 1 PACK (2 CLOTHS)(taper/protocol) TOPICAL SCH (03:13)
[2017-04-09] MEDS: RESP: ALBUTEROL 2.5 MG/IPRATROPIUM 0.5 MG NEB (SCH) INH ×5 (03:44→20:00)
[2017-04-09] MEDS: INSULIN ASPART SUPPLEMENTAL SCALE SQ SCH ×4 (03:58→23:41)
[2017-04-09 04:42] LABS: BLOOD GAS BASE EXCESS 3.4 mmol/L (-2-2); BLOOD GAS CARBOXYHEMOGLOBIN 1.6 % (0-4); BLOOD GAS HCO3 30 mmol/L (22-26); BLOOD GAS METHEMOGLOBIN 1.3 % (0-2); BLOOD GAS O2 HGB SATURATION 92 % (90-100); BLOOD GAS OXYGEN CONTENT 11.8 Vol % (12.0-20.0); BLOOD GAS PCO2 63 mmHg (38-42); BLOOD GAS PO2 82 mmHg (61-120); TEMP CORR TO 98.6
[2017-04-09 04:43] LABS: CRITICAL VALUE YES; OXYGEN DEVICE VENTILATOR; VENT SETTINGS PRVC / AC
[2017-04-09 04:44] LABS: DRAW SITE RT RADIAL; FIO2 35 %; NUMBER OF ARTERIAL PUNCTURES 1; STAT YES; ULNAR PULSE PRESENT
[2017-04-09 06:13] LABS: HEMATOCRIT 24.8 % (35.0-46.0); MEAN CELL VOLUME 88.5 FL (80.0-100.0); MEAN CORPUSCULAR HEMOGLOBIN 28.8 PG (27.0-34.0); MEAN CORPUSCULAR HGB CONC 32.5 % (32.0-36.0); PLATELET COUNT 373 TH/MM3 (150-450); RED BLOOD COUNT 2.81 MIL/MM3 (4.00-5.30); RED CELL DISTRIBUTION WIDTH 17.6 % (11.6-17.2); REVIEW FLAG FINAL; WHITE BLOOD COUNT 2.8 TH/MM3 (4.0-11.0)
[2017-04-09 06:43] LABS: BICARBONATE 33.9 MEQ/L (21.0-32.0); MAGNESIUM 2.8 MG/DL (1.5-2.5); POTASSIUM 3.9 MEQ/L (3.5-5.1)
[2017-04-09] MEDS ORDERED: BUMETANIDE INJ 1 MG/4 ML VIAL IV PUSH ONE (08:45)
[2017-04-09] MEDS: CHLORHEXIDINE 0.12% (ORAL KIT) 15 ML CUP MT SCH ×2 (08:50→20:45)
--- NOTE | 2017-04-09 08:50 | HHI.CCPN ---
Subjective Remarks/Hospital Course 51-year-old female with past medical history of small cell lung cancer with liver metastases diagnosed in January 2017, tobacco abuse. She has been on palliative chemotherapy since March 08. She presented to [facility] emergency department on 04/07/17 with shortness of breath and has been treated for COPD exacerbation with nebs, Solu-Medrol, cefepime and azithromycin. She was placed on BiPAP and initially had some response. However she refused BiPAP and has becoming progressively lethargic through the course of the evening. An ABG was obtained and she has acute hypercapnic respiratory failure with pH 7.12/PaCO2 116/PA O2 of 101. Her RN discussed code status with her earlier and patient stated "intubate me if I need it". Further history is limited due to patient's altered mental status secondary to hypercapnic respiratory failure. CTA 04/07 was negative for pulmonary embolism. Subjective: 04/08: CPAP trials attempted patient extremely anxious, unsuccessful. Plan to to transition to Precedex infusion for CPAP trials and weaning. ABG this a.m. 7.34/63/205/34/7.9, but patient gets extremely anxious when CPAP trials were initiated. 04/09 Patient is sedated with Diprivan and intubated. Afebrile. Objective Vital Signs Date Time Temp Pulse Resp B/P Pulse Ox O2 Delivery O2 Flow Rate FiO2 04/09/17 07:30 100 35 04/09/17 06:00 97 04/09/17 04:00 98.7 12 90/52 04/07/17 19:28 2.00 04/07/17 07:41 Nasal Cannula Intake and Output 04/08/17 04/08/17 04/09/17 08:00 16:00 00:00 Intake Total 618 ml 1550 ml 1309 ml Output Total 450 ml 250 ml 400 ml Balance 168 ml 1300 ml 909 ml Result Diagram: 04/09/17 0600 04/09/17 0600 Other Results Laboratory Tests Test 04/09/17 04/09/17 04:31 06:00 Blood Gas Puncture Site RT RADIAL Blood Gas Patient Temperature 98.6 Blood Gas HCO3 30 mmol/L Blood Gas Base Excess 3.4 mmol/L Blood Gas Oxygen Saturation 92 % Arterial Blood pH 7.29 Arterial Blood Partial 63 mmHg Pressure CO2 Arterial Blood Partial 82 mmHg Pressure O2 Arterial Blood Oxygen Content 11.8 Vol % Arterial Blood 1.6 % Carboxyhemoglobin Arterial Blood Methemoglobin 1.3 % Blood Gas Hemoglobin 9.0 G/DL Oxygen Delivery Device VENTILATOR Blood Gas Ventilator Setting PRVC / AC Blood Gas Inspired Oxygen 35 % White Blood Count 2.8 TH/MM3 Red Blood Count 2.81 MIL/MM3 Hemoglobin 8.1 GM/DL Hematocrit 24.8 % Mean Corpuscular Volume 88.5 FL Mean Corpuscular Hemoglobin 28.8 PG Mean Corpuscular Hemoglobin 32.5 % Concent Red Cell Distribution Width 17.6 % Platelet Count 373 TH/MM3 Mean Platelet Volume 8.4 FL Sodium Level 144 MEQ/L Potassium Level 3.9 MEQ/L Chloride Level 106 MEQ/L Carbon Dioxide Level 33.9 MEQ/L Anion Gap 4 MEQ/L Blood Urea Nitrogen 38 MG/DL Creatinine 0.80 MG/DL Estimat Glomerular Filtration 76 ML/MIN Rate Random Glucose 217 MG/DL Calcium Level 8.6 MG/DL Phosphorus Level 2.7 MG/DL Magnesium Level 2.8 MG/DL Human Chorionic Gonadotropin, 2 MIU/ML Quant Imaging Last Impressions Chest X-Ray 04/08/17 0000 Signed Impressions: Service Date/Time: March 21:14 - CONCLUSION: No significant change. Abhinav Jackson MD CT Angiography 04/07/17 0031 Signed Impressions: Service Date/Time: Friday, April 07, 2017 01:13 - CONCLUSION: 1. No pulmonary emboli. 2. Reduction in size of the mediastinal and hilar adenopathy. 3. Reduction in size of the left hepatic lobe metastasis. 4. Severe emphysematous changes. Roberth Lockett Jr., MD Objective Remarks GENERAL: Patient is 51yo intubated and sedated. SKIN: Warm and dry. HEAD: Normocephalic. EYES: No scleral icterus. No injection or drainage. NECK: Supple, trachea midline. No JVD or lymphadenopathy. CARDIOVASCULAR: Regular rate and rhythm without murmurs, gallops, or rubs. RESPIRATORY: Breath sounds equal bilaterally. No accessory muscle use. Diminished BS. GASTROINTESTINAL: Abdomen soft, non-tender, nondistended. MUSCULOSKELETAL: No cyanosis, or edema. Neuro: Sedated. Date of Insertion: April 07, 2017 A/P Assessment and Plan NEURO: On Diprivan infusion for sedation. Daily sedation vacation. Precedex infusion to facilitate with weaning trials. RASS target -2 Lortab as needed for pain Fentanyl as needed for breakthrough pain RESP: Metastatic small cell lung cancer Acute hypercapnic respiratory failure Intubated 04/07 emergently Continue with vent support keep sat >92% Bronchodilators, ICU vent bundle, SBT daily as prasanna. Continue Solu-Medrol 60 mg IV every 6 hours Pulmonology following, Dr. Zhu CTA 04/07negative for pulmonary embolism CV: History of hypertension History of atrial fibrillation Monitor HR and BP keep MAP>65mmHg Continue Cardizem 60 mg by mouth every 6 hours GI: Jevity 1.5 advance to target 45 mL per hour and follow-up nutrition recommendations : Monitor renal function, I/O's, electrolytes replacement per protocol. d/c IVF and diurese with Bumex 1mg x1 ID: Continue cefepime and azithromycin 04/07. Monitor for isgns of infections ( Fever, WBC) blood and urine culture- NGTD HEME: Small cell lung cancer with liver metastases on palliative chemotherapy Hematology following, Dr. Martinez ENDO: Acute hyperglycemia On Low-dose insulin sliding scale every 6 hours PROPH: SCDs and Lovenox 40 mg subcutaneous daily for DVT prophylaxis. Pepcid 20 mg twice a day for stress ulcer prophylaxis ACCESS: Port accessed right chest Level 3 . Kareem Schmitz MD April 09, 2017 08:50
[2017-04-09] MEDS: FAMOTIDINE 20 MG TAB PO SCH ×2 (08:51→20:45)
[2017-04-09] MEDS: NICOTINE 21 MG/24 HR PATCH TD SCH (08:51)
[2017-04-09] MEDS: SODIUM CHLORIDE 0.9% FLUSH 10 ML FLUSH IV FLUSH SCH ×2 (08:52→20:46)
--- NOTE | 2017-04-09 10:21 | HHI.PR ---
Subjective Remarks Patient intubated sedated Unable to get any information from patient Discussed with RN Objective Objective Results - Vital Signs Date Time Temp Pulse Resp B/P Pulse Ox O2 Delivery O2 Flow Rate FiO2 04/09/17 08:42 35 04/09/17 07:30 100 35 04/09/17 06:00 97 04/09/17 05:02 99 35 04/09/17 04:00 98.7 95 12 90/52 99 04/09/17 04:00 95 04/09/17 04:00 35 04/09/17 03:47 100 35 04/09/17 02:00 90 04/09/17 00:00 40 04/09/17 00:00 98 04/09/17 00:00 99.0 99 12 98/64 99 04/08/17 23:57 100 35 04/08/17 22:00 97 04/08/17 21:22 100 35 04/08/17 20:00 99 04/08/17 20:00 40 04/08/17 20:00 99.2 99 34 110/75 98 04/08/17 18:00 104 04/08/17 16:00 40 04/08/17 16:00 99.0 112 12 107/66 100 04/08/17 16:00 112 04/08/17 15:45 100 40 04/08/17 14:00 112 04/08/17 12:00 118 04/08/17 12:00 98.9 118 12 113/72 100 04/08/17 12:00 50 I/O 04/08/17 04/08/17 04/08/17 04/09/17 04/09/17 04/09/17 06:59 14:59 22:59 06:59 14:59 22:59 Intake Total 618 ml 1550 ml 1309 ml 1003 ml Output Total 450 ml 250 ml 400 ml 400 ml Balance 168 ml 1300 ml 909 ml 603 ml Intake Oral 0 ml 0 ml IV Total 618 ml 850 ml 987 ml 698 ml Tube Feeding 600 ml 322 ml 305 ml Tube Irrigant 100 ml Output Urine Total 450 ml 250 ml 400 ml 400 ml # Voids 0 0 Result Diagram: 04/09/17 0600 04/09/17 0600 Other Results Laboratory Tests Test 04/09/17 04/09/17 04:31 06:00 Blood Gas Puncture Site RT RADIAL Blood Gas Patient Temperature 98.6 Blood Gas HCO3 30 Blood Gas Base Excess 3.4 Blood Gas Oxygen Saturation 92 Arterial Blood pH 7.29 Arterial Blood Partial 63 Pressure CO2 Arterial Blood Partial 82 Pressure O2 Arterial Blood Oxygen Content 11.8 Arterial Blood 1.6 Carboxyhemoglobin Arterial Blood Methemoglobin 1.3 Blood Gas Hemoglobin 9.0 Oxygen Delivery Device VENTILATOR Blood Gas Ventilator Setting PRVC / AC Blood Gas Inspired Oxygen 35 White Blood Count 2.8 Red Blood Count 2.81 Hemoglobin 8.1 Hematocrit 24.8 Mean Corpuscular Volume 88.5 Mean Corpuscular Hemoglobin 28.8 Mean Corpuscular Hemoglobin 32.5 Concent Red Cell Distribution Width 17.6 Platelet Count 373 Mean Platelet Volume 8.4 Sodium Level 144 Potassium Level 3.9 Chloride Level 106 Carbon Dioxide Level 33.9 Anion Gap 4 Blood Urea Nitrogen 38 Creatinine 0.80 Estimat Glomerular Filtration 76 Rate Random Glucose 217 Calcium Level 8.6 Phosphorus Level 2.7 Magnesium Level 2.8 Human Chorionic Gonadotropin, 2 Quant Date/Time Procedure Status Source Growth 04/08/17 03:00 Urine Culture Received Urine Catheterized Urine Pending 04/06/17 23:45 Aerobic Blood Culture - Preliminary Resulted Blood Peripheral NO GROWTH IN 2 DAYS 04/06/17 23:45 Anaerobic Blood Culture - Preliminary Resulted Blood Peripheral NO GROWTH IN 2 DAYS Physical Exam Physical Exam VITAL SIGNS: Reviewed. GENERAL: This is a 51-year-old female intubated and sedated HEENT: Within ET tube in an OG tube CARDIOVASCULAR SYSTEM: Tachycardic. S1 and S2 audible. Heart rate between 100 - 110 sinus tachycardia RESPIRATORY SYSTEM: Good air entry. There is occasional scattered wheezing. Occasional rhonchi bibasally. GASTROINTESTINAL SYSTEM: Bowel sounds are present. No tenderness, guarding or rebound. MUSCULOSKELETAL SYSTEM: Sedated NEUROLOGICAL EXAM: Sedated on vent skin, warm and dry Date of Insertion: April 07, 2017 A/P Assessment and Plan 1. COPD exacerbation. 2. Small cell lung cancer with liver mets. 3. Tachycardia. History of atrial fibrillation 4. Immunocompromised status post chemotherapy on 04/06/2017. 5. Anxiety. 6. Respiratory failure DISCUSSION Vent Management management as per pulmonary/critical care Appreciate value stream manager help. Discussed with value stream manager on the floor. Pulmonary input appreciated. Oncology input appreciated. Labs reviewed Anemia post hydration will monitor We'll follow cultures, so far negative X-ray chest report reviewed from April 08 CT PE protocol reviewed no pain. Reduction in size of mediastinal and hilar adenopathy. An reduction in size of left hepatic lobe metastasis. Severe emphysematous changes. Of April 07 IV steroids IV antibiotic Breathing treatments Medications reviewed Continue Cardizem Lovenox for DVT prophylaxis Pepcid for GI prophylaxis Oral feeding She is a full code at this point. As per yesterday according to patient and her sister has power of corporate attorney, but no documentation yet Discussed with RN See orders Condition is critical prognosis guarded Labs for tomorrow Sohail Sellers MD April 09, 2017 10:21
--- NOTE | 2017-04-09 13:26 | PD.ONC.PN ---
Subjective Subjective Remarks Afebrile overnight. Patient intubated, no family members at bedside. Objective Data Date Time Temp Pulse Resp B/P Pulse Ox O2 Delivery O2 Flow Rate FiO2 04/09/17 12:00 104 04/09/17 12:00 98.5 104 54 97/72 97 04/09/17 12:00 35 04/09/17 10:00 109 04/09/17 08:42 35 04/09/17 08:00 109 04/09/17 08:00 35 04/09/17 08:00 97.8 109 56 110/68 100 04/09/17 07:30 100 35 04/09/17 06:00 97 04/09/17 05:02 99 35 04/09/17 04:00 98.7 95 12 90/52 99 04/09/17 04:00 95 04/09/17 04:00 35 04/09/17 03:47 100 35 04/09/17 02:00 90 04/09/17 00:00 40 04/09/17 00:00 98 04/09/17 00:00 99.0 99 12 98/64 99 04/08/17 23:57 100 35 04/08/17 22:00 97 04/08/17 21:22 100 35 04/08/17 20:00 99 04/08/17 20:00 40 04/08/17 20:00 99.2 99 34 110/75 98 04/08/17 18:00 104 04/08/17 16:00 40 04/08/17 16:00 99.0 112 12 107/66 100 04/08/17 16:00 112 04/08/17 15:45 100 40 04/08/17 14:00 112 04/09/17 04/09/17 04/09/17 07:00 15:00 23:00 Intake Total 1003 ml Output Total 400 ml Balance 603 ml Result Diagram: 04/09/17 0604/09/17 06 Laboratory Results Laboratory Tests Test 04/09/17 04/09/17 04:31 06:00 Blood Gas Puncture Site RT RADIAL Blood Gas Patient Temperature 98.6 Blood Gas HCO3 30 mmol/L Blood Gas Base Excess 3.4 mmol/L Blood Gas Oxygen Saturation 92 % Arterial Blood pH 7.29 Arterial Blood Partial 63 mmHg Pressure CO2 Arterial Blood Partial 82 mmHg Pressure O2 Arterial Blood Oxygen Content 11.8 Vol % Arterial Blood 1.6 % Carboxyhemoglobin Arterial Blood Methemoglobin 1.3 % Blood Gas Hemoglobin 9.0 G/DL Oxygen Delivery Device VENTILATOR Blood Gas Ventilator Setting PRVC / AC Blood Gas Inspired Oxygen 35 % White Blood Count 2.8 TH/MM3 Red Blood Count 2.81 MIL/MM3 Hemoglobin 8.1 GM/DL Hematocrit 24.8 % Mean Corpuscular Volume 88.5 FL Mean Corpuscular Hemoglobin 28.8 PG Mean Corpuscular Hemoglobin 32.5 % Concent Red Cell Distribution Width 17.6 % Platelet Count 373 TH/MM3 Mean Platelet Volume 8.4 FL Sodium Level 144 MEQ/L Potassium Level 3.9 MEQ/L Chloride Level 106 MEQ/L Carbon Dioxide Level 33.9 MEQ/L Anion Gap 4 MEQ/L Blood Urea Nitrogen 38 MG/DL Creatinine 0.80 MG/DL Estimat Glomerular Filtration 76 ML/MIN Rate Random Glucose 217 MG/DL Calcium Level 8.6 MG/DL Phosphorus Level 2.7 MG/DL Magnesium Level 2.8 MG/DL Human Chorionic Gonadotropin, 2 MIU/ML Quant Culture Results Microbiology Date/Time Procedure Status Source Growth 04/06/17 23:40 Aerobic Blood Culture - Preliminary Resulted Blood Peripheral NO GROWTH IN 3 DAYS 04/06/17 23:40 Anaerobic Blood Culture - Preliminary Resulted Blood Peripheral NO GROWTH IN 3 DAYS 04/06/17 23:45 Aerobic Blood Culture - Preliminary Resulted Blood Peripheral NO GROWTH IN 3 DAYS 04/06/17 23:45 Anaerobic Blood Culture - Preliminary Resulted Blood Peripheral NO GROWTH IN 3 DAYS 04/08/17 03:00 Urine Culture - Preliminary Resulted Urine Catheterized Urine NO GROWTH IN 24 HOURS. Administered Medications Medications (Trade) Dose Ordered Sig/[place]ana Route PRN Reason Start Time Stop Time Status Last Admin Dose Admin Sodium Chloride (NS Flush) 2 ml BID IV FLUSH 04/07/17 09:00 04/09/17 08:52 Methylprednisolone Sodium Succinate (SoluMEDROL INJ) 60 mg Q6H IVP 04/07/17 06:00 04/09/17 11:10 Nicotine (Habitrol 21 Mg Patch.24 Hr) 1 patch DAILY TD 04/07/17 09:00 04/09/17 08:51 Azithromycin (Zithromax) 500 mg Q24H PO 04/07/17 21:00 04/10/17 20:59 04/08/17 19:51 Enoxaparin Sodium (Lovenox Inj) 40 mg Q24H SQ 04/07/17 01:00 04/09/17 00:24 Docusate Sodium (Colace) 100 mg BID PRN PO CONSTIPATION 04/07/17 01:00 04/08/17 19:49 Zolpidem Tartrate 5 mg 5 mg HS PRN PO INSOMNIA 04/07/17 01:00 04/07/17 21:29 Cefepime HCl/ Sodium Chloride (Maxipime Inj/NS Inj) 100 ml @ 200 mls/hr Q8H IV 04/07/17 09:00 04/09/17 08:51 Famotidine (Pepcid) 20 mg BID PO 04/07/17 09:00 04/09/17 08:51 Diltiazem HCl (Cardizem) 60 mg Q6HR PO 04/07/17 06:00 04/09/17 11:11 Miscellaneous Information Patient in critical care unit? Ass... [id number] .XX 04/07/17 02:30 04/07/17 02:30 Chlorhexidine Gluconate (Chlorhexidine 2% Cloth) 3 pack DAILY@04 TOPICAL 04/07/17 04:00 04/11/17 04:01 04/09/17 03:13 Alprazolam (Xanax) 0.5 mg Q6HR PRN PO ANXIETY 04/07/17 18:00 04/07/17 23:00 Chlorhexidine Gluconate (Peridex 0.12% Liq) 15 ml BID@08,20 MT 04/08/17 08:00 04/09/17 08:50 Acetaminophen/ Hydrocodone Bitart ([place] 5-325 Mg) 1 tab Q4H PRN PO PAIN 04/08/17 10:30 04/08/17 20:24 Fentanyl Citrate (fentaNYL INJ) 50 mcg Q1H PRN IV PUSH BREAKTHROUGH PAIN, SEDATION 04/08/17 10:30 04/08/17 19:51 Insulin Aspart 1 1 Q6H SQ 04/08/17 11:00 04/09/17 11:10 Dexmedetomidine HCl 200 mcg/ Sodium Chloride 52 ml @ 0 mls/hr TITRATE IV 04/08/17 14:30 04/08/17 20:24 Propofol (Diprivan 1000 Mg/100ml Inj) 100 ml @ 0 mls/hr TITRATE IV 04/08/17 21:15 04/09/17 09:59 Objective Remarks GENERAL: Middle aged female, supine in bed, intubated SKIN: Warm and dry. HEAD: Normocephalic. EYES: No injection or drainage. NECK: Supple, trachea midline. CARDIOVASCULAR: Regular rate and rhythm RESPIRATORY: anterior mathis with scattered rhonchi. on mechanical ventilation GASTROINTESTINAL: Abdomen nondistended. EXTREMITIES: No cyanosis Assessment/Plan Problem List: (1) SCLC (small cell lung carcinoma) Status: Chronic Plan: 04/09: now intubated. continue antibiotics and steroids. monitor CBC 04/08/17: Continue supportive care with IV Abx, steroids. -- Started cycle 2 with carboplatin and etoposide on 04/05/17. -- Hold off on future chemo until acute issues resolve. -- This is likely an exacerbation of COPD. Assessment 51 y/o female with history of small cell lung cancer admitted with COPD exacerbation. Attending Statement on vent and sedated. Steroids, A/B, Broncodilators. will follow. The exam, history, and the medical decision-making described in the above note were completed with the assistance of the mid-level provider. I reviewed and agree with the findings presented. I attest that I had a [id number] encounter with the patient on the same day, and personally performed and documented my assessment and findings in the medical record. Margo Wan April 09, 2017 13:26 Alyssa Martinez MD April 09, 2017 23:44
[2017-04-09 15:54] LABS: BLOOD GAS BASE EXCESS 8.3 mmol/L (-2-2); BLOOD GAS CARBOXYHEMOGLOBIN 1.5 % (0-4); BLOOD GAS HCO3 34 mmol/L (22-26); BLOOD GAS METHEMOGLOBIN 1.4 % (0-2); BLOOD GAS O2 HGB SATURATION 95 % (90-100); BLOOD GAS OXYGEN CONTENT 12.7 Vol % (12.0-20.0); BLOOD GAS PCO2 61 mmHg (38-42); BLOOD GAS PO2 93 mmHg (61-120); BLOOD GAS TOTAL HGB 9.4 G/DL (12.0-16.0); CRITICAL VALUE YES; DRAW SITE RT RADIAL; FIO2 35 %; NUMBER OF ARTERIAL PUNCTURES 1; OXYGEN DEVICE VENTILATOR; STAT NO; TEMP CORR TO 98.6; ULNAR PULSE PRESENT; VENT SETTINGS PRVC/AC
[2017-04-09] MEDS: AZITHROMYCIN 250 MG TAB PO SCH (20:45)
[2017-04-10] VITALS (25 sets, daily range): BP systolic 105–135; BP diastolic 67–85; PULSE 99–118; RESP 14–46; TEMP 97.4–98.6; O2SAT 97–100
[2017-04-10] MEDS: RESP: ALBUTEROL 2.5 MG/IPRATROPIUM 0.5 MG NEB (SCH) INH ×5 (00:07→19:58)
[2017-04-10] MEDS: CHLORHEXIDINE GLUCONATE 2 % 1 PACK (2 CLOTHS)(taper/protocol) TOPICAL SCH (02:27)
[2017-04-10] MEDS: PROPOFOL 1000 MG/100 ML INJ 100 ML IV SCH ×5 (02:55→21:43)
[2017-04-10] MEDS: DILTIAZEM HCL 60 MG TAB PO SCH ×3 (05:10→17:38)
[2017-04-10] MEDS: methylPREDNISolone SOD SUCC 125 MG/2 ML VIAL IVP SCH ×4 (05:10→21:40)
[2017-04-10] MEDS: INSULIN ASPART SUPPLEMENTAL SCALE SQ SCH ×4 (05:12→23:00)
[2017-04-10 06:51] LABS: AUTOMATED NEUTROPHIL # 5.2 TH/MM3 (1.8-7.7); BASOPHIL % 0.1 % (0.0-2.0); HEMATOCRIT 28.5 % (35.0-46.0); HEMO FLAGS DIFF FINAL; LYMPH % 2.6 % (9.0-44.0); LYMPHOCYTE # 0.1 TH/MM3 (1.0-4.8); MEAN CORPUSCULAR HEMOGLOBIN 28.9 PG (27.0-34.0); MEAN CORPUSCULAR HGB CONC 32.8 % (32.0-36.0); MONO % 0.4 % (0.0-8.0); NEUT % 96.9 % (16.0-70.0); PLATELET COUNT 371 TH/MM3 (150-450); RED BLOOD COUNT 3.24 MIL/MM3 (4.00-5.30); RED CELL DISTRIBUTION WIDTH 17.9 % (11.6-17.2); WHITE BLOOD COUNT 5.4 TH/MM3 (4.0-11.0)
[2017-04-10 07:19] LABS: BICARBONATE 34.7 MEQ/L (21.0-32.0); MAGNESIUM 2.9 MG/DL (1.5-2.5); POTASSIUM 4.2 MEQ/L (3.5-5.1)
[2017-04-10] MEDS: CHLORHEXIDINE 0.12% (ORAL KIT) 15 ML CUP MT SCH ×2 (07:44→21:39)
[2017-04-10] MEDS: CEFEPIME INJ 1,000 MG in SODIUM CHLORIDE 0.9% INJ 100 ML IV SCH ×2 (08:01→17:39)
[2017-04-10] MEDS: FAMOTIDINE 20 MG TAB PO SCH ×2 (08:01→21:38)
[2017-04-10] MEDS: NICOTINE 21 MG/24 HR PATCH TD SCH (08:01)
[2017-04-10] MEDS: POTASSIUM PHOSPHATE MONOBASIC 500 MG TAB PO PRN ×2 (08:01→12:52)
[2017-04-10] MEDS: SODIUM CHLORIDE 0.9% FLUSH 10 ML FLUSH IV FLUSH SCH ×2 (08:02→21:39)
--- NOTE | 2017-04-10 13:41 | HHI.PR ---
Subjective Subjective Remarks anxious, on vent tachy on Precedex nods yes/no, follows simple commands no bm for a few days tolerating tube feedings ok no reported fever Review of Systems Constitutional Constitutional Remarks unable to obtain ROS Vitals/Results Intake & Output 04/09/17 04/09/17 04/10/17 15:00 23:00 07:00 Intake Total 1048 ml 748 ml 750 ml Output Total 1850 ml 300 ml 450 ml Balance -802 ml 448 ml 300 ml IV Total 567 ml 272 ml 289 ml Tube Feeding 381 ml 276 ml 341 ml Tube Irrigant 100 ml Other 200 ml 120 ml Output Urine Total 1850 ml 300 ml 450 ml # Bowel Movements 0 0 Vital Signs Vital Signs Date Time Temp Pulse Resp B/P Pulse Ox O2 Delivery O2 Flow Rate FiO2 04/10/17 12:00 35 04/10/17 12:00 98.3 118 27 113/76 99 04/10/17 12:00 111 04/10/17 11:34 100 35 04/10/17 11:00 114 29 131/85 99 04/10/17 10:00 109 20 129/74 99 04/10/17 10:00 109 04/10/17 09:00 112 28 117/72 99 04/10/17 08:16 99 35 04/10/17 08:00 97.4 104 20 110/76 99 04/10/17 08:00 35 04/10/17 08:00 104 04/10/17 07:00 104 15 105/70 99 04/10/17 06:00 103 04/10/17 04:00 35 04/10/17 04:00 98.3 118 14 110/79 100 04/10/17 04:00 118 04/10/17 03:46 98 35 04/10/17 02:00 113 04/10/17 00:09 98 35 04/10/17 00:00 115 04/10/17 00:00 98.1 115 14 115/68 99 04/10/17 00:00 35 04/09/17 22:00 110 04/09/17 20:01 98 35 04/09/17 20:00 35 04/09/17 20:00 98.2 115 16 107/71 99 04/09/17 20:00 112 04/09/17 18:00 104 04/09/17 16:10 100 35 04/09/17 16:00 35 04/09/17 16:00 118 04/09/17 16:00 98.9 118 14 106/71 100 04/09/17 14:00 114 CBC/BMP: 04/10/17 0533 04/10/17 0533 Lab Results Laboratory Tests Test 04/09/17 04/10/17 15:43 05:33 Blood Gas Puncture Site RT RADIAL Blood Gas Patient Temperature 98.6 Blood Gas HCO3 34 mmol/L Blood Gas Base Excess 8.3 mmol/L Blood Gas Oxygen Saturation 95 % Arterial Blood pH 7.36 Arterial Blood Partial 61 mmHg Pressure CO2 Arterial Blood Partial 93 mmHg Pressure O2 Arterial Blood Oxygen Content 12.7 Vol % Arterial Blood 1.5 % Carboxyhemoglobin Arterial Blood Methemoglobin 1.4 % Blood Gas Hemoglobin 9.4 G/DL Oxygen Delivery Device VENTILATOR Blood Gas Ventilator Setting PRVC/AC Blood Gas Inspired Oxygen 35 % White Blood Count 5.4 TH/MM3 Red Blood Count 3.24 MIL/MM3 Hemoglobin 9.4 GM/DL Hematocrit 28.5 % Mean Corpuscular Volume 88.0 FL Mean Corpuscular Hemoglobin 28.9 PG Mean Corpuscular Hemoglobin 32.8 % Concent Red Cell Distribution Width 17.9 % Platelet Count 371 TH/MM3 Mean Platelet Volume 8.7 FL Neutrophils (%) (Auto) 96.9 % Lymphocytes (%) (Auto) 2.6 % Monocytes (%) (Auto) 0.4 % Eosinophils (%) (Auto) 0.0 % Basophils (%) (Auto) 0.1 % Neutrophils # (Auto) 5.2 TH/MM3 Lymphocytes # (Auto) 0.1 TH/MM3 Monocytes # (Auto) 0.0 TH/MM3 Eosinophils # (Auto) 0.0 TH/MM3 Basophils # (Auto) 0.0 TH/MM3 CBC Comment DIFF FINAL Differential Comment Sodium Level 148 MEQ/L Potassium Level 4.2 MEQ/L Chloride Level 108 MEQ/L Carbon Dioxide Level 34.7 MEQ/L Anion Gap 5 MEQ/L Blood Urea Nitrogen 30 MG/DL Creatinine 0.61 MG/DL Estimat Glomerular Filtration 103 ML/MIN Rate Random Glucose 197 MG/DL Calcium Level 8.7 MG/DL Phosphorus Level 2.2 MG/DL Magnesium Level 2.9 MG/DL Physical Exam General General Appearance: Well Nourished, Anxious Eyes Eye Exam: Pupils Equal, Pupils Reactive Ears & Nose Ears & Nose Exam: Nasal Mucosa [place] Throat Throat Exam: Oral Mucosa [place] & Moist Neck Neck Exam: Neck Supple, Trachea Midline Pulmonary Resp Exam: No Distress, Rhonchi Cardiology CV Exam: Good Perfusion, Tachycardia Gastrointestinal/Abdomen GI Exam: Soft, Non-Tender, Bowel Sounds Present, Non-Distended GI Remarks tube feeding Genitourinary Exam: Clear Urine Remarks DAMON Musculoskeletal MS Exam: Joints Intact Integumentary Skin Exam: Warm, Dry Extremeties Extremities Exam: No Edema, Pedal Pulses Palpable Neurologic Neuro Remarks agitated on vent, moves all ext. VTE Prophylaxis VTE Prophylaxis Meds: Lovenox PUD Prophylasis PUD Remarks Pepcid Assessment/Plan Problem List: (1) Hypercapnic respiratory failure (2) Acute exacerbation of chronic obstructive pulmonary disease (COPD) (3) SCLC (small cell lung carcinoma) Plan: with liver mets (4) Hyperglycemia (5) Depression (6) A-fib (7) Hypertension Assessment/Plan Vent Management management as per pulmonary/critical care Propofol and Precedex for CPAP trial today Duonebs IV steroids empiric antibiotics cultures negative oncology following, input appreciated CT PE protocol reviewed reduction in size of mediastinal and hilar adenopathy. An reduction in size of left hepatic lobe metastasis. Severe emphysematous changes. continue tube feeding Na 148, add free water flushes no bm, add Lactulose Anemia post hydration will monitor hx afib, continue Cardizem remains SR/ST Lovenox for DVT prophylaxis Pepcid for GI prophylaxis Full code condition guarded Labs reviewed D/W RN D/W Dr. Sellers This patient was seen by myself and Dr. Sellers, this note is written his behalf Problem Qualifiers (1) Hypercapnic respiratory failure: Qualified Code: J96.02 - Acute respiratory failure with hypercapnia (2) SCLC (small cell lung carcinoma): Qualified Code: C34.90 - SCLC (small cell lung carcinoma), unspecified laterality (3) Depression: Qualified Code: F32.9 - Depression, unspecified depression type (4) A-fib: Qualified Code: I48.91 - Atrial fibrillation, unspecified type (5) Hypertension: Qualified Code: I10 - Essential hypertension Kristy AndrewsP April 10, 2017 13:41
[2017-04-10] MEDS: ALPRAZolam 0.25 MG TAB PO PRN ×2 (13:43→21:38)
[2017-04-10] MEDS: DEXMEDETOMIDINE INJ 200 MCG in SODIUM CHLORIDE 0.9% INJ 50 ML IV SCH (13:43)
--- NOTE | 2017-04-10 13:46 | HHI.CCPN ---
Subjective Remarks/Hospital Course Afebrile.51-year-old female with past medical history of small cell lung cancer with liver metastases diagnosed in January 2017, tobacco abuse. She has been on palliative chemotherapy since March 08. She presented to [facility] emergency department on 04/07/17 with shortness of breath and has been treated for COPD exacerbation with nebs, Solu-Medrol, cefepime and azithromycin. She was placed on BiPAP and initially had some response. However she refused BiPAP and has becoming progressively lethargic through the course of the evening. An ABG was obtained and she has acute hypercapnic respiratory failure with pH 7.12/PaCO2 116/PA O2 of 101. Her RN discussed code status with her earlier and patient stated "intubate me if I need it". Further history is limited due to patient's altered mental status secondary to hypercapnic respiratory failure. CTA 04/07 was negative for pulmonary embolism. Subjective: 04/08: CPAP trials attempted patient extremely anxious, unsuccessful. Plan to to transition to Precedex infusion for CPAP trials and weaning. ABG this a.m. 7.34/63/205/34/7.9, but patient gets extremely anxious when CPAP trials were initiated. 04/09 Patient is sedated with Diprivan and intubated. Afebrile. 04/10:Afebrile. Notably anxious this afternoon. Patient placed on Precedex infusion CPAP trials initiated. Objective Vital Signs Date Time Temp Pulse Resp B/P Pulse Ox O2 Delivery O2 Flow Rate FiO2 04/10/17 12:00 35 04/10/17 12:00 98.3 118 27 113/76 99 04/07/17 19:28 2.00 04/07/17 07:41 Nasal Cannula Intake and Output 04/09/17 04/09/17 04/10/17 08:00 16:00 00:00 Intake Total 1003 ml 1048 ml 748 ml Output Total 400 ml 1850 ml 300 ml Balance 603 ml -802 ml 448 ml Result Diagram: 04/10/17 0533 04/10/17 0533 Other Results Microbiology Date/Time Procedure Status Source Growth 04/08/17 03:00 Urine Culture - Final Complete Urine Catheterized Urine NO GROWTH IN 48 HOURS. Laboratory Tests Test 04/09/17 15:43 Blood Gas Puncture Site RT RADIAL Blood Gas Patient Temperature 98.6 Blood Gas HCO3 34 mmol/L (22-26) Blood Gas Base Excess 8.3 mmol/L (-2-2) Blood Gas Oxygen Saturation 95 % (90-100) Arterial Blood pH 7.36 (7.380-7.420) Arterial Blood Partial 61 mmHg (38-42) Pressure CO2 Arterial Blood Partial 93 mmHg Pressure O2 (61-120) Arterial Blood Oxygen Content 12.7 Vol % (12.0-20.0) Arterial Blood 1.5 % (0-4) Carboxyhemoglobin Arterial Blood Methemoglobin 1.4 % (0-2) Blood Gas Hemoglobin 9.4 G/DL (12.0-16.0) Oxygen Delivery Device VENTILATOR Blood Gas Ventilator Setting PRVC/AC Blood Gas Inspired Oxygen 35 % Imaging Last Impressions Chest X-Ray 04/08/17 0000 Signed Impressions: Service Date/Time: March 21:14 - CONCLUSION: No significant change. Abhinav Jackson MD CT Angiography 04/07/17 0031 Signed Impressions: Service Date/Time: Friday, April 07, 2017 01:13 - CONCLUSION: 1. No pulmonary emboli. 2. Reduction in size of the mediastinal and hilar adenopathy. 3. Reduction in size of the left hepatic lobe metastasis. 4. Severe emphysematous changes. Roberth Lockett Jr., MD Objective Remarks GENERAL: Patient is 51yo intubated and sedated. SKIN: Warm and dry. HEAD: Normocephalic. EYES: No scleral icterus. No injection or drainage. NECK: Supple, trachea midline. No JVD or lymphadenopathy. CARDIOVASCULAR: Regular rate and rhythm without murmurs, gallops, or rubs. RESPIRATORY: Breath sounds equal bilaterally. No accessory muscle use. Diminished BS. GASTROINTESTINAL: Abdomen soft, non-tender, nondistended. MUSCULOSKELETAL: No cyanosis, or edema. Neuro: Sedated. Urinary Catheter: Yes Date of Insertion: April 07, 2017 A/P Assessment and Plan NEURO: Anxiety disorder On Diprivan infusion for sedation. Daily sedation vacation. Precedex infusion to facilitate with weaning trials. RASS target -2 Lortab as needed for pain Xanax PRN Fentanyl as needed for breakthrough pain RESP: Metastatic small cell lung cancer Acute hypercapnic respiratory failure COPD exacerbation Intubated 04/07 emergently Continue with vent support keep sat >92% Bronchodilators, ICU vent bundle, SBT daily as prasanna. Continue Solu-Medrol 60 mg IV every 6 hours Pulmonology following, Dr. Zhu CTA 04/07negative for pulmonary embolism CV: History of hypertension History of atrial fibrillation Monitor HR and BP keep MAP>65mmHg Continue Cardizem 60 mg by mouth every 6 hours GI: Jevity 1.5 advance to target 45 mL per hour and follow-up nutrition recommendations : Monitor renal function, I/O's, electrolytes replacement per protocol. d/c IVF and diurese with Bumex 1mg x1 ID: Continue cefepime and azithromycin 04/07. Monitor for signs of infections ( Fever, WBC) blood and urine culture- NGTD HEME: Small cell lung cancer with liver metastases on palliative chemotherapy Hematology following, Dr. Martinez ENDO: Acute hyperglycemia On Low-dose insulin sliding scale every 6 hours PROPH: SCDs and Lovenox 40 mg subcutaneous daily for DVT prophylaxis. Pepcid 20 mg twice a day for stress ulcer prophylaxis ACCESS: Port accessed right chest Level 3 . Physician Tory Chan MD April 10, 2017 13:46
[2017-04-10] MEDS: ACETAMINOPHEN/HYDROcodone 325 MG/5 MG TAB PO PRN (21:38)
[2017-04-11] VITALS (19 sets, daily range): BP systolic 120–153; BP diastolic 71–87; PULSE 98–122; RESP 14–34; TEMP 98.4–98.6; O2SAT 96–100
[2017-04-11] MEDS: RESP: ALBUTEROL 2.5 MG/IPRATROPIUM 0.5 MG NEB (SCH) INH ×7 (00:06→23:36)
[2017-04-11] MEDS: ENOXAPARIN SODIUM 40 MG/0.4 ML SYRINGE SQ SCH (01:04)
[2017-04-11] MEDS: DILTIAZEM HCL 60 MG TAB PO SCH ×4 (01:04→17:48)
[2017-04-11] MEDS: CEFEPIME INJ 1,000 MG in SODIUM CHLORIDE 0.9% INJ 100 ML IV SCH ×3 (01:05→17:49)
--- NOTE | 2017-04-11 04:42 | RADRPT ---
EXAM DATE/TIME: 04/11/2017 03:49 [place] COMPARISON: CHEST SINGLE AP, April 08, 2017, 21:14. INDICATIONS : Shortness of breath, possible pulmonary disease. MEDICAL HISTORY : Carcinoma, lung. Hypertension Chronic obstructive pulmonary disease. SURGICAL HISTORY : Tubal ligation. ENCOUNTER: Subsequent ACUITY: 4 - 6 days PAIN SCORE: Non-responsive. LOCATION: Bilateral chest FINDINGS: The support devices remain in place. There is no pneumothorax. A single view of the chest demonstrate s the lungs to be symmetrically aerated without evidence of mass, infiltrate or effusion. The lung fi elds are hyperaerated. The cardiomediastinal contours are unremarkable. Osseous structures are inta ct. CONCLUSION: The lung mathis remain grossly clear. No significant change compared to the prior study. Guille Flores MD on April 11, 2017 at 4:39 Board Certified Radiologist. This report was verified electronically.
[2017-04-11] MEDS: INSULIN ASPART SUPPLEMENTAL SCALE SQ SCH ×3 (05:00→23:00)
[2017-04-11] MEDS: methylPREDNISolone SOD SUCC 125 MG/2 ML VIAL IVP SCH ×2 (06:06→15:06)
[2017-04-11] MEDS: ACETAMINOPHEN/HYDROcodone 325 MG/5 MG TAB PO PRN (06:07)
[2017-04-11] MEDS: ALPRAZolam 0.25 MG TAB PO PRN (06:07)
[2017-04-11] MEDS: CHLORHEXIDINE 0.12% (ORAL KIT) 15 ML CUP MT SCH (07:08)
[2017-04-11] MEDS: DEXMEDETOMIDINE INJ 200 MCG in SODIUM CHLORIDE 0.9% INJ 50 ML IV SCH (08:07)
[2017-04-11] MEDS: FAMOTIDINE 20 MG TAB PO SCH (08:08)
[2017-04-11] MEDS: LACTULOSE SYRUP 20 GM/30 ML CUP PO PRN (08:15)
[2017-04-11] MEDS: SODIUM CHLORIDE 0.9% FLUSH 10 ML FLUSH IV FLUSH SCH (09:00)
--- NOTE | 2017-04-11 09:54 | HHI.PR ---
Subjective Remarks Patient intubated sedated Unable to get any information from patient Objective Objective Results - Vital Signs Date Time Temp Pulse Resp B/P Pulse Ox O2 Delivery O2 Flow Rate FiO2 04/11/17 08:20 99 35 04/11/17 08:00 35 04/11/17 08:00 98.4 105 31 153/87 97 04/11/17 08:00 106 04/11/17 06:00 122 04/11/17 04:07 99 35 04/11/17 04:00 114 04/11/17 04:00 98.6 114 34 141/87 98 04/11/17 04:00 35 04/11/17 02:00 104 04/11/17 01:21 99 35 04/11/17 00:00 98.5 100 27 120/78 99 04/11/17 00:00 35 04/11/17 00:00 100 04/10/17 22:43 100 35 04/10/17 22:00 110 04/10/17 20:00 35 04/10/17 20:00 101 04/10/17 20:00 98.5 110 16 127/81 100 04/10/17 19:55 97 35 04/10/17 18:00 99 16 120/72 97 04/10/17 18:00 99 04/10/17 17:00 103 22 135/81 97 04/10/17 16:00 99 04/10/17 16:00 98.6 100 28 106/67 98 04/10/17 16:00 35 04/10/17 15:00 113 46 124/80 98 04/10/17 14:32 98 35 04/10/17 14:00 107 04/10/17 14:00 111 33 131/76 98 04/10/17 13:00 114 46 97 04/10/17 12:00 35 04/10/17 12:00 98.3 118 27 113/76 99 04/10/17 12:00 111 04/10/17 11:34 100 35 04/10/17 11:00 114 29 131/85 99 04/10/17 10:00 109 20 129/74 99 04/10/17 10:00 109 I/O 04/10/17 04/10/17 04/10/17 04/11/17 04/11/17 04/11/17 07:00 15:00 23:00 07:00 15:00 23:00 Intake Total 750 ml 720 ml 406 ml 574 ml Output Total 450 ml 600 ml 300 ml 450 ml Balance 300 ml 120 ml 106 ml 124 ml IV Total 289 ml 286 ml 101 ml 225 ml Tube Feeding 341 ml 434 ml 305 ml 349 ml Other 120 ml Output Urine Total 450 ml 600 ml 300 ml 450 ml # Bowel Movements 0 Result Diagram: 04/10/17 0533 04/10/17 0533 Other Results Date/Time Procedure Status Source Growth 04/08/17 03:00 Urine Culture - Final Complete Urine Catheterized Urine NO GROWTH IN 48 HOURS. 04/06/17 23:45 Aerobic Blood Culture - Preliminary Resulted Blood Peripheral NO GROWTH IN 4 DAYS 04/06/17 23:45 Anaerobic Blood Culture - Preliminary Resulted Blood Peripheral NO GROWTH IN 4 DAYS Physical Exam Physical Exam VITAL SIGNS: Reviewed. GENERAL: This is a 51-year-old female intubated and sedated HEENT: Within ET tube in an OG tube CARDIOVASCULAR SYSTEM: Tachycardic. S1 and S2 audible. Heart rate between 100 - 110 sinus tachycardia RESPIRATORY SYSTEM: Good air entry. There is occasional scattered wheezing. Occasional rhonchi bibasally. GASTROINTESTINAL SYSTEM: Bowel sounds are present. No tenderness, guarding or rebound. MUSCULOSKELETAL SYSTEM: Sedated NEUROLOGICAL EXAM: Sedated on vent skin, warm and dry Date of Insertion: April 07, 2017 A/P Assessment and Plan (1) Hypercapnic respiratory failure (2) Acute exacerbation of chronic obstructive pulmonary disease (COPD) (3) SCLC (small cell lung carcinoma) with liver mets (4) Hyperglycemia (5) Depression (6) A-fib (7) Hypertension Plan Vent Management management as per pulmonary/critical care Sedation per critical care for CPAP trial today Duonebs IV steroids empiric antibiotics cultures negative oncology following, input appreciated CT PE protocol reviewed reduction in size of mediastinal and hilar adenopathy. An reduction in size of left hepatic lobe metastasis. Severe emphysematous changes. continue tube feeding Na 148, add free water flushes no bm, add Lactulose Anemia post hydration will monitor Slight hypernatremia will monitor hx afib, continue Cardizem remains SR/ST Lovenox for DVT prophylaxis Pepcid for GI prophylaxis Full code condition critical Labs reviewed Labs for tomorrow Sohail Sellers MD April 11, 2017 09:54
[2017-04-11 10:43] LABS: HEMATOCRIT 28.6 % (35.0-46.0); MEAN CELL VOLUME 88.2 FL (80.0-100.0); MEAN CORPUSCULAR HGB CONC 32.9 % (32.0-36.0); PLATELET COUNT 394 TH/MM3 (150-450); RED BLOOD COUNT 3.25 MIL/MM3 (4.00-5.30); RED CELL DISTRIBUTION WIDTH 17.8 % (11.6-17.2); REVIEW FLAG FINAL; WHITE BLOOD COUNT 4.6 TH/MM3 (4.0-11.0)
--- NOTE | 2017-04-11 10:52 | HHI.CCPN ---
Subjective Remarks/Hospital Course Afebrile.51-year-old female with past medical history of small cell lung cancer with liver metastases diagnosed in January 2017, tobacco abuse. She has been on palliative chemotherapy since March 08. She presented to [facility] emergency department on 04/07/17 with shortness of breath and has been treated for COPD exacerbation with nebs, Solu-Medrol, cefepime and azithromycin. She was placed on BiPAP and initially had some response. However she refused BiPAP and has becoming progressively lethargic through the course of the evening. An ABG was obtained and she has acute hypercapnic respiratory failure with pH 7.12/PaCO2 116/PA O2 of 101. Her RN discussed code status with her earlier and patient stated "intubate me if I need it". Further history is limited due to patient's altered mental status secondary to hypercapnic respiratory failure. CTA 04/07 was negative for pulmonary embolism. Subjective: 04/08: CPAP trials attempted patient extremely anxious, unsuccessful. Plan to to transition to Precedex infusion for CPAP trials and weaning. ABG this a.m. 7.34/63/205/34/7.9, but patient gets extremely anxious when CPAP trials were initiated. 04/09 Patient is sedated with Diprivan and intubated. Afebrile. 04/10:Afebrile. Notably anxious this afternoon. Patient placed on Precedex infusion CPAP trials initiated. 04/11: Continue attempts at CPAP trials, one Precedex unsuccessful. Patient becomes extremely anxious despite Xanax. Patient now continues on propofol sedation for mechanical ventilation synchrony. Objective Vital Signs Date Time Temp Pulse Resp B/P Pulse Ox O2 Delivery O2 Flow Rate FiO2 04/11/17 10:00 118 04/11/17 08:20 99 35 04/11/17 08:00 98.4 31 153/87 04/07/17 19:28 2.00 04/07/17 07:41 Nasal Cannula Intake and Output 04/10/17 04/10/17 04/11/17 08:00 16:00 00:00 Intake Total 750 ml 720 ml 406 ml Output Total 450 ml 600 ml 300 ml Balance 300 ml 120 ml 106 ml Result Diagram: 04/10/17 0533 04/10/17 0533 Imaging Last Impressions Chest X-Ray 04/08/17 0000 Signed Impressions: Service Date/Time: March 21:14 - CONCLUSION: No significant change. Abhinav Jackson MD CT Angiography 04/07/17 0031 Signed Impressions: Service Date/Time: Friday, April 07, 2017 01:13 - CONCLUSION: 1. No pulmonary emboli. 2. Reduction in size of the mediastinal and hilar adenopathy. 3. Reduction in size of the left hepatic lobe metastasis. 4. Severe emphysematous changes. Roberth Lockett Jr., MD Objective Remarks BP 129/71 P 71 O2 saturation 97% GENERAL: Patient is 51yo intubated and sedated. SKIN: Warm and dry. HEAD: Normocephalic. EYES: No scleral icterus. No injection or drainage. NECK: Supple, trachea midline. No JVD or lymphadenopathy. CARDIOVASCULAR: Regular rate and rhythm without murmurs, gallops, or rubs. RESPIRATORY: Breath sounds equal bilaterally. No accessory muscle use. Diminished BS. GASTROINTESTINAL: Abdomen soft, non-tender, nondistended. MUSCULOSKELETAL: No cyanosis, or edema. Neuro: Sedated. Date of Insertion: April 07, 2017 A/P Assessment and Plan NEURO: Anxiety disorder On Diprivan infusion for sedation. Daily sedation vacation. Continue Precedex infusion to facilitate with weaning trials. RASS target -2 Lortab as needed for pain Xanax PRN Fentanyl as needed for breakthrough pain RESP: Metastatic small cell lung cancer Acute hypercapnic respiratory failure COPD exacerbation Intubated 04/07 emergently Continue with vent support keep sat >92% Bronchodilators, ICU vent bundle, SBT daily as prasanna. Continue Solu-Medrol 60 mg IV every 6 hours Pulmonology following, Dr. Zhu CTA 04/07negative for pulmonary embolism CV: History of hypertension History of atrial fibrillation Monitor HR and BP keep MAP>65mmHg Continue Cardizem 60 mg by mouth every 6 hours GI: Jevity 1.5 advance to target 45 mL per hour and follow-up nutrition recommendations : Monitor renal function, I/O's, electrolytes replacement per protocol. d/c IVF and diurese with Bumex 1mg x1 ID: Continue cefepime and azithromycin 04/07. Monitor for signs of infections ( Fever, WBC) blood and urine culture- NGTD HEME: Small cell lung cancer with liver metastases on palliative chemotherapy Hematology following, Dr. Juan LUNSFORD: Acute hyperglycemia On Low-dose insulin sliding scale every 6 hours PROPH: SCDs and Lovenox 40 mg subcutaneous daily for DVT prophylaxis. Pepcid 20 mg twice a day for stress ulcer prophylaxis ACCESS: Port accessed right chest Level 3 . Physician Tory Chan MD April 11, 2017 10:52
[2017-04-11 11:05] LABS: BICARBONATE 37.6 MEQ/L (21.0-32.0); MAGNESIUM 2.9 MG/DL (1.5-2.5); POTASSIUM 4.3 MEQ/L (3.5-5.1)
[2017-04-11] MEDS ORDERED: HYDROmorphone HCL PF 2 MG/ML VIAL IV ONE (11:45)
[2017-04-11] MEDS: fentaNYL 2,500 MCG/NS 250 ML IV SCH (11:59)
[2017-04-11] MEDS: PROPOFOL 1000 MG/100 ML INJ 100 ML IV SCH ×2 (13:32→15:08)
[2017-04-12] VITALS (23 sets, daily range): BP systolic 109–202; BP diastolic 77–121; PULSE 91–119; RESP 14–42; TEMP 97.5–98.6; O2SAT 95–100
[2017-04-12] MEDS: PROPOFOL 1000 MG/100 ML INJ 100 ML IV SCH ×2 (03:47→22:13)
[2017-04-12] MEDS: DILTIAZEM HCL 60 MG TAB PO SCH ×5 (03:48→22:11)
[2017-04-12] MEDS: ENOXAPARIN SODIUM 40 MG/0.4 ML SYRINGE SQ SCH (03:48)
[2017-04-12] MEDS: SODIUM CHLORIDE 0.9% FLUSH 10 ML FLUSH IV FLUSH SCH ×3 (03:48→20:11)
[2017-04-12] MEDS: FAMOTIDINE 20 MG TAB PO SCH ×3 (03:48→20:10)
[2017-04-12] MEDS: methylPREDNISolone SOD SUCC 125 MG/2 ML VIAL IVP SCH ×4 (03:48→20:12)
[2017-04-12] MEDS: CHLORHEXIDINE 0.12% (ORAL KIT) 15 ML CUP MT SCH ×3 (03:49→20:11)
[2017-04-12] MEDS: CEFEPIME INJ 1,000 MG in SODIUM CHLORIDE 0.9% INJ 100 ML IV SCH ×3 (03:51→16:29)
[2017-04-12] MEDS: RESP: ALBUTEROL 2.5 MG/IPRATROPIUM 0.5 MG NEB (SCH) INH ×6 (04:06→23:33)
[2017-04-12] MEDS: INSULIN ASPART SUPPLEMENTAL SCALE SQ SCH ×4 (04:25→23:00)
[2017-04-12] MEDS: ALPRAZolam 0.25 MG TAB PO PRN ×3 (09:51→22:10)
[2017-04-12] MEDS: DEXMEDETOMIDINE INJ 200 MCG in SODIUM CHLORIDE 0.9% INJ 50 ML IV SCH ×5 (09:51→20:13)
--- NOTE | 2017-04-12 12:28 | PD.ONC.PN ---
Subjective Subjective Remarks Afebrile overnight. Patient remains intubated, currently on CPAP. sedated. Objective Data Date Time Temp Pulse Resp B/P Pulse Ox O2 Delivery O2 Flow Rate FiO2 04/12/17 12:00 98.6 93 27 139/80 98 04/12/17 12:00 35 04/12/17 12:00 94 04/12/17 10:00 98 04/12/17 08:15 98 35 04/12/17 08:00 35 04/12/17 08:00 97.5 96 14 138/78 99 04/12/17 08:00 97 04/12/17 06:00 92 04/12/17 04:07 100 35 04/12/17 04:00 35 04/12/17 04:00 118 04/12/17 04:00 98.6 118 34 134/89 98 04/12/17 02:12 99 35 04/12/17 02:00 101 04/12/17 00:00 35 04/12/17 00:00 98.5 111 14 109/77 100 04/12/17 00:00 111 04/11/17 22:45 98 35 04/11/17 22:00 106 04/11/17 20:00 35 04/11/17 20:00 98.6 104 14 127/73 97 04/11/17 20:00 104 04/11/17 19:30 96 35 04/11/17 18:00 98 04/11/17 16:00 35 04/11/17 16:00 105 04/11/17 16:00 104 14 124/71 97 04/11/17 14:33 99 35 04/11/17 14:00 100 04/12/17 04/12/17 04/12/17 07:00 15:00 23:00 Intake Total 1099 ml Output Total 600 ml Balance 499 ml Result Diagram: 04/11/17 1010 04/11/17 1010 Administered Medications Medications (Trade) Dose Ordered Sig/Rossana Route PRN Reason Start Time Stop Time Status Last Admin Dose Admin Sodium Chloride (NS Flush) 2 ml BID IV FLUSH 04/07/17 09:00 04/12/17 09:00 Enoxaparin Sodium (Lovenox Inj) 40 mg Q24H SQ 04/07/17 01:00 04/12/17 03:48 Docusate Sodium (Colace) 100 mg BID PRN PO CONSTIPATION 04/07/17 01:00 04/08/17 19:49 Zolpidem Tartrate 5 mg 5 mg HS PRN PO INSOMNIA 04/07/17 01:00 04/07/17 21:29 Cefepime HCl/ Sodium Chloride (Maxipime Inj/NS Inj) 100 ml @ 200 mls/hr Q8H IV 04/07/17 09:00 04/12/17 09:17 Famotidine (Pepcid) 20 mg BID PO 04/07/17 09:00 04/12/17 09:17 Diltiazem HCl (Cardizem) 60 mg Q6HR PO 04/07/17 06:00 04/12/17 11:41 Miscellaneous Information Patient in critical care unit? Ass... [id number] .XX 04/07/17 02:30 04/07/17 02:30 Alprazolam (Xanax) 0.5 mg Q6HR PRN PO ANXIETY 04/07/17 18:00 04/12/17 09:51 Chlorhexidine Gluconate (Peridex 0.12% Liq) 15 ml BID@08,20 MT 04/08/17 08:00 04/12/17 07:45 Acetaminophen/ Hydrocodone Bitart ([place] 5-325 Mg) 1 tab Q4H PRN PO PAIN 04/08/17 10:30 04/11/17 06:07 Fentanyl Citrate (fentaNYL INJ) 50 mcg Q1H PRN IV PUSH BREAKTHROUGH PAIN, SEDATION 04/08/17 10:30 04/08/17 19:51 Potassium Phosphate (K-Phos) 2,000 mg Q4H PRN PO For Phosphorus < 2.5 mg/dL 04/08/17 10:45 04/10/17 12:52 Insulin Aspart 1 1 Q6H SQ 04/08/17 11:00 04/12/17 10:10 Dexmedetomidine HCl 200 mcg/ Sodium Chloride 52 ml @ 0 mls/hr TITRATE IV 04/08/17 14:30 04/12/17 11:40 Propofol (Diprivan 1000 Mg/100ml Inj) 100 ml @ 0 mls/hr TITRATE IV 04/08/17 21:15 04/12/17 03:47 Lactulose (Lactulose Liq) 30 ml DAILY PRN PO constipation 04/10/17 13:45 04/11/17 08:15 Methylprednisolone Sodium Succinate 60 mg 60 mg Q8HR IVP 04/10/17 14:00 04/12/17 04:26 Fentanyl Citrate (fentaNYL DRIP) 250 ml @ 0 mls/hr TITRATE IV 04/11/17 11:30 04/11/17 11:59 Objective Remarks GENERAL: Intubated, sedated female. SKIN: Warm and dry. HEAD: Normocephalic. OG tube in place, receiving TF (Jevity 1.5) EYES: No injection or drainage. NECK: Supple, trachea midline. CARDIOVASCULAR: Regular rate and rhythm RESPIRATORY: anterior mathis clear. on CPAP GASTROINTESTINAL: Abdomen soft, non-tender, nondistended. EXTREMITIES: No cyanosis. bilateral SCD's in place. NEUROLOGICAL: intubated, sedated Assessment/Plan Problem List: (1) SCLC (small cell lung carcinoma) Status: Chronic Plan: 04/12: On Cefepime + solu-medrol. CPAP trials today. unable to resume chemo until current issues resolved 04/08/17: Continue supportive care with IV Abx, steroids. -- s/p C2 w/ carboplatin and etoposide on 04/05/17. Assessment 51 y/o female with history of small cell lung cancer admitted with COPD exacerbation. Attending Statement sedated, on vent, CPAP Solumedrol, and bronchodilators. d/w RN The exam, history, and the medical decision-making described in the above note were completed with the assistance of the mid-level provider. I reviewed and agree with the findings presented. I attest that I had a [id number] encounter with the patient on the same day, and personally performed and documented my assessment and findings in the medical record. Problem Qualifiers (1) SCLC (small cell lung carcinoma): Qualified Code: C34.90 - SCLC (small cell lung carcinoma), unspecified laterality Margo Wan April 12, 2017 12:28 Alyssa Martinez MD April 12, 2017 23:22
--- NOTE | 2017-04-12 13:03 | HHI.PR ---
Subjective Remarks Eyes open, weak, responded briefly to verbal stimuli Ventilator management Oral gastric tube with feedings 45 cc an hour Afebrile Color pale (Cailin Quan) Objective Objective Results - Vital Signs Date Time Temp Pulse Resp B/P Pulse Ox O2 Delivery O2 Flow Rate FiO2 04/12/17 12:00 98.6 93 27 139/80 98 04/12/17 12:00 35 04/12/17 12:00 94 04/12/17 10:00 98 04/12/17 08:15 98 35 04/12/17 08:00 35 04/12/17 08:00 97.5 96 14 138/78 99 04/12/17 08:00 97 04/12/17 06:00 92 04/12/17 04:07 100 35 04/12/17 04:00 35 04/12/17 04:00 118 04/12/17 04:00 98.6 118 34 134/89 98 04/12/17 02:12 99 35 04/12/17 02:00 101 04/12/17 00:00 35 04/12/17 00:00 98.5 111 14 109/77 100 04/12/17 00:00 111 04/11/17 22:45 98 35 04/11/17 22:00 106 04/11/17 20:00 35 04/11/17 20:00 98.6 104 14 127/73 97 04/11/17 20:00 104 04/11/17 19:30 96 35 04/11/17 18:00 98 04/11/17 16:00 35 04/11/17 16:00 105 04/11/17 16:00 104 14 124/71 97 04/11/17 14:33 99 35 04/11/17 14:00 100 I/O 04/11/17 04/11/17 04/11/17 04/12/17 04/12/17 04/12/17 06:59 14:59 22:59 06:59 14:59 22:59 Intake Total 574 ml 654 ml 1099 ml Output Total 450 ml 500 ml 600 ml Balance 124 ml 154 ml 499 ml IV Total 225 ml 305 ml 352 ml Tube Feeding 349 ml 349 ml 627 ml Other 120 ml Output Urine Total 450 ml 500 ml 600 ml (Cailin Quan) Result Diagram: 04/11/17 1010 04/11/17 1010 ROS General: Fatigue, Weakness, Other (10 point ROS done positives noted other systems negative or unremarkable) Pulmonary: Cough (occasional), SOB, Wheezing, Other (decreased breath sounds throughout) /SHANK INSPECTOR: Other (Reddy catheter, urine is dark) Neuro/MS: Other (lethargic but will respond to verbal stimuli) (Cailin Quan) Physical Exam Physical Exam PHYSICAL EXAMINATION GENERAL: This is a female Resting in the bed on ventilator management She is lethargic but responds to verbal stimuli HEAD: Normocephalic, OROPHARYNGEAL: Oropharynx without erythema or edema., ET tube NECK: Supple. Trachea midline without deviation. CARDIAC: Regular rhythm, regular rate, S1 and S2, tachycardia rhythm, distant heart sounds LUNGS: Diminished to auscultation bilaterally. few wheeze, few rhonchi, CPAP the ET tube, volumes low ABDOMEN: Soft, nontender, no organomegaly or masses. Bowel sounds are heard in all four quadrants. EXTREMITIES: no edema. Pulses palpable NEUROLOGICAL: Patient lethargic. SKIN:Warm, pale, dry Objective Remarks na (Cailin Quan) A/P Assessment and Plan (1) Hypercapnic respiratory failure (2) Acute exacerbation of chronic obstructive pulmonary disease (COPD) (3) SCLC (small cell lung carcinoma) with liver mets (4) Hyperglycemia (5) Depression (6) A-fib (7) Hypertension Plan Vent Management management as per pulmonary/critical care COPD exacerbation, acute Sedation per critical care CPAP now, trials, low volumes Duonebs IV steroid, antibiotics cultures negative so far Small cell lung carcinoma oncology following, following appreciated appreciated. No chemotherapy until patient stabilizes continue tube feeding, increased to 45 cc an hour Will add increased free water flushes, urine is dark no bm, add Lactulose Anemia, probable secondary to chronic disease monitoring medical management hx afib, continue Cardizem remains SR/ST Lovenox for DVT prophylaxis Pepcid for GI prophylaxis Full code condition critical (Cailin Quan) Assessment and Plan pt seen and examined as above with rn at bedside labs meds reviewed [facility] help plan of care hannah young rn cond guarded labs for tomorrow (Sohail Sellers MD) Cailin Quan April 12, 2017 13:03 Sohail Sellers MD April 12, 2017 13:45
--- NOTE | 2017-04-12 17:43 | HHI.CCPN ---
Subjective Remarks/Hospital Course Afebrile.51-year-old female with past medical history of small cell lung cancer with liver metastases diagnosed in January 2017, tobacco abuse. She has been on palliative chemotherapy since March 08. She presented to [facility] emergency department on 04/07/17 with shortness of breath and has been treated for COPD exacerbation with nebs, Solu-Medrol, cefepime and azithromycin. She was placed on BiPAP and initially had some response. However she refused BiPAP and has becoming progressively lethargic through the course of the evening. An ABG was obtained and she has acute hypercapnic respiratory failure with pH 7.12/PaCO2 116/PA O2 of 101. Her RN discussed code status with her earlier and patient stated "intubate me if I need it". Further history is limited due to patient's altered mental status secondary to hypercapnic respiratory failure. CTA 04/07 was negative for pulmonary embolism. Subjective: 04/08: CPAP trials attempted patient extremely anxious, unsuccessful. Plan to to transition to Precedex infusion for CPAP trials and weaning. ABG this a.m. 7.34/63/205/34/7.9, but patient gets extremely anxious when CPAP trials were initiated. 04/09 Patient is sedated with Diprivan and intubated. Afebrile. 04/10:Afebrile. Notably anxious this afternoon. Patient placed on Precedex infusion CPAP trials initiated. 04/11: Continue attempts at CPAP trials, one Precedex unsuccessful. Patient becomes extremely anxious despite Xanax. Patient now continues on propofol sedation for mechanical ventilation synchrony. 04/12: Medications readjusted today the patient continues on CPAP trials greater than 6 hours. Sodium level was noted to continue to be elevated free water flushes added to medication regimen. Off sedation the patient continues to be a GCS of 11 T. Objective Vital Signs Date Time Temp Pulse Resp B/P Pulse Ox O2 Delivery O2 Flow Rate FiO2 04/12/17 16:45 95 35 04/12/17 16:00 97.5 107 35 190/99 Intake and Output 04/11/17 04/11/17 04/12/17 08:00 16:00 00:00 Intake Total 574 ml 654 ml Output Total 450 ml 500 ml Balance 124 ml 154 ml Result Diagram: 04/11/17 1010 04/11/17 1010 Imaging Last Impressions Chest X-Ray 04/08/17 0000 Signed Impressions: Service Date/Time: March 21:14 - CONCLUSION: No significant change. Abhinav Jackson MD CT Angiography 04/07/17 0031 Signed Impressions: Service Date/Time: Friday, April 07, 2017 01:13 - CONCLUSION: 1. No pulmonary emboli. 2. Reduction in size of the mediastinal and hilar adenopathy. 3. Reduction in size of the left hepatic lobe metastasis. 4. Severe emphysematous changes. Roberth Lockett Jr., MD Objective Remarks GENERAL: Patient is 51yo intubated and responsive SKIN: Warm and dry. HEAD: Normocephalic. EYES: No scleral icterus. No injection or drainage. NECK: Supple, trachea midline. No JVD or lymphadenopathy. CARDIOVASCULAR: Regular rate and rhythm without murmurs, gallops, or rubs. RESPIRATORY: Breath sounds equal bilaterally. No accessory muscle use. Diminished BS. GASTROINTESTINAL: Abdomen soft, non-tender, nondistended. MUSCULOSKELETAL: No cyanosis, or edema. Neuro: RASS -2. Follows commands moves extremities 4 Urinary Catheter: Yes Date of Insertion: April 07, 2017 A/P Assessment and Plan NEURO: Anxiety disorder Daily sedation vacation. Continue Precedex infusion to facilitate with weaning trials. RASS target -2 Lortab as needed for pain Xanax PRN Fentanyl as needed for breakthrough pain RESP: Metastatic small cell lung cancer Acute hypercapnic respiratory failure COPD exacerbation Intubated 04/07 emergently Continue with vent support keep sat >92% Bronchodilators, ICU vent bundle, SBT daily as prasanna. Continue Solu-Medrol 60 mg IV every 6 hours Pulmonology following, Dr. Zhu CTA 04/07negative for pulmonary embolism CV: History of hypertension History of atrial fibrillation Monitor HR and BP keep MAP>65mmHg Continue Cardizem 60 mg by mouth every 6 hours GI: Jevity 1.5 advance to target 45 mL per hour and follow-up nutrition recommendations : Monitor renal function, I/O's, electrolytes replacement per protocol. d/c IVF and diurese with Bumex 1mg x1 ID: Continue cefepime and azithromycin 04/07. Monitor for signs of infections ( Fever, WBC) blood and urine culture- NGTD HEME: Small cell lung cancer with liver metastases on palliative chemotherapy Hematology following, Dr. Juan LUNSFORD: Acute hyperglycemia On Low-dose insulin sliding scale every 6 hours PROPH: SCDs and Lovenox 40 mg subcutaneous daily for DVT prophylaxis. Pepcid 20 mg twice a day for stress ulcer prophylaxis ACCESS: Port accessed right chest Dispo: Discussed with NUTRITION DIRECTOR at bedside. Level 3 . Physician Tory Chan MD April 12, 2017 17:43
[2017-04-12] MEDS: FREE WATER G-TUBE SCH (17:51)
[2017-04-12] MEDS: LACTULOSE SYRUP 20 GM/30 ML CUP PO PRN (20:10)
[2017-04-13] VITALS (45 sets, daily range): BP systolic 88–166; BP diastolic 58–98; PULSE 88–110; RESP 10–23; TEMP 98.1–98.7; O2SAT 95–100
[2017-04-13] MEDS: fentaNYL 2,500 MCG/NS 250 ML IV SCH ×2 (00:50→14:21)
[2017-04-13] MEDS: ENOXAPARIN SODIUM 40 MG/0.4 ML SYRINGE SQ SCH (02:02)
[2017-04-13] MEDS: CEFEPIME INJ 1,000 MG in SODIUM CHLORIDE 0.9% INJ 100 ML IV SCH ×3 (02:02→17:04)
[2017-04-13] MEDS: RESP: ALBUTEROL 2.5 MG/IPRATROPIUM 0.5 MG NEB (SCH) INH ×6 (03:14→23:25)
[2017-04-13] MEDS: INSULIN ASPART SUPPLEMENTAL SCALE SQ SCH ×4 (05:00→22:41)
[2017-04-13] MEDS: DILTIAZEM HCL 60 MG TAB PO SCH ×4 (05:08→22:41)
[2017-04-13] MEDS: FREE WATER G-TUBE SCH ×3 (05:08→11:13)
[2017-04-13] MEDS: ALPRAZolam 0.25 MG TAB PO PRN (05:08)
[2017-04-13] MEDS: methylPREDNISolone SOD SUCC 125 MG/2 ML VIAL IVP SCH ×3 (05:08→22:40)
[2017-04-13 05:41] LABS: AUTOMATED NEUTROPHIL # 2.6 TH/MM3 (1.8-7.7); BASOPHIL % 0.1 % (0.0-2.0); EOSINOPHIL % 0.2 % (0.0-4.0); HEMATOCRIT 27.1 % (35.0-46.0); LYMPH % 6.8 % (9.0-44.0); LYMPHOCYTE # 0.2 TH/MM3 (1.0-4.8); MEAN CORPUSCULAR HEMOGLOBIN 28.9 PG (27.0-34.0); MEAN CORPUSCULAR HGB CONC 32.8 % (32.0-36.0); MONO % 3.7 % (0.0-8.0); NEUT % 89.2 % (16.0-70.0); PLATELET COUNT 274 TH/MM3 (150-450); RED BLOOD COUNT 3.08 MIL/MM3 (4.00-5.30); RED CELL DISTRIBUTION WIDTH 17.8 % (11.6-17.2); WHITE BLOOD COUNT 2.9 TH/MM3 (4.0-11.0)
[2017-04-13 05:55] LABS: HEMO FLAGS AUTO DIFF
[2017-04-13 06:04] LABS: BICARBONATE 37.7 MEQ/L (21.0-32.0); MAGNESIUM 2.6 MG/DL (1.5-2.5); POTASSIUM 4.1 MEQ/L (3.5-5.1)
--- NOTE | 2017-04-13 06:12 | RADRPT ---
EXAM DATE/TIME: 04/13/2017 04:51 [place] COMPARISON: CHEST SINGLE AP, April 11, 2017, 3:49. INDICATIONS : Shortness of breath. MEDICAL HISTORY : Carcinoma, lung. Hypertension Chronic obstructive pulmonary disease. SURGICAL HISTORY : Tubal ligation. ENCOUNTER: Subsequent ACUITY: 1 week PAIN SCORE: 0/10 LOCATION: Bilateral chest FINDINGS: A single AP portable semierect view of the chest was obtained and demonstrates endotracheal tube in p lace with the tip approximately 5 cm above the lia. The right internal jugular central venous line remains in place. A nasogastric tube is seen coursing through the esophagus and into the stomach. Th e lungs remain mildly hyperinflated with no confluent infiltrates or effusions. There are multiple ov erlying electrocardiogram leads. CONCLUSION: No significant change. No acute cardiopulmonary disease. Paul Green MD on April 13, 2017 at 6:09 Board Certified Radiologist. This report was verified electronically.
[2017-04-13] MEDS: PROPOFOL 1000 MG/100 ML INJ 100 ML IV SCH (06:38)
[2017-04-13] MEDS: CHLORHEXIDINE 0.12% (ORAL KIT) 15 ML CUP MT SCH ×2 (07:50→19:49)
[2017-04-13] MEDS: FAMOTIDINE 20 MG TAB PO SCH ×2 (07:51→19:48)
[2017-04-13] MEDS: SODIUM CHLORIDE 0.9% FLUSH 10 ML FLUSH IV FLUSH SCH ×2 (07:51→19:48)
[2017-04-13 09:25] LABS: BANDS 13 % (0-6); NEUTROPHIL # MANUAL DIFF 2.8 TH/MM3 (1.8-7.7); PLATELET ESTIMATE SMEAR NORMAL (NORMAL); PLATELET MORPHOLOGY NORMAL (NORMAL); POLYS (SEG NEUTROPHILS) 82 % (16-70); SCAN/DIFF FINAL DIFF MANUAL; WBC DIFF SAMPLE 100
--- NOTE | 2017-04-13 11:59 | HHI.CCPN ---
Subjective Remarks/Hospital Course 51-year-old female with past medical history of small cell lung cancer with liver metastases diagnosed in January 2017, tobacco abuse. She has been on palliative chemotherapy since March 08. She presented to [facility] emergency department on 04/07/17 with shortness of breath and has been treated for COPD exacerbation with nebs, Solu-Medrol, cefepime and azithromycin. She was placed on BiPAP and initially had some response. However she refused BiPAP and has becoming progressively lethargic through the course of the evening. An ABG was obtained and she has acute hypercapnic respiratory failure with pH 7.12/PaCO2 116/PA O2 of 101. Her RN discussed code status with her earlier and patient stated "intubate me if I need it". Further history is limited due to patient's altered mental status secondary to hypercapnic respiratory failure. CTA 04/07 was negative for pulmonary embolism. 04/08: CPAP trials attempted patient extremely anxious, unsuccessful. Plan to to transition to Precedex infusion for CPAP trials and weaning. ABG this a.m. 7.34/63/205/34/7.9, but patient gets extremely anxious when CPAP trials were initiated. 04/09 Patient is sedated with Diprivan and intubated. Afebrile. 04/10:Afebrile. Notably anxious this afternoon. Patient placed on Precedex infusion CPAP trials initiated. 04/11: Continue attempts at CPAP trials, one Precedex unsuccessful. Patient becomes extremely anxious despite Xanax. Patient now continues on propofol sedation for mechanical ventilation synchrony. 04/12: Medications readjusted today the patient continues on CPAP trials greater than 6 hours. Sodium level was noted to continue to be elevated free water flushes added to medication regimen. Off sedation the patient continues to be a GCS of 11 T. Subjective: 04/13: Lasted only 10 minutes on PSV trial today. Continues to be on propofol and fentanyl drips for vent synchrony. Tolerating tube feeding. Positive BM. Objective Vital Signs Date Time Temp Pulse Resp B/P Pulse Ox O2 Delivery O2 Flow Rate FiO2 04/13/17 10:00 97 04/13/17 08:30 35 04/13/17 08:27 97 04/13/17 08:00 98.1 10 137/65 Intake and Output 04/12/17 04/12/17 04/12/17 07:59 15:59 23:59 Intake Total 1099 ml 633 ml 787 ml Output Total 600 ml 550 ml 980 ml Balance 499 ml 83 ml -193 ml Result Diagram: 04/13/17 0428 04/13/17 0428 Imaging Last Impressions Chest X-Ray 04/13/17 0600 Signed Impressions: Service Date/Time: Thursday, April 13, 2017 04:51 - CONCLUSION: No significant change. No acute cardiopulmonary disease. Paul Green MD CT Angiography 04/07/17 0031 Signed Impressions: Service Date/Time: Friday, April 07, 2017 01:13 - CONCLUSION: 1. No pulmonary emboli. 2. Reduction in size of the mediastinal and hilar adenopathy. 3. Reduction in size of the left hepatic lobe metastasis. 4. Severe emphysematous changes. Roberth Lockett Jr., MD Objective Remarks GENERAL: 51-year-old female, critically ill currently resting in bed in no acute distress SKIN: Warm and dry. No rash HEAD: Normocephalic. EYES: Pupils equally round and reactive about 3 mm bilaterally No scleral icterus. No injection or drainage. NECK: Supple, trachea midline. No JVD or lymphadenopathy. CARDIOVASCULAR: Regular rate and rhythm , S2 no S4. Without murmurs, gallops, or rubs. RESPIRATORY: Diminished breath sounds throughout lung mathis. No wheezing appreciated. GASTROINTESTINAL: Abdomen soft, non-tender, nondistended. Active bowel sounds MUSCULOSKELETAL: No new skin peripheral edema. Neuro: Off sedation, Follows commands moves extremities 4 Date of Insertion: April 07, 2017 A/P Assessment and Plan NEURO/PSYCH: Anxiety disorder NOS Currently on propofol at 20 mu./kg/m and fentanyl drip at 200 mics grams and hour for sedation/analgesia while intubated RASS target -2 Daily sedation vacation RESP: Acute hypercapnic respiratory failure COPD exacerbation Severe emphysematous COPD PRVC 16/550/12/03/34 Ventilator bundle DuoNeb therapy every 4 hours with albuterol nebs every 2 hours when necessary Wean FiO2 keep sats greater or equal to 90% SBT daily as prasanna. Continue Solu-Medrol 40 mg IV every 8 hours Pulmonology following, Dr. Zhu CTA 04/07 significant/severe pulmonary emphysema, decreasing mediastinal lymphadenopathy. Decrease in size of hepatic mass Home medications are Spiriva 18 V daily Atrovent HFA 2 puffs 4 times a day PFTs 04/13 revealed FVC 1.3. FEV1 0.5. 38% reversibility with bronchodilator. Severe airway obstruction. CV: Hypertension Dyslipidemia History of atrial fibrillation Monitor HR and BP keep MAP>65mmHg Continue Cardizem 60 mg by mouth every 6 hours /home medication Currently holding Lipitor 20 mg daily/home medication 2-D echo 02/12 revealed EF 55-60%. No regional wall motion abnormality. GI: Mild protein calorie malnutrition Jevity 1.5 advance to target 65 mL per hour Pepcid for GI prophylaxis Colace/Senokot twice a day for bowel regimen /Renal: Monitor renal function I/O's, electrolytes replacement per protocol. ID: Continue cefepime 04/07. Completed therapy with azithromycin. Monitor for signs of infections ( Fever, WBC) blood and urine culture- NGTD HEME/ONC: Small cell lung cancer with liver metastases on palliative chemotherapy Hematology following, Dr. Martinez Not a candidate for chemotherapy until extubated ENDO: Acute hyperglycemia of critical illness On Low-dose insulin sliding scale every 6 hours. 21 units insulin scale past 24 hours Start low-dose Levemir 5 units twice a day today FEN: Hypernatremia We'll start on / saline 1 L. See orders 1 dose Diamox today 250 mg Access - Right Port-A-Cath Prophylaxis - GI - Pepcid - DVT - SCD/Lovenox subcutaneous Critical Care: The total critical care time was 30 minutes. Time to perform other separately billable procedures was not included in the critical care time. . Rolando Connor MD April 13, 2017 11:59
--- NOTE | 2017-04-13 12:59 | PD.ONC.PN ---
Subjective Subjective Remarks Afebrile overnight. Pt resting in bed. Remains intubated and sedated. Per RN she only lasted 10 minutes on CPAP trials this am. Objective Data Date Time Temp Pulse Resp B/P Pulse Ox O2 Delivery O2 Flow Rate FiO2 04/13/17 12:00 35 04/13/17 12:00 98.5 88 14 99/58 98 04/13/17 12:00 88 04/13/17 11:50 97 35 04/13/17 11:30 97 14 100/62 99 04/13/17 11:00 99 14 111/61 99 04/13/17 10:30 97 14 107/64 99 04/13/17 10:00 97 14 120/66 99 04/13/17 10:00 97 04/13/17 09:30 98 14 126/67 98 04/13/17 09:00 97 14 127/72 97 04/13/17 08:30 35 04/13/17 08:30 99 13 140/70 97 04/13/17 08:27 97 35 04/13/17 08:15 35 04/13/17 08:01 35 04/13/17 08:01 96 35 04/13/17 08:00 96 10 137/65 98 04/13/17 08:00 96 04/13/17 08:00 35 04/13/17 08:00 98.1 96 10 137/65 98 04/13/17 07:30 95 23 130/67 100 04/13/17 07:00 91 14 107/62 98 04/13/17 06:00 91 04/13/17 04:40 99 35 04/13/17 04:00 35 04/13/17 04:00 109 04/13/17 04:00 98.5 109 14 156/73 100 04/13/17 03:30 105 15 149/74 98 04/13/17 03:00 97 14 135/76 97 04/13/17 02:30 100 14 140/72 98 04/13/17 02:00 96 14 133/70 98 04/13/17 02:00 96 04/13/17 01:30 97 14 141/71 98 04/13/17 01:30 98 35 04/13/17 01:00 110 19 166/98 97 04/13/17 00:30 99 11 132/71 97 04/13/17 00:00 92 04/13/17 00:00 98.7 92 14 123/72 97 04/13/17 00:00 92 13 123/72 97 04/13/17 00:00 35 04/12/17 22:00 119 04/12/17 22:00 119 42 202/121 96 04/12/17 21:50 99 35 04/12/17 21:30 113 33 184/92 96 04/12/17 21:00 35 04/12/17 21:00 103 30 179/90 98 04/12/17 20:30 94 22 186/97 98 04/12/17 20:00 35 04/12/17 20:00 98.1 91 28 171/94 99 04/12/17 20:00 91 04/12/17 19:48 100 35 04/12/17 18:31 35 04/12/17 18:28 98 35 04/12/17 18:00 99 04/12/17 16:45 95 35 04/12/17 16:00 35 04/12/17 16:00 97.5 107 35 190/99 96 04/12/17 16:00 110 04/12/17 14:00 112 04/12/17 13:27 98 35 04/13/17 04/13/17 04/13/17 07:00 15:00 23:00 Intake Total 951 ml Output Total 750 ml Balance 201 ml Result Diagram: 04/13/17 0428 04/13/17 0428 Laboratory Results Laboratory Tests Test 04/13/17 04:28 White Blood Count 2.9 TH/MM3 Red Blood Count 3.08 MIL/MM3 Hemoglobin 8.9 GM/DL Hematocrit 27.1 % Mean Corpuscular Volume 88.0 FL Mean Corpuscular Hemoglobin 28.9 PG Mean Corpuscular Hemoglobin 32.8 % Concent Red Cell Distribution Width 17.8 % Platelet Count 274 TH/MM3 Mean Platelet Volume 8.9 FL Neutrophils (%) (Auto) 89.2 % Lymphocytes (%) (Auto) 6.8 % Monocytes (%) (Auto) 3.7 % Eosinophils (%) (Auto) 0.2 % Basophils (%) (Auto) 0.1 % Neutrophils # (Auto) 2.6 TH/MM3 Lymphocytes # (Auto) 0.2 TH/MM3 Monocytes # (Auto) 0.1 TH/MM3 Eosinophils # (Auto) 0.0 TH/MM3 Basophils # (Auto) 0.0 TH/MM3 CBC Comment AUTO DIFF Differential Total Cells 100 Counted Neutrophils % (Manual) 82 % Band Neutrophils % 13 % Lymphocytes % 3 % Monocytes % 2 % Neutrophils # (Manual) 2.8 TH/MM3 Differential Comment FINAL DIFF MANUAL Platelet Estimate NORMAL Platelet Morphology Comment NORMAL Sodium Level 148 MEQ/L Potassium Level 4.1 MEQ/L Chloride Level 104 MEQ/L Carbon Dioxide Level 37.7 MEQ/L Anion Gap 6 MEQ/L Blood Urea Nitrogen 34 MG/DL Creatinine 0.54 MG/DL Estimat Glomerular Filtration 119 ML/MIN Rate Random Glucose 244 MG/DL Calcium Level 8.7 MG/DL Phosphorus Level 3.2 MG/DL Magnesium Level 2.6 MG/DL Imaging Studies Last 24 hours Impressions Chest X-Ray 04/13/17 0600 Signed Impressions: Service Date/Time: Thursday, April 13, 2017 04:51 - CONCLUSION: No significant change. No acute cardiopulmonary disease. Paul Green MD Administered Medications Medications (Trade) Dose Ordered Sig/Rossana Route PRN Reason Start Time Stop Time Status Last Admin Dose Admin Sodium Chloride (NS Flush) 2 ml BID IV FLUSH 04/07/17 09:00 04/12/17 20:11 Enoxaparin Sodium (Lovenox Inj) 40 mg Q24H SQ 04/07/17 01:00 04/13/17 02:02 Docusate Sodium 100 mg 100 mg BID PRN PO CONSTIPATION 04/07/17 01:00 04/08/17 19:49 Cefepime HCl/ Sodium Chloride (Maxipime Inj/NS Inj) 100 ml @ 200 mls/hr Q8H IV 04/07/17 09:00 04/13/17 07:51 Famotidine (Pepcid) 20 mg BID PO 04/07/17 09:00 04/13/17 07:51 Diltiazem HCl (Cardizem) 60 mg Q6HR PO 04/07/17 06:00 04/13/17 11:13 Miscellaneous Information Patient in critical care unit? Ass... [id number] .XX 04/07/17 02:30 04/07/17 02:30 Chlorhexidine Gluconate (Peridex 0.12% Liq) 15 ml BID@08,20 MT 04/08/17 08:00 04/13/17 07:50 Potassium Phosphate (K-Phos) 2,000 mg Q4H PRN PO For Phosphorus < 2.5 mg/dL 04/08/17 10:45 04/10/17 12:52 Insulin Aspart 1 1 Q6H SQ 04/08/17 11:00 04/13/17 11:15 Propofol (Diprivan 1000 Mg/100ml Inj) 100 ml @ 0 mls/hr TITRATE IV 04/08/17 21:15 04/13/17 06:38 Lactulose 30 ml 30 ml DAILY PRN PO constipation 04/10/17 13:45 04/12/17 20:10 Fentanyl Citrate (fentaNYL DRIP) 250 ml @ 0 mls/hr TITRATE IV 04/11/17 11:30 04/13/17 00:50 Methylprednisolone Sodium Succinate (SoluMEDROL INJ) 40 mg Q8HR IVP 04/13/17 14:00 04/13/17 12:50 Objective Remarks GENERAL: Chronically ill appearing older female sedated and mechanically ventilated. SKIN: Warm and dry. HEAD: Normocephalic. Alopecia EYES: No scleral icterus. No injection or drainage. NECK: Supple, trachea midline. No JVD or lymphadenopathy. CARDIOVASCULAR: +S1/S2. RESPIRATORY: Scattered rhonchi. GASTROINTESTINAL: Abdomen soft, non-tender, nondistended. EXTREMITIES: No cyanosis, or edema. SCD's to BLE. NEUROLOGICAL: Sedated on propofol. Assessment/Plan Problem List: (1) SCLC (small cell lung carcinoma) Status: Chronic Plan: 04/13: Pt did not tolerate CPAP trials today. Per RN last only 10 minutes. No chemo today. Continue IV Abx, steroids. 04/12: On Cefepime + solu-medrol. CPAP trials today. unable to resume chemo until current issues resolved 04/08/17: Continue supportive care with IV Abx, steroids. -- s/p C2 w/ carboplatin and etoposide on 04/05/17. Assessment 51 y/o female with history of small cell lung cancer admitted with COPD exacerbation. Attending Statement on vent and sedated. Failed CPAP consult palliative care to define the goal. The exam, history, and the medical decision-making described in the above note were completed with the assistance of the mid-level provider. I reviewed and agree with the findings presented. I attest that I had a tuoo-ya-reor encounter with the patient on the same day, and personally performed and documented my assessment and findings in the medical record. Problem Qualifiers (1) SCLC (small cell lung carcinoma): Qualified Code: C34.90 - SCLC (small cell lung carcinoma), unspecified laterality Daisy Marquez April 13, 2017 12:59 Alyssa Martinez MD April 13, 2017 23:21
[2017-04-13] MEDS ORDERED: SODIUM CHLORIDE 23.4% INJ 38.5 MEQ in WATER STERILE FOR INJ 1,000 ML IV SCH (14:00)
--- NOTE | 2017-04-13 15:44 | HHI.PR ---
Subjective Remarks Patient intubated sedated Unable to get any information from patient Objective Objective Results - Vital Signs Date Time Temp Pulse Resp B/P Pulse Ox O2 Delivery O2 Flow Rate FiO2 04/13/17 14:00 90 04/13/17 12:00 35 04/13/17 12:00 98.5 88 14 99/58 98 04/13/17 12:00 88 04/13/17 11:50 97 35 04/13/17 11:30 97 14 100/62 99 04/13/17 11:00 99 14 111/61 99 04/13/17 10:30 97 14 107/64 99 04/13/17 10:00 97 14 120/66 99 04/13/17 10:00 97 04/13/17 09:30 98 14 126/67 98 04/13/17 09:00 97 14 127/72 97 04/13/17 08:30 35 04/13/17 08:30 99 13 140/70 97 04/13/17 08:27 97 35 04/13/17 08:15 35 04/13/17 08:01 35 04/13/17 08:01 96 35 04/13/17 08:00 96 10 137/65 98 04/13/17 08:00 96 04/13/17 08:00 35 04/13/17 08:00 98.1 96 10 137/65 98 04/13/17 07:30 95 23 130/67 100 04/13/17 07:00 91 14 107/62 98 04/13/17 06:00 91 04/13/17 04:40 99 35 04/13/17 04:00 35 04/13/17 04:00 109 04/13/17 04:00 98.5 109 14 156/73 100 04/13/17 03:30 105 15 149/74 98 04/13/17 03:00 97 14 135/76 97 04/13/17 02:30 100 14 140/72 98 04/13/17 02:00 96 14 133/70 98 04/13/17 02:00 96 04/13/17 01:30 97 14 141/71 98 04/13/17 01:30 98 35 04/13/17 01:00 110 19 166/98 97 04/13/17 00:30 99 11 132/71 97 04/13/17 00:00 92 04/13/17 00:00 98.7 92 14 123/72 97 04/13/17 00:00 92 13 123/72 97 04/13/17 00:00 35 04/12/17 22:00 119 04/12/17 22:00 119 42 202/121 96 04/12/17 21:50 99 35 04/12/17 21:30 113 33 184/92 96 04/12/17 21:00 35 04/12/17 21:00 103 30 179/90 98 04/12/17 20:30 94 22 186/97 98 04/12/17 20:00 35 04/12/17 20:00 98.1 91 28 171/94 99 04/12/17 20:00 91 04/12/17 19:48 100 35 04/12/17 18:31 35 04/12/17 18:28 98 35 04/12/17 18:00 99 04/12/17 16:45 95 35 04/12/17 16:00 35 04/12/17 16:00 97.5 107 35 190/99 96 04/12/17 16:00 110 I/O 04/12/17 04/12/17 04/12/17 04/13/17 04/13/17 04/13/17 06:59 14:59 22:59 06:59 14:59 22:59 Intake Total 1099 ml 633 ml 787 ml 951 ml 1378 ml Output Total 600 ml 550 ml 980 ml 750 ml 650 ml Balance 499 ml 83 ml -193 ml 201 ml 728 ml IV Total 352 ml 250 ml 335 ml 258 ml 395 ml Tube Feeding 627 ml 383 ml 392 ml 293 ml 403 ml Tube Irrigant 60 ml 180 ml Other 120 ml 400 ml 400 ml Output Urine Total 600 ml 550 ml 980 ml 750 ml 650 ml # Bowel Movements 0 Result Diagram: 04/13/17 0428 04/13/17 0428 Other Results Laboratory Tests Test 04/13/17 04:28 White Blood Count 2.9 Red Blood Count 3.08 Hemoglobin 8.9 Hematocrit 27.1 Mean Corpuscular Volume 88.0 Mean Corpuscular Hemoglobin 28.9 Mean Corpuscular Hemoglobin 32.8 Concent Red Cell Distribution Width 17.8 Platelet Count 274 Mean Platelet Volume 8.9 Neutrophils (%) (Auto) 89.2 Lymphocytes (%) (Auto) 6.8 Monocytes (%) (Auto) 3.7 Eosinophils (%) (Auto) 0.2 Basophils (%) (Auto) 0.1 Neutrophils # (Auto) 2.6 Lymphocytes # (Auto) 0.2 Monocytes # (Auto) 0.1 Eosinophils # (Auto) 0.0 Basophils # (Auto) 0.0 CBC Comment AUTO DIFF Differential Total Cells 100 Counted Neutrophils % (Manual) 82 Band Neutrophils % 13 Lymphocytes % 3 Monocytes % 2 Neutrophils # (Manual) 2.8 Differential Comment FINAL DIFF MANUAL Platelet Estimate NORMAL Platelet Morphology Comment NORMAL Sodium Level 148 Potassium Level 4.1 Chloride Level 104 Carbon Dioxide Level 37.7 Anion Gap 6 Blood Urea Nitrogen 34 Creatinine 0.54 Estimat Glomerular Filtration 119 Rate Random Glucose 244 Calcium Level 8.7 Phosphorus Level 3.2 Magnesium Level 2.6 Physical Exam Physical Exam VITAL SIGNS: Reviewed. GENERAL: This is a 51-year-old female intubated and sedated HEENT: Within ET tube in an OG tube CARDIOVASCULAR SYSTEM: Tachycardic. S1 and S2 audible. Heart rate between 100 - 110 sinus tachycardia RESPIRATORY SYSTEM: Good air entry. There is occasional scattered wheezing. Occasional rhonchi bibasally. GASTROINTESTINAL SYSTEM: Bowel sounds are present. No tenderness, guarding or rebound. MUSCULOSKELETAL SYSTEM: Sedated NEUROLOGICAL EXAM: Sedated on vent skin, warm and dry Date of Insertion: April 07, 2017 A/P Assessment and Plan (1) Hypercapnic respiratory failure (2) Acute exacerbation of chronic obstructive pulmonary disease (COPD) (3) SCLC (small cell lung carcinoma) with liver mets (4) Hyperglycemia (5) Depression (6) A-fib (7) Hypertension Plan Vent Management management as per pulmonary/critical care COPD exacerbation, acute Sedation per critical care failed CPAP trials today Duonebs IV steroid, antibiotics cultures negative so far Small cell lung carcinoma oncology following,input appreciated. No chemotherapy until patient stabilizes and extubated continue tube feeding, increased to 45 cc an hour Will add increased free water flushes, urine is dark no bm, add Lactulose Anemia, probable secondary to chronic disease monitoring medical management hx afib, continue Cardizem remains SR/ST Lovenox for DVT prophylaxis Pepcid for GI prophylaxis Full code condition critical Sohail Sellers MD April 13, 2017 15:44
[2017-04-13] MEDS ORDERED: BISACODYL 10 MG SUPP RECTAL ONE (16:15)
--- NOTE | 2017-04-13 17:50 | HHI.PR ---
Subjective Remarks on the vent sedated afebrile Objective GENERAL: SKIN: Warm and dry. HEAD: Atraumatic. Normocephalic. EYES: Pupils equal and round. No scleral icterus. No injection or drainage. ENT: No nasal bleeding or discharge. Mucous membranes pink and moist. NECK: Trachea midline. No JVD. CARDIOVASCULAR: Regular rate and rhythm. RESPIRATORY: No accessory muscle use. Clear to auscultation. Breath sounds equal bilaterally. GASTROINTESTINAL: Abdomen soft, non-tender, nondistended. Hepatic and splenic margins not palpable. MUSCULOSKELETAL: Extremities without clubbing, cyanosis, or edema. No obvious deformities. NEUROLOGICAL: Awake and alert. No obvious cranial nerve deficits. Motor grossly within normal limits. Five out of 5 muscle strength in the arms and legs. Normal speech. PSYCHIATRIC: Appropriate mood and affect; insight and judgment normal. Vital Signs Date Time Temp Pulse Resp B/P Pulse Ox O2 Delivery O2 Flow Rate FiO2 04/13/17 17:00 93 15 109/64 99 04/13/17 16:30 94 14 110/61 99 04/13/17 16:00 98.5 92 14 109/63 99 04/13/17 16:00 92 04/13/17 16:00 92 14 109/63 99 04/13/17 16:00 35 04/13/17 15:45 98 35 04/13/17 15:30 90 14 99/61 99 04/13/17 15:30 90 14 99/61 99 04/13/17 15:00 91 14 101/60 99 04/13/17 14:30 90 14 100/60 99 04/13/17 14:00 90 04/13/17 14:00 90 14 95/62 99 04/13/17 13:30 90 14 95/60 99 04/13/17 13:00 90 14 94/60 98 04/13/17 12:51 93 14 93/58 98 04/13/17 12:30 95 14 88/58 98 04/13/17 12:00 88 14 99/58 98 04/13/17 12:00 35 04/13/17 12:00 98.5 88 14 99/58 98 04/13/17 12:00 88 04/13/17 11:50 97 35 04/13/17 11:30 97 14 100/62 99 04/13/17 11:30 97 14 100/62 99 16/17 11:00 99 14 111/61 99 16/17 11:00 99 14 111/61 99 16/17 10:30 97 14 107/64 99 16/17 10:30 97 14 107/64 99 16/17 10:00 97 14 120/66 99 16/17 10:00 97 1617 10:00 97 14 120/66 99 16/17 09:30 98 14 126/67 98 16/17 09:30 98 14 126/67 98 16/17 09:00 97 14 127/72 97 16/17 09:00 97 14 127/72 97 16/ 08:30 35 16/17 08:30 99 13 140/70 97 16/17 08:30 99 13 140/70 97 16/ 08:27 97 35 16/17 08:15 35 04/13/17 08:01 35 04/13/17 08:01 96 35 1617 08:00 96 10 137/65 98 16/17 08:00 96 10 137/65 98 16/17 08:00 96 16/ 08:00 35 04/13/17 08:00 98.1 96 10 137/65 98 1617 07:30 95 23 130/67 100 16/17 07:30 95 23 130/67 100 16/17 07:00 91 14 107/62 98 16/ 07:00 91 14 107/62 98 16/17 06:00 91 17 04:40 99 35 16/17 04:00 35 16/17 04:00 109 16 04:00 98.5 109 14 156/73 100 16/17 03:30 105 15 149/74 98 16/17 03:00 97 14 135/76 97 16/17 02:30 100 14 140/72 98 16/17 02:00 96 14 133/70 98 16/17 02:00 96 16/17 01:30 97 14 141/71 98 16/17 01:30 98 35 16/17 01:00 110 19 166/98 97 5/16/17 00:30 99 11 132/71 97 04/13/17 00:00 92 04/13/17 00:00 98.7 92 14 123/72 97 04/13/17 00:00 92 13 123/72 97 04/13/17 00:00 35 04/12/17 22:00 119 04/12/17 22:00 119 42 202/121 96 04/12/17 21:50 99 35 04/12/17 21:30 113 33 184/92 96 04/12/17 21:00 35 04/12/17 21:00 103 30 179/90 98 04/12/17 20:30 94 22 186/97 98 04/12/17 20:00 35 04/12/17 20:00 98.1 91 28 171/94 99 04/12/17 20:00 91 04/12/17 19:48 100 35 04/12/17 18:31 35 04/12/17 18:28 98 35 04/12/17 18:00 99 I/O 04/12/17 04/12/17 04/12/17 04/13/17 04/13/17 04/13/17 07:00 15:00 23:00 07:00 15:00 23:00 Intake Total 1099 ml 633 ml 787 ml 951 ml 1378 ml Output Total 600 ml 550 ml 980 ml 750 ml 650 ml Balance 499 ml 83 ml -193 ml 201 ml 728 ml IV Total 352 ml 250 ml 335 ml 258 ml 395 ml Tube Feeding 627 ml 383 ml 392 ml 293 ml 403 ml Tube Irrigant 60 ml 180 ml Other 120 ml 400 ml 400 ml Output Urine Total 600 ml 550 ml 980 ml 750 ml 650 ml # Bowel Movements 0 Result Diagram: 04/13/17 0428 04/13/17 0428 Assessment and Plan Assessment and Plan ass: On the vent respiratory failure copd lung CA PLANVENT SUPPORT BRONCHODILATOR THERAPY WEAN TOLERATED Audra Zhu MD April 13, 2017 17:50
[2017-04-13] MEDS: INSULIN DETEMIR 100 UNITS/ML VIAL SQ SCH (19:49)
[2017-04-13] MEDS: RESP: BUDESONIDE 0.5 MG/2 ML NEB NEB SCH (20:35)
[2017-04-14] VITALS (30 sets, daily range): BP systolic 86–147; BP diastolic 58–82; PULSE 85–122; RESP 14–16; TEMP 98.2–99.3; O2SAT 91–100
[2017-04-14] MEDS: CEFEPIME INJ 1,000 MG in SODIUM CHLORIDE 0.9% INJ 100 ML IV SCH ×4 (01:15→23:40)
[2017-04-14] MEDS: ENOXAPARIN SODIUM 40 MG/0.4 ML SYRINGE SQ SCH ×2 (01:15→23:39)
--- NOTE | 2017-04-14 04:53 | RADRPT ---
EXAM DATE/TIME: 04/14/2017 04:01 [facility] COMPARISON: CHEST SINGLE AP, April 13, 2017, 4:51. INDICATIONS : Shortness of breath. MEDICAL HISTORY : Carcinoma, lung. Hypertension Chronic obstructive pulmonary disease SURGICAL HISTORY : Tubal ligation. Port Placement ENCOUNTER: Subsequent ACUITY: 1 week PAIN SCORE: Non-responsive. LOCATION: Bilateral chest FINDINGS: A single AP semierect portable view of the chest was obtained and demonstrates endotracheal tube with the tip now 9 cm above the lia. The nasogastric tube remains in place. The right-sided central ve nous line remains in place as well. The patient is mildly rotated to the left. There are no confluent infiltrates or effusions. The heart size is within normal limits. The bony thorax is intact with mul tiple overlying electrocardiogram leads. CONCLUSION: 1. The patient remains intubated. 2. The lungs remain clear. Paul Green MD on April 14, 2017 at 4:50 Board Certified Radiologist. This report was verified electronically.
[2017-04-14] MEDS: DILTIAZEM HCL 60 MG TAB PO SCH ×4 (04:54→22:55)
[2017-04-14] MEDS: methylPREDNISolone SOD SUCC 125 MG/2 ML VIAL IVP SCH ×3 (04:54→20:07)
[2017-04-14] MEDS: fentaNYL 2,500 MCG/NS 250 ML IV SCH ×2 (04:55→21:47)
[2017-04-14] MEDS: PROPOFOL 1000 MG/100 ML INJ 100 ML IV SCH ×5 (04:55→23:39)
[2017-04-14] MEDS: INSULIN ASPART SUPPLEMENTAL SCALE SQ SCH ×5 (04:59→22:56)
[2017-04-14] MEDS: RESP: ALBUTEROL 2.5 MG/IPRATROPIUM 0.5 MG NEB (SCH) INH ×6 (05:12→23:35)
[2017-04-14 06:01] LABS: BASOPHIL % 1.9 % (0.0-2.0); HEMATOCRIT 26.2 % (35.0-46.0); LYMPH % 8.9 % (9.0-44.0); LYMPHOCYTE # 0.2 TH/MM3 (1.0-4.8); MEAN CELL VOLUME 88.4 FL (80.0-100.0); MEAN CORPUSCULAR HEMOGLOBIN 29.1 PG (27.0-34.0); MEAN CORPUSCULAR HGB CONC 32.9 % (32.0-36.0); MONO % 6.6 % (0.0-8.0); NEUT % 82.6 % (16.0-70.0); PLATELET COUNT 182 TH/MM3 (150-450); RED BLOOD COUNT 2.97 MIL/MM3 (4.00-5.30); RED CELL DISTRIBUTION WIDTH 17.1 % (11.6-17.2); WHITE BLOOD COUNT 2.4 TH/MM3 (4.0-11.0)
[2017-04-14 06:11] LABS: HEMO FLAGS AUTO DIFF
[2017-04-14 06:25] LABS: ALT (GPT) 71 U/L (10-53); ANION GAP 4 MEQ/L (5-15); AST (GOT) 27 U/L (15-37); BICARBONATE 33.4 MEQ/L (21.0-32.0); BLOOD UREA NITROGEN 30 MG/DL (7-18); CHLORIDE 104 MEQ/L (98-107); GLOMERULAR FILTRATION RATE 151 ML/MIN (>89); MAGNESIUM 2.3 MG/DL (1.5-2.5); POTASSIUM 4.4 MEQ/L (3.5-5.1); SODIUM (NA) 141 MEQ/L (136-145)
[2017-04-14 06:27] LABS: ALKALINE PHOSPHATASE 50 U/L (45-117); TOTAL BILIRUBIN ADULT 0.3 MG/DL (0.2-1.0)
[2017-04-14] MEDS: RESP: BUDESONIDE 0.5 MG/2 ML NEB NEB SCH ×2 (07:59→19:44)
--- NOTE | 2017-04-14 08:14 | HHI.PR ---
Subjective Remarks on the vent sedated afebrile Objective Vital Signs Date Time Temp Pulse Resp B/P Pulse Ox O2 Delivery O2 Flow Rate FiO2 04/14/17 08:00 97 35 04/14/17 06:00 90 04/14/17 05:12 94 35 04/14/17 05:00 96 14 110/64 96 04/14/17 04:30 96 14 129/66 95 04/14/17 04:00 35 04/14/17 04:00 98.7 98 14 122/70 94 04/14/17 04:00 98 04/14/17 02:00 87 04/14/17 01:06 94 35 04/14/17 00:00 99.3 91 14 113/65 91 04/14/17 00:00 91 04/14/17 00:00 35 04/13/17 22:25 98 35 04/13/17 22:00 92 04/13/17 21:30 92 14 108/64 97 04/13/17 21:00 97 14 115/68 97 04/13/17 20:36 95 35 04/13/17 20:30 93 14 110/64 95 04/13/17 20:00 103 04/13/17 20:00 98.2 103 13 132/72 100 04/13/17 20:00 35 04/13/17 18:00 97 04/13/17 17:00 93 15 109/64 99 04/13/17 16:30 94 14 110/61 99 04/13/17 16:00 98.5 92 14 109/63 99 04/13/17 16:00 92 04/13/17 16:00 92 14 109/63 99 04/13/17 16:00 35 04/13/17 15:45 98 35 04/13/17 15:30 90 14 99/61 99 04/13/17 15:30 90 14 99/61 99 04/13/17 15:00 91 14 101/60 99 04/13/17 14:30 90 14 100/60 99 04/13/17 14:00 90 04/13/17 14:00 90 14 95/62 99 04/13/17 13:30 90 14 95/60 99 04/13/17 13:00 90 14 94/60 98 04/13/17 12:51 93 14 93/58 98 04/13/17 12:30 95 14 88/58 98 04/13/17 12:00 88 14 99/58 98 04/13/17 12:00 35 04/13/17 12:00 98.5 88 14 99/58 98 04/13/17 12:00 88 04/13/17 11:50 97 35 04/13/17 11:30 97 14 100/62 99 04/13/17 11:30 97 14 100/62 99 04/13/17 11:00 99 14 111/61 99 04/13/17 11:00 99 14 111/61 99 04/13/17 10:30 97 14 107/64 99 04/13/17 10:30 97 14 107/64 99 04/13/17 10:00 97 14 120/66 99 04/13/17 10:00 97 04/13/17 10:00 97 14 120/66 99 04/13/17 09:30 98 14 126/67 98 04/13/17 09:30 98 14 126/67 98 04/13/17 09:00 97 14 127/72 97 04/13/17 09:00 97 14 127/72 97 04/13/17 08:30 35 04/13/17 08:30 99 13 140/70 97 04/13/17 08:30 99 13 140/70 97 04/13/17 08:27 97 35 04/13/17 08:15 35 I/O 04/13/17 04/13/17 04/13/17 04/14/17 04/14/17 04/14/17 07:00 15:00 23:00 07:00 15:00 23:00 Intake Total 951 ml 1378 ml 1483 ml 1361 ml Output Total 750 ml 650 ml 625 ml 460 ml Balance 201 ml 728 ml 858 ml 901 ml IV Total 258 ml 395 ml 929 ml 674 ml Tube Feeding 293 ml 403 ml 494 ml 427 ml Tube Irrigant 180 ml 60 ml 60 ml Other 400 ml 400 ml 200 ml Output Urine Total 750 ml 650 ml 625 ml 460 ml # Bowel Movements 0 0 0 Result Diagram: 04/14/1751404/14/17514 Objective Remarks GENERAL: SKIN: Warm and dry. HEAD: Atraumatic. Normocephalic. EYES: Pupils equal and round. No scleral icterus. No injection or drainage. ENT: No nasal bleeding or discharge. Mucous membranes pink and moist. NECK: Trachea midline. No JVD. CARDIOVASCULAR: Regular rate and rhythm. RESPIRATORY: No accessory muscle use. Clear to auscultation. Breath sounds equal bilaterally. GASTROINTESTINAL: Abdomen soft, non-tender, nondistended. Hepatic and splenic margins not palpable. MUSCULOSKELETAL: Extremities without clubbing, cyanosis, or edema. No obvious deformities. NEUROLOGICAL: Awake and alert. No obvious cranial nerve deficits. Motor grossly within normal limits. Five out of 5 muscle strength in the arms and legs. Normal speech. PSYCHIATRIC: Appropriate mood and affect; insight and judgment normal. 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
[2017-04-14] MEDS: CHLORHEXIDINE 0.12% (ORAL KIT) 15 ML CUP MT SCH ×2 (08:15→19:58)
[2017-04-14] MEDS: SODIUM CHLORIDE 0.9% FLUSH 10 ML FLUSH IV FLUSH SCH ×2 (08:16→19:58)
[2017-04-14] MEDS: FAMOTIDINE 20 MG TAB PO SCH ×2 (08:16→19:58)
[2017-04-14] MEDS: INSULIN DETEMIR 100 UNITS/ML VIAL SQ SCH ×2 (08:17→20:01)
[2017-04-14 08:20] LABS: OVALOCYTES 1+ (NORMAL); SCAN/DIFF AUTO DIFF CONFIRMED
[2017-04-14] MEDS ORDERED: LACTULOSE SYRUP 20 GM/30 ML CUP PO ONE (08:45)
[2017-04-14] MEDS ORDERED: GLYCERIN ADULT 2 GM SUPP RECTAL ONE (08:45)
--- NOTE | 2017-04-14 08:48 | HHI.CCPN ---
Subjective Remarks/Hospital Course 51-year-old female with past medical history of small cell lung cancer with liver metastases diagnosed in January 2017, tobacco abuse. She has been on palliative chemotherapy since March 08. She presented to [facility] emergency department on 04/07/17 with shortness of breath and has been treated for COPD exacerbation with nebs, Solu-Medrol, cefepime and azithromycin. She was placed on BiPAP and initially had some response. However she refused BiPAP and has becoming progressively lethargic through the course of the evening. An ABG was obtained and she has acute hypercapnic respiratory failure with pH 7.12/PaCO2 116/PA O2 of 101. Her RN discussed code status with her earlier and patient stated "intubate me if I need it". Further history is limited due to patient's altered mental status secondary to hypercapnic respiratory failure. CTA 04/07 was negative for pulmonary embolism. 04/08: CPAP trials attempted patient extremely anxious, unsuccessful. Plan to to transition to Precedex infusion for CPAP trials and weaning. ABG this a.m. 7.34/63/205/34/7.9, but patient gets extremely anxious when CPAP trials were initiated. 04/09 Patient is sedated with Diprivan and intubated. Afebrile. 04/10:Afebrile. Notably anxious this afternoon. Patient placed on Precedex infusion CPAP trials initiated. 04/11: Continue attempts at CPAP trials, one Precedex unsuccessful. Patient becomes extremely anxious despite Xanax. Patient now continues on propofol sedation for mechanical ventilation synchrony. 04/12: Medications readjusted today the patient continues on CPAP trials greater than 6 hours. Sodium level was noted to continue to be elevated free water flushes added to medication regimen. Off sedation the patient continues to be a GCS of 11 T. 04/13: Lasted only 10 minutes on PSV trial today. Continues to be on propofol and fentanyl drips for vent synchrony. Tolerating tube feeding. Positive BM. Subjective: 04/14: Resting in bed. Currently not tolerating PSV trials. Arousable. Moves all 4 extremities spontaneously. No bowel movement. Objective Vital Signs Date Time Temp Pulse Resp B/P Pulse Ox O2 Delivery O2 Flow Rate FiO2 04/14/17 08:00 97 35 04/14/17 06:00 90 04/14/17 05:00 14 110/64 04/14/17 04:00 98.7 Intake and Output 04/13/17 04/13/17 04/14/17 08:00 16:00 00:00 Intake Total 951 ml 1378 ml 1483 ml Output Total 750 ml 650 ml 625 ml Balance 201 ml 728 ml 858 ml Result Diagram: 04/14/17 0515 04/14/17 0515 Imaging Last Impressions Chest X-Ray 04/14/17 0600 Signed Impressions: Service Date/Time: Friday, April 14, 2017 04:01 - CONCLUSION: 1. The patient remains intubated. 2. The lungs remain clear. Paul Green MD CT Angiography 04/07/17 0031 Signed Impressions: Service Date/Time: Friday, April 07, 2017 01:13 - CONCLUSION: 1. No pulmonary emboli. 2. Reduction in size of the mediastinal and hilar adenopathy. 3. Reduction in size of the left hepatic lobe metastasis. 4. Severe emphysematous changes. Roberth Lockett Jr., MD Objective Remarks GENERAL: 51-year-old female, critically ill currently resting in bed in no acute distress SKIN: Warm and dry. No rash HEAD: Normocephalic. EYES: Pupils equally round and reactive about 3 mm bilaterally No scleral icterus. No injection or drainage. NECK: Supple, trachea midline. No JVD or lymphadenopathy. CARDIOVASCULAR: Regular rate and rhythm , S2 no S4. Without murmurs, gallops, or rubs. RESPIRATORY: Diminished breath sounds throughout lung mathis. No wheezing appreciated. GASTROINTESTINAL: Abdomen soft, non-tender, nondistended. Active bowel sounds MUSCULOSKELETAL: No new skin peripheral edema. Neuro: Off sedation, Follows commands moves extremities 4 Date of Insertion: April 07, 2017 A/P Assessment and Plan NEURO/PSYCH: Anxiety disorder NOS Currently on propofol at 20 mu./kg/m and fentanyl drip at 200 mics grams and hour for sedation/analgesia while intubated RASS target -2 Daily sedation vacation RESP: Acute hypercapnic respiratory failure COPD exacerbation Severe emphysematous COPD [facility] /12/03/34 Ventilator bundle DuoNeb therapy every 4 hours with albuterol nebs every 2 hours when necessary Wean FiO2 keep sats greater or equal to 90% SBT daily as prasanna. Continue Solu-Medrol 40 mg IV every 8 hours Pulmonology following, Dr. Zhu CTA 04/07 significant/severe pulmonary emphysema, decreasing mediastinal lymphadenopathy. Decrease in size of hepatic mass Home medications are Spiriva 18 V daily Atrovent HFA 2 puffs 4 times a day PFTs 04/13 revealed FVC 1.3. FEV1 0.5. 38% reversibility with bronchodilator. Severe airway obstruction. CV: Hypertension Dyslipidemia History of atrial fibrillation Monitor HR and BP keep MAP>65mmHg Continue Cardizem 60 mg by mouth every 6 hours /home medication Currently holding Lipitor 20 mg daily/home medication 2-D echo 02/12 revealed EF 55-60%. No regional wall motion abnormality. GI: Mild protein calorie malnutrition Jevity 1.5 advance to target 65 mL per hour Pepcid for GI prophylaxis Colace/Senokot twice a day for bowel regimen 1 dose of MiraLAX and lactulose today /Renal: Monitor renal function I/O's, electrolytes replacement per protocol. ID: Continue cefepime 04/07. Completed therapy with azithromycin. Monitor for signs of infections ( Fever, WBC) blood and urine culture- NGTD HEME/ONC: Small cell lung cancer with liver metastases on palliative chemotherapy Leukopenia Normocytic anemia Hematology following, Dr. Martinez Not a candidate for chemotherapy until extubated ENDO: Acute hyperglycemia of critical illness On Low-dose insulin sliding scale every 6 hours. 16 units insulin scale past 24 hours Start low-dose Levemir 5 units twice a day today FEN: Hypernatremia - resolved Access - Right Port-A-Cath Prophylaxis - GI - Pepcid - DVT - SCD/Lovenox subcutaneous Critical Care: The total critical care time was 30 minutes. Time to perform other separately billable procedures was not included in the critical care time. . Rolando Connor MD April 14, 2017 08:48
[2017-04-14] MEDS ORDERED: INSULIN DETEMIR 100 UNITS/ML VIAL SQ SCH (09:00)
[2017-04-14] MEDS: DOCUSATE SODIUM 100 MG/10 ML UDC PO SCH ×2 (09:44→19:58)
[2017-04-14] MEDS: POLYETHYLENE GLYCOL 17 GM PKG PO SCH (09:45)
[2017-04-14] MEDS: SENNOSIDES SYRUP 8.8 MG/5 ML CUP PO SCH ×2 (09:45→19:58)
--- NOTE | 2017-04-14 11:02 | PD.CONS ---
Consult Service Palliative Care . Consult Requested By Dr. Martinez . Primary Care Physician Gisselle Hammond M.D. . Reason for Consultation a. To assist with evaluation and management of symptoms including: shortness of breath, anxiety, pain b. To assist medical decision maker(s) with: better understanding of current medical conditions; weighing benefits/burdens of medical treatment options; making medical treatment decisions. . HPI History of Present Illness Ms. Hook is a 51 year old female with stage IV small cell lung cancer who presented to [facility] ED via EMS on 04/06/2017 for evaluation of shortness of breath. Additionally, her past medical history is significant for COPD (on supplemental oxygen and nebulizers at home), anxiety disorder, atrial fibrillation and hypertension. Ms. Hook was diagnosed with SCLC with extensive liver metastasis in January,. She was started on palliative chemotherapy (carboplatin and etoposide) on 03/08/2017, tolerating first round of chemotherapy well. She began the second cycle of chemotherapy on 04/05/2017. Patient reportedly became quite short of breath and anxious at home on 04/06/17 after her treatment and EMS was called. Upon EMS arrival, the patient's oxygen saturation was 96% on 2L oxygen via nasal cannula with wheezing noted in all lung mathis, received albuterol 3 en route. Patient reported a productive cough he is with whitish sputum 2 days. Additional diagnostic findings while in the ED: * Vital signs: Pulse 146, respirations 48, BP 168/96, oral temperature 98.2 * WBC: 6.2, hemoglobin 11.1, hematocrit 33.5, platelets 5:30, neutrophils 85.8% * Sodium: 142, potassium 4.4, chloride 105, carbon dioxide 30.8, glucose 175, calcium 9.4 * BUN: 8, creatinine 0.60, GFR 105 * Total bilirubin: 0.2, AST 15, ALT 16, alkaline phosphatase 93 * BNP: 34 * Total protein: 7.0, albumin 3.5 * PT: 10.1, INR 0.9, APTT 30.3 * Negative urinalysis * Blood culture with no growth in 5 days. * Chest x-ray showing hyperinflation, suggesting COPD While in the ED the patient received Albuterol/Atrovent treatment x 2 and IV Solu-Medrol 1; IV antibiotics were initiated. She was subsequently admitted to intensive care for further evaluation and management of acute COPD exacerbation. CTA revealed no evidence of pulmonary emboli; reduction in size of the mediastinal and hilar adenopathy as well as reduction in the size of the left hepatic lobe metastasis; severe emphysematous changes. The patient's superintendent measurement (Dr. Zhu) and her oncologist (Dr. Martinez) were consulted for recommendations throughout her hospitalization. Prior notes, medical treatment goals and end-of-life issues were briefly discussed. The patient indicated she wanted to remain in FULL CODE at this time , stating "intubate me if I need". She stated she wanted her sister to be her "power of deputy commonwealth's attorney" but has not completed any legal documents at this point. Patient was intubated overnight on 04/08/2017 secondary to acute hypercapnic respiratory failure. Patient remains sedated with Fentanyl and Diprivan; intubated on mechanical ventilator. Unable to tolerate CPAP trials. She remains on IV steroids and IV antibiotics. Follow-up chest x-ray on 04/14/2017 unchanged , no acute cardiopulmonary disease noted. Palliative Care was consulted to assist with symptom management and to discuss with the family the benefits and burdens of her current illnesses and the options regarding future care. He . Function/Cognitive Trajectory Per review of notes, Ms. Hook is a 51-year-old female who was diagnosed with stage IV small cell lung cancer with extensive metastatic disease to the liver and January,. She follows Dr. Martinez; palliative chemotherapy was initiated on 03/08/17. The patient tolerated her first round of chemotherapy well and began the second round on 04/05/17 but had to hospitalized on 04/06/17 for management of an acute COPD exacerbation. She reports increased fatigue and decreased appetite with a 10-15 pounds in the past 4-6 weeks. The patient states she is depressed and anxious, and she does not like to be alone. . Review of Systems ROS Limitations: Clinical Condition (patient unable to participate in ROS, information obtained through review of notes and report.), Intubated, Altered Mental Status (sedated on Fentanyl and Diprivan drip), Speech Impaired Constitutional: COMPLAINS OF: Fatigue (increased fatigue), Weight loss (10 - 15 pound weight loss in the past 4-6 weeks), Change in appetite (decreased appetite), Generalized weakness Endocrine: COMPLAINS OF: Heat/cold intolerance Ears, nose, mouth, throat: DENIES: Epistaxis Respiratory: COMPLAINS OF: Cough, Sputum production, Shortness of breath Cardiovascular: COMPLAINS OF: Dyspnea on Exertion, DENIES: Lower Extremity Edema Hematologic/Lymphatics: COMPLAINS OF: Bruising Neurologic: DENIES: Seizures Psychiatric: COMPLAINS OF: Anxiety (chronic underlying anxiety disorder exacerbated by newly diagnosed metastatic cancer), Depression Past Family Social History Coded Allergies: Valium (Verified Allergy, Severe, HIVES, 04/07/17) *MDRO Multi-Drug Resistant Organism (Verified Adverse Reaction, Unknown, ) MRSA PCR Screen POSITIVE - 03/19/2016 Past Medical History Small cell lung cancer with liver mets - diagnosed in 01/2017 Anxiety disorder Atrial Fibrillation COPD HTN History of kidney stones . Past Surgical History Lnjlsl-H-Ixjl placement Hand surgery Tubal Ligation . Reported Medications Lipitor 20 mg by mouth at bedtime Cardizem 60 mg by mouth 4 times daily Spiriva 18 g inhaler daily Atrovent HFA inhaler-2 puffs daily . Current Medications Medications (Trade) Dose Ordered Sig/Rossana Route Start Time Stop Time Status Last Admin (NS Flush) 2 ml BID IV FLUSH 04/07/17 09:00 04/14/17 08:16 (NS Flush) 2 ml UNSCH PRN IV FLUSH 04/07/17 01:00 (Lovenox Inj) 40 mg Q24H SQ 04/07/17 01:00 04/14/17 01:15 (Tylenol) 650 mg Q4H PRN PO 04/07/17 01:00 (Zofran Inj) 4 mg Q6H PRN IV 04/07/17 01:00 Calcium Carbonate 1000 mg 1,000 mg TID PRN CHEW 04/07/17 01:00 (Maxipime Inj/NS Inj) 100 ml @ 200 mls/hr Q8H IV 04/07/17 09:00 04/14/17 08:16 (Pepcid) 20 mg BID PO 04/07/17 09:00 04/14/17 08:16 (Cardizem) 60 mg Q6HR PO 04/07/17 06:00 04/14/17 04:54 Miscellaneous Information Patient in critical care unit? Ass... [id number] .XX 04/07/17 02:30 04/07/17 02:30 Chlorhexidine Gluconate 15 ml 15 ml BID@08,20 MT 04/08/17 08:00 04/14/17 08:15 Potassium Chloride 100 ml @ 50 mls/hr Q2H PRN IV 04/08/17 10:45 (KCl 20 Meq Premix Inj) 100 ml @ 50 mls/hr Q2H PRN IV 04/08/17 10:45 Potassium Bicarb/ Potassium Chloride 50 meq 50 meq UNSCH PRN PO 04/08/17 10:45 Potassium Chloride 100 ml @ 25 mls/hr UNSCH PRN IV 04/08/17 10:45 Potassium Chloride 100 ml @ 50 mls/hr Q2H PRN IV 04/08/17 10:45 (Magnesium Sulfate Inj/NS Inj) 100 ml @ 50 mls/hr UNSCH PRN IV 04/08/17 10:45 Magnesium Oxide 800 mg 800 mg UNSCH PRN PO 04/08/17 10:45 (Magnesium Sulfate Inj/NS Inj) 100 ml @ 50 mls/hr UNSCH PRN IV 04/08/17 10:45 Potassium Phosphate 2000 mg 2,000 mg Q4H PRN PO 04/08/17 10:45 04/10/17 12:52 (Sodium Phosphate Inj/NS 250 ml Inj) 250 ml @ 42 mls/hr UNSCH PRN IV 04/08/17 10:45 (K-Phos) 2,000 mg UNSCH PRN PO/TUBE 04/08/17 10:33 (D50w (Vial) Inj) 25 ml UNSCH PRN IV PUSH 04/08/17 10:45 (Glucagon Inj) 1 mg UNSCH PRN OTHER 04/08/17 10:45 Insulin Aspart 1 1 Q6H SQ 04/08/17 11:00 04/14/17 04:59 (Diprivan 1000 Mg/100ml Inj) 100 ml @ 0 mls/hr TITRATE IV 04/08/17 21:15 04/14/17 08:16 Lactulose 30 ml 30 ml DAILY PRN PO 04/10/17 13:45 04/12/17 20:10 (fentaNYL DRIP) 250 ml @ 0 mls/hr TITRATE IV 04/11/17 11:30 04/14/17 04:55 (SoluMEDROL INJ) 40 mg Q8HR IVP 04/13/17 14:00 04/14/17 04:54 (Levemir Inj) 5 units Q12HR SQ 04/13/17 21:00 04/14/17 08:17 (Colace Liq) 100 mg Q12HR PO 04/14/17 09:00 (Senna Liq) 8.8 mg BID PO 04/14/17 09:00 (Miralax) 17 gm DAILY PO 04/14/17 09:00 (Glycerin Adult Supp) 2 gm BID PRN RECTAL 04/14/17 21:00 . Family History Per review of notes, patient's mother at the age of 55 with COPD. Her father of renal cancer when he was 56 years old. Sister with COPD. . Substance Use Tobacco: Patient has a history of heavy tobacco use, smoking 2 PPD since she was 11 years of age. Patient has reportedly cut down and smokes only a few cigarettes daily at this time. Alcohol: Occasional EtOH consumption Prescription med abuse: None known Illicits: None known . Psychosocial History Patient is originally from [facility]. She has 2 sisters and one brother with whom she is very close, all live locally. Patient's passed with you years ago. The patient's daughter, Gabby, states they had not been together in 15 years but he was the love of her mother's life. She states her mother's health declined after his . She has 4 adult children (Vesta, Elva, Gabby and Wolf) between the ages of 23 and 31 years of age. . Spiritual/Cultural Factors Roman Catholic allison; art critic visit refused. . Documented care wishes: No documented care wishes are available. . Today's verbally stated goals: Patient is unable to verbalize medical treatment goals secondary to patient's clinical condition. Before the patient was intubated, she verbalized aggressive goals and confirmed CODE STATUS as FULL CODE. . Family/friends goals: Spoke with patient's sister (Yessenia) and daughter (Gabby) via telephone Both Yessenia and Gabby confirmed that the patient's medical treatment goals are aggressive, and the patient's family supports these aggressive goals. . Ethical and Legal Issues Per [place] statutes, in the absence of written advanced directives healthcare proxy decision-making falls to the majority of the patient's for adult children. In reviewing notes, the patient previously verbalized that she wanted her "sister" to act in the role of the health care surrogate decision maker. However, the sister should she was referring to was not specified and the legal document was not completed. . Physical Exam Vital Signs Date Time Temp Pulse Resp B/P Pulse Ox O2 Delivery O2 Flow Rate FiO2 04/14/17 08:00 97 35 04/14/17 06:00 90 04/14/17 05:12 94 35 04/14/17 05:00 96 14 110/64 96 04/14/17 04:30 96 14 129/66 95 04/14/17 04:00 35 04/14/17 04:00 98.7 98 14 122/70 94 04/14/17 04:00 98 04/14/17 02:00 87 04/14/17 01:06 94 35 04/14/17 00:00 99.3 91 14 113/65 91 04/14/17 00:00 91 04/14/17 00:00 35 04/13/17 22:25 98 35 04/13/17 22:00 92 04/13/17 21:30 92 14 108/64 97 04/13/17 21:00 97 14 115/68 97 04/13/17 20:36 95 35 04/13/17 20:30 93 14 110/64 95 04/13/17 20:00 103 04/13/17 20:00 98.2 103 13 132/72 100 04/13/17 20:00 35 04/13/17 18:00 97 04/13/17 17:00 93 15 109/64 99 04/13/17 16:30 94 14 110/61 99 04/13/17 16:00 98.5 92 14 109/63 99 04/13/17 16:00 92 04/13/17 16:00 92 14 109/63 99 04/13/17 16:00 35 04/13/17 15:45 98 35 04/13/17 15:30 90 14 99/61 99 04/13/17 15:30 90 14 99/61 99 04/13/17 15:00 91 14 101/60 99 04/13/17 14:30 90 14 100/60 99 04/13/17 14:00 90 04/13/17 14:00 90 14 95/62 99 04/13/17 13:30 90 14 95/60 99 04/13/17 13:00 90 14 94/60 98 04/13/17 12:51 93 14 93/58 98 04/13/17 12:30 95 14 88/58 98 04/13/17 12:00 88 14 99/58 98 04/13/17 12:00 35 04/13/17 12:00 98.5 88 14 99/58 98 04/13/17 12:00 88 04/13/17 11:50 97 35 04/13/17 11:30 97 14 100/62 99 04/13/17 11:30 97 14 100/62 99 04/13/17 11:00 99 14 111/61 99 04/13/17 11:00 99 14 111/61 99 04/13/17 10:30 97 14 107/64 99 04/13/17 10:30 97 14 107/64 99 04/13/17 10:00 97 14 120/66 99 04/13/17 10:00 97 04/13/17 10:00 97 14 120/66 99 04/13/17 09:30 98 14 126/67 98 04/13/17 09:30 98 14 126/67 98 . 04/13/17 04/14/17 19:00 07:00 Intake Total 1378 ml 2844 ml Output Total 650 ml 1085 ml Balance 728 ml 1759 ml IV Total 395 ml 1603 ml Tube Feeding 403 ml 921 ml Tube Irrigant 180 ml 120 ml Other 400 ml 200 ml Output Urine Total 650 ml 1085 ml # Bowel Movements 0 0 . Exam CONSTITUTIONAL/GENERAL: This is an adequately nourished patient currently sedated and intubated on mechanical ventilator TUBES/LINES/DRAINS: Qgnhsv-g-Gort accessed, OGT, ETT, PIV 1, Reddy, soft restraints, SCDs SKIN: No jaundice, rashes, or lesions. Ecchymoses on upper extremities. No wounds seen anteriorly. Skin temperature appropriate. Not diaphoretic. HEAD: Atraumatic. Normocephalic. EYES: Pupils equal and round and reactive. No scleral icterus. No injection or drainage. Fundi not examined. ENT: ETT and OGT noted. Nose without bleeding or purulent drainage. NECK: Trachea midline. Supple, nontender. No palpable thyroid enlargement or nodularity. CARDIOVASCULAR: Regular rate and rhythm without murmurs, gallops, or rubs. No JVD. Peripheral pulses symmetric. RESPIRATORY/CHEST: Intubated on mechanical ventilator. Breath sounds diminished bilaterally. No wheezes, rales, or rhonchi. GASTROINTESTINAL: Abdomen firm, nontender. Bowel sounds present. OGT at 65ml/ hour GENITOURINARY: Without palpable bladder distension. Reddy catheter in place. MUSCULOSKELETAL: Extremities without clubbing, cyanosis. LYMPHATICS: No palpable cervical or supraclavicular adenopathy. NEUROLOGICAL: Sedated on Diprivan and Fentanyl PSYCHIATRIC: Unable to assess given patient's current clinical condition and sedation. . Diagnostic Tests Laboratory Laboratory Tests Test 04/11/17 04/13/17 04/14/17 10:10 04:28 05:15 White Blood Count 4.6 TH/MM3 2.9 TH/MM3 2.4 TH/MM3 (4.0-11.0) (4.0-11.0) (4.0-11.0) Red Blood Count 3.25 MIL/MM3 3.08 MIL/MM3 2.97 MIL/MM3 (4.00-5.30) (4.00-5.30) (4.00-5.30) Hemoglobin 9.4 GM/DL 8.9 GM/DL 8.6 GM/DL (11.6-15.3) (11.6-15.3) (11.6-15.3) Hematocrit 28.6 % 27.1 % 26.2 % (35.0-46.0) (35.0-46.0) (35.0-46.0) Mean Corpuscular Volume 88.2 FL 88.0 FL 88.4 FL (80.0-100.0) (80.0-100.0) (80.0-100.0) Mean Corpuscular Hemoglobin 29.0 PG 28.9 PG 29.1 PG (27.0-34.0) (27.0-34.0) (27.0-34.0) Mean Corpuscular Hemoglobin 32.9 % 32.8 % 32.9 % Concent (32.0-36.0) (32.0-36.0) (32.0-36.0) Red Cell Distribution Width 17.8 % 17.8 % 17.1 % (11.6-17.2) (11.6-17.2) (11.6-17.2) Platelet Count 394 TH/MM3 274 TH/MM3 182 TH/MM3 (150-450) (150-450) (150-450) Mean Platelet Volume 8.7 FL 8.9 FL 9.8 FL (7.0-11.0) (7.0-11.0) (7.0-11.0) Sodium Level 149 MEQ/L 148 MEQ/L 141 MEQ/L (136-145) (136-145) (136-145) Potassium Level 4.3 MEQ/L 4.1 MEQ/L 4.4 MEQ/L (3.5-5.1) (3.5-5.1) (3.5-5.1) Chloride Level 108 MEQ/L 104 MEQ/L 104 MEQ/L (98-107) (98-107) (98-107) Carbon Dioxide Level 37.6 MEQ/L 37.7 MEQ/L 33.4 MEQ/L (21.0-32.0) (21.0-32.0) (21.0-32.0) Anion Gap 3 MEQ/L (5-15) 6 MEQ/L (5-15) 4 MEQ/L (5-15) Blood Urea Nitrogen 35 MG/DL (7-18) 34 MG/DL (7-18) 30 MG/DL (7-18) Creatinine 0.53 MG/DL 0.54 MG/DL 0.44 MG/DL (0.50-1.00) (0.50-1.00) (0.50-1.00) Estimat Glomerular Filtration 122 ML/MIN 119 ML/MIN 151 ML/MIN Rate (>89) (>89) (>89) Random Glucose 245 MG/DL 244 MG/DL 226 MG/DL (74-106) (74-106) (74-106) Calcium Level 8.6 MG/DL 8.7 MG/DL 8.5 MG/DL (8.5-10.1) (8.5-10.1) (8.5-10.1) Phosphorus Level 2.9 MG/DL 3.2 MG/DL 2.7 MG/DL (2.5-4.9) (2.5-4.9) (2.5-4.9) Magnesium Level 2.9 MG/DL 2.6 MG/DL 2.3 MG/DL (1.5-2.5) (1.5-2.5) (1.5-2.5) Neutrophils (%) (Auto) 89.2 % 82.6 % (16.0-70.0) (16.0-70.0) Lymphocytes (%) (Auto) 6.8 % 8.9 % (9.0-44.0) (9.0-44.0) Monocytes (%) (Auto) 3.7 % (0.0-8.0) 6.6 % (0.0-8.0) Eosinophils (%) (Auto) 0.2 % (0.0-4.0) 0.0 % (0.0-4.0) Basophils (%) (Auto) 0.1 % (0.0-2.0) 1.9 % (0.0-2.0) Neutrophils # (Auto) 2.6 TH/MM3 2.0 TH/MM3 (1.8-7.7) (1.8-7.7) Lymphocytes # (Auto) 0.2 TH/MM3 0.2 TH/MM3 (1.0-4.8) (1.0-4.8) Monocytes # (Auto) 0.1 TH/MM3 0.2 TH/MM3 (0-0.9) (0-0.9) Eosinophils # (Auto) 0.0 TH/MM3 0.0 TH/MM3 (0-0.4) (0-0.4) Basophils # (Auto) 0.0 TH/MM3 0.0 TH/MM3 (0-0.2) (0-0.2) CBC Comment AUTO DIFF AUTO DIFF Differential Total Cells 100 Counted Neutrophils % (Manual) 82 % (16-70) Band Neutrophils % 13 % (0-6) Lymphocytes % 3 % (9-44) Monocytes % 2 % (0-8) Neutrophils # (Manual) 2.8 TH/MM3 (1.8-7.7) Differential Comment FINAL DIFF AUTO DIFF MANUAL CONFIRMED Platelet Estimate NORMAL (NORMAL) Platelet Morphology Comment NORMAL (NORMAL) Ovalocytes 1+ (NORMAL) Total Bilirubin 0.3 MG/DL (0.2-1.0) Aspartate Amino Transf 27 U/L (15-37) (AST/SGOT) Alanine Aminotransferase 71 U/L (10-53) (ALT/SGPT) Alkaline Phosphatase 50 U/L (45-117) Total Protein 5.5 GM/DL (6.4-8.2) Albumin 2.7 GM/DL (3.4-5.0) . Result Diagram: 04/14/1715 04/14/17514 Imaging Last 72 hours Impressions Chest X-Ray 04/14/17599 Signed Impressions: Service Date/Time: Friday, April 14, 2017 04:01 - CONCLUSION: 1. The patient remains intubated. 2. The lungs remain clear. Paul Green MD Chest X-Ray 04/13/17599 Signed Impressions: Service Date/Time: Thursday, April 13, 2017 04:51 - CONCLUSION: No significant change. No acute cardiopulmonary disease. Paul Green MD . Procedures 04/08/2017: Endotracheal intubation for acute hypercapnic respiratory failure Patient/Family Conference Present at Family Conference: Spoke with patient's (Yessenia) and daughter (Gabby) via telephone. . Family Conference Location: [facility] Issues Discussed: * Palliative care role, purpose, approach * Additional medical, psychosocial, and spiritual history * Patients general health, functional status, and cognitive changes in the months leading up to the current hospitalization * Patient/family understanding of the current medical problems * Patient/family understanding of prognosis * Patients goals of care as best understood from advance directives and/or conversations and/or values * Current medical treatment options and benefits/burdens of those options * Likely scenarios comparing ongoing aggressive care with a transition to comfort measures only * Questions answered to the best of my ability * Palliative care contact information provided . Assessment and Plan Disease Oriented Problem List: (1) Chronic obstructive pulmonary disease (2) SCLC (small cell lung carcinoma) (3) Atrial fibrillation (4) Anxiety (5) Hypertension (6) Metastases to the liver Symptom Scale: (1) Anxiety Comment: History of underlying anxiety disorder, likely exacerbated secondary to patient's newly diagnosed metastatic small cell lung cancer and acute COPD exacerbation. . (2) Shortness of breath Comment: Patient remains intubated on mechanical ventilator, unable to tolerate CPAP trials. . (3) Pain Comment: No nonverbal signs are symptoms of pain are observed on exam or reported by nursing staff. Possible causes of pain may include SMLC stents of metastatic disease to the liver, dyspnea, invasive lines, immobility, bedbound status, Reddy catheter etc. . Pertinent Non-Medical Issues Psychosocial: Patient is originally from [facility]. She has 2 sisters and one brother with whom she is very close, all live locally. Patient's passed with you years ago. The patient's daughter, Gabby, states they had not been together in 15 years but he was the love of her mother's life. She states her mother's health declined after his . She has 4 adult children (Vesta, Elva, Gabby and Wolf) between the ages of 23 and 31 years of age. Spiritual: Roman Catholic allison Legal: Per [place] statutes, in the absence of written advanced directives healthcare proxy decision-making falls to the majority of the patient's for adult children. In reviewing notes, the patient previously verbalized that she wanted her "sister" to act in the role of the health care surrogate decision maker. However, the sister should she was referring to was not specified and the legal document was not completed. Ethical issues impacting care: No known ethical issues impacting care at this time . Important Contacts Yessenia Prasad, sister: [phone] Parulsachi Fonseca, sister: Vesta Hook, daughter: [phone] Gabby Ken, daughter: [phone] Elva Hook, daughter: [phone] Wolf Ovallekaleect, son: No phone available . Prognosis Patient is a 51-year-old female with SCLC and extensive metastatic disease to the liver in January,. Patient also as advanced COPD. She was started on palliative chemotherapy in 02/2017; patient tolerated chemotherapy well and it appeared to be effective. Currently hospitalized with an acute COPD exacerbation. Patient remains sedated and intubated on mechanical ventilator, unable to tolerate CPAP trials. Goals remain aggressive, however patient's overall prognosis is poor. . Code Status: Full Code Plan * FULL CODE * Decision-making: Per [place] statutes, in the absence of written advanced directives healthcare proxy decision-making falls to the majority of the patient 's for adult children. In reviewing notes, the patient previously verbalized that she wanted her "sister" to act in the role of the health care surrogate decision maker. Unfortunately the patient cannot specify which sister she was referring to at that time, and the legal document was not completed. * Goals: Goals remain aggressive at this time. Patient is unable to verbalize medical treatment goals secondary to patient's clinical condition. Before the patient was intubated, she verbalized aggressive goals and confirmed CODE STATUS as FULL CODE. Spoke with patient's sister (Yessenia) and daughter (Gabby) via telephone Both Yessenia and Gabby confirmed that the patient's medical treatment goals are aggressive, and the patient's family supports these aggressive goals. * Symptom managementpain: Patient is currently sedated with propofol and fentanyl. No nonverbal signs are symptoms of pain are observed on exam or reported by nursing staff. Possible causes of pain may include SMLC stents of metastatic disease to the liver, dyspnea, invasive lines, immobility, bedbound status, Reddy catheter etc. Will continue to monitor; no recommendations at this time. * Symptom managementdyspnea: Patient remains intubated on mechanical ventilator secondary to acute hypercapnic respiratory failure, unable to tolerate CPAP trials. Patient was diagnosed with SCLC with extensive metastatic disease to the liver in January,. She follows Dr. Martinez. Palliative chemotherapy was initiated on 03/08/17; second round of chemotherapy was initiated on 04/05/17 but was not completed when the patient was admitted for management of acute COPD exacerbation. Chemotherapy appears to be effective per recent CTA. Pulmonology and oncology continue to follow; both agree patient' s current respiratory failure is not related to her cancer diagnosis. However, palliative chemotherapy will remain on hold until this acute event has resolved. No recommendations at this time. * Symptom managementanxiety: History of underlying anxiety disorder, likely exacerbated secondary to patient's newly diagnosed metastatic small cell lung cancer and acute COPD exacerbation. Currently sedated on Diprivan and fentanyl. * Palliative care contact information provided to patient's family * Discussed with patient's nurse, Estefanía * Palliative care will continue to follow this patient throughout her hospitalization to establish trust, assist with symptom management and clarification of medical treatment goals. . . . Thank you for the opportunity to participate in the care of Ms. Hook. . Attestation To help prompt me to consider important information that might be impacting today's encounter and assessment, information from prior notes written by myself or my colleagues may have been "brought forward" into today's note. My signature on this note, however, is an attestation that I personally performed the exam, history, and/or decision-making noted today, and, unless otherwise indicated, the interactions with patient, family, and staff as well as the review of records all occurred today. I also attest that the listed assessment and stated plan reflect my best clinical judgment today based on the combination of historical information, prior notes, and today's exam/ interactions. When time spent is documented, it refers only to time spent today by the signer, or if indicated, combined time spent today by collaborating physician/nurse practitioner. . Freda Nathan April 14, 2017 10:24
--- NOTE | 2017-04-14 14:07 | HHI.PR ---
Subjective Remarks Eyes open, weak, responded briefly to verbal stimuli Ventilator management continues, ETT, sedated Oral gastric tube with feedings Afebrile Color pale (Cailin Quan) Objective Objective Results - Vital Signs Date Time Temp Pulse Resp B/P Pulse Ox O2 Delivery O2 Flow Rate FiO2 04/14/17 12:00 35 04/14/17 12:00 98.9 108 14 92/66 100 04/14/17 12:00 108 04/14/17 11:18 99 35 04/14/17 11:00 107 14 97/65 98 04/14/17 10:30 122 16 100/66 98 04/14/17 10:00 101 04/14/17 10:00 101 14 138/74 95 04/14/17 09:30 97 15 110/74 94 04/14/17 09:00 101 16 100 04/14/17 08:00 35 04/14/17 08:00 97 35 04/14/17 08:00 98.7 85 14 109/66 95 04/14/17 08:00 85 04/14/17 06:00 90 04/14/17 05:12 94 35 04/14/17 05:00 96 14 110/64 96 04/14/17 04:30 96 14 129/66 95 04/14/17 04:00 35 04/14/17 04:00 98.7 98 14 122/70 94 04/14/17 04:00 98 04/14/17 02:00 87 04/14/17 01:06 94 35 04/14/17 00:00 99.3 91 14 113/65 91 04/14/17 00:00 91 04/14/17 00:00 35 04/13/17 22:25 98 35 04/13/17 22:00 92 04/13/17 21:30 92 14 108/64 97 04/13/17 21:00 97 14 115/68 97 04/13/17 20:36 95 35 04/13/17 20:30 93 14 110/64 95 04/13/17 20:00 103 04/13/17 20:00 98.2 103 13 132/72 100 04/13/17 20:00 35 04/13/17 18:00 97 04/13/17 17:00 93 15 109/64 99 04/13/17 16:30 94 14 110/61 99 04/13/17 16:00 98.5 92 14 109/63 99 04/13/17 16:00 92 04/13/17 16:00 92 14 109/63 99 04/13/17 16:00 35 04/13/17 15:45 98 35 04/13/17 15:30 90 14 99/61 99 04/13/17 15:30 90 14 99/61 99 04/13/17 15:00 91 14 101/60 99 04/13/17 14:30 90 14 100/60 99 04/13/17 14:00 90 04/13/17 14:00 90 14 95/62 99 I/O 04/13/17 04/13/17 04/13/17 04/14/17 04/14/17 04/14/17 07:00 15:00 23:00 07:00 15:00 23:00 Intake Total 951 ml 1378 ml 1483 ml 1361 ml Output Total 750 ml 650 ml 625 ml 460 ml Balance 201 ml 728 ml 858 ml 901 ml IV Total 258 ml 395 ml 929 ml 674 ml Tube Feeding 293 ml 403 ml 494 ml 427 ml Tube Irrigant 180 ml 60 ml 60 ml Other 400 ml 400 ml 200 ml Output Urine Total 750 ml 650 ml 625 ml 460 ml # Bowel Movements 0 0 0 (Cailin Quan) Result Diagram: 04/14/1751404/14/1715 Medications and IVs Administered Medications Medications (Trade) Dose Ordered Sig/Rossana Route PRN Reason Start Time Stop Time Status Last Admin Dose Admin Sodium Chloride (NS Flush) 2 ml BID IV FLUSH 04/07/17 09:00 04/14/17 08:16 Enoxaparin Sodium 40 mg 40 mg Q24H SQ 04/07/17 01:00 04/14/17 01:15 Cefepime HCl/ Sodium Chloride (Maxipime Inj/NS Inj) 100 ml @ 200 mls/hr Q8H IV 04/07/17 09:00 04/14/17 08:16 Famotidine (Pepcid) 20 mg BID PO 04/07/17 09:00 04/14/17 08:16 Diltiazem HCl (Cardizem) 60 mg Q6HR PO 04/07/17 06:00 04/14/17 12:20 Miscellaneous Information Patient in critical care unit? Ass... Q361D .XX 04/07/17 02:30 04/07/17 02:30 Chlorhexidine Gluconate (Peridex 0.12% Liq) 15 ml BID@08,20 MT 04/08/17 08:00 04/14/17 08:15 Potassium Phosphate (K-Phos) 2,000 mg Q4H PRN PO For Phosphorus < 2.5 mg/dL 04/08/17 10:45 04/10/17 12:52 Insulin Aspart 1 1 Q6H SQ 04/08/17 11:00 04/14/17 10:59 Propofol (Diprivan 1000 Mg/100ml Inj) 100 ml @ 0 mls/hr TITRATE IV 04/08/17 21:15 04/14/17 08:16 Lactulose 30 ml 30 ml DAILY PRN PO constipation 04/10/17 13:45 04/12/17 20:10 Fentanyl Citrate (fentaNYL DRIP) 250 ml @ 0 mls/hr TITRATE IV 04/11/17 11:30 04/14/17 04:55 Methylprednisolone Sodium Succinate (SoluMEDROL INJ) 40 mg Q8HR IVP 04/13/17 14:00 04/14/17 04:54 Insulin Detemir (Levemir Inj) 5 units Q12HR SQ 04/13/17 21:00 04/14/17 08:17 Docusate Sodium (Colace Liq) 100 mg Q12HR PO 04/14/17 09:00 04/14/17 09:44 Sennosides (Senna Liq) 8.8 mg BID PO 04/14/17 09:00 04/14/17 09:45 Polyethylene Glycol (Miralax) 17 gm DAILY PO 04/14/17 09:00 04/14/17 09:45 (Cailin Quan) ROS General: Fatigue, Weakness, Other (10 point ROS done positives noted other systems negative or unremarkable) Cardiac: Edema (mild facial and neck upper extremities) Pulmonary: Other (ventilator management, cancer) Neuro/MS: Other (sedated lightly) (Cailin Quan) Physical Exam Physical Exam PHYSICAL EXAMINATION GENERAL: This is a heel female who appears to be in no acute distress, sedated on ventilator management She she moves legs to mild tactile stimulation, then back to sleep HEAD: Normocephalic, alopecia Facial edema mild and neck OROPHARYNGEAL: Oropharynx with ET tube NECK: Supple. Mild edema CARDIAC: Regular rhythm, regular rate, S1 and S2 are heard. Distant heart sounds LUNGS: Diminished to auscultation bilaterally. Ventilator management rate set at 14, FiO2 36, PEEP of 8. Currently not assist in ventilator ABDOMEN: taut, round, Bowel sounds are heard in all four quadrants. EXTREMITIES: No lower extremity edema. Pulses equal bilateral. NEUROLOGICAL: Sedated SKIN:Warm and moist, colored dusky and pale (Cailin Quan) A/P Assessment and Plan (1) Hypercapnic respiratory failure (2) Acute exacerbation of chronic obstructive pulmonary disease (COPD) (3) SCLC (small cell lung carcinoma) with liver mets (4) Hyperglycemia (5) Depression (6) A-fib (7) Hypertension Plan Vitals reviewed, trends show no acute changes, afebrile, tachycardia noted labs reviewed, acute kidney injury/dehydration mild, no acute changes Vent Management management as per pulmonary/critical care COPD exacerbation, acute, currently has ET tube Sedation per critical care Currently rate set on 14, FiO2 36%, PEEP 8 Duonebs IV steroid, antibiotics cultures negative Small cell lung carcinoma oncology following, following appreciated appreciated. No chemotherapy until patient stabilizes Nutrition ,continue tube feeding, increased to 65 cc an hour Will add increased free water flushes, urine is dark, abdomen taut but tolerating feedings well no bm, add Lactulose Anemia, probable secondary to chronic disease monitoring medical management Lovenox for DVT prophylaxis Pepcid for GI prophylaxis Full code condition critical, no family present Discussed with Dr. Sellers, patient seen on his behalf (Cailin Quan) Assessment and Plan Patient seen and examined as above Meds and labs reviewed Discussed with RN Plan of care discussed with [employer] Discussed with respiratory therapist Condition critical prognosis guarded Labs for morning Appreciate consultants help (Sohail Sellers MD) Cailin Quan April 14, 2017 14:07 Sohail Sellers MD April 14, 2017 14:52
--- NOTE | 2017-04-14 16:57 | PD.ONC.PN ---
Subjective Subjective Remarks Pt remains afebrile. Palliative care saw pt today. Per RN she had low tidal volumes, so no CPAP today. Objective Data Date Time Temp Pulse Resp B/P Pulse Ox O2 Delivery O2 Flow Rate FiO2 04/14/17 14:45 100 35 04/14/17 14:00 103 04/14/17 12:00 35 04/14/17 12:00 98.9 108 14 92/66 100 04/14/17 12:00 108 04/14/17 11:18 99 35 04/14/17 11:00 107 14 97/65 98 04/14/17 10:30 122 16 100/66 98 04/14/17 10:00 101 04/14/17 10:00 101 14 138/74 95 04/14/17 09:30 97 15 110/74 94 04/14/17 09:00 101 16 100 04/14/17 08:00 35 04/14/17 08:00 97 35 04/14/17 08:00 98.7 85 14 109/66 95 04/14/17 08:00 85 04/14/17 06:00 90 04/14/17 05:12 94 35 04/14/17 05:00 96 14 110/64 96 04/14/17 04:30 96 14 129/66 95 04/14/17 04:00 35 04/14/17 04:00 98.7 98 14 122/70 94 04/14/17 04:00 98 04/14/17 02:00 87 04/14/17 01:06 94 35 04/14/17 00:00 99.3 91 14 113/65 91 04/14/17 00:00 91 04/14/17 00:00 35 04/13/17 22:25 98 35 04/13/17 22:00 92 04/13/17 21:30 92 14 108/64 97 04/13/17 21:00 97 14 115/68 97 04/13/17 20:36 95 35 04/13/17 20:30 93 14 110/64 95 04/13/17 20:00 103 04/13/17 20:00 98.2 103 13 132/72 100 04/13/17 20:00 35 04/13/17 18:00 97 04/13/17 17:00 93 15 109/64 99 504/14/17 04/14/17 07:00 15:00 23:00 Intake Total 1361 ml 891 ml Output Total 460 ml 450 ml Balance 901 ml 441 ml Result Diagram: 04/14/17 0515 04/14/17 0515 Laboratory Results Laboratory Tests Test 04/14/17 05:15 White Blood Count 2.4 TH/MM3 Red Blood Count 2.97 MIL/MM3 Hemoglobin 8.6 GM/DL Hematocrit 26.2 % Mean Corpuscular Volume 88.4 FL Mean Corpuscular Hemoglobin 29.1 PG Mean Corpuscular Hemoglobin 32.9 % Concent Red Cell Distribution Width 17.1 % Platelet Count 182 TH/MM3 Mean Platelet Volume 9.8 FL Neutrophils (%) (Auto) 82.6 % Lymphocytes (%) (Auto) 8.9 % Monocytes (%) (Auto) 6.6 % Eosinophils (%) (Auto) 0.0 % Basophils (%) (Auto) 1.9 % Neutrophils # (Auto) 2.0 TH/MM3 Lymphocytes # (Auto) 0.2 TH/MM3 Monocytes # (Auto) 0.2 TH/MM3 Eosinophils # (Auto) 0.0 TH/MM3 Basophils # (Auto) 0.0 TH/MM3 CBC Comment AUTO DIFF Differential Comment AUTO DIFF CONFIRMED Ovalocytes 1+ Sodium Level 141 MEQ/L Potassium Level 4.4 MEQ/L Chloride Level 104 MEQ/L Carbon Dioxide Level 33.4 MEQ/L Anion Gap 4 MEQ/L Blood Urea Nitrogen 30 MG/DL Creatinine 0.44 MG/DL Estimat Glomerular Filtration 151 ML/MIN Rate Random Glucose 226 MG/DL Calcium Level 8.5 MG/DL Phosphorus Level 2.7 MG/DL Magnesium Level 2.3 MG/DL Total Bilirubin 0.3 MG/DL Aspartate Amino Transf 27 U/L (AST/SGOT) Alanine Aminotransferase 71 U/L (ALT/SGPT) Alkaline Phosphatase 50 U/L Total Protein 5.5 GM/DL Albumin 2.7 GM/DL Imaging Studies Last 24 hours Impressions Chest X-Ray 04/14/17 0600 Signed Impressions: Service Date/Time: Friday, April 14, 2017 04:01 - CONCLUSION: 1. The patient remains intubated. 2. The lungs remain clear. Paul Green MD Administered Medications Medications (Trade) Dose Ordered Sig/Rossana Route PRN Reason Start Time Stop Time Status Last Admin Dose Admin Sodium Chloride (NS Flush) 2 ml BID IV FLUSH 04/07/17 09:00 04/14/17 08:16 Enoxaparin Sodium 40 mg 40 mg Q24H SQ 04/07/17 01:00 04/14/17 01:15 Cefepime HCl/ Sodium Chloride (Maxipime Inj/NS Inj) 100 ml @ 200 mls/hr Q8H IV 04/07/17 09:00 04/14/17 16:36 Famotidine (Pepcid) 20 mg BID PO 04/07/17 09:00 04/14/17 08:16 Diltiazem HCl (Cardizem) 60 mg Q6HR PO 04/07/17 06:00 04/14/17 16:37 Miscellaneous Information Patient in critical care unit? Ass... Q361D .XX 04/07/17 02:30 04/07/17 02:30 Chlorhexidine Gluconate (Peridex 0.12% Liq) 15 ml BID@08,20 MT 04/08/17 08:00 04/14/17 08:15 Potassium Phosphate (K-Phos) 2,000 mg Q4H PRN PO For Phosphorus < 2.5 mg/dL 04/08/17 10:45 04/10/17 12:52 Insulin Aspart 1 1 Q6H SQ 04/08/17 11:00 04/14/17 16:34 Propofol (Diprivan 1000 Mg/100ml Inj) 100 ml @ 0 mls/hr TITRATE IV 04/08/17 21:15 04/14/17 14:10 Lactulose 30 ml 30 ml DAILY PRN PO constipation 04/10/17 13:45 04/12/17 20:10 Fentanyl Citrate (fentaNYL DRIP) 250 ml @ 0 mls/hr TITRATE IV 04/11/17 11:30 04/14/17 04:55 Methylprednisolone Sodium Succinate (SoluMEDROL INJ) 40 mg Q8HR IVP 04/13/17 14:00 04/14/17 14:49 Insulin Detemir (Levemir Inj) 5 units Q12HR SQ 04/13/17 21:00 04/14/17 08:17 Docusate Sodium (Colace Liq) 100 mg Q12HR PO 04/14/17 09:00 04/14/17 09:44 Sennosides (Senna Liq) 8.8 mg BID PO 04/14/17 09:00 04/14/17 09:45 Polyethylene Glycol (Miralax) 17 gm DAILY PO 04/14/17 09:00 04/14/17 09:45 Objective Remarks GENERAL: Chronically ill appearing older female sedated and mechanically ventilated. SKIN: Warm and dry. HEAD: Normocephalic. Alopecia EYES: No scleral icterus. No injection or drainage. NECK: Supple, trachea midline. No JVD or lymphadenopathy. CARDIOVASCULAR: +S1/S2. RESPIRATORY: Scattered rhonchi. GASTROINTESTINAL: Abdomen soft, non-tender, nondistended. EXTREMITIES: No cyanosis, or edema. SCD's to BLE. NEUROLOGICAL: Sedated on propofol, but semi-awake, waving hands. Assessment/Plan Problem List: (1) SCLC (small cell lung carcinoma) Status: Chronic Plan: 04/14: Pt having low tidal volumes. No CPAP trials today. Palliative care consulted. She will not be a candidate for future chemo unless acute issues/ performance status significantly improves. 04/13: Pt did not tolerate CPAP trials today. Per RN last only 10 minutes. No chemo today. Continue IV Abx, steroids. 04/12: On Cefepime + solu-medrol. CPAP trials today. unable to resume chemo until current issues resolved 04/08/17: Continue supportive care with IV Abx, steroids. -- s/p C2 w/ carboplatin and etoposide on 04/05/17. Assessment 51 y/o female with history of small cell lung cancer admitted with COPD exacerbation. Attending Statement remains on vent. sedated. failed CPAP trial again today. Palliative care note reviewed. I recomend hospice. Family to make the decision. The exam, history, and the medical decision-making described in the above note were completed with the assistance of the mid-level provider. I reviewed and agree with the findings presented. I attest that I had a [id number] encounter with the patient on the same day, and personally performed and documented my assessment and findings in the medical record. Problem Qualifiers (1) SCLC (small cell lung carcinoma): Qualified Code: C34.90 - SCLC (small cell lung carcinoma), unspecified laterality Daisy Marquez April 14, 2017 16:57 Alyssa Martinez MD April 14, 2017 22:29
[2017-04-14] MEDS ORDERED: GLYCERIN ADULT 2 GM SUPP RECTAL PRN (21:00)
[2017-04-15] VITALS (49 sets, daily range): BP systolic 70–193; BP diastolic 49–146; PULSE 91–136; RESP 13–30; TEMP 97.8–99.2; O2SAT 92–100
[2017-04-15] MEDS: RESP: ALBUTEROL 2.5 MG/IPRATROPIUM 0.5 MG NEB (SCH) INH ×2 (03:14→07:38)
[2017-04-15] MEDS: PROPOFOL 1000 MG/100 ML INJ 100 ML IV SCH ×4 (03:38→21:02)
[2017-04-15] MEDS: INSULIN ASPART SUPPLEMENTAL SCALE SQ SCH ×5 (04:04→23:01)
[2017-04-15] MEDS: DILTIAZEM HCL 60 MG TAB PO SCH ×4 (04:32→23:04)
[2017-04-15] MEDS: methylPREDNISolone SOD SUCC 125 MG/2 ML VIAL IVP SCH ×3 (04:32→19:51)
--- NOTE | 2017-04-15 05:00 | RADRPT ---
EXAM DATE/TIME: 04/15/2017 03:57 [facility] COMPARISON: CHEST SINGLE AP, April 14, 2017, 4:01. INDICATIONS : Shortness of breath, possible pulmonary disease. MEDICAL HISTORY : Carcinoma, lung. Hypertension Chronic obstructive pulmonary disease. SURGICAL HISTORY : Tubal ligation. ENCOUNTER: Subsequent ACUITY: 1 week PAIN SCORE: Non-responsive. LOCATION: Bilateral chest FINDINGS: A single AP semierect view of the chest was obtained and again demonstrates endotracheal tube in plac e with the tip approximately 4 cm above the lia. A nasogastric tube is seen coursing through the e sophagus into the stomach. The right-sided central venous line remains in place. The lungs are hyperi nflated no confluent infiltrates or effusions. The heart size is within normal limits. The bony thora x is unremarkable. CONCLUSION: 1. No acute cardiopulmonary disease. 2. The patient remains intubated. Paul Green MD on April 15, 2017 at 4:57 Board Certified Radiologist. This report was verified electronically.
[2017-04-15 06:15] LABS: HEMATOCRIT 24.4 % (35.0-46.0); MEAN CELL VOLUME 86.8 FL (80.0-100.0); MEAN CORPUSCULAR HGB CONC 33.4 % (32.0-36.0); PLATELET COUNT 175 TH/MM3 (150-450); RED BLOOD COUNT 2.81 MIL/MM3 (4.00-5.30); RED CELL DISTRIBUTION WIDTH 17.5 % (11.6-17.2); WHITE BLOOD COUNT 1.2 TH/MM3 (4.0-11.0)
[2017-04-15 06:27] LABS: REVIEW FLAG FINAL
[2017-04-15 06:35] LABS: POTASSIUM 4.4 MEQ/L (3.5-5.1)
[2017-04-15] MEDS: CHLORHEXIDINE 0.12% (ORAL KIT) 15 ML CUP MT SCH ×2 (07:21→19:51)
[2017-04-15] MEDS: RESP: BUDESONIDE 0.5 MG/2 ML NEB NEB SCH ×2 (07:38→21:41)
--- NOTE | 2017-04-15 08:05 | HHI.PR ---
Subjective Remarks on the vent on the ventilator alert responding appropriately Objective Vital Signs Date Time Temp Pulse Resp B/P Pulse Ox O2 Delivery O2 Flow Rate FiO2 04/15/17 07:41 100 35 04/15/17 06:00 99 04/15/17 04:19 100 35 04/15/17 04:00 99 04/15/17 04:00 98.3 97 14 99/65 95 04/15/17 04:00 35 04/15/17 02:00 99 04/15/17 01:09 100 35 04/15/17 00:00 35 04/15/17 00:00 99 04/15/17 00:00 98.3 95 14 99/62 95 04/14/17 22:18 97 35 04/14/17 22:00 99 04/14/17 20:00 98.3 100 14 147/82 95 04/14/17 20:00 35 04/14/17 20:00 99 04/14/17 19:44 97 35 04/14/17 18:00 99 04/14/17 18:00 99 14 115/71 95 04/14/17 17:00 110 14 110/69 93 04/14/17 16:00 122 04/14/17 16:00 98.2 122 14 126/74 100 04/14/17 16:00 35 04/14/17 15:30 111 14 89/63 93 04/14/17 15:00 109 14 100/64 100 04/14/17 14:45 100 35 04/14/17 14:30 105 14 90/66 100 04/14/17 14:00 103 04/14/17 14:00 103 14 86/65 100 04/14/17 13:30 103 14 98/58 100 04/14/17 13:00 102 14 88/64 100 04/14/17 12:00 35 04/14/17 12:00 98.9 108 14 92/66 100 04/14/17 12:00 108 04/14/17 11:18 99 35 04/14/17 11:00 107 14 97/65 98 04/14/17 10:30 122 16 100/66 98 04/14/17 10:00 101 04/14/17 10:00 101 14 138/74 95 04/14/17 09:30 97 15 110/74 94 04/14/17 09:00 101 16 100 I/O 04/14/17 04/14/17 04/14/17 04/15/17 04/15/17 04/15/17 07:00 15:00 23:00 07:00 15:00 23:00 Intake Total 1361 ml 891 ml 850 ml 950 ml Output Total 460 ml 450 ml 450 ml 550 ml Balance 901 ml 441 ml 400 ml 400 ml IV Total 674 ml 260 ml 275 ml 325 ml Tube Feeding 427 ml 531 ml 475 ml 525 ml Tube Irrigant 60 ml 100 ml 100 ml 100 ml Other 200 ml Output Urine Total 460 ml 450 ml 450 ml 550 ml # Bowel Movements 0 0 0 0 Result Diagram: 04/15/17 0550 04/15/17 0550 Objective Remarks GENERAL: SKIN: Warm and dry. HEAD: Atraumatic. Normocephalic. EYES: Pupils equal and round. No scleral icterus. No injection or drainage. ENT: No nasal bleeding or discharge. Mucous membranes pink and moist. NECK: Trachea midline. No JVD. CARDIOVASCULAR: Regular rate and rhythm. RESPIRATORY: No accessory muscle use. Clear to auscultation. Breath sounds equal bilaterally. GASTROINTESTINAL: Abdomen soft, non-tender, nondistended. Hepatic and splenic margins not palpable. MUSCULOSKELETAL: Extremities without clubbing, cyanosis, or edema. No obvious deformities. NEUROLOGICAL: Awake and alert. No obvious cranial nerve deficits. Motor grossly within normal limits. Five out of 5 muscle strength in the arms and legs. Normal speech. PSYCHIATRIC: Appropriate mood and affect; insight and judgment normal. Assessment and Plan Assessment and Plan ass: On the vent respiratory failure copd lung CA PLANVENT SUPPORT BRONCHODILATOR THERAPY WEAN TOLERATED Audra Zhu MD April 15, 2017 08:05
--- NOTE | 2017-04-15 08:20 | HHI.CCPN ---
Subjective Remarks/Hospital Course 51-year-old female with past medical history of small cell lung cancer with liver metastases diagnosed in January 2017, tobacco abuse. She has been on palliative chemotherapy since March 08. She presented to [facility] emergency department on 04/07/17 with shortness of breath and has been treated for COPD exacerbation with nebs, Solu-Medrol, cefepime and azithromycin. She was placed on BiPAP and initially had some response. However she refused BiPAP and has becoming progressively lethargic through the course of the evening. An ABG was obtained and she has acute hypercapnic respiratory failure with pH 7.12/PaCO2 116/PA O2 of 101. Her RN discussed code status with her earlier and patient stated "intubate me if I need it". Further history is limited due to patient's altered mental status secondary to hypercapnic respiratory failure. CTA 04/07 was negative for pulmonary embolism. 04/08: CPAP trials attempted patient extremely anxious, unsuccessful. Plan to to transition to Precedex infusion for CPAP trials and weaning. ABG this a.m. 7.34/63/205/34/7.9, but patient gets extremely anxious when CPAP trials were initiated. 04/09 Patient is sedated with Diprivan and intubated. Afebrile. 04/10:Afebrile. Notably anxious this afternoon. Patient placed on Precedex infusion CPAP trials initiated. 04/11: Continue attempts at CPAP trials, one Precedex unsuccessful. Patient becomes extremely anxious despite Xanax. Patient now continues on propofol sedation for mechanical ventilation synchrony. 04/12: Medications readjusted today the patient continues on CPAP trials greater than 6 hours. Sodium level was noted to continue to be elevated free water flushes added to medication regimen. Off sedation the patient continues to be a GCS of 11 T. 04/13: Lasted only 10 minutes on PSV trial today. Continues to be on propofol and fentanyl drips for vent synchrony. Tolerating tube feeding. Positive BM. 04/14: Resting in bed. Currently not tolerating PSV trials. Arousable. Moves all 4 extremities spontaneously. No bowel movement. Subjective: 04/15: Seen with Dr. Zhu. No acute distress. Awake and alert and following commands. Currently afebrile. Objective Vital Signs Date Time Temp Pulse Resp B/P Pulse Ox O2 Delivery O2 Flow Rate FiO2 04/15/17 08:13 100 35 04/15/17 06:00 99 04/15/17 04:00 98.3 14 99/65 Intake and Output 04/14/17 04/14/17 04/15/17 08:00 16:00 00:00 Intake Total 1361 ml 891 ml 850 ml Output Total 460 ml 450 ml 450 ml Balance 901 ml 441 ml 400 ml Result Diagram: 04/15/17 0550 04/15/17 0550 Imaging Last Impressions Chest X-Ray 04/15/17 0600 Signed Impressions: Service Date/Time: March 03:57 - CONCLUSION: 1. No acute cardiopulmonary disease. 2. The patient remains intubated. Paul Green MD CT Angiography 04/07/17 0031 Signed Impressions: Service Date/Time: Friday, April 07, 2017 01:13 - CONCLUSION: 1. No pulmonary emboli. 2. Reduction in size of the mediastinal and hilar adenopathy. 3. Reduction in size of the left hepatic lobe metastasis. 4. Severe emphysematous changes. Roberth Lockett Jr., MD Objective Remarks GENERAL: 51-year-old female, critically ill currently resting in bed in no acute distress SKIN: Warm and dry. No rash HEAD: Normocephalic. EYES: Pupils equally round and reactive about 3 mm bilaterally No scleral icterus. No injection or drainage. NECK: Supple, trachea midline. No JVD or lymphadenopathy. CARDIOVASCULAR: Regular rate and rhythm , S2 no S4. Without murmurs, gallops, or rubs. RESPIRATORY: Diminished breath sounds throughout lung mathis. No wheezing appreciated. GASTROINTESTINAL: Abdomen soft, non-tender, nondistended. Active bowel sounds MUSCULOSKELETAL: No new skin peripheral edema. Neuro: Off sedation, Follows commands moves extremities 4 Date of Insertion: April 07, 2017 A/P Assessment and Plan NEURO/PSYCH: Anxiety disorder NOS Currently on propofol at 20 micrograms/kg/m and fentanyl drip at 200 micrograms an hour for sedation/analgesia while intubated RASS target -2 Daily sedation vacation RESP: Acute hypercapnic respiratory failure COPD exacerbation Severe emphysematous COPD PRVC 16/550/12/03/34 Ventilator bundle DuoNeb therapy every 4 hours with albuterol nebs every 2 hours when necessary Wean FiO2 keep sats greater or equal to 90% SBT daily as prasanna. Continue Solu-Medrol 40 mg IV every 8 hours Pulmonology following, Dr. Zhu CTA 04/07 significant/severe pulmonary emphysema, decreasing mediastinal lymphadenopathy. Decrease in size of hepatic mass Home medications are Spiriva 18 V daily Atrovent HFA 2 puffs 4 times a day PFTs 04/13 revealed FVC 1.3. FEV1 0.5. 38% reversibility with bronchodilator. Severe airway obstruction. Will attempt extubation today if passes spontaneous breathing trials. BiPAP at bedside CV: Hypertension Dyslipidemia History of atrial fibrillation Monitor HR and BP keep MAP>65mmHg Continue Cardizem 60 mg by mouth every 6 hours /home medication Currently holding Lipitor 20 mg daily/home medication 2-D echo 02/12 revealed EF 55-60%. No regional wall motion abnormality. GI: Mild protein calorie malnutrition Jevity 1.5 advance to target 65 mL per hour Pepcid for GI prophylaxis Colace/Senokot twice a day for bowel regimen /Renal: Monitor renal function I/O's, electrolytes replacement per protocol. ID: Continue cefepime 04/07. Completed therapy with azithromycin. Monitor for signs of infections ( Fever, WBC) blood and urine culture- NGTD HEME/ONC: Small cell lung cancer with liver metastases on palliative chemotherapy Leukopenia Normocytic anemia Hematology following, Dr. Martinez Not a candidate for chemotherapy until extubated Noted consultation a palliative care per hematology yesterday. Remains full code ENDO: Acute hyperglycemia of critical illness On Low-dose insulin sliding scale every 4 hours. 21 unit insulin scale past 24 hours. Continue Levemir but increased from 5 to 12 units twice a day today FEN: Hypernatremia - resolved Access - Right Port-A-Cath Prophylaxis - GI - Pepcid - DVT - SCD/Lovenox subcutaneous Critical Care: The total critical care time was 30 minutes. Time to perform other separately billable procedures was not included in the critical care time. . Rolando Connor MD April 15, 2017 08:20
[2017-04-15] MEDS: DOCUSATE SODIUM 100 MG/10 ML UDC PO SCH ×2 (08:47→19:51)
[2017-04-15] MEDS: FAMOTIDINE 20 MG TAB PO SCH ×2 (08:47→19:51)
[2017-04-15] MEDS: SENNOSIDES SYRUP 8.8 MG/5 ML CUP PO SCH ×2 (08:47→19:51)
[2017-04-15] MEDS: POLYETHYLENE GLYCOL 17 GM PKG PO SCH ×2 (08:47→19:50)
[2017-04-15] MEDS: SODIUM CHLORIDE 0.9% FLUSH 10 ML FLUSH IV FLUSH SCH ×2 (08:48→19:51)
[2017-04-15] MEDS: CEFEPIME INJ 1,000 MG in SODIUM CHLORIDE 0.9% INJ 100 ML IV SCH ×3 (08:48→23:04)
[2017-04-15] MEDS ORDERED: INSULIN DETEMIR 100 UNITS/ML VIAL SQ SCH (09:00)
--- NOTE | 2017-04-15 09:20 | HHI.PR ---
Subjective Subjective Remarks awake, following simple commands remains on vent off Diprivan on CPAP, tolerating ok, slightly tachy abd. distended, had BM tolerating tube feeding okay no fever Review of Systems Constitutional Constitutional Remarks unable to obtain ROS Vitals/Results Intake & Output 04/14/17 04/14/17 04/15/17 15:00 23:00 07:00 Intake Total 891 ml 850 ml 950 ml Output Total 450 ml 450 ml 550 ml Balance 441 ml 400 ml 400 ml IV Total 260 ml 275 ml 325 ml Tube Feeding 531 ml 475 ml 525 ml Tube Irrigant 100 ml 100 ml 100 ml Output Urine Total 450 ml 450 ml 550 ml # Bowel Movements 0 0 0 Vital Signs Vital Signs Date Time Temp Pulse Resp B/P Pulse Ox O2 Delivery O2 Flow Rate FiO2 04/15/17 08:13 100 35 04/15/17 07:41 100 35 04/15/17 06:00 99 04/15/17 04:19 100 35 04/15/17 04:00 99 04/15/17 04:00 98.3 97 14 99/65 95 04/15/17 04:00 35 04/15/17 02:00 99 04/15/17 01:09 100 35 04/15/17 00:00 35 04/15/17 00:00 99 04/15/17 00:00 98.3 95 14 99/62 95 04/14/17 22:18 97 35 04/14/17 22:00 99 04/14/17 20:00 98.3 100 14 147/82 95 04/14/17 20:00 35 04/14/17 20:00 99 04/14/17 19:44 97 35 04/14/17 18:00 99 04/14/17 18:00 99 14 115/71 95 04/14/17 17:00 110 14 110/69 93 04/14/17 16:00 122 04/14/17 16:00 98.2 122 14 126/74 100 04/14/17 16:00 35 04/14/17 15:30 111 14 89/63 93 04/14/17 15:00 109 14 100/64 100 04/14/17 14:45 100 35 04/14/17 14:30 105 14 90/66 100 04/14/17 14:00 103 04/14/17 14:00 103 14 86/65 100 04/14/17 13:30 103 14 98/58 100 04/14/17 13:00 102 14 88/64 100 04/14/17 12:00 35 04/14/17 12:00 98.9 108 14 92/66 100 04/14/17 12:00 108 04/14/17 11:18 99 35 04/14/17 11:00 107 14 97/65 98 04/14/17 10:30 122 16 100/66 98 04/14/17 10:00 101 04/14/17 10:00 101 14 138/74 95 04/14/17 09:30 97 15 110/74 94 CBC/BMP: 04/15/17 0550 04/15/17 0550 Lab Results Laboratory Tests Test 04/15/17 05:50 White Blood Count 1.2 TH/MM3 Red Blood Count 2.81 MIL/MM3 Hemoglobin 8.2 GM/DL Hematocrit 24.4 % Mean Corpuscular Volume 86.8 FL Mean Corpuscular Hemoglobin 29.0 PG Mean Corpuscular Hemoglobin 33.4 % Concent Red Cell Distribution Width 17.5 % Platelet Count 175 TH/MM3 Mean Platelet Volume 9.2 FL Sodium Level 144 MEQ/L Potassium Level 4.4 MEQ/L Chloride Level 103 MEQ/L Carbon Dioxide Level 35.0 MEQ/L Anion Gap 6 MEQ/L Blood Urea Nitrogen 33 MG/DL Creatinine 0.63 MG/DL Estimat Glomerular Filtration 100 ML/MIN Rate Random Glucose 281 MG/DL Calcium Level 8.3 MG/DL Physical Exam General General Appearance: Well Developed, Well Nourished, No Acute Distress, Comfortable Eyes Eye Exam: Pupils Equal, Pupils Reactive Ears & Nose Ears & Nose Exam: Nasal Mucosa [facility] Throat Throat Exam: Oral Mucosa [facility] & Moist Neck Neck Exam: Neck Supple, Trachea Midline Pulmonary Resp Exam: No Distress, Decreased Bases Cardiology CV Exam: Good Perfusion, Tachycardia Gastrointestinal/Abdomen GI Exam: Soft, Non-Tender, Bowel Sounds Present, Distended GI Remarks tube feeding Genitourinary Exam: Clear Urine Remarks DAMON Musculoskeletal MS Exam: Joints Intact Integumentary Skin Exam: Warm, Dry Extremeties Extremities Exam: Pedal Pulses Palpable, Trace Edema Neurologic Neuro Remarks awake, following commands VTE Prophylaxis VTE Prophylaxis Meds: Lovenox PUD Prophylasis PUD Remarks Pepcid Assessment/Plan Problem List: (1) Hypercapnic respiratory failure (2) Acute exacerbation of chronic obstructive pulmonary disease (COPD) (3) SCLC (small cell lung carcinoma) Plan: with liver mets (4) Hyperglycemia (5) Depression (6) A-fib (7) Hypertension Assessment/Plan Vent Management management as per pulmonary/critical care for CPAP trial today off sedation for now Duonebs IV steroids empiric antibiotics cultures negative oncology following, input appreciated CT PE protocol reviewed reduction in size of mediastinal and hilar adenopathy. An reduction in size of left hepatic lobe metastasis. Severe emphysematous changes. no chemotherapy plans at this time, hospice recommended Leukopenia, monitor WBC continue tube feeding Bowel regimen Anemia post hydration will monitor hx afib, continue Cardizem via OGT remains SR/ST Lovenox for DVT prophylaxis Pepcid for GI prophylaxis Palliative care following, goals remains aggressive. Input appreciated CM for dc planning, select rehab Full code condition guarded Labs reviewed D/W RN D/W Dr. Sellers This patient was seen by myself and Dr. Sellers, this note is written his behalf Problem Qualifiers (1) Hypercapnic respiratory failure: Qualified Code: J96.02 - Acute respiratory failure with hypercapnia (2) SCLC (small cell lung carcinoma): Qualified Code: C34.90 - SCLC (small cell lung carcinoma), unspecified laterality (3) Depression: Qualified Code: F32.9 - Depression, unspecified depression type (4) A-fib: Qualified Code: I48.91 - Atrial fibrillation, unspecified type (5) Hypertension: Qualified Code: I10 - Essential hypertension Kristy Andrews April 15, 2017 09:20
[2017-04-15] MEDS: ONDANSETRON HCL 4 MG/2 ML VIAL IV PRN (12:16)
[2017-04-15] MEDS ORDERED: LABETALOL HCL 100 MG/20 ML VIAL IV PUSH PRN (13:00)
[2017-04-15] MEDS ORDERED: NITROGLYCERIN 2% OINT 1 GM PACKET TOPICAL PRN (13:00)
[2017-04-15] MEDS: SODIUM CHLOR 0.9% 1000 ML INJ 1,000 ML IV SCH ×2 (13:00→23:05)
[2017-04-15] MEDS ORDERED: hydrALAZINE HCL 20 MG/ML VIAL IV PUSH PRN (13:00)
[2017-04-15] MEDS ORDERED: ACETAMINOPHEN/HYDROcodone 325 MG/5 MG TAB PO PRN (13:00)
[2017-04-15] MEDS ORDERED: MORPHINE SULFATE 4 MG/ML INJ IV PUSH PRN (13:00)
[2017-04-15] MEDS ORDERED: PROCHLORPERAZINE INJ 10 MG/2 ML VIAL IV PUSH PRN (13:00)
[2017-04-15] MEDS: METOCLOPRAMIDE HCL 10 MG/2 ML VIAL IV PUSH SCH ×2 (13:49→19:51)
[2017-04-15] MEDS ORDERED: ETOMIDATE 40 MG/20 ML VIAL ONE (14:19)
[2017-04-15] MEDS ORDERED: PROPOFOL 1000 MG/100 ML INJ 100 ML ONE (14:21)
[2017-04-15] MEDS ORDERED: fentaNYL DRIP 250 ML IV SCH (14:30)
--- NOTE | 2017-04-15 14:32 | PD.PROCEDR ---
Procedure Note Procedure DATE: 04/15/2017 PROCEDURE: Orotracheal intubation INDICATION: Respiratory failure DETAILS OF PROCEDURE The patient was placed in optimal position and preoxygenated with 100% FiO2 via bag valve mask. At the start oxygen saturation was 100%. The patient was administered 20 mg etomidate IV and 50 mg rocuronium IV. I entered the oropharynx with a size 4 GVL glidescope laryngoscope blade and obtained a grade 2 view of the airway. On single attempt a size 8.5 cuffed endotracheal tube was passed through the vocal cords. Correct tube location was confirmed with end tidal CO2 detector and by auscultating over bilateral lung mathis. The endotracheal tube was secured with adhesive tape at a depth of 24 cm at the lips. The patient was connected to the ventilator. The patient tolerated the procedure well without any apparent complications. Oxygen saturations were maintained greater than 95% all times. STAT chest x-ray pending at time of dictation. Rolando Connor MD April 15, 2017 14:32
--- NOTE | 2017-04-15 14:50 | RADRPT ---
EXAM DATE/TIME: 04/15/2017 13:34 [facility] COMPARISON: No previous studies available for comparison. INDICATIONS : Nausea MEDICAL HISTORY : Carcinoma, lung. Chronic obstructive pulmonary disease. Hypertension. SURGICAL HISTORY : tubal ligation ENCOUNTER: Initial ACUITY: 4 - 6 days PAIN SCORE: Non-responsive. LOCATION: Bilateral abdomen FINDINGS: A single erect view of the abdomen demonstrates the lower lungs to be clear. No evidence of free int raperitoneal gas. The visualized bowel loops are unremarkable. CONCLUSION: Normal examination. Tomasz New MD on April 15, 2017 at 14:48 Board Certified Radiologist. This report was verified electronically.
[2017-04-15] MEDS ORDERED: DIATRIZOATE MEGLUM/DIATRIZOATE SOD 9 ML CUP PO ONE (15:00)
--- NOTE | 2017-04-15 15:01 | PD.ONC.PN ---
Subjective Subjective Remarks Afebrile overnight. Patient extubated this morning. She has been severely nauseated since extubation. Objective Data Date Time Temp Pulse Resp B/P Pulse Ox O2 Delivery O2 Flow Rate FiO2 04/15/17 12:35 99 Nasal Cannula 4 04/15/17 12:35 99 Nasal Cannula 4.00 04/15/17 10:00 102 04/15/17 08:13 100 35 04/15/17 08:00 96 04/15/17 08:00 99.0 96 18 122/68 100 04/15/17 08:00 35 04/15/17 07:41 100 35 04/15/17 07:20 99 21 04/15/17 07:00 91 14 125/70 98 04/15/17 06:00 99 04/15/17 04:19 100 35 04/15/17 04:00 99 04/15/17 04:00 98.3 97 14 99/65 95 04/15/17 04:00 35 04/15/17 02:00 99 04/15/17 01:09 100 35 04/15/17 00:00 35 04/15/17 00:00 99 04/15/17 00:00 98.3 95 14 99/62 95 04/14/17 22:18 97 35 04/14/17 22:00 99 04/14/17 20:00 98.3 100 14 147/82 95 04/14/17 20:00 35 04/14/17 20:00 99 04/14/17 19:44 97 35 04/14/17 18:00 99 04/14/17 18:00 99 14 115/71 95 04/14/17 17:00 110 14 110/69 93 04/14/17 16:00 122 04/14/17 16:00 98.2 122 14 126/74 100 04/14/17 16:00 35 04/14/17 15:30 111 14 89/63 93 04/14/17 15:00 109 14 100/64 100 04/15/17 04/15/17 04/15/17 07:00 15:00 23:00 Intake Total 950 ml Output Total 550 ml Balance 400 ml Result Diagram: 04/15/17 0550 04/15/17 0550 Laboratory Results Laboratory Tests Test 04/15/17 05:50 White Blood Count 1.2 TH/MM3 Red Blood Count 2.81 MIL/MM3 Hemoglobin 8.2 GM/DL Hematocrit 24.4 % Mean Corpuscular Volume 86.8 FL Mean Corpuscular Hemoglobin 29.0 PG Mean Corpuscular Hemoglobin 33.4 % Concent Red Cell Distribution Width 17.5 % Platelet Count 175 TH/MM3 Mean Platelet Volume 9.2 FL Sodium Level 144 MEQ/L Potassium Level 4.4 MEQ/L Chloride Level 103 MEQ/L Carbon Dioxide Level 35.0 MEQ/L Anion Gap 6 MEQ/L Blood Urea Nitrogen 33 MG/DL Creatinine 0.63 MG/DL Estimat Glomerular Filtration 100 ML/MIN Rate Random Glucose 281 MG/DL Calcium Level 8.3 MG/DL Imaging Studies Last 24 hours Impressions Chest X-Ray 04/15/17 0600 Signed Impressions: Service Date/Time: March 03:57 - CONCLUSION: 1. No acute cardiopulmonary disease. 2. The patient remains intubated. Paul Green MD Administered Medications Medications (Trade) Dose Ordered Sig/Rossana Route PRN Reason Start Time Stop Time Status Last Admin Dose Admin Sodium Chloride (NS Flush) 2 ml BID IV FLUSH 04/07/17 09:00 04/15/17 08:48 Sodium Chloride (NS Flush) 2 ml UNSCH PRN IV FLUSH FLUSH AFTER USING IV ACCESS 04/07/17 01:00 04/15/17 13:12 Enoxaparin Sodium (Lovenox Inj) 40 mg Q24H SQ 04/07/17 01:00 04/14/17 23:39 Ondansetron HCl 4 mg 4 mg Q6H PRN IV NAUSEA 04/07/17 01:00 04/15/17 12:16 Cefepime HCl/ Sodium Chloride (Maxipime Inj/NS Inj) 100 ml @ 200 mls/hr Q8H IV 04/07/17 09:00 04/15/17 08:48 Famotidine (Pepcid) 20 mg BID PO 04/07/17 09:00 04/15/17 08:47 Diltiazem HCl (Cardizem) 60 mg Q6HR PO 04/07/17 06:00 04/15/17 04:32 Miscellaneous Information Patient in critical care unit? Ass... [id number] .[id number] 04/07/17 02:30 04/07/17 02:30 Potassium Phosphate (K-Phos) 2,000 mg Q4H PRN PO For Phosphorus < 2.5 mg/dL 04/08/17 10:45 04/10/17 12:52 Lactulose (Lactulose Liq) 30 ml DAILY PRN PO constipation 04/10/17 13:45 04/12/17 20:10 Methylprednisolone Sodium Succinate (SoluMEDROL INJ) 40 mg Q8HR IVP 04/13/17 14:00 04/15/17 13:01 Docusate Sodium (Colace Liq) 100 mg Q12HR PO 04/14/17 09:00 04/15/17 08:47 Sennosides (Senna Liq) 8.8 mg BID PO 04/14/17 09:00 04/15/17 08:47 Polyethylene Glycol (Miralax) 17 gm DAILY PO 04/14/17 09:00 04/15/17 08:47 Insulin Detemir (Levemir Inj) 12 units Q12HR SQ 04/15/17 09:00 Hold 04/15/17 08:47 Insulin Aspart 1 1 Q4HR SQ 04/15/17 12:00 04/15/17 12:00 Sodium Chloride (NS 1000 ml Inj) 1,000 ml @ 82 mls/hr [id number] IV 04/15/17 12:45 04/15/17 13:00 Nitroglycerin (Nitroglycerin 2% Oint) 2 inch Q6H PRN TOPICAL SBP>160, DBP>90 04/15/17 13:00 04/15/17 13:50 Hydralazine HCl (Apresoline Inj) 10 mg Q1H PRN IV PUSH SBP>160, DBP>90 04/15/17 13:00 04/15/17 13:12 Labetalol HCl (Trandate Inj) 10 mg Q1H PRN IV PUSH SBP>160, DBP>90, HR>65 04/15/17 13:00 04/15/17 13:49 Morphine Sulfate (Morphine Inj) 2 mg Q3H PRN IV PUSH PAIN SCALE 6 TO 10 04/15/17 13:00 04/15/17 13:01 Prochlorperazine Edisylate (Compazine Inj) 5 mg Q6H PRN IV PUSH nausea 04/15/17 13:00 04/15/17 13:11 Metoclopramide HCl 5 mg 5 mg Q8HR IV PUSH 04/15/17 14:00 04/15/17 13:49 Propofol (Diprivan 1000 Mg/100ml Inj) 100 ml @ 0 mls/hr TITRATE IV 04/15/17 14:30 04/15/17 14:57 Objective Remarks GENERAL: Middle aged female, hunched over in bed vomiting into emesis basin SKIN: Warm and dry. HEAD: Normocephalic. EYES: No injection or drainage. NECK: Supple, trachea midline. CARDIOVASCULAR: +S1/S2, tachy RESPIRATORY: Breath sounds equal bilaterally. No accessory muscle use. on 4L O2 via NC GASTROINTESTINAL: Abdomen soft, non-tender, nondistended. EXTREMITIES: No cyanosis NEUROLOGICAL: No obvious focal deficit. Awake, alert, and oriented x3. Assessment/Plan Problem List: (1) SCLC (small cell lung carcinoma) Status: Chronic Plan: 04/15: patient now extubated but having vomiting. will wait for PS to improve before resuming chemotherapy 04/14: Pt having low tidal volumes. No CPAP trials today. Palliative care consulted. She will not be a candidate for future chemo unless acute issues/ performance status significantly improves. 04/13: Pt did not tolerate CPAP trials today. Per RN last only 10 minutes. No chemo today. Continue IV Abx, steroids. 04/12: On Cefepime + solu-medrol. CPAP trials today. unable to resume chemo until current issues resolved 04/08/17: Continue supportive care with IV Abx, steroids. -- s/p C2 w/ carboplatin and etoposide on 04/05/17. (2) Intractable vomiting with nausea Status: Acute Plan: --check hepatic function panel --abdominal x-ray benign --patient w/ h/o hepatic mets --unclear etiology Assessment 51 y/o female with history of small cell lung cancer admitted with COPD exacerbation. Attending Statement pt was extubated in the morning , now reintubated. Pt wants full code. Poor prognosis. recommend BSC with hospice. Problem Qualifiers (1) SCLC (small cell lung carcinoma): Qualified Code: C34.90 - SCLC (small cell lung carcinoma), unspecified laterality Margo Wan April 15, 2017 15:01 Alyssa Martinez MD April 15, 2017 22:37
--- NOTE | 2017-04-15 15:01 | RADRPT ---
EXAM DATE/TIME: 04/15/2017 14:31 [facility] COMPARISON: CHEST SINGLE AP, April 15, 2017, 3:57. INDICATIONS : Post intubation. MEDICAL HISTORY : Carcinoma, lung. Chronic obstructive pulmonary disease. Hypertension. SURGICAL HISTORY : tubal ligation ENCOUNTER: Initial ACUITY: 4 - 6 days PAIN SCORE: Non-responsive. LOCATION: Bilateral chest FINDINGS: A single view of the chest demonstrates the endotracheal tube, nasogastric tube, right-sided Infuse-a -Port catheter are all in excellent position. Mild hyperinflation throughout the lungs. The cardiome diastinal contours are unremarkable. Osseous structures are intact. CONCLUSION: Hyperexpansion consistent with COPD. Catheters are all in excellent position Tomasz New MD on April 15, 2017 at 14:59 Board Certified Radiologist. This report was verified electronically.
[2017-04-15 15:21] LABS: AUTOMATED NEUTROPHIL # 1.6 TH/MM3 (1.8-7.7); BASOPHIL % 0.1 % (0.0-2.0); HEMATOCRIT 29.9 % (35.0-46.0); LYMPH % 8.9 % (9.0-44.0); LYMPHOCYTE # 0.2 TH/MM3 (1.0-4.8); MEAN CELL VOLUME 87.6 FL (80.0-100.0); MEAN CORPUSCULAR HEMOGLOBIN 29.2 PG (27.0-34.0); MEAN CORPUSCULAR HGB CONC 33.4 % (32.0-36.0); MONO % 10.3 % (0.0-8.0); NEUT % 80.7 % (16.0-70.0); PLATELET COUNT 187 TH/MM3 (150-450); RED BLOOD COUNT 3.41 MIL/MM3 (4.00-5.30); RED CELL DISTRIBUTION WIDTH 17.4 % (11.6-17.2)
[2017-04-15] MEDS: RESP: ALBUTEROL 2.5 MG/3 ML NEB (PRN) INH (15:33)
[2017-04-15 15:34] LABS: HEMO FLAGS AUTO DIFF
[2017-04-15 15:36] LABS: ALT (GPT) 94 U/L (10-53); APTT (PATIENT) 17.8 SEC (24.3-30.1); AST (GOT) 38 U/L (15-37); PROTHROMBIN TIME - PATIENT 10.8 SEC (9.8-11.6)
[2017-04-15 15:43] LABS: ALKALINE PHOSPHATASE 51 U/L (45-117); INDIRECT BILIRUBIN 0.3 MG/DL (0.0-0.8); TOTAL BILIRUBIN ADULT 0.5 MG/DL (0.2-1.0)
[2017-04-15] MEDS ORDERED: PHENYLEPHRINE HCL 10 MG/ML VIAL ONE (16:08)
[2017-04-15] MEDS ORDERED: TERBUTALINE INJ 1 MG/ML AMP SQ PRN (16:15)
[2017-04-15] MEDS ORDERED: PHENYLEPHRINE INJ 160 MG in DEXTROSE 5% IN WATE 500 ML INJ 484 ML IV SCH ×2 (16:15)
[2017-04-15] MEDS ORDERED: SODIUM CHLOR 0.9% 1000 ML INJ 1,000 ML IV ONE (16:15)
[2017-04-15 16:22] LABS: BANDS 3 % (0-6); CORRECTED NUCLEATED RBC 3 /100 WBC (0-0); NEUTROPHIL # MANUAL DIFF 1.6 TH/MM3 (1.8-7.7); PLASMA CELLS 1 % (0-0); POLYS (SEG NEUTROPHILS) 75 % (16-70); WBC DIFF SAMPLE 100
[2017-04-15 16:23] LABS: OVALOCYTES 2+ (NORMAL); PLATELET ESTIMATE SMEAR NORMAL (NORMAL); PLATELET MORPHOLOGY NORMAL (NORMAL); SCAN/DIFF FINAL DIFF MANUAL; STOMATOCYTES 1+ (NORMAL)
[2017-04-15] MEDS ORDERED: IOHEXOL 350 MG/ML 10 ML VIAL (for RAD DIAG) IV ONE (18:11)
[2017-04-15] MEDS: RESP: ALBUTEROL 2.5 MG/IPRATROPIUM 0.5 MG NEB (SCH) NEB ×2 (18:27→20:50)
[2017-04-15] MEDS ORDERED: METHYLNALTREXONE BROMIDE 12 MG/0.6 ML VIAL SQ ONE (18:45)
[2017-04-15] MEDS ORDERED: MINERAL OIL ENEMA 118 ML BTL RECTAL ONE (18:45)
--- NOTE | 2017-04-15 19:14 | RADRPT ---
EXAM DATE/TIME: 04/15/2017 17:45 [facility] COMPARISON: CT ABDOMEN & PELVIS W & W/O CONTRAST, February 06, 2017, 17:14. INDICATIONS : Nausea with pain. IV CONTRAST: 70 cc Omnipaque 350 (iohexol) IV ORAL CONTRAST: Prescribed oral contrast ingested. RADIATION DOSE: 9.98 CTDIvol (mGy) MEDICAL HISTORY : None SURGICAL HISTORY : None. ENCOUNTER: Initial ACUITY: 1 day PAIN SCALE: Non-responsive LOCATION: Bilateral upper quadrant and lower quadrant. TECHNIQUE: Volumetric scanning of the abdomen and pelvis was performed. Using automated exposure control and adjustment of the mA and/or kV according to patient size, radiation dose was kept as low as reasonably achievable to obtain optimal diagnostic quality images. FINDINGS: Lung bases are clear. The liver is free of focal defects. Gallbladder is small and co ntracted around a stone. The common duct is dilated into the head of the pancreas. There is mild in trahepatic biliary ductal dilatation. There is a 1 cm low density lesion laterally in the right lobe of the liver, nonspecific. The pancreatic duct is minimally dilated. In addition there is an area of low density in the midbody of the pancreas that is probably volume averaging from the fat. Multiple stones are seen in the right kidney. There are no renal stones or calcification identified. There is no ascites or adenopathy appreciated. There is no retroperitoneal adenopathy. Pelvic contents are unremarkable. There is no ascites, free air or obstruction. CONCLUSION: 1. Biliary dilatation as described above. 2. Mass is again identified laterally in the right lobe. Central mass seen previously is poorly demon strated on today's exam because of phase of the contrast. 3. Gallstones around a contracted gallbladder. Fred Vieyra MD FACR on April 15, 2017 at 18:39 Board Certified Radiologist. This report was verified electronically.
[2017-04-15 21:07] LABS: BLOOD GAS BASE EXCESS 8.2 mmol/L (-2-2); BLOOD GAS CARBOXYHEMOGLOBIN 1.7 % (0-4); BLOOD GAS HCO3 33 mmol/L (22-26); BLOOD GAS METHEMOGLOBIN 0.9 % (0-2); BLOOD GAS O2 HGB SATURATION 97 % (90-100); BLOOD GAS OXYGEN CONTENT 10.7 Vol % (12.0-20.0); BLOOD GAS PCO2 49 mmHg (38-42); BLOOD GAS PO2 148 mmHg (61-120); BLOOD GAS TOTAL HGB 7.6 G/DL (12.0-16.0); CRITICAL VALUE NO; FIO2 35 %; OXYGEN DEVICE VENTILATOR; TEMP CORR TO 98.6; VENT SETTINGS PRVC/AC
[2017-04-15 21:08] LABS: DRAW SITE RT RADIAL; NUMBER OF ARTERIAL PUNCTURES 1; STAT NO; ULNAR PULSE PRESENT
[2017-04-15] MEDS: ENOXAPARIN SODIUM 40 MG/0.4 ML SYRINGE SQ SCH (23:04)
[2017-04-15] MEDS: LACTULOSE SYRUP 20 GM/30 ML CUP PO SCH (23:17)
[2017-04-16] VITALS (20 sets, daily range): BP systolic 104–155; BP diastolic 52–82; PULSE 81–114; RESP 14; TEMP 97.6–98.5; O2SAT 97–100
[2017-04-16] MEDS: RESP: ALBUTEROL 2.5 MG/IPRATROPIUM 0.5 MG NEB (SCH) NEB ×6 (00:14→20:32)
[2017-04-16] MEDS: PROPOFOL 1000 MG/100 ML INJ 100 ML IV SCH ×6 (01:29→19:50)
[2017-04-16] MEDS: INSULIN ASPART SUPPLEMENTAL SCALE SQ SCH ×6 (03:02→23:18)
[2017-04-16] MEDS: methylPREDNISolone SOD SUCC 125 MG/2 ML VIAL IVP SCH ×3 (04:37→19:50)
[2017-04-16] MEDS: LACTULOSE SYRUP 20 GM/30 ML CUP PO SCH ×3 (04:37→18:00)
[2017-04-16] MEDS: METOCLOPRAMIDE HCL 10 MG/2 ML VIAL IV PUSH SCH ×3 (04:37→19:50)
[2017-04-16] MEDS: DILTIAZEM HCL 60 MG TAB PO SCH ×4 (04:37→23:19)
[2017-04-16 06:14] LABS: HEMATOCRIT 27.7 % (35.0-46.0); MEAN CELL VOLUME 87.5 FL (80.0-100.0); MEAN CORPUSCULAR HEMOGLOBIN 28.8 PG (27.0-34.0); MEAN CORPUSCULAR HGB CONC 32.9 % (32.0-36.0); PLATELET COUNT 130 TH/MM3 (150-450); RED BLOOD COUNT 3.17 MIL/MM3 (4.00-5.30); RED CELL DISTRIBUTION WIDTH 17.6 % (11.6-17.2); WHITE BLOOD COUNT 1.6 TH/MM3 (4.0-11.0)
[2017-04-16 06:17] LABS: HEMO FLAGS AUTO DIFF
[2017-04-16 06:36] LABS: MAGNESIUM 2.5 MG/DL (1.5-2.5); POTASSIUM 4.4 MEQ/L (3.5-5.1)
[2017-04-16 07:11] LABS: CORRECTED NUCLEATED RBC 3 /100 WBC (0-0); NEUTROPHIL # MANUAL DIFF 0.8 TH/MM3 (1.8-7.7); PLATELET ESTIMATE SMEAR LOW (NORMAL); PLATELET MORPHOLOGY NORMAL (NORMAL); POLYS (SEG NEUTROPHILS) 53 % (16-70); SCAN/DIFF FINAL DIFF MANUAL; WBC DIFF SAMPLE 100
[2017-04-16 07:12] LABS: OVALOCYTES 1+ (NORMAL)
--- NOTE | 2017-04-16 07:30 | PD.ONC.PN ---
Subjective Subjective Remarks sedated. Back on vent Objective Data Date Time Temp Pulse Resp B/P Pulse Ox O2 Delivery O2 Flow Rate FiO2 04/16/17 06:00 114 04/16/17 04:05 100 35 04/16/17 04:00 35 04/16/17 04:00 114 04/16/17 04:00 98.5 95 14 110/76 99 04/16/17 02:00 114 04/16/17 01:16 100 35 04/16/17 00:00 98.5 92 14 134/82 99 04/16/17 00:00 114 04/16/17 00:00 35 04/15/17 23:18 100 35 04/15/17 22:00 114 04/15/17 20:50 99 35 04/15/17 20:00 98.7 118 14 102/71 99 04/15/17 20:00 35 04/15/17 20:00 114 04/15/17 18:14 96 35 04/15/17 18:00 114 04/15/17 18:00 114 14 134/70 100 04/15/17 17:15 114 13 104/59 100 04/15/17 17:00 120 13 136/76 100 04/15/17 16:45 117 14 127/84 100 04/15/17 16:31 133 15 117/76 100 04/15/17 16:16 118 14 94/53 100 04/15/17 16:12 120 14 70/54 100 04/15/17 16:08 118 14 70/49 100 04/15/17 16:07 125 14 76/49 100 04/15/17 16:01 97.8 116 14 94/54 100 04/15/17 16:00 100 04/15/17 16:00 35 04/15/17 15:00 116 14 94/54 100 18 14:30 99 35 04/15/17 14:27 136 14 101/53 96 18 14:26 135 13 145/67 97 1817 14:25 115 18 153/70 98 1817 14:24 115 17 161/74 98 18/ 14:00 35 04/15/17 14:00 102 25 140/65 94 18 13:56 116 30 147/77 93 13:30 116 28 193/91 97 04/15/17 13:24 109 28 187/90 94 04/15/17 13:22 106 23 181/146 95 04/15/17 13:00 96 20 175/86 92 04/15/17 12:35 99 Nasal Cannula 4 04/15/17 12:35 99 Nasal Cannula 4.00 04/15/17 12:30 107 19 179/95 98 04/15/17 12:00 35 04/15/17 12:00 98 04/15/17 12:00 99.2 98 20 189/97 100 04/15/17 11:32 107 18 178/92 100 04/15/17 11:30 103 15 171/86 100 04/15/17 11:00 99 15 187/90 100 04/15/17 10:30 100 18 166/86 99 04/15/17 10:00 100 16 142/82 99 04/15/17 10:00 102 04/15/17 09:30 101 15 153/80 100 04/15/17 09:00 101 13 145/76 100 04/15/17 08:13 100 35 04/15/17 08:00 96 04/15/17 08:00 99.0 96 18 122/68 100 04/15/17 08:00 35 04/15/17 07:41 100 35 04/16/17 04/16/17 04/16/17 07:00 15:00 23:00 Intake Total 2000 ml Output Total 1500 ml Balance 500 ml Result Diagram: 04/16/17 0536 04/16/17 0536 Laboratory Results Laboratory Tests Test 04/15/17 04/15/17 04/16/17 13:42 20:55 05:36 White Blood Count 2.0 TH/MM3 1.6 TH/MM3 Red Blood Count 3.41 MIL/MM3 3.17 MIL/MM3 Hemoglobin 10.0 GM/DL 9.1 GM/DL Hematocrit 29.9 % 27.7 % Mean Corpuscular Volume 87.6 FL 87.5 FL Mean Corpuscular Hemoglobin 29.2 PG 28.8 PG Mean Corpuscular Hemoglobin 33.4 % 32.9 % Concent Red Cell Distribution Width 17.4 % 17.6 % Platelet Count 187 TH/MM3 130 TH/MM3 Mean Platelet Volume 9.4 FL 9.2 FL Neutrophils (%) (Auto) 80.7 % % Lymphocytes (%) (Auto) 8.9 % % Monocytes (%) (Auto) 10.3 % % Eosinophils (%) (Auto) 0.0 % % Basophils (%) (Auto) 0.1 % % Neutrophils # (Auto) 1.6 TH/MM3 TH/MM3 Lymphocytes # (Auto) 0.2 TH/MM3 TH/MM3 Monocytes # (Auto) 0.2 TH/MM3 TH/MM3 Eosinophils # (Auto) 0.0 TH/MM3 TH/MM3 Basophils # (Auto) 0.0 TH/MM3 TH/MM3 CBC Comment AUTO DIFF AUTO DIFF Differential Total Cells 100 100 Counted Neutrophils % (Manual) 75 % 53 % Band Neutrophils % 3 % Lymphocytes % 17 % 39 % Monocytes % 4 % 8 % Neutrophils # (Manual) 1.6 TH/MM3 0.8 TH/MM3 Nucleated Red Blood Cells 3 /100 WBC 3 /100 WBC Differential Comment FINAL DIFF FINAL DIFF MANUAL MANUAL Plasma Cells 1 % Platelet Estimate NORMAL LOW Platelet Morphology Comment NORMAL NORMAL Ovalocytes 2+ 1+ Stomatocytes 1+ Prothrombin Time 10.8 SEC Prothromb Time International 1.0 RATIO Ratio Activated Partial 17.8 SEC Thromboplast Time Lactic Acid Level 2.8 mmol/L 2.1 mmol/L Total Bilirubin 0.5 MG/DL Direct Bilirubin 0.2 MG/DL Indirect Bilirubin 0.3 MG/DL Aspartate Amino Transf 38 U/L (AST/SGOT) Alanine Aminotransferase 94 U/L (ALT/SGPT) Alkaline Phosphatase 51 U/L Troponin I LESS THAN 0.02 NG/ML Total Protein 6.1 GM/DL Albumin 3.0 GM/DL Lipase 132 U/L Blood Gas Puncture Site RT RADIAL Blood Gas Patient Temperature 98.6 Blood Gas HCO3 33 mmol/L Blood Gas Base Excess 8.2 mmol/L Blood Gas Oxygen Saturation 97 % Arterial Blood pH 7.44 Arterial Blood Partial 49 mmHg Pressure CO2 Arterial Blood Partial 148 mmHg Pressure O2 Arterial Blood Oxygen Content 10.7 Vol % Arterial Blood 1.7 % Carboxyhemoglobin Arterial Blood Methemoglobin 0.9 % Blood Gas Hemoglobin 7.6 G/DL Oxygen Delivery Device VENTILATOR Blood Gas Ventilator Setting PRVC/AC Blood Gas Inspired Oxygen 35 % Sodium Level 143 MEQ/L Potassium Level 4.4 MEQ/L Chloride Level 103 MEQ/L Carbon Dioxide Level 34.0 MEQ/L Anion Gap 6 MEQ/L Blood Urea Nitrogen 27 MG/DL Creatinine 0.38 MG/DL Estimat Glomerular Filtration 179 ML/MIN Rate Random Glucose 118 MG/DL Calcium Level 8.7 MG/DL Phosphorus Level 3.0 MG/DL Magnesium Level 2.5 MG/DL Total Creatine Kinase 40 U/L Administered Medications Medications (Trade) Dose Ordered Sig/Rossana Route PRN Reason Start Time Stop Time Status Last Admin Dose Admin Sodium Chloride (NS Flush) 2 ml BID IV FLUSH 04/07/17 09:00 04/15/17 19:51 Sodium Chloride (NS Flush) 2 ml UNSCH PRN IV FLUSH FLUSH AFTER USING IV ACCESS 04/07/17 01:00 04/15/17 13:12 Enoxaparin Sodium (Lovenox Inj) 40 mg Q24H SQ 04/07/17 01:00 04/15/17 23:04 Ondansetron HCl 4 mg 4 mg Q6H PRN IV NAUSEA 04/07/17 01:00 04/15/17 12:16 Cefepime HCl/ Sodium Chloride (Maxipime Inj/NS Inj) 100 ml @ 200 mls/hr Q8H IV 04/07/17 09:00 04/15/17 23:04 Famotidine (Pepcid) 20 mg BID PO 04/07/17 09:00 04/15/17 19:51 Diltiazem HCl (Cardizem) 60 mg Q6HR PO 04/07/17 06:00 04/16/17 04:37 Miscellaneous Information Patient in critical care unit? Ass... [id number] .XX 04/07/17 02:30 04/07/17 02:30 Potassium Phosphate (K-Phos) 2,000 mg Q4H PRN PO For Phosphorus < 2.5 mg/dL 04/08/17 10:45 04/10/17 12:52 Methylprednisolone Sodium Succinate (SoluMEDROL INJ) 40 mg Q8HR IVP 04/13/17 14:00 04/16/17 04:37 Docusate Sodium (Colace Liq) 100 mg Q12HR PO 04/14/17 09:00 04/15/17 19:51 Sennosides (Senna Liq) 8.8 mg BID PO 04/14/17 09:00 04/15/17 19:51 Glycerin (Glycerin Adult Supp) 2 gm BID PRN RECTAL CONSTIPATION 04/14/17 21:00 04/16/17 00:29 Insulin Detemir (Levemir Inj) 12 units Q12HR SQ 04/15/17 09:00 Hold 04/15/17 08:47 Insulin Aspart 1 1 Q4HR SQ 04/15/17 12:00 04/16/17 03:02 Sodium Chloride (NS 1000 ml Inj) 1,000 ml @ 82 mls/hr [id number] IV 04/15/17 12:45 04/15/17 23:05 Nitroglycerin (Nitroglycerin 2% Oint) 2 inch Q6H PRN TOPICAL SBP>160, DBP>90 04/15/17 13:00 04/15/17 13:50 Hydralazine HCl (Apresoline Inj) 10 mg Q1H PRN IV PUSH SBP>160, DBP>90 04/15/17 13:00 04/15/17 13:12 Labetalol HCl (Trandate Inj) 10 mg Q1H PRN IV PUSH SBP>160, DBP>90, HR>65 04/15/17 13:00 04/15/17 13:49 Morphine Sulfate (Morphine Inj) 2 mg Q3H PRN IV PUSH PAIN SCALE 6 TO 10 04/15/17 13:00 04/15/17 13:01 Prochlorperazine Edisylate (Compazine Inj) 5 mg Q6H PRN IV PUSH nausea 04/15/17 13:00 04/15/17 13:11 Metoclopramide HCl (Reglan Inj) 5 mg Q8HR IV PUSH 04/15/17 14:00 04/16/17 04:37 Chlorhexidine Gluconate 15 ml 15 ml BID@08,20 MT 04/15/17 20:00 04/15/17 19:51 Propofol 100 ml @ 0 mls/hr TITRATE IV 04/15/17 14:30 04/16/17 01:29 Phenylephrine HCl/ Dextrose (Neosynephrine Inj/D5W 500 ml Inj) 500 ml @ 0 mls/hr TITRATE IV 04/15/17 16:15 04/15/17 21:02 Lactulose (Lactulose Liq) 30 ml Q6HR PO 04/16/17 00:00 04/16/17 04:37 Polyethylene Glycol (Miralax) 17 gm BID PO 04/15/17 21:00 04/15/17 19:50 Objective Remarks GENERAL: chronically Ill patient.on vent SKIN: Warm and dry. HEAD: Normocephalic. EYES: No scleral icterus. No injection or drainage. NECK: Supple, trachea midline. No JVD or lymphadenopathy. LYMPHATIC: No adenopathy. CARDIOVASCULAR: Regular rate and rhythm without murmurs. RESPIRATORY: Breath sounds decrease both sides. GASTROINTESTINAL: Abdomen soft, nondistended. EXTREMITIES: No cyanosis, or edema. NEUROLOGICAL: sedated. Assessment/Plan Problem List: (1) SCLC (small cell lung carcinoma) Status: Chronic Plan: 04/16 was extubated yesterday. now reintubated after just 2 hrs. Had emesis. ? aspirated. Had Large BM per RN. Poor prognosis. Recommend hospice. 04/15: patient now extubated but having vomiting. will wait for PS to improve before resuming chemotherapy 04/14: Pt having low tidal volumes. No CPAP trials today. Palliative care consulted. She will not be a candidate for future chemo unless acute issues/ performance status significantly improves. 04/13: Pt did not tolerate CPAP trials today. Per RN last only 10 minutes. No chemo today. Continue IV Abx, steroids. 04/12: On Cefepime + solu-medrol. CPAP trials today. unable to resume chemo until current issues resolved 04/08/17: Continue supportive care with IV Abx, steroids. -- s/p C2 w/ carboplatin and etoposide on 04/05/17. (2) Intractable vomiting with nausea Status: Acute Plan: --check hepatic function panel --abdominal x-ray benign --patient w/ h/o hepatic mets --unclear etiology Assessment 51 y/o female with history of small cell lung cancer admitted with COPD exacerbation. Problem Qualifiers (1) SCLC (small cell lung carcinoma): Qualified Code: C34.90 - SCLC (small cell lung carcinoma), unspecified laterality Alyssa Martinez MD April 16, 2017 07:30
[2017-04-16] MEDS: RESP: BUDESONIDE 0.5 MG/2 ML NEB NEB SCH ×2 (07:35→20:32)
--- NOTE | 2017-04-16 07:58 | HHI.CCPN ---
Subjective Remarks/Hospital Course 51-year-old female with past medical history of small cell lung cancer with liver metastases diagnosed in January 2017, tobacco abuse. She has been on palliative chemotherapy since March 08. She presented to [facility] emergency department on 04/07/17 with shortness of breath and has been treated for COPD exacerbation with nebs, Solu-Medrol, cefepime and azithromycin. She was placed on BiPAP and initially had some response. However she refused BiPAP and has becoming progressively lethargic through the course of the evening. An ABG was obtained and she has acute hypercapnic respiratory failure with pH 7.12/PaCO2 116/PA O2 of 101. Her RN discussed code status with her earlier and patient stated "intubate me if I need it". Further history is limited due to patient's altered mental status secondary to hypercapnic respiratory failure. CTA 04/07 was negative for pulmonary embolism. 04/08: CPAP trials attempted patient extremely anxious, unsuccessful. Plan to to transition to Precedex infusion for CPAP trials and weaning. ABG this a.m. 7.34/63/205/34/7.9, but patient gets extremely anxious when CPAP trials were initiated. 04/09 Patient is sedated with Diprivan and intubated. Afebrile. 04/10:Afebrile. Notably anxious this afternoon. Patient placed on Precedex infusion CPAP trials initiated. 04/11: Continue attempts at CPAP trials, one Precedex unsuccessful. Patient becomes extremely anxious despite Xanax. Patient now continues on propofol sedation for mechanical ventilation synchrony. 04/12: Medications readjusted today the patient continues on CPAP trials greater than 6 hours. Sodium level was noted to continue to be elevated free water flushes added to medication regimen. Off sedation the patient continues to be a GCS of 11 T. 04/13: Lasted only 10 minutes on PSV trial today. Continues to be on propofol and fentanyl drips for vent synchrony. Tolerating tube feeding. Positive BM. 04/14: Resting in bed. Currently not tolerating PSV trials. Arousable. Moves all 4 extremities spontaneously. No bowel movement. 04/15: Seen with Dr. Zhu. No acute distress. Awake and alert and following commands. Currently afebrile. Subjective: 04/16: Attempt x-rays yesterday. Lasted 2 hours before reintubation. Intractable nausea and vomiting. CT abdomen pelvis 04/15 revealed ductal dilatation is contracted gallbladder with stone. LFTs slightly elevated. Recheck in this AM. Arousable and follows commands on the ventilator. Positive BM overnight. Objective Vital Signs Date Time Temp Pulse Resp B/P Pulse Ox O2 Delivery O2 Flow Rate FiO2 04/16/17 07:36 100 35 04/16/17 06:00 114 04/16/17 04:00 98.5 14 110/76 04/15/17 12:35 Nasal Cannula 4 Intake and Output 04/15/17 04/15/17 04/16/17 08:00 16:00 00:00 Intake Total 950 ml 1335 ml 1100 ml Output Total 550 ml 600 ml 550 ml Balance 400 ml 735 ml 550 ml Result Diagram: 04/16/17 0536 04/16/17 0536 Imaging Last Impressions Chest X-Ray 04/15/17 0600 Signed Impressions: Service Date/Time: March 03:57 - CONCLUSION: 1. No acute cardiopulmonary disease. 2. The patient remains intubated. Paul Green MD Abdomen/Pelvis CT 04/15/17 0000 Signed Impressions: Service Date/Time: March 17:45 - CONCLUSION: 1. Biliary dilatation as described above. 2. Mass is again identified laterally in the right lobe. Central mass seen previously is poorly demonstrated on today's exam because of phase of the contrast. 3. Gallstones around a contracted gallbladder. Fred Vieyra MD FACR Abdomen X-Ray 04/15/17 0000 Signed Impressions: Service Date/Time: March 13:34 - CONCLUSION: Normal examination. Tomasz New MD CT Angiography 04/07/17 0031 Signed Impressions: Service Date/Time: Friday, April 07, 2017 01:13 - CONCLUSION: 1. No pulmonary emboli. 2. Reduction in size of the mediastinal and hilar adenopathy. 3. Reduction in size of the left hepatic lobe metastasis. 4. Severe emphysematous changes. Roberth Lockett Jr., MD Objective Remarks GENERAL: 51-year-old female, critically ill currently resting in bed in no acute distress SKIN: Warm and dry. No rash HEAD: Normocephalic. EYES: Pupils equally round and reactive about 3 mm bilaterally No scleral icterus. No injection or drainage. NECK: Supple, trachea midline. No JVD or lymphadenopathy. CARDIOVASCULAR: Regular rate and rhythm , S2 no S4. Without murmurs, gallops, or rubs. RESPIRATORY: Diminished breath sounds throughout lung mathis. No wheezing appreciated. GASTROINTESTINAL: Abdomen soft, non-tender, nondistended. Active bowel sounds MUSCULOSKELETAL: No new skin peripheral edema. Neuro: Off sedation, Follows commands moves extremities 4 Date of Insertion: April 07, 2017 A/P Assessment and Plan NEURO/PSYCH: Anxiety disorder NOS Currently on propofol at 37 micrograms/kg/m and fentanyl drip as needed for sedation/analgesia while intubated RASS target -2 Daily sedation vacation RESP: Acute hypercapnic respiratory failure COPD exacerbation Severe emphysematous COPD [facility] /12/03/29 Ventilator bundle DuoNeb therapy every 4 hours with albuterol nebs every 2 hours when necessary Wean FiO2 keep sats greater or equal to 92% SBT daily as prasanna. Continue Solu-Medrol 40 mg IV every 8 hours Pulmonology following, Dr. Zhu CTA 04/07 significant/severe pulmonary emphysema, decreasing mediastinal lymphadenopathy. Decrease in size of hepatic mass Home medications are Spiriva 18 V daily Atrovent HFA 2 puffs 4 times a day PFTs 04/13 revealed FVC 1.3. FEV1 0.5. 38% reversibility with bronchodilator. Severe airway obstruction. Lasted 2 hours extubation 04/15 CV: Hypertension Dyslipidemia History of atrial fibrillation Monitor HR and BP keep MAP>65mmHg Continue Cardizem 60 mg by mouth every 6 hours /home medication Currently holding Lipitor 20 mg daily/home medication 2-D echo 02/12 revealed EF 55-60%. No regional wall motion abnormality. GI: Mild protein calorie malnutrition CT abdomen/pelvis 04/15 Revealed contracted gallbladder. Ductal dilatation biliary system/pancreas noted MRCP ordered GI consultation Jevity 1.5 65 mL per hour currently on hold per MRCP Pepcid for GI prophylaxis Colace/Senokot twice a day for bowel regimen /Renal: Monitor renal function I/O's, electrolytes replacement per protocol. ID: Continue cefepime 04/07. Completed therapy with azithromycin. Monitor for signs of infections ( Fever, WBC) blood and urine culture- NGTD HEME/ONC: Small cell lung cancer with liver metastases on palliative chemotherapy Leukopenia Normocytic anemia Hematology following, Dr. Martinez Not a candidate for chemotherapy until extubated Noted consultation a palliative care per hematology yesterday. Remains full code ENDO: Acute hyperglycemia of critical illness On Low-dose insulin sliding scale every 4 hours. 7 unit insulin scale past 24 hours. Continue Levemir but increased from 5 to 12 units twice a day today FEN: Hypernatremia - resolved Access - Right Port-A-Cath Prophylaxis - GI - Pepcid - DVT - SCD/Lovenox subcutaneous Critical Care: The total critical care time was 30 minutes. Time to perform other separately billable procedures was not included in the critical care time. . Rolando Connor MD April 16, 2017 07:57
--- NOTE | 2017-04-16 07:58 | HHI.PR ---
Subjective Remarks on the vent , sedated responding appropriately extubated yesterday had to be reintubated Objective Vital Signs Date Time Temp Pulse Resp B/P Pulse Ox O2 Delivery O2 Flow Rate FiO2 04/16/17 07:36 100 35 04/16/17 06:00 114 04/16/17 04:05 100 35 04/16/17 04:00 35 04/16/17 04:00 114 04/16/17 04:00 98.5 95 14 110/76 99 04/16/17 02:00 114 04/16/17 01:16 100 35 04/16/17 00:00 98.5 92 14 134/82 99 04/16/17 00:00 114 04/16/17 00:00 35 04/15/17 23:18 100 35 04/15/17 22:00 114 04/15/17 20:50 99 35 04/15/17 20:00 98.7 118 14 102/71 99 04/15/17 20:00 35 04/15/17 20:00 114 04/15/17 18:14 96 35 04/15/17 18:00 114 04/15/17 18:00 114 14 134/70 100 04/15/17 17:15 114 13 104/59 100 04/15/17 17:00 120 13 136/76 100 04/15/17 16:45 117 14 127/84 100 04/15/17 16:31 133 15 117/76 100 04/15/17 16:16 118 14 94/53 100 04/15/17 16:12 120 14 70/54 100 04/15/17 16:08 118 14 70/49 100 04/15/17 16:07 125 14 76/49 100 04/15/17 16:01 97.8 116 14 94/54 100 04/15/17 16:00 100 04/15/17 16:00 35 04/15/17 15:00 116 14 94/54 100 04/15/17 14:30 99 35 04/15/17 14:27 136 14 101/53 96 18 14:26 135 13 145/67 97 04/15/17 14:25 115 18 153/70 98 04/15/17 14:24 115 17 161/74 98 04/15/17 14:00 35 04/15/17 14:00 102 25 140/65 94 04/15/17 13:56 116 30 147/77 93 04/15/17 13:30 116 28 193/91 97 04/15/17 13:24 109 28 187/90 94 04/15/17 13:22 106 23 181/146 95 04/15/17 13:00 96 20 175/86 92 04/15/17 12:35 99 Nasal Cannula 4 04/15/17 12:35 99 Nasal Cannula 4.00 04/15/17 12:30 107 19 179/95 98 04/15/17 12:00 35 04/15/17 12:00 98 04/15/17 12:00 99.2 98 20 189/97 100 04/15/17 11:32 107 18 178/92 100 04/15/17 11:30 103 15 171/86 100 04/15/17 11:00 99 15 187/90 100 04/15/17 10:30 100 18 166/86 99 04/15/17 10:00 100 16 142/82 99 04/15/17 10:00 102 04/15/17 09:30 101 15 153/80 100 17 09:00 101 13 145/76 100 04/15/17 08:13 100 35 04/15/17 08:00 96 04/15/17 08:00 99.0 96 18 122/68 100 04/15/17 08:00 35 I/O 04/15/17 04/15/17 04/15/17 04/16/17 04/16/17 04/16/17 07:00 15:00 23:00 07:00 15:00 23:00 Intake Total 950 ml 1335 ml 1100 ml 2000 ml Output Total 550 ml 600 ml 550 ml 1500 ml Balance 400 ml 735 ml 550 ml 500 ml IV Total 325 ml 1094 ml 975 ml 1750 ml Tube Feeding 525 ml 241 ml Tube Irrigant 100 ml 125 ml 250 ml Output Urine Total 550 ml 600 ml 550 ml 1500 ml # Bowel Movements 0 0 0 1 Result Diagram: 04/16/1736 04/16/17535 Objective Remarks GENERAL: SKIN: Warm and dry. HEAD: Atraumatic. Normocephalic. EYES: Pupils equal and round. No scleral icterus. No injection or drainage. ENT: No nasal bleeding or discharge. Mucous membranes pink and moist. NECK: Trachea midline. No JVD. CARDIOVASCULAR: Regular rate and rhythm. RESPIRATORY: No accessory muscle use. Clear to auscultation. Breath sounds equal bilaterally. GASTROINTESTINAL: Abdomen soft, non-tender, nondistended. Hepatic and splenic margins not palpable. MUSCULOSKELETAL: Extremities without clubbing, cyanosis, or edema. No obvious deformities. NEUROLOGICAL: Awake and alert. No obvious cranial nerve deficits. Motor grossly within normal limits. Five out of 5 muscle strength in the arms and legs. Normal speech. PSYCHIATRIC: Appropriate mood and affect; insight and judgment normal. Assessment and Plan Assessment and Plan ass: On the vent respiratory failure copd lung CA PLAN VENT SUPPORT BRONCHODILATOR THERAPY will likely need tracheostomy Audra Zhu MD April 16, 2017 07:58
[2017-04-16] MEDS: MINERAL OIL LIQUID 30 ML CUP PO ONE ×2 (08:00→11:25)
[2017-04-16] MEDS ORDERED: MAGNESIUM CITRATE SOLN 300 ML BTL PO ONE (08:00)
[2017-04-16] MEDS: FAMOTIDINE 20 MG TAB PO SCH ×2 (08:22→19:34)
[2017-04-16] MEDS: SENNOSIDES SYRUP 8.8 MG/5 ML CUP PO SCH ×2 (08:22→19:33)
[2017-04-16] MEDS: SODIUM CHLORIDE 0.9% FLUSH 10 ML FLUSH IV FLUSH SCH ×2 (08:22→19:34)
[2017-04-16] MEDS: CEFEPIME INJ 1,000 MG in SODIUM CHLORIDE 0.9% INJ 100 ML IV SCH ×3 (08:22→23:20)
[2017-04-16] MEDS: DOCUSATE SODIUM 100 MG/10 ML UDC PO SCH ×2 (08:22→19:34)
[2017-04-16] MEDS: POLYETHYLENE GLYCOL 17 GM PKG PO SCH ×2 (08:22→19:34)
[2017-04-16] MEDS: CHLORHEXIDINE 0.12% (ORAL KIT) 15 ML CUP MT SCH ×2 (08:23→19:34)
--- NOTE | 2017-04-16 10:01 | PD.CONS ---
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 She recently started palliative chemotherapy with carboplatin and etoposide earlier this month. She tolerated the first couple of treatments, but developed shortness of breath and presented to the ER for further evaluation and treatment of this on 04/07/17. She was did not tolerate Bipap and required intubation with mechanical ventilation. She has been treated with nebulizer treatment, steroids, and antibiotics. Yesterday, she was extubated and developed intractable nausea and vomiting and required reintubation. She is on a bowel regimen of lactulose, miralax, reglan, colace, glycerin suppositories, senna liquid. She had a bowel movement today. Abdomen/Pelvis CT (04/15/17)----> 1. Biliary dilatation as described above. 2. Mass is again identified laterally in the right lobe. Central mass seen previously is poorly demonstrated on today' s exam because of phase of the contrast. 3. Gallstones around a contracted gallbladder. Of note, CTA (04/07/17) revealed reduction in size of the left hepatic lobe metastasis. T. Bili 0.3, AST 27, ALT 71, Alk Phosph 50 on 04/14 and these were 0.5, AST 38, ALT 94, Alk Phosph 51 yesterday. There is not a LFT for today yet. MRCP has been ordered and this is pending. GI was consulted for further evaluation. She just returned from MRCP. She is lightly sedated, but able to answer simple yes/no questions. She denies any abdominal pain. She is not currently vomiting, but OGT has been to low intermittent wall suction. PFSH Past Medical History Small cell lung cancer with liver mets, diagnosed in 01/2017 Anxiety disorder Atrial Fibrillation COPD Emphysema HTN History of kidney stones Hyperlipidemia Past Surgical History [id number]-Hfzd placement Hand surgery Tubal Ligation Coded Allergies: Valium (Verified Allergy, Severe, HIVES, 04/07/17) *MDRO Multi-Drug Resistant Organism (Verified Adverse Reaction, Unknown, ) MRSA PCR Screen POSITIVE - 03/19/2016 Medications Allergies Coded Allergies Type Severity Reaction Last Updated Verified Valium Allergy Severe HIVES 04/07/17 Yes *MDRO Multi-Drug Resistant Organism Adverse Reaction Unknown 04/07/17 Yes Active Scripts Medications Dose Route/Sig Days Date Category Dose Instructions Lipitor (Atorvastatin Calcium) 20 Mg Tab 20 Mg PO HS 02/13/17 Rx Atrovent HFA 12.9 GM Inh (Ipratropium [place]) 17 Mcg/Act Aer 2 Puff INH QID 02/13/17 Rx Spiriva Handihaler (Tiotropium Inh) 18 Mcg Cap 18 Mcg INH DAILY 02/13/17 Rx 1 capsule = 18 mcg Cardizem (Diltiazem HCl) 60 Mg Tab 60 Mg PO QID 02/13/17 Rx Family History Per review of notes, patient's mother at the age of 55 with COPD. Her father of renal cancer when he was 56 years old. Sister with COPD. Social History Former smoker. Review of Systems ROS Lightly sedated on vent. Denies abdominal pain GI Exam Vitals I&O Vital Signs Date Time Temp Pulse Resp B/P Pulse Ox O2 Delivery O2 Flow Rate FiO2 04/16/17 07:36 100 35 04/16/17 06:00 114 04/16/17 04:05 100 35 04/16/17 04:00 35 04/16/17 04:00 114 04/16/17 04:00 98.5 95 14 110/76 99 04/16/17 02:00 114 04/16/17 01:16 100 35 04/16/17 00:00 98.5 92 14 134/82 99 04/16/17 00:00 114 04/16/17 00:00 35 04/15/17 23:18 100 35 04/15/17 22:00 114 04/15/17 20:50 99 35 04/15/17 20:00 98.7 118 14 102/71 99 04/15/17 20:00 35 04/15/17 20:00 114 04/15/17 18:14 96 35 04/15/17 18:00 114 04/15/17 18:00 114 14 134/70 100 04/15/17 17:15 114 13 104/59 100 04/15/17 17:00 120 13 136/76 100 04/15/17 16:45 117 14 127/84 100 04/15/17 16:31 133 15 117/76 100 04/15/17 16:16 118 14 94/53 100 04/15/17 16:12 120 14 70/54 100 5/18/17 16:08 118 14 70/49 100 5/18/17 16:07 125 14 76/49 100 5/18/17 16:01 97.8 116 14 94/54 100 5/18/17 16:00 100 5/18/17 16:00 35 5/18/17 15:00 116 14 94/54 100 5/18/17 14:30 99 35 5/18/17 14:27 136 14 101/53 96 5/18/17 14:26 135 13 145/67 97 5/18/17 14:25 115 18 153/70 98 5/18/17 14:24 115 17 161/74 98 5/18/17 14:00 35 5/18/17 14:00 102 25 140/65 94 5/18/17 13:56 116 30 147/77 93 5/18/17 13:30 116 28 193/91 97 5/18/17 13:24 109 28 187/90 94 5/18/17 13:22 106 23 181/146 95 5/18/17 13:00 96 20 175/86 92 5/18/17 12:35 99 Nasal Cannula 4 5/18/17 12:35 99 Nasal Cannula 4.00 5/18/17 12:30 107 19 179/95 98 5/18/17 12:00 35 5/18/17 12:00 98 5/18/17 12:00 99.2 98 20 189/97 100 5/18/17 11:32 107 18 178/92 100 5/18/17 11:30 103 15 171/86 100 5/18/17 11:00 99 15 187/90 100 5/18/17 10:30 100 18 166/86 99 5/18/17 10:00 100 16 142/82 99 5/18/17 10:00 102 5/18/17 09:30 101 15 153/80 100 I/O 5/18/17 5/18/17 5/18/17 5/19/17 5/19/17 5/19/17 07:00 15:00 23:00 07:00 15:00 23:00 Intake Total 950 ml 1335 ml 1100 ml 2000 ml Output Total 550 ml 600 ml 550 ml 1500 ml Balance 400 ml 735 ml 550 ml 500 ml IV Total 325 ml 1094 ml 975 ml 1750 ml Tube Feeding 525 ml 241 ml Tube Irrigant 100 ml 125 ml 250 ml Output Urine Total 550 ml 600 ml 550 ml 1500 ml # Bowel Movements 0 0 0 1 Imaging Last Impressions Chest X-Ray 04/15/17 0600 Signed Impressions: Service Date/Time: March 03:57 - CONCLUSION: 1. No acute cardiopulmonary disease. 2. The patient remains intubated. Paul Green MD Abdomen/Pelvis CT 04/15/17 0000 Signed Impressions: Service Date/Time: March 17:45 - CONCLUSION: 1. Biliary dilatation as described above. 2. Mass is again identified laterally in the right lobe. Central mass seen previously is poorly demonstrated on today's exam because of phase of the contrast. 3. Gallstones around a contracted gallbladder. Fred Vieyra MD FACR Abdomen X-Ray 04/15/17 0000 Signed Impressions: Service Date/Time: March 13:34 - CONCLUSION: Normal examination. Tomasz New MD CT Angiography 04/07/17 0031 Signed Impressions: Service Date/Time: Friday, April 07, 2017 01:13 - CONCLUSION: 1. No pulmonary emboli. 2. Reduction in size of the mediastinal and hilar adenopathy. 3. Reduction in size of the left hepatic lobe metastasis. 4. Severe emphysematous changes. Roberth Lockett Jr., MD Laboratory Test 04/15/17 04/15/17 04/16/17 13:42 20:55 05:36 White Blood Count 2.0 TH/MM3 1.6 TH/MM3 Red Blood Count 3.41 MIL/MM3 3.17 MIL/MM3 Hemoglobin 10.0 GM/DL 9.1 GM/DL Hematocrit 29.9 % 27.7 % Mean Corpuscular Volume 87.6 FL 87.5 FL Mean Corpuscular Hemoglobin 29.2 PG 28.8 PG Mean Corpuscular Hemoglobin 33.4 % 32.9 % Concent Red Cell Distribution Width 17.4 % 17.6 % Platelet Count 187 TH/MM3 130 TH/MM3 Mean Platelet Volume 9.4 FL 9.2 FL Neutrophils (%) (Auto) 80.7 % % Lymphocytes (%) (Auto) 8.9 % % Monocytes (%) (Auto) 10.3 % % Eosinophils (%) (Auto) 0.0 % % Basophils (%) (Auto) 0.1 % % Neutrophils # (Auto) 1.6 TH/MM3 TH/MM3 Lymphocytes # (Auto) 0.2 TH/MM3 TH/MM3 Monocytes # (Auto) 0.2 TH/MM3 TH/MM3 Eosinophils # (Auto) 0.0 TH/MM3 TH/MM3 Basophils # (Auto) 0.0 TH/MM3 TH/MM3 CBC Comment AUTO DIFF AUTO DIFF Differential Total Cells 100 100 Counted Neutrophils % (Manual) 75 % 53 % Band Neutrophils % 3 % Lymphocytes % 17 % 39 % Monocytes % 4 % 8 % Neutrophils # (Manual) 1.6 TH/MM3 0.8 TH/MM3 Nucleated Red Blood Cells 3 /100 WBC 3 /100 WBC Differential Comment FINAL DIFF FINAL DIFF MANUAL MANUAL Plasma Cells 1 % Platelet Estimate NORMAL LOW Platelet Morphology Comment NORMAL NORMAL Ovalocytes 2+ 1+ Stomatocytes 1+ Prothrombin Time 10.8 SEC Prothromb Time International 1.0 RATIO Ratio Activated Partial 17.8 SEC Thromboplast Time Lactic Acid Level 2.8 mmol/L 2.1 mmol/L Total Bilirubin 0.5 MG/DL Direct Bilirubin 0.2 MG/DL Indirect Bilirubin 0.3 MG/DL Aspartate Amino Transf 38 U/L (AST/SGOT) Alanine Aminotransferase 94 U/L (ALT/SGPT) Alkaline Phosphatase 51 U/L Troponin I LESS THAN 0.02 NG/ML Total Protein 6.1 GM/DL Albumin 3.0 GM/DL Lipase 132 U/L Blood Gas Puncture Site RT RADIAL Blood Gas Patient Temperature 98.6 Blood Gas HCO3 33 mmol/L Blood Gas Base Excess 8.2 mmol/L Blood Gas Oxygen Saturation 97 % Arterial Blood pH 7.44 Arterial Blood Partial 49 mmHg Pressure CO2 Arterial Blood Partial 148 mmHg Pressure O2 Arterial Blood Oxygen Content 10.7 Vol % Arterial Blood 1.7 % Carboxyhemoglobin Arterial Blood Methemoglobin 0.9 % Blood Gas Hemoglobin 7.6 G/DL Oxygen Delivery Device VENTILATOR Blood Gas Ventilator Setting PRVC/AC Blood Gas Inspired Oxygen 35 % Sodium Level 143 MEQ/L Potassium Level 4.4 MEQ/L Chloride Level 103 MEQ/L Carbon Dioxide Level 34.0 MEQ/L Anion Gap 6 MEQ/L Blood Urea Nitrogen 27 MG/DL Creatinine 0.38 MG/DL Estimat Glomerular Filtration 179 ML/MIN Rate Random Glucose 118 MG/DL Calcium Level 8.7 MG/DL Phosphorus Level 3.0 MG/DL Magnesium Level 2.5 MG/DL Total Creatine Kinase 40 U/L Physical Examination HEENT: Normocephalic; atraumatic; no jaundice. CHEST: OETT to vent. Resp. even/unlabored. CARDIAC: ST, low 100's ABDOMEN: Soft, nondistended, NONtender; no hepatosplenomegaly; bowel sounds hypoactive. OGT to [facility] EXTREMITIES: Gen edema. SKIN: Normal; no rash; no jaundice. 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 Pt with known SCLC with metastatic disease to the liver. She is receiving palliative tx and based on CTA (04/07), she has had reduction in size of left hepatic lobe metastasis. She was extubated and started having intractable nausea and vomiting. Abdomen/Pelvis CT (04/15/17)---- > 1. Biliary dilatation as described above. 2. Mass is again identified laterally in the right lobe. Central mass seen previously is poorly demonstrated on today's exam because of phase of the contrast. 3. Gallstones around a contracted gallbladder. Of note, on bowel regimen. + BM. LFT 0.5, AST 38, ALT 94, Alk Phosph 51 yesterday. MRCP pending. Will await results of this. - Cholelithiasis with contracted gallbladder. MRCP pending. - Elevated LFTs secondary to above. LFT 0.5, AST 38, ALT 94, Alk Phosph 51 yesterday. - Pancytopenia, likely related to chemotherapy. - SCLC with metastatic disease to the liver. Dx January 2017. Recently started palliative chemotherapy with carboplatin and etoposide earlier this month. Oncology following. - Resp. Failure, COPD, Emphysema. Extubated, but required reintubation yesterday secondary to intractable nausea/vomiting. - HTN, Dysplipidemia, Atrial fibrillation. Per [facility] PLAN: - NPO - OGT to [facility] for now - Await results of MRCP - CBC, LFT in am - Cont. bowel regimen - Further recommendations to follow based on results of above - Pt seen and examined by Dr. Villanueva and myself and this note is written on his behalf Araceli Lay April 16, 2017 10:01
--- NOTE | 2017-04-16 10:18 | HHI.PR ---
Subjective Remarks Patient intubated again and sedated Unable to get any information from patient Objective Objective Results - Vital Signs Date Time Temp Pulse Resp B/P Pulse Ox O2 Delivery O2 Flow Rate FiO2 04/16/17 10:12 100 100 04/16/17 07:36 100 35 04/16/17 06:00 114 04/16/17 04:05 100 35 04/16/17 04:00 35 04/16/17 04:00 114 04/16/17 04:00 98.5 95 14 110/76 99 04/16/17 02:00 114 04/16/17 01:16 100 35 04/16/17 00:00 98.5 92 14 134/82 99 04/16/17 00:00 114 04/16/17 00:00 35 04/15/17 23:18 100 35 04/15/17 22:00 114 04/15/17 20:50 99 35 04/15/17 20:00 98.7 118 14 102/71 99 04/15/17 20:00 35 04/15/17 20:00 114 04/15/17 18:14 96 35 04/15/17 18:00 114 04/15/17 18:00 114 14 134/70 100 04/15/17 17:15 114 13 104/59 100 04/15/17 17:00 120 13 136/76 100 04/15/17 16:45 117 14 127/84 100 04/15/17 16:31 133 15 117/76 100 04/15/17 16:16 118 14 94/53 100 04/15/17 16:12 120 14 70/54 100 04/15/17 16:08 118 14 70/49 100 04/15/17 16:07 125 14 76/49 100 04/15/17 16:01 97.8 116 14 94/54 100 17 16:00 100 04/15/17 16:00 35 04/15/17 15:00 116 14 94/54 100 04/15/17 14:30 99 35 04/15/17 14:27 136 14 101/53 96 04/15/17 14:26 135 13 145/67 97 18 14:25 115 18 153/70 98 04/15/17 14:24 115 17 161/74 98 04/15/17 14:00 35 04/15/17 14:00 102 25 140/65 94 04/15/17 13:56 116 30 147/77 93 04/15/17 13:30 116 28 193/91 97 04/15/17 13:24 109 28 187/90 94 04/15/17 13:22 106 23 181/146 95 04/15/17 13:00 96 20 175/86 92 04/15/17 12:35 99 Nasal Cannula 4 04/15/17 12:35 99 Nasal Cannula 4.00 04/15/17 12:30 107 19 179/95 98 04/15/17 12:00 35 04/15/17 12:00 98 04/15/17 12:00 99.2 98 20 189/97 100 04/15/17 11:32 107 18 178/92 100 04/15/17 11:30 103 15 171/86 100 04/15/17 11:00 99 15 187/90 100 04/15/17 10:30 100 18 166/86 99 I/O 04/15/17 04/15/17 04/15/17 04/16/17 04/16/17 04/16/17 06:59 14:59 22:59 06:59 14:59 22:59 Intake Total 950 ml 1335 ml 1100 ml 2000 ml Output Total 550 ml 600 ml 550 ml 1500 ml Balance 400 ml 735 ml 550 ml 500 ml IV Total 325 ml 1094 ml 975 ml 1750 ml Tube Feeding 525 ml 241 ml Tube Irrigant 100 ml 125 ml 250 ml Output Urine Total 550 ml 600 ml 550 ml 1500 ml # Bowel Movements 0 0 0 1 Result Diagram: 04/16/17 0536 04/16/17 0536 Other Results Laboratory Tests Test 04/15/17 04/15/17 04/16/17 13:42 20:55 05:36 White Blood Count 2.0 1.6 Red Blood Count 3.41 3.17 Hemoglobin 10.0 9.1 Hematocrit 29.9 27.7 Mean Corpuscular Volume 87.6 87.5 Mean Corpuscular Hemoglobin 29.2 28.8 Mean Corpuscular Hemoglobin 33.4 32.9 Concent Red Cell Distribution Width 17.4 17.6 Platelet Count 187 130 Mean Platelet Volume 9.4 9.2 Neutrophils (%) (Auto) 80.7 Lymphocytes (%) (Auto) 8.9 Monocytes (%) (Auto) 10.3 Eosinophils (%) (Auto) 0.0 Basophils (%) (Auto) 0.1 Neutrophils # (Auto) 1.6 Lymphocytes # (Auto) 0.2 Monocytes # (Auto) 0.2 Eosinophils # (Auto) 0.0 Basophils # (Auto) 0.0 CBC Comment AUTO DIFF AUTO DIFF Differential Total Cells 100 100 Counted Neutrophils % (Manual) 75 53 Band Neutrophils % 3 Lymphocytes % 17 39 Monocytes % 4 8 Neutrophils # (Manual) 1.6 0.8 Nucleated Red Blood Cells 3 3 Differential Comment FINAL DIFF FINAL DIFF MANUAL MANUAL Plasma Cells 1 Platelet Estimate NORMAL LOW Platelet Morphology Comment NORMAL NORMAL Ovalocytes 2+ 1+ Stomatocytes 1+ Prothrombin Time 10.8 Prothromb Time International 1.0 Ratio Activated Partial 17.8 Thromboplast Time Lactic Acid Level 2.8 2.1 Total Bilirubin 0.5 Direct Bilirubin 0.2 Indirect Bilirubin 0.3 Aspartate Amino Transf 38 (AST/SGOT) Alanine Aminotransferase 94 (ALT/SGPT) Alkaline Phosphatase 51 Troponin I LESS THAN 0.02 Total Protein 6.1 Albumin 3.0 Lipase 132 Blood Gas Puncture Site RT RADIAL Blood Gas Patient Temperature 98.6 Blood Gas HCO3 33 Blood Gas Base Excess 8.2 Blood Gas Oxygen Saturation 97 Arterial Blood pH 7.44 Arterial Blood Partial 49 Pressure CO2 Arterial Blood Partial 148 Pressure O2 Arterial Blood Oxygen Content 10.7 Arterial Blood 1.7 Carboxyhemoglobin Arterial Blood Methemoglobin 0.9 Blood Gas Hemoglobin 7.6 Oxygen Delivery Device VENTILATOR Blood Gas Ventilator Setting PRVC/AC Blood Gas Inspired Oxygen 35 Sodium Level 143 Potassium Level 4.4 Chloride Level 103 Carbon Dioxide Level 34.0 Anion Gap 6 Blood Urea Nitrogen 27 Creatinine 0.38 Estimat Glomerular Filtration 179 Rate Random Glucose 118 Calcium Level 8.7 Phosphorus Level 3.0 Magnesium Level 2.5 Total Creatine Kinase 40 Physical Exam Physical Exam VITAL SIGNS: Reviewed. GENERAL: This is a 51-year-old female intubated and sedated HEENT: Within ET tube in an OG tube CARDIOVASCULAR SYSTEM: Tachycardic. S1 and S2 audible. Heart rate between 100 - 110 sinus tachycardia RESPIRATORY SYSTEM: Good air entry. There is occasional scattered wheezing. Occasional rhonchi bibasally. GASTROINTESTINAL SYSTEM: Bowel sounds are present. No tenderness, guarding or rebound. MUSCULOSKELETAL SYSTEM: Sedated NEUROLOGICAL EXAM: Sedated on vent skin, warm and dry Date of Insertion: April 07, 2017 A/P Assessment and Plan (1) Hypercapnic respiratory failure (2) Acute exacerbation of chronic obstructive pulmonary disease (COPD) (3) SCLC (small cell lung carcinoma) Plan: with liver mets (4) Hyperglycemia (5) Depression (6) A-fib (7) Hypertension Plan extubated than after 2 hour reintubated again Vent Management management as per pulmonary/critical care likely aspiration Duonebs IV steroids empiric antibiotics cultures negative oncology following, input appreciated CT PE protocol reviewed reduction in size of mediastinal and hilar adenopathy. An reduction in size of left hepatic lobe metastasis. Severe emphysematous changes. no chemotherapy plans at this time, hospice recommended Leukopenia, monitor WBC continue tube feeding Bowel regimen Anemia post hydration will monitor hx afib, continue Cardizem via OGT remains SR/ST Lovenox for DVT prophylaxis Pepcid for GI prophylaxis Palliative care following, goals remains aggressive. Input appreciated CM for dc planning, select rehab Full code condition criticle Labs reviewed D/W RN D/W palliative care food service team member hannah service department manager Sohail Sellers MD April 16, 2017 10:18
--- NOTE | 2017-04-16 11:05 | RADRPT ---
EXAM DATE/TIME: 04/16/2017 09:35 [place] COMPARISON: CT ABDOMEN & PELVIS W CONTRAST, April 15, 2017, 17:45. INDICATIONS : Cholelithiasis. MEDICAL HISTORY : Carcinoma, lung. Metastatic, liver. SURGICAL HISTORY : Tubal ligation. ENCOUNTER: Initial ACUITY: 1 day PAIN SCORE: 6/10 LOCATION: Right upper quadrant TECHNIQUE: Multiplanar, multisequence magnetic resonance imaging of the abdomen was performed. High-resolution 3D dataset was utilized to reconstruct maximum-intensity projection (MIP) images. FINDINGS: There is a tiny hepatic cyst in the dome of the liver measuring 5 mm in segment 7. In segment 6 there is a 15 mm indeterminate lesion which may reflect metastatic disease. No contrast is administered. T here is a second indeterminate lesion in segment 5 measuring 15 mm. Examination of biliary tree with multiplanar and 3-D reconstruction demonstrates no evidence of commo n duct stone. No intrahepatic or extra hepatic ductal dilatation is identified. The pancreatic duct i s unremarkable. The gallbladder demonstrates gallstones in the neck of the gallbladder. The adrenal g lands and kidneys appear normal bilaterally. No hydronephrosis or mass lesions are identified. CONCLUSION: 1. Unremarkable examination of the biliary tree. No evidence of ductal dilatation. 2. Cholelithiasis 3. Indeterminate lesions in liver as described above. Malignancy is not excluded. Administration of c ontrast would be helpful to further delineate these abnormalities Son Bryson MD on April 16, 2017 at 10:54 Board Certified Radiologist. This report was verified electronically.
--- NOTE | 2017-04-16 11:44 | HHI.HCPN ---
Reason for visit a. To assist with evaluation and management of symptoms including: shortness of breath, anxiety, pain b. To assist medical decision maker(s) with: better understanding of current medical conditions; weighing benefits/burdens of medical treatment options; making medical treatment decisions. . Subjective/Interval History Ms. Hook is a 51 year old female with stage IV small cell lung cancer who presented to [facility] ED via EMS on 04/06/2017 and was subsequently admitted with acute COPD exacerbation. She has a past medical history is significant for COPD (on supplemental oxygen and nebulizers at home), anxiety disorder, atrial fibrillation and hypertension. Ms. Hook was diagnosed with SCLC with extensive liver metastasis in January,. Follow-up for symptom management, clarification of medical treatment goals. Patient remains sedated on propofol, intubated on mechanical ventilator. FiO2 30%; Rate 15; PEEP 5; Tidal volume 700. Apparently the patient was extubated yesterday 04/15/17. She was reintubation 2 hours later secondary to intractable nausea and vomiting, concerning for possible aspiration. CT abdomen/pelvis revealed biliary dilatation, contracted gallbladder with stones. Elevated LFTs. MRCP this morning-report pending. GI consult pending. Oncology and pulmonology continue to follow. =WBC: 1.6, hemoglobin 9.1, hematocrit 27.7, platelets 130 =Sodium: 143, potassium 4.4, chloride 103, carbon dioxide 34.0, glucose 118, calcium 8.7, phosphorus 3.0, magnesium 2.5 =Lactic acid: 2.1 =BUN: 27, creatinine 0.38, GFR 179 =Total creatine kinase: 40 Palliative chemotherapy was initiated on 03/08/17; second round of chemotherapy was initiated on 04/05/17 but was not completed when the patient was admitted for management of acute COPD exacerbation. Further treatment is on hold secondary to patient's poor performance status. Dr. Martinez states the patient's overall prognosis is poor, making recommendations for hospice. . Family/friend interactions Attempted to contact patient's sister, Yessenia, via telephone. Message left on the case voicemail, awaiting return phone call. . Advance Directives Advance Directive Specifics Documented care wishes: No documented care wishes are available. . Objective Vital Signs Date Time Temp Pulse Resp B/P Pulse Ox O2 Delivery O2 Flow Rate FiO2 5/19/17 10:12 100 100 04/16/17 10:00 88 04/16/17 08:00 35 04/16/17 08:00 98.3 98 14 113/71 100 04/16/17 08:00 98 04/16/17 07:36 100 35 17 06:00 114 04/16/17 04:05 100 35 04/16/17 04:00 35 04/16/17 04:00 114 04/16/17 04:00 98.5 95 14 110/76 99 04/16/17 02:00 114 04/16/17 01:16 100 35 04/16/17 00:00 98.5 92 14 134/82 99 04/16/17 00:00 114 04/16/17 00:00 35 17 23:18 100 35 18/17 22:00 114 1817 20:50 99 35 18/17 20:00 98.7 118 14 102/71 99 1817 20:00 35 17 20:00 114 1817 18:14 96 35 18/17 18:00 114 18/17 18:00 114 14 134/70 100 18/17 17:15 114 13 104/59 100 18/17 17:00 120 13 136/76 100 18/17 16:45 117 14 127/84 100 18/17 16:31 133 15 117/76 100 18/17 16:16 118 14 94/53 100 18/17 16:12 120 14 70/54 100 18/17 16:08 118 14 70/49 100 18/17 16:07 125 14 76/49 100 18/17 16:01 97.8 116 14 94/54 100 18/17 16:00 100 18/17 16:00 35 18/17 15:00 116 14 94/54 100 18/17 14:30 99 35 18/17 14:27 136 14 101/53 96 18/17 14:26 135 13 145/67 97 /18/17 14:25 115 18 153/70 98 18/17 14:24 115 17 161/74 98 18/17 14:00 35 5/18/17 14:00 102 25 140/65 94 04/15/17 13:56 116 30 147/77 93 04/15/17 13:30 116 28 193/91 97 04/15/17 13:24 109 28 187/90 94 04/15/17 13:22 106 23 181/146 95 04/15/17 13:00 96 20 175/86 92 04/15/17 12:35 99 Nasal Cannula 4 04/15/17 12:35 99 Nasal Cannula 4.00 04/15/17 12:30 107 19 179/95 98 04/15/17 12:00 35 04/15/17 12:00 98 04/15/17 12:00 99.2 98 20 189/97 100 04/15/17 11:32 107 18 178/92 100 04/15/17 11:30 103 15 171/86 100 Intake & Output 04/16/17 04/16/17 06:59 18:59 Intake Total 3100 ml Output Total 2050 ml Balance 1050 ml IV Total 2725 ml Tube Irrigant 375 ml Output Urine Total 2050 ml # Bowel Movements 1 . Physical Exam CONSTITUTIONAL/GENERAL: This is an adequately nourished patient currently sedated and intubated on mechanical ventilator TUBES/LINES/DRAINS: [id number] accessed, OGT, ETT, PIV 1, Reddy, soft restraints, SCDs SKIN: No jaundice, rashes, or lesions. Ecchymoses on upper extremities. No wounds seen anteriorly. Skin temperature appropriate. Not diaphoretic. HEAD: Atraumatic. Normocephalic. EYES: Pupils equal and round and reactive. No scleral icterus. No injection or drainage. Fundi not examined. ENT: ETT and OGT noted. Nose without bleeding or purulent drainage. NECK: Trachea midline. Supple, nontender. No palpable thyroid enlargement or nodularity. CARDIOVASCULAR: Regular rate and rhythm without murmurs, gallops, or rubs. No JVD. Peripheral pulses symmetric. RESPIRATORY/CHEST: Intubated on mechanical ventilator. Breath sounds diminished bilaterally. No wheezes, rales, or rhonchi. GASTROINTESTINAL: Abdomen firm, nontender. Bowel sounds present. OGT in place, TF on hold. GENITOURINARY: Without palpable bladder distension. Reddy catheter in place. MUSCULOSKELETAL: Extremities without clubbing, cyanosis. LYMPHATICS: No palpable cervical or supraclavicular adenopathy. NEUROLOGICAL: Sedated on Diprivan and PRN Fentanyl available PSYCHIATRIC: Unable to assess given patient's current clinical condition and sedation. . Diagnostic Tests Laboratory Laboratory Tests Test 04/14/17 04/15/17 04/15/17 04/15/17 05:15 05:50 13:42 20:55 White Blood Count 2.4 TH/MM3 1.2 TH/MM3 2.0 TH/MM3 (4.0-11.0) (4.0-11.0) (4.0-11.0) Red Blood Count 2.97 MIL/MM3 2.81 MIL/MM3 3.41 MIL/MM3 (4.00-5.30) (4.00-5.30) (4.00-5.30) Hemoglobin 8.6 GM/DL 8.2 GM/DL 10.0 GM/DL (11.6-15.3) (11.6-15.3) (11.6-15.3) Hematocrit 26.2 % 24.4 % 29.9 % (35.0-46.0) (35.0-46.0) (35.0-46.0) Mean Corpuscular Volume 88.4 FL 86.8 FL 87.6 FL (80.0-100.0) (80.0-100.0) (80.0-100.0) Mean Corpuscular Hemoglobin 29.1 PG 29.0 PG 29.2 PG (27.0-34.0) (27.0-34.0) (27.0-34.0) Mean Corpuscular Hemoglobin 32.9 % 33.4 % 33.4 % Concent (32.0-36.0) (32.0-36.0) (32.0-36.0) Red Cell Distribution Width 17.1 % 17.5 % 17.4 % (11.6-17.2) (11.6-17.2) (11.6-17.2) Platelet Count 182 TH/MM3 175 TH/MM3 187 TH/MM3 (150-450) (150-450) (150-450) Mean Platelet Volume 9.8 FL 9.2 FL 9.4 FL (7.0-11.0) (7.0-11.0) (7.0-11.0) Neutrophils (%) (Auto) 82.6 % 80.7 % (16.0-70.0) (16.0-70.0) Lymphocytes (%) (Auto) 8.9 % 8.9 % (9.0-44.0) (9.0-44.0) Monocytes (%) (Auto) 6.6 % (0.0-8.0) 10.3 % (0.0-8.0) Eosinophils (%) (Auto) 0.0 % (0.0-4.0) 0.0 % (0.0-4.0) Basophils (%) (Auto) 1.9 % (0.0-2.0) 0.1 % (0.0-2.0) Neutrophils # (Auto) 2.0 TH/MM3 1.6 TH/MM3 (1.8-7.7) (1.8-7.7) Lymphocytes # (Auto) 0.2 TH/MM3 0.2 TH/MM3 (1.0-4.8) (1.0-4.8) Monocytes # (Auto) 0.2 TH/MM3 0.2 TH/MM3 (0-0.9) (0-0.9) Eosinophils # (Auto) 0.0 TH/MM3 0.0 TH/MM3 (0-0.4) (0-0.4) Basophils # (Auto) 0.0 TH/MM3 0.0 TH/MM3 (0-0.2) (0-0.2) CBC Comment AUTO DIFF AUTO DIFF Differential Comment AUTO DIFF FINAL DIFF CONFIRMED MANUAL Ovalocytes 1+ (NORMAL) 2+ (NORMAL) Sodium Level 141 MEQ/L 144 MEQ/L (136-145) (136-145) Potassium Level 4.4 MEQ/L 4.4 MEQ/L (3.5-5.1) (3.5-5.1) Chloride Level 104 MEQ/L 103 MEQ/L (98-107) (98-107) Carbon Dioxide Level 33.4 MEQ/L 35.0 MEQ/L (21.0-32.0) (21.0-32.0) Anion Gap 4 MEQ/L (5-15) 6 MEQ/L (5-15) Blood Urea Nitrogen 30 MG/DL (7-18) 33 MG/DL (7-18) Creatinine 0.44 MG/DL 0.63 MG/DL (0.50-1.00) (0.50-1.00) Estimat Glomerular Filtration 151 ML/MIN 100 ML/MIN Rate (>89) (>89) Random Glucose 226 MG/DL 281 MG/DL (74-106) (74-106) Calcium Level 8.5 MG/DL 8.3 MG/DL (8.5-10.1) (8.5-10.1) Phosphorus Level 2.7 MG/DL (2.5-4.9) Magnesium Level 2.3 MG/DL (1.5-2.5) Total Bilirubin 0.3 MG/DL 0.5 MG/DL (0.2-1.0) (0.2-1.0) Aspartate Amino Transf 27 U/L (15-37) 38 U/L (15-37) (AST/SGOT) Alanine Aminotransferase 71 U/L (10-53) 94 U/L (10-53) (ALT/SGPT) Alkaline Phosphatase 50 U/L (45-117) 51 U/L (45-117) Total Protein 5.5 GM/DL 6.1 GM/DL (6.4-8.2) (6.4-8.2) Albumin 2.7 GM/DL 3.0 GM/DL (3.4-5.0) (3.4-5.0) Differential Total Cells 100 Counted Neutrophils % (Manual) 75 % (16-70) Band Neutrophils % 3 % (0-6) Lymphocytes % 17 % (9-44) Monocytes % 4 % (0-8) Neutrophils # (Manual) 1.6 TH/MM3 (1.8-7.7) Nucleated Red Blood Cells 3 /100 WBC (0-0) Plasma Cells 1 % (0-0) Platelet Estimate NORMAL (NORMAL) Platelet Morphology Comment NORMAL (NORMAL) Stomatocytes 1+ (NORMAL) Prothrombin Time 10.8 SEC (9.8-11.6) Prothromb Time International 1.0 RATIO Ratio Activated Partial 17.8 SEC Thromboplast Time (24.3-30.1) Lactic Acid Level 2.8 mmol/L (0.4-2.0) Direct Bilirubin 0.2 MG/DL (0.0-0.2) Indirect Bilirubin 0.3 MG/DL (0.0-0.8) Troponin I LESS THAN 0.02 NG/ML (0.02-0.05) Lipase 132 U/L (73-393) Blood Gas Puncture Site RT RADIAL Blood Gas Patient Temperature 98.6 Blood Gas HCO3 33 mmol/L (22-26) Blood Gas Base Excess 8.2 mmol/L (-2-2) Blood Gas Oxygen Saturation 97 % (90-100) Arterial Blood pH 7.44 (7.380-7.420) Arterial Blood Partial 49 mmHg (38-42) Pressure CO2 Arterial Blood Partial 148 mmHg Pressure O2 (61-120) Arterial Blood Oxygen Content 10.7 Vol % (12.0-20.0) Arterial Blood 1.7 % (0-4) Carboxyhemoglobin Arterial Blood Methemoglobin 0.9 % (0-2) Blood Gas Hemoglobin 7.6 G/DL (12.0-16.0) Oxygen Delivery Device VENTILATOR Blood Gas Ventilator Setting [facility]/AC Blood Gas Inspired Oxygen 35 % Test 04/16/17 05:36 White Blood Count 1.6 TH/MM3 (4.0-11.0) Red Blood Count 3.17 MIL/MM3 (4.00-5.30) Hemoglobin 9.1 GM/DL (11.6-15.3) Hematocrit 27.7 % (35.0-46.0) Mean Corpuscular Volume 87.5 FL (80.0-100.0) Mean Corpuscular Hemoglobin 28.8 PG (27.0-34.0) Mean Corpuscular Hemoglobin 32.9 % Concent (32.0-36.0) Red Cell Distribution Width 17.6 % (11.6-17.2) Platelet Count 130 TH/MM3 (150-450) Mean Platelet Volume 9.2 FL (7.0-11.0) Neutrophils (%) (Auto) % (16.0-70.0) Lymphocytes (%) (Auto) % (9.0-44.0) Monocytes (%) (Auto) % (0.0-8.0) Eosinophils (%) (Auto) % (0.0-4.0) Basophils (%) (Auto) % (0.0-2.0) Neutrophils # (Auto) TH/MM3 (1.8-7.7) Lymphocytes # (Auto) TH/MM3 (1.0-4.8) Monocytes # (Auto) TH/MM3 (0-0.9) Eosinophils # (Auto) TH/MM3 (0-0.4) Basophils # (Auto) TH/MM3 (0-0.2) CBC Comment AUTO DIFF Differential Total Cells 100 Counted Neutrophils % (Manual) 53 % (16-70) Lymphocytes % 39 % (9-44) Monocytes % 8 % (0-8) Neutrophils # (Manual) 0.8 TH/MM3 (1.8-7.7) Nucleated Red Blood Cells 3 /100 WBC (0-0) Differential Comment FINAL DIFF MANUAL Platelet Estimate LOW (NORMAL) Platelet Morphology Comment NORMAL (NORMAL) Ovalocytes 1+ (NORMAL) Sodium Level 143 MEQ/L (136-145) Potassium Level 4.4 MEQ/L (3.5-5.1) Chloride Level 103 MEQ/L (98-107) Carbon Dioxide Level 34.0 MEQ/L (21.0-32.0) Anion Gap 6 MEQ/L (5-15) Blood Urea Nitrogen 27 MG/DL (7-18) Creatinine 0.38 MG/DL (0.50-1.00) Estimat Glomerular Filtration 179 ML/MIN Rate (>89) Random Glucose 118 MG/DL (74-106) Lactic Acid Level 2.1 mmol/L (0.4-2.0) Calcium Level 8.7 MG/DL (8.5-10.1) Phosphorus Level 3.0 MG/DL (2.5-4.9) Magnesium Level 2.5 MG/DL (1.5-2.5) Total Creatine Kinase 40 U/L (26-192) . Result Diagram: 04/16/17 0536 04/16/17 0536 Imaging Last 72 hours Impressions Cholangiopancreatography MRI 04/16/17 0000 Signed Impressions: Service Date/Time: Sunday, April 16, 2017 09:35 - CONCLUSION: 1. Unremarkable examination of the biliary tree. No evidence of ductal dilatation. 2. Cholelithiasis 3. Indeterminate lesions in liver as described above. Malignancy is not excluded. Administration of contrast would be helpful to further delineate these abnormalities Son Bryson MD Chest X-Ray 04/15/17 0600 Signed Impressions: Service Date/Time: March 03:57 - CONCLUSION: 1. No acute cardiopulmonary disease. 2. The patient remains intubated. Paul Green MD Chest X-Ray 04/15/17 0000 Signed Impressions: Service Date/Time: March 14:31 - CONCLUSION: Hyperexpansion consistent with COPD. Catheters are all in excellent position Tomasz New MD Abdomen/Pelvis CT 04/15/17 0000 Signed Impressions: Service Date/Time: March 17:45 - CONCLUSION: 1. Biliary dilatation as described above. 2. Mass is again identified laterally in the right lobe. Central mass seen previously is poorly demonstrated on today's exam because of phase of the contrast. 3. Gallstones around a contracted gallbladder. Fred Vieyra MD FACR Abdomen X-Ray 04/15/17 0000 Signed Impressions: Service Date/Time: March 13:34 - CONCLUSION: Normal examination. Tomasz New MD Chest X-Ray 04/14/17 0600 Signed Impressions: Service Date/Time: Friday, April 14, 2017 04:01 - CONCLUSION: 1. The patient remains intubated. 2. The lungs remain clear. Paul Green MD . Procedures 04/08/2017: Endotracheal intubation for acute hypercapnic respiratory failure . Assessment and Plan Disease Oriented Problem List: (1) Chronic obstructive pulmonary disease (2) SCLC (small cell lung carcinoma) (3) Atrial fibrillation (4) Anxiety (5) Hypertension (6) Metastases to the liver Symptom Scale: (1) Anxiety Comment: History of underlying anxiety disorder, likely exacerbated secondary to patient's newly diagnosed metastatic small cell lung cancer and acute COPD exacerbation. . (2) Shortness of breath Comment: Patient remains intubated on mechanical ventilator, unable to tolerate CPAP trials. . (3) Pain Comment: No nonverbal signs are symptoms of pain are observed on exam or reported by nursing staff. Possible causes of pain may include SMLC stents of metastatic disease to the liver, dyspnea, invasive lines, immobility, bedbound status, Reddy catheter etc. . Pertinent Non-Medical Issues Psychosocial: Patient is originally from [facility]. She has 2 sisters and one brother with whom she is very close, all live locally. Patient's passed with you years ago. The patient's daughter, Gabby, states they had not been together in 15 years but he was the love of her mother's life. She states her mother's health declined after his . She has 4 adult children (Vesta, Elva, Gabby and Wolf) between the ages of 23 and 31 years of age. Spiritual: Hoahaoism allison Legal: Per [place] statutes, in the absence of written advanced directives healthcare proxy decision-making falls to the majority of the patient's for adult children. In reviewing notes, the patient previously verbalized that she wanted her "sister" to act in the role of the health care surrogate decision maker. However, the sister should she was referring to was not specified and the legal document was not completed. Ethical issues impacting care: No known ethical issues impacting care at this time . Important Contacts Yessenia Prasad, sister: [phone] Parul Lemusct, sister: Vesta Hook, daughter: [phone] Gabby Rogers, daughter: [phone] Elva Hook, daughter: [phone] Wolf Fonseca, son: No phone available . Prognosis Patient is a 51-year-old female with SCLC and extensive metastatic disease to the liver in January,. Patient also as advanced COPD. She was started on palliative chemotherapy in 02/2017; patient tolerated chemotherapy well and it appeared to be effective. Currently hospitalized with an acute COPD exacerbation. Patient remains sedated and intubated on mechanical ventilator, unable to tolerate CPAP trials. Goals remain aggressive, however patient's overall prognosis is poor. . Code Status: Full Code Plan * FULL CODE * Decision-making: Per [place] statutes, in the absence of written advanced directives healthcare proxy decision-making falls to the majority of the patient 's for adult children. In reviewing notes, the patient previously verbalized that she wanted her "sister" to act in the role of the health care surrogate decision maker. Unfortunately the patient cannot specify which sister she was referring to at that time, and the legal document was not completed. * Goals: Goals remain aggressive at this time. * Ms. Hook was diagnosed with SCLC with extensive liver metastasis in January,. Palliative chemotherapy was initiated on 03/08/17; second round of chemotherapy was initiated on 04/05/17 but was not completed when the patient was admitted for management of acute COPD exacerbation. Further treatment is on hold secondary to patient's poor performance status. Dr. Martinez states the patient's overall prognosis is poor, making recommendations for hospice. * Symptom managementpain: Patient is currently sedated with propofol and fentanyl PRN. No nonverbal signs are symptoms of pain are observed on exam or reported by nursing staff. Possible causes of pain may include SCLC with extensive metastatic disease stents the liver, dyspnea, invasive lines, nausea/vomiting, immobility, bedbound status, Reddy catheter etc. Will continue to monitor; no recommendations at this time. * Symptom managementdyspnea: Patient remains intubated on mechanical ventilator secondary to acute hypercapnic respiratory failure. She was extubated for approximately 2 hours yesterday but had to be reintubated secondary to intractable nausea and vomiting. Patient was diagnosed with SCLC with extensive metastatic disease to the liver in January,. She follows Dr. Martinez. Palliative chemotherapy was initiated on 03/08/17; second round of chemotherapy was initiated on 04/05/17 but was not completed when the patient was admitted for management of acute COPD exacerbation. * Symptom managementanxiety: History of underlying anxiety disorder, likely exacerbated secondary to patient's newly diagnosed metastatic small cell lung cancer and acute COPD exacerbation. Currently sedated on Diprivan and Fentanyl. * Attempted to contact patient's sister, Yessenia, via telephone. Message left on the case voicemail, awaiting return phone call. * Discussed with patient's nurse, Estefanía. Patient hospital was also discussed with Margo Wan, Oncology PA. * Palliative care will continue to follow this patient throughout her hospitalization to establish trust, assist with symptom management and clarification of medical treatment goals. . Attestation To help prompt me to consider important information that might be impacting today's encounter and assessment, information from prior notes written by myself or my colleagues may have been "brought forward" into today's note. My signature on this note, however, is an attestation that I personally performed the exam, history, and/or decision-making noted today, and, unless otherwise indicated, the interactions with patient, family, and staff as well as the review of records all occurred today. I also attest that the listed assessment and stated plan reflect my best clinical judgment today based on the combination of historical information, prior notes, and today's exam/ interactions. When time spent is documented, it refers only to time spent today by the signer, or if indicated, combined time spent today by collaborating physician/nurse practitioner. . Freda Nathan April 16, 2017 11:44
[2017-04-16 12:40] LABS: INDIRECT BILIRUBIN 0.3 MG/DL (0.0-0.8); TOTAL BILIRUBIN ADULT 0.4 MG/DL (0.2-1.0)
[2017-04-16] MEDS: SODIUM CHLOR 0.9% 1000 ML INJ 1,000 ML IV SCH ×2 (14:00→23:20)
--- NOTE | 2017-04-16 17:19 | HHI.HCPN ---
Palliative care spoke with patient to discuss designation of health care surrogate. Patient was able to follow simple commands. When asked if she had a daughter named "Susanne", she shook her head no. When asked if she had a daughter named "Vesta", she nodded to indicate yes. When asked if she wanted her children to act as her health care decision makers in the event she was unable to do so, the patient shook her head indicating no. She did so again when she was asked if she wanted her brother to act in this role. Patient nodded when asked if she wanted her sister to be designated as the health care surrogate. Patient has 2 sisters, Parul and Yessenia. When asked if she wanted her sister (Parul) to be the HCS, the patient shook her head no. When asked if she wanted her sister (Yessenia) to act in this role, the patient nodded yes. Palliative care social service agency director (Savannah Lockett) and patient's nurse (Estefanía) were also present. HCS forms were verbally completed and witnessed Palliative Care SCREEN PRINTING CLOTH SPREADER, Palliative Care social service agency director and patient nurse. . Freda Nathan April 16, 2017 17:19
[2017-04-16] MEDS: ENOXAPARIN SODIUM 40 MG/0.4 ML SYRINGE SQ SCH (23:20)
[2017-04-17] VITALS (48 sets, daily range): BP systolic 110–226; BP diastolic 72–109; PULSE 78–131; RESP 9–31; TEMP 96.9–98.3; O2SAT 97–100
[2017-04-17] MEDS: RESP: ALBUTEROL 2.5 MG/IPRATROPIUM 0.5 MG NEB (SCH) NEB ×7 (00:19→23:55)
[2017-04-17] MEDS: PROPOFOL 1000 MG/100 ML INJ 100 ML IV SCH ×6 (00:34→22:33)
[2017-04-17] MEDS: INSULIN ASPART SUPPLEMENTAL SCALE SQ SCH ×6 (03:08→23:39)
[2017-04-17] MEDS: DILTIAZEM HCL 60 MG TAB PO SCH ×4 (04:21→23:38)
[2017-04-17] MEDS: methylPREDNISolone SOD SUCC 125 MG/2 ML VIAL IVP SCH ×3 (04:22→20:23)
[2017-04-17] MEDS: METOCLOPRAMIDE HCL 10 MG/2 ML VIAL IV PUSH SCH ×3 (04:22→20:22)
--- NOTE | 2017-04-17 05:50 | RADRPT ---
EXAM DATE/TIME: 04/17/2017 03:51 [facility] COMPARISON: No previous studies available for comparison. INDICATIONS : Shortness of breath, possible pulmonary disease. MEDICAL HISTORY : Carcinoma, lung. Hypertension Chronic obstructive pulmonary disease. SURGICAL HISTORY : Tubal ligation. ENCOUNTER: Subsequent ACUITY: 1 week PAIN SCORE: Non-responsive. LOCATION: Bilateral chest FINDINGS: A single view of the chest demonstrates [id number] in superior vena cava. Endotracheal tube in sat isfactory position. NG enters stomach. No focal consolidation or effusion. No pneumothorax. CONCLUSION: 1. Support apparatus in satisfactory position. No new infiltrate or effusion. Michael Bowen MD on April 17, 2017 at 5:46 Board Certified Radiologist. This report was verified electronically.
[2017-04-17] MEDS: LACTULOSE SYRUP 20 GM/30 ML CUP PO SCH ×4 (06:00→23:38)
[2017-04-17 06:12] LABS: ALT (GPT) 95 U/L (10-53); ANION GAP 7 MEQ/L (5-15); AST (GOT) 18 U/L (15-37); BICARBONATE 31.7 MEQ/L (21.0-32.0); CHLORIDE 103 MEQ/L (98-107); GLOMERULAR FILTRATION RATE 179 ML/MIN (>89); MAGNESIUM 2.8 MG/DL (1.5-2.5); POTASSIUM 4.3 MEQ/L (3.5-5.1); SODIUM (NA) 142 MEQ/L (136-145)
[2017-04-17 06:14] LABS: ALKALINE PHOSPHATASE 51 U/L (45-117); TOTAL BILIRUBIN ADULT 0.4 MG/DL (0.2-1.0)
[2017-04-17 06:21] LABS: AUTOMATED NEUTROPHIL # 0.9 TH/MM3 (1.8-7.7); BASOPHIL % 0.1 % (0.0-2.0); BLOOD UREA NITROGEN 18 MG/DL (7-18); EOSINOPHIL % 0.1 % (0.0-4.0); HEMATOCRIT 27.5 % (35.0-46.0); HEMO FLAGS AUTO DIFF; LYMPH % 25.5 % (9.0-44.0); LYMPHOCYTE # 0.4 TH/MM3 (1.0-4.8); MEAN CELL VOLUME 86.7 FL (80.0-100.0); MEAN CORPUSCULAR HEMOGLOBIN 28.9 PG (27.0-34.0); MEAN CORPUSCULAR HGB CONC 33.3 % (32.0-36.0); MONO % 15.7 % (0.0-8.0); NEUT % 58.6 % (16.0-70.0); PLATELET COUNT 88 TH/MM3 (150-450); RED BLOOD COUNT 3.17 MIL/MM3 (4.00-5.30); RED CELL DISTRIBUTION WIDTH 17.3 % (11.6-17.2); WHITE BLOOD COUNT 1.6 TH/MM3 (4.0-11.0)
[2017-04-17] MEDS: RESP: BUDESONIDE 0.5 MG/2 ML NEB NEB SCH ×2 (07:23→23:53)
[2017-04-17] MEDS: SENNOSIDES SYRUP 8.8 MG/5 ML CUP PO SCH ×2 (08:17→20:21)
[2017-04-17] MEDS: DOCUSATE SODIUM 100 MG/10 ML UDC PO SCH ×2 (08:18→20:20)
[2017-04-17] MEDS: FAMOTIDINE 20 MG TAB PO SCH ×2 (08:18→20:21)
[2017-04-17] MEDS: CEFEPIME INJ 1,000 MG in SODIUM CHLORIDE 0.9% INJ 100 ML IV SCH ×3 (08:18→23:38)
[2017-04-17] MEDS: CHLORHEXIDINE 0.12% (ORAL KIT) 15 ML CUP MT SCH ×2 (08:18→20:19)
[2017-04-17] MEDS: POLYETHYLENE GLYCOL 17 GM PKG PO SCH ×2 (08:18→20:20)
[2017-04-17] MEDS: SODIUM CHLORIDE 0.9% FLUSH 10 ML FLUSH IV FLUSH SCH ×2 (08:19→20:20)
[2017-04-17] MEDS ORDERED: DEXMEDETOMIDINE INJ 200 MCG in SODIUM CHLORIDE 0.9% INJ 50 ML IV SCH (10:00)
[2017-04-17 10:10] LABS: BANDS 23 % (0-6); CORRECTED NUCLEATED RBC 5 /100 WBC (0-0); POLYS (SEG NEUTROPHILS) 42 % (16-70); WBC DIFF SAMPLE 100
[2017-04-17 10:11] LABS: ACANTHOCYTES OCC (NORMAL); OVALOCYTES 1+ (NORMAL); PLATELET ESTIMATE SMEAR LOW (NORMAL); PLATELET MORPHOLOGY NORMAL (NORMAL); SCAN/DIFF FINAL DIFF MANUAL
--- NOTE | 2017-04-17 10:40 | HHI.PR ---
Subjective Remarks Patient intubated again and sedated Unable to get any information from patient Objective Objective Results - Vital Signs Date Time Temp Pulse Resp B/P Pulse Ox O2 Delivery O2 Flow Rate FiO2 04/17/17 10:00 100 30 04/17/17 08:00 90 04/17/17 08:00 96.9 90 14 144/84 99 04/17/17 08:00 30 04/17/17 07:23 100 30 04/17/17 06:00 81 04/17/17 04:00 30 04/17/17 04:00 98.3 88 14 141/82 100 04/17/17 04:00 81 04/17/17 03:53 100 30 04/17/17 02:00 81 04/17/17 01:25 99 30 04/17/17 00:00 97.9 80 14 143/80 100 04/17/17 00:00 30 04/17/17 00:00 81 04/16/17 22:08 99 30 04/16/17 22:00 81 04/16/17 20:33 100 30 04/16/17 20:00 30 04/16/17 20:00 98.3 83 14 123/81 100 04/16/17 20:00 88 04/16/17 18:00 88 04/16/17 16:00 97.6 99 14 104/65 100 04/16/17 16:00 30 04/16/17 16:00 99 04/16/17 14:51 100 30 04/16/17 14:00 90 04/16/17 12:00 96 04/16/17 12:00 35 04/16/17 12:00 98.3 96 14 155/52 99 04/16/17 11:19 97 30 I/O 04/16/17 04/16/17 04/16/17 04/17/17 04/17/17 04/17/17 07:00 15:00 23:00 07:00 15:00 23:00 Intake Total 2000 ml 1092 ml 900 ml 950 ml Output Total 1500 ml 900 ml 775 ml 900 ml Balance 500 ml 192 ml 125 ml 50 ml IV Total 1750 ml 992 ml 775 ml 825 ml Tube Irrigant 250 ml 100 ml 125 ml 125 ml Output Urine Total 1500 ml 850 ml 725 ml 850 ml Gastric Drainage Total 50 ml 50 ml 50 ml # Bowel Movements 1 2 1 1 Result Diagram: 04/17/17 0519 04/17/17 0519 Other Results Laboratory Tests Test 04/17/17 05:19 White Blood Count 1.6 Red Blood Count 3.17 Hemoglobin 9.2 Hematocrit 27.5 Mean Corpuscular Volume 86.7 Mean Corpuscular Hemoglobin 28.9 Mean Corpuscular Hemoglobin 33.3 Concent Red Cell Distribution Width 17.3 Platelet Count 88 Mean Platelet Volume 8.7 Neutrophils (%) (Auto) 58.6 Lymphocytes (%) (Auto) 25.5 Monocytes (%) (Auto) 15.7 Eosinophils (%) (Auto) 0.1 Basophils (%) (Auto) 0.1 Neutrophils # (Auto) 0.9 Lymphocytes # (Auto) 0.4 Monocytes # (Auto) 0.3 Eosinophils # (Auto) 0.0 Basophils # (Auto) 0.0 CBC Comment AUTO DIFF Differential Total Cells 100 Counted Neutrophils % (Manual) 42 Band Neutrophils % 23 Lymphocytes % 24 Monocytes % 11 Neutrophils # (Manual) 1.0 Nucleated Red Blood Cells 5 Differential Comment FINAL DIFF MANUAL Platelet Estimate LOW Platelet Morphology Comment NORMAL Ovalocytes 1+ Acanthocytes OCC Sodium Level 142 Potassium Level 4.3 Chloride Level 103 Carbon Dioxide Level 31.7 Anion Gap 7 Blood Urea Nitrogen 18 Creatinine 0.38 Estimat Glomerular Filtration 179 Rate Random Glucose 159 Calcium Level 8.2 Phosphorus Level 3.2 Magnesium Level 2.8 Total Bilirubin 0.4 Aspartate Amino Transf 18 (AST/SGOT) Alanine Aminotransferase 95 (ALT/SGPT) Alkaline Phosphatase 51 Total Protein 5.4 Albumin 2.6 Physical Exam Physical Exam VITAL SIGNS: Reviewed. GENERAL: This is a 51-year-old female intubated and sedated HEENT: Within ET tube in an OG tube CARDIOVASCULAR SYSTEM: Tachycardic. S1 and S2 audible. Heart rate between 100 - 110 sinus tachycardia RESPIRATORY SYSTEM: Good air entry. There is occasional scattered wheezing. Occasional rhonchi bibasally. GASTROINTESTINAL SYSTEM: Bowel sounds are present. No tenderness, guarding or rebound. MUSCULOSKELETAL SYSTEM: Sedated NEUROLOGICAL EXAM: Sedated on vent skin, warm and dry Date of Insertion: April 07, 2017 A/P Assessment and Plan (1) Hypercapnic respiratory failure (2) Acute exacerbation of chronic obstructive pulmonary disease (COPD) (3) SCLC (small cell lung carcinoma) Plan: with liver mets (4) Hyperglycemia (5) Depression (6) A-fib (7) Hypertension Plan extubated than after 2 hour reintubated again Vent Management management as per pulmonary/critical care hannah public affairs specialist plan for extubation today likely aspiration pna Duonebs IV steroids empiric antibiotics cultures negative oncology following, input appreciated CT PE protocol reviewed reduction in size of mediastinal and hilar adenopathy. An reduction in size of left hepatic lobe metastasis. Severe emphysematous changes. no chemotherapy plans at this time, hospice recommended Leukopenia, monitor WBC continue tube feeding Bowel regimen Anemia post hydration will monitor,stable hx afib, continue Cardizem via OGT remains SR/ST Lovenox for DVT prophylaxis Pepcid for GI prophylaxis Palliative care following, goals remains aggressive. Input appreciated CM for dc planning, select rehab Full code condition criticle Labs reviewed D/W RN hannah public affairs specialist Sohail Sellers MD April 17, 2017 10:40
[2017-04-17] MEDS: RESP: ALBUTEROL 2.5 MG/3 ML NEB (PRN) INH (12:25)
[2017-04-17] MEDS ORDERED: ROCURONIUM INJ 50 MG/5 ML VIAL ONE ×2 (12:26→12:28)
[2017-04-17] MEDS ORDERED: PHENYLEPHRINE INJ 160 MG in DEXTROSE 5% IN WATE 500 ML INJ 484 ML IV SCH ×2 (12:30)
[2017-04-17] MEDS ORDERED: ROCURONIUM INJ 100 MG/10 ML VIAL IV ONE (12:30)
[2017-04-17] MEDS ORDERED: TERBUTALINE INJ 1 MG/ML AMP SQ PRN (12:30)
[2017-04-17] MEDS ORDERED: ETOMIDATE 40 MG/20 ML VIAL IV PUSH ONE (12:30)
--- NOTE | 2017-04-17 12:47 | HHI.CCPN ---
Subjective Remarks/Hospital Course 51-year-old female with past medical history of small cell lung cancer with liver metastases diagnosed in January 2017, tobacco abuse. She has been on palliative chemotherapy since March 08. She presented to [facility] emergency department on 04/07/17 with shortness of breath and has been treated for COPD exacerbation with nebs, Solu-Medrol, cefepime and azithromycin. She was placed on BiPAP and initially had some response. However she refused BiPAP and has becoming progressively lethargic through the course of the evening. An ABG was obtained and she has acute hypercapnic respiratory failure with pH 7.12/PaCO2 116/PA O2 of 101. Her RN discussed code status with her earlier and patient stated "intubate me if I need it". Further history is limited due to patient's altered mental status secondary to hypercapnic respiratory failure. CTA 04/07 was negative for pulmonary embolism. 04/08: CPAP trials attempted patient extremely anxious, unsuccessful. Plan to to transition to Precedex infusion for CPAP trials and weaning. ABG this a.m. 7.34/63/205/34/7.9, but patient gets extremely anxious when CPAP trials were initiated. 04/09 Patient is sedated with Diprivan and intubated. Afebrile. 04/10:Afebrile. Notably anxious this afternoon. Patient placed on Precedex infusion CPAP trials initiated. 04/11: Continue attempts at CPAP trials, one Precedex unsuccessful. Patient becomes extremely anxious despite Xanax. Patient now continues on propofol sedation for mechanical ventilation synchrony. 04/12: Medications readjusted today the patient continues on CPAP trials greater than 6 hours. Sodium level was noted to continue to be elevated free water flushes added to medication regimen. Off sedation the patient continues to be a GCS of 11 T. 04/13: Lasted only 10 minutes on PSV trial today. Continues to be on propofol and fentanyl drips for vent synchrony. Tolerating tube feeding. Positive BM. 04/14: Resting in bed. Currently not tolerating PSV trials. Arousable. Moves all 4 extremities spontaneously. No bowel movement. 04/15: Seen with Dr. Zhu. No acute distress. Awake and alert and following commands. Currently afebrile. 04/16: Attempt x-rays yesterday. Lasted 2 hours before reintubation. Intractable nausea and vomiting. CT abdomen pelvis 04/15 revealed ductal dilatation is contracted gallbladder with stone. LFTs slightly elevated. Recheck in this AM. Arousable and follows commands on the ventilator. Positive BM overnight. Subjective: 04/17: Attempt extubation. Lasted 15 minutes before reintubation due to distress. Saturations okay but "cannot catch breath". FiO2 30% and had excellent RSBI of around 30 and nif of -47. Vocal cords looked normal. Objective Vital Signs Date Time Temp Pulse Resp B/P Pulse Ox O2 Delivery O2 Flow Rate FiO2 04/17/17 12:28 99 Nasal Cannula 5.00 04/17/17 11:07 30 04/17/17 10:00 110 04/17/17 08:00 96.9 14 144/84 Intake and Output 04/16/17 04/16/17 04/17/17 08:00 16:00 00:00 Intake Total 2000 ml 1092 ml 900 ml Output Total 1500 ml 900 ml 775 ml Balance 500 ml 192 ml 125 ml Result Diagram: 04/17/17 0519 04/17/17 0519 Imaging Last Impressions Chest X-Ray 04/17/17 0600 Signed Impressions: Service Date/Time: Monday, April 17, 2017 03:51 - CONCLUSION: 1. Support apparatus in satisfactory position. No new infiltrate or effusion. Michael Bowen MD Cholangiopancreatography MRI 04/16/17 0000 Signed Impressions: Service Date/Time: Sunday, April 16, 2017 09:35 - CONCLUSION: 1. Unremarkable examination of the biliary tree. No evidence of ductal dilatation. 2. Cholelithiasis 3. Indeterminate lesions in liver as described above. Malignancy is not excluded. Administration of contrast would be helpful to further delineate these abnormalities Son Bryson MD Abdomen/Pelvis CT 04/15/17 0000 Signed Impressions: Service Date/Time: March 17:45 - CONCLUSION: 1. Biliary dilatation as described above. 2. Mass is again identified laterally in the right lobe. Central mass seen previously is poorly demonstrated on today's exam because of phase of the contrast. 3. Gallstones around a contracted gallbladder. Fred Vieyra MD FACR Abdomen X-Ray 04/15/17 0000 Signed Impressions: Service Date/Time: March 13:34 - CONCLUSION: Normal examination. Tomasz A. Sevigny, MD CT Angiography 04/07/17 0031 Signed Impressions: Service Date/Time: Friday, April 07, 2017 01:13 - CONCLUSION: 1. No pulmonary emboli. 2. Reduction in size of the mediastinal and hilar adenopathy. 3. Reduction in size of the left hepatic lobe metastasis. 4. Severe emphysematous changes. Roberth Lockett Jr., MD Objective Remarks GENERAL: 51-year-old female, critically ill currently resting in bed in no acute distress SKIN: Warm and dry. No rash HEAD: Normocephalic. EYES: Pupils equally round and reactive about 3 mm bilaterally No scleral icterus. No injection or drainage. NECK: Supple, trachea midline. No JVD or lymphadenopathy. CARDIOVASCULAR: Regular rate and rhythm , S2 no S4. Without murmurs, gallops, or rubs. RESPIRATORY: Diminished breath sounds throughout lung mathis. No wheezing appreciated. GASTROINTESTINAL: Abdomen soft, non-tender, nondistended. Active bowel sounds MUSCULOSKELETAL: No new skin peripheral edema. Neuro: Off sedation, Follows commands moves extremities 4 Date of Insertion: April 07, 2017 A/P Assessment and Plan NEURO/PSYCH: Anxiety disorder NOS Currently on propofol at 20 micrograms/kg/m and fentanyl drip as needed for sedation/analgesia while intubated Precedex drip written for weaning RASS target -2 Daily sedation vacation RESP: Acute hypercapnic respiratory failure COPD exacerbation Severe emphysematous COPD [facility] 16/12/03/29 Ventilator bundle DuoNeb therapy every 4 hours with albuterol nebs every 2 hours when necessary Wean FiO2 keep sats greater or equal to 92% SBT daily as prasanna. Continue Solu-Medrol 40 mg IV every 8 hours Pulmonology following, Dr. Zhu CTA 04/07 significant/severe pulmonary emphysema, decreasing mediastinal lymphadenopathy. Decrease in size of hepatic mass Home medications are Spiriva 18 V daily Atrovent HFA 2 puffs 4 times a day PFTs 04/13 revealed FVC 1.3. FEV1 0.5. 38% reversibility with bronchodilator. Severe airway obstruction. Lasted 2 hours extubation 04/15 and 15 minutes with extubation 04/17. Will need tracheostomy CV: Hypertension Dyslipidemia History of atrial fibrillation Monitor HR and BP keep MAP>65mmHg Continue Cardizem 60 mg by mouth every 6 hours /home medication Currently holding Lipitor 20 mg daily/home medication 2-D echo 02/12 revealed EF 55-60%. No regional wall motion abnormality. GI: Mild protein calorie malnutrition CT abdomen/pelvis 04/15 Revealed contracted gallbladder. Ductal dilatation biliary system/pancreas noted MRCP essentially normal. GI consultation Jevity 1.5 65 mL per hour be resumed Pepcid for GI prophylaxis Colace/Senokot twice a day for bowel regimen /Renal: Monitor renal function I/O's, electrolytes replacement per protocol. ID: Continue cefepime 04/07. Completed therapy with azithromycin. Monitor for signs of infections ( Fever, WBC) blood and urine culture- NGTD HEME/ONC: Small cell lung cancer with liver metastases on palliative chemotherapy Leukopenia Normocytic anemia Hematology following, Dr. Martinez Not a candidate for chemotherapy until extubated Noted consultation a palliative care per hematology yesterday. Remains full code ENDO: Acute hyperglycemia of critical illness On Low-dose insulin sliding scale every 4 hours. 7 unit insulin scale past 24 hours. Continue Levemir but increased from 5 to 12 units twice a day today FEN: Hypernatremia - resolved Access - Right Port-A-Cath Prophylaxis - GI - Pepcid - DVT - SCD/Lovenox subcutaneous Critical Care: The total critical care time was 30 minutes. Time to perform other separately billable procedures was not included in the critical care time. . Rolando Connor MD April 17, 2017 12:47
--- NOTE | 2017-04-17 12:48 | PD.PROCEDR ---
Procedure Note Procedure DATE: 04/17/2017 PROCEDURE: Orotracheal intubation INDICATION: Respiratory failure/acute hypercapnic DETAILS OF PROCEDURE The patient was placed in optimal position and preoxygenated with 100% FiO2 via bag valve mask. At the start oxygen saturation was 100%. The patient was administered 20 mg etomidate IV and 100 milligrams rocuronium IV. I entered the oropharynx with a size 4 GVL glidescope blade and obtained a grade 2 view of the airway. On single attempt a size 8.5 cuffed endotracheal tube was passed through the vocal cords. Correct tube location was confirmed with end tidal CO2 detector and by auscultating over bilateral lung mathis. The endotracheal tube was secured with adhesive tape at a depth of 23 cm at the lips. The patient was connected to the ventilator. The patient tolerated the procedure well without any apparent complications. Oxygen saturations were maintained greater than 95% all times. STAT chest x-ray pending at time of dictation. Rolando Connor MD April 17, 2017 12:48
[2017-04-17] MEDS: SODIUM CHLOR 0.9% 1000 ML INJ 1,000 ML IV SCH ×2 (14:23→23:38)
--- NOTE | 2017-04-17 14:25 | RADRPT ---
EXAM DATE/TIME: 04/17/2017 12:44 [place] COMPARISON: CHEST SINGLE AP, April 17, 2017, 3:51. INDICATIONS : Reintubation. MEDICAL HISTORY : Carcinoma, lung. Hypertension Chronic obstructive pulmonary disease. SURGICAL HISTORY : Tubal ligation. ENCOUNTER: Subsequent ACUITY: 1 week PAIN SCORE: Non-responsive. LOCATION: Bilateral chest FINDINGS: Single AP view of the chest. Endotracheal tube, nasogastric tube, right sided [id number] remain in place. Lungs grossly clear. Cardiomediastinal silhouette within normal limits. No evidence of pleura l effusion or pneumothorax. CONCLUSION: Lines and tubes in place. No acute cardiopulmonary disease identified. Stanley Haile MD on April 17, 2017 at 14:22 Board Certified Radiologist. This report was verified electronically.
--- NOTE | 2017-04-17 16:40 | HHI.PR ---
Subjective Remarks on the vent , sedated responding appropriately extubated yesterday had to be reintubated Objective Vital Signs Date Time Temp Pulse Resp B/P Pulse Ox O2 Delivery O2 Flow Rate FiO2 04/17/17 16:00 78 04/17/17 16:00 30 04/17/17 14:00 88 04/17/17 12:46 99 30 04/17/17 12:44 30 04/17/17 12:28 99 Nasal Cannula 5.00 04/17/17 12:20 100 Nasal Cannula 5 04/17/17 12:00 97 04/17/17 12:00 30 04/17/17 12:00 98.1 97 27 154/79 97 04/17/17 11:07 30 04/17/17 11:07 100 30 04/17/17 10:00 110 04/17/17 10:00 100 30 04/17/17 08:00 90 04/17/17 08:00 96.9 90 14 144/84 99 04/17/17 08:00 30 04/17/17 07:23 100 30 04/17/17 06:00 81 04/17/17 04:00 30 04/17/17 04:00 98.3 88 14 141/82 100 04/17/17 04:00 81 04/17/17 03:53 100 30 04/17/17 02:00 81 04/17/17 01:25 99 30 04/17/17 00:00 97.9 80 14 143/80 100 04/17/17 00:00 30 04/17/17 00:00 81 04/16/17 22:08 99 30 04/16/17 22:00 81 04/16/17 20:33 100 30 04/16/17 20:00 30 04/16/17 20:00 98.3 83 14 123/81 100 04/16/17 20:00 88 04/16/17 18:00 88 I/O 04/16/17 04/16/17 04/16/17 04/17/17 04/17/17 04/17/17 06:59 14:59 22:59 06:59 14:59 22:59 Intake Total 2000 ml 1092 ml 900 ml 950 ml 1194 ml Output Total 1500 ml 900 ml 775 ml 900 ml 1625 ml Balance 500 ml 192 ml 125 ml 50 ml -431 ml IV Total 1750 ml 992 ml 775 ml 825 ml 1014 ml Tube Irrigant 250 ml 100 ml 125 ml 125 ml 180 ml Output Urine Total 1500 ml 850 ml 725 ml 850 ml 1625 ml Gastric Drainage Total 50 ml 50 ml 50 ml # Bowel Movements 1 2 1 1 0 Result Diagram: 04/17/1751804/17/17518 Objective Remarks GENERAL: SKIN: Warm and dry. HEAD: Atraumatic. Normocephalic. EYES: Pupils equal and round. No scleral icterus. No injection or drainage. ENT: No nasal bleeding or discharge. Mucous membranes pink and moist. NECK: Trachea midline. No JVD. CARDIOVASCULAR: Regular rate and rhythm. RESPIRATORY: No accessory muscle use. Clear to auscultation. Breath sounds equal bilaterally. GASTROINTESTINAL: Abdomen soft, non-tender, nondistended. Hepatic and splenic margins not palpable. MUSCULOSKELETAL: Extremities without clubbing, cyanosis, or edema. No obvious deformities. NEUROLOGICAL: Awake and alert. No obvious cranial nerve deficits. Motor grossly within normal limits. Five out of 5 muscle strength in the arms and legs. Normal speech. PSYCHIATRIC: Appropriate mood and affect; insight and judgment normal. Assessment and Plan Assessment and Plan ass: On the vent respiratory failure copd lung CA PLAN VENT SUPPORT BRONCHODILATOR THERAPY will likely need tracheostomy Audra Zhu MD April 17, 2017 16:40
--- NOTE | 2017-04-17 17:58 | HHI.GIFU ---
Subjective Remarks Pt extubated today then required re intubation. she will get a trach tube placed tomorrow. she had MRCP yesterday that showed dilated cbd but no filling defect. Contracted gallbladder around stones. She is back on tube feeding and tolerating OK Objective Vitals I&O Vital Signs Date Time Temp Pulse Resp B/P Pulse Ox O2 Delivery O2 Flow Rate FiO2 04/17/17 16:38 100 30 04/17/17 16:00 78 04/17/17 16:00 30 04/17/17 16:00 98.1 78 14 142/89 100 04/17/17 14:00 88 04/17/17 12:46 99 30 04/17/17 12:44 30 04/17/17 12:28 99 Nasal Cannula 5.00 04/17/17 12:20 100 Nasal Cannula 5 04/17/17 12:00 97 04/17/17 12:00 30 04/17/17 12:00 98.1 97 27 154/79 97 04/17/17 11:07 30 04/17/17 11:07 100 30 04/17/17 10:00 110 04/17/17 10:00 100 30 04/17/17 08:00 90 04/17/17 08:00 96.9 90 14 144/84 99 04/17/17 08:00 30 04/17/17 07:23 100 30 04/17/17 06:00 81 04/17/17 04:00 30 04/17/17 04:00 98.3 88 14 141/82 100 04/17/17 04:00 81 04/17/17 03:53 100 30 04/17/17 02:00 81 04/17/17 01:25 99 30 04/17/17 00:00 97.9 80 14 143/80 100 04/17/17 00:00 30 04/17/17 00:00 81 04/16/17 22:08 99 30 04/16/17 22:00 81 04/16/17 20:33 100 30 04/16/17 20:00 30 04/16/17 20:00 98.3 83 14 123/81 100 04/16/17 20:00 88 04/16/17 18:00 88 I/O 04/16/17 04/16/17 04/16/17 04/17/17 04/17/17 04/17/17 07:00 15:00 23:00 07:00 15:00 23:00 Intake Total 2000 ml 1092 ml 900 ml 950 ml 1194 ml Output Total 1500 ml 900 ml 775 ml 900 ml 1625 ml Balance 500 ml 192 ml 125 ml 50 ml -431 ml IV Total 1750 ml 992 ml 775 ml 825 ml 1014 ml Tube Irrigant 250 ml 100 ml 125 ml 125 ml 180 ml Output Urine Total 1500 ml 850 ml 725 ml 850 ml 1625 ml Gastric Drainage Total 50 ml 50 ml 50 ml # Bowel Movements 1 2 1 1 0 Laboratory Laboratory Tests Test 04/17/17 05:19 White Blood Count 1.6 Red Blood Count 3.17 Hemoglobin 9.2 Hematocrit 27.5 Mean Corpuscular Volume 86.7 Mean Corpuscular Hemoglobin 28.9 Mean Corpuscular Hemoglobin 33.3 Concent Red Cell Distribution Width 17.3 Platelet Count 88 Mean Platelet Volume 8.7 Neutrophils (%) (Auto) 58.6 Lymphocytes (%) (Auto) 25.5 Monocytes (%) (Auto) 15.7 Eosinophils (%) (Auto) 0.1 Basophils (%) (Auto) 0.1 Neutrophils # (Auto) 0.9 Lymphocytes # (Auto) 0.4 Monocytes # (Auto) 0.3 Eosinophils # (Auto) 0.0 Basophils # (Auto) 0.0 CBC Comment AUTO DIFF Differential Total Cells 100 Counted Neutrophils % (Manual) 42 Band Neutrophils % 23 Lymphocytes % 24 Monocytes % 11 Neutrophils # (Manual) 1.0 Nucleated Red Blood Cells 5 Differential Comment FINAL DIFF MANUAL Platelet Estimate LOW Platelet Morphology Comment NORMAL Ovalocytes 1+ Acanthocytes OCC Sodium Level 142 Potassium Level 4.3 Chloride Level 103 Carbon Dioxide Level 31.7 Anion Gap 7 Blood Urea Nitrogen 18 Creatinine 0.38 Estimat Glomerular Filtration 179 Rate Random Glucose 159 Calcium Level 8.2 Phosphorus Level 3.2 Magnesium Level 2.8 Total Bilirubin 0.4 Aspartate Amino Transf 18 (AST/SGOT) Alanine Aminotransferase 95 (ALT/SGPT) Alkaline Phosphatase 51 Total Protein 5.4 Albumin 2.6 Physical Exam HEENT: Pupils round and reactive to light; normocephalic; atraumatic; no jaundice. Throat is clear. NECK: Neck is supple, no JVD, no lymphadenopathy. CHEST: Chest is clear to auscultation and percussion. CARDIAC: Regular rate and rhythm with no murmur gallop or rubs. ABDOMEN: Soft, nondistended, nontender; no hepatosplenomegaly; bowel sounds are present in all four quadrants. EXTREMITIES: No clubbing, cyanosis, or edema. SKIN: Normal; no rash; no jaundice. PAPER INSERTER: No focal deficits; alert and oriented times three. Assessment and Plan Plan ASSESSMENT: - Nausea and vomiting with biliary dilatation on CT. Pt with known SCLC with metastatic disease to the liver. She is receiving palliative tx and based on CTA (04/07), she has had reduction in size of left hepatic lobe metastasis. She was extubated and started having intractable nausea and vomiting. Abdomen/Pelvis CT (04/15/17)---- > 1. Biliary dilatation as described above. 2. Mass is again identified laterally in the right lobe. Central mass seen previously is poorly demonstrated on today's exam because of phase of the contrast. 3. Gallstones around a contracted gallbladder. Of note, on bowel regimen. + BM. LFT 0.5, AST 38, ALT 94, Alk Phosph 51 yesterday. MRCP pending. Will await results of this. - Cholelithiasis with contracted gallbladder. MRCP pending. - Elevated LFTs secondary to above. LFT 0.5, AST 38, ALT 94, Alk Phosph 51 yesterday. - Pancytopenia, likely related to chemotherapy. - SCLC with metastatic disease to the liver. Dx January 2017. Recently started palliative chemotherapy with carboplatin and etoposide earlier this month. Oncology following. - Resp. Failure, COPD, Emphysema. Extubated, but required reintubation yesterday secondary to intractable nausea/vomiting. - HTN, Dysplipidemia, Atrial fibrillation. Per CCM 04/17 failed extubation, will need trach. Will probably need PEG tube. PLAN: Tube feeding Cont. bowel regimen Jus Villanueva MD April 17, 2017 17:58
[2017-04-17] MEDS: ENOXAPARIN SODIUM 40 MG/0.4 ML SYRINGE SQ SCH (23:38)
[2017-04-18] VITALS (22 sets, daily range): BP systolic 106–151; BP diastolic 69–88; PULSE 78–100; RESP 14–15; TEMP 97.8–98.7; O2SAT 98–100
[2017-04-18] MEDS: PROPOFOL 1000 MG/100 ML INJ 100 ML IV SCH ×5 (02:46→23:00)
[2017-04-18] MEDS: INSULIN ASPART SUPPLEMENTAL SCALE SQ SCH ×5 (04:00→20:00)
[2017-04-18] MEDS: RESP: ALBUTEROL 2.5 MG/IPRATROPIUM 0.5 MG NEB (SCH) NEB ×6 (04:13→23:49)
[2017-04-18] MEDS: methylPREDNISolone SOD SUCC 125 MG/2 ML VIAL IVP SCH ×3 (05:34→23:13)
[2017-04-18] MEDS: LACTULOSE SYRUP 20 GM/30 ML CUP PO SCH ×2 (05:34→11:36)
[2017-04-18] MEDS: DILTIAZEM HCL 60 MG TAB PO SCH ×4 (05:34→23:12)
[2017-04-18] MEDS: METOCLOPRAMIDE HCL 10 MG/2 ML VIAL IV PUSH SCH ×3 (05:34→23:13)
[2017-04-18 06:05] LABS: HEMATOCRIT 26.3 % (35.0-46.0); MEAN CELL VOLUME 87.6 FL (80.0-100.0); MEAN CORPUSCULAR HGB CONC 33.1 % (32.0-36.0); PLATELET COUNT 63 TH/MM3 (150-450); RED BLOOD COUNT 3.01 MIL/MM3 (4.00-5.30); RED CELL DISTRIBUTION WIDTH 18.2 % (11.6-17.2); WHITE BLOOD COUNT 1.7 TH/MM3 (4.0-11.0)
[2017-04-18 06:10] LABS: REVIEW FLAG FINAL
[2017-04-18 06:34] LABS: BICARBONATE 32.1 MEQ/L (21.0-32.0); POTASSIUM 3.9 MEQ/L (3.5-5.1)
[2017-04-18] MEDS: RESP: BUDESONIDE 0.5 MG/2 ML NEB NEB SCH ×2 (07:17→20:06)
[2017-04-18] MEDS: DOCUSATE SODIUM 100 MG/10 ML UDC PO SCH (09:00)
[2017-04-18] MEDS: POLYETHYLENE GLYCOL 17 GM PKG PO SCH (09:00)
[2017-04-18] MEDS: SENNOSIDES SYRUP 8.8 MG/5 ML CUP PO SCH (09:00)
[2017-04-18] MEDS: FAMOTIDINE 20 MG TAB PO SCH (09:14)
[2017-04-18] MEDS: CEFEPIME INJ 1,000 MG in SODIUM CHLORIDE 0.9% INJ 100 ML IV SCH (09:14)
[2017-04-18] MEDS: CHLORHEXIDINE 0.12% (ORAL KIT) 15 ML CUP MT SCH ×2 (09:14→23:14)
[2017-04-18] MEDS: SODIUM CHLORIDE 0.9% FLUSH 10 ML FLUSH IV FLUSH SCH ×2 (09:20→23:13)
--- NOTE | 2017-04-18 09:31 | HHI.CCPN ---
Subjective Remarks/Hospital Course 51-year-old female with past medical history of small cell lung cancer with liver metastases diagnosed in January 2017, tobacco abuse. She has been on palliative chemotherapy since March 08. She presented to [facility] emergency department on 04/07/17 with shortness of breath and has been treated for COPD exacerbation with nebs, Solu-Medrol, cefepime and azithromycin. She was placed on BiPAP and initially had some response. However she refused BiPAP and has becoming progressively lethargic through the course of the evening. An ABG was obtained and she has acute hypercapnic respiratory failure with pH 7.12/PaCO2 116/PA O2 of 101. Her RN discussed code status with her earlier and patient stated "intubate me if I need it". Further history is limited due to patient's altered mental status secondary to hypercapnic respiratory failure. CTA 04/07 was negative for pulmonary embolism. 04/08: CPAP trials attempted patient extremely anxious, unsuccessful. Plan to to transition to Precedex infusion for CPAP trials and weaning. ABG this a.m. 7.34/63/205/34/7.9, but patient gets extremely anxious when CPAP trials were initiated. 04/09 Patient is sedated with Diprivan and intubated. Afebrile. 04/10:Afebrile. Notably anxious this afternoon. Patient placed on Precedex infusion CPAP trials initiated. 04/11: Continue attempts at CPAP trials, one Precedex unsuccessful. Patient becomes extremely anxious despite Xanax. Patient now continues on propofol sedation for mechanical ventilation synchrony. 04/12: Medications readjusted today the patient continues on CPAP trials greater than 6 hours. Sodium level was noted to continue to be elevated free water flushes added to medication regimen. Off sedation the patient continues to be a GCS of 11 T. 04/13: Lasted only 10 minutes on PSV trial today. Continues to be on propofol and fentanyl drips for vent synchrony. Tolerating tube feeding. Positive BM. 04/14: Resting in bed. Currently not tolerating PSV trials. Arousable. Moves all 4 extremities spontaneously. No bowel movement. 04/15: Seen with Dr. Zhu. No acute distress. Awake and alert and following commands. Currently afebrile. 04/16: Attempt x-rays yesterday. Lasted 2 hours before reintubation. Intractable nausea and vomiting. CT abdomen pelvis 04/15 revealed ductal dilatation is contracted gallbladder with stone. LFTs slightly elevated. Recheck in this AM. Arousable and follows commands on the ventilator. Positive BM overnight. 04/17: Attempt extubation. Lasted 15 minutes before reintubation due to distress. Saturations okay but "cannot catch breath". FiO2 30% and had excellent RSBI of around 30 and nif of -47. Vocal cords looked normal. Subjective: 04/18: Currently resting in bed with FiO2 30%. Afebrile. Tolerating tube feeds. No changes past 24 hours. Platelets are trending downward. Lovenox held and heparin antibody sent Objective Vital Signs Date Time Temp Pulse Resp B/P Pulse Ox O2 Delivery O2 Flow Rate FiO2 04/18/17 08:00 30 04/18/17 08:00 78 04/18/17 08:00 97.8 14 146/88 100 04/17/17 12:28 Nasal Cannula 5.00 Intake and Output 04/17/17 04/17/17 04/18/17 08:00 16:00 00:00 Intake Total 950 ml 1194 ml 1195 ml Output Total 900 ml 1625 ml 1825 ml Balance 50 ml -431 ml -630 ml Result Diagram: 04/18/17 0505 04/18/17 0505 Imaging Last Impressions Chest X-Ray 04/17/17 0600 Signed Impressions: Service Date/Time: Monday, April 17, 2017 03:51 - CONCLUSION: 1. Support apparatus in satisfactory position. No new infiltrate or effusion. Michael Bowen MD Cholangiopancreatography MRI 04/16/17 0000 Signed Impressions: Service Date/Time: Sunday, April 16, 2017 09:35 - CONCLUSION: 1. Unremarkable examination of the biliary tree. No evidence of ductal dilatation. 2. Cholelithiasis 3. Indeterminate lesions in liver as described above. Malignancy is not excluded. Administration of contrast would be helpful to further delineate these abnormalities Son Bryson MD Abdomen/Pelvis CT 04/15/17 0000 Signed Impressions: Service Date/Time: March 17:45 - CONCLUSION: 1. Biliary dilatation as described above. 2. Mass is again identified laterally in the right lobe. Central mass seen previously is poorly demonstrated on today's exam because of phase of the contrast. 3. Gallstones around a contracted gallbladder. Fred Vieyra MD FACR Abdomen X-Ray 04/15/17 0000 Signed Impressions: Service Date/Time: March 13:34 - CONCLUSION: Normal examination. Tomasz New MD CT Angiography 04/07/17 0031 Signed Impressions: Service Date/Time: Friday, April 07, 2017 01:13 - CONCLUSION: 1. No pulmonary emboli. 2. Reduction in size of the mediastinal and hilar adenopathy. 3. Reduction in size of the left hepatic lobe metastasis. 4. Severe emphysematous changes. Roberth Lockett Jr., MD Objective Remarks GENERAL: 51-year-old female, critically ill orotracheally intubated currently resting in bed in no acute distress SKIN: Warm and dry. No rash HEAD: Normocephalic. EYES: Pupils equally round and reactive about 3 mm bilaterally No scleral icterus. No injection or drainage. NECK: Supple, trachea midline. No JVD or lymphadenopathy. CARDIOVASCULAR: Regular rate and rhythm , S2 no S4. Without murmurs, gallops, or rubs. RESPIRATORY: Diminished breath sounds throughout lung mathis. No wheezing appreciated. GASTROINTESTINAL: Abdomen soft, non-tender, nondistended. Active bowel sounds MUSCULOSKELETAL: No new skin peripheral edema. Right port site is clean dry and intact without bleeding or erythema Neuro: Off sedation, Follows commands moves extremities 4 Date of Insertion: April 07, 2017 A/P Assessment and Plan NEURO/PSYCH: Anxiety disorder NOS Currently on propofol at 25 micrograms/kg/m and fentanyl drip as needed for sedation/analgesia while intubated RASS target -2 Daily sedation vacation RESP: Acute hypercapnic respiratory failure COPD exacerbation Severe emphysematous COPD [facility] /12/03/29 Ventilator bundle DuoNeb therapy every 4 hours with albuterol nebs every 2 hours when necessary Wean FiO2 keep sats greater or equal to 92% SBT daily as prasanna. Continue Solu-Medrol 40 mg IV every 8 hours Pulmonology following, Dr. Zhu CTA 04/07 significant/severe pulmonary emphysema, decreasing mediastinal lymphadenopathy. Decrease in size of hepatic mass Home medications are Spiriva 18 V daily Atrovent HFA 2 puffs 4 times a day PFTs 04/13 revealed FVC 1.3. FEV1 0.5. 38% reversibility with bronchodilator. Severe airway obstruction. Lasted 2 hours extubation 04/15 and 15 minutes with extubation 04/17. Will need tracheostomy CV: Hypertension Dyslipidemia History of atrial fibrillation Monitor HR and BP keep MAP>65mmHg Continue Cardizem 60 mg by mouth every 6 hours /home medication Currently holding Lipitor 20 mg daily/home medication 2-D echo 02/12 revealed EF 55-60%. No regional wall motion abnormality. GI: Mild protein calorie malnutrition CT abdomen/pelvis 04/15 Revealed contracted gallbladder. Ductal dilatation biliary system/pancreas noted MRCP essentially normal. GI consultation Jevity 1.5 65 mL per hour be resumed currently at 40 cc an hour Prevacid for GI prophylaxis Colace/Senokot twice a day for bowel regimen /Renal: Monitor renal function I/O's, electrolytes replacement per protocol. ID: Completed cefepime therapy today. Completed therapy with azithromycin. Monitor for signs of infections (Fever, WBC) blood and urine culture- NGTD Ordered repeat blood cultures 2/urine and sputum today 04/18 HEME/ONC: Small cell lung cancer with liver metastases on palliative chemotherapy Leukopenia Normocytic anemia Thrombocytopenia Hematology following, Dr. Martinez Not a candidate for chemotherapy until extubated Noted consultation a palliative care per hematology yesterday. Remains full code Holding Lovenox. Hit panel sent. ENDO: Acute hyperglycemia of critical illness On Low-dose insulin sliding scale every 4 hours. 7 unit insulin scale past 24 hours. Continue Levemir but increased from 5 to 12 units twice a day today FEN: Hypernatremia - resolved Access - Right Port-A-Cath Prophylaxis - GI -Prevacid - DVT - SCD/Lovenox subcutaneous Critical Care: The total critical care time was 30 minutes. Time to perform other separately billable procedures was not included in the critical care time. . Rolando Connor MD April 18, 2017 09:30
--- NOTE | 2017-04-18 11:08 | HHI.PR ---
Subjective Remarks Patient intubated again after extuabtion for short period of time yesterday alert following commands Unable to get any information from patient Objective Objective Results - Vital Signs Date Time Temp Pulse Resp B/P Pulse Ox O2 Delivery O2 Flow Rate FiO2 04/18/17 10:29 99 30 04/18/17 10:04 30 04/18/17 10:04 100 30 04/18/17 08:00 30 04/18/17 08:00 78 04/18/17 08:00 97.8 78 14 146/88 100 04/18/17 07:17 100 30 04/18/17 06:00 93 04/18/17 04:10 100 30 04/18/17 04:00 93 04/18/17 04:00 98.7 93 14 119/79 100 04/18/17 04:00 30 04/18/17 03:00 89 14 125/80 100 04/18/17 02:00 92 14 141/84 99 04/18/17 02:00 92 14 141/84 99 04/18/17 02:00 92 04/18/17 01:00 97 15 127/83 100 04/18/17 01:00 97 15 127/83 100 04/18/17 00:00 98.4 100 15 151/80 100 04/18/17 00:00 100 15 151/80 100 04/18/17 00:00 30 04/18/17 00:00 100 30 04/18/17 00:00 100 04/17/17 23:00 102 18 160/90 100 04/17/17 22:00 99 14 163/89 100 04/17/17 22:00 99 04/17/17 21:00 99 14 163/90 100 04/17/17 20:00 30 04/17/17 20:00 98.3 100 17 156/91 100 04/17/17 20:00 100 04/17/17 19:32 100 30 04/17/17 18:00 115 04/17/17 17:15 87 14 142/84 100 04/17/17 17:00 84 14 154/91 100 04/17/17 16:45 84 14 151/87 100 04/17/17 16:38 100 30 04/17/17 16:30 85 14 154/84 100 04/17/17 16:15 82 14 161/91 100 04/17/17 16:00 78 04/17/17 16:00 30 04/17/17 16:00 78 14 142/89 100 04/17/17 16:00 98.1 78 14 142/89 100 04/17/17 15:45 78 14 146/87 100 04/17/17 15:45 78 14 146/87 100 04/17/17 15:30 78 14 137/84 100 04/17/17 15:15 82 14 128/81 100 04/17/17 15:00 83 14 125/76 100 04/17/17 14:45 88 14 134/79 100 04/17/17 14:30 83 14 118/78 100 04/17/17 14:15 85 14 124/79 100 04/17/17 14:10 83 14 154/84 100 04/17/17 14:00 88 04/17/17 14:00 88 14 100 04/17/17 13:45 87 14 112/72 100 04/17/17 13:30 90 14 110/72 100 04/17/17 13:15 92 14 134/79 98 04/17/17 13:00 118 15 144/98 98 04/17/17 12:48 127 14 158/102 100 04/17/17 12:46 99 30 04/17/17 12:45 119 18 135/75 100 04/17/17 12:44 30 04/17/17 12:43 122 14 153/85 100 04/17/17 12:41 131 21 181/103 100 04/17/17 12:38 109 31 226/109 99 04/17/17 12:28 99 Nasal Cannula 5.00 04/17/17 12:20 100 Nasal Cannula 5 04/17/17 12:00 97 27 154/79 97 04/17/17 12:00 97 04/17/17 12:00 30 04/17/17 12:00 97 27 154/79 97 04/17/17 12:00 98.1 97 27 154/79 97 04/17/17 11:07 30 04/17/17 11:07 100 30 I/O 5/ 520/17 520/17 5//17 5/17 5 07:00 15:00 23:00 07:00 15:00 23:00 Intake Total 950 ml 1194 ml 1195 ml 1257 ml Output Total 900 ml 1625 ml 1825 ml 1700 ml Balance 50 ml -431 ml -630 ml -443 ml IV Total 825 ml 1014 ml 891 ml 876 ml Tube Feeding 144 ml 221 ml Tube Irrigant 125 ml 180 ml 60 ml 60 ml Other 100 ml 100 ml Output Urine Total 850 ml 1625 ml 1825 ml 1700 ml Gastric Drainage Total 50 ml # Bowel Movements 1 0 1 1 Result Diagram: 04/18/17 0505 04/18/17 0505 Other Results Laboratory Tests Test 04/18/17 05:05 White Blood Count 1.7 Red Blood Count 3.01 Hemoglobin 8.7 Hematocrit 26.3 Mean Corpuscular Volume 87.6 Mean Corpuscular Hemoglobin 29.0 Mean Corpuscular Hemoglobin 33.1 Concent Red Cell Distribution Width 18.2 Platelet Count 63 Mean Platelet Volume 8.6 Sodium Level 145 Potassium Level 3.9 Chloride Level 105 Carbon Dioxide Level 32.1 Anion Gap 8 Blood Urea Nitrogen 15 Creatinine 0.32 Estimat Glomerular Filtration 218 Rate Random Glucose 206 Calcium Level 8.2 Physical Exam Physical Exam VITAL SIGNS: Reviewed. GENERAL: This is a 51-year-old female intubated HEENT: Within ET tube in an OG tube CARDIOVASCULAR SYSTEM: Tachycardic. S1 and S2 audible. Heart rate between 100 - 110 sinus tachycardia RESPIRATORY SYSTEM: Good air entry. There is occasional scattered wheezing. Occasional rhonchi bibasally. GASTROINTESTINAL SYSTEM: Bowel sounds are present. No tenderness, guarding or rebound. MUSCULOSKELETAL SYSTEM: Sedated NEUROLOGICAL EXAM: on vent followig commands skin, warm and dry Date of Insertion: April 07, 2017 A/P Assessment and Plan (1) Hypercapnic respiratory failure (2) Acute exacerbation of chronic obstructive pulmonary disease (COPD) (3) SCLC (small cell lung carcinoma) Plan: with liver mets (4) Hyperglycemia (5) Depression (6) A-fib (7) Hypertension Plan extubated than after 15 min this time reintubated again yestterday. so total 2 z extubated and reintubated Vent Management management as per pulmonary/critical care. for trach dw fruit tester plan for extubation today likely aspiration pna Duonebs IV steroids empiric antibiotics cultures negative oncology following, input appreciated CT PE protocol reviewed reduction in size of mediastinal and hilar adenopathy. An reduction in size of left hepatic lobe metastasis. Severe emphysematous changes. no chemotherapy plans at this time, hospice recommended Leukopenia, monitor WBC dec PLt will monitor lovenox on hold continue tube feeding Bowel regimen had BM today as per rn Anemia post hydration will monitor,stable hx afib, continue Cardizem via OGT remains SR/ST Lovenox for DVT prophylaxis Pepcid for GI prophylaxis Palliative care following, goals remains aggressive. Input appreciated CM for dc planning, select rehab Full code condition criticle Labs reviewed D/W RN explained to pt Sohail Sellers MD April 18, 2017 11:08
--- NOTE | 2017-04-18 12:47 | HHI.GIFU ---
Subjective Remarks Pt resting in bed, in no apparent distress. She is intubated but awake. She indicates no pain or nausea or vomiting. Objective Vitals I&O Vital Signs Date Time Temp Pulse Resp B/P Pulse Ox O2 Delivery O2 Flow Rate FiO2 04/18/17 12:00 30 04/18/17 12:00 97.9 87 14 139/82 100 04/18/17 12:00 78 04/18/17 10:29 99 30 04/18/17 10:04 30 04/18/17 10:04 100 30 04/18/17 10:00 78 04/18/17 08:00 30 04/18/17 08:00 78 04/18/17 08:00 97.8 78 14 146/88 100 04/18/17 07:17 100 30 04/18/17 06:00 93 04/18/17 04:10 100 30 04/18/17 04:00 93 04/18/17 04:00 98.7 93 14 119/79 100 04/18/17 04:00 30 04/18/17 03:00 89 14 125/80 100 04/18/17 02:00 92 14 141/84 99 04/18/17 02:00 92 14 141/84 99 04/18/17 02:00 92 04/18/17 01:00 97 15 127/83 100 04/18/17 01:00 97 15 127/83 100 04/18/17 00:00 98.4 100 15 151/80 100 04/18/17 00:00 100 15 151/80 100 04/18/17 00:00 30 04/18/17 00:00 100 30 04/18/17 00:00 100 04/17/17 23:00 102 18 160/90 100 04/17/17 22:00 99 14 163/89 100 04/17/17 22:00 99 04/17/17 21:00 99 14 163/90 100 04/17/17 20:00 30 04/17/17 20:00 98.3 100 17 156/91 100 04/17/17 20:00 100 04/17/17 19:32 100 30 04/17/17 18:00 115 04/17/17 17:15 87 14 142/84 100 04/17/17 17:00 84 14 154/91 100 04/17/17 16:45 84 14 151/87 100 04/17/17 16:38 100 30 04/17/17 16:30 85 14 154/84 100 04/17/17 16:15 82 14 161/91 100 04/17/17 16:00 78 04/17/17 16:00 30 04/17/17 16:00 78 14 142/89 100 04/17/17 16:00 98.1 78 14 142/89 100 04/17/17 15:45 78 14 146/87 100 04/17/17 15:45 78 14 146/87 100 04/17/17 15:30 78 14 137/84 100 04/17/17 15:15 82 14 128/81 100 04/17/17 15:00 83 14 125/76 100 04/17/17 14:45 88 14 134/79 100 04/17/17 14:30 83 14 118/78 100 04/17/17 14:15 85 14 124/79 100 04/17/17 14:10 83 14 154/84 100 04/17/17 14:00 88 04/17/17 14:00 88 14 100 04/17/17 13:45 87 14 112/72 100 04/17/17 13:30 90 14 110/72 100 04/17/17 13:15 92 14 134/79 98 04/17/17 13:00 118 15 144/98 98 04/17/17 12:48 127 14 158/102 100 04/17/17 12:46 99 30 04/17/17 12:45 119 18 135/75 100 04/17/17 12:44 30 04/17/17 12:43 122 14 153/85 100 04/17/17 12:41 131 21 181/103 100 04/17/17 12:38 109 31 226/109 99 I/O 04/17/ 5/17 5/17 5/17 5/04/18/17 07:00 15:00 23:00 07:00 15:00 23:00 Intake Total 950 ml 1194 ml 1195 ml 1257 ml Output Total 900 ml 1625 ml 1825 ml 1700 ml Balance 50 ml -431 ml -630 ml -443 ml IV Total 825 ml 1014 ml 891 ml 876 ml Tube Feeding 144 ml 221 ml Tube Irrigant 125 ml 180 ml 60 ml 60 ml Other 100 ml 100 ml Output Urine Total 850 ml 1625 ml 1825 ml 1700 ml Gastric Drainage Total 50 ml # Bowel Movements 1 0 1 1 Laboratory Laboratory Tests Test 04/18/17 05:05 White Blood Count 1.7 Red Blood Count 3.01 Hemoglobin 8.7 Hematocrit 26.3 Mean Corpuscular Volume 87.6 Mean Corpuscular Hemoglobin 29.0 Mean Corpuscular Hemoglobin 33.1 Concent Red Cell Distribution Width 18.2 Platelet Count 63 Mean Platelet Volume 8.6 Sodium Level 145 Potassium Level 3.9 Chloride Level 105 Carbon Dioxide Level 32.1 Anion Gap 8 Blood Urea Nitrogen 15 Creatinine 0.32 Estimat Glomerular Filtration 218 Rate Random Glucose 206 Calcium Level 8.2 Date/Time Procedure Status Source Growth 04/18/17 11:05 Aerobic Blood Culture Received Blood Peripheral Pending 04/18/17 11:05 Anaerobic Blood Culture Received Blood Peripheral Pending Imaging Last Impressions Chest X-Ray 04/17/17 0600 Signed Impressions: Service Date/Time: Monday, April 17, 2017 03:51 - CONCLUSION: 1. Support apparatus in satisfactory position. No new infiltrate or effusion. Michael Bowen MD Cholangiopancreatography MRI 04/16/17 0000 Signed Impressions: Service Date/Time: Sunday, April 16, 2017 09:35 - CONCLUSION: 1. Unremarkable examination of the biliary tree. No evidence of ductal dilatation. 2. Cholelithiasis 3. Indeterminate lesions in liver as described above. Malignancy is not excluded. Administration of contrast would be helpful to further delineate these abnormalities Son Bryson MD Abdomen/Pelvis CT 04/15/17 0000 Signed Impressions: Service Date/Time: March 17:45 - CONCLUSION: 1. Biliary dilatation as described above. 2. Mass is again identified laterally in the right lobe. Central mass seen previously is poorly demonstrated on today's exam because of phase of the contrast. 3. Gallstones around a contracted gallbladder. Fred Vieyra MD FACR Abdomen X-Ray 04/15/17 0000 Signed Impressions: Service Date/Time: March 13:34 - CONCLUSION: Normal examination. Tomasz New MD CT Angiography 04/07/17 0031 Signed Impressions: Service Date/Time: Friday, April 07, 2017 01:13 - CONCLUSION: 1. No pulmonary emboli. 2. Reduction in size of the mediastinal and hilar adenopathy. 3. Reduction in size of the left hepatic lobe metastasis. 4. Severe emphysematous changes. Roberth Lockett Jr., MD Physical Exam HEENT: EOMI; normocephalic; atraumatic; no jaundice. CHEST: Chest is clear to auscultation and percussion. CARDIAC: irregularly irregular hr ABDOMEN: Soft, nondistended, nontender; no hepatosplenomegaly; bowel sounds are present in all four quadrants. EXTREMITIES: No clubbing, cyanosis, or edema. SKIN: Normal; no rash; no jaundice. SYNTHETIC PLASTERER: awake, intubated. Assessment and Plan Plan ASSESSMENT: - Nausea and vomiting with biliary dilatation on CT. Pt with known SCLC with metastatic disease to the liver. She is receiving palliative tx and based on CTA (04/07), she has had reduction in size of left hepatic lobe metastasis. She was extubated and started having intractable nausea and vomiting. Abdomen/Pelvis CT (04/15/17)---- > 1. Biliary dilatation as described above. 2. Mass is again identified laterally in the right lobe. Central mass seen previously is poorly demonstrated on today's exam because of phase of the contrast. 3. Gallstones around a contracted gallbladder. Of note, on bowel regimen. + BM. LFT 0.5, AST 38, ALT 94, Alk Phosph 51 yesterday. - Cholelithiasis with contracted gallbladder. MRCP 04-16-17 --> unremarkable exam of biliary tree, no evidence ductal dilatation, cholelithiasis, indeterminate lesiosn in liver as described above, malignancy is not excluded, administration of contrast would be helpful to further delineate these abnormalities. Consider MRI w/ contrast. - Elevated LFTs secondary to above. ALT elevated 95. - Pancytopenia, likely related to chemotherapy. - SCLC with metastatic disease to the liver. Dx January 2017. Recently started palliative chemotherapy with carboplatin and etoposide earlier this month. Oncology following. - Resp. Failure, COPD, Emphysema. Extubated, but required reintubation yesterday and TODAY - HTN, Dysplipidemia, Atrial fibrillation. Per [facility] PLAN: - Tube feeding - Cont. bowel regimen This pt see by myself and Dr Villanueva and this note is written on his behalf Joanna Shine April 18, 2017 12:47
[2017-04-18 16:27] LABS: BLOOD, URINE NEG (NEG); GLUCOSE,URINE NEG (NEG); HYALINE CAST, URINE 1 /lpf (RARE); KETONE, URINE NEG (NEG); MUCUS URINE FEW /lpf (OCC); NITRITE,URINE NEG (NEG); PH, URINE 7.5 (5.0-8.5); URINE COLOR YELLOW (YELLW/STRAW)
[2017-04-18 16:28] LABS: COMMENT (UR) CATH-CULT NOT IND; CULTURE IF INDICATED CATH CULTURE NOT IND
--- NOTE | 2017-04-18 21:36 | MB ---
cc: EMY HOLDER M.D. DATE OF CONSULTATION 04/18/2017 REASON FOR CONSULTATION Percutaneous tracheostomy placement. HISTORY OF PRESENT ILLNESS The patient is a 51-year-old female with small cell lung cancer with extensive liver metastasis 2 months ago. The patient was started on palliative carboplatin and etoposide on March 08. The patient had a second cycle of chemotherapy on WednesdayApril 14. The patient became extremely short of breath and has been intubated. The patient was attempted to be in extubated at least twice according to the nursing staff and has failed this. Given this problem we have been asked to consider the patient to undergo tracheostomy placement. PAST MEDICAL HISTORY Significant for: 1. Anxiety history. 2. Hypertension. 3. Chronic obstructive pulmonary disease on home O2. PAST SURGICAL HISTORY Past surgeries include: 1. Tubal ligation in the past. 2. [id number] placement on the right side. SOCIAL HISTORY The patient does not drink. One-half pack per day smoking history for 40 years. She does not use other substances. ALLERGIES THE PATIENT HAS A PROBLEM WITH VALIUM WHICH CAUSES HIVES AND A HISTORY OF MRSA WITH SCREEN POSITIVE. MEDICATIONS ON ADMISSION Included: 1. Lipitor 20 mg q.h.s. 2. Atrovent inhaler 2 puffs q.i.d. 3. Spiriva inhaler q. day. 4. Cardizem 60 mg p.o. q.i.d. PHYSICAL EXAMINATION GENERAL: Physical exam reveals a female who is lying quietly in the bed but is awake and responsive. VITAL SIGNS: BP 107/69, pulse 85, respirations 14, temperature 97.9. HEENT: Sclerae anicteric. Pupils are reactive. CHEST: Has decreased breath sounds bilaterally but no wheezing or rhonchi. ABDOMEN: Soft and nontender. NECK: Slightly puffy but trachea is easily palpated. EXTREMITIES: Pulses are present. NEUROLOGIC: Examination is nonfocal. The patient is able to follow commands. LABORATORY DATA WBC is 1.7, hemoglobin 8.7, hematocrit 26.3, platelets 63,000 down from 187,000 four days ago. Chemistries, BUN 15, creatinine 0.32. Glucose 206. ASSESSMENT Respiratory failure requiring intubation and failed extubation more than once. It is reasonable to proceed with tracheostomy, but given the patient's current pancytopenia, would like to wait until she rebounds as it is not urgent or emergent to have the tracheostomy placed. I have discussed this with the patient but will hold off on any procedures for the current time. Thank you Dr. Connor for asking us to see this individual. MD FRITZ Patiño/KK /7:32 PM /9:30 PM WISAM
[2017-04-19] VITALS (38 sets, daily range): BP systolic 90–138; BP diastolic 60–81; PULSE 85–118; RESP 4–17; TEMP 98–98.6; O2SAT 98–100
[2017-04-19] MEDS: PROPOFOL 1000 MG/100 ML INJ 100 ML IV SCH ×4 (03:58→18:50)
[2017-04-19] MEDS: INSULIN ASPART SUPPLEMENTAL SCALE SQ SCH ×7 (04:00→23:08)
[2017-04-19] MEDS: RESP: ALBUTEROL 2.5 MG/IPRATROPIUM 0.5 MG NEB (SCH) NEB ×4 (04:10→14:40)
[2017-04-19] MEDS: methylPREDNISolone SOD SUCC 125 MG/2 ML VIAL IVP SCH ×3 (05:46→21:51)
[2017-04-19] MEDS: DILTIAZEM HCL 60 MG TAB PO SCH ×2 (05:46→12:00)
[2017-04-19] MEDS: METOCLOPRAMIDE HCL 10 MG/2 ML VIAL IV PUSH SCH ×3 (05:46→21:51)
--- NOTE | 2017-04-19 05:58 | RADRPT ---
EXAM DATE/TIME: 04/19/2017 03:51 [facility] COMPARISON: CHEST SINGLE AP, April 17, 2017, 12:44. INDICATIONS : Shortness of breath, possible pulmonary disease. MEDICAL HISTORY : Carcinoma, lung. Hypertension Chronic obstructive pulmonary disease. SURGICAL HISTORY : Tubal ligation. ENCOUNTER: Subsequent ACUITY: 1 week PAIN SCORE: Non-responsive. LOCATION: Bilateral chest FINDINGS: Lines and tubes are present not significantly changed. The lungs are clear without infiltrate, nodule , or mass. There is no appreciable pleural effusion for technique. Heart and mediastinum are unrema rkable. CONCLUSION: No acute cardiopulmonary disease. Therese Javier MD on April 19, 2017 at 5:56 Board Certified Radiologist. This report was verified electronically.
[2017-04-19 06:15] LABS: MEAN CELL VOLUME 86.9 FL (80.0-100.0); MEAN CORPUSCULAR HEMOGLOBIN 29.5 PG (27.0-34.0); MEAN CORPUSCULAR HGB CONC 33.9 % (32.0-36.0); PLATELET COUNT 42 TH/MM3 (150-450); RED BLOOD COUNT 2.99 MIL/MM3 (4.00-5.30); RED CELL DISTRIBUTION WIDTH 18.2 % (11.6-17.2); WHITE BLOOD COUNT 2.3 TH/MM3 (4.0-11.0)
[2017-04-19 06:31] LABS: REVIEW FLAG FINAL
[2017-04-19 06:44] LABS: POTASSIUM 3.5 MEQ/L (3.5-5.1)
[2017-04-19 06:50] LABS: INTERNATIONAL NORMALIZED RATIO 0.9 RATIO; PROTHROMBIN TIME - PATIENT 9.8 SEC (9.8-11.6)
[2017-04-19 06:52] LABS: APTT (PATIENT) 20.7 SEC (24.3-30.1)
--- NOTE | 2017-04-19 08:21 | HHI.CCPN ---
Subjective Remarks/Hospital Course 51-year-old female with past medical history of small cell lung cancer with liver metastases diagnosed in January 2017, tobacco abuse. She has been on palliative chemotherapy since March 08. She presented to [facility] emergency department on 04/07/17 with shortness of breath and has been treated for COPD exacerbation with nebs, Solu-Medrol, cefepime and azithromycin. She was placed on BiPAP and initially had some response. However she refused BiPAP and has becoming progressively lethargic through the course of the evening. An ABG was obtained and she has acute hypercapnic respiratory failure with pH 7.12/PaCO2 116/PA O2 of 101. Her RN discussed code status with her earlier and patient stated "intubate me if I need it". Further history is limited due to patient's altered mental status secondary to hypercapnic respiratory failure. CTA 04/07 was negative for pulmonary embolism. 04/08: CPAP trials attempted patient extremely anxious, unsuccessful. Plan to to transition to Precedex infusion for CPAP trials and weaning. ABG this a.m. 7.34/63/205/34/7.9, but patient gets extremely anxious when CPAP trials were initiated. 04/09 Patient is sedated with Diprivan and intubated. Afebrile. 04/10:Afebrile. Notably anxious this afternoon. Patient placed on Precedex infusion CPAP trials initiated. 04/11: Continue attempts at CPAP trials, one Precedex unsuccessful. Patient becomes extremely anxious despite Xanax. Patient now continues on propofol sedation for mechanical ventilation synchrony. 04/12: Medications readjusted today the patient continues on CPAP trials greater than 6 hours. Sodium level was noted to continue to be elevated free water flushes added to medication regimen. Off sedation the patient continues to be a GCS of 11 T. 04/13: Lasted only 10 minutes on PSV trial today. Continues to be on propofol and fentanyl drips for vent synchrony. Tolerating tube feeding. Positive BM. 04/14: Resting in bed. Currently not tolerating PSV trials. Arousable. Moves all 4 extremities spontaneously. No bowel movement. 04/15: Seen with Dr. Zhu. No acute distress. Awake and alert and following commands. Currently afebrile. 04/16: Attempt x-rays yesterday. Lasted 2 hours before reintubation. Intractable nausea and vomiting. CT abdomen pelvis 04/15 revealed ductal dilatation is contracted gallbladder with stone. LFTs slightly elevated. Recheck in this AM. Arousable and follows commands on the ventilator. Positive BM overnight. 04/17: Attempt extubation. Lasted 15 minutes before reintubation due to distress. Saturations okay but "cannot catch breath". FiO2 30% and had excellent RSBI of around 30 and nif of -47. Vocal cords looked normal. Subjective: 04/18: Currently resting in bed with FiO2 30%. Afebrile. Tolerating tube feeds. No changes past 24 hours. Platelets are trending downward. Lovenox held and heparin antibody sent 04/19 Patient remains sedated with Diprivan and intubated. Afebrile. Tolerating tube feeds. Objective Vital Signs Date Time Temp Pulse Resp B/P Pulse Ox O2 Delivery O2 Flow Rate FiO2 04/19/17 06:00 97 04/19/17 04:10 100 30 04/19/17 04:00 98.0 4 92/62 04/17/17 12:28 Nasal Cannula 5.00 Intake and Output 04/18/17 04/18/17 04/19/17 08:00 16:00 00:00 Intake Total 1257 ml 1340 ml 762 ml Output Total 1700 ml 2400 ml 1200 ml Balance -443 ml -1060 ml -438 ml Result Diagram: 04/19/17 0450 04/19/17 0450 Other Results Laboratory Tests Test 04/18/17 04/19/17 15:45 04:50 Urine Color YELLOW Urine Turbidity HAZY Urine pH 7.5 Urine Specific [place] 1.027 Urine Protein 30 mg/dL Urine Glucose (UA) NEG mg/dL Urine Ketones NEG mg/dL Urine Occult Blood NEG Urine Nitrite NEG Urine Bilirubin NEG Urine Urobilinogen LESS THAN 2.0 MG/DL Urine Leukocyte Esterase NEG Urine RBC 31 /hpf Urine WBC 2 /hpf Urine Hyaline Casts 1 /lpf Urine Mucus FEW /lpf Urine Yeast with Hyphae OCC Urine Yeast (Budding) MANY Microscopic Urinalysis Comment CATH-CULT NOT IND White Blood Count 2.3 TH/MM3 Red Blood Count 2.99 MIL/MM3 Hemoglobin 8.8 GM/DL Hematocrit 26.0 % Mean Corpuscular Volume 86.9 FL Mean Corpuscular Hemoglobin 29.5 PG Mean Corpuscular Hemoglobin 33.9 % Concent Red Cell Distribution Width 18.2 % Platelet Count 42 TH/MM3 Mean Platelet Volume 8.7 FL Prothrombin Time 9.8 SEC Prothromb Time International 0.9 RATIO Ratio Activated Partial 20.7 SEC Thromboplast Time Sodium Level 146 MEQ/L Potassium Level 3.5 MEQ/L Chloride Level 104 MEQ/L Carbon Dioxide Level 35.0 MEQ/L Anion Gap 7 MEQ/L Blood Urea Nitrogen 18 MG/DL Creatinine 0.47 MG/DL Estimat Glomerular Filtration 140 ML/MIN Rate Random Glucose 175 MG/DL Calcium Level 8.3 MG/DL Imaging Last Impressions Chest X-Ray 04/19/17 0600 Signed Impressions: Service Date/Time: Wednesday, April 19, 2017 03:51 - CONCLUSION: No acute cardiopulmonary disease. Therese Javier MD Cholangiopancreatography MRI 04/16/17 0000 Signed Impressions: Service Date/Time: Sunday, April 16, 2017 09:35 - CONCLUSION: 1. Unremarkable examination of the biliary tree. No evidence of ductal dilatation. 2. Cholelithiasis 3. Indeterminate lesions in liver as described above. Malignancy is not excluded. Administration of contrast would be helpful to further delineate these abnormalities Son Bryson MD Abdomen/Pelvis CT 04/15/17 0000 Signed Impressions: Service Date/Time: March 17:45 - CONCLUSION: 1. Biliary dilatation as described above. 2. Mass is again identified laterally in the right lobe. Central mass seen previously is poorly demonstrated on today's exam because of phase of the contrast. 3. Gallstones around a contracted gallbladder. Fred Vieyra MD FACR Abdomen X-Ray 04/15/17 0000 Signed Impressions: Service Date/Time: March 13:34 - CONCLUSION: Normal examination. Tomasz New MD CT Angiography 04/07/17 0031 Signed Impressions: Service Date/Time: Friday, April 07, 2017 01:13 - CONCLUSION: 1. No pulmonary emboli. 2. Reduction in size of the mediastinal and hilar adenopathy. 3. Reduction in size of the left hepatic lobe metastasis. 4. Severe emphysematous changes. Roberth Lockett Jr., MD Objective Remarks GENERAL: 51-year-old female, critically ill orotracheally intubated currently resting in bed in no acute distress SKIN: Warm and dry. No rash HEAD: Normocephalic. EYES: Pupils equally round and reactive about 3 mm bilaterally No scleral icterus. No injection or drainage. NECK: Supple, trachea midline. No JVD or lymphadenopathy. CARDIOVASCULAR: Regular rate and rhythm , S2 no S4. Without murmurs, gallops, or rubs. RESPIRATORY: Diminished breath sounds throughout lung mathis. No wheezing appreciated. GASTROINTESTINAL: Abdomen soft, non-tender, nondistended. Active bowel sounds MUSCULOSKELETAL: No new skin peripheral edema. Right port site is clean dry and intact without bleeding or erythema Neuro: Off sedation, Follows commands moves extremities 4 Date of Insertion: April 07, 2017 A/P Assessment and Plan NEURO/PSYCH: Anxiety disorder NOS On Diprivan infusion for sedation. Daily sedation vacation. RASS target -2 RESP: Acute hypercapnic respiratory failure COPD exacerbation Severe emphysematous COPD [facility] 14/12/03/29 Ventilator bundle DuoNeb therapy every 4 hours with albuterol nebs every 2 hours when necessary Wean FiO2 keep sats greater or equal to 92% SBT daily as prasanna. Continue Solu-Medrol 40 mg IV every 8 hours Pulmonology following, Dr. Zhu CTA 04/07 significant/severe pulmonary emphysema, decreasing mediastinal lymphadenopathy. Decrease in size of hepatic mass Home medications are Spiriva 18 V daily Atrovent HFA 2 puffs 4 times a day PFTs 04/13 revealed FVC 1.3. FEV1 0.5. 38% reversibility with bronchodilator. Severe airway obstruction. Lasted 2 hours extubation 04/15 and 15 minutes with extubation 04/17. Surgery consulted for tracheostomy- awaiting improvements of pancytopenia prito to trach. CXT today- No acute disease CV: Hypertension Dyslipidemia History of atrial fibrillation Monitor HR and BP keep MAP>65mmHg Continue Cardizem 60 mg by mouth every 6 hours /home medication Currently holding Lipitor 20 mg daily/home medication for elevated LFT's 2-D echo 02/12 revealed EF 55-60%. No regional wall motion abnormality. GI: Mild protein calorie malnutrition CT abdomen/pelvis 04/15 Revealed contracted gallbladder. Ductal dilatation biliary system/pancreas noted MRCP essentially normal. GI is following Jevity 1.5 65 mL per hour Prevacid for GI prophylaxis Colace/Senokot twice a day for bowel regimen /Renal: Monitor renal function I/O's, electrolytes replacement per protocol. ID: Completed cefepime and azithromycin course. Monitor for signs of infections ( Fever, WBC) blood and urine culture- NGTD Follow up on blood cultures and sputum from 04/18 HEME/ONC: Small cell lung cancer with liver metastases on palliative chemotherapy Leukopenia Normocytic anemia Thrombocytopenia Monitor CBC Hematology following, Dr. Martinez Not a candidate for chemotherapy until extubated Noted consultation a palliative care per hematology yesterday. Remains full code Lovenox on hold. Follow up on Hit panel ENDO: Acute hyperglycemia of critical illness On Low-dose insulin sliding scale every 4 hours. Access - Right Port-A-Cath Prophylaxis - GI -Prevacid - DVT - SCD/Lovenox sq on hold Critical Care: The total critical care time was 30 minutes. Time to perform other separately billable procedures was not included in the critical care time. . Kareem Schmitz MD April 19, 2017 08:21
[2017-04-19] MEDS: LANSOPRAZOLE SOLUTAB 30 MG TAB NG SCH (08:40)
[2017-04-19] MEDS: CHLORHEXIDINE 0.12% (ORAL KIT) 15 ML CUP MT SCH ×2 (08:40→21:55)
[2017-04-19] MEDS: SODIUM CHLORIDE 0.9% FLUSH 10 ML FLUSH IV FLUSH SCH ×2 (08:42→21:00)
[2017-04-19] MEDS ORDERED: POLYETHYLENE GLYCOL 17 GM PKG PO SCH (09:00)
[2017-04-19] MEDS ORDERED: SENNOSIDES SYRUP 8.8 MG/5 ML CUP PO SCH (09:00)
--- NOTE | 2017-04-19 12:03 | HHI.PR ---
Subjective Interval History remains intubated off sedation awake alert, following commands no fever no family at bed side Vitals/Results Intake & Output 04/18/17 04/18/17 04/19/17 14:59 22:59 06:59 Intake Total 1340 ml 762 ml 684 ml Output Total 2400 ml 1200 ml 1150 ml Balance -1060 ml -438 ml -466 ml IV Total 900 ml 395 ml 389 ml Tube Feeding 240 ml 247 ml 235 ml Tube Irrigant 200 ml Other 120 ml 60 ml Output Urine Total 2400 ml 1200 ml 1150 ml # Bowel Movements 4 0 1 Vital Signs Vital Signs Date Time Temp Pulse Resp B/P Pulse Ox O2 Delivery O2 Flow Rate FiO2 04/19/17 11:56 100 30 04/19/17 09:22 100 30 04/19/17 06:00 97 04/19/17 04:10 100 30 04/19/17 04:00 98 04/19/17 04:00 98.0 98 4 92/62 100 04/19/17 04:00 30 04/19/17 03:40 93 14 90/64 100 04/19/17 03:20 95 14 94/65 100 04/19/17 03:00 101 14 90/67 100 04/19/17 02:40 96 14 94/64 100 04/19/17 02:20 96 10 100/64 100 04/19/17 02:00 98 04/19/17 02:00 98 14 97/64 100 04/19/17 01:45 98 04/19/17 01:40 99 04/19/17 01:40 99 16 115/73 100 04/19/17 01:30 92 04/19/17 01:20 90 14 118/67 100 04/19/17 01:20 90 04/19/17 01:15 94 04/19/17 01:00 94 13 120/74 100 04/19/17 01:00 94 04/19/17 00:45 95 04/19/17 00:40 99 16 138/81 100 04/19/17 00:40 99 04/19/17 00:30 92 04/19/17 00:20 92 14 101/69 100 04/19/17 00:20 92 04/19/17 00:15 87 04/19/17 00:00 85 04/19/17 00:00 30 04/19/17 00:00 98.6 85 14 106/66 100 04/19/17 00:00 85 10 106/66 100 04/18/17 23:50 100 30 04/18/17 22:00 83 04/18/17 20:09 100 30 04/18/17 20:00 98.2 89 14 106/71 100 04/18/17 20:00 89 04/18/17 20:00 30 04/18/17 18:00 99 04/18/17 16:00 97.9 85 14 107/69 100 04/18/17 16:00 85 04/18/17 16:00 30 04/18/17 15:44 98 30 04/18/17 14:00 87 04/18/17 13:02 100 30 CBC/BMP: 04/19/17 0450 04/19/17 0450 Lab Results Laboratory Tests Test 04/18/17 04/19/17 15:45 04:50 Urine Color YELLOW Urine Turbidity HAZY Urine pH 7.5 Urine Specific [place] 1.027 Urine Protein 30 mg/dL Urine Glucose (UA) NEG mg/dL Urine Ketones NEG mg/dL Urine Occult Blood NEG Urine Nitrite NEG Urine Bilirubin NEG Urine Urobilinogen LESS THAN 2.0 MG/DL Urine Leukocyte Esterase NEG Urine RBC 31 /hpf Urine WBC 2 /hpf Urine Hyaline Casts 1 /lpf Urine Mucus FEW /lpf Urine Yeast with Hyphae OCC Urine Yeast (Budding) MANY Microscopic Urinalysis Comment CATH-CULT NOT IND White Blood Count 2.3 TH/MM3 Red Blood Count 2.99 MIL/MM3 Hemoglobin 8.8 GM/DL Hematocrit 26.0 % Mean Corpuscular Volume 86.9 FL Mean Corpuscular Hemoglobin 29.5 PG Mean Corpuscular Hemoglobin 33.9 % Concent Red Cell Distribution Width 18.2 % Platelet Count 42 TH/MM3 Mean Platelet Volume 8.7 FL Prothrombin Time 9.8 SEC Prothromb Time International 0.9 RATIO Ratio Activated Partial 20.7 SEC Thromboplast Time Sodium Level 146 MEQ/L Potassium Level 3.5 MEQ/L Chloride Level 104 MEQ/L Carbon Dioxide Level 35.0 MEQ/L Anion Gap 7 MEQ/L Blood Urea Nitrogen 18 MG/DL Creatinine 0.47 MG/DL Estimat Glomerular Filtration 140 ML/MIN Rate Random Glucose 175 MG/DL Calcium Level 8.3 MG/DL Microbiology Microbiology 04/18/17 Gram Stain - Final, Resulted 04/18/17 Sputum Culture, Resulted Pending Physical Exam General General Appearance: Well Developed, Well Nourished, No Acute Distress, Comfortable Appearance Remarks intubated Eyes Eye Exam: Pupils Equal, Pupils Reactive Ears & Nose Ears & Nose Exam: Nasal Mucosa [place] Throat Throat Exam: Oral Mucosa [place] & Moist Neck Neck Exam: Neck Supple, Trachea Midline Pulmonary Resp Exam: No Distress, Decreased Bases Cardiology CV Exam: Good Perfusion, Tachycardia Gastrointestinal/Abdomen GI Exam: Soft, Non-Tender, Bowel Sounds Present, Distended Genitourinary Exam: Clear Urine Musculoskeletal MS Exam: Joints Intact Integumentary Skin Exam: Warm, Dry Extremeties Extremities Exam: Pedal Pulses Palpable, Trace Edema VTE Prophylaxis VTE Prophylaxis Meds: Lovenox Assessment/Plan Problem List: (1) Hypercapnic respiratory failure (2) Acute exacerbation of chronic obstructive pulmonary disease (COPD) (3) SCLC (small cell lung carcinoma) Plan: with liver mets (4) Hyperglycemia (5) Depression (6) A-fib (7) Hypertension Assessment/Plan Vent Management management as per pulmonary/critical care off sedation for now following commands plan for trach soon, procedure postponed sec to Low platelets Duonebs IV steroids empiric antibiotics cultures negative oncology following, input appreciated CT PE protocol reviewed reduction in size of mediastinal and hilar adenopathy. An reduction in size of left hepatic lobe metastasis. Severe emphysematous changes. no chemotherapy plans at this time, hospice recommended Leukopenia, monitor WBC continue tube feeding Bowel regimen Anemia post hydration will monitor hx afib, continue Cardizem via OGT remains SR/ST Thrombocytopenia: monitor platelets 42 today no active bleeding HIT Panel pending SCD DVT prophylaxis Pepcid for GI prophylaxis Palliative care following, goals remains aggressive. Input appreciated CM for dc planning, select rehab, once trached Full code condition guarded Labs reviewed D/W RN Problem Qualifiers (1) Hypercapnic respiratory failure: Qualified Code: J96.02 - Acute respiratory failure with hypercapnia (2) SCLC (small cell lung carcinoma): Qualified Code: C34.90 - SCLC (small cell lung carcinoma), unspecified laterality (3) Depression: Qualified Code: F32.9 - Depression, unspecified depression type (4) A-fib: Qualified Code: I48.91 - Atrial fibrillation, unspecified type (5) Hypertension: Qualified Code: I10 - Essential hypertension Kaylyn Gregory MD April 19, 2017 12:03
--- NOTE | 2017-04-19 12:43 | HHI.GIFU ---
Subjective Remarks Pt resting in bed in NAD. On ventilator. (Joanna Shine) Objective Vitals I&O Vital Signs Date Time Temp Pulse Resp B/P Pulse Ox O2 Delivery O2 Flow Rate FiO2 04/19/17 11:56 100 30 04/19/17 09:22 100 30 04/19/17 06:00 97 04/19/17 04:10 100 30 04/19/17 04:00 98 04/19/17 04:00 98.0 98 4 92/62 100 04/19/17 04:00 30 04/19/17 03:40 93 14 90/64 100 04/19/17 03:20 95 14 94/65 100 04/19/17 03:00 101 14 90/67 100 04/19/17 02:40 96 14 94/64 100 04/19/17 02:20 96 10 100/64 100 04/19/17 02:00 98 04/19/17 02:00 98 14 97/64 100 04/19/17 01:45 98 04/19/17 01:40 99 04/19/17 01:40 99 16 115/73 100 04/19/17 01:30 92 04/19/17 01:20 90 14 118/67 100 04/19/17 01:20 90 04/19/17 01:15 94 04/19/17 01:00 94 13 120/74 100 04/19/17 01:00 94 04/19/17 00:45 95 04/19/17 00:40 99 16 138/81 100 04/19/17 00:40 99 04/19/17 00:30 92 04/19/17 00:20 92 14 101/69 100 04/19/17 00:20 92 04/19/17 00:15 87 04/19/17 00:00 85 04/19/17 00:00 30 04/19/17 00:00 98.6 85 14 106/66 100 04/19/17 00:00 85 10 106/66 100 04/18/17 23:50 100 30 04/18/17 22:00 83 04/18/17 20:09 100 30 04/18/17 20:00 98.2 89 14 106/71 100 04/18/17 20:00 89 04/18/17 20:00 30 04/18/17 18:00 99 04/18/17 16:00 97.9 85 14 107/69 100 04/18/17 16:00 85 04/18/17 16:00 30 04/18/17 15:44 98 30 04/18/17 14:00 87 04/18/17 13:02 100 30 I/O 04/18/17 04/18/17 04/18/17 04/19/17 04/19/17 04/19/17 07:00 15:00 23:00 07:00 15:00 23:00 Intake Total 1257 ml 1340 ml 762 ml 684 ml Output Total 1700 ml 2400 ml 1200 ml 1150 ml Balance -443 ml -1060 ml -438 ml -466 ml IV Total 876 ml 900 ml 395 ml 389 ml Tube Feeding 221 ml 240 ml 247 ml 235 ml Tube Irrigant 60 ml 200 ml Other 100 ml 120 ml 60 ml Output Urine Total 1700 ml 2400 ml 1200 ml 1150 ml # Bowel Movements 1 4 0 1 Laboratory Laboratory Tests Test 04/18/17 04/19/17 15:45 04:50 Urine Color YELLOW Urine Turbidity HAZY Urine pH 7.5 Urine Specific [place] 1.027 Urine Protein 30 Urine Glucose (UA) NEG Urine Ketones NEG Urine Occult Blood NEG Urine Nitrite NEG Urine Bilirubin NEG Urine Urobilinogen LESS THAN 2.0 Urine Leukocyte Esterase NEG Urine RBC 31 Urine WBC 2 Urine Hyaline Casts 1 Urine Mucus FEW Urine Yeast with Hyphae OCC Urine Yeast (Budding) MANY Microscopic Urinalysis Comment CATH-CULT NOT IND White Blood Count 2.3 Red Blood Count 2.99 Hemoglobin 8.8 Hematocrit 26.0 Mean Corpuscular Volume 86.9 Mean Corpuscular Hemoglobin 29.5 Mean Corpuscular Hemoglobin 33.9 Concent Red Cell Distribution Width 18.2 Platelet Count 42 Mean Platelet Volume 8.7 Prothrombin Time 9.8 Prothromb Time International 0.9 Ratio Activated Partial 20.7 Thromboplast Time Sodium Level 146 Potassium Level 3.5 Chloride Level 104 Carbon Dioxide Level 35.0 Anion Gap 7 Blood Urea Nitrogen 18 Creatinine 0.47 Estimat Glomerular Filtration 140 Rate Random Glucose 175 Calcium Level 8.3 Date/Time Procedure Status Source Growth 04/18/17 16:27 Gram Stain - Final Resulted Sputum Expectorated Sputum 04/18/17 16:27 Sputum Culture Resulted Sputum Expectorated Sputum Pending 04/18/17 11:05 Aerobic Blood Culture - Preliminary Resulted Blood Peripheral NO GROWTH IN 1 DAY 04/18/17 11:05 Anaerobic Blood Culture - Preliminary Resulted Blood Peripheral NO GROWTH IN 1 DAY Imaging Last Impressions Chest X-Ray 04/19/17 0600 Signed Impressions: Service Date/Time: Wednesday, April 19, 2017 03:51 - CONCLUSION: No acute cardiopulmonary disease. Therese Javier MD Cholangiopancreatography MRI 04/16/17 0000 Signed Impressions: Service Date/Time: Sunday, April 16, 2017 09:35 - CONCLUSION: 1. Unremarkable examination of the biliary tree. No evidence of ductal dilatation. 2. Cholelithiasis 3. Indeterminate lesions in liver as described above. Malignancy is not excluded. Administration of contrast would be helpful to further delineate these abnormalities Son Bryson MD Abdomen/Pelvis CT 04/15/17 0000 Signed Impressions: Service Date/Time: March 17:45 - CONCLUSION: 1. Biliary dilatation as described above. 2. Mass is again identified laterally in the right lobe. Central mass seen previously is poorly demonstrated on today's exam because of phase of the contrast. 3. Gallstones around a contracted gallbladder. Fred Vieyra MD FACR Abdomen X-Ray 04/15/17 0000 Signed Impressions: Service Date/Time: March 13:34 - CONCLUSION: Normal examination. Tomasz New MD CT Angiography 04/07/17 0031 Signed Impressions: Service Date/Time: Friday, April 07, 2017 01:13 - CONCLUSION: 1. No pulmonary emboli. 2. Reduction in size of the mediastinal and hilar adenopathy. 3. Reduction in size of the left hepatic lobe metastasis. 4. Severe emphysematous changes. Roberth Lockett Jr., MD Physical Exam HEENT: EOMI; normocephalic; atraumatic; no jaundice. CHEST: Chest is clear to auscultation and percussion. CARDIAC: irregularly irregular hr ABDOMEN: Soft, nondistended, nontender; no hepatosplenomegaly; bowel sounds are present in all four quadrants. EXTREMITIES: No clubbing, cyanosis, or edema. SKIN: Normal; no rash; no jaundice. COMPOUNDER: awake, intubated. (Joanna Shine) Assessment and Plan Plan ASSESSMENT: - Nausea and vomiting with biliary dilatation on CT. Pt with known SCLC with metastatic disease to the liver. She is receiving palliative tx and based on CTA (04/07), she has had reduction in size of left hepatic lobe metastasis. She was extubated and started having intractable nausea and vomiting. Abdomen/Pelvis CT (04/15/17)---- > 1. Biliary dilatation as described above. 2. Mass is again identified laterally in the right lobe. Central mass seen previously is poorly demonstrated on today's exam because of phase of the contrast. 3. Gallstones around a contracted gallbladder. Of note, on bowel regimen. + BM. LFT 0.5, AST 38, ALT 94, Alk Phosph 51 yesterday. - Cholelithiasis with contracted gallbladder. MRCP 04-16-17 --> unremarkable exam of biliary tree, no evidence ductal dilatation, cholelithiasis, indeterminate lesiosn in liver as described above, malignancy is not excluded, administration of contrast would be helpful to further delineate these abnormalities. Consider MRI w/ contrast. - Elevated LFTs secondary to above. ALT elevated 95. - Pancytopenia, likely related to chemotherapy. - SCLC with metastatic disease to the liver. Dx January 2017. Recently started palliative chemotherapy with carboplatin and etoposide earlier this month. Oncology following. - Resp. Failure, COPD, Emphysema. Extubated, but required reintubation yesterday and TODAY - HTN, Dysplipidemia, Atrial fibrillation. Per [facility] PLAN: - Tube feeding - d/c bowel regimen - will continue to monitor This pt see by myself and Dr Villanueva and this note is written on his behalf (Joanna ShineP) Physician Comments Patient seen and examined Agree with above Continue with current supportive care Monitor labs Not much to add from a GI perspective at this point in time and with the patient having poor prognosis, we will sign off (Gigi Chinchilla MD) Joanna Shine April 19, 2017 12:43 Gigi Chinchilla MD April 19, 2017 20:02
[2017-04-19] MEDS ORDERED: POLYETHYLENE GLYCOL 17 GM PKG PO PRN (12:45)
[2017-04-19] MEDS ORDERED: SENNOSIDES SYRUP 8.8 MG/5 ML CUP PO PRN (12:45)
--- NOTE | 2017-04-19 14:36 | PD.ONC.PN ---
Subjective Subjective Remarks Afebrile overnight. Patient intubated, sedated. Objective Data Date Time Temp Pulse Resp B/P Pulse Ox O2 Delivery O2 Flow Rate FiO2 04/19/17 11:56 100 30 04/19/17 09:22 100 30 04/19/17 06:00 97 04/19/17 04:10 100 30 04/19/17 04:00 98 04/19/17 04:00 98.0 98 4 92/62 100 04/19/17 04:00 30 04/19/17 03:40 93 14 90/64 100 04/19/17 03:20 95 14 94/65 100 04/19/17 03:00 101 14 90/67 100 04/19/17 02:40 96 14 94/64 100 04/19/17 02:20 96 10 100/64 100 04/19/17 02:00 98 04/19/17 02:00 98 14 97/64 100 04/19/17 01:45 98 04/19/17 01:40 99 04/19/17 01:40 99 16 115/73 100 04/19/17 01:30 92 04/19/17 01:20 90 14 118/67 100 04/19/17 01:20 90 04/19/17 01:15 94 04/19/17 01:00 94 13 120/74 100 04/19/17 01:00 94 04/19/17 00:45 95 04/19/17 00:40 99 16 138/81 100 04/19/17 00:40 99 04/19/17 00:30 92 04/19/17 00:20 92 14 101/69 100 04/19/17 00:20 92 04/19/17 00:15 87 04/19/17 00:00 85 04/19/17 00:00 30 04/19/17 00:00 98.6 85 14 106/66 100 04/19/17 00:00 85 10 106/66 100 04/18/17 23:50 100 30 04/18/17 22:00 83 04/18/17 20:09 100 30 04/18/17 20:00 98.2 89 14 106/71 100 04/18/17 20:00 89 04/18/17 20:00 30 04/18/17 18:00 99 04/18/17 16:00 97.9 85 14 107/69 100 04/18/17 16:00 85 04/18/17 16:00 30 04/18/17 15:44 98 30 04/19/17 04/19/17 04/19/17 06:59 14:59 22:59 Intake Total 684 ml Output Total 1150 ml Balance -466 ml Result Diagram: 04/19/17 0450 04/19/17 0450 Laboratory Results Laboratory Tests Test 04/18/17 04/19/17 15:45 04:50 Urine Color YELLOW Urine Turbidity HAZY Urine pH 7.5 Urine Specific [place] 1.027 Urine Protein 30 mg/dL Urine Glucose (UA) NEG mg/dL Urine Ketones NEG mg/dL Urine Occult Blood NEG Urine Nitrite NEG Urine Bilirubin NEG Urine Urobilinogen LESS THAN 2.0 MG/DL Urine Leukocyte Esterase NEG Urine RBC 31 /hpf Urine WBC 2 /hpf Urine Hyaline Casts 1 /lpf Urine Mucus FEW /lpf Urine Yeast with Hyphae OCC Urine Yeast (Budding) MANY Microscopic Urinalysis Comment CATH-CULT NOT IND White Blood Count 2.3 TH/MM3 Red Blood Count 2.99 MIL/MM3 Hemoglobin 8.8 GM/DL Hematocrit 26.0 % Mean Corpuscular Volume 86.9 FL Mean Corpuscular Hemoglobin 29.5 PG Mean Corpuscular Hemoglobin 33.9 % Concent Red Cell Distribution Width 18.2 % Platelet Count 42 TH/MM3 Mean Platelet Volume 8.7 FL Prothrombin Time 9.8 SEC Prothromb Time International 0.9 RATIO Ratio Activated Partial 20.7 SEC Thromboplast Time Sodium Level 146 MEQ/L Potassium Level 3.5 MEQ/L Chloride Level 104 MEQ/L Carbon Dioxide Level 35.0 MEQ/L Anion Gap 7 MEQ/L Blood Urea Nitrogen 18 MG/DL Creatinine 0.47 MG/DL Estimat Glomerular Filtration 140 ML/MIN Rate Random Glucose 175 MG/DL Calcium Level 8.3 MG/DL Culture Results Microbiology Date/Time Procedure Status Source Growth 04/18/17 10:56 Aerobic Blood Culture - Preliminary Resulted Blood Peripheral NO GROWTH IN 1 DAY 04/18/17 10:56 Anaerobic Blood Culture - Preliminary Resulted Blood Peripheral NO GROWTH IN 1 DAY 04/18/17 11:05 Aerobic Blood Culture - Preliminary Resulted Blood Peripheral NO GROWTH IN 1 DAY 04/18/17 11:05 Anaerobic Blood Culture - Preliminary Resulted Blood Peripheral NO GROWTH IN 1 DAY 04/18/17 16:27 Gram Stain - Final Resulted Sputum Expectorated Sputum 04/18/17 16:27 Sputum Culture Resulted Sputum Expectorated Sputum Pending Imaging Studies Last 24 hours Impressions Chest X-Ray 04/19/17 0600 Signed Impressions: Service Date/Time: Wednesday, April 19, 2017 03:51 - CONCLUSION: No acute cardiopulmonary disease. Therese Javier MD Administered Medications Medications (Trade) Dose Ordered Sig/Rossana Route PRN Reason Start Time Stop Time Status Last Admin Dose Admin Sodium Chloride (NS Flush) 2 ml BID IV FLUSH 04/07/17 09:00 04/19/17 08:42 Sodium Chloride (NS Flush) 2 ml UNSCH PRN IV FLUSH FLUSH AFTER USING IV ACCESS 04/07/17 01:00 04/15/17 13:12 Enoxaparin Sodium (Lovenox Inj) 40 mg Q24H SQ 04/07/17 01:00 Hold 04/17/17 23:38 Ondansetron HCl (Zofran Inj) 4 mg Q6H PRN IV NAUSEA 04/07/17 01:00 04/15/17 12:16 Calcium Carbonate (Tums Chew) 1,000 mg TID PRN CHEW DYSPEPSIA 04/07/17 01:00 04/19/17 13:17 Famotidine (Pepcid) 20 mg BID PO 04/07/17 09:00 Hold 04/18/17 09:14 Miscellaneous Information Patient in critical care unit? Ass... [id number] .XX 04/07/17 02:30 04/07/17 02:30 Potassium Phosphate (K-Phos) 2,000 mg Q4H PRN PO For Phosphorus < 2.5 mg/dL 04/08/17 10:45 04/10/17 12:52 Methylprednisolone Sodium Succinate (SoluMEDROL INJ) 40 mg Q8HR IVP 04/13/17 14:00 04/19/17 05:46 Glycerin (Glycerin Adult Supp) 2 gm BID PRN RECTAL CONSTIPATION 04/14/17 21:00 04/16/17 00:29 Insulin Detemir (Levemir Inj) 12 units Q12HR SQ 04/15/17 09:00 Hold 04/15/17 08:47 Insulin Aspart (NovoLOG SUPPLEMENTAL SCALE) 1 Q4HR SQ 04/15/17 12:00 04/19/17 12:22 Nitroglycerin (Nitroglycerin 2% Oint) 2 inch Q6H PRN TOPICAL SBP>160, DBP>90 04/15/17 13:00 04/15/17 13:50 Hydralazine HCl (Apresoline Inj) 10 mg Q1H PRN IV PUSH SBP>160, DBP>90 04/15/17 13:00 04/15/17 13:12 Labetalol HCl (Trandate Inj) 10 mg Q1H PRN IV PUSH SBP>160, DBP>90, HR>65 04/15/17 13:00 04/15/17 13:49 Morphine Sulfate (Morphine Inj) 2 mg Q3H PRN IV PUSH PAIN SCALE 6 TO 10 04/15/17 13:00 04/15/17 13:01 Prochlorperazine Edisylate (Compazine Inj) 5 mg Q6H PRN IV PUSH nausea 04/15/17 13:00 04/15/17 13:11 Metoclopramide HCl (Reglan Inj) 5 mg Q8HR IV PUSH 04/15/17 14:00 04/19/17 05:46 Chlorhexidine Gluconate 15 ml 15 ml BID@08,20 MT 04/15/17 20:00 04/19/17 08:40 Propofol (Diprivan 1000 Mg/100ml Inj) 100 ml @ 0 mls/hr TITRATE IV 04/15/17 14:30 04/19/17 05:47 Lansoprazole (Prevacid Odt) 30 mg DAILY NG 04/19/17 09:00 04/19/17 08:40 Objective Remarks GENERAL: Middle aged female, intubated, supine in bed. SKIN: Warm and dry. HEAD: Normocephalic. EYES: No injection or drainage. NECK: Supple, trachea midline. CARDIOVASCULAR: +S1/S2, tachy RESPIRATORY: anterior mathis with occasional rhonchi. GASTROINTESTINAL: Abdomen soft nondistended. EXTREMITIES: No cyanosis NEUROLOGICAL: intubated but awake. Assessment/Plan Problem List: (1) SCLC (small cell lung carcinoma) Status: Chronic Plan: 04/19: remains intubated. prognosis poor. will call and speak with Yessenia , sister and set up a time to meet with palliative care. UPDATE: I spoke with Yessenia, the patient's sister and healthcare surrogate. will meet with her tomorrow at 10AM. Patient's daughter and other family members will be present. 04/16 was extubated yesterday. now reintubated after just 2 hrs. Had emesis. ? aspirated. Had Large BM per RN. Poor prognosis. Recommend hospice. 04/15: patient now extubated but having vomiting. will wait for PS to improve before resuming chemotherapy 04/14: Pt having low tidal volumes. No CPAP trials today. Palliative care consulted. She will not be a candidate for future chemo unless acute issues/ performance status significantly improves. 04/13: Pt did not tolerate CPAP trials today. Per RN last only 10 minutes. No chemo today. Continue IV Abx, steroids. 04/12: On Cefepime + solu-medrol. CPAP trials today. unable to resume chemo until current issues resolved 04/08/17: Continue supportive care with IV Abx, steroids. -- s/p C2 w/ carboplatin and etoposide on 04/05/17. Assessment 51 y/o female with history of small cell lung cancer admitted with COPD exacerbation. Attending Statement sedated, on vent. Needs trach, but plat are low.May give plat tx prior to trach. sister needs to decide withdrawl of life support. She has incurable mets lung ca. Her cancer is terminal. She can not have further chemo due to poor PS. I recommend hospice for BSC. The exam, history, and the medical decision-making described in the above note were completed with the assistance of the mid-level provider. I reviewed and agree with the findings presented. I attest that I had a [id number] encounter with the patient on the same day, and personally performed and documented my assessment and findings in the medical record. Problem Qualifiers (1) SCLC (small cell lung carcinoma): Qualified Code: C34.90 - SCLC (small cell lung carcinoma), unspecified laterality Margo Wan April 19, 2017 14:36 Alyssa Martinez MD April 19, 2017 17:11
--- NOTE | 2017-04-19 15:43 | HHI.HCPN ---
Reason for visit a. To assist with evaluation and management of symptoms including: shortness of breath, anxiety, pain b. To assist medical decision maker(s) with: better understanding of current medical conditions; weighing benefits/burdens of medical treatment options; making medical treatment decisions. . (Freda Nathan) Subjective/Interval History Ms. Hook is a 51 year old female with stage IV small cell lung cancer who presented to [facility] ED via EMS on 04/06/2017 and was subsequently admitted with acute COPD exacerbation. She has a past medical history is significant for COPD (on supplemental oxygen and nebulizers at home), anxiety disorder, atrial fibrillation and hypertension. Ms. Hook was diagnosed with SCLC with extensive liver metastasis in January,. Follow-up for symptom management, clarification of medical treatment goals. Patient is awake and alert, able to answer yes/no question by nodding or shaking her head. Afebrile. He denies pain when asked. She remains intubated on mechanical ventilator. FiO2 30%; Rate 15; PEEP 5; Tidal volume 700. Apparently attempted extubation again over the weekend (). Patient oxygen saturations remained stable, but she had to be reintubated after 15 minutes because she felt like she could catch her breath. Patient has consented to tracheostomy, initially planned for today but postponed secondary to platelets of 42. Recent lab work: = WBC: 2.3, hemoglobin 8.8, hematocrit 26.0, platelets 42 = Sodium: 46, potassium 3.5, chloride 104, carbon dioxide 35.0, glucose 175, calcium 8.3 = BUN: 18, creatinine 0.47, GFR 140 Patient continues to indicate aggressive goals and confirms that she is a FULL CODE. Family meeting scheduled tomorrow at 10 AM with Gladis MORSE, oncology . Family/friend interactions Family meeting tomorrow 04/20/2017 at 10 AM; Oncology will also be present. . (Freda Nathan) Advance Directives Health Care Surrogate: Copy in medical record (Freda Nathan) Advance Directive Specifics Date completed: 04/16/2017 . Health Care Surrogate(s): Patient's sister, Yessenia Prasad, is designated as the health care surrogate decision maker. . Documented care wishes: No documented care wishes are available. . Significant change in goals: Patient continues to indicate aggressive goals and desire to remain in FULL CODE. . (Freda Nathan) Objective Vital Signs Date Time Temp Pulse Resp B/P Pulse Ox O2 Delivery O2 Flow Rate FiO2 04/19/17 14:41 100 30 04/19/17 11:56 100 30 04/19/17 09:22 100 30 04/19/17 06:00 97 04/19/17 04:10 100 30 04/19/17 04:00 98 04/19/17 04:00 98.0 98 4 92/62 100 04/19/17 04:00 30 04/19/17 03:40 93 14 90/64 100 04/19/17 03:20 95 14 94/65 100 04/19/17 03:00 101 14 90/67 100 04/19/17 02:40 96 14 94/64 100 04/19/17 02:20 96 10 100/64 100 04/19/17 02:00 98 04/19/17 02:00 98 14 97/64 100 04/19/17 01:45 98 04/19/17 01:40 99 04/19/17 01:40 99 16 115/73 100 04/19/17 01:30 92 04/19/17 01:20 90 14 118/67 100 04/19/17 01:20 90 04/19/17 01:15 94 04/19/17 01:00 94 13 120/74 100 04/19/17 01:00 94 04/19/17 00:45 95 04/19/17 00:40 99 16 138/81 100 04/19/17 00:40 99 04/19/17 00:30 92 04/19/17 00:20 92 14 101/69 100 04/19/17 00:20 92 04/19/17 00:15 87 04/19/17 00:00 85 04/19/17 00:00 30 04/19/17 00:00 98.6 85 14 106/66 100 04/19/17 00:00 85 10 106/66 100 04/18/17 23:50 100 30 04/18/17 22:00 83 04/18/17 20:09 100 30 04/18/17 20:00 98.2 89 14 106/71 100 04/18/17 20:00 89 04/18/17 20:00 30 04/18/17 18:00 99 04/18/17 16:00 97.9 85 14 107/69 100 04/18/17 16:00 85 04/18/17 16:00 30 04/18/17 15:44 98 30 Intake & Output 04/19/17 04/19/17 06:59 18:59 Intake Total 1446 ml 1036 ml Output Total 2350 ml 750 ml Balance -904 ml 286 ml IV Total 784 ml 189 ml Tube Feeding 482 ml 607 ml Other 180 ml 240 ml Output Urine Total 2350 ml 750 ml # Bowel Movements 1 2 . Physical Exam CONSTITUTIONAL/GENERAL: This is an adequately nourished patient currently ntubated on mechanical ventilator TUBES/LINES/DRAINS: [id number] accessed, OGT, ETT, PIV 1, Reddy, soft restraints, SCDs SKIN: No jaundice, rashes, or lesions. Ecchymoses on upper extremities. No wounds seen anteriorly. Skin temperature appropriate. Not diaphoretic. HEAD: Atraumatic. Normocephalic. EYES: Pupils equal and round and reactive. No scleral icterus. No injection or drainage. Fundi not examined. ENT: ETT. OGT. Nose without bleeding or purulent drainage. NECK: Trachea midline. Supple, nontender. No palpable thyroid enlargement or nodularity. CARDIOVASCULAR: Regular rate and rhythm without murmurs, gallops, or rubs. No JVD. Peripheral pulses symmetric. RESPIRATORY/CHEST: Intubated on mechanical ventilator. Breath sounds diminished bilaterally. No wheezes, rales, or rhonchi. GASTROINTESTINAL: Abdomen firm, nontender. Bowel sounds present. OGT in place, tolerating tube feedings GENITOURINARY: Without palpable bladder distension. Reddy catheter in place. MUSCULOSKELETAL: Extremities without clubbing, cyanosis. LYMPHATICS: No palpable cervical or supraclavicular adenopathy. NEUROLOGICAL: Awake and alert; able to answer yes/no questions by nodding or shaking her head. PSYCHIATRIC: Unable to assess given patient's current clinical condition and sedation. . (Freda Nathan) Diagnostic Tests Laboratory Laboratory Tests Test 04/17/17 04/18/17 04/18/17 04/19/17 05:19 05:05 15:45 04:50 White Blood Count 1.6 TH/MM3 1.7 TH/MM3 2.3 TH/MM3 (4.0-11.0) (4.0-11.0) (4.0-11.0) Red Blood Count 3.17 MIL/MM3 3.01 MIL/MM3 2.99 MIL/MM3 (4.00-5.30) (4.00-5.30) (4.00-5.30) Hemoglobin 9.2 GM/DL 8.7 GM/DL 8.8 GM/DL (11.6-15.3) (11.6-15.3) (11.6-15.3) Hematocrit 27.5 % 26.3 % 26.0 % (35.0-46.0) (35.0-46.0) (35.0-46.0) Mean Corpuscular Volume 86.7 FL 87.6 FL 86.9 FL (80.0-100.0) (80.0-100.0) (80.0-100.0) Mean Corpuscular Hemoglobin 28.9 PG 29.0 PG 29.5 PG (27.0-34.0) (27.0-34.0) (27.0-34.0) Mean Corpuscular Hemoglobin 33.3 % 33.1 % 33.9 % Concent (32.0-36.0) (32.0-36.0) (32.0-36.0) Red Cell Distribution Width 17.3 % 18.2 % 18.2 % (11.6-17.2) (11.6-17.2) (11.6-17.2) Platelet Count 88 TH/MM3 63 TH/MM3 42 TH/MM3 (150-450) (150-450) (150-450) Mean Platelet Volume 8.7 FL 8.6 FL 8.7 FL (7.0-11.0) (7.0-11.0) (7.0-11.0) Neutrophils (%) (Auto) 58.6 % (16.0-70.0) Lymphocytes (%) (Auto) 25.5 % (9.0-44.0) Monocytes (%) (Auto) 15.7 % (0.0-8.0) Eosinophils (%) (Auto) 0.1 % (0.0-4.0) Basophils (%) (Auto) 0.1 % (0.0-2.0) Neutrophils # (Auto) 0.9 TH/MM3 (1.8-7.7) Lymphocytes # (Auto) 0.4 TH/MM3 (1.0-4.8) Monocytes # (Auto) 0.3 TH/MM3 (0-0.9) Eosinophils # (Auto) 0.0 TH/MM3 (0-0.4) Basophils # (Auto) 0.0 TH/MM3 (0-0.2) CBC Comment AUTO DIFF Differential Total Cells 100 Counted Neutrophils % (Manual) 42 % (16-70) Band Neutrophils % 23 % (0-6) Lymphocytes % 24 % (9-44) Monocytes % 11 % (0-8) Neutrophils # (Manual) 1.0 TH/MM3 (1.8-7.7) Nucleated Red Blood Cells 5 /100 WBC (0-0) Differential Comment FINAL DIFF MANUAL Platelet Estimate LOW (NORMAL) Platelet Morphology Comment NORMAL (NORMAL) Ovalocytes 1+ (NORMAL) Acanthocytes OCC (NORMAL) Sodium Level 142 MEQ/L 145 MEQ/L 146 MEQ/L (136-145) (136-145) (136-145) Potassium Level 4.3 MEQ/L 3.9 MEQ/L 3.5 MEQ/L (3.5-5.1) (3.5-5.1) (3.5-5.1) Chloride Level 103 MEQ/L 105 MEQ/L 104 MEQ/L (98-107) (98-107) (98-107) Carbon Dioxide Level 31.7 MEQ/L 32.1 MEQ/L 35.0 MEQ/L (21.0-32.0) (21.0-32.0) (21.0-32.0) Anion Gap 7 MEQ/L (5-15) 8 MEQ/L (5-15) 7 MEQ/L (5-15) Blood Urea Nitrogen 18 MG/DL (7-18) 15 MG/DL (7-18) 18 MG/DL (7-18) Creatinine 0.38 MG/DL 0.32 MG/DL 0.47 MG/DL (0.50-1.00) (0.50-1.00) (0.50-1.00) Estimat Glomerular Filtration 179 ML/MIN 218 ML/MIN 140 ML/MIN Rate (>89) (>89) (>89) Random Glucose 159 MG/DL 206 MG/DL 175 MG/DL (74-106) (74-106) (74-106) Calcium Level 8.2 MG/DL 8.2 MG/DL 8.3 MG/DL (8.5-10.1) (8.5-10.1) (8.5-10.1) Phosphorus Level 3.2 MG/DL (2.5-4.9) Magnesium Level 2.8 MG/DL (1.5-2.5) Total Bilirubin 0.4 MG/DL (0.2-1.0) Aspartate Amino Transf 18 U/L (15-37) (AST/SGOT) Alanine Aminotransferase 95 U/L (10-53) (ALT/SGPT) Alkaline Phosphatase 51 U/L (45-117) Total Protein 5.4 GM/DL (6.4-8.2) Albumin 2.6 GM/DL (3.4-5.0) Urine Color YELLOW (YELLW/STRAW) Urine Turbidity HAZY (CLEAR) Urine pH 7.5 (5.0-8.5) Urine Specific [place] 1.027 (1.002-1.035) Urine Protein 30 mg/dL (NEG-TRACE) Urine Glucose (UA) NEG mg/dL (NEG) Urine Ketones NEG mg/dL (NEG) Urine Occult Blood NEG (NEG) Urine Nitrite NEG (NEG) Urine Bilirubin NEG (NEG) Urine Urobilinogen LESS THAN 2.0 MG/DL (LESS THAN 2.0) Urine Leukocyte Esterase NEG (NEG) Urine RBC 31 /hpf (0-3) Urine WBC 2 /hpf (0-5) Urine Hyaline Casts 1 /lpf (RARE) Urine Mucus FEW /lpf (OCC) Urine Yeast with Hyphae OCC (NONE) Urine Yeast (Budding) MANY (NONE) Microscopic Urinalysis Comment CATH-CULT NOT IND Prothrombin Time 9.8 SEC (9.8-11.6) Prothromb Time International 0.9 RATIO Ratio Activated Partial 20.7 SEC Thromboplast Time (24.3-30.1) . (Freda Nathan) Result Diagram: 04/19/1744904/19/17449 Microbiology Microbiology Date/Time Procedure Status Source Growth 04/18/17 10:56 Aerobic Blood Culture - Preliminary Resulted Blood Peripheral NO GROWTH IN 1 DAY 04/18/17 10:56 Anaerobic Blood Culture - Preliminary Resulted Blood Peripheral NO GROWTH IN 1 DAY 04/18/17 11:05 Aerobic Blood Culture - Preliminary Resulted Blood Peripheral NO GROWTH IN 1 DAY 04/18/17 11:05 Anaerobic Blood Culture - Preliminary Resulted Blood Peripheral NO GROWTH IN 1 DAY 04/18/17 16:27 Gram Stain - Final Resulted Sputum Expectorated Sputum 04/18/17 16:27 Sputum Culture - Preliminary Resulted Gram Negative Santiago . Imaging Last 72 hours Impressions Chest X-Ray 04/19/17 0600 Signed Impressions: Service Date/Time: Wednesday, April 19, 2017 03:51 - CONCLUSION: No acute cardiopulmonary disease. Therese Javier MD Chest X-Ray 04/17/17 0600 Signed Impressions: Service Date/Time: Monday, April 17, 2017 03:51 - CONCLUSION: 1. Support apparatus in satisfactory position. No new infiltrate or effusion. Michael Bowen MD Chest X-Ray 04/17/17 0000 Signed Impressions: Service Date/Time: Monday, April 17, 2017 12:44 - CONCLUSION: Lines and tubes in place. No acute cardiopulmonary disease identified. Stanley Haile MD . Procedures 04/08/2017: Endotracheal intubation for acute hypercapnic respiratory failure . (Freda Nathan) Assessment and Plan Disease Oriented Problem List: (1) Chronic obstructive pulmonary disease (2) SCLC (small cell lung carcinoma) (3) Atrial fibrillation (4) Anxiety (5) Hypertension (6) Metastases to the liver Symptom Scale: (1) Anxiety Comment: History of underlying anxiety disorder, likely exacerbated secondary to patient's newly diagnosed metastatic small cell lung cancer and acute COPD exacerbation. . (2) Shortness of breath Comment: Patient remains intubated on mechanical ventilator. Patient has consented to tracheostomy, currently postponed due to low platelets. . (3) Pain Comment: No nonverbal signs are symptoms of pain are observed on exam or reported by nursing staff. Possible causes of pain may include SMLC stents of metastatic disease to the liver, dyspnea, invasive lines, immobility, bedbound status, Reddy catheter etc. . Pertinent Non-Medical Issues Psychosocial: Patient is originally from [place]. She has 2 sisters and one brother with whom she is very close, all live locally. Patient's passed with you years ago. The patient's daughter, Gabby, states they had not been together in 15 years but he was the love of her mother's life. She states her mother's health declined after his . She has 4 adult children (Vesta, Elva, Gabby and Wolf) between the ages of 23 and 31 years of age. Spiritual: [employer] allison Legal: Per [place] statutes, in the absence of written advanced directives healthcare proxy decision-making falls to the majority of the patient's for adult children. In reviewing notes, the patient previously verbalized that she wanted her "sister" to act in the role of the health care surrogate decision maker. However, the sister should she was referring to was not specified and the legal document was not completed. Ethical issues impacting care: No known ethical issues impacting care at this time . Important Contacts Yessenia Prasad, sister: [phone] Parul Allanct, sister: Vesta Hook, daughter: [phone] Gabby Rogers, daughter: [phone] Elva Hook, daughter: [phone] Wolf Fonseca, son: No phone available . Prognosis Patient is a 51-year-old female with SCLC and extensive metastatic disease to the liver in January,. Patient also as advanced COPD. She was started on palliative chemotherapy in 02/2017; patient tolerated chemotherapy well and it appeared to be effective. Currently hospitalized with an acute COPD exacerbation. Patient remains sedated and intubated on mechanical ventilator, unable to tolerate CPAP trials. Goals remain aggressive, however patient's overall prognosis is poor. . Code Status: Full Code Plan * FULL CODE * Decision-making: Patient's sister, Yessenia Prasad, is designated as the healthcare surrogate decision maker. * Ms. Hook was diagnosed with SCLC with extensive liver metastasis in January,. Palliative chemotherapy was initiated on 03/08/17; second round of chemotherapy was initiated on 04/05/17 but was not completed when the patient was admitted for management of acute COPD exacerbation. Further treatment is on hold secondary to patient's poor performance status. Dr. Martinez states the patient's overall prognosis is poor, making recommendations for hospice. * Symptom managementpain: Patient is currently sedated with propofol and fentanyl PRN. No nonverbal signs are symptoms of pain are observed on exam or reported by nursing staff. Possible causes of pain may include SCLC with extensive metastatic disease stents the liver, dyspnea, invasive lines, nausea/vomiting, immobility, bedbound status, Reddy catheter etc. Will continue to monitor; no recommendations at this time. * Symptom managementdyspnea: Patient remains intubated on mechanical ventilator secondary to acute hypercapnic respiratory failure. Apparently attempted extubation again over the weekend (04/17/17). Patient oxygen saturations remained stable, but she had to be reintubated after 15 minutes because she felt like she could catch her breath. Patient has consented to tracheostomy, initially planned for today but postponed secondary to platelets of 42. * Symptom managementanxiety: History of underlying anxiety disorder, likely exacerbated secondary to patient's newly diagnosed metastatic small cell lung cancer and acute COPD exacerbation. Currently sedated on Diprivan and Fentanyl. * Patient continues to indicate aggressive goals and confirms that she is a FULL CODE. Family meeting scheduled tomorrow at 10 AM with Gladis MORSE, oncology * Discussed with patient with nurse, Yusra. Also discussed with Margo Wan, Oncology PA. * Palliative care will continue to follow this patient throughout her hospitalization to establish trust, assist with symptom management and clarification of medical treatment goals. . (Freda Nathan) Attestation To help prompt me to consider important information that might be impacting today's encounter and assessment, information from prior notes written by myself or my colleagues may have been "brought forward" into today's note. My signature on this note, however, is an attestation that I personally performed the exam, history, and/or decision-making noted today, and, unless otherwise indicated, the interactions with patient, family, and staff as well as the review of records all occurred today. I also attest that the listed assessment and stated plan reflect my best clinical judgment today based on the combination of historical information, prior notes, and today's exam/ interactions. When time spent is documented, it refers only to time spent today by the signer, or if indicated, combined time spent today by collaborating physician/nurse practitioner. . (Freda Nathan) Collaborating MD Comments . Chart reviewed. Case discussed with palliative care MUSEUM LIBRARIAN. I have reviewed above MUSEUM LIBRARIAN note and I concur. . (Paco Dash MD) Freda Nathan April 19, 2017 15:43 Paco Dash MD April 27, 2017 12:37
[2017-04-19 16:04] LABS: HEPARIN AB OD 0.208 O.D. (0.000-0.300); HEPARIN INDUCED PLATELET AB NEGATIVE (NEGATIVE)
--- NOTE | 2017-04-19 17:19 | HHI.PR ---
Subjective Remarks on the vent , sedated Objective Vital Signs Date Time Temp Pulse Resp B/P Pulse Ox O2 Delivery O2 Flow Rate FiO2 04/19/17 14:41 100 30 04/19/17 14:00 118 04/19/17 13:00 110 04/19/17 12:00 30 04/19/17 12:00 102 04/19/17 12:00 98.3 102 17 92/63 100 04/19/17 11:56 100 30 04/19/17 11:00 88 04/19/17 10:00 93 04/19/17 09:22 100 30 04/19/17 09:00 100 04/19/17 08:00 30 04/19/17 08:00 98.4 92 14 98/62 100 04/19/17 08:00 92 04/19/17 06:00 97 04/19/17 04:10 100 30 04/19/17 04:00 98 04/19/17 04:00 98.0 98 4 92/62 100 04/19/17 04:00 30 04/19/17 03:40 93 14 90/64 100 04/19/17 03:20 95 14 94/65 100 04/19/17 03:00 101 14 90/67 100 04/19/17 02:40 96 14 94/64 100 04/19/17 02:20 96 10 100/64 100 04/19/17 02:00 98 04/19/17 02:00 98 14 97/64 100 04/19/17 01:45 98 04/19/17 01:40 99 04/19/17 01:40 99 16 115/73 100 04/19/17 01:30 92 04/19/17 01:20 90 14 118/67 100 04/19/17 01:20 90 04/19/17 01:15 94 04/19/17 01:00 94 13 120/74 100 04/19/17 01:00 94 04/19/17 00:45 95 04/19/17 00:40 99 16 138/81 100 04/19/17 00:40 99 04/19/17 00:30 92 04/19/17 00:20 92 14 101/69 100 04/19/17 00:20 92 04/19/17 00:15 87 04/19/17 00:00 85 04/19/17 00:00 30 04/19/17 00:00 98.6 85 14 106/66 100 04/19/17 00:00 85 10 106/66 100 04/18/17 23:50 100 30 04/18/17 22:00 83 04/18/17 20:09 100 30 04/18/17 20:00 98.2 89 14 106/71 100 04/18/17 20:00 89 04/18/17 20:00 30 04/18/17 18:00 99 I/O 04/18/17 04/18/17 04/18/17 04/19/17 04/19/17 04/19/17 07:00 15:00 23:00 07:00 15:00 23:00 Intake Total 1257 ml 1340 ml 762 ml 684 ml 1036 ml Output Total 1700 ml 2400 ml 1200 ml 1150 ml 750 ml Balance -443 ml -1060 ml -438 ml -466 ml 286 ml IV Total 876 ml 900 ml 395 ml 389 ml 189 ml Tube Feeding 221 ml 240 ml 247 ml 235 ml 607 ml Tube Irrigant 60 ml 200 ml Other 100 ml 120 ml 60 ml 240 ml Output Urine Total 1700 ml 2400 ml 1200 ml 1150 ml 750 ml # Bowel Movements 1 4 0 1 2 Result Diagram: 04/19/1744904/19/17449 Objective Remarks GENERAL: SKIN: Warm and dry. HEAD: Atraumatic. Normocephalic. EYES: Pupils equal and round. No scleral icterus. No injection or drainage. ENT: No nasal bleeding or discharge. Mucous membranes pink and moist. NECK: Trachea midline. No JVD. CARDIOVASCULAR: Regular rate and rhythm. RESPIRATORY: No accessory muscle use. Clear to auscultation. Breath sounds equal bilaterally. GASTROINTESTINAL: Abdomen soft, non-tender, nondistended. Hepatic and splenic margins not palpable. MUSCULOSKELETAL: Extremities without clubbing, cyanosis, or edema. No obvious deformities. NEUROLOGICAL: Awake and alert. No obvious cranial nerve deficits. Motor grossly within normal limits. Five out of 5 muscle strength in the arms and legs. Normal speech. PSYCHIATRIC: Appropriate mood and affect; insight and judgment normal. Assessment and Plan Assessment and Plan ass: On the vent respiratory failure copd lung CA PLAN VENT SUPPORT BRONCHODILATOR THERAPY for tracheostomy Audra Zhu MD April 19, 2017 17:19
[2017-04-19] MEDS: DILTIAZEM HCL 30 MG TAB PO SCH ×2 (18:50→21:51)
[2017-04-19] MEDS: RESP: BUDESONIDE 0.5 MG/2 ML NEB NEB SCH (20:16)
[2017-04-19] MEDS: RESP: ALBUTEROL 2.5 MG/3 ML NEB (PRN) INH (20:16)
[2017-04-20] VITALS (31 sets, daily range): BP systolic 85–162; BP diastolic 52–88; PULSE 94–122; RESP 14–24; TEMP 98–99.7; O2SAT 65–100
[2017-04-20] MEDS: RESP: ALBUTEROL 2.5 MG/3 ML NEB (PRN) INH ×2 (03:44→11:01)
[2017-04-20] MEDS: INSULIN ASPART SUPPLEMENTAL SCALE SQ SCH ×2 (04:00→08:00)
[2017-04-20] MEDS: METOCLOPRAMIDE HCL 10 MG/2 ML VIAL IV PUSH SCH ×3 (06:40→21:38)
[2017-04-20] MEDS: methylPREDNISolone SOD SUCC 125 MG/2 ML VIAL IVP SCH ×3 (06:41→21:34)
[2017-04-20 06:59] LABS: WBC DIFF SAMPLE 100
--- NOTE | 2017-04-20 07:04 | HHI.CCPN ---
Subjective Remarks/Hospital Course 51-year-old female with past medical history of small cell lung cancer with liver metastases diagnosed in January 2017, tobacco abuse. She has been on palliative chemotherapy since March 08. She presented to [facility] emergency department on 04/07/17 with shortness of breath and has been treated for COPD exacerbation with nebs, Solu-Medrol, cefepime and azithromycin. She was placed on BiPAP and initially had some response. However she refused BiPAP and has becoming progressively lethargic through the course of the evening. An ABG was obtained and she has acute hypercapnic respiratory failure with pH 7.12/PaCO2 116/PA O2 of 101. Her RN discussed code status with her earlier and patient stated "intubate me if I need it". Further history is limited due to patient's altered mental status secondary to hypercapnic respiratory failure. CTA 04/07 was negative for pulmonary embolism. 04/08: CPAP trials attempted patient extremely anxious, unsuccessful. Plan to to transition to Precedex infusion for CPAP trials and weaning. ABG this a.m. 7.34/63/205/34/7.9, but patient gets extremely anxious when CPAP trials were initiated. 04/09 Patient is sedated with Diprivan and intubated. Afebrile. 04/10:Afebrile. Notably anxious this afternoon. Patient placed on Precedex infusion CPAP trials initiated. 04/11: Continue attempts at CPAP trials, one Precedex unsuccessful. Patient becomes extremely anxious despite Xanax. Patient now continues on propofol sedation for mechanical ventilation synchrony. 04/12: Medications readjusted today the patient continues on CPAP trials greater than 6 hours. Sodium level was noted to continue to be elevated free water flushes added to medication regimen. Off sedation the patient continues to be a GCS of 11 T. 04/13: Lasted only 10 minutes on PSV trial today. Continues to be on propofol and fentanyl drips for vent synchrony. Tolerating tube feeding. Positive BM. 04/14: Resting in bed. Currently not tolerating PSV trials. Arousable. Moves all 4 extremities spontaneously. No bowel movement. 04/15: Seen with Dr. Zhu. No acute distress. Awake and alert and following commands. Currently afebrile. 04/16: Attempt x-rays yesterday. Lasted 2 hours before reintubation. Intractable nausea and vomiting. CT abdomen pelvis 04/15 revealed ductal dilatation is contracted gallbladder with stone. LFTs slightly elevated. Recheck in this AM. Arousable and follows commands on the ventilator. Positive BM overnight. 04/17: Attempt extubation. Lasted 15 minutes before reintubation due to distress. Saturations okay but "cannot catch breath". FiO2 30% and had excellent RSBI of around 30 and nif of -47. Vocal cords looked normal. Subjective: 04/18: Currently resting in bed with FiO2 30%. Afebrile. Tolerating tube feeds. No changes past 24 hours. Platelets are trending downward. Lovenox held and heparin antibody sent 04/19 Patient remains sedated with Diprivan and intubated. Afebrile. Tolerating tube feeds. 04/20 No events overnight. Afebrile. Sedated and intubated. Objective Vital Signs Date Time Temp Pulse Resp B/P Pulse Ox O2 Delivery O2 Flow Rate FiO2 04/20/17 06:00 96 04/20/17 04:08 100 30 04/20/17 04:00 98.7 14 85/54 04/17/17 12:28 Nasal Cannula 5.00 Intake and Output 04/19/17 04/19/17 04/19/17 07:59 15:59 23:59 Intake Total 684 ml 1036 ml 1122 ml Output Total 1150 ml 750 ml 1150 ml Balance -466 ml 286 ml -28 ml Result Diagram: 04/20/17 0510 04/19/17 0450 Other Results Laboratory Tests Test 04/19/17 04/20/17 16:56 05:10 Fibrinogen 230 mg/dL White Blood Count 15.0 TH/MM3 Red Blood Count 4.17 MIL/MM3 Hemoglobin 12.2 GM/DL Hematocrit 34.8 % Mean Corpuscular Volume 83.5 FL Mean Corpuscular Hemoglobin 29.2 PG Mean Corpuscular Hemoglobin 35.0 % Concent Red Cell Distribution Width 14.1 % Platelet Count 319 TH/MM3 Mean Platelet Volume 8.4 FL Neutrophils (%) (Auto) 93.1 % Lymphocytes (%) (Auto) 2.7 % Monocytes (%) (Auto) 3.5 % Eosinophils (%) (Auto) 0.6 % Basophils (%) (Auto) 0.1 % Neutrophils # (Auto) 14.0 TH/MM3 Lymphocytes # (Auto) 0.4 TH/MM3 Monocytes # (Auto) 0.5 TH/MM3 Eosinophils # (Auto) 0.1 TH/MM3 Basophils # (Auto) 0.0 TH/MM3 CBC Comment AUTO DIFF Imaging Last Impressions Chest X-Ray 04/19/17 0600 Signed Impressions: Service Date/Time: Wednesday, April 19, 2017 03:51 - CONCLUSION: No acute cardiopulmonary disease. Tehrese Javier MD Cholangiopancreatography MRI 04/16/17 0000 Signed Impressions: Service Date/Time: Sunday, April 16, 2017 09:35 - CONCLUSION: 1. Unremarkable examination of the biliary tree. No evidence of ductal dilatation. 2. Cholelithiasis 3. Indeterminate lesions in liver as described above. Malignancy is not excluded. Administration of contrast would be helpful to further delineate these abnormalities Son Bryson MD Abdomen/Pelvis CT 04/15/17 0000 Signed Impressions: Service Date/Time: March 17:45 - CONCLUSION: 1. Biliary dilatation as described above. 2. Mass is again identified laterally in the right lobe. Central mass seen previously is poorly demonstrated on today's exam because of phase of the contrast. 3. Gallstones around a contracted gallbladder. Fred Vieyra MD FACR Abdomen X-Ray 04/15/17 0000 Signed Impressions: Service Date/Time: March 13:34 - CONCLUSION: Normal examination. Tomasz New MD CT Angiography 04/07/17 0031 Signed Impressions: Service Date/Time: Friday, April 07, 2017 01:13 - CONCLUSION: 1. No pulmonary emboli. 2. Reduction in size of the mediastinal and hilar adenopathy. 3. Reduction in size of the left hepatic lobe metastasis. 4. Severe emphysematous changes. Roberth Lockett Jr., MD Objective Remarks GENERAL: PAtient is 51yo intubated and sedated SKIN: Warm and dry. HEAD: Normocephalic. EYES: No scleral icterus. No injection or drainage. NECK: Supple, trachea midline. No JVD or lymphadenopathy. Orally intubated CARDIOVASCULAR:Tachy without murmurs, gallops, or rubs. RESPIRATORY: Breath sounds equal bilaterally. No accessory muscle use. GASTROINTESTINAL: Abdomen soft, non-tender, nondistended. MUSCULOSKELETAL: No cyanosis, or edema. Neuro: Sedated. Date of Insertion: April 07, 2017 A/P Assessment and Plan NEURO/PSYCH: Anxiety disorder NOS On Diprivan infusion for sedation. Daily sedation vacation. RASS target -2 RESP: Acute hypercapnic respiratory failure COPD exacerbation Severe emphysematous COPD [facility] 14/700/12/03/29 Ventilator bundle DuoNeb therapy every 4 hours with albuterol nebs every 2 hours when necessary Continue with vent support keep sat >92% SBT daily as prasanna. Continue Solu-Medrol 40 mg IV every 8 hours Pulmonology following, Dr. Zhu CTA 04/07 significant/severe pulmonary emphysema, decreasing mediastinal lymphadenopathy. Decrease in size of hepatic mass Home medications are Spiriva 18 V daily Atrovent HFA 2 puffs 4 times a day Surgery consulted last week for tracheostomy- awaiting improvements of pancytopenia prior to trach. CXT 04/19- No acute disease ABG on CPAP 09/02 showed PH: 7.46, CO2: 44, PAO2: 103, good parameters as will with NIF -39, FVC 1L. Will extubate and use NIPPV PRN during day and nocturnally qhs. CV: Hypertension Dyslipidemia History of atrial fibrillation Monitor HR and BP keep MAP>65mmHg Continue Cardizem 30 mg QID Currently holding Lipitor 20 mg daily/home medication for elevated LFT's 2-D echo 02/12 revealed EF 55-60%. No regional wall motion abnormality. GI: Mild protein calorie malnutrition CT abdomen/pelvis 04/15 Revealed contracted gallbladder. Ductal dilatation biliary system/pancreas noted MRCP essentially normal. GI is following Jevity 1.5 65 mL per hour Prevacid for GI prophylaxis Colace/Senokot twice a day for bowel regimen /Renal: Monitor renal function, I/O's, electrolytes replacement per protocol. Place on Free water 250ml Q12 ID: Completed cefepime and azithromycin course. Place on Zosyn. Monitor for signs of infections (Fever, WBC) blood and urine culture- NGTD sputum 04/18- GNR HEME/ONC: Small cell lung cancer with liver metastases on palliative chemotherapy Leukopenia Normocytic anemia Thrombocytopenia Monitor CBC Hematology following, Dr. Martinez Not a candidate for chemotherapy until extubated Noted consultation a palliative care per hematology yesterday. Remains full code Lovenox on hold. Hit panel negative ENDO: Acute hyperglycemia of critical illness Increase SSI medium scale add Levemir 5mg Q12 Access - Right Port-A-Cath Prophylaxis - GI -Prevacid - DVT - SCD/Lovenox sq on hold Level 3 . Kareem Schmitz MD April 20, 2017 07:04
[2017-04-20] MEDS ORDERED: PIPERACIL-TAZO 4.5 GM PREMIX 100 ML IV SCH (07:15)
[2017-04-20] MEDS: RESP: BUDESONIDE 0.5 MG/2 ML NEB NEB SCH ×2 (07:41→19:23)
--- NOTE | 2017-04-20 07:45 | HHI.PR ---
Subjective Remarks on the vent , sedated Objective Vital Signs Date Time Temp Pulse Resp B/P Pulse Ox O2 Delivery O2 Flow Rate FiO2 04/20/17 06:00 96 04/20/17 05:30 101 04/20/17 05:00 105 04/20/17 04:30 94 04/20/17 04:08 100 30 04/20/17 04:00 96 04/20/17 04:00 98.7 96 14 85/54 100 04/20/17 04:00 96 04/20/17 04:00 30 04/20/17 03:30 106 04/20/17 03:00 107 04/20/17 03:00 107 04/20/17 03:00 107 14 105/69 100 04/20/17 02:30 108 04/20/17 02:00 105 21 111/62 100 04/20/17 02:00 105 04/20/17 02:00 105 04/20/17 01:53 100 30 04/20/17 01:30 109 04/20/17 01:05 103 04/20/17 01:00 104 04/20/17 00:30 101 04/20/17 00:00 102 04/20/17 00:00 102 04/20/17 00:00 98.0 102 14 93/52 100 04/20/17 00:00 30 04/19/17 22:07 100 30 04/19/17 22:00 116 04/19/17 20:14 100 30 04/19/17 20:00 30 04/19/17 20:00 98.0 103 14 101/67 100 04/19/17 20:00 103 04/19/17 18:00 105 04/19/17 17:00 107 04/19/17 16:00 109 04/19/17 16:00 98.2 109 14 93/60 98 04/19/17 16:00 30 04/19/17 14:41 100 30 04/19/17 14:00 118 04/19/17 13:00 110 04/19/17 12:00 30 04/19/17 12:00 102 04/19/17 12:00 98.3 102 17 92/63 100 04/19/17 11:56 100 30 04/19/17 11:00 88 04/19/17 10:00 93 04/19/17 09:22 100 30 04/19/17 09:00 100 04/19/17 08:00 30 04/19/17 08:00 98.4 92 14 98/62 100 04/19/17 08:00 92 I/O 04/19/17 04/19/17 04/19/17 04/20/17 04/20/17 04/20/17 07:00 15:00 23:00 07:00 15:00 23:00 Intake Total 684 ml 1036 ml 1122 ml 1074 ml Output Total 1150 ml 750 ml 1150 ml 850 ml Balance -466 ml 286 ml -28 ml 224 ml IV Total 389 ml 189 ml 535 ml 458 ml Tube Feeding 235 ml 607 ml 467 ml 456 ml Other 60 ml 240 ml 120 ml 160 ml Output Urine Total 1150 ml 750 ml 1150 ml 850 ml Tube Feeding Residual Discard 0 ml 0 ml # Bowel Movements 1 2 2 1 Result Diagram: 04/20/17 0510 04/20/17 0510 Objective Remarks GENERAL: SKIN: Warm and dry. HEAD: Atraumatic. Normocephalic. EYES: Pupils equal and round. No scleral icterus. No injection or drainage. ENT: No nasal bleeding or discharge. Mucous membranes pink and moist. NECK: Trachea midline. No JVD. CARDIOVASCULAR: Regular rate and rhythm. RESPIRATORY: No accessory muscle use. Clear to auscultation. Breath sounds equal bilaterally. GASTROINTESTINAL: Abdomen soft, non-tender, nondistended. Hepatic and splenic margins not palpable. MUSCULOSKELETAL: Extremities without clubbing, cyanosis, or edema. No obvious deformities. NEUROLOGICAL: Awake and alert. No obvious cranial nerve deficits. Motor grossly within normal limits. Five out of 5 muscle strength in the arms and legs. Normal speech. PSYCHIATRIC: Appropriate mood and affect; insight and judgment normal. Assessment and Plan Assessment and Plan ass: On the vent respiratory failure copd lung CA PLAN VENT SUPPORT BRONCHODILATOR THERAPY for tracheostomy Discharge Planning Laboratory Tests Test 04/18/17 04/18/17 04/19/17 04/20/17 05:05 15:45 04:50 05:10 White Blood Count 1.7 TH/MM3 2.3 TH/MM3 15.0 TH/MM3 (4.0-11.0) (4.0-11.0) (4.0-11.0) Red Blood Count 3.01 MIL/MM3 2.99 MIL/MM3 (4.00-5.30) (4.00-5.30) Hemoglobin 8.7 GM/DL 8.8 GM/DL (11.6-15.3) (11.6-15.3) Hematocrit 26.3 % 26.0 % 34.8 % (35.0-46.0) (35.0-46.0) (35.0-46.0) Red Cell Distribution Width 18.2 % 18.2 % (11.6-17.2) (11.6-17.2) Platelet Count 63 TH/MM3 42 TH/MM3 (150-450) (150-450) Carbon Dioxide Level 32.1 MEQ/L 35.0 MEQ/L (21.0-32.0) (21.0-32.0) Creatinine 0.32 MG/DL 0.47 MG/DL 2.32 MG/DL (0.50-1.00) (0.50-1.00) (0.50-1.00) Random Glucose 206 MG/DL 175 MG/DL 198 MG/DL (74-106) (74-106) (74-106) Calcium Level 8.2 MG/DL 8.3 MG/DL 7.8 MG/DL (8.5-10.1) (8.5-10.1) (8.5-10.1) Urine Turbidity HAZY (CLEAR) Urine Protein 30 mg/dL (NEG-TRACE) Urine RBC 31 /hpf (0-3) Urine Mucus FEW /lpf (OCC) Urine Yeast with Hyphae OCC (NONE) Urine Yeast (Budding) MANY (NONE) Activated Partial 20.7 SEC Thromboplast Time (24.3-30.1) Sodium Level 146 MEQ/L 129 MEQ/L (136-145) (136-145) Neutrophils (%) (Auto) 93.1 % (16.0-70.0) Lymphocytes (%) (Auto) 2.7 % (9.0-44.0) Neutrophils # (Auto) 14.0 TH/MM3 (1.8-7.7) Lymphocytes # (Auto) 0.4 TH/MM3 (1.0-4.8) Band Neutrophils % 35 % (0-6) Lymphocytes % 6 % (9-44) Neutrophils # (Manual) 13.5 TH/MM3 (1.8-7.7) Metamyelocytes 5 % (0-1) Myelocytes 2 % (0-0) Potassium Level 2.8 MEQ/L (3.5-5.1) Chloride Level 91 MEQ/L (98-107) Anion Gap 16 MEQ/L (5-15) Blood Urea Nitrogen 93 MG/DL (7-18) Estimat Glomerular Filtration 22 ML/MIN (>89) Rate Total Bilirubin 1.3 MG/DL (0.2-1.0) Total Protein 6.0 GM/DL (6.4-8.2) Albumin 2.1 GM/DL (3.4-5.0) Audra Zhu MD April 20, 2017 07:45
[2017-04-20] MEDS ORDERED: DEXTROSE 50% IN WATER 50 ML VIAL(D50) IV PRN (09:15)
[2017-04-20] MEDS ORDERED: GLUCAGON 1 MG/ML VIAL OTHER PRN (09:15)
[2017-04-20] MEDS: SODIUM CHLORIDE 0.9% FLUSH 10 ML FLUSH IV FLUSH SCH ×2 (09:48→21:35)
[2017-04-20] MEDS: DILTIAZEM HCL 30 MG TAB PO SCH ×4 (09:48→21:35)
[2017-04-20] MEDS: LANSOPRAZOLE SOLUTAB 30 MG TAB NG SCH (09:48)
[2017-04-20] MEDS: PIPERACIL-TAZO 3.375 GM PREMIX 50 ML IV SCH ×2 (09:49→13:44)
[2017-04-20] MEDS: CHLORHEXIDINE 0.12% (ORAL KIT) 15 ML CUP MT SCH ×2 (09:50→20:00)
[2017-04-20] MEDS ORDERED: RESP: ALBUTEROL 2.5 MG/IPRATROPIUM 0.5 MG NEB (SCH) NEB (10:00)
[2017-04-20 10:44] LABS: HEMATOCRIT 25.3 % (35.0-46.0); MEAN CELL VOLUME 87.9 FL (80.0-100.0); MEAN CORPUSCULAR HEMOGLOBIN 28.2 PG (27.0-34.0); MEAN CORPUSCULAR HGB CONC 32.1 % (32.0-36.0); PLATELET COUNT 37 TH/MM3 (150-450); RED BLOOD COUNT 2.88 MIL/MM3 (4.00-5.30); RED CELL DISTRIBUTION WIDTH 19.5 % (11.6-17.2); WHITE BLOOD COUNT 4.5 TH/MM3 (4.0-11.0)
[2017-04-20 10:46] LABS: HEMO FLAGS AUTO DIFF
--- NOTE | 2017-04-20 11:18 | HHI.HCPN ---
Reason for visit a. To assist with evaluation and management of symptoms including: shortness of breath, anxiety, pain b. To assist medical decision maker(s) with: better understanding of current medical conditions; weighing benefits/burdens of medical treatment options; making medical treatment decisions. . (Freda Nathan) Subjective/Interval History Ms. Hook is a 51 year old female with stage IV small cell lung cancer who presented to [facility] ED via EMS on 04/06/2017 and was subsequently admitted with acute COPD exacerbation. She has a past medical history is significant for COPD (on supplemental oxygen and nebulizers at home), anxiety disorder, atrial fibrillation and hypertension. Ms. Hook was diagnosed with SCLC with extensive liver metastasis in January,. Follow-up for symptom management, clarification of medical treatment goals. Patient is awake and alert, able to answer yes/no question by nodding or shaking her head. No acute events overnight. Afebrile. She remains intubated on mechanical ventilator, attempting CPAP trail today.Apparently attempted extubation again over the weekend (04/17/17). Patient oxygen saturations remained stable, but she had to be reintubated after 15 minutes because she felt like she could catch her breath. Patient has consented to tracheostomy, but the procedure was postponed yesterday secondary to platelets of 42. Awaiting am blood work. Patient denies pain, dyspnea, anxiety during exam. Sputum culture on 04/18/17 growing gram-negative rods. Met with patient's sister (Yessenia) and 3 of her children (Gabby, Wolf, Vesta) privately and can at patient's bedside. Also present Gladis Wan ( Oncology PA) and Clau Jerez (Palliative Care PLASMA CUTTING MACHINE OPERATOR). Updated patient and family on the patient's current clinical condition. Patient is not a candidate for further chemotherapy unless her current acute issues resolve and her performance status significantly improves. Both patient and her family indicate understanding that treatment is palliative, not curative. They are aware that the patient's overall prognosis is poor. Patient's CODE STATUS was also addressed; the process of cardiopulmonary resuscitation including compressions, ACLS medications, cardioversion and intubation/mechanical ventilation were discussed. Patient clearly indicating her goals will remain aggressive, despite her poor prognosis. She requests her CODE STATUS remain FULL CODE. Family members are supportive of patient's current medical treatment goals. Discussed with patient's nurse (Yusra), case management (Katy) and Dr. Schmitz. Possible discharge to [facility] per case management. . (Freda Nathan) Advance Directives Health Care Surrogate: Copy in medical record (Freda Nathan) Advance Directive Specifics Date completed: 04/16/2017 . Health Care Surrogate(s): Patient's sister, Yessenia Prasad, is designated as the health care surrogate decision maker. . Documented care wishes: No documented care wishes are available. . Significant change in goals: Goals remain aggressive; possible discharge to [facility]. . (Freda Nathan) Objective Vital Signs Date Time Temp Pulse Resp B/P Pulse Ox O2 Delivery O2 Flow Rate FiO2 04/20/17 07:41 30 04/20/17 07:41 100 30 04/20/17 06:00 96 04/20/17 05:30 101 04/20/17 05:00 105 04/20/17 04:30 94 04/20/17 04:08 100 30 04/20/17 04:00 96 04/20/17 04:00 98.7 96 14 85/54 100 04/20/17 04:00 96 04/20/17 04:00 30 04/20/17 03:30 106 04/20/17 03:00 107 04/20/17 03:00 107 04/20/17 03:00 107 14 105/69 100 04/20/17 02:30 108 04/20/17 02:00 105 21 111/62 100 04/20/17 02:00 105 04/20/17 02:00 105 04/20/17 01:53 100 30 04/20/17 01:30 109 04/20/17 01:05 103 04/20/17 01:00 104 04/20/17 00:30 101 04/20/17 00:00 102 04/20/17 00:00 102 04/20/17 00:00 98.0 102 14 93/52 100 04/20/17 00:00 30 04/19/17 22:07 100 30 04/19/17 22:00 116 04/19/17 20:14 100 30 04/19/17 20:00 30 04/19/17 20:00 98.0 103 14 101/67 100 04/19/17 20:00 103 04/19/17 18:00 105 04/19/17 17:00 107 04/19/17 16:00 109 04/19/17 16:00 98.2 109 14 93/60 98 04/19/17 16:00 30 04/19/17 14:41 100 30 04/19/17 14:00 118 04/19/17 13:00 110 04/19/17 12:00 30 04/19/17 12:00 102 04/19/17 12:00 98.3 102 17 92/63 100 04/19/17 11:56 100 30 04/19/17 11:00 88 Intake & Output 04/20/17 04/20/17 06:59 18:59 Intake Total 2196 ml Output Total 2000.0 ml Balance 196.0 ml IV Total 993 ml Tube Feeding 923 ml Other 280 ml Output Urine Total 2000 ml Tube Feeding Residual Discard 0 ml # Bowel Movements 3 . Physical Exam CONSTITUTIONAL/GENERAL: This is an adequately nourished patient currently intubated on mechanical ventilator TUBES/LINES/DRAINS: [id number] accessed, OGT, ETT, PIV 1, Reddy, soft restraints, SCDs SKIN: No jaundice, rashes, or lesions. Ecchymoses on upper extremities. No wounds seen anteriorly. Skin temperature appropriate. Not diaphoretic. HEAD: Atraumatic. Normocephalic. EYES: Pupils equal and round and reactive. No scleral icterus. No injection or drainage. Fundi not examined. ENT: ETT; OGT. Nose without bleeding or purulent drainage. NECK: Trachea midline. Supple, nontender. No palpable thyroid enlargement or nodularity. CARDIOVASCULAR: Regular rate and rhythm without murmurs, gallops, or rubs. No JVD. Peripheral pulses symmetric. RESPIRATORY/CHEST: Intubated on mechanical ventilator. Breath sounds diminished bilaterally. No wheezes, rales, or rhonchi. GASTROINTESTINAL: Abdomen firm, nontender. Bowel sounds present. OGT in place, tolerating tube feedings GENITOURINARY: Without palpable bladder distension. Reddy catheter in place. MUSCULOSKELETAL: Extremities without clubbing, cyanosis. LYMPHATICS: No palpable cervical or supraclavicular adenopathy. NEUROLOGICAL: Awake and alert; able to answer yes/no questions by nodding or shaking her head. PSYCHIATRIC: Unable to assess given patient's current clinical condition and sedation. . (Freda Nathan) Diagnostic Tests Laboratory Laboratory Tests Test 04/18/17 04/18/17 04/18/17 04/19/17 05:05 10:46 15:45 04:50 White Blood Count 1.7 TH/MM3 2.3 TH/MM3 (4.0-11.0) (4.0-11.0) Red Blood Count 3.01 MIL/MM3 2.99 MIL/MM3 (4.00-5.30) (4.00-5.30) Hemoglobin 8.7 GM/DL 8.8 GM/DL (11.6-15.3) (11.6-15.3) Hematocrit 26.3 % 26.0 % (35.0-46.0) (35.0-46.0) Mean Corpuscular Volume 87.6 FL 86.9 FL (80.0-100.0) (80.0-100.0) Mean Corpuscular Hemoglobin 29.0 PG 29.5 PG (27.0-34.0) (27.0-34.0) Mean Corpuscular Hemoglobin 33.1 % 33.9 % Concent (32.0-36.0) (32.0-36.0) Red Cell Distribution Width 18.2 % 18.2 % (11.6-17.2) (11.6-17.2) Platelet Count 63 TH/MM3 42 TH/MM3 (150-450) (150-450) Mean Platelet Volume 8.6 FL 8.7 FL (7.0-11.0) (7.0-11.0) Sodium Level 145 MEQ/L 146 MEQ/L (136-145) (136-145) Potassium Level 3.9 MEQ/L 3.5 MEQ/L (3.5-5.1) (3.5-5.1) Chloride Level 105 MEQ/L 104 MEQ/L (98-107) (98-107) Carbon Dioxide Level 32.1 MEQ/L 35.0 MEQ/L (21.0-32.0) (21.0-32.0) Anion Gap 8 MEQ/L (5-15) 7 MEQ/L (5-15) Blood Urea Nitrogen 15 MG/DL (7-18) 18 MG/DL (7-18) Creatinine 0.32 MG/DL 0.47 MG/DL (0.50-1.00) (0.50-1.00) Estimat Glomerular Filtration 218 ML/MIN 140 ML/MIN Rate (>89) (>89) Random Glucose 206 MG/DL 175 MG/DL (74-106) (74-106) Calcium Level 8.2 MG/DL 8.3 MG/DL (8.5-10.1) (8.5-10.1) Heparin-Induced Platelet Ab NEGATIVE (Shelly) (NEGATIVE) HIPA Patient Optical Density 0.208 O.D. (0.000-0.300) Urine Color YELLOW (YELLW/STRAW) Urine Turbidity HAZY (CLEAR) Urine pH 7.5 (5.0-8.5) Urine Specific [place]our 1.027 (1.002-1.035) Urine Protein 30 mg/dL (NEG-TRACE) Urine Glucose (UA) NEG mg/dL (NEG) Urine Ketones NEG mg/dL (NEG) Urine Occult Blood NEG (NEG) Urine Nitrite NEG (NEG) Urine Bilirubin NEG (NEG) Urine Urobilinogen LESS THAN 2.0 MG/DL (LESS THAN 2.0) Urine Leukocyte Esterase NEG (NEG) Urine RBC 31 /hpf (0-3) Urine WBC 2 /hpf (0-5) Urine Hyaline Casts 1 /lpf (RARE) Urine Mucus FEW /lpf (OCC) Urine Yeast with Hyphae OCC (NONE) Urine Yeast (Budding) MANY (NONE) Microscopic Urinalysis Comment CATH-CULT NOT IND Prothrombin Time 9.8 SEC (9.8-11.6) Prothromb Time International 0.9 RATIO Ratio Activated Partial 20.7 SEC Thromboplast Time (24.3-30.1) Test 04/19/17 04/20/17 04/20/17 16:56 05:10 09:46 Fibrinogen 230 mg/dL (227-377) White Blood Count 15.0 TH/MM3 4.5 TH/MM3 (4.0-11.0) (4.0-11.0) Red Blood Count 4.17 MIL/MM3 2.88 MIL/MM3 (4.00-5.30) (4.00-5.30) Hemoglobin 12.2 GM/DL 8.1 GM/DL (11.6-15.3) (11.6-15.3) Hematocrit 34.8 % 25.3 % (35.0-46.0) (35.0-46.0) Mean Corpuscular Volume 83.5 FL 87.9 FL (80.0-100.0) (80.0-100.0) Mean Corpuscular Hemoglobin 29.2 PG 28.2 PG (27.0-34.0) (27.0-34.0) Mean Corpuscular Hemoglobin 35.0 % 32.1 % Concent (32.0-36.0) (32.0-36.0) Red Cell Distribution Width 14.1 % 19.5 % (11.6-17.2) (11.6-17.2) Platelet Count 319 TH/MM3 37 TH/MM3 (150-450) (150-450) Mean Platelet Volume 8.4 FL 9.4 FL (7.0-11.0) (7.0-11.0) Neutrophils (%) (Auto) 93.1 % % (16.0-70.0) (16.0-70.0) Lymphocytes (%) (Auto) 2.7 % % (9.0-44.0) (9.0-44.0) Monocytes (%) (Auto) 3.5 % (0.0-8.0) % (0.0-8.0) Eosinophils (%) (Auto) 0.6 % (0.0-4.0) % (0.0-4.0) Basophils (%) (Auto) 0.1 % (0.0-2.0) % (0.0-2.0) Neutrophils # (Auto) 14.0 TH/MM3 TH/MM3 (1.8-7.7) (1.8-7.7) Lymphocytes # (Auto) 0.4 TH/MM3 TH/MM3 (1.0-4.8) (1.0-4.8) Monocytes # (Auto) 0.5 TH/MM3 TH/MM3 (0-0.9) (0-0.9) Eosinophils # (Auto) 0.1 TH/MM3 TH/MM3 (0-0.4) (0-0.4) Basophils # (Auto) 0.0 TH/MM3 TH/MM3 (0-0.2) (0-0.2) CBC Comment AUTO DIFF AUTO DIFF Differential Total Cells 100 Counted Neutrophils % (Manual) 48 % (16-70) Band Neutrophils % 35 % (0-6) Lymphocytes % 6 % (9-44) Monocytes % 4 % (0-8) Neutrophils # (Manual) 13.5 TH/MM3 (1.8-7.7) Metamyelocytes 5 % (0-1) Myelocytes 2 % (0-0) Differential Comment FINAL DIFF MANUAL Atypical Lymphocytes % (0-0) Sodium Level 129 MEQ/L (136-145) Potassium Level 2.8 MEQ/L (3.5-5.1) Chloride Level 91 MEQ/L (98-107) Carbon Dioxide Level 22.4 MEQ/L (21.0-32.0) Anion Gap 16 MEQ/L (5-15) Blood Urea Nitrogen 93 MG/DL (7-18) Creatinine 2.32 MG/DL (0.50-1.00) Estimat Glomerular Filtration 22 ML/MIN (>89) Rate Random Glucose 198 MG/DL (74-106) Calcium Level 7.8 MG/DL (8.5-10.1) Phosphorus Level 3.5 MG/DL (2.5-4.9) Magnesium Level 2.0 MG/DL (1.5-2.5) Total Bilirubin 1.3 MG/DL (0.2-1.0) Aspartate Amino Transf 35 U/L (15-37) (AST/SGOT) Alanine Aminotransferase 16 U/L (10-53) (ALT/SGPT) Alkaline Phosphatase 92 U/L (45-117) Total Protein 6.0 GM/DL (6.4-8.2) Albumin 2.1 GM/DL (3.4-5.0) . (Freda Nathan) Result Diagram: 04/20/17 0946 04/20/17 0510 Microbiology Microbiology Date/Time Procedure Status Source Growth 04/18/17 10:56 Aerobic Blood Culture - Preliminary Resulted Blood Peripheral NO GROWTH IN 1 DAY 04/18/17 10:56 Anaerobic Blood Culture - Preliminary Resulted Blood Peripheral NO GROWTH IN 1 DAY 04/18/17 11:05 Aerobic Blood Culture - Preliminary Resulted Blood Peripheral NO GROWTH IN 1 DAY 04/18/17 11:05 Anaerobic Blood Culture - Preliminary Resulted Blood Peripheral NO GROWTH IN 1 DAY 04/18/17 16:27 Gram Stain - Final Resulted Sputum Expectorated Sputum 04/18/17 16:27 Sputum Culture - Preliminary Resulted Gram Negative Santiago . Imaging Last 72 hours Impressions Chest X-Ray 04/19/17 0600 Signed Impressions: Service Date/Time: Wednesday, April 19, 2017 03:51 - CONCLUSION: No acute cardiopulmonary disease. Therese Javier MD . Procedures 04/08/2017: Endotracheal intubation for acute hypercapnic respiratory failure . (Freda Nathan) Assessment and Plan Disease Oriented Problem List: (1) Chronic obstructive pulmonary disease (2) SCLC (small cell lung carcinoma) (3) Atrial fibrillation (4) Anxiety (5) Hypertension (6) Metastases to the liver Symptom Scale: (1) Anxiety Comment: History of underlying anxiety disorder, likely exacerbated secondary to patient's newly diagnosed metastatic small cell lung cancer and acute COPD exacerbation. Currently well-managed. . (2) Shortness of breath Comment: Patient remains intubated on mechanical ventilator. Patient has consented to tracheostomy, procedure postponed yesterday due to low platelet level of 42. . (3) Pain Comment: No nonverbal signs are symptoms of pain are observed on exam or reported by nursing staff. Possible causes of pain may include SMLC stents of metastatic disease to the liver, dyspnea, invasive lines, immobility, bedbound status, Reddy catheter etc. . Pertinent Non-Medical Issues Psychosocial: Patient is originally from [facility]. She has 2 sisters and one brother with whom she is very close, all live locally. Patient's passed with you years ago. The patient's daughter, Gabby, states they had not been together in 15 years but he was the love of her mother's life. She states her mother's health declined after his . She has 4 adult children (Vesta, Elva, Gabby and Wolf) between the ages of 23 and 31 years of age. Spiritual: Holiness allison Legal: Per [place] statutes, in the absence of written advanced directives healthcare proxy decision-making falls to the majority of the patient's for adult children. In reviewing notes, the patient previously verbalized that she wanted her "sister" to act in the role of the health care surrogate decision maker. However, the sister should she was referring to was not specified and the legal document was not completed. Ethical issues impacting care: No known ethical issues impacting care at this time . Important Contacts Yessenia Prasad, sister: [phone] Parul Fonseca, sister: Vesta Hook, daughter: [phone] Gabby Rogers, daughter: [phone] Elva Hook, daughter: [phone] Wolf Fonseca, son: No phone available . Prognosis Patient is a 51-year-old female with SCLC and extensive metastatic disease to the liver in January,. Patient also as advanced COPD. She was started on palliative chemotherapy in 02/2017; patient tolerated chemotherapy well and it appeared to be effective. Currently hospitalized with an acute COPD exacerbation. Patient remains sedated and intubated on mechanical ventilator, unable to tolerate CPAP trials. Goals remain aggressive, however patient's overall prognosis is poor. . Code Status: Full Code Plan * FULL CODE * Decision-making: Patient's sister, Yessenia Prasad, is designated as the healthcare surrogate decision maker. * Goals: Goals remain aggressive. * Met with patient's sister (Yessenia) and 3 of her children (Gabby, Wolf, Vesta) privately and can at patient's bedside. Also present Gladis Wan ( Oncology PA) and Clau Bucio (Palliative Care PLASMA CUTTING MACHINE OPERATOR). Updated patient and family on the patient's current clinical condition. Patient is not a candidate for further chemotherapy unless her current acute issues resolve and her performance status significantly improves. Both patient and her family indicate understanding that treatment is palliative, not curative. They are aware that the patient's overall prognosis is poor. Patient's CODE STATUS was also addressed; the process of cardiopulmonary resuscitation including compressions, ACLS medications, cardioversion and intubation/mechanical ventilation were discussed. Patient clearly indicating her goals will remain aggressive, despite her poor prognosis. She requests her CODE STATUS remain FULL CODE. Family members are supportive of patient's current medical treatment goals. * Dr. Martinez states patient's overall prognosis is poor, making recommendations for hospice * Symptom managementpain: Patient is currently sedated with propofol and fentanyl PRN. No nonverbal signs are symptoms of pain are observed on exam or reported by nursing staff. Possible causes of pain may include SCLC with extensive metastatic disease stents the liver, dyspnea, invasive lines, nausea/vomiting, immobility, bedbound status, Reddy catheter etc. Will continue to monitor; no recommendations at this time. * Symptom managementdyspnea: Patient remains intubated on mechanical ventilator secondary to acute hypercapnic respiratory failure. Apparently attempted extubation again over the weekend (04/17/17). Patient oxygen saturations remained stable, but she had to be reintubated after 15 minutes because she felt like she could catch her breath.Patient remains intubated on mechanical ventilator. Patient has consented to tracheostomy, procedure postponed yesterday due to low platelet level of 42. * Symptom managementanxiety: History of underlying anxiety disorder, likely exacerbated secondary to patient's newly diagnosed metastatic small cell lung cancer and acute COPD exacerbation. * Discussed with patient's nurse (Yusra), case management (Katy) and Dr. Schmitz. Possible discharge to [facility] per case management. * Palliative care will continue to follow this patient throughout her hospitalization to establish trust, assist with symptom management and clarification of medical treatment goals. . (Freda Nathan) Attestation To help prompt me to consider important information that might be impacting today's encounter and assessment, information from prior notes written by myself or my colleagues may have been "brought forward" into today's note. My signature on this note, however, is an attestation that I personally performed the exam, history, and/or decision-making noted today, and, unless otherwise indicated, the interactions with patient, family, and staff as well as the review of records all occurred today. I also attest that the listed assessment and stated plan reflect my best clinical judgment today based on the combination of historical information, prior notes, and today's exam/ interactions. When time spent is documented, it refers only to time spent today by the signer, or if indicated, combined time spent today by collaborating physician/nurse practitioner. . (Freda Nathan) Collaborating MD Comments . Chart reviewed. Case discussed with palliative care PLASMA CUTTING MACHINE OPERATOR. I have reviewed above PLASMA CUTTING MACHINE OPERATOR note and I concur. . (Paco Dash MD) Freda Nathan April 20, 2017 11:18 Paco Dash MD April 27, 2017 12:43
[2017-04-20 11:30] LABS: ALT (GPT) 42 U/L (10-53); ANION GAP 6 MEQ/L (5-15); AST (GOT) 11 U/L (15-37); BICARBONATE 34.8 MEQ/L (21.0-32.0); BLOOD UREA NITROGEN 21 MG/DL (7-18); CHLORIDE 106 MEQ/L (98-107); GLOMERULAR FILTRATION RATE 179 ML/MIN (>89); POTASSIUM 3.5 MEQ/L (3.5-5.1); SODIUM (NA) 147 MEQ/L (136-145)
[2017-04-20 11:34] LABS: ALKALINE PHOSPHATASE 50 U/L (45-117); MAGNESIUM 2.2 MG/DL (1.5-2.5); TOTAL BILIRUBIN ADULT 0.3 MG/DL (0.2-1.0)
[2017-04-20 11:46] LABS: BANDS 21 % (0-6); METAMYELOCYTES 2 % (0-1); NEUTROPHIL # MANUAL DIFF 2.8 TH/MM3 (1.8-7.7); POLYS (SEG NEUTROPHILS) 39 % (16-70); WBC DIFF SAMPLE 100
[2017-04-20 11:47] LABS: ACANTHOCYTES OCC (NORMAL); OVALOCYTES 1+ (NORMAL); PLATELET ESTIMATE SMEAR LOW (NORMAL); PLATELET MORPHOLOGY NORMAL (NORMAL)
[2017-04-20 11:48] LABS: SCAN/DIFF FINAL DIFF MANUAL
[2017-04-20] MEDS: INSULIN NovoLIN REGULAR SUPPLEMENTAL SCALE SQ SCH ×2 (12:00→17:25)
[2017-04-20] MEDS: FREE WATER G-TUBE SCH ×2 (12:15→21:00)
--- NOTE | 2017-04-20 12:25 | PD.ONC.PN ---
Subjective Subjective Remarks Afebrile overnight. Patient remains intubated. Trach placement on hold due to cytopenias. Family meeting today with patient's sister and children. Objective Data Date Time Temp Pulse Resp B/P Pulse Ox O2 Delivery O2 Flow Rate FiO2 04/20/17 11:02 99 30 04/20/17 07:41 30 04/20/17 07:41 100 30 04/20/17 06:00 96 04/20/17 05:30 101 04/20/17 05:00 105 04/20/17 04:30 94 04/20/17 04:08 100 30 04/20/17 04:00 96 04/20/17 04:00 98.7 96 14 85/54 100 04/20/17 04:00 96 04/20/17 04:00 30 04/20/17 03:30 106 04/20/17 03:00 107 04/20/17 03:00 107 04/20/17 03:00 107 14 105/69 100 04/20/17 02:30 108 04/20/17 02:00 105 21 111/62 100 04/20/17 02:00 105 04/20/17 02:00 105 04/20/17 01:53 100 30 04/20/17 01:30 109 04/20/17 01:05 103 04/20/17 01:00 104 04/20/17 00:30 101 04/20/17 00:00 102 04/20/17 00:00 102 04/20/17 00:00 98.0 102 14 93/52 100 04/20/17 00:00 30 04/19/17 22:07 100 30 04/19/17 22:00 116 04/19/17 20:14 100 30 04/19/17 20:00 30 04/19/17 20:00 98.0 103 14 101/67 100 04/19/17 20:00 103 04/19/17 18:00 105 04/19/17 17:00 107 04/19/17 16:00 109 04/19/17 16:00 98.2 109 14 93/60 98 04/19/17 16:00 30 04/19/17 14:41 100 30 04/19/17 14:00 118 04/19/17 13:00 110 04/20/17 04/20/17 04/20/17 07:00 15:00 23:00 Intake Total 1074 ml Output Total 850 ml Balance 224 ml Result Diagram: 04/20/17 0946 04/20/17 0946 Laboratory Results Laboratory Tests Test 04/19/17 04/20/17 04/20/17 16:56 05:10 09:46 Fibrinogen 230 mg/dL White Blood Count TH/MM3 4.5 TH/MM3 Red Blood Count MIL/MM3 2.88 MIL/MM3 Hemoglobin GM/DL 8.1 GM/DL Hematocrit % 25.3 % Mean Corpuscular Volume FL 87.9 FL Mean Corpuscular Hemoglobin PG 28.2 PG Mean Corpuscular Hemoglobin % 32.1 % Concent Red Cell Distribution Width % 19.5 % Platelet Count TH/MM3 37 TH/MM3 Mean Platelet Volume FL 9.4 FL Neutrophils (%) (Auto) % % Lymphocytes (%) (Auto) % % Monocytes (%) (Auto) % % Eosinophils (%) (Auto) % % Basophils (%) (Auto) % % Neutrophils # (Auto) TH/MM3 TH/MM3 Lymphocytes # (Auto) TH/MM3 TH/MM3 Monocytes # (Auto) TH/MM3 TH/MM3 Eosinophils # (Auto) TH/MM3 TH/MM3 Basophils # (Auto) TH/MM3 TH/MM3 CBC Comment AUTO DIFF Differential Total Cells 100 100 Counted Neutrophils % (Manual) % 39 % Band Neutrophils % % 21 % Lymphocytes % % 35 % Monocytes % % 3 % Neutrophils # (Manual) TH/MM3 2.8 TH/MM3 Metamyelocytes % 2 % Myelocytes % Differential Comment FINAL DIFF MANUAL Atypical Lymphocytes % Sodium Level MEQ/L 147 MEQ/L Potassium Level MEQ/L 3.5 MEQ/L Chloride Level MEQ/L 106 MEQ/L Carbon Dioxide Level MEQ/L 34.8 MEQ/L Anion Gap MEQ/L 6 MEQ/L Blood Urea Nitrogen MG/DL 21 MG/DL Creatinine MG/DL 0.38 MG/DL Estimat Glomerular Filtration ML/MIN 179 ML/MIN Rate Random Glucose MG/DL 170 MG/DL Calcium Level MG/DL 8.3 MG/DL Phosphorus Level MG/DL 2.3 MG/DL Magnesium Level MG/DL 2.2 MG/DL Total Bilirubin MG/DL 0.3 MG/DL Aspartate Amino Transf U/L 11 U/L (AST/SGOT) Alanine Aminotransferase U/L 42 U/L (ALT/SGPT) Alkaline Phosphatase U/L 50 U/L Total Protein GM/DL 5.4 GM/DL Albumin GM/DL 2.4 GM/DL Platelet Estimate LOW Platelet Morphology Comment NORMAL Ovalocytes 1+ Acanthocytes OCC Culture Results Microbiology Date/Time Procedure Status Source Growth 04/18/17 10:56 Aerobic Blood Culture - Preliminary Resulted Blood Peripheral NO GROWTH IN 2 DAYS 04/18/17 10:56 Anaerobic Blood Culture - Preliminary Resulted Blood Peripheral NO GROWTH IN 2 DAYS 04/18/17 11:05 Aerobic Blood Culture - Preliminary Resulted Blood Peripheral NO GROWTH IN 2 DAYS 04/18/17 11:05 Anaerobic Blood Culture - Preliminary Resulted Blood Peripheral NO GROWTH IN 2 DAYS 04/18/17 16:27 Gram Stain - Final Resulted Sputum Expectorated Sputum 04/18/17 16:27 Sputum Culture - Preliminary Resulted Gram Negative Santiago Administered Medications Medications (Trade) Dose Ordered Sig/Rossana Route PRN Reason Start Time Stop Time Status Last Admin Dose Admin Sodium Chloride (NS Flush) 2 ml BID IV FLUSH 04/07/17 09:00 04/20/17 09:48 Sodium Chloride (NS Flush) 2 ml UNSCH PRN IV FLUSH FLUSH AFTER USING IV ACCESS 04/07/17 01:00 04/15/17 13:12 Enoxaparin Sodium (Lovenox Inj) 40 mg Q24H SQ 04/07/17 01:00 Hold 04/17/17 23:38 Ondansetron HCl (Zofran Inj) 4 mg Q6H PRN IV NAUSEA 04/07/17 01:00 04/15/17 12:16 Calcium Carbonate (Tums Chew) 1,000 mg TID PRN CHEW DYSPEPSIA 04/07/17 01:00 04/19/17 13:17 Famotidine (Pepcid) 20 mg BID PO 04/07/17 09:00 Hold 04/18/17 09:14 Miscellaneous Information Patient in critical care unit? Ass... [id number] .XX 04/07/17 02:30 04/07/17 02:30 Potassium Phosphate (K-Phos) 2,000 mg Q4H PRN PO For Phosphorus < 2.5 mg/dL 04/08/17 10:45 04/10/17 12:52 Methylprednisolone Sodium Succinate (SoluMEDROL INJ) 40 mg Q8HR IVP 04/13/17 14:00 04/20/17 06:41 Glycerin (Glycerin Adult Supp) 2 gm BID PRN RECTAL CONSTIPATION 04/14/17 21:00 04/16/17 00:29 Nitroglycerin (Nitroglycerin 2% Oint) 2 inch Q6H PRN TOPICAL SBP>160, DBP>90 04/15/17 13:00 04/15/17 13:50 Hydralazine HCl (Apresoline Inj) 10 mg Q1H PRN IV PUSH SBP>160, DBP>90 04/15/17 13:00 04/15/17 13:12 Labetalol HCl (Trandate Inj) 10 mg Q1H PRN IV PUSH SBP>160, DBP>90, HR>65 04/15/17 13:00 04/15/17 13:49 Morphine Sulfate (Morphine Inj) 2 mg Q3H PRN IV PUSH PAIN SCALE 6 TO 10 04/15/17 13:00 04/15/17 13:01 Prochlorperazine Edisylate (Compazine Inj) 5 mg Q6H PRN IV PUSH nausea 04/15/17 13:00 04/15/17 13:11 Metoclopramide HCl (Reglan Inj) 5 mg Q8HR IV PUSH 04/15/17 14:00 04/20/17 06:40 Chlorhexidine Gluconate 15 ml 15 ml BID@08,20 MT 04/15/17 20:00 04/20/17 09:50 Propofol (Diprivan 1000 Mg/100ml Inj) 100 ml @ 0 mls/hr TITRATE IV 04/15/17 14:30 04/19/17 18:50 Lansoprazole (Prevacid Odt) 30 mg DAILY NG 04/19/17 09:00 04/20/17 09:48 Diltiazem HCl 30 mg 30 mg QID PO 04/19/17 18:00 04/20/17 09:48 Piperacillin Sod/ Tazobactam Sod (Zosyn 3.375 Gm Premix) 50 ml @ 100 mls/hr Q6H IV 04/20/17 08:00 04/20/17 09:49 Insulin Human Regular (NovoLIN R SUPPLEMENTAL SCALE) 1 Q6HR SQ 04/20/17 12:00 04/20/17 12:00 Water (Free Water) 250 ml Q12HR G-TUBE 04/20/17 12:15 04/20/17 12:15 Objective Remarks GENERAL: chronically ill female, supine in bed, intubated and awake. SKIN: Warm and dry. HEAD: Normocephalic. EYES: No injection or drainage. NECK: Supple, trachea midline. CARDIOVASCULAR: +S1/S2, tachy RESPIRATORY: anterior mathis with occasional wheeze. on mechanical ventilation GASTROINTESTINAL: Abdomen soft nondistended. EXTREMITIES: No cyanosis NEUROLOGICAL: intubated but awake. Assessment/Plan Problem List: (1) SCLC (small cell lung carcinoma) Status: Chronic Plan: 04/20: family meeting held along with palliative care WATER SYSTEMS DESIGNER's and patient's healthcare surrogate Yessenia and patient's children as well as patient. discussed patient's treatment up to this point and poor prognosis. discussed the terminal nature of her condition. patient wishes to remain full code and wants to proceed with trach. aggressive care to continue. family members questions answered. 04/19: remains intubated. prognosis poor. will call and speak with Yessenia, sister and set up a time to meet with palliative care. UPDATE: I spoke with Yessenia, the patient's sister and healthcare surrogate. will meet with her tomorrow at 10AM. Patient's daughter and other family members will be present. 04/16 was extubated yesterday. now reintubated after just 2 hrs. Had emesis. ? aspirated. Had Large BM per RN. Poor prognosis. Recommend hospice. 04/15: patient now extubated but having vomiting. will wait for PS to improve before resuming chemotherapy 04/14: Pt having low tidal volumes. No CPAP trials today. Palliative care consulted. She will not be a candidate for future chemo unless acute issues/ performance status significantly improves. 04/13: Pt did not tolerate CPAP trials today. Per RN last only 10 minutes. No chemo today. Continue IV Abx, steroids. 04/12: On Cefepime + solu-medrol. CPAP trials today. unable to resume chemo until current issues resolved 04/08/17: Continue supportive care with IV Abx, steroids. -- s/p C2 w/ carboplatin and etoposide on 04/05/17. Assessment 51 y/o female with history of small cell lung cancer admitted with COPD exacerbation. Attending Statement remains on vent, sedated. Poor prognosis. family and pt apparently wants to continue with aggressive treatment. Decline hospice. Thrombocytopenia is due to chemo. The exam, history, and the medical decision-making described in the above note were completed with the assistance of the mid-level provider. I reviewed and agree with the findings presented. I attest that I had a [id number] encounter with the patient on the same day, and personally performed and documented my assessment and findings in the medical record. Problem Qualifiers (1) SCLC (small cell lung carcinoma): Qualified Code: C34.90 - SCLC (small cell lung carcinoma), unspecified laterality Margo Wan April 20, 2017 12:25 Alyssa Martinez MD April 20, 2017 23:32
--- NOTE | 2017-04-20 12:42 | HHI.PR ---
Subjective Interval History awake alert and oriented on sedation vacation remains intubated family meeting this am: wants full aggressive care platelets continue to drop, no evidence of bleeding Vitals/Results Intake & Output 04/19/17 04/19/17 04/20/17 14:59 22:59 06:59 Intake Total 1036 ml 1122 ml 1074 ml Output Total 750 ml 1150 ml 850 ml Balance 286 ml -28 ml 224 ml IV Total 189 ml 535 ml 458 ml Tube Feeding 607 ml 467 ml 456 ml Other 240 ml 120 ml 160 ml Output Urine Total 750 ml 1150 ml 850 ml Tube Feeding Residual Discard 0 ml 0 ml # Bowel Movements 2 2 1 Vital Signs Vital Signs Date Time Temp Pulse Resp B/P Pulse Ox O2 Delivery O2 Flow Rate FiO2 04/20/17 11:02 99 30 04/20/17 07:41 30 04/20/17 07:41 100 30 04/20/17 06:00 96 04/20/17 05:30 101 04/20/17 05:00 105 04/20/17 04:30 94 04/20/17 04:08 100 30 04/20/17 04:00 96 04/20/17 04:00 98.7 96 14 85/54 100 04/20/17 04:00 96 04/20/17 04:00 30 04/20/17 03:30 106 04/20/17 03:00 107 04/20/17 03:00 107 04/20/17 03:00 107 14 105/69 100 04/20/17 02:30 108 04/20/17 02:00 105 21 111/62 100 04/20/17 02:00 105 04/20/17 02:00 105 04/20/17 01:53 100 30 04/20/17 01:30 109 04/20/17 01:05 103 04/20/17 01:00 104 04/20/17 00:30 101 04/20/17 00:00 102 04/20/17 00:00 102 04/20/17 00:00 98.0 102 14 93/52 100 04/20/17 00:00 30 04/19/17 22:07 100 30 04/19/17 22:00 116 04/19/17 20:14 100 30 04/19/17 20:00 30 04/19/17 20:00 98.0 103 14 101/67 100 04/19/17 20:00 103 04/19/17 18:00 105 04/19/17 17:00 107 04/19/17 16:00 109 04/19/17 16:00 98.2 109 14 93/60 98 04/19/17 16:00 30 04/19/17 14:41 100 30 04/19/17 14:00 118 04/19/17 13:00 110 CBC/BMP: 04/20/17 0946 04/20/17 0946 Lab Results Laboratory Tests Test 04/19/17 04/20/17 04/20/17 16:56 05:10 09:46 Fibrinogen 230 mg/dL White Blood Count TH/MM3 4.5 TH/MM3 Red Blood Count MIL/MM3 2.88 MIL/MM3 Hemoglobin GM/DL 8.1 GM/DL Hematocrit % 25.3 % Mean Corpuscular Volume FL 87.9 FL Mean Corpuscular Hemoglobin PG 28.2 PG Mean Corpuscular Hemoglobin % 32.1 % Concent Red Cell Distribution Width % 19.5 % Platelet Count TH/MM3 37 TH/MM3 Mean Platelet Volume FL 9.4 FL Neutrophils (%) (Auto) % % Lymphocytes (%) (Auto) % % Monocytes (%) (Auto) % % Eosinophils (%) (Auto) % % Basophils (%) (Auto) % % Neutrophils # (Auto) TH/MM3 TH/MM3 Lymphocytes # (Auto) TH/MM3 TH/MM3 Monocytes # (Auto) TH/MM3 TH/MM3 Eosinophils # (Auto) TH/MM3 TH/MM3 Basophils # (Auto) TH/MM3 TH/MM3 CBC Comment AUTO DIFF Differential Total Cells 100 100 Counted Neutrophils % (Manual) % 39 % Band Neutrophils % % 21 % Lymphocytes % % 35 % Monocytes % % 3 % Neutrophils # (Manual) TH/MM3 2.8 TH/MM3 Metamyelocytes % 2 % Myelocytes % Differential Comment FINAL DIFF MANUAL Atypical Lymphocytes % Sodium Level MEQ/L 147 MEQ/L Potassium Level MEQ/L 3.5 MEQ/L Chloride Level MEQ/L 106 MEQ/L Carbon Dioxide Level MEQ/L 34.8 MEQ/L Anion Gap MEQ/L 6 MEQ/L Blood Urea Nitrogen MG/DL 21 MG/DL Creatinine MG/DL 0.38 MG/DL Estimat Glomerular Filtration ML/MIN 179 ML/MIN Rate Random Glucose MG/DL 170 MG/DL Calcium Level MG/DL 8.3 MG/DL Phosphorus Level MG/DL 2.3 MG/DL Magnesium Level MG/DL 2.2 MG/DL Total Bilirubin MG/DL 0.3 MG/DL Aspartate Amino Transf U/L 11 U/L (AST/SGOT) Alanine Aminotransferase U/L 42 U/L (ALT/SGPT) Alkaline Phosphatase U/L 50 U/L Total Protein GM/DL 5.4 GM/DL Albumin GM/DL 2.4 GM/DL Platelet Estimate LOW Platelet Morphology Comment NORMAL Ovalocytes 1+ Acanthocytes OCC Physical Exam General General Appearance: Well Developed, Well Nourished, No Acute Distress, Comfortable Appearance Remarks intubated Eyes Eye Exam: Pupils Equal, Pupils Reactive Ears & Nose Ears & Nose Exam: Nasal Mucosa [place] Throat Throat Exam: Oral Mucosa [place] & Moist Neck Neck Exam: Neck Supple, Trachea Midline Pulmonary Resp Exam: No Distress, Decreased Bases Cardiology CV Exam: Good Perfusion, Tachycardia Gastrointestinal/Abdomen GI Exam: Soft, Non-Tender, Bowel Sounds Present, Distended Genitourinary Exam: Clear Urine Musculoskeletal MS Exam: Joints Intact Integumentary Skin Exam: Warm, Dry Extremeties Extremities Exam: Pedal Pulses Palpable, Trace Edema VTE Prophylaxis VTE Prophylaxis Meds: Lovenox Assessment/Plan Problem List: (1) Hypercapnic respiratory failure (2) Acute exacerbation of chronic obstructive pulmonary disease (COPD) (3) SCLC (small cell lung carcinoma) Plan: with liver mets (4) Hyperglycemia (5) Depression (6) A-fib (7) Hypertension Assessment/Plan Vent Management management as per pulmonary/critical care off sedation for now following commands plan for trach soon, procedure postponed sec to Low platelets Duonebs IV steroids empiric antibiotics cultures negative oncology following, input appreciated CT PE protocol reviewed reduction in size of mediastinal and hilar adenopathy. An reduction in size of left hepatic lobe metastasis. Severe emphysematous changes. no chemotherapy plans at this time, hospice recommended Leukopenia, monitor WBC continue tube feeding Bowel regimen Anemia post hydration will monitor hx afib, continue Cardizem via OGT remains SR/ST Thrombocytopenia: monitor platelets 37 today no active bleeding HIT Panel neg SCD DVT prophylaxis Pepcid for GI prophylaxis Palliative care following, goals remains aggressive. Input appreciated CM for dc planning, [facility] to transfer , if ok with Social Work Associate Full code condition guarded Labs reviewed D/W RN Problem Qualifiers (1) Hypercapnic respiratory failure: Qualified Code: J96.02 - Acute respiratory failure with hypercapnia (2) SCLC (small cell lung carcinoma): Qualified Code: C34.90 - SCLC (small cell lung carcinoma), unspecified laterality (3) Depression: Qualified Code: F32.9 - Depression, unspecified depression type (4) A-fib: Qualified Code: I48.91 - Atrial fibrillation, unspecified type (5) Hypertension: Qualified Code: I10 - Essential hypertension Kaylyn Gregory MD April 20, 2017 12:42
[2017-04-20 13:06] LABS: BLOOD GAS BASE EXCESS 7.8 mmol/L (-2-2); BLOOD GAS CARBOXYHEMOGLOBIN 1.9 % (0-4); BLOOD GAS HCO3 32 mmol/L (22-26); BLOOD GAS O2 HGB SATURATION 95 % (90-100); BLOOD GAS OXYGEN CONTENT 11.4 Vol % (12.0-20.0); BLOOD GAS PCO2 44 mmHg (38-42); BLOOD GAS PO2 103 mmHg (61-120); BLOOD GAS TOTAL HGB 8.4 G/DL (12.0-16.0); TEMP CORR TO 98.6
[2017-04-20 13:07] LABS: CRITICAL VALUE NO; DRAW SITE RT RADIAL; FIO2 30 %; NUMBER OF ARTERIAL PUNCTURES 1; OXYGEN DEVICE VENTILATOR; STAT NO; ULNAR PULSE PRESENT; VENT SETTINGS CPAP 5/10PS
[2017-04-20] MEDS: POTASSIUM PHOSPHATE MONOBASIC 500 MG TAB PO PRN (13:34)
[2017-04-20] MEDS ORDERED: RESP: ALBUTEROL 2.5 MG/IPRATROPIUM 0.5 MG NEB (PRN) NEB (14:00)
[2017-04-20] MEDS: RESP: ALBUTEROL 2.5 MG/IPRATROPIUM 0.5 MG NEB (SCH) NEB ×2 (14:22→19:23)
[2017-04-20] MEDS ORDERED: LORazepam 2 MG/ML VIAL IV PUSH ONE (14:45)
[2017-04-20] MEDS: TIOTROPIUM BROMIDE 18 MCG INH INH SCH (16:26)
[2017-04-20] MEDS: BUDESONIDE-FORMOTEROL 160/4.5 MCG INHALER INH SCH (16:26)
[2017-04-20 17:18] LABS: C. DIFF EPI 027 PRESUMPTIVE NEGATIVE (NEGATIVE); C. DIFF TOXIN PCR NEGATIVE (NEGATIVE)
[2017-04-20] MEDS: ONDANSETRON HCL 4 MG/2 ML VIAL IV PRN (17:21)
[2017-04-20] MEDS ORDERED: INSULIN DETEMIR 100 UNITS/ML VIAL SQ SCH (21:00)
[2017-04-20] MEDS: MELATONIN 5 MG TAB PO SCH (21:35)
[2017-04-20] MEDS: LORazepam 2 MG/ML VIAL IV PUSH PRN (21:35)
[2017-04-20] MEDS: PIPERACIL-TAZO 4.5 GM PREMIX 100 ML IV SCH (21:37)
[2017-04-21] VITALS (43 sets, daily range): BP systolic 72–130; BP diastolic 40–88; PULSE 85–112; RESP 5–34; TEMP 98.8–99.1; O2SAT 74–100
[2017-04-21] MEDS: PIPERACIL-TAZO 4.5 GM PREMIX 100 ML IV SCH ×4 (00:02→22:04)
[2017-04-21] MEDS: RESP: ALBUTEROL 2.5 MG/IPRATROPIUM 0.5 MG NEB (SCH) NEB ×7 (00:22→23:07)
[2017-04-21] MEDS: METOCLOPRAMIDE HCL 10 MG/2 ML VIAL IV PUSH SCH ×3 (05:33→22:06)
[2017-04-21] MEDS: methylPREDNISolone SOD SUCC 125 MG/2 ML VIAL IVP SCH ×3 (05:34→22:07)
[2017-04-21] MEDS: INSULIN NovoLIN REGULAR SUPPLEMENTAL SCALE SQ SCH ×5 (05:35→23:16)
[2017-04-21 05:38] LABS: AUTOMATED NEUTROPHIL # 2.6 TH/MM3 (1.8-7.7); BASOPHIL % 0.1 % (0.0-2.0); HEMATOCRIT 23.2 % (35.0-46.0); LYMPH % 10.2 % (9.0-44.0); LYMPHOCYTE # 0.3 TH/MM3 (1.0-4.8); MEAN CELL VOLUME 87.1 FL (80.0-100.0); MEAN CORPUSCULAR HGB CONC 33.3 % (32.0-36.0); NEUT % 85.7 % (16.0-70.0); PLATELET COUNT 33 TH/MM3 (150-450); RED BLOOD COUNT 2.67 MIL/MM3 (4.00-5.30); RED CELL DISTRIBUTION WIDTH 18.9 % (11.6-17.2)
[2017-04-21 05:43] LABS: HEMO FLAGS DIFF FINAL
[2017-04-21 06:04] LABS: ALKALINE PHOSPHATASE 50 U/L (45-117); ALT (GPT) 38 U/L (10-53); ANION GAP 6 MEQ/L (5-15); AST (GOT) 11 U/L (15-37); BICARBONATE 32.2 MEQ/L (21.0-32.0); BLOOD UREA NITROGEN 15 MG/DL (7-18); CHLORIDE 104 MEQ/L (98-107); GLOMERULAR FILTRATION RATE 235 ML/MIN (>89); MAGNESIUM 2.2 MG/DL (1.5-2.5); POTASSIUM 4.4 MEQ/L (3.5-5.1); SODIUM (NA) 142 MEQ/L (136-145); TOTAL BILIRUBIN ADULT 0.5 MG/DL (0.2-1.0)
[2017-04-21] MEDS: RESP: BUDESONIDE 0.5 MG/2 ML NEB NEB SCH (07:26)
[2017-04-21] MEDS: CHLORHEXIDINE 0.12% (ORAL KIT) 15 ML CUP MT SCH ×2 (08:00→20:00)
[2017-04-21] MEDS: FREE WATER G-TUBE SCH ×2 (08:03→21:00)
--- NOTE | 2017-04-21 08:12 | HHI.CCPN ---
Subjective Remarks/Hospital Course 51-year-old female with past medical history of small cell lung cancer with liver metastases diagnosed in January 2017, tobacco abuse. She has been on palliative chemotherapy since March 08. She presented to [facility] emergency department on 04/07/17 with shortness of breath and has been treated for COPD exacerbation with nebs, Solu-Medrol, cefepime and azithromycin. She was placed on BiPAP and initially had some response. However she refused BiPAP and has becoming progressively lethargic through the course of the evening. An ABG was obtained and she has acute hypercapnic respiratory failure with pH 7.12/PaCO2 116/PA O2 of 101. Her RN discussed code status with her earlier and patient stated "intubate me if I need it". Further history is limited due to patient's altered mental status secondary to hypercapnic respiratory failure. CTA 04/07 was negative for pulmonary embolism. 04/08: CPAP trials attempted patient extremely anxious, unsuccessful. Plan to to transition to Precedex infusion for CPAP trials and weaning. ABG this a.m. 7.34/63/205/34/7.9, but patient gets extremely anxious when CPAP trials were initiated. 04/09 Patient is sedated with Diprivan and intubated. Afebrile. 04/10:Afebrile. Notably anxious this afternoon. Patient placed on Precedex infusion CPAP trials initiated. 04/11: Continue attempts at CPAP trials, one Precedex unsuccessful. Patient becomes extremely anxious despite Xanax. Patient now continues on propofol sedation for mechanical ventilation synchrony. 04/12: Medications readjusted today the patient continues on CPAP trials greater than 6 hours. Sodium level was noted to continue to be elevated free water flushes added to medication regimen. Off sedation the patient continues to be a GCS of 11 T. 04/13: Lasted only 10 minutes on PSV trial today. Continues to be on propofol and fentanyl drips for vent synchrony. Tolerating tube feeding. Positive BM. 04/14: Resting in bed. Currently not tolerating PSV trials. Arousable. Moves all 4 extremities spontaneously. No bowel movement. 04/15: Seen with Dr. Zhu. No acute distress. Awake and alert and following commands. Currently afebrile. 04/16: Attempt x-rays yesterday. Lasted 2 hours before reintubation. Intractable nausea and vomiting. CT abdomen pelvis 04/15 revealed ductal dilatation is contracted gallbladder with stone. LFTs slightly elevated. Recheck in this AM. Arousable and follows commands on the ventilator. Positive BM overnight. 04/17: Attempt extubation. Lasted 15 minutes before reintubation due to distress. Saturations okay but "cannot catch breath". FiO2 30% and had excellent RSBI of around 30 and nif of -47. Vocal cords looked normal. Subjective: 04/18: Currently resting in bed with FiO2 30%. Afebrile. Tolerating tube feeds. No changes past 24 hours. Platelets are trending downward. Lovenox held and heparin antibody sent 04/19 Patient remains sedated with Diprivan and intubated. Afebrile. Tolerating tube feeds. 04/20 No events overnight. Afebrile. Sedated and intubated. 04/21 PAtient s/p extubation yesterday on 2L oxygen with good sats. Afebrile. Awake and alert. Objective Vital Signs Date Time Temp Pulse Resp B/P Pulse Ox O2 Delivery O2 Flow Rate FiO2 04/21/17 07:28 100 Nasal Cannula 2.00 04/21/17 06:00 89 04/21/17 04:00 98.9 20 100/67 04/21/17 03:10 30 Intake and Output 04/20/17 04/20/17 04/21/17 08:00 16:00 00:00 Intake Total 1074 ml 755 ml 100 ml Output Total 850 ml 575 ml 1750 ml Balance 224 ml 180 ml -1650 ml Result Diagram: 04/21/17 0454 04/21/17 0454 Other Results Laboratory Tests Test 04/20/17 04/20/17 04/20/17 04/21/17 09:46 13:00 16:16 04:54 White Blood Count 4.5 TH/MM3 3.0 TH/MM3 Red Blood Count 2.88 MIL/MM3 2.67 MIL/MM3 Hemoglobin 8.1 GM/DL 7.7 GM/DL Hematocrit 25.3 % 23.2 % Mean Corpuscular Volume 87.9 FL 87.1 FL Mean Corpuscular Hemoglobin 28.2 PG 29.0 PG Mean Corpuscular Hemoglobin 32.1 % 33.3 % Concent Red Cell Distribution Width 19.5 % 18.9 % Platelet Count 37 TH/MM3 33 TH/MM3 Mean Platelet Volume 9.4 FL 9.2 FL Neutrophils (%) (Auto) % 85.7 % Lymphocytes (%) (Auto) % 10.2 % Monocytes (%) (Auto) % 4.0 % Eosinophils (%) (Auto) % 0.0 % Basophils (%) (Auto) % 0.1 % Neutrophils # (Auto) TH/MM3 2.6 TH/MM3 Lymphocytes # (Auto) TH/MM3 0.3 TH/MM3 Monocytes # (Auto) TH/MM3 0.1 TH/MM3 Eosinophils # (Auto) TH/MM3 0.0 TH/MM3 Basophils # (Auto) TH/MM3 0.0 TH/MM3 CBC Comment AUTO DIFF DIFF FINAL Differential Total Cells 100 Counted Neutrophils % (Manual) 39 % Band Neutrophils % 21 % Lymphocytes % 35 % Monocytes % 3 % Neutrophils # (Manual) 2.8 TH/MM3 Metamyelocytes 2 % Differential Comment FINAL DIFF MANUAL Platelet Estimate LOW Platelet Morphology Comment NORMAL Ovalocytes 1+ Acanthocytes OCC Sodium Level 147 MEQ/L 142 MEQ/L Potassium Level 3.5 MEQ/L 4.4 MEQ/L Chloride Level 106 MEQ/L 104 MEQ/L Carbon Dioxide Level 34.8 MEQ/L 32.2 MEQ/L Anion Gap 6 MEQ/L 6 MEQ/L Blood Urea Nitrogen 21 MG/DL 15 MG/DL Creatinine 0.38 MG/DL 0.30 MG/DL Estimat Glomerular Filtration 179 ML/MIN 235 ML/MIN Rate Random Glucose 170 MG/DL 141 MG/DL Calcium Level 8.3 MG/DL 8.9 MG/DL Phosphorus Level 2.3 MG/DL 3.8 MG/DL Magnesium Level 2.2 MG/DL 2.2 MG/DL Total Bilirubin 0.3 MG/DL 0.5 MG/DL Aspartate Amino Transf 11 U/L 11 U/L (AST/SGOT) Alanine Aminotransferase 42 U/L 38 U/L (ALT/SGPT) Alkaline Phosphatase 50 U/L 50 U/L Total Protein 5.4 GM/DL 5.5 GM/DL Albumin 2.4 GM/DL 2.4 GM/DL Blood Gas Puncture Site RT RADIAL Blood Gas Patient Temperature 98.6 Blood Gas HCO3 32 mmol/L Blood Gas Base Excess 7.8 mmol/L Blood Gas Oxygen Saturation 95 % Arterial Blood pH 7.47 Arterial Blood Partial 44 mmHg Pressure CO2 Arterial Blood Partial 103 mmHg Pressure O2 Arterial Blood Oxygen Content 11.4 Vol % Arterial Blood 1.9 % Carboxyhemoglobin Arterial Blood Methemoglobin 1.0 % Blood Gas Hemoglobin 8.4 G/DL Oxygen Delivery Device VENTILATOR Blood Gas Ventilator Setting CPAP 5/10PS Blood Gas Inspired Oxygen 30 % Stool C. difficile Toxin (PCR) NEGATIVE Stl C. difficile Toxin PRESUMPTIVE Epiderm 027 NEGATIVE Imaging Last Impressions Chest X-Ray 04/19/17 0600 Signed Impressions: Service Date/Time: Wednesday, April 19, 2017 03:51 - CONCLUSION: No acute cardiopulmonary disease. Therese Javier MD Cholangiopancreatography MRI 04/16/17 0000 Signed Impressions: Service Date/Time: Sunday, April 16, 2017 09:35 - CONCLUSION: 1. Unremarkable examination of the biliary tree. No evidence of ductal dilatation. 2. Cholelithiasis 3. Indeterminate lesions in liver as described above. Malignancy is not excluded. Administration of contrast would be helpful to further delineate these abnormalities Son Bryson MD Abdomen/Pelvis CT 04/15/17 0000 Signed Impressions: Service Date/Time: March 17:45 - CONCLUSION: 1. Biliary dilatation as described above. 2. Mass is again identified laterally in the right lobe. Central mass seen previously is poorly demonstrated on today's exam because of phase of the contrast. 3. Gallstones around a contracted gallbladder. Fred Vieyra MD FACR Abdomen X-Ray 04/15/17 0000 Signed Impressions: Service Date/Time: March 13:34 - CONCLUSION: Normal examination. Tomasz New MD CT Angiography 04/07/17 0031 Signed Impressions: Service Date/Time: Friday, April 07, 2017 01:13 - CONCLUSION: 1. No pulmonary emboli. 2. Reduction in size of the mediastinal and hilar adenopathy. 3. Reduction in size of the left hepatic lobe metastasis. 4. Severe emphysematous changes. Roberth Lockett Jr., MD Objective Remarks GENERAL: Patient is 51 yo lying in bed in NAD SKIN: Warm and dry. HEAD: Normocephalic. EYES: No scleral icterus. No injection or drainage. NECK: Supple, trachea midline. No JVD or lymphadenopathy. CARDIOVASCULAR: Regular rate and rhythm without murmurs, gallops, or rubs. RESPIRATORY: Breath sounds equal bilaterally. No accessory muscle use. GASTROINTESTINAL: Abdomen soft, non-tender, nondistended. MUSCULOSKELETAL: No cyanosis, or edema. Neuro: Awake and alert Date of Insertion: April 07, 2017 A/P Assessment and Plan NEURO/PSYCH: Anxiety disorder NOS Monitor neuro status and avoid sedatives RESP: Acute hypercapnic respiratory failure COPD exacerbation Severe emphysematous COPD Continue with oxygen keep sat >92% Bronchodilators ( Duoneb, Pulmicort, Symbicort, Spiriva) Continue Solu-Medrol 40 mg IV every 8 hours Pulmonology following, Dr. Zhu CTA 04/07 significant/severe pulmonary emphysema, decreasing mediastinal lymphadenopathy. Decrease in size of hepatic mass CXR 04/19- No acute disease NIPPV PRN during day and nocturnally qhs. CV: Hypertension Dyslipidemia History of atrial fibrillation Monitor HR and BP keep MAP>65mmHg Continue Cardizem 30 mg QID, resume Lipitor 20mg QD 2-D echo 02/12 revealed EF 55-60%. No regional wall motion abnormality. GI: Mild protein calorie malnutrition Speech eval, diet per speech CT abdomen/pelvis 04/15 Revealed contracted gallbladder. Ductal dilatation biliary system/pancreas noted MRCP essentially normal. GI is following Prevacid for GI prophylaxis Colace/Senokot twice a day for bowel regimen /Renal: Monitor renal function, I/O's, electrolytes replacement per protocol. ID: Completed cefepime and azithromycin course. Continue with Zosyn. Monitor for signs of infections (Fever, WBC) blood and urine culture- NGTD sputum 04/18- GNR HEME/ONC: Small cell lung cancer with liver metastases on palliative chemotherapy Leukopenia Normocytic anemia Thrombocytopenia Monitor CBC Hematology following, Dr. Martinez Not a candidate for chemotherapy until extubated Noted consultation a palliative care per hematology yesterday. Remains full code Lovenox on hold. Hit panel negative ENDO: Acute hyperglycemia of critical illness On SSI medium scale, hold Levemir as patient is NPO Access - Right Port-A-Cath Prophylaxis - GI -Prevacid - DVT - SCD/Lovenox sq on hold PT eval and treat Level 3 . Kareem Schmitz MD April 21, 2017 08:12
[2017-04-21] MEDS: DILTIAZEM HCL 30 MG TAB PO SCH ×4 (08:20→22:05)
[2017-04-21] MEDS: LANSOPRAZOLE SOLUTAB 30 MG TAB NG SCH (08:20)
[2017-04-21] MEDS: SODIUM CHLORIDE 0.9% FLUSH 10 ML FLUSH IV FLUSH SCH ×2 (08:21→22:05)
[2017-04-21] MEDS: BUDESONIDE-FORMOTEROL 160/4.5 MCG INHALER INH SCH ×2 (10:05→22:04)
[2017-04-21] MEDS: TIOTROPIUM BROMIDE 18 MCG INH INH SCH (10:05)
--- NOTE | 2017-04-21 10:35 | PD.ONC.PN ---
Subjective Subjective Remarks Tmax 99.4 overnight. Pt extubated. States she "feels much better". Asking to go home. Objective Data Date Time Temp Pulse Resp B/P Pulse Ox O2 Delivery O2 Flow Rate FiO2 04/21/17 07:28 100 Nasal Cannula 2.00 04/21/17 06:45 98 Nasal Cannula 3.00 04/21/17 06:00 89 04/21/17 04:00 98.9 97 20 100/67 100 04/21/17 04:00 93 04/21/17 03:10 98 30 04/21/17 02:45 85 27 98 04/21/17 02:45 85 27 98 04/21/17 02:30 89 29 83/47 99 04/21/17 02:15 94 30 98 04/21/17 02:15 94 30 98 04/21/17 02:00 101 31 93/54 99 04/21/17 02:00 93 04/21/17 02:00 101 31 93/54 99 04/21/17 01:45 96 33 99 04/21/17 01:45 96 33 99 04/21/17 01:37 89 33 84/48 98 04/21/17 01:37 89 33 84/48 98 04/21/17 01:31 93 32 72/40 97 04/21/17 01:31 93 32 72/40 97 04/21/17 01:30 93 31 97 04/21/17 01:30 93 31 97 04/21/17 01:15 93 30 97 04/21/17 01:15 93 30 97 04/21/17 01:00 96 31 90/54 95 04/21/17 01:00 96 31 90/54 95 04/21/17 00:45 95 33 95 04/21/17 00:45 95 33 95 04/21/17 00:30 92 32 95/52 96 04/21/17 00:30 92 32 95/52 96 04/21/17 00:23 99 30 04/21/17 00:15 93 33 100 04/21/17 00:15 93 33 100 04/21/17 00:00 93 34 102/58 100 04/21/17 00:00 93 34 102/58 100 04/21/17 00:00 99.1 91 16 102/58 100 04/21/17 00:00 91 04/20/17 22:00 105 04/20/17 20:00 99.4 122 22 162/88 99 04/20/17 20:00 122 04/20/17 19:23 98 30 04/20/17 19:00 99 Bi-Pap 30 04/20/17 18:00 116 04/20/17 17:15 100 04/20/17 17:15 Bi-Pap 30 04/20/17 16:42 Nasal Cannula 2.00 04/20/17 16:42 100 Nasal Cannula 2.00 04/20/17 16:00 104 04/20/17 16:00 99.2 104 19 122/66 99 04/20/17 15:40 Bi-Pap 30 04/20/17 15:40 65 30 04/20/17 14:22 Nasal Cannula 2.00 04/20/17 14:20 100 Nasal Cannula 2.00 04/20/17 14:20 100 Nasal Cannula 2 04/20/17 14:00 110 04/20/17 12:00 114 04/20/17 12:00 99.7 114 24 122/70 100 04/20/17 12:00 30 04/20/17 11:02 99 30 04/21/17 04/21/17 04/21/17 07:00 15:00 23:00 Intake Total 100 ml Output Total 550 ml Balance -450 ml Result Diagram: 04/21/17 0454 04/21/17 0454 Laboratory Results Laboratory Tests Test 04/20/17 04/20/17 04/21/17 13:00 16:16 04:54 Blood Gas Puncture Site RT RADIAL Blood Gas Patient Temperature 98.6 Blood Gas HCO3 32 mmol/L Blood Gas Base Excess 7.8 mmol/L Blood Gas Oxygen Saturation 95 % Arterial Blood pH 7.47 Arterial Blood Partial 44 mmHg Pressure CO2 Arterial Blood Partial 103 mmHg Pressure O2 Arterial Blood Oxygen Content 11.4 Vol % Arterial Blood 1.9 % Carboxyhemoglobin Arterial Blood Methemoglobin 1.0 % Blood Gas Hemoglobin 8.4 G/DL Oxygen Delivery Device VENTILATOR Blood Gas Ventilator Setting CPAP 5/10PS Blood Gas Inspired Oxygen 30 % Stool C. difficile Toxin (PCR) NEGATIVE Stl C. difficile Toxin PRESUMPTIVE Epiderm 027 NEGATIVE White Blood Count 3.0 TH/MM3 Red Blood Count 2.67 MIL/MM3 Hemoglobin 7.7 GM/DL Hematocrit 23.2 % Mean Corpuscular Volume 87.1 FL Mean Corpuscular Hemoglobin 29.0 PG Mean Corpuscular Hemoglobin 33.3 % Concent Red Cell Distribution Width 18.9 % Platelet Count 33 TH/MM3 Mean Platelet Volume 9.2 FL Neutrophils (%) (Auto) 85.7 % Lymphocytes (%) (Auto) 10.2 % Monocytes (%) (Auto) 4.0 % Eosinophils (%) (Auto) 0.0 % Basophils (%) (Auto) 0.1 % Neutrophils # (Auto) 2.6 TH/MM3 Lymphocytes # (Auto) 0.3 TH/MM3 Monocytes # (Auto) 0.1 TH/MM3 Eosinophils # (Auto) 0.0 TH/MM3 Basophils # (Auto) 0.0 TH/MM3 CBC Comment DIFF FINAL Differential Comment Sodium Level 142 MEQ/L Potassium Level 4.4 MEQ/L Chloride Level 104 MEQ/L Carbon Dioxide Level 32.2 MEQ/L Anion Gap 6 MEQ/L Blood Urea Nitrogen 15 MG/DL Creatinine 0.30 MG/DL Estimat Glomerular Filtration 235 ML/MIN Rate Random Glucose 141 MG/DL Calcium Level 8.9 MG/DL Phosphorus Level 3.8 MG/DL Magnesium Level 2.2 MG/DL Total Bilirubin 0.5 MG/DL Aspartate Amino Transf 11 U/L (AST/SGOT) Alanine Aminotransferase 38 U/L (ALT/SGPT) Alkaline Phosphatase 50 U/L Total Protein 5.5 GM/DL Albumin 2.4 GM/DL Culture Results Microbiology Date/Time Procedure Status Source Growth 04/18/17 10:56 Aerobic Blood Culture - Preliminary Resulted Blood Peripheral NO GROWTH IN 2 DAYS 04/18/17 10:56 Anaerobic Blood Culture - Preliminary Resulted Blood Peripheral NO GROWTH IN 2 DAYS 04/18/17 11:05 Aerobic Blood Culture - Preliminary Resulted Blood Peripheral NO GROWTH IN 2 DAYS 04/18/17 11:05 Anaerobic Blood Culture - Preliminary Resulted Blood Peripheral NO GROWTH IN 2 DAYS 04/18/17 16:27 Gram Stain - Final Resulted Sputum Expectorated Sputum 04/18/17 16:27 Sputum Culture - Preliminary Resulted Gram Negative Santiago 04/19/17 16:16 Stool Occult Blood (RAJEEV) Received Stool Stool Pending Administered Medications Medications (Trade) Dose Ordered Sig/Rossana Route PRN Reason Start Time Stop Time Status Last Admin Dose Admin Sodium Chloride (NS Flush) 2 ml BID IV FLUSH 04/07/17 09:00 04/21/17 08:21 Sodium Chloride (NS Flush) 2 ml UNSCH PRN IV FLUSH FLUSH AFTER USING IV ACCESS 04/07/17 01:00 04/15/17 13:12 Enoxaparin Sodium (Lovenox Inj) 40 mg Q24H SQ 04/07/17 01:00 Hold 04/17/17 23:38 Ondansetron HCl (Zofran Inj) 4 mg Q6H PRN IV NAUSEA 04/07/17 01:00 04/20/17 17:21 Calcium Carbonate (Tums Chew) 1,000 mg TID PRN CHEW DYSPEPSIA 04/07/17 01:00 04/19/17 13:17 Famotidine (Pepcid) 20 mg BID PO 04/07/17 09:00 Hold 04/18/17 09:14 Miscellaneous Information Patient in critical care unit? Ass... [id number] .XX 04/07/17 02:30 04/07/17 02:30 Potassium Bicarb/ Potassium Chloride (K-Lyte Cl Eff) 50 meq UNSCH PRN PO For Potassium 3.3 - 3.5 mEq/L 04/08/17 10:45 04/20/17 13:34 Potassium Phosphate (K-Phos) 2,000 mg Q4H PRN PO For Phosphorus < 2.5 mg/dL 04/08/17 10:45 04/20/17 13:34 Methylprednisolone Sodium Succinate (SoluMEDROL INJ) 40 mg Q8HR IVP 04/13/17 14:00 04/21/17 05:34 Glycerin (Glycerin Adult Supp) 2 gm BID PRN RECTAL CONSTIPATION 04/14/17 21:00 04/16/17 00:29 Nitroglycerin (Nitroglycerin 2% Oint) 2 inch Q6H PRN TOPICAL SBP>160, DBP>90 04/15/17 13:00 04/15/17 13:50 Hydralazine HCl (Apresoline Inj) 10 mg Q1H PRN IV PUSH SBP>160, DBP>90 04/15/17 13:00 04/15/17 13:12 Labetalol HCl (Trandate Inj) 10 mg Q1H PRN IV PUSH SBP>160, DBP>90, HR>65 04/15/17 13:00 04/15/17 13:49 Morphine Sulfate (Morphine Inj) 2 mg Q3H PRN IV PUSH PAIN SCALE 6 TO 10 04/15/17 13:00 04/15/17 13:01 Prochlorperazine Edisylate (Compazine Inj) 5 mg Q6H PRN IV PUSH nausea 04/15/17 13:00 04/15/17 13:11 Metoclopramide HCl (Reglan Inj) 5 mg Q8HR IV PUSH 04/15/17 14:00 04/21/17 05:33 Chlorhexidine Gluconate (Peridex 0.12% Liq) 15 ml BID@08,20 MT 04/15/17 20:00 04/20/17 09:50 Lansoprazole (Prevacid Odt) 30 mg DAILY NG 04/19/17 09:00 04/21/17 08:20 Diltiazem HCl (Cardizem) 30 mg QID PO 04/19/17 18:00 04/21/17 08:20 Insulin Human Regular (NovoLIN R SUPPLEMENTAL SCALE) 1 Q6HR SQ 04/20/17 12:00 04/21/17 00:00 Water (Free Water) 250 ml Q12HR G-TUBE 04/20/17 12:15 04/20/17 12:15 Tiotropium [place] (Spiriva Inh) 18 mcg DAILY INH 04/20/17 14:00 04/21/17 10:05 Budesonide/ Formoterol Fumarate 2 puff 2 puff Q12HR INH 04/20/17 14:00 04/21/17 10:05 Piperacillin Sod/ Tazobactam Sod (Zosyn 4.5 Gm Premix) 100 ml @ 200 mls/hr Q6H IV 04/20/17 20:00 04/21/17 08:20 Melatonin (Melatonin) 5 mg HS PO 04/20/17 21:00 04/20/17 21:35 Lorazepam (Ativan Inj) 0.5 mg Q8H PRN IV PUSH BIPAP TOLERANCE/ANXIETY 04/20/17 20:45 04/20/17 21:35 Objective Remarks GENERAL: Chronically ill appearing female, sitting up in bed in no distress. On NC. SKIN: Warm and dry. HEAD: Normocephalic. +Alopecia. EYES: No injection or drainage. NECK: Supple, trachea midline. CARDIOVASCULAR: +S1/S2, tachy. RESPIRATORY: Anterior mathis diminished. On 2L NC. Breathing unlabored. GASTROINTESTINAL: Abdomen soft nondistended. EXTREMITIES: No cyanosis. No edema. NEUROLOGICAL: Pt awake, alert. Moving all extremities. Normal speech. Assessment/Plan Problem List: (1) SCLC (small cell lung carcinoma) Status: Chronic Plan: 04/21: Pt extubated. On 2L NC. Will continue to monitor. Continue Abx. Pt will need extensive physical conditioning before she will be a candidate for more chemotherapy. 04/20: family meeting held along with palliative care [employer]'s and patient's healthcare surrogate Yessenia and patient's children as well as patient. discussed patient's treatment up to this point and poor prognosis. discussed the terminal nature of her condition. patient wishes to remain full code and wants to proceed with trach. aggressive care to continue. family members questions answered. 04/19: remains intubated. prognosis poor. will call and speak with Yessenia, sister and set up a time to meet with palliative care. UPDATE: I spoke with Yessenia, the patient's sister and healthcare surrogate. will meet with her tomorrow at 10AM. Patient's daughter and other family members will be present. 04/16 was extubated yesterday. now reintubated after just 2 hrs. Had emesis. ? aspirated. Had Large BM per RN. Poor prognosis. Recommend hospice. 04/15: patient now extubated but having vomiting. will wait for PS to improve before resuming chemotherapy 04/14: Pt having low tidal volumes. No CPAP trials today. Palliative care consulted. She will not be a candidate for future chemo unless acute issues/ performance status significantly improves. 04/13: Pt did not tolerate CPAP trials today. Per RN last only 10 minutes. No chemo today. Continue IV Abx, steroids. 04/12: On Cefepime + solu-medrol. CPAP trials today. unable to resume chemo until current issues resolved 04/08/17: Continue supportive care with IV Abx, steroids. -- s/p C2 w/ carboplatin and etoposide on 04/05/17. Assessment 51 y/o female with history of small cell lung cancer admitted with COPD exacerbation. Attending Statement pt is extubated but letargic. pt is very deconditioned. will need PT. resume chemo outpt once pt regain some strength. The exam, history, and the medical decision-making described in the above note were completed with the assistance of the mid-level provider. I reviewed and agree with the findings presented. I attest that I had a [id number] encounter with the patient on the same day, and personally performed and documented my assessment and findings in the medical record. Problem Qualifiers (1) SCLC (small cell lung carcinoma): Qualified Code: C34.90 - SCLC (small cell lung carcinoma), unspecified laterality Daisy Marquez April 21, 2017 10:35 Alyssa Martinez MD April 21, 2017 21:52
--- NOTE | 2017-04-21 13:38 | HHI.PR ---
Subjective Interval History awake alert and oriented sitting in chair extubated yesterday currently on 2 L NC denies any pain no fever no active bleeding no family at bed side Vitals/Results Intake & Output 04/20/17 04/20/17 04/21/17 15:00 23:00 07:00 Intake Total 755 ml 100 ml 100 ml Output Total 575 ml 1750 ml 550 ml Balance 180 ml -1650 ml -450 ml IV Total 298 ml 100 ml 100 ml Tube Feeding 457 ml 0 ml 0 ml Output Urine Total 575 ml 1750 ml 550 ml # Bowel Movements 4 0 0 Vital Signs Vital Signs Date Time Temp Pulse Resp B/P Pulse Ox O2 Delivery O2 Flow Rate FiO2 04/21/17 07:28 100 Nasal Cannula 2.00 04/21/17 06:45 98 Nasal Cannula 3.00 04/21/17 06:00 89 04/21/17 04:00 98.9 97 20 100/67 100 04/21/17 04:00 93 04/21/17 03:10 98 30 04/21/17 02:45 85 27 98 04/21/17 02:45 85 27 98 04/21/17 02:30 89 29 83/47 99 04/21/17 02:15 94 30 98 04/21/17 02:15 94 30 98 04/21/17 02:00 101 31 93/54 99 04/21/17 02:00 93 04/21/17 02:00 101 31 93/54 99 04/21/17 01:45 96 33 99 04/21/17 01:45 96 33 99 04/21/17 01:37 89 33 84/48 98 04/21/17 01:37 89 33 84/48 98 04/21/17 01:31 93 32 72/40 97 04/21/17 01:31 93 32 72/40 97 04/21/17 01:30 93 31 97 04/21/17 01:30 93 31 97 04/21/17 01:15 93 30 97 04/21/17 01:15 93 30 97 04/21/17 01:00 96 31 90/54 95 04/21/17 01:00 96 31 90/54 95 04/21/17 00:45 95 33 95 04/21/17 00:45 95 33 95 04/21/17 00:30 92 32 95/52 96 04/21/17 00:30 92 32 95/52 96 04/21/17 00:23 99 30 04/21/17 00:15 93 33 100 04/21/17 00:15 93 33 100 04/21/17 00:00 93 34 102/58 100 04/21/17 00:00 93 34 102/58 100 04/21/17 00:00 99.1 91 16 102/58 100 04/21/17 00:00 91 04/20/17 22:00 105 04/20/17 20:00 99.4 122 22 162/88 99 04/20/17 20:00 122 04/20/17 19:23 98 30 04/20/17 19:00 99 Bi-Pap 30 04/20/17 18:00 116 04/20/17 17:15 100 04/20/17 17:15 Bi-Pap 30 04/20/17 16:42 Nasal Cannula 2.00 04/20/17 16:42 100 Nasal Cannula 2.00 04/20/17 16:00 104 04/20/17 16:00 99.2 104 19 122/66 99 04/20/17 15:40 Bi-Pap 30 04/20/17 15:40 65 30 04/20/17 14:22 Nasal Cannula 2.00 04/20/17 14:20 100 Nasal Cannula 2.00 04/20/17 14:20 100 Nasal Cannula 2 04/20/17 14:00 110 CBC/BMP: 04/21/17 0454 04/21/17 0454 Lab Results Laboratory Tests Test 04/20/17 04/21/17 16:16 04:54 Stool C. difficile Toxin (PCR) NEGATIVE Stl C. difficile Toxin PRESUMPTIVE Epiderm 027 NEGATIVE White Blood Count 3.0 TH/MM3 Red Blood Count 2.67 MIL/MM3 Hemoglobin 7.7 GM/DL Hematocrit 23.2 % Mean Corpuscular Volume 87.1 FL Mean Corpuscular Hemoglobin 29.0 PG Mean Corpuscular Hemoglobin 33.3 % Concent Red Cell Distribution Width 18.9 % Platelet Count 33 TH/MM3 Mean Platelet Volume 9.2 FL Neutrophils (%) (Auto) 85.7 % Lymphocytes (%) (Auto) 10.2 % Monocytes (%) (Auto) 4.0 % Eosinophils (%) (Auto) 0.0 % Basophils (%) (Auto) 0.1 % Neutrophils # (Auto) 2.6 TH/MM3 Lymphocytes # (Auto) 0.3 TH/MM3 Monocytes # (Auto) 0.1 TH/MM3 Eosinophils # (Auto) 0.0 TH/MM3 Basophils # (Auto) 0.0 TH/MM3 CBC Comment DIFF FINAL Differential Comment Sodium Level 142 MEQ/L Potassium Level 4.4 MEQ/L Chloride Level 104 MEQ/L Carbon Dioxide Level 32.2 MEQ/L Anion Gap 6 MEQ/L Blood Urea Nitrogen 15 MG/DL Creatinine 0.30 MG/DL Estimat Glomerular Filtration 235 ML/MIN Rate Random Glucose 141 MG/DL Calcium Level 8.9 MG/DL Phosphorus Level 3.8 MG/DL Magnesium Level 2.2 MG/DL Total Bilirubin 0.5 MG/DL Aspartate Amino Transf 11 U/L (AST/SGOT) Alanine Aminotransferase 38 U/L (ALT/SGPT) Alkaline Phosphatase 50 U/L Total Protein 5.5 GM/DL Albumin 2.4 GM/DL Physical Exam General General Appearance: Well Developed, Well Nourished, No Acute Distress, Comfortable Eyes Eye Exam: Pupils Equal, Pupils Reactive Ears & Nose Ears & Nose Exam: Nasal Mucosa [place] Throat Throat Exam: Oral Mucosa [place] & Moist Neck Neck Exam: Neck Supple, Trachea Midline Pulmonary Resp Exam: No Distress, Decreased Bases Cardiology CV Exam: Good Perfusion, Tachycardia Gastrointestinal/Abdomen GI Exam: Soft, Non-Tender, Bowel Sounds Present, Distended Genitourinary Exam: Clear Urine Musculoskeletal MS Exam: Joints Intact Integumentary Skin Exam: Warm, Dry Extremeties Extremities Exam: Pedal Pulses Palpable, Trace Edema Assessment/Plan Problem List: (1) Hypercapnic respiratory failure (2) Acute exacerbation of chronic obstructive pulmonary disease (COPD) (3) SCLC (small cell lung carcinoma) Plan: with liver mets (4) Hyperglycemia (5) Depression (6) A-fib (7) Hypertension Assessment/Plan pulmonary/critical care on board s/p extubation Duonebs IV steroids empiric antibiotics cultures negative oncology following, input appreciated CT PE protocol reviewed reduction in size of mediastinal and hilar adenopathy. An reduction in size of left hepatic lobe metastasis. Severe emphysematous changes. no chemotherapy plans at this time, hospice recommended Leukopenia, monitor WBC Thrombocytopenia, HIT neg continue tube feeding Bowel regimen Anemia post hydration will monitor hx afib, continue Cardizem remains SR/ST SCD DVT prophylaxis Pepcid for GI prophylaxis Palliative care following, goals remains aggressive. Input appreciated CM for dc planning, Speech and PT eval Full code condition guarded Labs reviewed D/W RN Problem Qualifiers (1) Hypercapnic respiratory failure: Qualified Code: J96.02 - Acute respiratory failure with hypercapnia (2) SCLC (small cell lung carcinoma): Qualified Code: C34.90 - SCLC (small cell lung carcinoma), unspecified laterality (3) Depression: Qualified Code: F32.9 - Depression, unspecified depression type (4) A-fib: Qualified Code: I48.91 - Atrial fibrillation, unspecified type (5) Hypertension: Qualified Code: I10 - Essential hypertension Kaylyn Gregory MD April 21, 2017 13:38
--- NOTE | 2017-04-21 16:29 | HHI.PR ---
Subjective Remarks ASS EXTUBATED LETHARGIC , BUT EASILY AROUSABLE NO DISTRESS Objective Vital Signs Date Time Temp Pulse Resp B/P Pulse Ox O2 Delivery O2 Flow Rate FiO2 04/21/17 16:00 95 04/21/17 15:30 95 04/21/17 15:00 109 19 114/69 100 04/21/17 15:00 109 04/21/17 14:30 104 30 123/70 100 04/21/17 14:30 104 04/21/17 14:00 101 04/21/17 14:00 101 10 123/70 100 04/21/17 13:30 106 04/21/17 13:30 106 5 108/66 100 04/21/17 13:00 112 04/21/17 13:00 112 13 107/80 100 04/21/17 12:30 103 04/21/17 12:30 103 27 123/73 100 04/21/17 12:00 103 04/21/17 12:00 103 16 122/71 100 04/21/17 11:30 98 29 120/68 100 04/21/17 11:30 98 04/21/17 08:30 105 32 124/68 100 04/21/17 08:30 105 04/21/17 08:00 107 04/21/17 08:00 107 33 130/69 100 04/21/17 07:28 100 Nasal Cannula 2.00 04/21/17 07:00 94 Nasal Cannula 3.00 30 04/21/17 06:45 98 Nasal Cannula 3.00 04/21/17 06:00 89 04/21/17 04:00 98.9 97 20 100/67 100 04/21/17 04:00 93 04/21/17 03:10 98 30 04/21/17 02:45 85 27 98 04/21/17 02:45 85 27 98 04/21/17 02:30 89 29 83/47 99 04/21/17 02:15 94 30 98 04/21/17 02:15 94 30 98 04/21/17 02:00 101 31 93/54 99 04/21/17 02:00 93 04/21/17 02:00 101 31 93/54 99 04/21/17 01:45 96 33 99 04/21/17 01:45 96 33 99 04/21/17 01:37 89 33 84/48 98 04/21/17 01:37 89 33 84/48 98 04/21/17 01:31 93 32 72/40 97 04/21/17 01:31 93 32 72/40 97 04/21/17 01:30 93 31 97 04/21/17 01:30 93 31 97 04/21/17 01:15 93 30 97 04/21/17 01:15 93 30 97 04/21/17 01:00 96 31 90/54 95 04/21/17 01:00 96 31 90/54 95 04/21/17 00:45 95 33 95 04/21/17 00:45 95 33 95 04/21/17 00:30 92 32 95/52 96 04/21/17 00:30 92 32 95/52 96 04/21/17 00:23 99 30 04/21/17 00:15 93 33 100 04/21/17 00:15 93 33 100 04/21/17 00:00 93 34 102/58 100 04/21/17 00:00 93 34 102/58 100 04/21/17 00:00 99.1 91 16 102/58 100 04/21/17 00:00 91 04/20/17 22:00 105 04/20/17 20:00 99.4 122 22 162/88 99 04/20/17 20:00 122 04/20/17 19:23 98 30 04/20/17 19:00 99 Bi-Pap 30 04/20/17 18:00 116 04/20/17 17:15 100 04/20/17 17:15 Bi-Pap 30 04/20/17 16:42 Nasal Cannula 2.00 04/20/17 16:42 100 Nasal Cannula 2.00 I/O 04/20/17 04/20/17 04/20/17 04/21/17 04/21/17 04/21/17 07:00 15:00 23:00 07:00 15:00 23:00 Intake Total 1074 ml 755 ml 100 ml 100 ml 612 ml Output Total 850 ml 575 ml 1750 ml 550 ml 1600 ml Balance 224 ml 180 ml -1650 ml -450 ml -988 ml Intake Oral 450 ml IV Total 458 ml 298 ml 100 ml 100 ml 162 ml Tube Feeding 456 ml 457 ml 0 ml 0 ml Other 160 ml Output Urine Total 850 ml 575 ml 1750 ml 550 ml 1600 ml Tube Feeding Residual Discard 0 ml # Bowel Movements 1 4 0 0 Result Diagram: 04/21/1745304/21/17453 Objective Remarks GENERAL: SKIN: Warm and dry. HEAD: Atraumatic. Normocephalic. EYES: Pupils equal and round. No scleral icterus. No injection or drainage. ENT: No nasal bleeding or discharge. Mucous membranes pink and moist. NECK: Trachea midline. No JVD. CARDIOVASCULAR: Regular rate and rhythm. RESPIRATORY: No accessory muscle use. Clear to auscultation. Breath sounds equal bilaterally. GASTROINTESTINAL: Abdomen soft, non-tender, nondistended. Hepatic and splenic margins not palpable. MUSCULOSKELETAL: Extremities without clubbing, cyanosis, or edema. No obvious deformities. NEUROLOGICAL: Awake and alert. No obvious cranial nerve deficits. Motor grossly within normal limits. Five out of 5 muscle strength in the arms and legs. Normal speech. PSYCHIATRIC: Appropriate mood and affect; insight and judgment normal. Assessment and Plan Assessment and Plan ass: EXTUBATED respiratory failure copd lung CA PLAN O2 NEEDED BRONCHODILATOR THERAPY INCREASE ACTIVITY Audra Zhu MD April 21, 2017 16:28
[2017-04-21] MEDS: MELATONIN 5 MG TAB PO SCH (22:05)
[2017-04-21] MEDS: ATORVASTATIN 20 MG TAB PO SCH (22:05)
[2017-04-21] MEDS: LORazepam 2 MG/ML VIAL IV PUSH PRN (23:16)
[2017-04-22] VITALS (27 sets, daily range): BP systolic 98–134; BP diastolic 54–77; PULSE 82–122; RESP 3–56; TEMP 97.9; O2SAT 68–100
[2017-04-22] MEDS: RESP: ALBUTEROL 2.5 MG/IPRATROPIUM 0.5 MG NEB (SCH) NEB ×6 (03:21→22:18)
[2017-04-22] MEDS: INSULIN NovoLIN REGULAR SUPPLEMENTAL SCALE SQ SCH ×4 (04:59→22:44)
[2017-04-22] MEDS: methylPREDNISolone SOD SUCC 125 MG/2 ML VIAL IVP SCH (04:59)
[2017-04-22] MEDS: PIPERACIL-TAZO 4.5 GM PREMIX 100 ML IV SCH (04:59)
[2017-04-22] MEDS: METOCLOPRAMIDE HCL 10 MG/2 ML VIAL IV PUSH SCH ×3 (04:59→22:42)
[2017-04-22 06:57] LABS: AUTOMATED NEUTROPHIL # 2.1 TH/MM3 (1.8-7.7); BASOPHIL % 0.1 % (0.0-2.0); HEMATOCRIT 24.4 % (35.0-46.0); LYMPH % 11.9 % (9.0-44.0); LYMPHOCYTE # 0.3 TH/MM3 (1.0-4.8); MEAN CELL VOLUME 86.8 FL (80.0-100.0); MEAN CORPUSCULAR HEMOGLOBIN 28.6 PG (27.0-34.0); MEAN CORPUSCULAR HGB CONC 32.9 % (32.0-36.0); PLATELET COUNT 55 TH/MM3 (150-450); RED BLOOD COUNT 2.81 MIL/MM3 (4.00-5.30); RED CELL DISTRIBUTION WIDTH 18.8 % (11.6-17.2); WHITE BLOOD COUNT 2.6 TH/MM3 (4.0-11.0)
[2017-04-22 07:13] LABS: POTASSIUM 3.9 MEQ/L (3.5-5.1)
[2017-04-22 07:17] LABS: HEMO FLAGS AUTO DIFF
[2017-04-22] MEDS: RESP: BUDESONIDE 0.5 MG/2 ML NEB NEB SCH ×2 (07:54→19:37)
[2017-04-22 07:56] LABS: OVALOCYTES 1+ (NORMAL); PLATELET ESTIMATE SMEAR LOW (NORMAL); PLATELET MORPHOLOGY NORMAL (NORMAL); SCAN/DIFF AUTO DIFF CONFIRMED
[2017-04-22] MEDS: CHLORHEXIDINE 0.12% (ORAL KIT) 15 ML CUP MT SCH ×2 (08:00→19:55)
--- NOTE | 2017-04-22 08:09 | HHI.CCPN ---
Subjective Remarks/Hospital Course 51-year-old female with past medical history of small cell lung cancer with liver metastases diagnosed in January 2017, tobacco abuse. She has been on palliative chemotherapy since March 08. She presented to [facility] emergency department on 04/07/17 with shortness of breath and has been treated for COPD exacerbation with nebs, Solu-Medrol, cefepime and azithromycin. She was placed on BiPAP and initially had some response. However she refused BiPAP and has becoming progressively lethargic through the course of the evening. An ABG was obtained and she has acute hypercapnic respiratory failure with pH 7.12/PaCO2 116/PA O2 of 101. Her RN discussed code status with her earlier and patient stated "intubate me if I need it". Further history is limited due to patient's altered mental status secondary to hypercapnic respiratory failure. CTA 04/07 was negative for pulmonary embolism. 04/08: CPAP trials attempted patient extremely anxious, unsuccessful. Plan to to transition to Precedex infusion for CPAP trials and weaning. ABG this a.m. 7.34/63/205/34/7.9, but patient gets extremely anxious when CPAP trials were initiated. 04/09 Patient is sedated with Diprivan and intubated. Afebrile. 04/10:Afebrile. Notably anxious this afternoon. Patient placed on Precedex infusion CPAP trials initiated. 04/11: Continue attempts at CPAP trials, one Precedex unsuccessful. Patient becomes extremely anxious despite Xanax. Patient now continues on propofol sedation for mechanical ventilation synchrony. 04/12: Medications readjusted today the patient continues on CPAP trials greater than 6 hours. Sodium level was noted to continue to be elevated free water flushes added to medication regimen. Off sedation the patient continues to be a GCS of 11 T. 04/13: Lasted only 10 minutes on PSV trial today. Continues to be on propofol and fentanyl drips for vent synchrony. Tolerating tube feeding. Positive BM. 04/14: Resting in bed. Currently not tolerating PSV trials. Arousable. Moves all 4 extremities spontaneously. No bowel movement. 04/15: Seen with Dr. Zhu. No acute distress. Awake and alert and following commands. Currently afebrile. 04/16: Attempt x-rays yesterday. Lasted 2 hours before reintubation. Intractable nausea and vomiting. CT abdomen pelvis 04/15 revealed ductal dilatation is contracted gallbladder with stone. LFTs slightly elevated. Recheck in this AM. Arousable and follows commands on the ventilator. Positive BM overnight. 04/17: Attempt extubation. Lasted 15 minutes before reintubation due to distress. Saturations okay but "cannot catch breath". FiO2 30% and had excellent RSBI of around 30 and nif of -47. Vocal cords looked normal. Subjective: 04/18: Currently resting in bed with FiO2 30%. Afebrile. Tolerating tube feeds. No changes past 24 hours. Platelets are trending downward. Lovenox held and heparin antibody sent 04/19 Patient remains sedated with Diprivan and intubated. Afebrile. Tolerating tube feeds. 04/20 No events overnight. Afebrile. Sedated and intubated. 04/21 Patient s/p extubation yesterday on 2L oxygen with good sats. Afebrile. Awake and alert. 04/22 Patient is on 2L oxygen. Afebrile. Objective Vital Signs Date Time Temp Pulse Resp B/P Pulse Ox O2 Delivery O2 Flow Rate FiO2 04/22/17 07:57 100 Nasal Cannula 3.00 04/22/17 06:00 89 04/22/17 05:00 28 112/64 04/22/17 04:06 30 04/22/17 04:00 97.9 Intake and Output 04/21/17 04/21/17 04/22/17 08:00 16:00 00:00 Intake Total 100 ml 612 ml 350 ml Output Total 550 ml 1600 ml 930 ml Balance -450 ml -988 ml -580 ml Result Diagram: 04/22/17 0546 04/22/17 0546 Other Results Laboratory Tests Test 04/22/17 05:46 White Blood Count 2.6 TH/MM3 Red Blood Count 2.81 MIL/MM3 Hemoglobin 8.0 GM/DL Hematocrit 24.4 % Mean Corpuscular Volume 86.8 FL Mean Corpuscular Hemoglobin 28.6 PG Mean Corpuscular Hemoglobin 32.9 % Concent Red Cell Distribution Width 18.8 % Platelet Count 55 TH/MM3 Mean Platelet Volume 9.7 FL Neutrophils (%) (Auto) 84.0 % Lymphocytes (%) (Auto) 11.9 % Monocytes (%) (Auto) 4.0 % Eosinophils (%) (Auto) 0.0 % Basophils (%) (Auto) 0.1 % Neutrophils # (Auto) 2.1 TH/MM3 Lymphocytes # (Auto) 0.3 TH/MM3 Monocytes # (Auto) 0.1 TH/MM3 Eosinophils # (Auto) 0.0 TH/MM3 Basophils # (Auto) 0.0 TH/MM3 CBC Comment AUTO DIFF Differential Comment AUTO DIFF CONFIRMED Platelet Estimate LOW Platelet Morphology Comment NORMAL Ovalocytes 1+ Sodium Level 140 MEQ/L Potassium Level 3.9 MEQ/L Chloride Level 99 MEQ/L Carbon Dioxide Level 34.0 MEQ/L Anion Gap 7 MEQ/L Blood Urea Nitrogen 15 MG/DL Creatinine 0.46 MG/DL Estimat Glomerular Filtration 143 ML/MIN Rate Random Glucose 161 MG/DL Calcium Level 8.9 MG/DL Imaging Last Impressions Chest X-Ray 04/19/17 0600 Signed Impressions: Service Date/Time: Wednesday, April 19, 2017 03:51 - CONCLUSION: No acute cardiopulmonary disease. Therese Javier MD Cholangiopancreatography MRI 04/16/17 0000 Signed Impressions: Service Date/Time: Sunday, April 16, 2017 09:35 - CONCLUSION: 1. Unremarkable examination of the biliary tree. No evidence of ductal dilatation. 2. Cholelithiasis 3. Indeterminate lesions in liver as described above. Malignancy is not excluded. Administration of contrast would be helpful to further delineate these abnormalities Son Bryson MD Abdomen/Pelvis CT 04/15/17 0000 Signed Impressions: Service Date/Time: March 17:45 - CONCLUSION: 1. Biliary dilatation as described above. 2. Mass is again identified laterally in the right lobe. Central mass seen previously is poorly demonstrated on today's exam because of phase of the contrast. 3. Gallstones around a contracted gallbladder. Fred Vieyra MD FACR Abdomen X-Ray 04/15/17 0000 Signed Impressions: Service Date/Time: March 13:34 - CONCLUSION: Normal examination. Tomasz New MD CT Angiography 04/07/17 0031 Signed Impressions: Service Date/Time: Friday, April 07, 2017 01:13 - CONCLUSION: 1. No pulmonary emboli. 2. Reduction in size of the mediastinal and hilar adenopathy. 3. Reduction in size of the left hepatic lobe metastasis. 4. Severe emphysematous changes. Roberth Lockett Jr., MD Objective Remarks GENERAL: Patient is 51 yo lying in bed in NAD SKIN: Warm and dry. HEAD: Normocephalic. EYES: No scleral icterus. No injection or drainage. NECK: Supple, trachea midline. No JVD or lymphadenopathy. CARDIOVASCULAR: Regular rate and rhythm without murmurs, gallops, or rubs. RESPIRATORY: Breath sounds equal bilaterally. No accessory muscle use. GASTROINTESTINAL: Abdomen soft, non-tender, nondistended. MUSCULOSKELETAL: No cyanosis, or edema. Neuro: Awake and alert Date of Insertion: April 07, 2017 A/P Assessment and Plan NEURO/PSYCH: Anxiety disorder NOS Monitor neuro status and avoid sedatives Psych eval for anxiety/depression RESP: Acute hypercapnic respiratory failure COPD exacerbation Severe emphysematous COPD Continue with oxygen keep sat >92% Bronchodilators ( Duoneb, Pulmicort, Symbicort, Spiriva) Decrease Solu-Medrol 40 mg IVQ12 Pulmonology following, Dr. Zhu CTA 04/07 significant/severe pulmonary emphysema, decreasing mediastinal lymphadenopathy. Decrease in size of hepatic mass CXR 04/19- No acute disease NIPPV PRN during day and nocturnally qhs. CV: Hypertension Dyslipidemia History of atrial fibrillation Monitor HR and BP keep MAP>65mmHg Continue Cardizem 30 mg QID, Lipitor 20mg QD 2-D echo 02/12 revealed EF 55-60%. No regional wall motion abnormality. GI: Mild protein calorie malnutrition On PO diet CT abdomen/pelvis 04/15 Revealed contracted gallbladder. Ductal dilatation biliary system/pancreas noted MRCP essentially normal. GI is following Prevacid for GI prophylaxis Colace/Senokot twice a day for bowel regimen /Renal: Monitor renal function, I/O's, electrolytes replacement per protocol. ID: Completed cefepime and azithromycin course. Monitor for signs of infections (Fever, WBC) blood and urine culture- NGTD sputum 04/18- S. Maltophilia, d/c Zosyn and place on Bactrim. ID eval HEME/ONC: Small cell lung cancer with liver metastases on palliative chemotherapy Leukopenia Normocytic anemia Thrombocytopenia Monitor CBC Hematology following, Dr. Juan Stein as outpatient per chemo. Lovenox on hold. Hit panel negative ENDO: Acute hyperglycemia of critical illness On SSI medium scale for glycemic control. Access - Right Port-A-Cath Prophylaxis - GI -Prevacid - DVT - SCD/Lovenox sq on hold for thrombocytopenia. PT eval and treat Palliative care is following. Will sign off Level 3 . Kareem Schmitz MD April 22, 2017 08:09
[2017-04-22] MEDS: FREE WATER G-TUBE SCH ×2 (08:17→19:55)
[2017-04-22] MEDS: LANSOPRAZOLE SOLUTAB 30 MG TAB NG SCH (08:47)
[2017-04-22] MEDS: SULFAMETHOXAZOLE-TRIMETHOPRIM 400-80 MG TAB PO SCH ×2 (08:47→19:56)
[2017-04-22] MEDS: DILTIAZEM HCL 30 MG TAB PO SCH ×4 (08:47→19:56)
[2017-04-22] MEDS: TIOTROPIUM BROMIDE 18 MCG INH INH SCH (08:47)
[2017-04-22] MEDS: BUDESONIDE-FORMOTEROL 160/4.5 MCG INHALER INH SCH ×2 (08:47→19:55)
[2017-04-22] MEDS: SODIUM CHLORIDE 0.9% FLUSH 10 ML FLUSH IV FLUSH SCH ×2 (08:48→19:55)
--- NOTE | 2017-04-22 11:02 | PD.ONC.PN ---
Subjective Subjective Remarks Afebrile overnight. Pt has just been assisted to chair with PT Asking to go home Admits to feeling weak Objective Data Date Time Temp Pulse Resp B/P Pulse Ox O2 Delivery O2 Flow Rate FiO2 04/22/17 09:00 114 35 118/64 100 04/22/17 08:00 83 04/22/17 08:00 95 36 133/77 100 04/22/17 07:57 100 Nasal Cannula 3.00 04/22/17 07:00 100 Nasal Cannula 3.00 30 04/22/17 06:00 89 04/22/17 05:00 90 04/22/17 05:00 90 28 112/64 100 04/22/17 04:06 96 30 04/22/17 04:00 97.9 86 26 108/59 98 04/22/17 04:00 86 04/22/17 03:00 82 29 104/59 98 04/22/17 02:00 86 04/22/17 02:00 86 29 102/60 96 04/22/17 01:25 98 30 04/22/17 01:00 89 27 102/56 96 04/22/17 00:00 97.9 96 30 101/64 96 04/22/17 00:00 96 04/21/17 23:05 99 30 04/21/17 23:00 92 26 128/64 99 04/21/17 22:00 101 04/21/17 22:00 101 30 128/75 99 04/21/17 21:00 111 30 123/72 99 04/21/17 20:30 106 30 121/71 74 04/21/17 20:00 108 04/21/17 20:00 98.8 108 33 120/67 100 04/21/17 19:28 100 Nasal Cannula 2.00 04/21/17 19:00 100 Nasal Cannula 3.00 33 04/21/17 18:01 110 04/21/17 18:00 109 04/21/17 17:30 99 04/21/17 17:30 99 33 129/71 100 04/21/17 17:00 98 19 123/76 100 04/21/17 17:00 98 04/21/17 16:30 96 26 129/88 100 04/21/17 16:30 96 04/21/17 16:00 95 32 117/69 99 04/21/17 16:00 95 04/21/17 16:00 95 04/21/17 15:30 95 04/21/17 15:30 95 12 106/67 100 04/21/17 15:30 95 04/21/17 15:00 109 19 114/69 100 04/21/17 15:00 109 19 114/69 100 04/21/17 15:00 109 04/21/17 15:00 109 04/21/17 14:30 104 04/21/17 14:30 104 30 123/70 100 04/21/17 14:30 104 30 123/70 100 04/21/17 14:30 104 04/21/17 14:00 101 04/21/17 14:00 101 10 123/70 100 04/21/17 14:00 101 04/21/17 14:00 101 10 123/70 100 04/21/17 13:30 106 5 108/66 100 04/21/17 13:30 106 04/21/17 13:30 106 04/21/17 13:30 106 5 108/66 100 04/21/17 13:00 112 13 107/80 100 04/21/17 13:00 112 04/21/17 13:00 112 13 107/80 100 04/21/17 13:00 112 04/21/17 12:30 103 04/21/17 12:30 103 04/21/17 12:30 103 27 123/73 100 04/21/17 12:30 103 27 123/73 100 04/21/17 12:00 103 16 122/71 100 04/21/17 12:00 103 04/21/17 12:00 103 16 122/71 100 04/21/17 12:00 103 04/21/17 11:30 98 29 120/68 100 04/21/17 11:30 98 29 120/68 100 04/21/17 11:30 98 04/21/17 11:30 98 04/22/17 04/22/17 04/22/17 07:00 15:00 23:00 Intake Total 102 ml Output Total 450 ml Balance -348 ml Result Diagram: 04/22/17 0546 04/22/17 0546 Laboratory Results Laboratory Tests Test 04/22/17 05:46 White Blood Count 2.6 TH/MM3 Red Blood Count 2.81 MIL/MM3 Hemoglobin 8.0 GM/DL Hematocrit 24.4 % Mean Corpuscular Volume 86.8 FL Mean Corpuscular Hemoglobin 28.6 PG Mean Corpuscular Hemoglobin 32.9 % Concent Red Cell Distribution Width 18.8 % Platelet Count 55 TH/MM3 Mean Platelet Volume 9.7 FL Neutrophils (%) (Auto) 84.0 % Lymphocytes (%) (Auto) 11.9 % Monocytes (%) (Auto) 4.0 % Eosinophils (%) (Auto) 0.0 % Basophils (%) (Auto) 0.1 % Neutrophils # (Auto) 2.1 TH/MM3 Lymphocytes # (Auto) 0.3 TH/MM3 Monocytes # (Auto) 0.1 TH/MM3 Eosinophils # (Auto) 0.0 TH/MM3 Basophils # (Auto) 0.0 TH/MM3 CBC Comment AUTO DIFF Differential Comment AUTO DIFF CONFIRMED Platelet Estimate LOW Platelet Morphology Comment NORMAL Ovalocytes 1+ Sodium Level 140 MEQ/L Potassium Level 3.9 MEQ/L Chloride Level 99 MEQ/L Carbon Dioxide Level 34.0 MEQ/L Anion Gap 7 MEQ/L Blood Urea Nitrogen 15 MG/DL Creatinine 0.46 MG/DL Estimat Glomerular Filtration 143 ML/MIN Rate Random Glucose 161 MG/DL Calcium Level 8.9 MG/DL Culture Results Microbiology Date/Time Procedure Status Source Growth 04/19/17 16:16 Stool Occult Blood (RAJEEV) - Final Complete Stool Stool HEMOCCULT POSITIVE Administered Medications Medications (Trade) Dose Ordered Sig/Rossana Route PRN Reason Start Time Stop Time Status Last Admin Dose Admin Sodium Chloride (NS Flush) 2 ml BID IV FLUSH 04/07/17 09:00 04/22/17 08:48 Sodium Chloride (NS Flush) 2 ml UNSCH PRN IV FLUSH FLUSH AFTER USING IV ACCESS 04/07/17 01:00 04/15/17 13:12 Enoxaparin Sodium (Lovenox Inj) 40 mg Q24H SQ 04/07/17 01:00 Hold 04/17/17 23:38 Ondansetron HCl (Zofran Inj) 4 mg Q6H PRN IV NAUSEA 04/07/17 01:00 04/20/17 17:21 Calcium Carbonate (Tums Chew) 1,000 mg TID PRN CHEW DYSPEPSIA 04/07/17 01:00 04/19/17 13:17 Famotidine (Pepcid) 20 mg BID PO 04/07/17 09:00 Hold 04/18/17 09:14 Miscellaneous Information Patient in critical care unit? Ass... [id number] .XX 04/07/17 02:30 04/07/17 02:30 Potassium Bicarb/ Potassium Chloride (K-Lyte Cl Eff) 50 meq UNSCH PRN PO For Potassium 3.3 - 3.5 mEq/L 04/08/17 10:45 04/20/17 13:34 Potassium Phosphate (K-Phos) 2,000 mg Q4H PRN PO For Phosphorus < 2.5 mg/dL 04/08/17 10:45 04/20/17 13:34 Glycerin (Glycerin Adult Supp) 2 gm BID PRN RECTAL CONSTIPATION 04/14/17 21:00 04/16/17 00:29 Nitroglycerin (Nitroglycerin 2% Oint) 2 inch Q6H PRN TOPICAL SBP>160, DBP>90 04/15/17 13:00 04/15/17 13:50 Hydralazine HCl (Apresoline Inj) 10 mg Q1H PRN IV PUSH SBP>160, DBP>90 04/15/17 13:00 04/15/17 13:12 Labetalol HCl (Trandate Inj) 10 mg Q1H PRN IV PUSH SBP>160, DBP>90, HR>65 04/15/17 13:00 04/15/17 13:49 Morphine Sulfate (Morphine Inj) 2 mg Q3H PRN IV PUSH PAIN SCALE 6 TO 10 04/15/17 13:00 04/15/17 13:01 Prochlorperazine Edisylate (Compazine Inj) 5 mg Q6H PRN IV PUSH nausea 04/15/17 13:00 04/15/17 13:11 Metoclopramide HCl (Reglan Inj) 5 mg Q8HR IV PUSH 04/15/17 14:00 04/22/17 04:59 Chlorhexidine Gluconate (Peridex 0.12% Liq) 15 ml BID@08,20 MT 04/15/17 20:00 04/20/17 09:50 Lansoprazole (Prevacid Odt) 30 mg DAILY NG 04/19/17 09:00 04/22/17 08:47 Diltiazem HCl (Cardizem) 30 mg QID PO 04/19/17 18:00 04/22/17 08:47 Insulin Human Regular (NovoLIN R SUPPLEMENTAL SCALE) 1 Q6HR SQ 04/20/17 12:00 04/22/17 04:59 Water (Free Water) 250 ml Q12HR G-TUBE 04/20/17 12:15 04/20/17 12:15 Tiotropium [place] (Spiriva Inh) 18 mcg DAILY INH 04/20/17 14:00 04/22/17 08:47 Budesonide/ Formoterol Fumarate (Symbicort 160-4.5 Inh) 2 puff Q12HR INH 04/20/17 14:00 04/22/17 08:47 Melatonin (Melatonin) 5 mg HS PO 04/20/17 21:00 04/21/17 22:05 Lorazepam (Ativan Inj) 0.5 mg Q8H PRN IV PUSH BIPAP TOLERANCE/ANXIETY 04/20/17 20:45 04/21/17 23:16 Atorvastatin Calcium (Lipitor) 20 mg HS PO 04/21/17 21:00 04/21/17 22:05 Trimethoprim/ Sulfamethoxazole (Bactrim 400-80 Mg) 1 tab Q12HR PO 04/22/17 09:00 04/28/17 08:59 04/22/17 08:47 Objective Remarks GENERAL: Older female, sitting up in chair at bedside with moderate work of breathing noted. SKIN: Warm and dry. HEAD: Normocephalic. +Alopecia. EYES: No injection or drainage. NECK: Supple, trachea midline. CARDIOVASCULAR: +S1/S2, tachycardic. RESPIRATORY: Posterior mathis clear, diminished at the bases. On 2L NC. GASTROINTESTINAL: Abdomen soft nondistended. EXTREMITIES: No cyanosis. No edema. NEUROLOGICAL: Pt awake, alert. Moving all extremities. Normal speech. Assessment/Plan Problem List: (1) SCLC (small cell lung carcinoma) Status: Chronic Plan: 04/22: Continue working with PT. Platelets increasing. Will restart prophylactic Lovenox tomorrow if continued rise. 04/21: Pt extubated. On 2L NC. Will continue to monitor. Continue Abx. Pt will need extensive physical conditioning before she will be a candidate for more chemotherapy. 04/20: family meeting held along with palliative care [employer]'s and patient's healthcare surrogate Yessenia and patient's children as well as patient. discussed patient's treatment up to this point and poor prognosis. discussed the terminal nature of her condition. patient wishes to remain full code and wants to proceed with trach. aggressive care to continue. family members questions answered. 04/19: remains intubated. prognosis poor. will call and speak with Yessenia, sister and set up a time to meet with palliative care. UPDATE: I spoke with Yessenia, the patient's sister and healthcare surrogate. will meet with her tomorrow at 10AM. Patient's daughter and other family members will be present. 04/16 was extubated yesterday. now reintubated after just 2 hrs. Had emesis. ? aspirated. Had Large BM per RN. Poor prognosis. Recommend hospice. 04/15: patient now extubated but having vomiting. will wait for PS to improve before resuming chemotherapy 04/14: Pt having low tidal volumes. No CPAP trials today. Palliative care consulted. She will not be a candidate for future chemo unless acute issues/ performance status significantly improves. 04/13: Pt did not tolerate CPAP trials today. Per RN last only 10 minutes. No chemo today. Continue IV Abx, steroids. 04/12: On Cefepime + solu-medrol. CPAP trials today. unable to resume chemo until current issues resolved 04/08/17: Continue supportive care with IV Abx, steroids. -- s/p C2 w/ carboplatin and etoposide on 04/05/17. Assessment 51 y/o female with history of small cell lung cancer admitted with COPD exacerbation. Attending Statement pt extubated. C/O SOB and severe weakness. PT may transfer to floor. D/W RN Thrombocytopenia is due to chemo. Plat are coming up. chemo as outpt when she is stronger again. Problem Qualifiers (1) SCLC (small cell lung carcinoma): Qualified Code: C34.90 - SCLC (small cell lung carcinoma), unspecified laterality Daisy Marquez April 22, 2017 11:02 Alyssa Martinez MD April 22, 2017 23:17
--- NOTE | 2017-04-22 11:20 | HHI.PR ---
Subjective Subjective Notes Up to chair Talking with Roverto Álvaro Stable on 2L NC Objective Vitals/I&O Vital Signs Date Time Temp Pulse Resp B/P Pulse Ox O2 Delivery O2 Flow Rate FiO2 04/22/17 11:00 98 04/22/17 09:00 35 118/64 100 04/22/17 07:57 Nasal Cannula 3.00 04/22/17 07:00 30 04/22/17 04:00 97.9 Labs Laboratory Tests Test 04/22/17 05:46 White Blood Count 2.6 Red Blood Count 2.81 Hemoglobin 8.0 Hematocrit 24.4 Mean Corpuscular Volume 86.8 Mean Corpuscular Hemoglobin 28.6 Mean Corpuscular Hemoglobin 32.9 Concent Red Cell Distribution Width 18.8 Platelet Count 55 Mean Platelet Volume 9.7 Neutrophils (%) (Auto) 84.0 Lymphocytes (%) (Auto) 11.9 Monocytes (%) (Auto) 4.0 Eosinophils (%) (Auto) 0.0 Basophils (%) (Auto) 0.1 Neutrophils # (Auto) 2.1 Lymphocytes # (Auto) 0.3 Monocytes # (Auto) 0.1 Eosinophils # (Auto) 0.0 Basophils # (Auto) 0.0 CBC Comment AUTO DIFF Differential Comment AUTO DIFF CONFIRMED Platelet Estimate LOW Platelet Morphology Comment NORMAL Ovalocytes 1+ Sodium Level 140 Potassium Level 3.9 Chloride Level 99 Carbon Dioxide Level 34.0 Anion Gap 7 Blood Urea Nitrogen 15 Creatinine 0.46 Estimat Glomerular Filtration 143 Rate Random Glucose 161 Calcium Level 8.9 Date/Time Procedure Status Source Growth 04/19/17 16:16 Stool Occult Blood (RAJEEV) - Final Complete Stool Stool HEMOCCULT POSITIVE 04/18/17 16:27 Gram Stain - Final Complete Sputum Expectorated Sputum 04/18/17 16:27 Sputum Culture - Final Complete Stenotrophomonas Maltophilia 04/18/17 11:05 Aerobic Blood Culture - Preliminary Resulted Blood Peripheral NO GROWTH IN 4 DAYS 04/18/17 11:05 Anaerobic Blood Culture - Preliminary Resulted Blood Peripheral NO GROWTH IN 4 DAYS Cardiovascular: Regular Lungs: Clear Abdomen: Non-distended, Non-tender Extremities: No edema A/P Assessment and Plan 51 year old female with lung cancer; was on prolonged mechanical ventilation but now extubated -Stable on 2L NC -No need for trach placement -GS will sign off; please call if there becomes a need for trach placement and we would be happy to assist Attending Note - Dr. Diaz Extubated and breathing easily Will see as needed. The exam, history, and the medical decision-making described in the above note were completed with the assistance of the mid-level provider. I reviewed and agree with the findings presented. I attest that I had a [id number] encounter with the patient on the same day, and personally performed and documented my assessment and findings in the medical record. Marlene Jarquin April 22, 2017 11:20 Paul Diaz MD May 08, 2017 14:35
--- NOTE | 2017-04-22 12:53 | HHI.HCPN ---
Reason for visit a. To assist with evaluation and management of symptoms including: shortness of breath, anxiety, pain b. To assist medical decision maker(s) with: better understanding of current medical conditions; weighing benefits/burdens of medical treatment options; making medical treatment decisions. . (Freda Nathan) Subjective/Interval History . Ms. Hook is a 51 year old female with stage IV small cell lung cancer who presented to [facility] ED via EMS on 04/06/2017 and was subsequently admitted with acute COPD exacerbation. She has a past medical history is significant for COPD (on supplemental oxygen and nebulizers at home), anxiety disorder, atrial fibrillation and hypertension. Ms. Hook was diagnosed with SCLC with extensive liver metastasis in 01/2017 and began palliative chemotherapy in 02/2017. Follow-up for symptom management, clarification of medical treatment goals. Patient is awake and alert, sitting in bed side chair. Patient was successfully extubated on 04/20/2017. Currently tolerating 3L oxygen via nasal cannula with oxygen saturation at 100%. Patient communicating verbally, whispering which the patient is associating with recent intubation. She denies shortness of breath on exam, although she appears to be experiencing some dyspnea. Afebrile overnight. Patient completed cefepime course on 04/18/17. Sputum culture on 04/18/17 - S.Maltophilia; Zosyn was discontinued and the patient was started on Bactrim. Follow-up chest x-ray on 04/17/17 showing no acute cardiopulmonary disease. 04/22/2017 lab work: =WBC: 2.6, hemoglobin 8.0, hematocrit 24.4, platelets 55 (trending upward platelets of 33 yesterday), neutrophils 84.0% =Sodium: 140, potassium 3.9, chloride 99, carbon dioxide 34.0, glucose 161, calcium 8.9 =BUN: 15, creatinine 0.46, GFR 143 Patient denies pain or anxiety when asked, though she admits to chronic anxiety which she feels is exacerbated by her current circumstances. Current orders for lorazepam 0.5mg IV q8 hours PRN for anxiety; patient has received 1 dose in the past 24 hours. PRN Toutle and IV Morphine are available for pain but has not been administered in the past week. She complains of feeling very depressed and is appropriately tearful when discussing her family. Psychiatry consult pending. Physical, occupational and speech therapy are following. Patient was started on a mechanically soft diet with thin liquids yesterday 04/22/17; appetite remains poor with 25%-50% intake. Total protein 5.5, albumin 2.4. Patient admits to feeling weak, patient was able to transfer from bed to chair this morning with moderate assist 2. Per oncology, patient will need extensive physical conditioning before she will be a candidate for further chemotherapy. Recommendations for SNF placement upon discharge, however patient is adamant that she is going to return to her home. Threatening to leave AMA per nursing. . Family/friend interactions . Spoke with patient at bedside. In reference to previous conversations, patient confirms designation of her sister (Yessenia) as the healthcare surrogate decision maker. Discussed completion of a living will and the patient's five wishes. Patient was open to discussing further. Palliative Care DEPUTY CONTROLLER, Savannah oLckett, to follow up later today. . (Freda Nathan) Advance Directives Health Care Surrogate: Copy in medical record (Freda Nathan) Advance Directive Specifics Date completed: 04/16/2017 . Health Care Surrogate(s): Patient's sister, Yessenia Prasad, is designated as the health care surrogate decision maker. . Documented care wishes: No documented care wishes are available. . (Frdea Nathan) Objective Vital Signs Date Time Temp Pulse Resp B/P Pulse Ox O2 Delivery O2 Flow Rate FiO2 04/22/17 11:00 98 04/22/17 10:00 104 04/22/17 09:00 114 04/22/17 09:00 114 35 118/64 100 04/22/17 08:00 83 04/22/17 08:00 95 36 133/77 100 04/22/17 08:00 95 04/22/17 07:57 100 Nasal Cannula 3.00 04/22/17 07:00 100 Nasal Cannula 3.00 30 04/22/17 06:00 89 04/22/17 05:00 90 04/22/17 05:00 90 28 112/64 100 04/22/17 04:06 96 30 04/22/17 04:00 97.9 86 26 108/59 98 04/22/17 04:00 86 04/22/17 03:00 82 29 104/59 98 04/22/17 02:00 86 04/22/17 02:00 86 29 102/60 96 04/22/17 01:25 98 30 04/22/17 01:00 89 27 102/56 96 04/22/17 00:00 97.9 96 30 101/64 96 04/22/17 00:00 96 04/21/17 23:05 99 30 04/21/17 23:00 92 26 128/64 99 04/21/17 22:00 101 04/21/17 22:00 101 30 128/75 99 04/21/17 21:00 111 30 123/72 99 04/21/17 20:30 106 30 121/71 74 04/21/17 20:00 108 04/21/17 20:00 98.8 108 33 120/67 100 04/21/17 19:28 100 Nasal Cannula 2.00 04/21/17 19:00 100 Nasal Cannula 3.00 33 04/21/17 18:01 110 04/21/17 18:00 109 04/21/17 17:30 99 04/21/17 17:30 99 33 129/71 100 04/21/17 17:00 98 19 123/76 100 04/21/17 17:00 98 04/21/17 16:30 96 26 129/88 100 04/21/17 16:30 96 04/21/17 16:00 95 32 117/69 99 04/21/17 16:00 95 04/21/17 16:00 95 04/21/17 15:30 95 04/21/17 15:30 95 12 106/67 100 04/21/17 15:30 95 04/21/17 15:00 109 19 114/69 100 04/21/17 15:00 109 19 114/69 100 04/21/17 15:00 109 04/21/17 15:00 109 04/21/17 14:30 104 04/21/17 14:30 104 30 123/70 100 04/21/17 14:30 104 30 123/70 100 04/21/17 14:30 104 04/21/17 14:00 101 04/21/17 14:00 101 10 123/70 100 04/21/17 14:00 101 04/21/17 14:00 101 10 123/70 100 5/24/17 13:30 106 5 108/66 100 04/21/17 13:30 106 04/21/17 13:30 106 04/21/17 13:30 106 5 108/66 100 04/21/17 13:00 112 13 107/80 100 04/21/17 13:00 112 04/21/17 13:00 112 13 107/80 100 04/21/17 13:00 112 04/21/17 12:30 103 04/21/17 12:30 103 04/21/17 12:30 103 27 123/73 100 04/21/17 12:30 103 27 123/73 100 Intake & Output 04/22/17 04/22/17 07:00 19:00 Intake Total 452 ml Output Total 1380 ml Balance -928 ml Intake Oral 240 ml IV Total 212 ml Output Urine Total 1380 ml # Bowel Movements 0 . Physical Exam CONSTITUTIONAL/GENERAL: This is a frail middle aged woman who appears ill, in no acute distress at this time. TUBES/LINES/DRAINS: [id number] accessed, nasal cannula, , PIV 2 SKIN: No jaundice, rashes, or lesions. Ecchymoses on upper extremities. No wounds seen anteriorly. Skin temperature appropriate. Not diaphoretic. HEAD: Atraumatic. Normocephalic. EYES: Pupils equal and round and reactive. No scleral icterus. No injection or drainage. Fundi not examined. ENT: Nose without bleeding or purulent drainage NECK: Trachea midline. Supple, nontender. No palpable thyroid enlargement or nodularity. CARDIOVASCULAR: Intermittently tachycardic; regular rhythm without murmurs, gallops, or rubs. No JVD. Peripheral pulses symmetric. RESPIRATORY/CHEST: Tolerating 23L oxygen via nasal cannula, diminished air exchange throughout (right >left). GASTROINTESTINAL: Abdomen firm, nontender. Bowel sounds present. GENITOURINARY: Without palpable bladder distension. MUSCULOSKELETAL: Extremities without clubbing, cyanosis or edema. LYMPHATICS: No palpable cervical or supraclavicular adenopathy. NEUROLOGICAL: Awake and alert; able to participate in conversation appropriately ; follows commands. PSYCHIATRIC: Patient is appropriately tearful when discussing her family. . (Freda Nathan) Diagnostic Tests Laboratory Laboratory Tests Test 5/22/17 04/20/17 04/20/17 04/20/17 16:56 05:10 09:46 13:00 Fibrinogen 230 mg/dL (227-377) White Blood Count TH/MM3 4.5 TH/MM3 (4.0-11.0) (4.0-11.0) Red Blood Count MIL/MM3 2.88 MIL/MM3 (4.00-5.30) (4.00-5.30) Hemoglobin GM/DL 8.1 GM/DL (11.6-15.3) (11.6-15.3) Hematocrit % (35.0-46.0) 25.3 % (35.0-46.0) Mean Corpuscular Volume FL 87.9 FL (80.0-100.0) (80.0-100.0) Mean Corpuscular Hemoglobin PG (27.0-34.0) 28.2 PG (27.0-34.0) Mean Corpuscular Hemoglobin % (32.0-36.0) 32.1 % Concent (32.0-36.0) Red Cell Distribution Width % (11.6-17.2) 19.5 % (11.6-17.2) Platelet Count TH/MM3 37 TH/MM3 (150-450) (150-450) Mean Platelet Volume FL (7.0-11.0) 9.4 FL (7.0-11.0) Neutrophils (%) (Auto) % (16.0-70.0) % (16.0-70.0) Lymphocytes (%) (Auto) % (9.0-44.0) % (9.0-44.0) Monocytes (%) (Auto) % (0.0-8.0) % (0.0-8.0) Eosinophils (%) (Auto) % (0.0-4.0) % (0.0-4.0) Basophils (%) (Auto) % (0.0-2.0) % (0.0-2.0) Neutrophils # (Auto) TH/MM3 TH/MM3 (1.8-7.7) (1.8-7.7) Lymphocytes # (Auto) TH/MM3 TH/MM3 (1.0-4.8) (1.0-4.8) Monocytes # (Auto) TH/MM3 (0-0.9) TH/MM3 (0-0.9) Eosinophils # (Auto) TH/MM3 (0-0.4) TH/MM3 (0-0.4) Basophils # (Auto) TH/MM3 (0-0.2) TH/MM3 (0-0.2) CBC Comment AUTO DIFF Differential Total Cells 100 100 Counted Neutrophils % (Manual) % (16-70) 39 % (16-70) Band Neutrophils % % (0-6) 21 % (0-6) Lymphocytes % % (9-44) 35 % (9-44) Monocytes % % (0-8) 3 % (0-8) Neutrophils # (Manual) TH/MM3 2.8 TH/MM3 (1.8-7.7) (1.8-7.7) Metamyelocytes % (0-1) 2 % (0-1) Myelocytes % (0-0) Differential Comment FINAL DIFF MANUAL Atypical Lymphocytes % (0-0) Sodium Level MEQ/L 147 MEQ/L (136-145) (136-145) Potassium Level MEQ/L 3.5 MEQ/L (3.5-5.1) (3.5-5.1) Chloride Level MEQ/L (98-107) 106 MEQ/L (98-107) Carbon Dioxide Level MEQ/L 34.8 MEQ/L (21.0-32.0) (21.0-32.0) Anion Gap MEQ/L (5-15) 6 MEQ/L (5-15) Blood Urea Nitrogen MG/DL (7-18) 21 MG/DL (7-18) Creatinine MG/DL 0.38 MG/DL (0.50-1.00) (0.50-1.00) Estimat Glomerular Filtration ML/MIN (>89) 179 ML/MIN Rate (>89) Random Glucose MG/DL (74-106) 170 MG/DL (74-106) Calcium Level MG/DL 8.3 MG/DL (8.5-10.1) (8.5-10.1) Phosphorus Level MG/DL 2.3 MG/DL (2.5-4.9) (2.5-4.9) Magnesium Level MG/DL 2.2 MG/DL (1.5-2.5) (1.5-2.5) Total Bilirubin MG/DL 0.3 MG/DL (0.2-1.0) (0.2-1.0) Aspartate Amino Transf U/L (15-37) 11 U/L (15-37) (AST/SGOT) Alanine Aminotransferase U/L (10-53) 42 U/L (10-53) (ALT/SGPT) Alkaline Phosphatase U/L (45-117) 50 U/L (45-117) Total Protein GM/DL 5.4 GM/DL (6.4-8.2) (6.4-8.2) Albumin GM/DL 2.4 GM/DL (3.4-5.0) (3.4-5.0) Platelet Estimate LOW (NORMAL) Platelet Morphology Comment NORMAL (NORMAL) Ovalocytes 1+ (NORMAL) Acanthocytes OCC (NORMAL) Blood Gas Puncture Site RT RADIAL Blood Gas Patient Temperature 98.6 Blood Gas HCO3 32 mmol/L (22-26) Blood Gas Base Excess 7.8 mmol/L (-2-2) Blood Gas Oxygen Saturation 95 % (90-100) Arterial Blood pH 7.47 (7.380-7.420) Arterial Blood Partial 44 mmHg (38-42) Pressure CO2 Arterial Blood Partial 103 mmHg Pressure O2 (61-120) Arterial Blood Oxygen Content 11.4 Vol % (12.0-20.0) Arterial Blood 1.9 % (0-4) Carboxyhemoglobin Arterial Blood Methemoglobin 1.0 % (0-2) Blood Gas Hemoglobin 8.4 G/DL (12.0-16.0) Oxygen Delivery Device VENTILATOR Blood Gas Ventilator Setting CPAP 5/10PS Blood Gas Inspired Oxygen 30 % Test 04/20/17 04/21/17 04/22/17 16:16 04:54 05:46 Stool C. difficile Toxin (PCR) NEGATIVE (NEGATIVE) Stl C. difficile Toxin PRESUMPTIVE Epiderm 027 NEGATIVE (NEGATIVE) White Blood Count 3.0 TH/MM3 2.6 TH/MM3 (4.0-11.0) (4.0-11.0) Red Blood Count 2.67 MIL/MM3 2.81 MIL/MM3 (4.00-5.30) (4.00-5.30) Hemoglobin 7.7 GM/DL 8.0 GM/DL (11.6-15.3) (11.6-15.3) Hematocrit 23.2 % 24.4 % (35.0-46.0) (35.0-46.0) Mean Corpuscular Volume 87.1 FL 86.8 FL (80.0-100.0) (80.0-100.0) Mean Corpuscular Hemoglobin 29.0 PG 28.6 PG (27.0-34.0) (27.0-34.0) Mean Corpuscular Hemoglobin 33.3 % 32.9 % Concent (32.0-36.0) (32.0-36.0) Red Cell Distribution Width 18.9 % 18.8 % (11.6-17.2) (11.6-17.2) Platelet Count 33 TH/MM3 55 TH/MM3 (150-450) (150-450) Mean Platelet Volume 9.2 FL 9.7 FL (7.0-11.0) (7.0-11.0) Neutrophils (%) (Auto) 85.7 % 84.0 % (16.0-70.0) (16.0-70.0) Lymphocytes (%) (Auto) 10.2 % 11.9 % (9.0-44.0) (9.0-44.0) Monocytes (%) (Auto) 4.0 % (0.0-8.0) 4.0 % (0.0-8.0) Eosinophils (%) (Auto) 0.0 % (0.0-4.0) 0.0 % (0.0-4.0) Basophils (%) (Auto) 0.1 % (0.0-2.0) 0.1 % (0.0-2.0) Neutrophils # (Auto) 2.6 TH/MM3 2.1 TH/MM3 (1.8-7.7) (1.8-7.7) Lymphocytes # (Auto) 0.3 TH/MM3 0.3 TH/MM3 (1.0-4.8) (1.0-4.8) Monocytes # (Auto) 0.1 TH/MM3 0.1 TH/MM3 (0-0.9) (0-0.9) Eosinophils # (Auto) 0.0 TH/MM3 0.0 TH/MM3 (0-0.4) (0-0.4) Basophils # (Auto) 0.0 TH/MM3 0.0 TH/MM3 (0-0.2) (0-0.2) CBC Comment DIFF FINAL AUTO DIFF Differential Comment AUTO DIFF CONFIRMED Sodium Level 142 MEQ/L 140 MEQ/L (136-145) (136-145) Potassium Level 4.4 MEQ/L 3.9 MEQ/L (3.5-5.1) (3.5-5.1) Chloride Level 104 MEQ/L 99 MEQ/L (98-107) (98-107) Carbon Dioxide Level 32.2 MEQ/L 34.0 MEQ/L (21.0-32.0) (21.0-32.0) Anion Gap 6 MEQ/L (5-15) 7 MEQ/L (5-15) Blood Urea Nitrogen 15 MG/DL (7-18) 15 MG/DL (7-18) Creatinine 0.30 MG/DL 0.46 MG/DL (0.50-1.00) (0.50-1.00) Estimat Glomerular Filtration 235 ML/MIN 143 ML/MIN Rate (>89) (>89) Random Glucose 141 MG/DL 161 MG/DL (74-106) (74-106) Calcium Level 8.9 MG/DL 8.9 MG/DL (8.5-10.1) (8.5-10.1) Phosphorus Level 3.8 MG/DL (2.5-4.9) Magnesium Level 2.2 MG/DL (1.5-2.5) Total Bilirubin 0.5 MG/DL (0.2-1.0) Aspartate Amino Transf 11 U/L (15-37) (AST/SGOT) Alanine Aminotransferase 38 U/L (10-53) (ALT/SGPT) Alkaline Phosphatase 50 U/L (45-117) Total Protein 5.5 GM/DL (6.4-8.2) Albumin 2.4 GM/DL (3.4-5.0) Platelet Estimate LOW (NORMAL) Platelet Morphology Comment NORMAL (NORMAL) Ovalocytes 1+ (NORMAL) . (Freda Nathan) Result Diagram: 04/22/17 0546 04/22/17 0546 Microbiology Microbiology Date/Time Procedure Status Source Growth 5/22/17 16:16 Stool Occult Blood (RAJEEV) - Final Complete Stool Stool HEMOCCULT POSITIVE . Procedures Extubated on 04/20/17; currently tolerating 2-3L oxygen via nasal cannula with oxygen saturations at 100%. Follow-up chest x-ray on 04/17/17 showing no acute pulmonary disease . (Freda Nathan) Assessment and Plan Disease Oriented Problem List: (1) Chronic obstructive pulmonary disease (2) SCLC (small cell lung carcinoma) (3) Atrial fibrillation (4) Anxiety (5) Hypertension (6) Metastases to the liver Symptom Scale: (1) Anxiety Comment: Patient denies anxiety on exam, but admits to chronic anxiety which is exacerbated by recent cancer diagnosis and current hospitalization. Current orders for lorazepam 0.5mg IV q8 hours PRN for anxiety; patient has received 1 dose in the past 24 hours. . (2) Shortness of breath Comment: Patient was successfully extubated on 04/20/17;currently tolerating 2- 3L oxygen via nasal cannula with saturations of 100%. F/U chest x-ray on 04/20/17 showing no acute cardiopulmonary disease. Patient completed cefepime course on 04/18/17. Sputum culture on 04/18/17 - S.Maltophilia; Zosyn was discontinued and the patient was started on Bactrim. . (3) Pain Comment: No nonverbal signs are symptoms of pain are observed on exam or reported by nursing staff. Possible causes of pain may include SMLC stents of metastatic disease to the liver, dyspnea, invasive lines, immobility, bedbound status, Reddy catheter etc. PRN Toutle and IV Morphine are available for pain but has not been administered in the past week. . Pertinent Non-Medical Issues Psychosocial: Patient is originally from [facility]. She has 2 sisters and one brother with whom she is very close, all live locally. Patient's passed with you years ago. The patient's daughter, Gabby, states they had not been together in 15 years but he was the love of her mother's life. She states her mother's health declined after his . She has 4 adult children (Vesta, Elva, Gabby and Wolf) between the ages of 23 and 31 years of age. Spiritual: Druze allison Legal: Per [place] statutes, in the absence of written advanced directives healthcare proxy decision-making falls to the majority of the patient's for adult children. In reviewing notes, the patient previously verbalized that she wanted her "sister" to act in the role of the health care surrogate decision maker. However, the sister should she was referring to was not specified and the legal document was not completed. Ethical issues impacting care: No known ethical issues impacting care at this time . Important Contacts Yessenia Prasad, sister: [phone] Parul Fonseca, sister: [phone] Vesta Hook, daughter: [phone] Gabby Rogers, daughter: [phone] Elva Hook, daughter: [phone] Wolf Fonseca, son: No phone available . Prognosis Patient is a 51-year-old female with SCLC and extensive metastatic disease to the liver in January,. Patient also as advanced COPD. She was started on palliative chemotherapy in 02/2017; patient tolerated chemotherapy well and it appeared to be effective. Currently hospitalized with an acute COPD exacerbation. Patient remains sedated and intubated on mechanical ventilator, unable to tolerate CPAP trials. Goals remain aggressive, however patient's overall prognosis is poor. . Code Status: Full Code Plan * FULL CODE * Decision-making: HCS forms completed 04/16/17, designating the patient's sister (Yessenia Prasad) as the healthcare surrogate decision maker. Readdressed today 04/22/17, patient again confirms designation of her sister (Yessenia) as the healthcare surrogate decision maker. * Discussed completion of a living will and the patient's five wishes. Patient was open to discussing further. Palliative Care DEPUTY CONTROLLER, Savannah Lockett, to follow up later today. * Goals: Goals remain aggressive. * Managementanxiety: Patient denies anxiety on exam, but admits to chronic anxiety which is exacerbated by recent cancer diagnosis and current hospitalization. Current orders for lorazepam 0.5mg IV q8 hours PRN for anxiety ; patient has received 1 dose in the past 24 hours. * Symptom managementdyspnea: Patient was successfully extubated on 04/20/17; currently tolerating 2-3L oxygen via nasal cannula with saturations of 100%. F/ U chest x-ray on 04/20/17 showing no acute cardiopulmonary disease. Patient completed cefepime course on 04/18/17. Sputum culture on 04/18 - S.Maltophilia; Zosyn was discontinued and the patient was started on Bactrim. * Symptom managementpain: No nonverbal signs are symptoms of pain are observed on exam or reported by nursing staff. Possible causes of pain may include SMLC stents of metastatic disease to the liver, dyspnea, invasive lines, immobility, etc. PRN Toutle and IV Morphine are available for pain but has not been administered in the past week. * Physical, occupational and speech therapy are following. Patient was started on a mechanically soft diet with thin liquids yesterday 04/22/17; appetite remains poor with 25%-50% intake. Total protein 5.5, albumin 2.4. Patient admits to feeling weak, patient was able to transfer from bed to chair this morning with moderate assist 2. Per oncology, patient will need extensive physical conditioning before she will be a candidate for further chemotherapy. Recommendations for SNF placement upon discharge, however patient is adamant that she is going to return to her home. Threatening to leave AMA per nursing. * Dr. Martinez states patient's overall prognosis is poor, making recommendations for hospice * Discussed with patient's nurse, Sybil. Patient has not yet been told that her sister (Parul) last week on 04/17/17. Per nursing, patient stating she knows something is wrong because no one has come to see her since the family meeting on 04/20/17. * Patient is appropriately tearful when discussing her recent cancer diagnosis and her family. She reports feeling very depression and is requesting an antidepressant to see if it assist with symptom management. Psychiatry consult pending. * Palliative care will continue to follow this patient throughout her hospitalization to establish trust, assist with symptom management and clarification of medical treatment goals. . (Freda Nathan) Attestation To help prompt me to consider important information that might be impacting today's encounter and assessment, information from prior notes written by myself or my colleagues may have been "brought forward" into today's note. My signature on this note, however, is an attestation that I personally performed the exam, history, and/or decision-making noted today, and, unless otherwise indicated, the interactions with patient, family, and staff as well as the review of records all occurred today. I also attest that the listed assessment and stated plan reflect my best clinical judgment today based on the combination of historical information, prior notes, and today's exam/ interactions. When time spent is documented, it refers only to time spent today by the signer, or if indicated, combined time spent today by collaborating physician/nurse practitioner. . (Freda Nathan) Collaborating MD Comments . Chart reviewed. Case discussed with palliative care INSURANCE VERIFICATION SPECIALIST. Above INSURANCE VERIFICATION SPECIALIST note reviewed and I concur. . (aPco Dash MD) Freda Nathan April 22, 2017 12:53 Paco Dash MD April 27, 2017 16:35
[2017-04-22] MEDS: LORazepam 2 MG/ML VIAL IV PUSH PRN ×2 (13:05→22:43)
--- NOTE | 2017-04-22 13:43 | HHI.PR ---
Subjective Interval History awake alert and oriented upset, she just found out about her sister's wants to go home on 3 L NC family at bed side no other complaints Vitals/Results Intake & Output 04/21/17 04/21/17 04/22/17 15:00 23:00 07:00 Intake Total 612 ml 350 ml 102 ml Output Total 1600 ml 930 ml 450 ml Balance -988 ml -580 ml -348 ml Intake Oral 450 ml 240 ml IV Total 162 ml 110 ml 102 ml Output Urine Total 1600 ml 930 ml 450 ml # Bowel Movements 0 0 Vital Signs Vital Signs Date Time Temp Pulse Resp B/P Pulse Ox O2 Delivery O2 Flow Rate FiO2 04/22/17 13:05 119 04/22/17 13:05 119 37 134/76 100 04/22/17 12:00 110 04/22/17 12:00 110 27 118/67 100 04/22/17 11:00 98 04/22/17 11:00 98 04/22/17 11:00 98 17 124/65 100 04/22/17 10:00 104 23 127/65 100 04/22/17 10:00 104 04/22/17 10:00 104 04/22/17 09:00 114 04/22/17 09:00 114 35 118/64 100 04/22/17 09:00 114 35 118/64 100 04/22/17 09:00 114 04/22/17 08:00 83 04/22/17 08:00 95 36 133/77 100 04/22/17 08:00 95 36 133/77 100 04/22/17 08:00 95 04/22/17 08:00 95 04/22/17 07:57 100 Nasal Cannula 3.00 04/22/17 07:00 100 Nasal Cannula 3.00 30 04/22/17 06:00 89 04/22/17 05:00 90 04/22/17 05:00 90 28 112/64 100 04/22/17 04:06 96 30 04/22/17 04:00 97.9 86 26 108/59 98 04/22/17 04:00 86 04/22/17 03:00 82 29 104/59 98 04/22/17 02:00 86 04/22/17 02:00 86 29 102/60 96 04/22/17 01:25 98 30 04/22/17 01:00 89 27 102/56 96 04/22/17 00:00 97.9 96 30 101/64 96 04/22/17 00:00 96 04/21/17 23:05 99 30 04/21/17 23:00 92 26 128/64 99 04/21/17 22:00 101 04/21/17 22:00 101 30 128/75 99 04/21/17 21:00 111 30 123/72 99 04/21/17 20:30 106 30 121/71 74 04/21/17 20:00 108 04/21/17 20:00 98.8 108 33 120/67 100 04/21/17 19:28 100 Nasal Cannula 2.00 04/21/17 19:00 100 Nasal Cannula 3.00 33 04/21/17 18:01 110 04/21/17 18:00 109 04/21/17 17:30 99 04/21/17 17:30 99 33 129/71 100 04/21/17 17:00 98 19 123/76 100 04/21/17 17:00 98 04/21/17 16:30 96 26 129/88 100 04/21/17 16:30 96 04/21/17 16:00 95 32 117/69 99 04/21/17 16:00 95 04/21/17 16:00 95 04/21/17 15:30 95 04/21/17 15:30 95 12 106/67 100 04/21/17 15:30 95 04/21/17 15:00 109 19 114/69 100 04/21/17 15:00 109 19 114/69 100 04/21/17 15:00 109 04/21/17 15:00 109 04/21/17 14:30 104 04/21/17 14:30 104 30 123/70 100 04/21/17 14:30 104 30 123/70 100 04/21/17 14:30 104 04/21/17 14:00 101 04/21/17 14:00 101 10 123/70 100 04/21/17 14:00 101 04/21/17 14:00 101 10 123/70 100 CBC/BMP: 04/22/17 0546 04/22/17 0546 Lab Results Laboratory Tests Test 04/22/17 05:46 White Blood Count 2.6 TH/MM3 Red Blood Count 2.81 MIL/MM3 Hemoglobin 8.0 GM/DL Hematocrit 24.4 % Mean Corpuscular Volume 86.8 FL Mean Corpuscular Hemoglobin 28.6 PG Mean Corpuscular Hemoglobin 32.9 % Concent Red Cell Distribution Width 18.8 % Platelet Count 55 TH/MM3 Mean Platelet Volume 9.7 FL Neutrophils (%) (Auto) 84.0 % Lymphocytes (%) (Auto) 11.9 % Monocytes (%) (Auto) 4.0 % Eosinophils (%) (Auto) 0.0 % Basophils (%) (Auto) 0.1 % Neutrophils # (Auto) 2.1 TH/MM3 Lymphocytes # (Auto) 0.3 TH/MM3 Monocytes # (Auto) 0.1 TH/MM3 Eosinophils # (Auto) 0.0 TH/MM3 Basophils # (Auto) 0.0 TH/MM3 CBC Comment AUTO DIFF Differential Comment AUTO DIFF CONFIRMED Platelet Estimate LOW Platelet Morphology Comment NORMAL Ovalocytes 1+ Sodium Level 140 MEQ/L Potassium Level 3.9 MEQ/L Chloride Level 99 MEQ/L Carbon Dioxide Level 34.0 MEQ/L Anion Gap 7 MEQ/L Blood Urea Nitrogen 15 MG/DL Creatinine 0.46 MG/DL Estimat Glomerular Filtration 143 ML/MIN Rate Random Glucose 161 MG/DL Calcium Level 8.9 MG/DL Physical Exam General General Appearance: Well Developed, Well Nourished, No Acute Distress, Comfortable Eyes Eye Exam: Pupils Equal, Pupils Reactive Ears & Nose Ears & Nose Exam: Nasal Mucosa [place] Throat Throat Exam: Oral Mucosa [place] & Moist Neck Neck Exam: Neck Supple, Trachea Midline Pulmonary Resp Exam: No Distress, Decreased Bases Cardiology CV Exam: Good Perfusion, Tachycardia Gastrointestinal/Abdomen GI Exam: Soft, Non-Tender, Bowel Sounds Present, Distended Genitourinary Exam: Clear Urine Musculoskeletal MS Exam: Joints Intact Integumentary Skin Exam: Warm, Dry Extremeties Extremities Exam: Pedal Pulses Palpable, Trace Edema Assessment/Plan Problem List: (1) Hypercapnic respiratory failure (2) Acute exacerbation of chronic obstructive pulmonary disease (COPD) (3) SCLC (small cell lung carcinoma) Plan: with liver mets (4) Hyperglycemia (5) Depression (6) A-fib (7) Hypertension Assessment/Plan s/p extubation Duonebs IV steroids; methylprednisolone decreased to q12 h NIPPV prn during day and schedulaed at night hoarse voice likely from prolonged and recurrent intubation cultures negative oncology following, input appreciated CT PE protocol reviewed reduction in size of mediastinal and hilar adenopathy. An reduction in size of left hepatic lobe metastasis. Severe emphysematous changes. no chemotherapy plans at this time, hospice recommended; patient wants full aggressive care Leukopenia, monitor WBC Thrombocytopenia, HIT neg, platelets improved today Bowel regimen on po diet Anemia post hydration will monitor hx afib, continue Cardizem remains SR/ST SCD DVT prophylaxis Pepcid for GI prophylaxis Palliative care following, goals remains aggressive. Input appreciated CM for dc planning, PT eval Full code Labs reviewed likely transfer to [facility] in am discussed with patient and family at bed side D/W RN discussed with case management : Tee patino Problem Qualifiers (1) Hypercapnic respiratory failure: Qualified Code: J96.02 - Acute respiratory failure with hypercapnia (2) SCLC (small cell lung carcinoma): Qualified Code: C34.90 - SCLC (small cell lung carcinoma), unspecified laterality (3) Depression: Qualified Code: F32.9 - Depression, unspecified depression type (4) A-fib: Qualified Code: I48.91 - Atrial fibrillation, unspecified type (5) Hypertension: Qualified Code: I10 - Essential hypertension Kaylyn Gregory MD April 22, 2017 13:43
--- NOTE | 2017-04-22 15:28 | HHI.PR ---
Subjective Remarks ASS no DISTRESS ALERT , Objective Vital Signs Date Time Temp Pulse Resp B/P Pulse Ox O2 Delivery O2 Flow Rate FiO2 04/22/17 14:00 104 04/22/17 13:05 119 04/22/17 13:05 119 04/22/17 13:05 119 37 134/76 100 04/22/17 12:00 110 04/22/17 12:00 110 04/22/17 12:00 110 27 118/67 100 04/22/17 11:00 98 04/22/17 11:00 98 04/22/17 11:00 98 04/22/17 11:00 98 17 124/65 100 04/22/17 10:00 104 04/22/17 10:00 104 23 127/65 100 04/22/17 10:00 104 04/22/17 10:00 104 04/22/17 09:00 114 04/22/17 09:00 114 04/22/17 09:00 114 35 118/64 100 04/22/17 09:00 114 35 118/64 100 04/22/17 09:00 114 04/22/17 08:00 83 04/22/17 08:00 95 36 133/77 100 04/22/17 08:00 95 04/22/17 08:00 95 36 133/77 100 04/22/17 08:00 95 04/22/17 08:00 95 04/22/17 07:57 100 Nasal Cannula 3.00 04/22/17 07:00 100 Nasal Cannula 3.00 30 04/22/17 06:00 89 04/22/17 05:00 90 04/22/17 05:00 90 28 112/64 100 04/22/17 04:06 96 30 04/22/17 04:00 97.9 86 26 108/59 98 04/22/17 04:00 86 04/22/17 03:00 82 29 104/59 98 04/22/17 02:00 86 04/22/17 02:00 86 29 102/60 96 04/22/17 01:25 98 30 04/22/17 01:00 89 27 102/56 96 04/22/17 00:00 97.9 96 30 101/64 96 04/22/17 00:00 96 04/21/17 23:05 99 30 04/21/17 23:00 92 26 128/64 99 04/21/17 22:00 101 04/21/17 22:00 101 30 128/75 99 04/21/17 21:00 111 30 123/72 99 04/21/17 20:30 106 30 121/71 74 04/21/17 20:00 108 04/21/17 20:00 98.8 108 33 120/67 100 04/21/17 19:28 100 Nasal Cannula 2.00 04/21/17 19:00 100 Nasal Cannula 3.00 33 04/21/17 18:01 110 04/21/17 18:00 109 04/21/17 17:30 99 04/21/17 17:30 99 33 129/71 100 04/21/17 17:00 98 19 123/76 100 04/21/17 17:00 98 04/21/17 16:30 96 26 129/88 100 04/21/17 16:30 96 04/21/17 16:00 95 32 117/69 99 04/21/17 16:00 95 04/21/17 16:00 95 04/21/17 15:30 95 04/21/17 15:30 95 12 106/67 100 04/21/17 15:30 95 I/O 04/21/17 04/21/17 04/21/17 04/22/17 04/22/17 04/22/17 07:00 15:00 23:00 07:00 15:00 23:00 Intake Total 100 ml 612 ml 350 ml 102 ml 680 ml Output Total 550 ml 1600 ml 930 ml 450 ml 600 ml Balance -450 ml -988 ml -580 ml -348 ml 80 ml Intake Oral 450 ml 240 ml 680 ml IV Total 100 ml 162 ml 110 ml 102 ml Tube Feeding 0 ml Output Urine Total 550 ml 1600 ml 930 ml 450 ml 600 ml # Bowel Movements 0 0 0 Result Diagram: 04/22/1754504/22/17545 Objective Remarks GENERAL: SKIN: Warm and dry. HEAD: Atraumatic. Normocephalic. EYES: Pupils equal and round. No scleral icterus. No injection or drainage. ENT: No nasal bleeding or discharge. Mucous membranes pink and moist. NECK: Trachea midline. No JVD. CARDIOVASCULAR: Regular rate and rhythm. RESPIRATORY: No accessory muscle use. Clear to auscultation. Breath sounds equal bilaterally. GASTROINTESTINAL: Abdomen soft, non-tender, nondistended. Hepatic and splenic margins not palpable. MUSCULOSKELETAL: Extremities without clubbing, cyanosis, or edema. No obvious deformities. NEUROLOGICAL: Awake and alert. No obvious cranial nerve deficits. Motor grossly within normal limits. Five out of 5 muscle strength in the arms and legs. Normal speech. PSYCHIATRIC: Appropriate mood and affect; insight and judgment normal. Assessment and Plan Assessment and Plan ass: respiratory failure copd lung CA PLAN O2 NEEDED BRONCHODILATOR THERAPY INCREASE ACTIVITY Audra Zhu MD April 22, 2017 15:28
[2017-04-22] MEDS: ATORVASTATIN 20 MG TAB PO SCH (19:56)
[2017-04-22] MEDS: MELATONIN 5 MG TAB PO SCH (19:56)
[2017-04-22] MEDS: methylPREDNISolone SOD SUCC 40 MG/1 ML VIAL IV PUSH SCH (19:56)
[2017-04-23] VITALS (17 sets, daily range): BP systolic 97–128; BP diastolic 52–74; PULSE 84–118; RESP 18–38; TEMP 96.9–98; O2SAT 96–100
[2017-04-23] MEDS: RESP: ALBUTEROL 2.5 MG/IPRATROPIUM 0.5 MG NEB (SCH) NEB ×5 (03:30→20:51)
[2017-04-23] MEDS: INSULIN NovoLIN REGULAR SUPPLEMENTAL SCALE SQ SCH ×3 (04:51→18:00)
[2017-04-23] MEDS: METOCLOPRAMIDE HCL 10 MG/2 ML VIAL IV PUSH SCH ×3 (04:53→21:30)
[2017-04-23 07:23] LABS: AUTOMATED NEUTROPHIL # 3.1 TH/MM3 (1.8-7.7); BASOPHIL % 0.2 % (0.0-2.0); LYMPH % 9.8 % (9.0-44.0); LYMPHOCYTE # 0.4 TH/MM3 (1.0-4.8); MEAN CELL VOLUME 87.1 FL (80.0-100.0); MEAN CORPUSCULAR HEMOGLOBIN 28.9 PG (27.0-34.0); MEAN CORPUSCULAR HGB CONC 33.2 % (32.0-36.0); PLATELET COUNT 84 TH/MM3 (150-450); RED BLOOD COUNT 2.87 MIL/MM3 (4.00-5.30); RED CELL DISTRIBUTION WIDTH 18.8 % (11.6-17.2); WHITE BLOOD COUNT 3.7 TH/MM3 (4.0-11.0)
[2017-04-23 07:36] LABS: HEMO FLAGS AUTO DIFF
[2017-04-23 07:54] LABS: POTASSIUM 4.2 MEQ/L (3.5-5.1)
[2017-04-23] MEDS: RESP: BUDESONIDE 0.5 MG/2 ML NEB NEB SCH ×2 (07:57→20:50)
[2017-04-23] MEDS: CHLORHEXIDINE 0.12% (ORAL KIT) 15 ML CUP MT SCH ×2 (08:00→20:00)
[2017-04-23] MEDS: FREE WATER G-TUBE SCH ×2 (08:23→21:38)
[2017-04-23] MEDS: LANSOPRAZOLE SOLUTAB 30 MG TAB NG SCH (08:35)
[2017-04-23] MEDS: SODIUM CHLORIDE 0.9% FLUSH 10 ML FLUSH IV FLUSH SCH ×2 (08:35→21:29)
[2017-04-23] MEDS: methylPREDNISolone SOD SUCC 40 MG/1 ML VIAL IV PUSH SCH ×2 (08:35→21:29)
[2017-04-23] MEDS: SULFAMETHOXAZOLE-TRIMETHOPRIM 400-80 MG TAB PO SCH (08:35)
[2017-04-23] MEDS: DILTIAZEM HCL 30 MG TAB PO SCH ×4 (08:35→21:30)
[2017-04-23] MEDS: TIOTROPIUM BROMIDE 18 MCG INH INH SCH (08:35)
[2017-04-23] MEDS: BUDESONIDE-FORMOTEROL 160/4.5 MCG INHALER INH SCH ×2 (08:35→21:30)
[2017-04-23 09:12] LABS: OVALOCYTES 1+ (NORMAL)
[2017-04-23 09:13] LABS: PLATELET ESTIMATE SMEAR LOW (NORMAL); PLATELET MORPHOLOGY NORMAL (NORMAL); SCAN/DIFF AUTO DIFF CONFIRMED
--- NOTE | 2017-04-23 09:22 | HHI.PR ---
Subjective Remarks ASS no DISTRESS ALERT , Objective Vital Signs Date Time Temp Pulse Resp B/P Pulse Ox O2 Delivery O2 Flow Rate FiO2 04/23/17 08:00 109 04/23/17 08:00 109 28 97/70 96 04/23/17 07:00 99 Nasal Cannula 3.00 04/23/17 06:00 84 04/23/17 04:00 97.6 85 22 100/61 100 04/23/17 04:00 85 04/23/17 03:00 86 27 97/52 100 04/23/17 02:00 90 28 104/63 99 04/23/17 02:00 90 04/23/17 01:00 93 29 107/62 99 04/23/17 00:00 98.0 94 27 104/57 97 04/23/17 00:00 94 04/22/17 23:00 94 30 107/71 99 04/22/17 22:00 92 04/22/17 22:00 92 33 99/54 95 04/22/17 21:00 93 3 98/55 100 04/22/17 20:05 113 04/22/17 20:05 113 39 127/77 68 04/22/17 20:00 122 04/22/17 20:00 97.9 122 37 91 04/22/17 19:37 100 Nasal Cannula 3.00 04/22/17 19:00 101 34 100 04/22/17 19:00 101 04/22/17 19:00 100 Nasal Cannula 3.00 37 04/22/17 18:00 106 04/22/17 18:00 106 33 100 04/22/17 17:47 107 18 119/66 82 04/22/17 17:47 107 04/22/17 16:00 106 56 100 04/22/17 16:00 106 04/22/17 16:00 106 04/22/17 14:00 104 04/22/17 14:00 104 04/22/17 14:00 104 04/22/17 14:00 104 28 100 04/22/17 13:05 119 04/22/17 13:05 119 04/22/17 13:05 119 04/22/17 13:05 119 37 134/76 100 04/22/17 13:05 119 04/22/17 13:05 119 37 134/76 100 04/22/17 12:00 110 04/22/17 12:00 110 27 118/67 100 04/22/17 12:00 110 04/22/17 12:00 110 04/22/17 12:00 110 04/22/17 12:00 110 27 118/67 100 04/22/17 11:00 98 04/22/17 11:00 98 04/22/17 11:00 98 17 124/65 100 04/22/17 11:00 98 04/22/17 11:00 98 04/22/17 11:00 98 04/22/17 11:00 98 17 124/65 100 04/22/17 10:00 104 04/22/17 10:00 104 04/22/17 10:00 104 04/22/17 10:00 104 23 127/65 100 04/22/17 10:00 104 23 127/65 100 04/22/17 10:00 104 04/22/17 10:00 104 I/O 04/22/17 04/22/17 04/22/17 04/23/17 04/23/17 04/23/17 07:00 15:00 23:00 07:00 15:00 23:00 Intake Total 102 ml 680 ml 240 ml 240 ml Output Total 450 ml 600 ml Balance -348 ml 80 ml 240 ml 240 ml Intake Oral 680 ml 240 ml 240 ml IV Total 102 ml Output Urine Total 450 ml 600 ml # Voids 2 2 # Bowel Movements 0 0 0 Result Diagram: 04/23/1762104/23/17621 Objective Remarks GENERAL: SKIN: Warm and dry. HEAD: Atraumatic. Normocephalic. EYES: Pupils equal and round. No scleral icterus. No injection or drainage. ENT: No nasal bleeding or discharge. Mucous membranes pink and moist. NECK: Trachea midline. No JVD. CARDIOVASCULAR: Regular rate and rhythm. RESPIRATORY: No accessory muscle use. Clear to auscultation. Breath sounds equal bilaterally. GASTROINTESTINAL: Abdomen soft, non-tender, nondistended. Hepatic and splenic margins not palpable. MUSCULOSKELETAL: Extremities without clubbing, cyanosis, or edema. No obvious deformities. NEUROLOGICAL: Awake and alert. No obvious cranial nerve deficits. Motor grossly within normal limits. Five out of 5 muscle strength in the arms and legs. Normal speech. PSYCHIATRIC: Appropriate mood and affect; insight and judgment normal. Assessment and Plan Assessment and Plan ass: respiratory failure copd lung CA PLAN O2 NEEDED BRONCHODILATOR THERAPY INCREASE ACTIVITY Audra Zhu MD April 23, 2017 09:22
--- NOTE | 2017-04-23 11:53 | PD.CONS ---
History of Present Illness Service Infectious disease Consult Requested By Dr Min Schmitz Reason for Consult Evaluate patient with Stenotrophomonas in sputum, ?[facility] Primary Care Physician Gisselle Hammond M.D. Diagnoses: History of Present Illness Patient seen and examined. Records reviewed. Patient is a 51-year-old female, with history of COPD, oxygen dependent, uses 2 L nasal O2 at home, also with history of small cell lung cancer with metastases to the liver, has been getting some treatment, admitted to the hospital with worsening shortness of breath. There is some coughing with white sputum production. Patient on admission initially was on BiPAP, and soon after required intubation. Her chest x-ray did not show any acute cardiopulmonary process. She was given broad-spectrum antibiotics, as well as steroids. Patient was on Zithromax from 510 01/03/13, cefepime from 510 01/03/21, and Zosyn from 523 01/03/25. She is currently on Bactrim. There was a sputum culture from 521 that has Stenotrophomonas maltophilia. Patient has been afebrile the whole hospital stay. She's had multiple repeat chest x-rays which have been negative. She was successfully extubated on 523, and currently on 3 L nasal O2. She has very minimal coughing. Denies chest pain. Her shortness of breath is somewhat stable. Infectious disease consultation has been requested to evaluate the patient. Review of Systems Constitutional: DENIES: Fever, Chills Eyes: DENIES: Eye pain Ears, nose, mouth, throat: DENIES: Nasal discharge, Oral lesions, Throat pain, Ear Pain, Sinus Pain Respiratory: COMPLAINS OF: Cough, Shortness of breath, DENIES: Sputum production Cardiovascular: COMPLAINS OF: Dyspnea on Exertion, DENIES: Chest pain, Palpitations Gastrointestinal: DENIES: Abdominal pain, Diarrhea, Nausea, Vomiting, Difficulty Swallowing Genitourinary: DENIES: Dysuria Musculoskeletal: DENIES: Joint pain, Muscle aches, Joint Swelling Integumentary: DENIES: Rash Neurologic: DENIES: Headache Psychiatric: COMPLAINS OF: Anxiety, DENIES: Hallucinations Past Family Social History Allergies: Coded Allergies: Valium (Verified Allergy, Severe, HIVES, 04/07/17) *MDRO Multi-Drug Resistant Organism (Verified Adverse Reaction, Unknown, ) MRSA PCR Screen POSITIVE - 03/19/2016 Past Medical History COPD Hypertension hyperlipidemia Atrial fibrillation Small cell lung carcinoma with liver metastases Past Surgical History Hand surgery. Bilateral Tubal ligation. Port placement, right chest. Active Ordered Medications Tylenol prn [place] prn Albuterol Lipitor Pulmicort Tums Cardizem Hydralazine prn INsulin Labetalol prn Prevacid Ativan prn Magnesium Melatonin Solumedrol Reglan Morphine prn NTG oint Zofran prn Miralax prn Potassium Compazine prn Senna prn Spiriva Bactrim Social History She is not . Long-term history of smoking with ongoing tobacco abuse No alcohol use Drugs - tried marijuana for her appetite. No IV drugs. Physical Exam Vital Signs Vital Signs Date Time Temp Pulse Resp B/P Pulse Ox O2 Delivery O2 Flow Rate FiO2 04/23/17 10:31 109 04/23/17 10:00 118 04/23/17 09:00 116 04/23/17 08:00 109 04/23/17 08:00 109 04/23/17 08:00 109 28 97/70 96 04/23/17 07:00 99 Nasal Cannula 3.00 04/23/17 06:00 84 04/23/17 04:00 97.6 85 22 100/61 100 04/23/17 04:00 85 04/23/17 03:00 86 27 97/52 100 04/23/17 02:00 90 28 104/63 99 04/23/17 02:00 90 04/23/17 01:00 93 29 107/62 99 04/23/17 00:00 98.0 94 27 104/57 97 04/23/17 00:00 94 04/22/17 23:00 94 30 107/71 99 04/22/17 22:00 92 04/22/17 22:00 92 33 99/54 95 04/22/17 21:00 93 3 98/55 100 04/22/17 20:05 113 04/22/17 20:05 113 39 127/77 68 04/22/17 20:00 122 04/22/17 20:00 97.9 122 37 91 04/22/17 19:37 100 Nasal Cannula 3.00 04/22/17 19:00 101 34 100 04/22/17 19:00 101 04/22/17 19:00 100 Nasal Cannula 3.00 37 04/22/17 18:00 106 04/22/17 18:00 106 33 100 04/22/17 17:47 107 18 119/66 82 04/22/17 17:47 107 04/22/17 16:00 106 56 100 04/22/17 16:00 106 04/22/17 16:00 106 04/22/17 14:00 104 04/22/17 14:00 104 04/22/17 14:00 104 04/22/17 14:00 104 28 100 04/22/17 13:05 119 04/22/17 13:05 119 04/22/17 13:05 119 04/22/17 13:05 119 37 134/76 100 04/22/17 13:05 119 04/22/17 13:05 119 37 134/76 100 04/22/17 12:00 110 04/22/17 12:00 110 27 118/67 100 04/22/17 12:00 110 04/22/17 12:00 110 04/22/17 12:00 110 04/22/17 12:00 110 27 118/67 100 Physical Exam GENERAL: Patient is a well-nourished, well-developed CF, awake and alert, up in chair, looks comfortable at rest. Looks chronically ill appearing. SKIN: Warm and dry. No generalized rash, no ecchymoses and no evidence of embolic lesions. HEAD: Atraumatic. Normocephalic. No temporal wasting, or tenderness.Has alopecia EYES: [place] conjunctiva. No petechia or hemorrhage. Pupils equal, round and reactive to light. Extraocular movements full and intact. No scleral icterus. No injection or drainage. EARS, NOSE AND THROAT: Nose without bleeding or purulent nasal discharge. No sinus tenderness. Mucous membranes pink and moist. No oral lesions noted. No exudate. No oral thrush. NECK: Trachea midline. Supple and not tender, no meningeal signs CARDIOVASCULAR: Regular rate and rhythm. No murmurs, rubs or gallops heard RESPIRATORY: Poor air movement. Decreased BS throughout whole lung mathis ABDOMEN: Soft, non-tender, nondistended. Bowel sounds present and normoactive. No guarding. No rebound. No organomegaly. EXTREMITIES: No clubbing, cyanosis, or edema.No joint effusion, has good ROM. No calf tenderness. Well perfused and warm. NEUROLOGICAL: Awake and alert. Cranial nerves grossly intact. Motor grossly within normal limits. PSYCHIATRIC: Normal affect, calm and cooperative. LINE: Port No evidence of infection. PIV no evidence of infection Laboratory Laboratory Tests Test 04/23/17 06:22 White Blood Count 3.7 Red Blood Count 2.87 Hemoglobin 8.3 Hematocrit 25.0 Mean Corpuscular Volume 87.1 Mean Corpuscular Hemoglobin 28.9 Mean Corpuscular Hemoglobin 33.2 Concent Red Cell Distribution Width 18.8 Platelet Count 84 Mean Platelet Volume 8.7 Neutrophils (%) (Auto) 85.0 Lymphocytes (%) (Auto) 9.8 Monocytes (%) (Auto) 5.0 Eosinophils (%) (Auto) 0.0 Basophils (%) (Auto) 0.2 Neutrophils # (Auto) 3.1 Lymphocytes # (Auto) 0.4 Monocytes # (Auto) 0.2 Eosinophils # (Auto) 0.0 Basophils # (Auto) 0.0 CBC Comment AUTO DIFF Differential Comment AUTO DIFF CONFIRMED Platelet Estimate LOW Platelet Morphology Comment NORMAL Ovalocytes 1+ Sodium Level 140 Potassium Level 4.2 Chloride Level 101 Carbon Dioxide Level 32.0 Anion Gap 7 Blood Urea Nitrogen 16 Creatinine 0.47 Estimat Glomerular Filtration 140 Rate Random Glucose 151 Calcium Level 8.9 Date/Time Procedure Status Source Growth 04/19/17 16:16 Stool Occult Blood (RAJEEV) - Final Complete Stool Stool HEMOCCULT POSITIVE 04/18/17 16:27 Gram Stain - Final Complete Sputum Expectorated Sputum 04/18/17 16:27 Sputum Culture - Final Complete Stenotrophomonas Maltophilia Result Diagram: 04/23/1722 04/23/17 0622 Imaging RADIOLOGY STUDIES/FILMS REVIEWED Last Impressions Chest X-Ray 04/19/17 0600 Signed Impressions: Service Date/Time: Wednesday, April 19, 2017 03:51 - CONCLUSION: No acute cardiopulmonary disease. Therese Javier MD Cholangiopancreatography MRI 04/16/17 0000 Signed Impressions: Service Date/Time: Sunday, April 16, 2017 09:35 - CONCLUSION: 1. Unremarkable examination of the biliary tree. No evidence of ductal dilatation. 2. Cholelithiasis 3. Indeterminate lesions in liver as described above. Malignancy is not excluded. Administration of contrast would be helpful to further delineate these abnormalities Son Bryson MD Abdomen/Pelvis CT 04/15/17 0000 Signed Impressions: Service Date/Time: March 17:45 - CONCLUSION: 1. Biliary dilatation as described above. 2. Mass is again identified laterally in the right lobe. Central mass seen previously is poorly demonstrated on today's exam because of phase of the contrast. 3. Gallstones around a contracted gallbladder. Fred Vieyra MD FACR Abdomen X-Ray 04/15/17 0000 Signed Impressions: Service Date/Time: March 13:34 - CONCLUSION: Normal examination. Tomasz New MD CT Angiography 04/07/17 0031 Signed Impressions: Service Date/Time: Friday, April 07, 2017 01:13 - CONCLUSION: 1. No pulmonary emboli. 2. Reduction in size of the mediastinal and hilar adenopathy. 3. Reduction in size of the left hepatic lobe metastasis. 4. Severe emphysematous changes. Roberth Lockett Jr., MD Assessment and Plan Assessment and Plan IMPRESSION Severe COPD Respiratory failure, S/P extubation 04/20 Stenotrophomonas in sputum C/W colonization, clinically doubt PNA, sputum is from 04/18, not been on RX and has been extubated successfully Lung CA, with mets RECOMMENDATION Stop Abx Patient has received Abx 04/07-04/18, 04/20-04/23 Also on steroids Rx COPD Clinically does not look infected at this time fro pulmonary standpoint Thank you for this consultation I will be available prn Please reconsult if with any new ID issue or question Discussed Condition With D/W Isabel Flores MD April 23, 2017 11:53
--- NOTE | 2017-04-23 12:17 | PD.ONC.PN ---
Subjective Subjective Remarks Afebrile overnight. Patient very frustrated that she is still in the hospital. She wants to go home. She has threatened to leave against medical advice several times today. She is still very distraught over the recent of her sister. Objective Data Date Time Temp Pulse Resp B/P Pulse Ox O2 Delivery O2 Flow Rate FiO2 04/23/17 12:00 118 38 117/69 98 04/23/17 11:00 107 27 120/74 100 04/23/17 10:31 109 20 119/70 100 04/23/17 10:31 109 04/23/17 10:00 118 35 100 04/23/17 10:00 118 04/23/17 09:00 116 04/23/17 09:00 116 31 122/73 100 04/23/17 08:00 109 04/23/17 08:00 109 04/23/17 08:00 109 28 97/70 96 04/23/17 08:00 109 28 97/70 96 04/23/17 07:00 99 Nasal Cannula 3.00 04/23/17 06:00 84 04/23/17 04:00 97.6 85 22 100/61 100 04/23/17 04:00 85 04/23/17 03:00 86 27 97/52 100 04/23/17 02:00 90 28 104/63 99 04/23/17 02:00 90 04/23/17 01:00 93 29 107/62 99 04/23/17 00:00 98.0 94 27 104/57 97 04/23/17 00:00 94 04/22/17 23:00 94 30 107/71 99 04/22/17 22:00 92 04/22/17 22:00 92 33 99/54 95 04/22/17 21:00 93 3 98/55 100 04/22/17 20:05 113 04/22/17 20:05 113 39 127/77 68 04/22/17 20:00 122 04/22/17 20:00 97.9 122 37 91 04/22/17 19:37 100 Nasal Cannula 3.00 04/22/17 19:00 101 34 100 04/22/17 19:00 101 04/22/17 19:00 100 Nasal Cannula 3.00 37 04/22/17 18:00 106 04/22/17 18:00 106 33 100 04/22/17 17:47 107 18 119/66 82 04/22/17 17:47 107 04/22/17 16:00 106 56 100 04/22/17 16:00 106 04/22/17 16:00 106 04/22/17 14:00 104 04/22/17 14:00 104 04/22/17 14:00 104 04/22/17 14:00 104 28 100 04/22/17 13:05 119 04/22/17 13:05 119 04/22/17 13:05 119 04/22/17 13:05 119 37 134/76 100 04/22/17 13:05 119 04/22/17 13:05 119 37 134/76 100 04/23/17 04/23/17 04/23/17 07:00 15:00 23:00 Intake Total 240 ml Balance 240 ml Result Diagram: 04/23/17 0622 04/23/17 0622 Laboratory Results Laboratory Tests Test 04/23/17 06:22 White Blood Count 3.7 TH/MM3 Red Blood Count 2.87 MIL/MM3 Hemoglobin 8.3 GM/DL Hematocrit 25.0 % Mean Corpuscular Volume 87.1 FL Mean Corpuscular Hemoglobin 28.9 PG Mean Corpuscular Hemoglobin 33.2 % Concent Red Cell Distribution Width 18.8 % Platelet Count 84 TH/MM3 Mean Platelet Volume 8.7 FL Neutrophils (%) (Auto) 85.0 % Lymphocytes (%) (Auto) 9.8 % Monocytes (%) (Auto) 5.0 % Eosinophils (%) (Auto) 0.0 % Basophils (%) (Auto) 0.2 % Neutrophils # (Auto) 3.1 TH/MM3 Lymphocytes # (Auto) 0.4 TH/MM3 Monocytes # (Auto) 0.2 TH/MM3 Eosinophils # (Auto) 0.0 TH/MM3 Basophils # (Auto) 0.0 TH/MM3 CBC Comment AUTO DIFF Differential Comment AUTO DIFF CONFIRMED Platelet Estimate LOW Platelet Morphology Comment NORMAL Ovalocytes 1+ Sodium Level 140 MEQ/L Potassium Level 4.2 MEQ/L Chloride Level 101 MEQ/L Carbon Dioxide Level 32.0 MEQ/L Anion Gap 7 MEQ/L Blood Urea Nitrogen 16 MG/DL Creatinine 0.47 MG/DL Estimat Glomerular Filtration 140 ML/MIN Rate Random Glucose 151 MG/DL Calcium Level 8.9 MG/DL Administered Medications Medications (Trade) Dose Ordered Sig/Rossana Route PRN Reason Start Time Stop Time Status Last Admin Dose Admin Sodium Chloride (NS Flush) 2 ml BID IV FLUSH 04/07/17 09:00 04/23/17 08:35 Sodium Chloride (NS Flush) 2 ml UNSCH PRN IV FLUSH FLUSH AFTER USING IV ACCESS 04/07/17 01:00 04/15/17 13:12 Enoxaparin Sodium (Lovenox Inj) 40 mg Q24H SQ 04/07/17 01:00 Hold 04/17/17 23:38 Ondansetron HCl (Zofran Inj) 4 mg Q6H PRN IV NAUSEA 04/07/17 01:00 04/20/17 17:21 Calcium Carbonate (Tums Chew) 1,000 mg TID PRN CHEW DYSPEPSIA 04/07/17 01:00 04/19/17 13:17 Famotidine (Pepcid) 20 mg BID PO 04/07/17 09:00 Hold 04/18/17 09:14 Miscellaneous Information Patient in critical care unit? Ass... [id number] .XX 04/07/17 02:30 04/07/17 02:30 Potassium Bicarb/ Potassium Chloride (K-Lyte Cl Eff) 50 meq UNSCH PRN PO For Potassium 3.3 - 3.5 mEq/L 04/08/17 10:45 04/20/17 13:34 Potassium Phosphate (K-Phos) 2,000 mg Q4H PRN PO For Phosphorus < 2.5 mg/dL 04/08/17 10:45 04/20/17 13:34 Glycerin (Glycerin Adult Supp) 2 gm BID PRN RECTAL CONSTIPATION 04/14/17 21:00 04/16/17 00:29 Nitroglycerin (Nitroglycerin 2% Oint) 2 inch Q6H PRN TOPICAL SBP>160, DBP>90 04/15/17 13:00 04/15/17 13:50 Hydralazine HCl (Apresoline Inj) 10 mg Q1H PRN IV PUSH SBP>160, DBP>90 04/15/17 13:00 04/15/17 13:12 Labetalol HCl (Trandate Inj) 10 mg Q1H PRN IV PUSH SBP>160, DBP>90, HR>65 04/15/17 13:00 04/15/17 13:49 Morphine Sulfate (Morphine Inj) 2 mg Q3H PRN IV PUSH PAIN SCALE 6 TO 10 04/15/17 13:00 04/15/17 13:01 Prochlorperazine Edisylate (Compazine Inj) 5 mg Q6H PRN IV PUSH nausea 04/15/17 13:00 04/15/17 13:11 Metoclopramide HCl (Reglan Inj) 5 mg Q8HR IV PUSH 04/15/17 14:00 04/23/17 04:53 Chlorhexidine Gluconate (Peridex 0.12% Liq) 15 ml BID@08,20 MT 04/15/17 20:00 04/20/17 09:50 Lansoprazole (Prevacid Odt) 30 mg DAILY NG 04/19/17 09:00 04/23/17 08:35 Diltiazem HCl (Cardizem) 30 mg QID PO 04/19/17 18:00 04/23/17 08:35 Insulin Human Regular (NovoLIN R SUPPLEMENTAL SCALE) 1 Q6HR SQ 04/20/17 12:00 04/23/17 04:51 Water (Free Water) 250 ml Q12HR G-TUBE 04/20/17 12:15 04/20/17 12:15 Tiotropium [place] (Spiriva Inh) 18 mcg DAILY INH 04/20/17 14:00 04/23/17 08:35 Budesonide/ Formoterol Fumarate (Symbicort 160-4.5 Inh) 2 puff Q12HR INH 04/20/17 14:00 04/23/17 08:35 Melatonin (Melatonin) 5 mg HS PO 04/20/17 21:00 04/22/17 19:56 Lorazepam (Ativan Inj) 0.5 mg Q8H PRN IV PUSH BIPAP TOLERANCE/ANXIETY 04/20/17 20:45 04/22/17 22:43 Atorvastatin Calcium (Lipitor) 20 mg HS PO 04/21/17 21:00 04/22/17 19:56 Methylprednisolone Sodium Succinate (SoluMEDROL INJ) 40 mg Q12HR IV PUSH 04/22/17 21:00 04/23/17 08:35 Objective Remarks GENERAL: Middle aged female, sitting up in chair next to bed in nad. On 3L O2 via NC SKIN: Warm and dry. HEAD: Normocephalic. EYES: No injection or drainage. NECK: Supple, trachea midline. CARDIOVASCULAR: +S1/S2, tachy RESPIRATORY: scattered expiratory wheeze GASTROINTESTINAL: Abdomen soft, non-tender, nondistended. EXTREMITIES: No cyanosis MUSCULOSKELETAL: Adequate muscle tone. NEUROLOGICAL: No obvious focal deficit. Awake, alert, and oriented x3. Assessment/Plan Problem List: (1) SCLC (small cell lung carcinoma) Status: Chronic Plan: 04/23: resume Lovenox prophylaxis. counts continuing to improve. transfer to med/surg floor. 04/22: Continue working with PT. Platelets increasing. Will restart prophylactic Lovenox tomorrow if continued rise. 04/21: Pt extubated. On 2L NC. Will continue to monitor. Continue Abx. Pt will need extensive physical conditioning before she will be a candidate for more chemotherapy. 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 discussed patient's treatment up to this point and poor prognosis. discussed the terminal nature of her condition. patient wishes to remain full code and wants to proceed with trach. aggressive care to continue. family members questions answered. 04/19: remains intubated. prognosis poor. will call and speak with Yessenia, sister and set up a time to meet with palliative care. UPDATE: I spoke with Yessenia, the patient's sister and healthcare surrogate. will meet with her tomorrow at 10AM. Patient's daughter and other family members will be present. 04/16 was extubated yesterday. now reintubated after just 2 hrs. Had emesis. ? aspirated. Had Large BM per RN. Poor prognosis. Recommend hospice. 04/15: patient now extubated but having vomiting. will wait for PS to improve before resuming chemotherapy 04/14: Pt having low tidal volumes. No CPAP trials today. Palliative care consulted. She will not be a candidate for future chemo unless acute issues/ performance status significantly improves. 04/13: Pt did not tolerate CPAP trials today. Per RN last only 10 minutes. No chemo today. Continue IV Abx, steroids. 04/12: On Cefepime + solu-medrol. CPAP trials today. unable to resume chemo until current issues resolved 04/08/17: Continue supportive care with IV Abx, steroids. -- s/p C2 w/ carboplatin and etoposide on 04/05/17. Assessment 51 y/o female with history of small cell lung cancer admitted with COPD exacerbation. Attending Statement pt is extubated, sitting on chair. Wants to go home. transfer to floor. Ok to d/c from oncology standpoint. d/w RNThe exam, history, and the medical decision-making described in the above note were completed with the assistance of the mid-level provider. I reviewed and agree with the findings presented. I attest that I had a [id number] encounter with the patient on the same day, and personally performed and documented my assessment and findings in the medical record. Problem Qualifiers (1) SCLC (small cell lung carcinoma): Qualified Code: C34.90 - SCLC (small cell lung carcinoma), unspecified laterality Margo Wan April 23, 2017 12:17 Alyssa Martinez MD April 23, 2017 21:01
--- NOTE | 2017-04-23 12:29 | HHI.HCPN ---
Reason for visit a. To assist with evaluation and management of symptoms including: shortness of breath, anxiety, pain b. To assist medical decision maker(s) with: better understanding of current medical conditions; weighing benefits/burdens of medical treatment options; making medical treatment decisions. . (Freda Nathan) Subjective/Interval History . Ms. Hook is a 51 year old female with stage IV small cell lung cancer who was admitted to [facility] on 04/06/2017 for management of acute COPD exacerbation. She has a past medical history is significant for COPD (on supplemental oxygen and nebulizers at home), anxiety disorder, atrial fibrillation and hypertension. Ms. Hook was diagnosed with SCLC with extensive liver metastasis in 01/2017 and began palliative chemotherapy in 2016. She tolerated her first round of chemotherapy but was hospitalized on day after starting her 2nd round on 04/05/17. Patient was difficult to wean from the mechanical vent and required reintubation x 2 but was successfully extubated on 04/20/17. Follow-up for symptom management, clarification of medical treatment goals. Patient is awake and alert, sitting in bed side chair. Currently tolerating 3L oxygen via nasal cannula with oxygen saturation at 99%. Patient continues to whisper when talking, however her shortness of breath appears to have decreased since yesterday. Patient denies shortness of breath. Patient denies pain on exam, denies recent history of pain.. PRN Bybee and IV Morphine are available for pain but has not been administered in the past week. Afebrile. Patient has completed courses of cefepime and azithromycin. Sputum culture on 04/18/17 - S.Maltophilia; Zosyn was discontinued and the patient was started on Bactrim. Follow-up chest x-ray on 04/19/17 showing no acute cardiopulmonary disease. ID consult pending. 04/23/2017 lab work: =WBC: 3.7, hemoglobin 8.3, hematocrit 25.0, platelets 84, neutrophils 85.0% =Sodium: 140, potassium 4.2, chloride 101, carbon dioxide 32.0, glucose 151, calcium 8.9 =BUN: 16, creatinine 0.47, GFR 140 Patient with a history of chronic anxiety disorder. She reports ongoing sadness /depression and anxiety.She was told yesterday that her sister (Parul) last Wednesday on 04/17/17 which of course contributed to the patients distress. She is verbalizing frustration that she is not getting stronger while hospitalized and is threatening to leave AMA stating she can take oral antibiotics and do rehab at home. Benefits vs. burdens of this decision was discussed as the patient's goals remain aggressive and her performance status will need to improve before resuming chemotherapy. The patient certainly appears to have good insight and judgment about her medical conditions, however from a medical perspective leaving AMA is not in the patient's best interest. Current orders for lorazepam 0.5mg IV q8 hours PRN for anxiety; patient has received 2 dose in the past 24 hours. Psychiatry was consulted for further recommendations. Discussed with Dr. Shay who will be evaluating patient later today. . (Freda Nathan) Advance Directives Health Care Surrogate: Copy in medical record (Freda Nathan) Advance Directive Specifics Date completed: 04/16/2017 . Health Care Surrogate(s): Patient's sister, Yessenia Prasad, is designated as the health care surrogate decision maker. . Documented care wishes: No documented care wishes are available. . (Freda Nathan) Objective Vital Signs Date Time Temp Pulse Resp B/P Pulse Ox O2 Delivery O2 Flow Rate FiO2 04/23/17 10:31 109 04/23/17 10:00 118 04/23/17 09:00 116 04/23/17 08:00 109 04/23/17 08:00 109 04/23/17 08:00 109 28 97/70 96 04/23/17 07:00 99 Nasal Cannula 3.00 04/23/17 06:00 84 04/23/17 04:00 97.6 85 22 100/61 100 04/23/17 04:00 85 04/23/17 03:00 86 27 97/52 100 04/23/17 02:00 90 28 104/63 99 04/23/17 02:00 90 04/23/17 01:00 93 29 107/62 99 04/23/17 00:00 98.0 94 27 104/57 97 04/23/17 00:00 94 04/22/17 23:00 94 30 107/71 99 04/22/17 22:00 92 04/22/17 22:00 92 33 99/54 95 04/22/17 21:00 93 3 98/55 100 04/22/17 20:05 113 04/22/17 20:05 113 39 127/77 68 04/22/17 20:00 122 04/22/17 20:00 97.9 122 37 91 04/22/17 19:37 100 Nasal Cannula 3.00 04/22/17 19:00 101 34 100 04/22/17 19:00 101 04/22/17 19:00 100 Nasal Cannula 3.00 37 04/22/17 18:00 106 04/22/17 18:00 106 33 100 04/22/17 17:47 107 18 119/66 82 04/22/17 17:47 107 04/22/17 16:00 106 56 100 04/22/17 16:00 106 04/22/17 16:00 106 04/22/17 14:00 104 04/22/17 14:00 104 04/22/17 14:00 104 04/22/17 14:00 104 28 100 04/22/17 13:05 119 04/22/17 13:05 119 04/22/17 13:05 119 04/22/17 13:05 119 37 134/76 100 04/22/17 13:05 119 04/22/17 13:05 119 37 134/76 100 04/22/17 12:00 110 04/22/17 12:00 110 27 118/67 100 04/22/17 12:00 110 04/22/17 12:00 110 04/22/17 12:00 110 04/22/17 12:00 110 27 118/67 100 Intake & Output 04/23/17 04/23/17 07:00 19:00 Intake Total 480 ml Balance 480 ml Intake Oral 480 ml # Voids 4 # Bowel Movements 0 . Physical Exam CONSTITUTIONAL/GENERAL: This is a frail middle aged woman who appears ill, in no acute distress at this time. TUBES/LINES/DRAINS: [id number]-[id number] accessed, nasal cannula, , PIV 2 SKIN: No jaundice, rashes, or lesions. Ecchymoses on upper and lower extremities bilaterally. No wounds seen anteriorly. Skin temperature appropriate. Not diaphoretic. HEAD: Atraumatic. Normocephalic. EYES: Pupils equal and round and reactive. No scleral icterus. No injection or drainage. Fundi not examined. ENT: Nose without bleeding or purulent drainage NECK: Trachea midline. Supple, nontender. No palpable thyroid enlargement or nodularity. CARDIOVASCULAR: Intermittently tachycardic; regular rhythm without murmurs, gallops, or rubs. No JVD. Peripheral pulses symmetric. RESPIRATORY/CHEST: Tolerating 3L oxygen via nasal cannula, diminished air exchange throughout. GASTROINTESTINAL: Abdomen firm, nontender. Bowel sounds present. GENITOURINARY: Without palpable bladder distension. MUSCULOSKELETAL: Extremities without clubbing, cyanosis or edema. + Muscle atrophy. LYMPHATICS: No palpable cervical or supraclavicular adenopathy. NEUROLOGICAL: Awake and alert; able to participate in conversation appropriately ; follows commands. PSYCHIATRIC: Patient is appropriately tearful when discussing her family. . (Freda Nathan) Diagnostic Tests Laboratory Laboratory Tests Test 04/20/17 04/20/17 04/21/17 04/22/17 13:00 16:16 04:54 05:46 Blood Gas Puncture Site RT RADIAL Blood Gas Patient Temperature 98.6 Blood Gas HCO3 32 mmol/L (22-26) Blood Gas Base Excess 7.8 mmol/L (-2-2) Blood Gas Oxygen Saturation 95 % (90-100) Arterial Blood pH 7.47 (7.380-7.420) Arterial Blood Partial 44 mmHg (38-42) Pressure CO2 Arterial Blood Partial 103 mmHg Pressure O2 (61-120) Arterial Blood Oxygen Content 11.4 Vol % (12.0-20.0) Arterial Blood 1.9 % (0-4) Carboxyhemoglobin Arterial Blood Methemoglobin 1.0 % (0-2) Blood Gas Hemoglobin 8.4 G/DL (12.0-16.0) Oxygen Delivery Device VENTILATOR Blood Gas Ventilator Setting CPAP 5/10PS Blood Gas Inspired Oxygen 30 % Stool C. difficile Toxin (PCR) NEGATIVE (NEGATIVE) Stl C. difficile Toxin PRESUMPTIVE Epiderm 027 NEGATIVE (NEGATIVE) White Blood Count 3.0 TH/MM3 2.6 TH/MM3 (4.0-11.0) (4.0-11.0) Red Blood Count 2.67 MIL/MM3 2.81 MIL/MM3 (4.00-5.30) (4.00-5.30) Hemoglobin 7.7 GM/DL 8.0 GM/DL (11.6-15.3) (11.6-15.3) Hematocrit 23.2 % 24.4 % (35.0-46.0) (35.0-46.0) Mean Corpuscular Volume 87.1 FL 86.8 FL (80.0-100.0) (80.0-100.0) Mean Corpuscular Hemoglobin 29.0 PG 28.6 PG (27.0-34.0) (27.0-34.0) Mean Corpuscular Hemoglobin 33.3 % 32.9 % Concent (32.0-36.0) (32.0-36.0) Red Cell Distribution Width 18.9 % 18.8 % (11.6-17.2) (11.6-17.2) Platelet Count 33 TH/MM3 55 TH/MM3 (150-450) (150-450) Mean Platelet Volume 9.2 FL 9.7 FL (7.0-11.0) (7.0-11.0) Neutrophils (%) (Auto) 85.7 % 84.0 % (16.0-70.0) (16.0-70.0) Lymphocytes (%) (Auto) 10.2 % 11.9 % (9.0-44.0) (9.0-44.0) Monocytes (%) (Auto) 4.0 % (0.0-8.0) 4.0 % (0.0-8.0) Eosinophils (%) (Auto) 0.0 % (0.0-4.0) 0.0 % (0.0-4.0) Basophils (%) (Auto) 0.1 % (0.0-2.0) 0.1 % (0.0-2.0) Neutrophils # (Auto) 2.6 TH/MM3 2.1 TH/MM3 (1.8-7.7) (1.8-7.7) Lymphocytes # (Auto) 0.3 TH/MM3 0.3 TH/MM3 (1.0-4.8) (1.0-4.8) Monocytes # (Auto) 0.1 TH/MM3 0.1 TH/MM3 (0-0.9) (0-0.9) Eosinophils # (Auto) 0.0 TH/MM3 0.0 TH/MM3 (0-0.4) (0-0.4) Basophils # (Auto) 0.0 TH/MM3 0.0 TH/MM3 (0-0.2) (0-0.2) CBC Comment DIFF FINAL AUTO DIFF Differential Comment AUTO DIFF CONFIRMED Sodium Level 142 MEQ/L 140 MEQ/L (136-145) (136-145) Potassium Level 4.4 MEQ/L 3.9 MEQ/L (3.5-5.1) (3.5-5.1) Chloride Level 104 MEQ/L 99 MEQ/L (98-107) (98-107) Carbon Dioxide Level 32.2 MEQ/L 34.0 MEQ/L (21.0-32.0) (21.0-32.0) Anion Gap 6 MEQ/L (5-15) 7 MEQ/L (5-15) Blood Urea Nitrogen 15 MG/DL (7-18) 15 MG/DL (7-18) Creatinine 0.30 MG/DL 0.46 MG/DL (0.50-1.00) (0.50-1.00) Estimat Glomerular Filtration 235 ML/MIN 143 ML/MIN Rate (>89) (>89) Random Glucose 141 MG/DL 161 MG/DL (74-106) (74-106) Calcium Level 8.9 MG/DL 8.9 MG/DL (8.5-10.1) (8.5-10.1) Phosphorus Level 3.8 MG/DL (2.5-4.9) Magnesium Level 2.2 MG/DL (1.5-2.5) Total Bilirubin 0.5 MG/DL (0.2-1.0) Aspartate Amino Transf 11 U/L (15-37) (AST/SGOT) Alanine Aminotransferase 38 U/L (10-53) (ALT/SGPT) Alkaline Phosphatase 50 U/L (45-117) Total Protein 5.5 GM/DL (6.4-8.2) Albumin 2.4 GM/DL (3.4-5.0) Platelet Estimate LOW (NORMAL) Platelet Morphology Comment NORMAL (NORMAL) Ovalocytes 1+ (NORMAL) Test 04/23/17 06:22 White Blood Count 3.7 TH/MM3 (4.0-11.0) Red Blood Count 2.87 MIL/MM3 (4.00-5.30) Hemoglobin 8.3 GM/DL (11.6-15.3) Hematocrit 25.0 % (35.0-46.0) Mean Corpuscular Volume 87.1 FL (80.0-100.0) Mean Corpuscular Hemoglobin 28.9 PG (27.0-34.0) Mean Corpuscular Hemoglobin 33.2 % Concent (32.0-36.0) Red Cell Distribution Width 18.8 % (11.6-17.2) Platelet Count 84 TH/MM3 (150-450) Mean Platelet Volume 8.7 FL (7.0-11.0) Neutrophils (%) (Auto) 85.0 % (16.0-70.0) Lymphocytes (%) (Auto) 9.8 % (9.0-44.0) Monocytes (%) (Auto) 5.0 % (0.0-8.0) Eosinophils (%) (Auto) 0.0 % (0.0-4.0) Basophils (%) (Auto) 0.2 % (0.0-2.0) Neutrophils # (Auto) 3.1 TH/MM3 (1.8-7.7) Lymphocytes # (Auto) 0.4 TH/MM3 (1.0-4.8) Monocytes # (Auto) 0.2 TH/MM3 (0-0.9) Eosinophils # (Auto) 0.0 TH/MM3 (0-0.4) Basophils # (Auto) 0.0 TH/MM3 (0-0.2) CBC Comment AUTO DIFF Differential Comment AUTO DIFF CONFIRMED Platelet Estimate LOW (NORMAL) Platelet Morphology Comment NORMAL (NORMAL) Ovalocytes 1+ (NORMAL) Sodium Level 140 MEQ/L (136-145) Potassium Level 4.2 MEQ/L (3.5-5.1) Chloride Level 101 MEQ/L (98-107) Carbon Dioxide Level 32.0 MEQ/L (21.0-32.0) Anion Gap 7 MEQ/L (5-15) Blood Urea Nitrogen 16 MG/DL (7-18) Creatinine 0.47 MG/DL (0.50-1.00) Estimat Glomerular Filtration 140 ML/MIN Rate (>89) Random Glucose 151 MG/DL (74-106) Calcium Level 8.9 MG/DL (8.5-10.1) . (Freda Nathan) Result Diagram: 04/23/17 0622 04/23/17 0622 Procedures Extubated on 04/20/17; currently tolerating 2-3L oxygen via nasal cannula with oxygen saturations at 100%. Follow-up chest x-ray on 04/17/17 showing no acute pulmonary disease . (Freda Nathan) Assessment and Plan Disease Oriented Problem List: (1) Chronic obstructive pulmonary disease (2) SCLC (small cell lung carcinoma) (3) Atrial fibrillation (4) Anxiety (5) Hypertension (6) Metastases to the liver Symptom Scale: (1) Anxiety Comment: (2) Shortness of breath Comment: . (3) Pain Comment: Pertinent Non-Medical Issues Psychosocial: Patient is originally from [facility]. She has 2 sisters and one brother with whom she is very close, all live locally. Patient's passed with you years ago. The patient's daughter, Gabby, states they had not been together in 15 years but he was the love of her mother's life. She states her mother's health declined after his . She has 4 adult children (Vesta, Elva, Gabby and Wolf) between the ages of 23 and 31 years of age. Spiritual: Yarsani allison Legal: Per [place] statutes, in the absence of written advanced directives healthcare proxy decision-making falls to the majority of the patient's for adult children. In reviewing notes, the patient previously verbalized that she wanted her "sister" to act in the role of the health care surrogate decision maker. However, the sister should she was referring to was not specified and the legal document was not completed. Ethical issues impacting care: No known ethical issues impacting care at this time . Important Contacts Yessenia Prasad, sister: [phone] Parul Fonseca, sister: [phone] Vestapamela Hook, daughter: [phone] Gabbyana Rogers, daughter: [phone] Elva Hook, daughter: [phone] Wolf Nemesiomagdielkaleect, son: No phone available . Prognosis Patient is a 51-year-old female with SCLC and extensive metastatic disease to the liver in January,. Patient also as advanced COPD. She was started on palliative chemotherapy in 02/2017; patient tolerated chemotherapy well and it appeared to be effective. Currently hospitalized with an acute COPD exacerbation. Patient remains sedated and intubated on mechanical ventilator, unable to tolerate CPAP trials. Goals remain aggressive, however patient's overall prognosis is poor. . Code Status: Full Code Plan * FULL CODE * Decision-making: HCS forms completed 04/16/17, designating the patient's sister (Yessenia Prasad) as the healthcare surrogate decision maker. Readdressed , patient again confirms designation of her sister (Yessenia) as the healthcare surrogate decision maker. * Discussed completion of a living will and the patient's five wishes. Patient was open to discussing further. Palliative Care FIRST PRESS OPERATOR, Savannah Lockett, to follow up later today. * Goals: Goals remain aggressive. * Managementanxiety: Patient denies anxiety on exam, but admits to chronic anxiety disorder which is exacerbated by recent cancer diagnosis and current hospitalization. Current orders for lorazepam 0.5mg IV q8 hours PRN for anxiety ; patient has received 2 dose in the past 24 hours. * Symptom managementdyspnea: Patient was successfully extubated on 04/20/17; currently tolerating 2-3L oxygen via nasal cannula with saturations of 99%. F/U chest x-ray on 04/19/17 showing no acute cardiopulmonary disease. Patient completed cefepime course on 04/18/17. Sputum culture on 04/18 - S.Maltophilia; Zosyn was discontinued and the patient was started on Bactrim. * Symptom managementpain: No nonverbal signs are symptoms of pain are observed on exam or reported by nursing staff. Possible causes of pain may include SMLC stents of metastatic disease to the liver, dyspnea, invasive lines, immobility, etc. Patient denies pain on exam; denies history of pain. PRN Bybee and IV Morphine are available for pain but has not been administered in > 7 days. * Physical, occupational and speech therapy are following. Patient reporting appetite is improving slowly. Total protein 5.5, albumin 2.4. Per oncology, patient will need extensive physical conditioning before she will be a candidate for further chemotherapy. Recommendations for SNF placement upon discharge. * Dr. Martinez states patient's overall prognosis is poor, making recommendations for hospice * Patient with a history of chronic anxiety disorder. She reports ongoing sadness/depression and anxiety.She was told yesterday that her sister (Parul) last Wednesday on 04/17/17 which of course contributed to the patients distress. She is verbalizing frustration that she is not getting stronger while hospitalized and is threatening to leave AMA stating she can take oral antibiotics and do rehab at home. Benefits vs. burdens of this decision was discussed as the patient's goals remain aggressive and her performance status will need to improve before resuming chemotherapy. The patient certainly appears to have good insight and judgment about her medical conditions, however from a medical perspective leaving AMA is not in the patient's best interest. Current orders for lorazepam 0.5mg IV q8 hours PRN for anxiety; patient has received 2 dose in the past 24 hours. * Discussed with patient's nurse (Sybil) and Dr. Shay. * Palliative care will continue to follow this patient throughout her hospitalization to establish trust, assist with symptom management and clarification of medical treatment goals. . (Freda Nathan) Attestation To help prompt me to consider important information that might be impacting today's encounter and assessment, information from prior notes written by myself or my colleagues may have been "brought forward" into today's note. My signature on this note, however, is an attestation that I personally performed the exam, history, and/or decision-making noted today, and, unless otherwise indicated, the interactions with patient, family, and staff as well as the review of records all occurred today. I also attest that the listed assessment and stated plan reflect my best clinical judgment today based on the combination of historical information, prior notes, and today's exam/ interactions. When time spent is documented, it refers only to time spent today by the signer, or if indicated, combined time spent today by collaborating physician/nurse practitioner. . (Freda Nathan) Collaborating MD Comments . Chart reviewed. Case discussed with palliative care DROP HAMMER SETTER UP. Above DROP HAMMER SETTER UP note reviewed and I concur. . (Paco Dash MD) Freda Nathan April 23, 2017 12:29 Paco Dash MD April 27, 2017 16:44
[2017-04-23] MEDS: ENOXAPARIN SODIUM 40 MG/0.4 ML SYRINGE SQ SCH (13:10)
--- NOTE | 2017-04-23 14:59 | HHI.PR ---
Subjective Interval History awake alert and oriented remains on 3 L nC transferred to floor sitting in chair still with hoarse voice awake alert oriented no family at bed side Vitals/Results Intake & Output 04/22/17 04/22/17 04/23/17 15:00 23:00 07:00 Intake Total 680 ml 240 ml 240 ml Output Total 600 ml Balance 80 ml 240 ml 240 ml Intake Oral 680 ml 240 ml 240 ml Output Urine Total 600 ml # Voids 2 2 # Bowel Movements 0 0 Vital Signs Vital Signs Date Time Temp Pulse Resp B/P Pulse Ox O2 Delivery O2 Flow Rate FiO2 04/23/17 12:00 118 04/23/17 12:00 118 38 117/69 98 04/23/17 12:00 118 38 117/69 98 04/23/17 11:00 107 27 120/74 100 04/23/17 11:00 107 27 120/74 100 04/23/17 11:00 107 04/23/17 10:31 109 20 119/70 100 04/23/17 10:31 109 04/23/17 10:31 109 20 119/70 100 04/23/17 10:31 109 04/23/17 10:00 118 35 100 04/23/17 10:00 118 04/23/17 10:00 118 35 100 04/23/17 10:00 118 04/23/17 09:00 116 04/23/17 09:00 116 31 122/73 100 04/23/17 09:00 116 04/23/17 09:00 116 31 122/73 100 04/23/17 08:00 109 04/23/17 08:00 109 04/23/17 08:00 109 04/23/17 08:00 109 28 97/70 96 04/23/17 08:00 109 28 97/70 96 04/23/17 08:00 109 28 97/70 96 04/23/17 07:00 99 Nasal Cannula 3.00 04/23/17 06:00 84 04/23/17 04:00 97.6 85 22 100/61 100 04/23/17 04:00 85 04/23/17 03:00 86 27 97/52 100 04/23/17 02:00 90 28 104/63 99 04/23/17 02:00 90 04/23/17 01:00 93 29 107/62 99 04/23/17 00:00 98.0 94 27 104/57 97 04/23/17 00:00 94 04/22/17 23:00 94 30 107/71 99 04/22/17 22:00 92 04/22/17 22:00 92 33 99/54 95 04/22/17 21:00 93 3 98/55 100 04/22/17 20:05 113 04/22/17 20:05 113 39 127/77 68 04/22/17 20:00 122 04/22/17 20:00 97.9 122 37 91 04/22/17 19:37 100 Nasal Cannula 3.00 04/22/17 19:00 101 34 100 04/22/17 19:00 101 04/22/17 19:00 100 Nasal Cannula 3.00 37 04/22/17 18:00 106 04/22/17 18:00 106 33 100 04/22/17 17:47 107 18 119/66 82 04/22/17 17:47 107 04/22/17 16:00 106 56 100 04/22/17 16:00 106 04/22/17 16:00 106 CBC/BMP: 04/23/17 0622 04/23/17 0622 Lab Results Laboratory Tests Test 04/23/17 06:22 White Blood Count 3.7 TH/MM3 Red Blood Count 2.87 MIL/MM3 Hemoglobin 8.3 GM/DL Hematocrit 25.0 % Mean Corpuscular Volume 87.1 FL Mean Corpuscular Hemoglobin 28.9 PG Mean Corpuscular Hemoglobin 33.2 % Concent Red Cell Distribution Width 18.8 % Platelet Count 84 TH/MM3 Mean Platelet Volume 8.7 FL Neutrophils (%) (Auto) 85.0 % Lymphocytes (%) (Auto) 9.8 % Monocytes (%) (Auto) 5.0 % Eosinophils (%) (Auto) 0.0 % Basophils (%) (Auto) 0.2 % Neutrophils # (Auto) 3.1 TH/MM3 Lymphocytes # (Auto) 0.4 TH/MM3 Monocytes # (Auto) 0.2 TH/MM3 Eosinophils # (Auto) 0.0 TH/MM3 Basophils # (Auto) 0.0 TH/MM3 CBC Comment AUTO DIFF Differential Comment AUTO DIFF CONFIRMED Platelet Estimate LOW Platelet Morphology Comment NORMAL Ovalocytes 1+ Sodium Level 140 MEQ/L Potassium Level 4.2 MEQ/L Chloride Level 101 MEQ/L Carbon Dioxide Level 32.0 MEQ/L Anion Gap 7 MEQ/L Blood Urea Nitrogen 16 MG/DL Creatinine 0.47 MG/DL Estimat Glomerular Filtration 140 ML/MIN Rate Random Glucose 151 MG/DL Calcium Level 8.9 MG/DL Physical Exam General General Appearance: Well Developed, Well Nourished, No Acute Distress, Comfortable Eyes Eye Exam: Pupils Equal, Pupils Reactive Ears & Nose Ears & Nose Exam: Nasal Mucosa Lawler Throat Throat Exam: Oral Mucosa Lawler & Moist Neck Neck Exam: Neck Supple, Trachea Midline Pulmonary Resp Exam: No Distress, Decreased Bases Cardiology CV Exam: Good Perfusion, Tachycardia Gastrointestinal/Abdomen GI Exam: Soft, Non-Tender, Bowel Sounds Present, Distended Genitourinary Exam: Clear Urine Musculoskeletal MS Exam: Joints Intact Integumentary Skin Exam: Warm, Dry Extremeties Extremities Exam: Pedal Pulses Palpable, Trace Edema Assessment/Plan Problem List: (1) Hypercapnic respiratory failure (2) Acute exacerbation of chronic obstructive pulmonary disease (COPD) (3) SCLC (small cell lung carcinoma) Plan: with liver mets (4) Hyperglycemia (5) Depression (6) A-fib (7) Hypertension Assessment/Plan s/p extubation Duonebs IV steroids; methylprednisolone decreased to q12 h NIPPV prn during day and scheduled at night hoarse voice likely from prolonged and recurrent intubation cultures negative oncology following, input appreciated CT PE protocol reviewed reduction in size of mediastinal and hilar adenopathy. An reduction in size of left hepatic lobe metastasis. Severe emphysematous changes. no chemotherapy plans at this time, hospice recommended; patient wants full aggressive care Leukopenia, monitor WBC Thrombocytopenia, HIT neg, platelets improved today Bowel regimen on po diet Anemia post hydration will monitor hx afib, continue Cardizem remains SR/ST SCD DVT prophylaxis Pepcid for GI prophylaxis Palliative care following, goals remains aggressive. Input appreciated CM for dc planning, PT eval Full code Labs reviewed likely transfer to [facility] in am discussed with patient D/W RN discussed with case management : Tee aptino Problem Qualifiers (1) Hypercapnic respiratory failure: Qualified Code: J96.02 - Acute respiratory failure with hypercapnia (2) SCLC (small cell lung carcinoma): Qualified Code: C34.90 - SCLC (small cell lung carcinoma), unspecified laterality (3) Depression: Qualified Code: F32.9 - Depression, unspecified depression type (4) A-fib: Qualified Code: I48.91 - Atrial fibrillation, unspecified type (5) Hypertension: Qualified Code: I10 - Essential hypertension Kaylyn Gregory MD April 23, 2017 14:59
[2017-04-23] MEDS ORDERED: MIRTAZAPINE 15 MG TAB PO ONE (15:45)
--- NOTE | 2017-04-23 15:51 | PD.CONS ---
Provisional Diagnosis Admission Date April 07, 2017 at 00:38 [place]. Adjustment disorder with depressed mood and anxiety History of Present Illness Service Psychiatry Consult Requested By Primary Care Physician Gisselle Hammond M.D. HPI The patient is a 51-year-old woman, psychiatric history of depression and anxiety, she has been Zoloft in the past, prescribed by PCP, no previous psychiatric hospitalizations, previous suicidal attempts, medical history of stage IV small cell lung cancer who presented to [facility] ED via EMS on 04/06/2017 and was subsequently admitted with acute COPD exacerbation. She has a past medical history is significant for COPD, atrial fibrillation and hypertension. She was diagnosed with SCLC with extensive liver metastasis in 2016, she had palliative chemotherapy apparently with good results. She is being followed by palliative care and patient seems to be a good candidate for hospice. On psychiatric evaluation today patient is found sitting in her chair , she is calm, cooperative and pleasant, tearful and big part of the interview. She is states that her cancer condition is a concern for her, but what really depressed her is the fact that her sister and she has been unable to help her family. She says that she feels guilty and she feels as failing to her sister. Patient reports hopelessness, helplessness, decreased self-esteem, low appetite, problems sleeping at night, but she denies suicidal ideation, she denies homicidal ideation, she denies visual and auditory hallucinations. Patient says that suicidality does not fit in her moral and family values. Patient says that she has been comfortable in the ICU, she denies pain and distress at this moment. Does report periodic anxiety, mostly related with SOB and pain. Patient is fully oriented 3, with no attention deficit or gross cognitive impairment present. Patient denies the use of illicit drugs and alcohol. Review of Systems Constitutional: DENIES: Diaphoretic episodes, Fatigue, Fever, Weight gain, Weight loss, Chills, Dizziness, Change in appetite, Night Sweats Endocrine: DENIES: Abnorml menstrual pattern, Heat/cold intolerance, Polydipsia , Polyuria, Polyphagia Eyes: DENIES: Blurred vision, Diplopia, Eye inflammation, Eye pain, Vision loss , Photosensitivity, Double Vision Ears, nose, mouth, throat: DENIES: Tinnitus, Hearing loss, Vertigo, Nasal discharge, Oral lesions, Throat pain, Hoarseness, Ear Pain, Running Nose, Epistaxis, Sinus Pain, Toothache, Odynophagia Respiratory: COMPLAINS OF: Sputum production, Shortness of breath, DENIES: Apneas, Cough, Snoring, Wheezing, Hemoptysis Cardiovascular: DENIES: Chest pain, Palpitations, Syncope, Dyspnea on Exertion , PND, Lower Extremity Edema, Orthopnea, Claudication Gastrointestinal: DENIES: Abdominal pain, Black stools, Bloody stools, Constipation, Diarrhea, Nausea, Vomiting, Difficulty Swallowing, Anorexia Genitourinary: DENIES: Abnormal vaginal bleeding, Dysmenorrhea, Dyspareunia, Sexual dysfunction, Urinary frequency, Urinary incontinence, Urgency, Hematuria , Dysuria, Nocturia, Vaginal discharge Musculoskeletal: DENIES: Joint pain, Muscle aches, Stiffness, Joint Swelling, Back pain, Neck pain Integumentary: DENIES: Abnormal pigmentation, Pruritus, Rash, Nail changes, Breast masses, Breast skin changes, Nipple discharge Hematologic/lymphatic: DENIES: Bruising, Lymphadenopathy Immunologic/allergic: DENIES: Eczema, Urticaria Neurologic: DENIES: Abnormal gait, Headache, Localized weakness, Paresthesias, Seizures, Speech Problems, Tremor, Poor Balance Psychiatric: COMPLAINS OF: Anxiety, Depression, DENIES: Confusion, Mood changes, Hallucinations, Agitation, Suicidal Ideation, Homicidal Ideation, Delusions Past Family Social History Coded Allergies: Valium (Verified Allergy, Severe, HIVES, 04/07/17) *MDRO Multi-Drug Resistant Organism (Verified Adverse Reaction, Unknown, ) MRSA PCR Screen POSITIVE - 03/19/2016 Active Scripts Atorvastatin (Lipitor)20 Mg Tab20 Mg PO HS #30 TAB Ref 0 Prov:Sal Loza MD 02/13/17 Ipratropium HFA 12.9 GM Inh (Atrovent HFA 12.9 GM Inh)17 Mcg/Act Aer2 Puff INH QID #1 INHALER Ref 0 Prov:Sal Loza MD 02/13/17 Tiotropium Inh (Spiriva Handihaler)18 Mcg Cap18 Mcg INH DAILY #30 CAP Ref 0 1 capsule = 18 mcg Prov:Sal Loza MD 02/13/17 Diltiazem (Cardizem)60 Mg Tab60 Mg PO QID #120 TAB Prov:Sal Loza MD 02/13/17 Current Medications Medications (Trade) Dose Ordered Sig/Rossana Route Start Time Stop Time Status Last Admin (NS Flush) 2 ml BID IV FLUSH 04/07/17 09:00 04/23/17 08:35 (NS Flush) 2 ml UNSCH PRN IV FLUSH 04/07/17 01:00 04/15/17 13:12 (Tylenol) 650 mg Q4H PRN PO 04/07/17 01:00 (Zofran Inj) 4 mg Q6H PRN IV 04/07/17 01:00 04/20/17 17:21 (Tums Chew) 1,000 mg TID PRN CHEW 04/07/17 01:00 04/19/17 13:17 (Pepcid) 20 mg BID PO 04/07/17 09:00 Hold 04/18/17 09:14 Miscellaneous Information Patient in critical care unit? Ass... Q361D .XX 04/07/17 02:30 04/07/17 02:30 (Mag-Ox) 800 mg UNSCH PRN PO 04/08/17 10:45 (Glycerin Adult Supp) 2 gm BID PRN RECTAL 04/14/17 21:00 04/16/17 00:29 (Nitroglycerin 2% Oint) 2 inch Q6H PRN TOPICAL 04/15/17 13:00 04/15/17 13:50 (Apresoline Inj) 10 mg Q1H PRN IV PUSH 04/15/17 13:00 04/15/17 13:12 (Trandate Inj) 10 mg Q1H PRN IV PUSH 04/15/17 13:00 04/15/17 13:49 ([place] 5-325 Mg) 1 tab Q6H PRN PO 04/15/17 13:00 (Morphine Inj) 2 mg Q3H PRN IV PUSH 04/15/17 13:00 04/15/17 13:01 (Compazine Inj) 5 mg Q6H PRN IV PUSH 04/15/17 13:00 04/15/17 13:11 (Reglan Inj) 5 mg Q8HR IV PUSH 04/15/17 14:00 04/23/17 13:10 (Peridex 0.12% Liq) 15 ml BID@08,20 MT 04/15/17 20:00 04/20/17 09:50 (Brethine Inj) 1 mg UNSCH PRN SQ 04/15/17 16:15 (Prevacid Odt) 30 mg DAILY NG 04/19/17 09:00 04/23/17 08:35 (Miralax) 17 gm DAILY PRN PO 04/19/17 12:45 (Senna Liq) 8.8 mg DAILY PRN PO 04/19/17 12:45 (Cardizem) 30 mg QID PO 04/19/17 18:00 04/23/17 13:09 (D50w (Vial) Inj) 50 ml UNSCH PRN IV 04/20/17 09:15 (Glucagon Inj) 1 mg UNSCH PRN OTHER 04/20/17 09:15 (NovoLIN R SUPPLEMENTAL SCALE) 1 Q6HR SQ 04/20/17 12:00 04/23/17 04:51 (Free Water) 250 ml Q12HR G-TUBE 04/20/17 12:15 04/20/17 12:15 (Spiriva Inh) 18 mcg DAILY INH 04/20/17 14:00 04/23/17 08:35 (Symbicort 160-4.5 Inh) 2 puff Q12HR INH 04/20/17 14:00 04/23/17 08:35 (Melatonin) 5 mg HS PO 04/20/17 21:00 04/22/17 19:56 (Ativan Inj) 0.5 mg Q8H PRN IV PUSH 04/20/17 20:45 04/22/17 22:43 (Lipitor) 20 mg HS PO 04/21/17 21:00 04/22/17 19:56 (SoluMEDROL INJ) 40 mg Q12HR IV PUSH 04/22/17 21:00 04/23/17 08:35 (Lovenox Inj) 40 mg Q24H SQ 04/23/17 13:00 04/23/17 13:10 Family History Patient denies psychiatric family history Social History Patient was born and raised in [place], she lives in [place] with her daughter, she is single, unemployed, her highest level of education is ninth grade Patient's Strengths (min. 2) Family support Physical Exam Vital Signs Vital Signs Date Time Temp Pulse Resp B/P Pulse Ox O2 Delivery O2 Flow Rate FiO2 04/23/17 12:00 118 04/23/17 12:00 38 117/69 98 04/23/17 07:00 Nasal Cannula 3.00 04/23/17 04:00 97.6 04/22/17 19:00 37 I/O 04/22/17 04/22/17 04/23/17 08:00 16:00 00:00 Intake Total 102 ml 680 ml 240 ml Output Total 450 ml 600 ml Balance -348 ml 80 ml 240 ml Lab Results Lab Results Laboratory Tests Test 04/23/17 06:22 White Blood Count 3.7 TH/MM3 Red Blood Count 2.87 MIL/MM3 Hemoglobin 8.3 GM/DL Hematocrit 25.0 % Mean Corpuscular Volume 87.1 FL Mean Corpuscular Hemoglobin 28.9 PG Mean Corpuscular Hemoglobin 33.2 % Concent Red Cell Distribution Width 18.8 % Platelet Count 84 TH/MM3 Mean Platelet Volume 8.7 FL Neutrophils (%) (Auto) 85.0 % Lymphocytes (%) (Auto) 9.8 % Monocytes (%) (Auto) 5.0 % Eosinophils (%) (Auto) 0.0 % Basophils (%) (Auto) 0.2 % Neutrophils # (Auto) 3.1 TH/MM3 Lymphocytes # (Auto) 0.4 TH/MM3 Monocytes # (Auto) 0.2 TH/MM3 Eosinophils # (Auto) 0.0 TH/MM3 Basophils # (Auto) 0.0 TH/MM3 CBC Comment AUTO DIFF Differential Comment AUTO DIFF CONFIRMED Platelet Estimate LOW Platelet Morphology Comment NORMAL Ovalocytes 1+ Sodium Level 140 MEQ/L Potassium Level 4.2 MEQ/L Chloride Level 101 MEQ/L Carbon Dioxide Level 32.0 MEQ/L Anion Gap 7 MEQ/L Blood Urea Nitrogen 16 MG/DL Creatinine 0.47 MG/DL Estimat Glomerular Filtration 140 ML/MIN Rate Random Glucose 151 MG/DL Calcium Level 8.9 MG/DL Mental Status Examination Appearance woman, with significant hair loss, very pale, older than his stated age, she is calm, cooperative tearful Speech: Unremarkable Orientation: x3 Memory: Unremarkable Thought Process: Logical Thought Content: Unremarkable Hallucination Type: None Suicidal Ideation: No Previous Suicide Attempts: No Homicidal Ideation: No Previous Homicide Attempts: No Judgment: WNL Mood: Sad Assessment & Plan Problem List: (1) Adjustment disorder with mixed anxiety and depressed mood Assessment & Plan: Patient presents moderate to severe symptomatology of depression, no suicidal ideation. He also reports mild symptoms of anxiety. We 'll start Remeron 15 mg to help with depression, with sleep, and to improve appetite. Also will start clonazepam 0.5 mg twice a day for her anxiety. We' ll follow-up. ICD Code: F43.23 Assessment & Plan Estimated LOS: Crispin Shay MD April 23, 2017 15:50
[2017-04-23] MEDS: ATORVASTATIN 20 MG TAB PO SCH (21:30)
[2017-04-23] MEDS: clonazePAM 0.5 MG TAB PO SCH (21:30)
[2017-04-23] MEDS: MELATONIN 5 MG TAB PO SCH (21:30)
[2017-04-24] VITALS (7 sets, daily range): BP systolic 105–125; BP diastolic 58–67; PULSE 82–107; RESP 16–20; TEMP 96–96.8; O2SAT 99–100
[2017-04-24] MEDS: INSULIN NovoLIN REGULAR SUPPLEMENTAL SCALE SQ SCH ×3 (00:21→11:16)
[2017-04-24] MEDS: RESP: ALBUTEROL 2.5 MG/IPRATROPIUM 0.5 MG NEB (SCH) NEB ×4 (03:12→12:06)
[2017-04-24] MEDS: METOCLOPRAMIDE HCL 10 MG/2 ML VIAL IV PUSH SCH ×2 (05:48→13:17)
[2017-04-24] MEDS: CHLORHEXIDINE 0.12% (ORAL KIT) 15 ML CUP MT SCH (08:00)
[2017-04-24] MEDS: RESP: BUDESONIDE 0.5 MG/2 ML NEB NEB SCH (08:45)
--- NOTE | 2017-04-24 08:51 | PD.ONC.PN ---
Subjective Subjective Remarks Afebrile overnight. Patient sitting on bedpan when I entered the room, so I helped her off. She says she feels ok about going to rehab today. She feels tired and weak. Objective Data Date Time Temp Pulse Resp B/P Pulse Ox O2 Delivery O2 Flow Rate FiO2 04/24/17 08:46 99 Nasal Cannula 3.00 04/24/17 04:00 96.8 88 16 105/67 100 04/24/17 00:00 96.8 88 16 109/62 100 04/23/17 21:30 Nasal Cannula 3.00 37 04/23/17 20:51 99 Nasal Cannula 3.00 04/23/17 20:00 96.9 103 20 128/74 99 04/23/17 17:25 99 Nasal Cannula 3.00 04/23/17 16:00 97.6 111 18 128/72 99 04/23/17 14:15 97.0 113 18 124/73 99 04/23/17 12:00 118 04/23/17 12:00 118 38 117/69 98 04/23/17 12:00 118 38 117/69 98 04/23/17 11:00 107 27 120/74 100 04/23/17 11:00 107 27 120/74 100 04/23/17 11:00 107 04/23/17 10:31 109 20 119/70 100 04/23/17 10:31 109 04/23/17 10:31 109 20 119/70 100 04/23/17 10:31 109 04/23/17 10:00 118 35 100 04/23/17 10:00 118 04/23/17 10:00 118 35 100 04/23/17 10:00 118 04/23/17 09:00 116 04/23/17 09:00 116 31 122/73 100 04/23/17 09:00 116 04/23/17 09:00 116 31 122/73 100 04/24/17 04/24/17 04/24/17 07:00 15:00 23:00 Intake Total 480 ml Balance 480 ml Result Diagram: 04/23/1762104/23/17621 Administered Medications Medications (Trade) Dose Ordered Sig/Rossana Route PRN Reason Start Time Stop Time Status Last Admin Dose Admin Sodium Chloride (NS Flush) 2 ml BID IV FLUSH 04/07/17 09:00 04/23/17 21:29 Sodium Chloride (NS Flush) 2 ml UNSCH PRN IV FLUSH FLUSH AFTER USING IV ACCESS 04/07/17 01:00 04/15/17 13:12 Ondansetron HCl (Zofran Inj) 4 mg Q6H PRN IV NAUSEA 04/07/17 01:00 04/20/17 17:21 Calcium Carbonate (Tums Chew) 1,000 mg TID PRN CHEW DYSPEPSIA 04/07/17 01:00 04/19/17 13:17 Famotidine (Pepcid) 20 mg BID PO 04/07/17 09:00 Hold 04/18/17 09:14 Miscellaneous Information Patient in critical care unit? Ass... Q361D .XX 04/07/17 02:30 04/07/17 02:30 Glycerin (Glycerin Adult Supp) 2 gm BID PRN RECTAL CONSTIPATION 04/14/17 21:00 04/16/17 00:29 Nitroglycerin (Nitroglycerin 2% Oint) 2 inch Q6H PRN TOPICAL SBP>160, DBP>90 04/15/17 13:00 04/15/17 13:50 Hydralazine HCl (Apresoline Inj) 10 mg Q1H PRN IV PUSH SBP>160, DBP>90 04/15/17 13:00 04/15/17 13:12 Labetalol HCl (Trandate Inj) 10 mg Q1H PRN IV PUSH SBP>160, DBP>90, HR>65 04/15/17 13:00 04/15/17 13:49 Morphine Sulfate (Morphine Inj) 2 mg Q3H PRN IV PUSH PAIN SCALE 6 TO 10 04/15/17 13:00 04/15/17 13:01 Prochlorperazine Edisylate (Compazine Inj) 5 mg Q6H PRN IV PUSH nausea 04/15/17 13:00 04/15/17 13:11 Metoclopramide HCl (Reglan Inj) 5 mg Q8HR IV PUSH 04/15/17 14:00 04/24/17 05:48 Chlorhexidine Gluconate (Peridex 0.12% Liq) 15 ml BID@08,20 MT 04/15/17 20:00 04/20/17 09:50 Lansoprazole (Prevacid Odt) 30 mg DAILY NG 04/19/17 09:00 04/23/17 08:35 Diltiazem HCl (Cardizem) 30 mg QID PO 04/19/17 18:00 04/23/17 21:30 Insulin Human Regular (NovoLIN R SUPPLEMENTAL SCALE) 1 Q6HR SQ 04/20/17 12:00 04/24/17 05:54 Water (Free Water) 250 ml Q12HR G-TUBE 04/20/17 12:15 04/20/17 12:15 Tiotropium [place] (Spiriva Inh) 18 mcg DAILY INH 04/20/17 14:00 04/23/17 08:35 Budesonide/ Formoterol Fumarate (Symbicort 160-4.5 Inh) 2 puff Q12HR INH 04/20/17 14:00 04/23/17 21:30 Melatonin (Melatonin) 5 mg HS PO 04/20/17 21:00 04/23/17 21:30 Lorazepam (Ativan Inj) 0.5 mg Q8H PRN IV PUSH BIPAP TOLERANCE/ANXIETY 04/20/17 20:45 04/22/17 22:43 Atorvastatin Calcium (Lipitor) 20 mg HS PO 04/21/17 21:00 04/23/17 21:30 Methylprednisolone Sodium Succinate (SoluMEDROL INJ) 40 mg Q12HR IV PUSH 04/22/17 21:00 04/23/17 21:29 Enoxaparin Sodium (Lovenox Inj) 40 mg Q24H SQ 04/23/17 13:00 04/23/17 13:10 Clonazepam (KlonoPIN) 0.5 mg Q12HR PO 04/23/17 21:00 04/23/17 21:30 Objective Remarks GENERAL: Middle aged female, lying in bed on bedpan. SKIN: Warm and dry. HEAD: Normocephalic. EYES: No injection or drainage. NECK: Supple, trachea midline. CARDIOVASCULAR: +S1/S2, tachy RESPIRATORY: diminished at bases. scattered rhonchi GASTROINTESTINAL: Abdomen soft, non-tender, nondistended. EXTREMITIES: No cyanosis MUSCULOSKELETAL: Adequate muscle tone. NEUROLOGICAL: awake and alert, normal speech. Assessment/Plan Problem List: (1) SCLC (small cell lung carcinoma) Status: Chronic Plan: 04/24: continue Lovenox prophylaxis agree with d/c to rehab 04/23: resume Lovenox prophylaxis. counts continuing to improve. transfer to med/ surg floor. 04/22: Continue working with PT. Platelets increasing. Will restart prophylactic Lovenox tomorrow if continued rise. 04/21: Pt extubated. On 2L NC. Will continue to monitor. Continue Abx. Pt will need extensive physical conditioning before she will be a candidate for more chemotherapy. 04/20: family meeting held along with palliative care [employer]'s and patient's healthcare surrogate Yessenia and patient's children as well as patient. discussed patient's treatment up to this point and poor prognosis. discussed the terminal nature of her condition. patient wishes to remain full code and wants to proceed with trach. aggressive care to continue. family members questions answered. 04/19: remains intubated. prognosis poor. will call and speak with Yessenia, sister and set up a time to meet with palliative care. UPDATE: I spoke with Yessenia, the patient's sister and healthcare surrogate. will meet with her tomorrow at 10AM. Patient's daughter and other family members will be present. 04/16 was extubated yesterday. now reintubated after just 2 hrs. Had emesis. ? aspirated. Had Large BM per RN. Poor prognosis. Recommend hospice. 04/15: patient now extubated but having vomiting. will wait for PS to improve before resuming chemotherapy 04/14: Pt having low tidal volumes. No CPAP trials today. Palliative care consulted. She will not be a candidate for future chemo unless acute issues/ performance status significantly improves. 04/13: Pt did not tolerate CPAP trials today. Per RN last only 10 minutes. No chemo today. Continue IV Abx, steroids. 04/12: On Cefepime + solu-medrol. CPAP trials today. unable to resume chemo until current issues resolved 04/08/17: Continue supportive care with IV Abx, steroids. -- s/p C2 w/ carboplatin and etoposide on 04/05/17. Assessment 51 y/o female with history of small cell lung cancer admitted with COPD exacerbation. Plan 1. continue Lovenox prophylaxis 2. ok to go to rehab 3. monitor counts Attending Statement The exam, history, and the medical decision-making described in the above note were completed with the assistance of the mid-level provider. I reviewed and agree with the findings presented. I attest that I had a [id number] encounter with the patient on the same day, and personally performed and documented my assessment and findings in the medical record Problem Qualifiers (1) SCLC (small cell lung carcinoma): Qualified Code: C34.90 - SCLC (small cell lung carcinoma), unspecified laterality Margo Wan April 24, 2017 08:51 Sanya Gutierrez MD May 20, 2017 23:18
[2017-04-24] MEDS: FREE WATER G-TUBE SCH (09:00)
[2017-04-24] MEDS: clonazePAM 0.5 MG TAB PO SCH (09:30)
[2017-04-24] MEDS: LANSOPRAZOLE SOLUTAB 30 MG TAB NG SCH (09:30)
[2017-04-24] MEDS: DILTIAZEM HCL 30 MG TAB PO SCH ×2 (09:30→13:17)
[2017-04-24] MEDS: methylPREDNISolone SOD SUCC 40 MG/1 ML VIAL IV PUSH SCH (09:30)
[2017-04-24] MEDS: SODIUM CHLORIDE 0.9% FLUSH 10 ML FLUSH IV FLUSH SCH (09:30)
[2017-04-24] MEDS: TIOTROPIUM BROMIDE 18 MCG INH INH SCH (09:31)
[2017-04-24] MEDS: BUDESONIDE-FORMOTEROL 160/4.5 MCG INHALER INH SCH (09:31)
[2017-04-24] MEDS: ENOXAPARIN SODIUM 40 MG/0.4 ML SYRINGE SQ SCH (13:17)
[2017-04-24 14:08] LABS: AUTOMATED NEUTROPHIL # 4.2 TH/MM3 (1.8-7.7); BASOPHIL % 0.2 % (0.0-2.0); HEMATOCRIT 31.9 % (35.0-46.0); HEMO FLAGS DIFF FINAL; LYMPH % 5.7 % (9.0-44.0); LYMPHOCYTE # 0.3 TH/MM3 (1.0-4.8); MEAN CELL VOLUME 88.3 FL (80.0-100.0); MEAN CORPUSCULAR HEMOGLOBIN 28.2 PG (27.0-34.0); NEUT % 91.1 % (16.0-70.0); PLATELET COUNT 145 TH/MM3 (150-450); RED BLOOD COUNT 3.61 MIL/MM3 (4.00-5.30); RED CELL DISTRIBUTION WIDTH 19.3 % (11.6-17.2); WHITE BLOOD COUNT 4.6 TH/MM3 (4.0-11.0)
--- NOTE | 2017-04-24 14:09 | HHI.PR ---
Subjective Remarks more alert sitting up on side of bed. debility, but Afebrile mild tachycardia (Cailin Quan) Objective Objective Results - Vital Signs Date Time Temp Pulse Resp B/P Pulse Ox O2 Delivery O2 Flow Rate FiO2 04/24/17 13:15 107 117/58 04/24/17 12:00 96.0 105 19 107/67 100 04/24/17 09:30 Nasal Cannula 2.00 04/24/17 08:46 99 Nasal Cannula 3.00 04/24/17 07:00 96.7 82 20 125/64 100 04/24/17 04:00 96.8 88 16 105/67 100 04/24/17 00:00 96.8 88 16 109/62 100 04/23/17 21:30 Nasal Cannula 3.00 37 04/23/17 20:51 99 Nasal Cannula 3.00 04/23/17 20:00 96.9 103 20 128/74 99 04/23/17 17:25 99 Nasal Cannula 3.00 04/23/17 16:00 97.6 111 18 128/72 99 04/23/17 14:15 97.0 113 18 124/73 99 I/O 04/23/17 04/23/17 04/23/17 04/24/17 04/24/17 04/24/17 07:00 15:00 23:00 07:00 15:00 23:00 Intake Total 240 ml 640 ml 480 ml 480 ml 180 ml Output Total 900 ml Balance 240 ml -260 ml 480 ml 480 ml 180 ml Intake Oral 240 ml 640 ml 480 ml 480 ml 180 ml Output Urine Total 900 ml # Voids 2 2 3 # Bowel Movements 0 0 (Cailin Quan) Result Diagram: 04/23/1762104/23/1722 ROS General: Fatigue, Weakness, Other (10 point ROS done positives noted other systems negative or unremarkable) Pulmonary: Cough (mild occasional), SOB (mild exertional) GI: BM (bowel regimen) (Cailin Quan) Physical Exam Physical Exam PHYSICAL EXAMINATION GENERAL: This is a thin female who appears to be in no acute distress. She is alert and awake, HEAD: Normocephalic without any lesion or mass noted. Facial features appear symmetric. Alopecia OROPHARYNGEAL: Oropharynx without erythema or edema. NECK: Supple. No nuchal rigidity or lymphadenopathy. Trachea midline without deviation. CARDIAC: Regular rhythm, tachycardic rate, S1 and S2 are heard. LUNGS: Mild diminished to auscultation bilaterally. No wheezes or rhonchi ABDOMEN: Soft, nontender, no organomegaly or masses. Bowel sounds .EXTREMITIES: No edema. Pulses equal bilateral. NEUROLOGICAL: Patient mood and affect appropriate. No focal deficit SKIN:Warm and moist (Cailin Quan) A/P Assessment and Plan (1) Hypercapnic respiratory failure (2) Acute exacerbation of chronic obstructive pulmonary disease (COPD) (3) SCLC (small cell lung carcinoma) with liver mets (4) Hyperglycemia (5) Depression (6) A-fib (7) Hypertension 8, sinus tachycardia s/p extubation Duonebs IV steroids; weaning 30mg BID NIPPV prn during day and scheduled at night hoarse voice likely from prolonged and recurrent intubation, soft but mild improvement oncology following, input appreciated CT PE protocol reviewed reduction in size of mediastinal and hilar adenopathy. An reduction in size of left hepatic lobe metastasis. Severe emphysematous changes. no chemotherapy plans at this time, hospice recommended; patient wants full aggressive care Leukopenia, monitor WBC Debility, patient would benefit from acute rehabilitation, but needs to plan to stay through the plan of care. She has agreed. Bowel regimen on po diet Anemia post hydration will monitor, probable secondary to her chronic disease hx afib, continue Cardizem and increase dose today remains SR/ST, will increase Cardizem dose to 180 SR daily SCD DVT prophylaxis Pepcid for GI prophylaxis Palliative care following, goals remains aggressive. Input appreciated CM for dc planning, planned for today Full code Labs reviewed discussed with patient D/W RN discussed with case management : Dionne D/W Dr. Gregory, sitting on her behalf Problem Qualifiers (1) Hypercapnic respiratory failure: Qualified Code: J96.02 - Acute respiratory failure with hypercapnia (2) SCLC (small cell lung carcinoma): Qualified Code: C34.90 - SCLC (small cell lung carcinoma), unspecified laterality (3) Depression: Qualified Code: F32.9 - Depression, unspecified depression type (4) A-fib: Qualified Code: I48.91 - Atrial fibrillation, unspecified type (5) Hypertension: Qualified Code: I10 - Essential hypertension (Cailin Quan) Assessment and Plan patient seen and examined in better spirits today Cardizem switched to Long acting and odse increased patient agreeeable to go to [facility] rehab ok to d/c to [facility] plan of care discussed with patient and CAILIN Canas (Kaylyn Gregory MD) Cailin Quan April 24, 2017 14:09 Kaylyn Gregory MD April 24, 2017 14:37
[2017-04-24] MEDS ORDERED: DILTIAZEM-CD 180 MG CAP ER PO SCH (14:15)
[2017-04-24] MEDS ORDERED: PRED20 PO (14:42)
[2017-04-24] MEDS ORDERED: PREV30TA3 NG (14:42)
[2017-04-24] MEDS ORDERED: CARD180C5 PO (14:42)
[2017-04-24] MEDS ORDERED: SYMB160A INH (14:42)
[2017-04-24] MEDS ORDERED: GNP5TAB6 PO (14:42)
[2017-04-24] MEDS ORDERED: methylPREDNISolone SOD SUCC 40 MG/1 ML VIAL IV PUSH SCH (21:00)
[2017-04-24] MEDS ORDERED: predniSONE 10 MG TAB PO SCH (21:00)
[2017-04-29] MEDS ORDERED: SYMB160A INH (12:58)
[2017-04-29] MEDS ORDERED: DOCU1CAP39 PO (12:58)
[2017-04-29] MEDS ORDERED: CLON.5 PO (12:58)
[2017-04-29] MEDS ORDERED: MIRTA15 PO (12:58)
[2017-04-29] MEDS ORDERED: IPRA17I INH (12:58)
[2017-04-29] MEDS ORDERED: METO25TA3 PO (12:58)
[2017-04-29] MEDS ORDERED: PRED20 PO (12:58)
[2017-04-29] MEDS ORDERED: PANT40TA3 PO (12:58)
[2017-04-29] MEDS ORDERED: LIPI20TA PO (12:58)
[2017-04-29] MEDS ORDERED: GNP5TAB6 PO (12:58)
[2017-04-29] MEDS ORDERED: CARD180C5 PO (12:58)
[2017-04-29] MEDS ORDERED: SPIRCAP INH (12:58)
--- NOTE | 2017-05-14 19:05 | HHI.DS ---
Discharge Summary Admission Date April 07, 2017 at 00:38 Discharge Date: April 24, 2017 Admitting Diagnosis acute exacerbation COPD. History of lung cancer. (1) Hypercapnic respiratory failure (2) Acute exacerbation of chronic obstructive pulmonary disease (COPD) (3) History of lung cancer (4) Intractable vomiting with nausea (5) Steroid-induced hyperglycemia (6) Dyslipidemia (7) A-fib (8) Anxiety (9) Sinus tachycardia (10) Weakness (11) Impaired mobility and activities of daily living Imaging Last Impressions Chest X-Ray 04/19/17 0600 Signed Impressions: Service Date/Time: Wednesday, April 19, 2017 03:51 - CONCLUSION: No acute cardiopulmonary disease. Therese Javier MD Cholangiopancreatography MRI 04/16/17 0000 Signed Impressions: Service Date/Time: Sunday, April 16, 2017 09:35 - CONCLUSION: 1. Unremarkable examination of the biliary tree. No evidence of ductal dilatation. 2. Cholelithiasis 3. Indeterminate lesions in liver as described above. Malignancy is not excluded. Administration of contrast would be helpful to further delineate these abnormalities Son Bryson MD Abdomen/Pelvis CT 04/15/17 0000 Signed Impressions: Service Date/Time: March 17:45 - CONCLUSION: 1. Biliary dilatation as described above. 2. Mass is again identified laterally in the right lobe. Central mass seen previously is poorly demonstrated on today's exam because of phase of the contrast. 3. Gallstones around a contracted gallbladder. Fred Vieyra MD FACR Abdomen X-Ray 04/15/17 0000 Signed Impressions: Service Date/Time: March 13:34 - CONCLUSION: Normal examination. Tomasz New MD CT Angiography 04/07/17 0031 Signed Impressions: Service Date/Time: Friday, April 07, 2017 01:13 - CONCLUSION: 1. No pulmonary emboli. 2. Reduction in size of the mediastinal and hilar adenopathy. 3. Reduction in size of the left hepatic lobe metastasis. 4. Severe emphysematous changes. Roberth Lockett Jr., MD Hospital Course 51-year-old female with past medical history of small cell lung cancer with liver metastases diagnosed in January 2017, tobacco abuse. She had been on palliative chemotherapy since March 08. She presented to [facility] emergency department on 04/07/17 with shortness of breath and has been treated for COPD exacerbation with nebs, Solu-Medrol, cefepime and azithromycin. She was placed on BiPAP and initially had some response. However she refused BiPAP and has becoming progressively lethargic through the course of the evening. An ABG was obtained and she has acute hypercapnic respiratory failure with pH 7.12/PaCO2 116/PA O2 of 101. Her RN discussed code status with her earlier and patient stated "intubate me if I need it". Further history was limited due to patient's altered mental status secondary to hypercapnic respiratory failure. CTA 04/07 was negative for pulmonary embolism. Showed reduction in hilar and mediastinal lymphadenopathy Patient was transferred to the intensive care unit, pulmonology, intensivists were consulted. Patient was tried on CPAP, it was unsuccessful. She was very agitated. She had to go home Precedex drip. Patient eventually require intubation. Patient remained in the intensive care unit for a prolonged stay. She remained agitated and require continuous sedation. She was put on 2 feedings. Oncology continue to follow patient and communicate with family. Palliative care was consulted to follow patient. Weaning trials were started, patient was extubated and then had to be reintubated. She had intractable nausea vomiting, had a CT of the abdomen on that revealed ductal dilatation, contracted gallbladder with stone. LFTs slightly elevated. Another attempt at extubation was done on 04/17/2017. She only lasted 15 more minutes before intubation had to be done because of distress. She indicated she couldn't catch her breath. Vocal cords were normal. Platelets were noted trending downwards, Lovenox was held. Hit panel was sent. It was negative. Infectious disease follow patient, managed antibiotics and follow cultures. Surgery was consulted also for possible trach placement. Psychiatry was also consulted to assist with depression and severe anxiety, medications were started. Heart rate was uncontrolled, possibly A. fib with RVR. Put on Cardizem. Heart rate stabilizes. Palliative care continue to follow patient, they assisted with designation of health care surrogate. Oncology continue to follow patient, recommended hospice care. Patient was finally extubated on 04/20. She did well. Case management was consulted for rehabilitation placement. Patient stabilized, heart rate was improved. She was very weak, physical therapy was ordered. She was put on appropriate diet as indicated per speech therapy. Patient was discharged to [facility] in stable condition. Pt Condition on Discharge: Stable Discharge Disposition: Rehab Inpatient Discharge Instructions DIET: Follow Instructions for: As Tolerated, No Restrictions Additional Diet Instructions: toothless Activities you can perform: Regular-No Restrictions Discontinued Medications: Diltiazem (Cardizem) 60 Mg Tab 60 MG PO QID Regulate Heart Beat #120 TAB Kristy Andrews May 14, 2017 19:05
== END 2017-04-24 15:28 | DRG 207 ==
LOC: NEPC 23:27 → NEDA 04-07 00:38 → HIMN 04-07 02:00 → HOCA 04-23 14:07
PROVIDERS: ADMIT Specialist; ATTEND Specialist
PROC: 5A1955Z Respiratory Ventilation, Greater than 96 Consecutive Hours (ICD-10-PCS; principal; 2017-04-08)
PROC: 0BH17EZ Insertion of Endotracheal Airway into Trachea, Via Natural or Artificial Opening (ICD-10-PCS; 2017-04-08)
PROC: 0BH17EZ Insertion of Endotracheal Airway into Trachea, Via Natural or Artificial Opening (ICD-10-PCS; 2017-04-15)
PROC: 0BH17EZ Insertion of Endotracheal Airway into Trachea, Via Natural or Artificial Opening (ICD-10-PCS; 2017-04-17)
DX: J44.1 Chronic obstructive pulmonary disease with (acute) exacerbation (principal); J69.0 Pneumonitis due to inhalation of food and vomit; D61.810 Antineoplastic chemotherapy induced pancytopenia; E87.0 Hyperosmolality and hypernatremia; N17.9 Acute kidney failure, unspecified; C78.7 Secondary malignant neoplasm of liver and intrahepatic bile duct; E87.2 Acidosis; E44.1 Mild protein-calorie malnutrition; J96.02 Acute respiratory failure with hypercapnia; C34.90 Malignant neoplasm of unspecified part of unspecified bronchus or lung; D89.9 Disorder involving the immune mechanism, unspecified; I48.91 Unspecified atrial fibrillation; I10 Essential (primary) hypertension; D64.89 Other specified anemias; R00.0 Tachycardia, unspecified; R73.9 Hyperglycemia, unspecified; E78.5 Hyperlipidemia, unspecified; K80.20 Calculus of gallbladder without cholecystitis without obstruction; L65.8 Other specified nonscarring hair loss; E86.0 Dehydration; T45.1X5A Adverse effect of antineoplastic and immunosuppressive drugs, initial encounter; F17.210 Nicotine dependence, cigarettes, uncomplicated; F43.23 Adjustment disorder with mixed anxiety and depressed mood; Z80.51 Family history of malignant neoplasm of kidney; Z99.81 Dependence on supplemental oxygen
CPT/HCPCS: 31500; 36600; 71010; 71275; 74000; 74177; 74181; 76377; 76937; 80048; 80053; 80076; 81001; 82150; 82272; 82550; 82805; 82948; 83605; 83690; 83735; 83880; 84100; 84484; 84702; 85007; 85025; 85027; 85384; 85610; 85730; 86022; 87040; 87070; 87077; 87086; 87186; 87205; 87493; 87641; 93005; 94002; 94003; 94150; 94640; 94664; 96367; 96368; 96372; 96374; 96375; 96413; 96417; G0463; J0360; J0456; J0692; J0780; J1100; J1120; J1170; J1626; J1642; J1650; J1815; J2060; J2212; J2270; J2370; J2405; J2543; J2765; J2920; J2930; J3010; J3410; J7030; J7040; J7050; J7060; J7613; J7626; J9045; J9181; Q9963; Q9967

== ENCOUNTER 2017-07-29 20:31 | Inpatient (IN) | payer MEDICARE, MEDICAID ==
[~2017-07-29] VITALS: Ht 170.2 cm; Wt 74.0 kg
[~2017-07-29 20:31] MED LIST changes: -AZIT250T3 PO; +CARD180C5 PO; +CLON.5 PO; -DILT60TA33 PO; +DOCU1CAP39 PO; +GNP5TAB6 PO; +IOHEXOL 350 MG/ML 10 ML VIAL (for RAD DIAG) IVCONTRAST ONE; +METO25TA3 PO; +MIRTA15 PO; +PANT40TA3 PO; -PRED10 PO; +PRED20 PO; +SYMB160A INH
[2017-07-29 20:35] VITALS: BP 183/112; PULSE 139; RESP 38; TEMP 98.1; O2SAT 98
--- NOTE | 2017-07-29 20:39 | PD ---
HPI Chief Complaint: Respiratory Distress Time Seen by Provider: 20:37 Travel History International Travel<30 days: No Contact w/Intl Traveler<30days: No Traveled to known affect area: No History of Present Illness HPI 51yo F with PMH of small cell lung cancer with liver mets, anxiety, afib, COPD, HTN presents to the ED with c/o sob for 2 days. As per EVAC, she was saturating in the 60s but responded after 3 nebulizer treatments and 125mg solumedrol. Pt had decreased breaths sounds bilaterally and after treatment has very small end expiratory wheezing on right. Pt is tired but AAOx3 and saturating at 98% on 3L NC here in the ED. Pt uses 2L NC at home. Her oncologist is Dr. Martinez. Denies any fever, chest pain, nausea, vomiting, abdominal pain, focal weakness or numbness. Pt is full code. Pt was admitted for COPD exacerbation and intubated for hypercapnic respiratory failure. PFSH Past Medical History Arthritis: No Asthma: No Autoimmune Disease: No Anxiety: Yes (LAST ANXIETY ATTACK WAS IN 2000.) Depression: No Heart Rhythm Problems: No Cancer: Yes (small cell lung cancer, liver) Cardiovascular Problems: Yes (HTN, tachycardia) High Cholesterol: No Chemotherapy: Yes Chest Pain: No Congestive Heart Failure: No COPD: Yes Cerebrovascular Accident: No Coronary Artery Disease: No Diabetes: No Diminished Hearing: No Endocrine: No GERD: No Genitourinary: Yes Hiatal Hernia: No Hypertension: Yes Immune Disorder: No Implanted Vascular Access Dvce: No Kidney Stones: Yes (AT AGE 15.) Musculoskeletal: No Neurologic: No Psychiatric: Yes Reproductive: No Respiratory: Yes (COPD) Immunizations Current: No Migraines: No Radiation Therapy: No Renal Failure: No Seizures: No Sickle Cell Disease: No Sleep Apnea: No Thyroid Disease: No Ulcer: No Menopausal: Yes : 9 Para: 4 Miscarriage: 5 Dilation and Curettage (D&C): Yes Tubal Ligation: Yes Past Surgical History Abdominal Surgery: No AICD: No Arteriovenous Shunt: No Cardiac Surgery: No Ear Surgery: No Endocrine Surgery: No Eye Surgery: No Genitourinary Surgery: No Gynecologic Surgery: Yes (TUBES TIED.) Insulin Pump: No Joint Replacement: No Oral Surgery: No Pacemaker: No Thoracic Surgery: Yes (port right chest) Other Surgery: Yes (HAND SURGERY ) Social History Alcohol Use: No Tobacco Use: Yes (1/2 PPD) Substance Use: No Allergies-Medications (Allergen,Severity, Reaction): Coded Allergies: diazepam (Unverified Allergy, Severe, HIVES, 07/29/17) Reported Meds & Prescriptions Reported Meds & Active Scripts Active Prednisone 20 Mg Tab 20 Mg PO BID 30 Days Pantoprazole (Pantoprazole Sodium) 40 Mg Tab 40 Mg PO DAILY 30 Days Mirtazapine 15 Mg Tab 15 Mg PO HS 30 Days Metoprolol Tartrate 25 Mg Tab 12.5 Mg PO Q12HR 30 Days Dok (Docusate Sodium) 100 Mg Cap 100 Mg PO BID 30 Days Klonopin (Clonazepam) 0.5 Mg Tab 0.5 Mg PO Q8HR Gnp Melatonin Maximum Str (Melatonin) 5 Mg Tab 5 Mg PO HS 30 Days Cardizem CD 24 HR (Diltiazem CD 24 HR) 180 Mg Caper 180 Mg PO DAILY 30 Days Symbicort Inh (Budesonide/Formoterol Fumarate) 160-4.5 Mcg/Act Aero 2 Puff INH Q12HR 30 Days Lipitor (Atorvastatin Calcium) 20 Mg Tab 20 Mg PO HS Atrovent HFA 12.9 GM Inh (Ipratropium [place]) 17 Mcg/Act Aer 2 Puff INH QID Spiriva Handihaler (Tiotropium Inh) 18 Mcg Cap 18 Mcg INH DAILY 1 capsule = 18 mcg Reported Megestrol (Megestrol Acetate) 40 Mg Tab 40 Mg PO QID Review of Systems Except as stated in HPI: all other systems reviewed are Neg Physical Exam Narrative GENERAL: 51yo F in moderate distress. SKIN: Focused skin assessment warm/dry. HEAD: Atraumatic. Normocephalic. EYES: Pupils equal and round. No scleral icterus. No injection or drainage. ENT: No nasal bleeding or discharge. Mucous membranes pink and moist. NECK: Trachea midline. No JVD. CARDIOVASCULAR: Regular rate and rhythm. No murmur appreciated. RESPIRATORY: + accessory muscle use. Decreased breath sounds bilaterally. Very mild end expiratory wheezing on right. GASTROINTESTINAL: Abdomen soft, non-tender, nondistended. MUSCULOSKELETAL: No obvious deformities. No clubbing. No cyanosis. +Lower ext edema. NEUROLOGICAL: Awake and response to questions. No obvious cranial nerve deficits. Motor grossly within normal limits. Normal speech. PSYCHIATRIC: Appropriate mood and affect; insight and judgment normal. Data Data Last Documented VS Vital Signs Date Time Temp Pulse Resp B/P (MAP) Pulse Ox O2 Delivery O2 Flow Rate FiO2 07/29/17 22:40 93 40 07/29/17 22:00 117 26 136/90 (105) BiPAP 07/29/17 20:44 3.00 07/29/17 20:35 98.1 Orders Orders Complete Blood Count With Diff (07/29/17 20:37) Basic Metabolic Panel (Bmp) (07/29/17 20:37) B-Type Natriuretic Peptide (07/29/17 20:37) Act Partial Throm Time (Ptt) (07/29/17 20:37) Prothrombin Time / Inr (Pt) (07/29/17 20:37) Magnesium (Mg) (07/29/17 20:37) Troponin I (07/29/17 20:37) Arterial Blood Gas (Abg) (07/29/17 20:37) Blood Culture (07/29/17 20:37) Iv Access Insert/Monitor (07/29/17 20:37) Ecg Monitoring (07/29/17 20:37) Oximetry (07/29/17 20:37) Oxygen Administration (07/29/17 20:37) Chest, Single Ap (07/29/17 20:37) Ct Pulmonary Angiogram (07/29/17 20:37) Sodium Chloride 0.9% Flush (Ns Flush) (07/29/17 20:45) Lactic Acid Sepsis Protocol (07/29/17 20:37) Sodium Chlor 0.9% 1000 Ml Inj (Ns 1000 M (07/29/17 20:45) Resp Bipap / Cpap Non Invas Vt (07/29/17 ) Arterial Blood Gas (Abg) (07/29/17 ) Electrocardiogram (07/29/17 20:31) Arterial Blood Gas (Abg) (07/29/17 ) Sodium Chlor 0.9% 1000 Ml Inj (Ns 1000 M (07/29/17 23:15) Ceftriaxone Inj (Rocephin Inj) (07/29/17 23:15) Azithromycin Inj (Zithromax Inj) (07/29/17 23:15) Admit Order (Ed Use Only) (07/29/17 23:30) Labs Laboratory Tests Test 07/29/17 20:30 07/29/17 20:50 07/29/17 21:00 07/29/17 21:19 Blood Gas Puncture Site LT RADIAL RT RADIAL Blood Gas Patient Temperature 98.6 98.6 Blood Gas HCO3 43 mmol/L 37 mmol/L Blood Gas Base Excess 15.0 mmol/L 9.8 mmol/L Blood Gas Oxygen Saturation 93 % 94 % Arterial Blood pH 7.26 7.28 Arterial Blood Partial Pressure CO2 98 mmHg 81 mmHg Arterial Blood Partial Pressure O2 102 mmHG 113 mmHG Arterial Blood Oxygen Content 20.9 Vol % 18.2 Vol % Arterial Blood Carboxyhemoglobin 3.4 % 3.3 % Arterial Blood Methemoglobin 0.8 % 0.7 % Blood Gas Hemoglobin 15.9 G/DL 13.7 G/DL Oxygen Delivery Device NASAL CANNULA BiPAP Blood Gas Liter Flow 3 L/M White Blood Count 12.4 TH/MM3 Red Blood Count 5.17 MIL/MM3 Hemoglobin 15.9 GM/DL Hematocrit 50.9 % Mean Corpuscular Volume 98.5 FL Mean Corpuscular Hemoglobin 30.8 PG Mean Corpuscular Hemoglobin Concent 31.2 % Red Cell Distribution Width 16.1 % Platelet Count 87 TH/MM3 Mean Platelet Volume 8.9 FL Neutrophils (%) (Auto) 88.0 % Lymphocytes (%) (Auto) 8.0 % Monocytes (%) (Auto) 3.4 % Eosinophils (%) (Auto) 0.0 % Basophils (%) (Auto) 0.6 % Neutrophils # (Auto) 10.9 TH/MM3 Lymphocytes # (Auto) 1.0 TH/MM3 Monocytes # (Auto) 0.4 TH/MM3 Eosinophils # (Auto) 0.0 TH/MM3 Basophils # (Auto) 0.1 TH/MM3 CBC Comment AUTO DIFF Differential Comment AUTO DIFF CONFIRMED Platelet Estimate LOW Platelet Morphology Comment NORMAL Ovalocytes 1+ Stomatocytes 1+ Lactic Acid Level 1.0 mmol/L B-Type Natriuretic Peptide 34 PG/ML Prothrombin Time 11.8 SEC Prothromb Time International Ratio 1.1 RATIO Activated Partial Thromboplast Time 29.4 SEC Blood Gas Ventilator Setting [id number] Blood Gas Inspired Oxygen 40 % Test 07/29/17 22:32 Blood Urea Nitrogen 28 MG/DL Creatinine 0.54 MG/DL Random Glucose 334 MG/DL Calcium Level 8.9 MG/DL Magnesium Level 2.2 MG/DL Sodium Level 142 MEQ/L Potassium Level 4.5 MEQ/L Chloride Level 100 MEQ/L Carbon Dioxide Level 36.8 MEQ/L Anion Gap 5 MEQ/L Estimat Glomerular Filtration Rate 119 ML/MIN Troponin I 0.04 NG/ML MDM Medical Decision Making Medical Screen Exam Complete: Yes Emergency Medical Condition: Yes Interpretation(s) EKG: Sinus tachycardia at 138bpm. Normal axis. No ST segment elevation or depression. Differential Diagnosis COPD exacerbation vs. CHF vs. Pneumonia vs. PE vs. metastatic lung disease vs. pleural effusion Narrative Course 51yo F with sob for 2 days. Pt is tachypneic and tachycardic at 138bpm. It is sinus tachycardia and will give NS IVF. ABG showed respiratory acidosis with pH 7.26 and hypercapnia and PCO2 of 98.3. Pt is AAOx3 so will try BIPAP first but if pt's condition deteriorates, will proceed to intubation because pt is full code. Pt reevaluated at bedside and is feeling better. Mental status is still good. Saturating at 100% on BIPAP FiO2 40%. Repeat ABG shows improvement of hypercapnia. pCO2 improved from 98 to 81. pH improved from 7.26 to 7.28. Labs reviewed, leukocytosis at 12.4. H/H elevated at 15.9/50.9. Lactic acid is normal at 1.0. BNP is 34. Pt given NS IVF x1, will add another and give empiric antibiotics. CXR negative but CT angio still pending. Given tachycardia, leukocytosis, will cover with antibiotics for CAP. Pt continues to improve on the BIPAP and is tolerating it. The third ABG showed pCO2 down to 78.3. Will continue to monitor closely. Discussed with Dr. Zuñiga and accepted to his service. CT angio showed no PE. Nonacute findings include severe emphysema and coronary artery calcifications. Critical Care Narrative Aggregate critical care time was 60 minutes. Time to perform other separately billable procedures was not included in the critical care time. My time did not include minutes spent treating any other patients simultaneously or on activities that did not directly contribute to the patient's treatment. The services I provided to this patient were to treat and/or prevent clinically significant deterioration that could result in: cardiovascular collapse or . I provided critical care services requiring my management, as noted below: Chart data review, documentation time, medication orders and management, vital sign assessments/reviewing monitor data, ordering and reviewing lab tests, ordering and interpreting/reviewing x-rays and diagnostic studies, care of the patient and discussion of the patient with the admitting physicians. Diagnosis Primary Impression: Hypercapnic respiratory failure Qualified Codes: J96.22 - Acute and chronic respiratory failure with hypercapnia Admitting Information Admitting Physician Requests: Admit Archana Tucker DO Jul 29, 2017 20:39
[2017-07-29 20:40] VITALS: O2SAT 98
[2017-07-29 20:44] VITALS: RESP 38; O2SAT 97
[2017-07-29] MEDS ORDERED: SODIUM CHLOR 0.9% 1000 ML INJ 1,000 ML IV ONE ×2 (20:45→23:15)
[2017-07-29] MEDS ORDERED: SODIUM CHLORIDE 0.9% FLUSH 10 ML FLUSH IVF PRN (20:45)
[2017-07-29 20:59] LABS: BLOOD GAS CARBOXYHEMOGLOBIN 3.4 % (0-4); BLOOD GAS HCO3 43 mmol/L (22-26); BLOOD GAS METHEMOGLOBIN 0.8 % (0-2); BLOOD GAS O2 HGB SATURATION 93 % (90-100); BLOOD GAS OXYGEN CONTENT 20.9 Vol % (12.0-20.0); BLOOD GAS PCO2 98 mmHg (38-42); BLOOD GAS PO2 102 mmHG (61-120); BLOOD GAS TOTAL HGB 15.9 G/DL (12.0-16.0); TEMP CORR TO 98.6
[2017-07-29 21:00] VITALS: BP 166/90; PULSE 128; RESP 28; O2SAT 98
[2017-07-29 21:00] LABS: CRITICAL VALUE YES; OXYGEN DEVICE NASAL CANNULA
[2017-07-29 21:01] LABS: DRAW SITE LT RADIAL; LITER FLOW 3 L/M; NUMBER OF ARTERIAL PUNCTURES 1; STAT YES; ULNAR PULSE PRESENT
[2017-07-29] MEDS ORDERED: MEGE40TA PO (21:19)
[2017-07-29 21:29] LABS: AUTOMATED NEUTROPHIL # 10.9 TH/MM3 (1.8-7.7); BASOPHIL # 0.1 TH/MM3 (0-0.2); BASOPHIL % 0.6 % (0.0-2.0); HEMATOCRIT 50.9 % (35.0-46.0); MEAN CELL VOLUME 98.5 FL (80.0-100.0); MEAN CORPUSCULAR HEMOGLOBIN 30.8 PG (27.0-34.0); MEAN CORPUSCULAR HGB CONC 31.2 % (32.0-36.0); MONO % 3.4 % (0.0-8.0); PLATELET COUNT 87 TH/MM3 (150-450); RED BLOOD COUNT 5.17 MIL/MM3 (4.00-5.30); RED CELL DISTRIBUTION WIDTH 16.1 % (11.6-17.2); WHITE BLOOD COUNT 12.4 TH/MM3 (4.0-11.0)
[2017-07-29 21:30] LABS: HEMO FLAGS AUTO DIFF
[2017-07-29 21:35] LABS: APTT (PATIENT) 29.4 SEC (24.3-30.1); INTERNATIONAL NORMALIZED RATIO 1.1 RATIO; PROTHROMBIN TIME - PATIENT 11.8 SEC (9.8-11.6)
[2017-07-29 22:00] VITALS: BP 136/90; PULSE 117; RESP 26; O2SAT 96
--- NOTE | 2017-07-29 22:10 | RADRPT ---
EXAM DATE/TIME: 07/29/2017 21:05 [facility] COMPARISON: CHEST SINGLE AP, April 27, 2017, 9:33. INDICATIONS : Short of breath MEDICAL HISTORY : Chronic obstructive pulmonary disease. Hypertension Carcinoma, lung. SURGICAL HISTORY : Tubal ligation. ENCOUNTER: Initial ACUITY: 3 days PAIN SCORE: 0/10 LOCATION: chest FINDINGS: The heart size is normal. There is a CT compatible [id number] in place from the right internal jug ular approach. Lungs are grossly clear. No effusion is seen. CONCLUSION: No acute disease. Abhinav Giles MD on July 29, 2017 at 22:08 Board Certified Radiologist. This report was verified electronically.
[2017-07-29 22:14] LABS: OVALOCYTES 1+ (NORMAL); PLATELET ESTIMATE SMEAR LOW (NORMAL); PLATELET MORPHOLOGY NORMAL (NORMAL); SCAN/DIFF AUTO DIFF CONFIRMED; STOMATOCYTES 1+ (NORMAL)
[2017-07-29 22:30] LABS: BLOOD GAS BASE EXCESS 9.8 mmol/L (-2-2); BLOOD GAS CARBOXYHEMOGLOBIN 3.3 % (0-4); BLOOD GAS HCO3 37 mmol/L (22-26); BLOOD GAS METHEMOGLOBIN 0.7 % (0-2); BLOOD GAS O2 HGB SATURATION 94 % (90-100); BLOOD GAS OXYGEN CONTENT 18.2 Vol % (12.0-20.0); BLOOD GAS PCO2 81 mmHg (38-42); BLOOD GAS PO2 113 mmHG (61-120); BLOOD GAS TOTAL HGB 13.7 G/DL (12.0-16.0); TEMP CORR TO 98.6
[2017-07-29 22:31] LABS: CRITICAL VALUE YES; DRAW SITE RT RADIAL; FIO2 40 %; NUMBER OF ARTERIAL PUNCTURES 1; OXYGEN DEVICE BiPAP; STAT YES; ULNAR PULSE PRESENT; VENT SETTINGS IPAP14/EPAP6
[2017-07-29 22:40] VITALS: O2SAT 93
[2017-07-29 23:10] LABS: BICARBONATE 36.8 MEQ/L (21.0-32.0); MAGNESIUM 2.2 MG/DL (1.5-2.5); POTASSIUM 4.5 MEQ/L (3.5-5.1)
[2017-07-29] MEDS ORDERED: cefTRIAXone INJ 1,000 MG in SODIUM CHLORIDE 0.9% INJ 100 ML IV ONE (23:15)
[2017-07-29] MEDS ORDERED: AZITHROMYCIN INJ 500 MG in SODIUM CHLOR 0.9% 250 ML INJ 250 ML IV ONE (23:15)
[2017-07-30] VITALS (37 sets, daily range): BP systolic 115–150; BP diastolic 74–86; PULSE 91–124; RESP 9–44; TEMP 97.8–98.8; O2SAT 81–100
[2017-07-30 00:02] LABS: BLOOD GAS BASE EXCESS 8.7 mmol/L (-2-2); BLOOD GAS CARBOXYHEMOGLOBIN 2.9 % (0-4); BLOOD GAS HCO3 35 mmol/L (22-26); BLOOD GAS METHEMOGLOBIN 0.7 % (0-2); BLOOD GAS O2 HGB SATURATION 93 % (90-100); BLOOD GAS PCO2 78 mmHg (38-42); BLOOD GAS PO2 88 mmHG (61-120); BLOOD GAS TOTAL HGB 12.2 G/DL (12.0-16.0); TEMP CORR TO 98.6
[2017-07-30 00:03] LABS: CRITICAL VALUE YES; OXYGEN DEVICE BiPAP
[2017-07-30 00:04] LABS: DRAW SITE RT RADIAL; FIO2 40 %; NUMBER OF ARTERIAL PUNCTURES 1; STAT NO; ULNAR PULSE PRESENT; VENT SETTINGS IPAP14/EPAP6
--- NOTE | 2017-07-30 00:19 | RADRPT ---
EXAM DATE/TIME: 07/29/2017 23:57 [facility] COMPARISON: CT PULMONARY ANGIOGRAM, April 07, 2017, 1:13. INDICATIONS : Shortness of breath. History og lung cancer. IV CONTRAST: 70 cc Omnipaque 350 (iohexol) IV RADIATION DOSE: 23.32 CTDIvol (mGy) MEDICAL HISTORY : Carcinoma, lung. Metastatic, liver. Hypertension.COPD SURGICAL HISTORY : Tubal ligation. Power port ENCOUNTER: Initial ACUITY: 3 days PAIN SCALE: 0/10 LOCATION: chest TECHNIQUE: Volumetric scanning of the chest was performed using a pulmonary embolism protocol MIP images were re constructed. Using automated exposure control and adjustment of the mA and/or kV according to patien t size, radiation dose was kept as low as reasonably achievable to obtain optimal diagnostic quality images. DICOM format image data is available electronically for review and comparison. Follow-up recommendations for detected pulmonary nodules are based at a minimum on nodule size and pa tient risk factors according to Fleischner Society Guidelines. FINDINGS: PULMONARY ARTERIES: No filling defects are seen in the pulmonary arteries through the segmental level. LUNGS: There is severe centrilobular and paraseptal emphysema. Mild air space consolidation is present in th e left upper lobe abutting the fissure. PLEURAE: There is no pleural thickening or pleural effusion. MEDIASTINUM: Heart and great vessels demonstrate no acute finding. There is coronary artery calcification. Right c hest wall [id number] is present. Trace pericardial fluid is visualized. There are enlarged left luong praclavicular lymph nodes and mediastinal lymph nodes. The left supraclavicular lymph nodes are stabl e. The mediastinal lymph nodes have slightly decreased in size. Index AP window lymph node currently measures 2.3 x 1.3 cm compared to 2.7 x 1.7 cm. MUSCULOSKELETAL: There are mild degenerative changes of the thoracic spine. No lytic or blastic lesion is visualized. MISCELLANEOUS: The visualized upper abdominal organs demonstrate no acute abnormality. CONCLUSION: 1. No PE is identified. 2. The mediastinal and left supraclavicular lymphadenopathy has slightly decreased in size, as above. However, multiple enlarged lymph nodes remain present. 3. Nonacute findings include severe emphysema and coronary artery calcification. Abhinav Kraft MD on July 30, 2017 at 0:11 Board Certified Radiologist. This report was verified electronically.
--- NOTE | 2017-07-30 00:25 | HHI.HP ---
HPI Service Critical Care Medicine Primary Care Physician Gisselle Hammond M.D. 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 As per chart documentation, she was saturating in the 60s but responded after 3 nebulizer treatments and 125mg solumedrol. The patient had decreased breaths sounds bilaterally and after treatment seems significantly improved. She is tired but AAOx3 and saturating at 98% on 3L nasal cannula in the urgency department. Patient uses 2 L nasal cannulae the home at her baseline. Her oncologist is Dr. Martinez. Denies any fever, chest pain, nausea, vomiting, abdominal pain, focal weakness or numbness. Review of Systems Constitutional: DENIES: Diaphoretic episodes, Fatigue, Fever, Weight gain, Weight loss, Chills, Dizziness, Change in appetite, Night Sweats Endocrine: DENIES: Abnorml menstrual pattern, Heat/cold intolerance, Polydipsia , Polyuria, Polyphagia Eyes: DENIES: Blurred vision, Diplopia, Eye inflammation, Eye pain, Vision loss , Photosensitivity, Double Vision Ears, nose, mouth, throat: DENIES: Tinnitus, Hearing loss, Vertigo, Nasal discharge, Oral lesions, Throat pain, Hoarseness, Ear Pain, Running Nose, Epistaxis, Sinus Pain, Toothache, Odynophagia Respiratory: COMPLAINS OF: Shortness of breath, DENIES: Apneas, Cough, Snoring , Wheezing, Hemoptysis, Sputum production Cardiovascular: DENIES: Chest pain, Palpitations, Syncope, Dyspnea on Exertion , PND, Lower Extremity Edema, Orthopnea, Claudication Gastrointestinal: DENIES: Abdominal pain, Black stools, Bloody stools, Constipation, Diarrhea, Nausea, Vomiting, Difficulty Swallowing, Anorexia Genitourinary: DENIES: Abnormal vaginal bleeding, Dysmenorrhea, Dyspareunia, Sexual dysfunction, Urinary frequency, Urinary incontinence, Urgency, Hematuria , Dysuria, Nocturia, Vaginal discharge Musculoskeletal: DENIES: Joint pain, Muscle aches, Stiffness, Joint Swelling, Back pain, Neck pain Integumentary: DENIES: Abnormal pigmentation, Pruritus, Rash, Nail changes, Breast masses, Breast skin changes, Nipple discharge Hematologic/lymphatic: DENIES: Bruising, Lymphadenopathy Immunologic/allergic: DENIES: Eczema, Urticaria Neurologic: DENIES: Abnormal gait, Headache, Localized weakness, Paresthesias, Seizures, Speech Problems, Tremor, Poor Balance Psychiatric: DENIES: Anxiety, Confusion, Mood changes, Depression, Hallucinations, Agitation, Suicidal Ideation, Homicidal Ideation, Delusions Past Family Social History Allergies: Coded Allergies: diazepam (Unverified Allergy, Severe, HIVES, 07/29/17) *MDRO Multi-Drug Resistant Organism (Verified Adverse Reaction, Unknown, ) MRSA PCR Screen POSITIVE - 03/19/2016 Past Medical History COPD Hypertension Atrial fibrillation History of kidney stone 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 Past Surgical History Hand surgery Tubal ligation Right chest port Reported Medications Reported Meds & Active Scripts Active Prednisone 20 Mg Tab 20 Mg PO BID 30 Days Pantoprazole (Pantoprazole Sodium) 40 Mg Tab 40 Mg PO DAILY 30 Days Mirtazapine 15 Mg Tab 15 Mg PO HS 30 Days Metoprolol Tartrate 25 Mg Tab 12.5 Mg PO Q12HR 30 Days Dok (Docusate Sodium) 100 Mg Cap 100 Mg PO BID 30 Days Klonopin (Clonazepam) 0.5 Mg Tab 0.5 Mg PO Q8HR Gnp Melatonin Maximum Str (Melatonin) 5 Mg Tab 5 Mg PO HS 30 Days Cardizem CD 24 HR (Diltiazem CD 24 HR) 180 Mg Caper 180 Mg PO DAILY 30 Days Symbicort Inh (Budesonide/Formoterol Fumarate) 160-4.5 Mcg/Act Aero 2 Puff INH Q12HR 30 Days Lipitor (Atorvastatin Calcium) 20 Mg Tab 20 Mg PO HS Atrovent HFA 12.9 GM Inh (Ipratropium Woodward) 17 Mcg/Act Aer 2 Puff INH QID Spiriva Handihaler (Tiotropium Inh) 18 Mcg Cap 18 Mcg INH DAILY 1 capsule = 18 mcg Reported Megestrol (Megestrol Acetate) 40 Mg Tab 40 Mg PO QID Active Ordered Medications Current Medications Medications (Trade) Dose Ordered Sig/Rossana Route PRN Reason Start Time Stop Time Status Last Admin Dose Admin Atorvastatin Calcium (Lipitor) 20 mg HS PO 07/30/17 21:00 Budesonide/ Formoterol Fumarate (Symbicort 160-4.5 Inh) 2 puff Q12HR INH 07/30/17 09:00 Clonazepam (KlonoPIN) 0.5 mg Q8HR PO 07/30/17 06:00 Diltiazem HCl (Cardizem Cd) 180 mg DAILY PO 07/30/17 09:00 Megestrol Acetate (Megace) 40 mg QID PO 07/30/17 09:00 Melatonin (Melatonin) 5 mg HS PO 07/30/17 21:00 Metoprolol Tartrate (Lopressor) 12.5 mg Q12HR PO 07/30/17 09:00 Mirtazapine (Remeron) 15 mg HS PO 07/30/17 21:00 Pantoprazole Sodium (Protonix) 40 mg DAILY PO 07/30/17 09:00 Prednisone (Deltasone) 20 mg BID PO 07/30/17 09:00 Tiotropium Woodward (Spiriva Inh) 18 mcg DAILY INH 07/30/17 09:00 Sodium Chloride 1,000 ml @ 84 mls/hr [id number] IV 07/30/17 00:19 07/30/17 01:26 Sodium Chloride (NS Flush) 2 ml UNSCH PRN .XX FLUSH AFTER USING IV ACCESS 07/30/17 00:30 Sodium Chloride (NS Flush) 2 ml BID .XX 07/30/17 09:00 Acetaminophen (Tylenol) 650 mg Q6H PRN PO PAIN 1-10 AND/OR FEVER >101F 07/30/17 00:30 Morphine Sulfate (Morphine Inj) 2 mg Q2H PRN IV PAIN SCALE 6 TO 10 07/30/17 00:30 Ondansetron HCl (Zofran Inj) 4 mg Q6H PRN IV NAUSEA OR VOMITING 07/30/17 00:30 Zolpidem Tartrate (Ambien) 5 mg HS PRN PO INSOMNIA 07/30/17 00:30 Albuterol/ Ipratropium (Duoneb Neb) 1 ampule Q4HR NEB INH 07/30/17 04:00 07/30/17 03:38 Albuterol/ Ipratropium (Duoneb Neb) 1 ampule Q2HR NEB PRN INH WHEEZING 07/30/17 00:30 Enoxaparin Sodium (Lovenox Inj) 40 mg Q24H SQ 07/30/17 01:00 07/30/17 01:27 Miscellaneous Information 1 Q361D XX 07/30/17 00:30 07/30/17 02:00 Chlorhexidine Gluconate (Chlorhexidine 2% Cloth) 3 pack Taper DAILY@04 TOP 07/30/17 04:00 07/26/18 03:59 07/30/17 03:08 Chlorhexidine Gluconate (Chlorhexidine 2% Cloth) 3 pack UNSCH PRN TOP HYGIENIC CARE 07/30/17 00:30 Senna/Docusate Sodium (Agustina-Colace) 1 tab BID PO 07/30/17 09:00 Magnesium Hydroxide (Milk Of Magnesia Liq) 30 ml Q12H PRN PO MILD - MODERATE CONSTIPATION 07/30/17 00:30 Sennosides (Senokot) 17.2 mg Q12H PRN PO MODERATE - SEVERE CONSTIPATION 07/30/17 00:30 Bisacodyl (Dulcolax Supp) 10 mg DAILY PRN RECTAL SEVERE CONSITIPATION 07/30/17 00:30 Lactulose (Lactulose Liq) 30 ml DAILY PRN PO SEVERE CONSITIPATION 07/30/17 00:30 Piperacillin Sod/ Tazobactam Sod 100 ml @ 200 mls/hr Q6H IV 07/30/17 02:00 07/30/17 03:07 Azithromycin 500 mg/Sodium Chloride 250 ml @ 250 mls/hr Q24H IV 07/30/17 23:00 Methylprednisolone Sodium Succinate (SoluMEDROL INJ) 40 mg Q12H IV 07/30/17 01:00 07/30/17 01:26 Miscellaneous (Pill Splitter) 1 ea UNSCH PRN OTHER SEE LABEL COMMENTS 07/30/17 00:30 Family History No family history significant for early coronary artery disease or malignancy Social History She is not . She still smokes a small amount on and off. She denies alcohol or illicit drug abuse. Occasionally smokes medical marijuana to increase her appetite. Physical Exam Vital Signs Vital Signs Date Time Temp Pulse Resp B/P (MAP) Pulse Ox O2 Delivery O2 Flow Rate FiO2 07/29/17 22:40 93 40 07/29/17 22:00 117 26 136/90 (105) 96 BiPAP 07/29/17 21:00 128 28 166/90 (115) 98 BiPAP 07/29/17 20:44 38 97 Nasal Cannula 3.00 07/29/17 20:44 97 Nasal Cannula 3.00 07/29/17 20:40 98 40 07/29/17 20:35 98.1 139 38 183/112 (135) 98 07/29/17 20:35 98 Nasal Cannula 3.00 Physical Exam GENERAL: Elderly appearing woman in moderate distress. SKIN: Warm and dry. HEAD: Normocephalic. EYES: No scleral icterus. No injection or drainage. NECK: Supple, trachea midline. No JVD or lymphadenopathy. CARDIOVASCULAR: Regular rate and rhythm without murmurs, gallops, or rubs. RESPIRATORY: Breath sounds equal bilaterally. No accessory muscle use. GASTROINTESTINAL: Abdomen soft, non-tender, nondistended. MUSCULOSKELETAL: No cyanosis, or edema. BACK: Nontender without obvious deformity. NEURO EXAM: GCS: M 6 V 5 E4 Mental Status: The patient is alert and oriented to person, place, and time with normal speech. Cranial Nerves: Visual acuity intact bilaterally. Visual mathis normal in all quadrants. Pupils are round, reactive to light. Extraocular movements are intact without ptosis. Hearing is normal bilaterally. Voice is normal. Tongue protrudes midline and moves symmetrically. Reflexes: Biceps, patellar, and Achilles are 2/4 bilaterally. No clonus. Sensation: Sensation is intact bilaterally to pain and light touch. Two-point discrimination is intact. Motor: Good muscle tone. Strength is 5/5 bilaterally. Cerebellar: [id number] and [id number] test normal bilaterally. Laboratory Laboratory Tests Test 07/29/17 20:30 07/29/17 20:50 07/29/17 21:00 07/29/17 21:19 Blood Gas Puncture Site LT RADIAL RT RADIAL Blood Gas Patient Temperature 98.6 98.6 Blood Gas HCO3 43 37 Blood Gas Base Excess 15.0 9.8 Blood Gas Oxygen Saturation 93 94 Arterial Blood pH 7.26 7.28 Arterial Blood Partial Pressure CO2 98 81 Arterial Blood Partial Pressure O2 102 113 Arterial Blood Oxygen Content 20.9 18.2 Arterial Blood Carboxyhemoglobin 3.4 3.3 Arterial Blood Methemoglobin 0.8 0.7 Blood Gas Hemoglobin 15.9 13.7 Oxygen Delivery Device NASAL CANNULA BiPAP Blood Gas Liter Flow 3 White Blood Count 12.4 Red Blood Count 5.17 Hemoglobin 15.9 Hematocrit 50.9 Mean Corpuscular Volume 98.5 Mean Corpuscular Hemoglobin 30.8 Mean Corpuscular Hemoglobin Concent 31.2 Red Cell Distribution Width 16.1 Platelet Count 87 Mean Platelet Volume 8.9 Neutrophils (%) (Auto) 88.0 Lymphocytes (%) (Auto) 8.0 Monocytes (%) (Auto) 3.4 Eosinophils (%) (Auto) 0.0 Basophils (%) (Auto) 0.6 Neutrophils # (Auto) 10.9 Lymphocytes # (Auto) 1.0 Monocytes # (Auto) 0.4 Eosinophils # (Auto) 0.0 Basophils # (Auto) 0.1 CBC Comment AUTO DIFF Differential Comment AUTO DIFF CONFIRMED Platelet Estimate LOW Platelet Morphology Comment NORMAL Ovalocytes 1+ Stomatocytes 1+ Lactic Acid Level 1.0 B-Type Natriuretic Peptide 34 Prothrombin Time 11.8 Prothromb Time International Ratio 1.1 Activated Partial Thromboplast Time 29.4 Blood Gas Ventilator Setting IPAP14/EPAP6 Blood Gas Inspired Oxygen 40 Test 07/29/17 22:32 07/29/17 23:45 Blood Urea Nitrogen 28 Creatinine 0.54 Random Glucose 334 Calcium Level 8.9 Magnesium Level 2.2 Sodium Level 142 Potassium Level 4.5 Chloride Level 100 Carbon Dioxide Level 36.8 Anion Gap 5 Estimat Glomerular Filtration Rate 119 Troponin I 0.04 Blood Gas Puncture Site RT RADIAL Blood Gas Patient Temperature 98.6 Blood Gas HCO3 35 Blood Gas Base Excess 8.7 Blood Gas Oxygen Saturation 93 Arterial Blood pH 7.28 Arterial Blood Partial Pressure CO2 78 Arterial Blood Partial Pressure O2 88 Arterial Blood Oxygen Content 16.0 Arterial Blood Carboxyhemoglobin 2.9 Arterial Blood Methemoglobin 0.7 Blood Gas Hemoglobin 12.2 Oxygen Delivery Device BiPAP Blood Gas Ventilator Setting IPAP14/EPAP6 Blood Gas Inspired Oxygen 40 Date/Time Source Procedure Growth Status 07/29/17 20:50 Blood Peripheral Aerobic Blood Culture Pending Received 07/29/17 20:50 Blood Peripheral Anaerobic Blood Culture Pending Received Result Diagram: 07/29/17204907/29/172231 Imaging Last 24 hours Impressions Chest X-Ray 07/30/17 0600 Signed Impressions: Service Date/Time: Sunday, July 30, 2017 02:52 - CONCLUSION: No acute cardiopulmonary abnormality is identified. Abhinav Kraft MD Chest X-Ray 07/29/172036 Signed Impressions: Service Date/Time: June 21:05 - CONCLUSION: No acute disease. Abhinav Giles MD CT Angiography 07/29/172036 Signed Impressions: Service Date/Time: June 23:57 - CONCLUSION: 1. No PE is identified. 2. The mediastinal and left supraclavicular lymphadenopathy has slightly decreased in size, as above. However, multiple enlarged lymph nodes remain present. 3. Nonacute findings include severe emphysema and coronary artery calcification. MD Morales Ortiz VTE Risk Assessment Caprini VTE Risk Assessment: Mod/High Risk (score >= 2) Caprini Risk Assessment Model Point Value = 1 Point Value = 2 Point Value = 3 Point Value = 5 Age 41-60 Minor surgery BMI > 25 kg/m2 Swollen legs Varicose veins or History of unexplained or recurrent spontaneous Oral contraceptives or hormone replacement Sepsis (< 1 month) Serious lung disease, including pneumonia (< 1 month) Abnormal pulmonary function Acute myocardial infarction Congestive heart failure (< 1 month) History of inflammatory bowel disease Medical patient at bed rest Age 61-74 Arthroscopic surgery Major open surgery (> 45 min) Laparoscopic surgery (> 45 min) Malignancy Confined to bed (> 72 hours) Immobilizing plaster cast Central venous access Age >= 75 History of VTE Family history of VTE Factor V Leiden Prothrombin [id number] Lupus anticoagulant Anticardiolipin antibodies Elevated serum homocysteine Heparin-induced thrombocytopenia Other congenital or acquired thrombophilia Stroke (< 1 month) Elective arthroplasty Hip, pelvis, or leg fracture Acute spinal cord injury (< 1 month) Prophylaxis Regimen Total Risk Factor Score Risk Level Prophylaxis Regimen 0-1 Low Early ambulation 2 Moderate Order ONE of the following: *Sequential Compression Device (SCD) *Heparin 5000 units SQ BID 3-4 Higher Order ONE of the following medications: *Heparin 5000 units SQ TID *Enoxaparin/Lovenox 40 mg SQ daily (WT < 150 kg, CrCl > 30 mL/min) *Enoxaparin/Lovenox 30 mg SQ daily (WT < 150 kg, CrCl > 10-29 mL/min) *Enoxaparin/Lovenox 30 mg SQ BID (WT < 150 kg, CrCl > 30 mL/min) AND/OR *Sequential Compression Device (SCD) 5 or more Highest Order ONE of the following medications: *Heparin 5000 units SQ TID (Preferred with Epidurals) *Enoxaparin/Lovenox 40 mg SQ daily (WT < 150 kg, CrCl > 30 mL/min) *Enoxaparin/Lovenox 30 mg SQ daily (WT < 150 kg, CrCl > 10-29 mL/min) *Enoxaparin/Lovenox 30 mg SQ BID (WT < 150 kg, CrCl > 30 mL/min) AND *Sequential Compression Device (SCD) Assessment and Plan Assessment and Plan COPD exacerbation - Prednisone - Spiriva - Symbicort - Empiric antibiotic - DuoNeb scheduled and when necessary Anxiety - Clonazepam when necessary Atrial fibrillation - Diltiazem - Metoprolol Hypertension - Metoprolol Non-small cell carcinoma of the lungs - Supportive care - Megestrol Acetate - Mirtazapine DVT GI prophylaxis - Pantoprazole - Lovenox - Teds SCDs Critical Care: The total critical care time was 35 minutes. Time to perform other separately billable procedures was not included in the critical care time. Berny Zuñiga MD Jul 30, 2017 12:25 am
[2017-07-30] MEDS ORDERED: ACETAMINOPHEN 325 MG TAB PO PRN (00:30)
[2017-07-30] MEDS ORDERED: BISACODYL 10 MG SUPP RECTAL PRN (00:30)
[2017-07-30] MEDS ORDERED: LACTULOSE SYRUP 20 GM/30 ML CUP PO PRN (00:30)
[2017-07-30] MEDS ORDERED: CHLORHEXIDINE GLUCONATE 2 % 1 PACK (2 CLOTHS) TOP PRN (00:30)
[2017-07-30] MEDS ORDERED: RESP: ALBUTEROL 2.5 MG/IPRATROPIUM 0.5 MG NEB (PRN) INH (00:30)
[2017-07-30] MEDS ORDERED: SENNOSIDES 8.6 MG TAB PO PRN (00:30)
[2017-07-30] MEDS ORDERED: SODIUM CHLORIDE 0.9% FLUSH 10 ML FLUSH PRN (00:30)
[2017-07-30] MEDS ORDERED: PILL SPLITTER OTHER PRN (00:30)
[2017-07-30] MEDS ORDERED: MAGNESIUM HYDROXIDE SUSP 30 ML CUP PO PRN (00:30)
[2017-07-30] MEDS ORDERED: MISCELLANEOUS NURSING INFORMATION XX SCH (00:30)
[2017-07-30] MEDS ORDERED: ONDANSETRON HCL 4 MG/2 ML VIAL IV PRN (00:30)
[2017-07-30] MEDS ORDERED: ZOLPIDEM TARTRATE 5 MG TAB PO PRN (00:30)
[2017-07-30] MEDS ORDERED: methylPREDNISolone SOD SUCC 40 MG/1 ML VIAL IV SCH (01:00)
[2017-07-30] MEDS: SODIUM CHLOR 0.9% 1000 ML INJ 1,000 ML IV SCH ×3 (01:26→23:17)
[2017-07-30] MEDS: ENOXAPARIN SODIUM 40 MG/0.4 ML SYRINGE SQ SCH (01:27)
[2017-07-30] MEDS: PIPERACIL-TAZO 4.5 GM PREMIX 100 ML IV SCH ×4 (03:07→20:33)
[2017-07-30] MEDS: CHLORHEXIDINE GLUCONATE 2 % 1 PACK (2 CLOTHS) TOP SCH (03:08)
--- NOTE | 2017-07-30 03:08 | RADRPT ---
EXAM DATE/TIME: 07/30/2017 02:52 [facility] COMPARISON: CHEST SINGLE AP, July 29, 2017, 21:05. INDICATIONS : Shortness of breath MEDICAL HISTORY : Chronic obstructive pulmonary disease. Hypertension Carcinoma, lung. SURGICAL HISTORY : Tubal ligation. ENCOUNTER: Subsequent ACUITY: 2 days PAIN SCORE: Non-responsive. LOCATION: Bilateral chest FINDINGS: Portable AP view of the chest demonstrates a normal-sized cardiac silhouette. A right chest wall Infu se-a-Port is present. No effusion, consolidation, or pneumothorax is identified. Bones and soft tissu es demonstrate no acute finding. CONCLUSION: No acute cardiopulmonary abnormality is identified. Abhinav Kraft MD on July 30, 2017 at 3:05 Board Certified Radiologist. This report was verified electronically.
[2017-07-30] MEDS: RESP: ALBUTEROL 2.5 MG/IPRATROPIUM 0.5 MG NEB (SCH) INH ×5 (03:38→20:03)
[2017-07-30] MEDS: clonazePAM 0.5 MG TAB PO SCH ×3 (06:00→20:34)
[2017-07-30] MEDS ORDERED: MAGNESIUM SULFATE INJ 4 GM in SODIUM CHLORIDE 0.9% INJ 92 ML IV PRN (07:15)
[2017-07-30] MEDS ORDERED: POTASSIUM CHLOR 40 MEQ PREMIX 100 ML IV PRN (07:15)
[2017-07-30] MEDS ORDERED: SODIUM PHOSPHATE INJ 30 MMOL in SODIUM CHLOR 0.9% 250 ML INJ 240 ML IV PRN (07:15)
[2017-07-30] MEDS ORDERED: MAGNESIUM SULFATE INJ 2 GM in SODIUM CHLORIDE 0.9% INJ 96 ML IV PRN (07:15)
[2017-07-30] MEDS ORDERED: POTASSIUM PHOSPHATE INJ 30 MMOL in SODIUM CHLOR 0.9% 250 ML INJ 250 ML IV PRN (07:15)
[2017-07-30] MEDS ORDERED: GLUCAGON 1 MG/ML VIAL OTHER PRN (07:15)
[2017-07-30] MEDS ORDERED: DEXTROSE 50% IN WATER 50 ML VIAL(D50) IV PRN (07:15)
[2017-07-30] MEDS ORDERED: POTASSIUM CHLORIDE 25 MEQ EFFERVESCENT TAB PO PRN (07:15)
[2017-07-30] MEDS ORDERED: MAGNESIUM OXIDE 400 MG TAB PO PRN (07:15)
[2017-07-30] MEDS ORDERED: POTASSIUM CHLOR 20 MEQ PREMIX 100 ML IV PRN (07:15)
[2017-07-30] MEDS ORDERED: POTASSIUM PHOSPHATE MONOBASIC 500 MG TAB PO/TUBE PRN (07:15)
[2017-07-30 07:26] LABS: BLOOD GAS BASE EXCESS 9.2 mmol/L (-2-2); BLOOD GAS CARBOXYHEMOGLOBIN 2.5 % (0-4); BLOOD GAS HCO3 36 mmol/L (22-26); BLOOD GAS METHEMOGLOBIN 1.1 % (0-2); BLOOD GAS O2 HGB SATURATION 90 % (90-100); BLOOD GAS OXYGEN CONTENT 16.9 Vol % (12.0-20.0); BLOOD GAS PCO2 78 mmHg (38-42); BLOOD GAS PO2 75 mmHg (61-120); BLOOD GAS TOTAL HGB 13.4 G/DL (12.0-16.0); TEMP CORR TO 98.6
[2017-07-30 07:27] LABS: CRITICAL VALUE YES; DRAW SITE RT RADIAL; FIO2 45 %; NUMBER OF ARTERIAL PUNCTURES 1; OXYGEN DEVICE BiPAP; STAT YES; ULNAR PULSE PRESENT; VENT SETTINGS IPAP14EPAP6
[2017-07-30] MEDS ORDERED: POTASSIUM PHOSPHATE MONOBASIC 500 MG TAB PO PRN (08:00)
[2017-07-30 08:17] LABS: AUTOMATED NEUTROPHIL # 5.9 TH/MM3 (1.8-7.7); BASOPHIL % 0.1 % (0.0-2.0); HEMO FLAGS DIFF FINAL; LYMPH % 3.8 % (9.0-44.0); LYMPHOCYTE # 0.2 TH/MM3 (1.0-4.8); MEAN CELL VOLUME 99.1 FL (80.0-100.0); MEAN CORPUSCULAR HEMOGLOBIN 31.5 PG (27.0-34.0); MEAN CORPUSCULAR HGB CONC 31.8 % (32.0-36.0); MONO % 1.5 % (0.0-8.0); NEUT % 94.6 % (16.0-70.0); PLATELET COUNT 104 TH/MM3 (150-450); RED BLOOD COUNT 4.04 MIL/MM3 (4.00-5.30); RED CELL DISTRIBUTION WIDTH 15.9 % (11.6-17.2); WHITE BLOOD COUNT 6.2 TH/MM3 (4.0-11.0)
[2017-07-30 08:33] LABS: ALT (GPT) 21 U/L (10-53); AST (GOT) 9 U/L (15-37); BICARBONATE 37.8 MEQ/L (21.0-32.0); BLOOD UREA NITROGEN 26 MG/DL (7-18); GLOMERULAR FILTRATION RATE 143 ML/MIN (>89); MAGNESIUM 1.9 MG/DL (1.5-2.5)
[2017-07-30 08:54] LABS: ALKALINE PHOSPHATASE 62 U/L (45-117); ANION GAP 4 MEQ/L (5-15); CHLORIDE 102 MEQ/L (98-107); POTASSIUM 3.9 MEQ/L (3.5-5.1); SODIUM (NA) 144 MEQ/L (136-145); TOTAL BILIRUBIN ADULT 0.3 MG/DL (0.2-1.0)
[2017-07-30] MEDS: MEGESTROL ACETATE 40 MG TAB PO SCH ×4 (08:56→20:34)
[2017-07-30] MEDS: DILTIAZEM-CD 180 MG CAP ER PO SCH (08:56)
[2017-07-30] MEDS: DOCUSATE SODIUM 50 MG/SENNA 8.6 MG TAB PO SCH ×2 (08:56→21:00)
[2017-07-30] MEDS: PANTOPRAZOLE SODIUM 40 MG VIAL IV PUSH SCH (08:57)
[2017-07-30] MEDS: METOPROLOL TARTRATE 25 MG TAB PO SCH ×2 (08:57→20:39)
[2017-07-30] MEDS ORDERED: PANTOPRAZOLE SOD 40 MG DELAYED RELEASE TAB PO SCH (09:00)
[2017-07-30] MEDS ORDERED: predniSONE 20 MG TAB PO SCH (09:00)
[2017-07-30] MEDS: INSULIN NovoLIN REGULAR SUPPLEMENTAL SCALE SQ SCH ×4 (09:04→20:00)
[2017-07-30] MEDS: SODIUM CHLORIDE 0.9% FLUSH 10 ML FLUSH SCH (09:05)
[2017-07-30] MEDS: TIOTROPIUM BROMIDE 18 MCG INH INH SCH (09:12)
[2017-07-30] MEDS: BUDESONIDE-FORMOTEROL 160/4.5 MCG INHALER INH SCH ×2 (09:12→20:35)
[2017-07-30] MEDS: methylPREDNISolone SOD SUCC 40 MG/1 ML VIAL IV PUSH SCH ×3 (09:13→20:35)
[2017-07-30] MEDS: MELATONIN 5 MG TAB PO SCH (20:34)
[2017-07-30] MEDS: ATORVASTATIN 20 MG TAB PO SCH (20:34)
[2017-07-30] MEDS: MIRTAZAPINE 15 MG TAB PO SCH (20:41)
[2017-07-30] MEDS: AZITHROMYCIN INJ 500 MG in SODIUM CHLOR 0.9% 250 ML INJ 250 ML IV SCH (23:16)
[2017-07-31] VITALS (31 sets, daily range): BP systolic 114–142; BP diastolic 62–91; PULSE 92–116; RESP 0–43; TEMP 97.5–98.1; O2SAT 90–98
[2017-07-31] MEDS: RESP: ALBUTEROL 2.5 MG/IPRATROPIUM 0.5 MG NEB (SCH) INH ×7 (00:20→23:57)
--- NOTE | 2017-07-31 00:56 | EKG ---
Date Performed: 07/29/2017 Time Performed: 20:31:56 PTAGE: 51 years EKG: SINUS TACHYCARDIA NONSPECIFIC T-WAVE ABNORMALITY ABNORMAL RHYTHM ECG Compared to the PREVIOUS TRACING from 04/26/17, rate has increased DOCTOR: Shailesh Barajas Interpretating Date/Time 07/31/2017 00:54:49
[2017-07-31] MEDS: PIPERACIL-TAZO 4.5 GM PREMIX 100 ML IV SCH ×4 (01:02→20:37)
[2017-07-31] MEDS: ENOXAPARIN SODIUM 40 MG/0.4 ML SYRINGE SQ SCH (01:02)
[2017-07-31] MEDS: CHLORHEXIDINE GLUCONATE 2 % 1 PACK (2 CLOTHS) TOP SCH (04:00)
[2017-07-31 05:30] LABS: AUTOMATED NEUTROPHIL # 6.4 TH/MM3 (1.8-7.7); BASOPHIL % 0.1 % (0.0-2.0); HEMATOCRIT 40.5 % (35.0-46.0); HEMO FLAGS DIFF FINAL; LYMPHOCYTE # 0.1 TH/MM3 (1.0-4.8); MEAN CELL VOLUME 98.7 FL (80.0-100.0); MEAN CORPUSCULAR HEMOGLOBIN 31.5 PG (27.0-34.0); MEAN CORPUSCULAR HGB CONC 31.9 % (32.0-36.0); MONO % 3.2 % (0.0-8.0); NEUT % 94.7 % (16.0-70.0); PLATELET COUNT 112 TH/MM3 (150-450); WHITE BLOOD COUNT 6.8 TH/MM3 (4.0-11.0)
[2017-07-31] MEDS: clonazePAM 0.5 MG TAB PO SCH ×3 (06:00→20:57)
[2017-07-31] MEDS: methylPREDNISolone SOD SUCC 40 MG/1 ML VIAL IV PUSH SCH ×3 (06:04→20:38)
[2017-07-31 06:43] LABS: ALKALINE PHOSPHATASE 55 U/L (45-117); ALT (GPT) 21 U/L (10-53); ANION GAP 1 MEQ/L (5-15); AST (GOT) 11 U/L (15-37); BICARBONATE 41.1 MEQ/L (21.0-32.0); BLOOD UREA NITROGEN 22 MG/DL (7-18); CHLORIDE 102 MEQ/L (98-107); GLOMERULAR FILTRATION RATE 168 ML/MIN (>89); POTASSIUM 3.1 MEQ/L (3.5-5.1); SODIUM (NA) 144 MEQ/L (136-145); TOTAL BILIRUBIN ADULT 0.2 MG/DL (0.2-1.0)
[2017-07-31] MEDS: POTASSIUM CHLOR 40 MEQ PREMIX 100 ML IV PRN ×2 (07:04→08:57)
[2017-07-31] MEDS: PANTOPRAZOLE SODIUM 40 MG VIAL IV PUSH SCH (08:00)
[2017-07-31] MEDS: INSULIN NovoLIN REGULAR SUPPLEMENTAL SCALE SQ SCH ×5 (08:00→20:00)
--- NOTE | 2017-07-31 08:30 | HHI.CCPN ---
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 As per chart documentation, she was saturating in the 60s but responded after 3 nebulizer treatments and 125mg solumedrol. The patient had decreased breaths sounds bilaterally and after treatment seems significantly improved. She is tired but AAOx3 and saturating at 98% on 3L nasal cannula in the urgency department. Patient uses 2 L nasal cannulae the home at her baseline. Her oncologist is Dr. Martinez. Denies any fever, chest pain, nausea, vomiting, abdominal pain, focal weakness or numbness. 07/31 No events overnight. On BIPAP 15/06 with 45% FIO2. Afebrile. Objective Vital Signs Date Time Temp Pulse Resp B/P (MAP) Pulse Ox O2 Delivery O2 Flow Rate FiO2 07/31/17 08:14 98 45 07/31/17 04:30 95 0 120/69 (86) 07/31/17 04:00 97.8 07/31/17 03:30 Nasal Cannula 5.00 Intake and Output 07/31/17 07/31/17 08/01/17 08:00 16:00 00:00 Intake Total 180 ml Output Total 400 ml Balance -220 ml Result Diagram: 07/31/17 0405 07/31/17 0405 Other Results Laboratory Tests Test 07/31/17 04:05 White Blood Count 6.8 TH/MM3 Red Blood Count 4.10 MIL/MM3 Hemoglobin 12.9 GM/DL Hematocrit 40.5 % Mean Corpuscular Volume 98.7 FL Mean Corpuscular Hemoglobin 31.5 PG Mean Corpuscular Hemoglobin Concent 31.9 % Red Cell Distribution Width 16.0 % Platelet Count 112 TH/MM3 Mean Platelet Volume 9.5 FL Neutrophils (%) (Auto) 94.7 % Lymphocytes (%) (Auto) 2.0 % Monocytes (%) (Auto) 3.2 % Eosinophils (%) (Auto) 0.0 % Basophils (%) (Auto) 0.1 % Neutrophils # (Auto) 6.4 TH/MM3 Lymphocytes # (Auto) 0.1 TH/MM3 Monocytes # (Auto) 0.2 TH/MM3 Eosinophils # (Auto) 0.0 TH/MM3 Basophils # (Auto) 0.0 TH/MM3 CBC Comment DIFF FINAL Differential Comment Blood Urea Nitrogen 22 MG/DL Creatinine 0.40 MG/DL Random Glucose 178 MG/DL Total Protein 5.3 GM/DL Albumin 2.6 GM/DL Calcium Level 9.0 MG/DL Phosphorus Level 2.5 MG/DL Magnesium Level 2.0 MG/DL Alkaline Phosphatase 55 U/L Aspartate Amino Transf (AST/SGOT) 11 U/L Alanine Aminotransferase (ALT/SGPT) 21 U/L Total Bilirubin 0.2 MG/DL Sodium Level 144 MEQ/L Potassium Level 3.1 MEQ/L Chloride Level 102 MEQ/L Carbon Dioxide Level 41.1 MEQ/L Anion Gap 1 MEQ/L Estimat Glomerular Filtration Rate 168 ML/MIN Imaging Last Impressions Chest X-Ray 07/30/17 0600 Signed Impressions: Service Date/Time: Sunday, July 30, 2017 02:52 - CONCLUSION: No acute cardiopulmonary abnormality is identified. Abhinav Kraft MD CT Angiography 07/29/172036 Signed Impressions: Service Date/Time: June 23:57 - CONCLUSION: 1. No PE is identified. 2. The mediastinal and left supraclavicular lymphadenopathy has slightly decreased in size, as above. However, multiple enlarged lymph nodes remain present. 3. Nonacute findings include severe emphysema and coronary artery calcification. Abhinav Kraft MD Objective Remarks GENERAL: Patient is 51 yo lying in bed in NAD SKIN: Warm and dry. HEAD: Normocephalic. EYES: No scleral icterus. No injection or drainage. NECK: Supple, trachea midline. No JVD or lymphadenopathy. CARDIOVASCULAR: Regular rate and rhythm without murmurs, gallops, or rubs. RESPIRATORY: Breath sounds equal bilaterally. No accessory muscle use. GASTROINTESTINAL: Abdomen soft, non-tender, nondistended. MUSCULOSKELETAL: No cyanosis, or edema. BACK: Nontender without obvious deformity. No CVA tenderness. Neuro: No focal sensory deficits A/P Assessment and Plan 1)Acute hypercapnic resp failure 2)COPD exacerbation 3)Afib 4)Non small cell ca 5)HTN 6)Anxiety Plan Neuro: Awake and alert, avoid sedatives Pulm: Continue with oxygen keep sat >92% Bronchodilators, Solumederol 40mg Q8 NIPPV PRN for resp distress. Check ABG Pulm is following-Dr. Kurtz CV: Monitor HR and BP keep MAP>65mmHg On Lopressor 12.5mg Q12, Cardizem CD 180mg daily, Lipitor : Monitor renal function, I/O's, electrolytes replacement per protocol Will need K replacement today GI: On Protonix 40mg daily ID: Continue with abx ( Zithromax, Zosyn)monitor for signs of infections ( fever , WBC) Heme: Monitor CBC Endo: SSI for glycemic control GI/DVT prophylaxis- On Protonix and Lovenox SQ respectively Level 3 Kareem Schmitz MD Jul 31, 2017 08:30
[2017-07-31 08:44] LABS: BLOOD GAS BASE EXCESS 12.3 mmol/L (-2-2); BLOOD GAS CARBOXYHEMOGLOBIN 1.7 % (0-4); BLOOD GAS HCO3 39 mmol/L (22-26); BLOOD GAS METHEMOGLOBIN 1.1 % (0-2); BLOOD GAS O2 HGB SATURATION 94 % (90-100); BLOOD GAS PCO2 78 mmHg (38-42); BLOOD GAS PO2 85 mmHg (61-120); BLOOD GAS TOTAL HGB 12.9 G/DL (12.0-16.0); CRITICAL VALUE YES; TEMP CORR TO 98.6
[2017-07-31 08:45] LABS: DRAW SITE RT RADIAL; FIO2 45 %; NUMBER OF ARTERIAL PUNCTURES 1; OXYGEN DEVICE BIPAP 18IPAP/8EPAP; STAT NO; ULNAR PULSE PRESENT
[2017-07-31] MEDS: SODIUM CHLORIDE 0.9% FLUSH 10 ML FLUSH SCH ×2 (09:00→20:37)
[2017-07-31] MEDS: MEGESTROL ACETATE 40 MG TAB PO SCH ×4 (09:00→20:56)
[2017-07-31] MEDS: BUDESONIDE-FORMOTEROL 160/4.5 MCG INHALER INH SCH ×2 (09:00→20:56)
[2017-07-31] MEDS: TIOTROPIUM BROMIDE 18 MCG INH INH SCH (09:00)
[2017-07-31] MEDS: DOCUSATE SODIUM 50 MG/SENNA 8.6 MG TAB PO SCH ×2 (09:00→21:00)
[2017-07-31] MEDS: DILTIAZEM-CD 180 MG CAP ER PO SCH (09:00)
[2017-07-31] MEDS: METOPROLOL TARTRATE 25 MG TAB PO SCH ×2 (09:00→20:56)
[2017-07-31] MEDS ORDERED: VANCOMYCIN INJ 1,000 MG in SODIUM CHLOR 0.9% 250 ML INJ 250 ML IV ONE (11:00)
[2017-07-31] MEDS: SODIUM CHLOR 0.9% 1000 ML INJ 1,000 ML IV SCH (12:04)
--- NOTE | 2017-07-31 12:38 | MB ---
cc: LOTUS KESSLER DATE OF CONSULTATION: 07/30/2017. REASON FOR CONSULTATION: Respiratory distress and pneumonia. HISTORY OF PRESENT ILLNESS: This is a 51-year-old white female who has had a history of a small cell lung cancer with metastasis to the liver and who was admitted with progressive shortness breath, wheezing, cough and chest congestion of three to four days. The patient has a history of atrial fibrillation and COPD and anxiety disorder. She was treated as an outpatient initially and was subsequently brought into the hospital for evaluation. She did not improve and she has been on oxygen at 3 liters. The patient had hemoptysis. No night sweats, fevers or chills. She complains of chest tightness. No leg swelling or calf muscle pains. PAST MEDICAL HISTORY: Past history has included: 1. Atrial fibrillation. 2. Arteriosclerotic heart disease. 3. History of anxiety disorder. 4. History for COPD. 5. Hypertension. 6. Atrial fibrillation. 7. History of kidney stones. 8. Hand surgery. 9. Tubal ligation. 10. A port was placed in the right chest. MEDICATIONS: 1. Prednisone 20 milligrams twice a day daily. 2. Protonix 40 milligrams a day. 3. Mirtazapine 15 milligrams at bedtime. 4. Metoprolol 25 milligrams daily. 5. Klonopin 0.5 milligrams at bedtime. REVIEW OF SYSTEMS: Negative for generalized weakness and joint pain. She denies a skin rash. PHYSICAL EXAMINATION: GENERAL: This is an elderly lady alert and in no acute distress. VITAL SIGNS: Blood pressure is 140/70. HEAD, EYES, EARS, NOSE, THROAT: Head normocephalic. The pupils are reactive. Tongue is moist. Throat is injected. NECK: The neck is supple. No venous distention. Trachea is midline. No bruits. CHEST: Distant breath sounds with occasional coarse wheezes in the upper lung mathis. IMPRESSION: 1. Acute respiratory failure. 2. Sepsis and basilar pneumonia 3. COPD with emphysema with chronic bronchitis. 4. History of atrial fibrillation and arteriosclerotic heart disease. 5. Hypertension. PLAN: 1. The patient has been started on antibiotic coverage including cefepime 1 gram IV q.8 h and Zithromax 500 milligrams IV daily, nebulized DuoNeb solution added four times a day p.r.n. 2. The patient will be started on Symbicort 160 /4 two puffs twice a day. 3. Nebulized DuoNeb solution three times a day. 4. Continue with Cardizem 250 milligrams daily. 5. Metoprolol 50 milligrams twice a day. 6. The patient will have a follow up chest x-ray in the a.m. and a bedside pulmonary function test when she is stable. 7. We will place her on 02 at three liters and wean to keep saturations greater than 92. Thank you Dr. Menchaca for this consultation. MD PAVEL Vance/JAMAAL /11:46 PM /12:26 PM
--- NOTE | 2017-07-31 14:35 | HHI.PR ---
Subjective Remarks She is back on BIpap . Seems weak and not able to swallow well. Objective Vital Signs Date Time Temp Pulse Resp B/P (MAP) Pulse Ox O2 Delivery O2 Flow Rate FiO2 07/31/17 11:57 94 40 07/31/17 08:14 98 45 07/31/17 04:30 95 0 120/69 (86) 93 07/31/17 04:15 98 8 91 07/31/17 04:00 97.8 07/31/17 04:00 104 31 132/72 (92) 91 07/31/17 04:00 104 07/31/17 03:45 100 34 97 07/31/17 03:30 101 40 129/79 (96) 90 07/31/17 03:30 92 Nasal Cannula 5.00 07/31/17 03:15 93 31 92 07/31/17 03:00 96 35 118/70 (86) 94 07/31/17 02:45 92 31 94 07/31/17 02:30 96 37 127/74 (91) 93 07/31/17 02:15 94 37 93 07/31/17 02:00 95 2 125/74 (91) 91 07/31/17 02:00 95 07/31/17 01:45 97 19 91 07/31/17 01:30 94 34 123/72 (89) 93 07/31/17 01:15 96 34 91 07/31/17 01:00 96 1 123/77 (92) 94 07/31/17 00:45 100 42 94 07/31/17 00:30 101 33 114/76 (89) 96 07/31/17 00:20 97 45 07/31/17 00:15 101 31 94 07/31/17 00:00 109 29 125/83 (97) 91 07/31/17 00:00 109 07/31/17 00:00 97.5 07/30/17 23:45 111 24 95 07/30/17 23:30 112 19 137/83 (101) 96 07/30/17 23:15 114 22 100 07/30/17 23:00 107 27 117/81 (93) 97 07/30/17 22:45 109 26 97 07/30/17 22:30 108 20 124/78 (93) 99 07/30/17 22:15 110 30 98 07/30/17 22:00 92 07/30/17 22:00 110 9 119/78 (92) 95 07/30/17 21:45 115 27 95 07/30/17 21:30 113 33 124/83 (97) 90 07/30/17 21:15 113 30 90 07/30/17 21:00 113 37 121/78 (92) 89 07/30/17 20:45 120 39 81 07/30/17 20:30 112 38 134/81 (98) 94 07/30/17 20:15 115 44 95 07/30/17 20:07 92 Nasal Cannula 5.00 07/30/17 20:00 113 36 125/83 (97) 93 07/30/17 20:00 97.8 07/30/17 20:00 91 07/30/17 19:45 114 33 94 07/30/17 19:30 111 34 126/74 (91) 93 07/30/17 19:15 113 18 96 07/30/17 18:00 108 07/30/17 16:00 112 07/30/17 16:00 98.1 112 22 132/79 (96) 94 I/O 07/30/17 07/30/17 07/30/17 07/31/17 07/31/17 07/31/17 07:00 15:00 23:00 07:00 15:00 23:00 Intake Total 2685 ml 815 ml 100 ml 180 ml Output Total 750 ml 825 ml 400 ml Balance 1935 ml 815 ml -725 ml -220 ml Intake Oral 180 ml IV Total 2685 ml 815 ml 100 ml Output Urine Total 750 ml 825 ml 400 ml # Bowel Movements 0 0 Result Diagram: 07/31/17 0405 07/31/17 0405 Objective Remarks GENERAL: This is an elderly lady alert and in mild distress. HEAD, EYES, EARS, NOSE, THROAT: Head normocephalic. The pupils are reactive. Tongue is moist. Throat is clear. NECK: The neck is supple. No venous distention. Trachea is midline. No bruits. CHEST: Distant breath sounds with occasional coarse wheezes in the upper lung mathis.H S Irregular Abdomen :Soft no mass. BS + EXtr :No lesions . NO deficits. Assessment and Plan Assessment and Plan IMPRESSION: 1. Acute respiratory failure. 2. Sepsis and basilar pneumonia 3. COPD with emphysema with chronic bronchitis. 4. History of atrial fibrillation and arteriosclerotic heart disease. 5. Hypertension. 6. H/O Non Small Cell Lung Ca Plan : 1. Cont antibiotics,Zithromax, Zosyn. 2. Bipap 12/5 cm , FIO2 40 % 3. Nebs qid , duoneb. 4. Chest Xray in am 5. Solumedrol 40 mg IV q8h 6. Pureed Diet. 7. CBC,BMP in am. Rolanda Kurtz MD Jul 31, 2017 14:35
[2017-07-31] MEDS: MORPHINE SULFATE 4 MG/ML INJ IV PRN (20:38)
[2017-07-31] MEDS: ATORVASTATIN 20 MG TAB PO SCH (20:56)
[2017-07-31] MEDS: MELATONIN 5 MG TAB PO SCH (20:57)
[2017-07-31] MEDS: MIRTAZAPINE 15 MG TAB PO SCH (20:57)
[2017-08-01] VITALS (16 sets, daily range): BP systolic 151–160; BP diastolic 85–97; PULSE 91–112; RESP 26–31; TEMP 97.4–98.7; O2SAT 88–98
[2017-08-01] MEDS: PIPERACIL-TAZO 4.5 GM PREMIX 100 ML IV SCH ×4 (01:20→22:06)
[2017-08-01] MEDS: ENOXAPARIN SODIUM 40 MG/0.4 ML SYRINGE SQ SCH (01:20)
[2017-08-01] MEDS: AZITHROMYCIN INJ 500 MG in SODIUM CHLOR 0.9% 250 ML INJ 250 ML IV SCH ×2 (01:21→22:09)
[2017-08-01] MEDS: SODIUM CHLOR 0.9% 1000 ML INJ 1,000 ML IV SCH (01:21)
[2017-08-01] MEDS: MORPHINE SULFATE 4 MG/ML INJ IV PRN ×2 (01:22→22:09)
[2017-08-01] MEDS: RESP: ALBUTEROL 2.5 MG/IPRATROPIUM 0.5 MG NEB (SCH) INH ×5 (03:48→20:04)
[2017-08-01] MEDS: INSULIN NovoLIN REGULAR SUPPLEMENTAL SCALE SQ SCH ×6 (04:00→20:00)
[2017-08-01] MEDS: CHLORHEXIDINE GLUCONATE 2 % 1 PACK (2 CLOTHS) TOP SCH (04:00)
[2017-08-01 04:57] LABS: AUTOMATED NEUTROPHIL # 7.4 TH/MM3 (1.8-7.7); BASOPHIL % 0.1 % (0.0-2.0); HEMATOCRIT 41.2 % (35.0-46.0); HEMO FLAGS DIFF FINAL; LYMPH % 1.7 % (9.0-44.0); LYMPHOCYTE # 0.1 TH/MM3 (1.0-4.8); MEAN CELL VOLUME 98.7 FL (80.0-100.0); MEAN CORPUSCULAR HEMOGLOBIN 30.9 PG (27.0-34.0); MEAN CORPUSCULAR HGB CONC 31.3 % (32.0-36.0); MONO % 2.9 % (0.0-8.0); NEUT % 95.3 % (16.0-70.0); PLATELET COUNT 117 TH/MM3 (150-450); RED BLOOD COUNT 4.17 MIL/MM3 (4.00-5.30); RED CELL DISTRIBUTION WIDTH 15.9 % (11.6-17.2); WHITE BLOOD COUNT 7.8 TH/MM3 (4.0-11.0)
[2017-08-01 05:09] LABS: BICARBONATE 40.1 MEQ/L (21.0-32.0); POTASSIUM 3.9 MEQ/L (3.5-5.1)
[2017-08-01] MEDS: methylPREDNISolone SOD SUCC 40 MG/1 ML VIAL IV PUSH SCH ×2 (05:20→22:07)
[2017-08-01] MEDS: clonazePAM 0.5 MG TAB PO SCH ×3 (05:20→22:09)
--- NOTE | 2017-08-01 05:35 | RADRPT ---
EXAM DATE/TIME: 08/01/2017 04:06 [facility] COMPARISON: CHEST SINGLE AP, July 30, 2017, 2:52. INDICATIONS : Evaluate infiltrate MEDICAL HISTORY : Chronic obstructive pulmonary disease. Hypertension Carcinoma, lung. SURGICAL HISTORY : Tubal ligation. ENCOUNTER: Subsequent ACUITY: 3 days PAIN SCORE: Non-responsive. LOCATION: Bilateral chest FINDINGS: A single view of the chest demonstrates right [id number] in superior vena cava. Bilateral mostly b asilar airspace disease and small effusions. Heart size upper limits normal. CONCLUSION: 1. Basilar airspace disease and small effusions which have developed since July 30. No pneumothor ax. Michael Bowen MD on August 01, 2017 at 5:33 Board Certified Radiologist. This report was verified electronically.
--- NOTE | 2017-08-01 07:01 | HHI.CCPN ---
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 As per chart documentation, she was saturating in the 60s but responded after 3 nebulizer treatments and 125mg solumedrol. The patient had decreased breaths sounds bilaterally and after treatment seems significantly improved. She is tired but AAOx3 and saturating at 98% on 3L nasal cannula in the urgency department. Patient uses 2 L nasal cannulae the home at her baseline. Her oncologist is Dr. Martinez. Denies any fever, chest pain, nausea, vomiting, abdominal pain, focal weakness or numbness. 07/31 No events overnight. On BIPAP 187 with 45% FIO2. Afebrile. 08/01 No events overnight. Off BIPAP, awake and alert afebrile. Objective Vital Signs Date Time Temp Pulse Resp B/P (MAP) Pulse Ox O2 Delivery O2 Flow Rate FiO2 08/01/17 06:00 104 08/01/17 04:00 98.0 30 160/90 (113) 96 08/01/17 01:01 60 07/31/17 19:43 BiPAP 07/31/17 03:30 5.00 Intake and Output 08/01/17 08/01/17 08/01/17 07:59 15:59 23:59 Intake Total 240 ml Output Total 725 ml Balance -485 ml Result Diagram: 08/01/17 0330 08/01/17 0330 Other Results Laboratory Tests Test 07/31/17 08:36 08/01/17 03:30 Blood Gas Puncture Site RT RADIAL Blood Gas Patient Temperature 98.6 Blood Gas HCO3 39 mmol/L Blood Gas Base Excess 12.3 mmol/L Blood Gas Oxygen Saturation 94 % Arterial Blood pH 7.32 Arterial Blood Partial Pressure CO2 78 mmHg Arterial Blood Partial Pressure O2 85 mmHg Arterial Blood Oxygen Content 17.0 Vol % Arterial Blood Carboxyhemoglobin 1.7 % Arterial Blood Methemoglobin 1.1 % Blood Gas Hemoglobin 12.9 G/DL Oxygen Delivery Device BIPAP 18IPAP/8EPAP Blood Gas Inspired Oxygen 45 % White Blood Count 7.8 TH/MM3 Red Blood Count 4.17 MIL/MM3 Hemoglobin 12.9 GM/DL Hematocrit 41.2 % Mean Corpuscular Volume 98.7 FL Mean Corpuscular Hemoglobin 30.9 PG Mean Corpuscular Hemoglobin Concent 31.3 % Red Cell Distribution Width 15.9 % Platelet Count 117 TH/MM3 Mean Platelet Volume 8.7 FL Neutrophils (%) (Auto) 95.3 % Lymphocytes (%) (Auto) 1.7 % Monocytes (%) (Auto) 2.9 % Eosinophils (%) (Auto) 0.0 % Basophils (%) (Auto) 0.1 % Neutrophils # (Auto) 7.4 TH/MM3 Lymphocytes # (Auto) 0.1 TH/MM3 Monocytes # (Auto) 0.2 TH/MM3 Eosinophils # (Auto) 0.0 TH/MM3 Basophils # (Auto) 0.0 TH/MM3 CBC Comment DIFF FINAL Differential Comment Blood Urea Nitrogen 24 MG/DL Creatinine 0.47 MG/DL Random Glucose 242 MG/DL Calcium Level 8.9 MG/DL Phosphorus Level 2.2 MG/DL Magnesium Level 2.0 MG/DL Sodium Level 143 MEQ/L Potassium Level 3.9 MEQ/L Chloride Level 101 MEQ/L Carbon Dioxide Level 40.1 MEQ/L Anion Gap 2 MEQ/L Estimat Glomerular Filtration Rate 140 ML/MIN Imaging Last Impressions Chest X-Ray 08/01/17 0600 Signed Impressions: Service Date/Time: Tuesday, August 01, 2017 04:06 - CONCLUSION: 1. Basilar airspace disease and small effusions which have developed since July 30. No pneumothorax. Michael Bowen MD CT Angiography 07/29/172036 Signed Impressions: Service Date/Time: June 23:57 - CONCLUSION: 1. No PE is identified. 2. The mediastinal and left supraclavicular lymphadenopathy has slightly decreased in size, as above. However, multiple enlarged lymph nodes remain present. 3. Nonacute findings include severe emphysema and coronary artery calcification. Abhinav Kraft MD Objective Remarks GENERAL: Patient is 51 yo lying in bed in NAD SKIN: Warm and dry. HEAD: Normocephalic. EYES: No scleral icterus. No injection or drainage. NECK: Supple, trachea midline. No JVD or lymphadenopathy. CARDIOVASCULAR: Regular rate and rhythm without murmurs, gallops, or rubs. RESPIRATORY: Breath sounds equal bilaterally. No accessory muscle use. GASTROINTESTINAL: Abdomen soft, non-tender, nondistended. MUSCULOSKELETAL: No cyanosis, or edema. BACK: Nontender without obvious deformity. No CVA tenderness. Neuro: No focal sensory deficits A/P Assessment and Plan 1)Acute hypercapnic resp failure 2)COPD exacerbation 3)Afib 4)Non small cell ca 5)HTN 6)Anxiety Plan Neuro: Awake and alert, avoid sedatives Pulm: Continue with oxygen keep sat >92% Bronchodilators, decrease Solumederol 40mg Q12, Will give Diamox 250mg IV x1 NIPPV PRN for resp distress. Pulm is following-Dr. Kurtz CXR today: Basilar airspace disease and small effusions CV: Monitor HR and BP keep MAP>65mmHg On Lopressor 12.5mg Q12, Cardizem CD 180mg daily, Lipitor : Monitor renal function, I/O's, electrolytes replacement per protocol Diurese with Bumex 1mg x1 GI: On Protonix 40mg daily ID: Continue with abx ( Zithromax, Zosyn)monitor for signs of infections ( fever , WBC) check sputum cx BC 07/29 Coag neg staph 1/ bottles likely contaminant BC 9 NGTD Heme: Monitor CBC Endo: SSI for glycemic control GI/DVT prophylaxis- On Protonix and Lovenox SQ respectively Level 3 Kareem Schmitz MD Aug 01, 2017 07:01
[2017-08-01] MEDS ORDERED: BUMETANIDE INJ 1 MG/4 ML VIAL IV PUSH ONE (08:00)
[2017-08-01] MEDS: SODIUM CHLORIDE 0.9% FLUSH 10 ML FLUSH SCH ×2 (09:00→22:07)
[2017-08-01] MEDS: DOCUSATE SODIUM 50 MG/SENNA 8.6 MG TAB PO SCH ×2 (09:00→22:08)
[2017-08-01] MEDS: PANTOPRAZOLE SODIUM 40 MG VIAL IV PUSH SCH (09:03)
[2017-08-01] MEDS: METOPROLOL TARTRATE 25 MG TAB PO SCH ×2 (09:05→22:08)
[2017-08-01] MEDS: BUDESONIDE-FORMOTEROL 160/4.5 MCG INHALER INH SCH ×2 (09:05→22:07)
[2017-08-01] MEDS: TIOTROPIUM BROMIDE 18 MCG INH INH SCH (09:05)
[2017-08-01] MEDS: MEGESTROL ACETATE 40 MG TAB PO SCH ×4 (09:05→22:08)
[2017-08-01] MEDS: DILTIAZEM-CD 180 MG CAP ER PO SCH (09:06)
--- NOTE | 2017-08-01 17:54 | HHI.PR ---
Subjective Remarks She is back on BIpap . FIo2 at 50 %. Seems weak and not able to swallow well. No fever. Objective Vital Signs Date Time Temp Pulse Resp B/P (MAP) Pulse Ox O2 Delivery O2 Flow Rate FiO2 08/01/17 17:05 91 55 08/01/17 14:00 96 08/01/17 12:00 96 08/01/17 12:00 97.4 91 28 159/85 (109) 92 08/01/17 10:00 96 08/01/17 08:00 98.0 98 28 155/89 (111) 98 08/01/17 08:00 96 08/01/17 07:27 90 Nasal Cannula 6.00 08/01/17 06:00 104 08/01/17 04:00 98.0 97 30 160/90 (113) 96 08/01/17 04:00 97 08/01/17 02:00 103 08/01/17 01:01 89 60 08/01/17 00:00 98.7 109 26 153/97 (115) 94 08/01/17 00:00 109 07/31/17 23:54 93 60 07/31/17 22:00 116 07/31/17 20:00 108 07/31/17 20:00 98.1 108 43 142/91 (108) 95 07/31/17 19:43 92 BiPAP 50 07/31/17 19:42 92 50 07/31/17 18:00 95 I/O 07/31/17 07/31/17 07/31/17 08/01/17 08/01/17 08/01/17 07:00 15:00 23:00 07:00 15:00 23:00 Intake Total 180 ml 720 ml 240 ml 1200 ml Output Total 400 ml 725 ml Balance -220 ml 720 ml -485 ml 1200 ml Intake Oral 180 ml 240 ml IV Total 720 ml 1200 ml Output Urine Total 400 ml 725 ml # Bowel Movements 0 Result Diagram: 08/01/1732908/01/17 033 Objective Remarks GENERAL: This is an mid aged lady in mild distress. HEAD, EYES, EARS, NOSE, THROAT: Head normocephalic. The pupils are reactive. Tongue is moist. Throat is clear. NECK: The neck is supple. No venous distention. Trachea is midline. No bruits. CHEST: Distant breath sounds with occasional coarse wheezes in the upper lung mathis.Basal crackles. H S Irregular, no Murmur. Abdomen :Soft no mass. BS + EXtr :No lesions . NO deficits. Assessment and Plan Assessment and Plan IMPRESSION: 1. Acute respiratory failure. 2. Sepsis and basilar pneumonia 3. COPD with emphysema with chronic bronchitis. 4. History of atrial fibrillation and arteriosclerotic heart disease. 5. Hypertension. 6. H/O Non Small Cell Lung Ca Plan : 1. Cont antibiotics,Zithromax, Zosyn. 2. Bipap 12/5 cm , FIO2 50 % 3. Nebs qid , duoneb. 4. Chest Xray in am 5. Cont Solumedrol 40 mg IV q12h 6. Pureed Diet. 7. CBC,BMP in am. Rolanda Kurtz MD Aug 01, 2017 17:54
[2017-08-01] MEDS: ATORVASTATIN 20 MG TAB PO SCH (22:08)
[2017-08-01] MEDS: MELATONIN 5 MG TAB PO SCH (22:08)
[2017-08-01] MEDS: MIRTAZAPINE 15 MG TAB PO SCH (22:08)
[2017-08-02] VITALS (30 sets, daily range): BP systolic 131–165; BP diastolic 86–102; PULSE 92–111; RESP 10–30; TEMP 96–98.1; O2SAT 92–96
[2017-08-02] MEDS: RESP: ALBUTEROL 2.5 MG/IPRATROPIUM 0.5 MG NEB (SCH) INH ×7 (00:06→23:52)
[2017-08-02] MEDS: ENOXAPARIN SODIUM 40 MG/0.4 ML SYRINGE SQ SCH (00:15)
[2017-08-02] MEDS: PIPERACIL-TAZO 4.5 GM PREMIX 100 ML IV SCH ×4 (03:05→20:41)
[2017-08-02] MEDS: CHLORHEXIDINE GLUCONATE 2 % 1 PACK (2 CLOTHS) TOP SCH (03:59)
[2017-08-02] MEDS: MORPHINE SULFATE 4 MG/ML INJ IV PRN ×2 (04:00→08:24)
[2017-08-02] MEDS: INSULIN NovoLIN REGULAR SUPPLEMENTAL SCALE SQ SCH ×6 (04:00→20:00)
[2017-08-02 04:50] LABS: AUTOMATED NEUTROPHIL # 8.1 TH/MM3 (1.8-7.7); BASOPHIL % 0.1 % (0.0-2.0); HEMO FLAGS DIFF FINAL; LYMPH % 1.3 % (9.0-44.0); LYMPHOCYTE # 0.1 TH/MM3 (1.0-4.8); MEAN CELL VOLUME 97.9 FL (80.0-100.0); MEAN CORPUSCULAR HEMOGLOBIN 30.7 PG (27.0-34.0); MEAN CORPUSCULAR HGB CONC 31.4 % (32.0-36.0); MONO % 2.9 % (0.0-8.0); NEUT % 95.7 % (16.0-70.0); PLATELET COUNT 119 TH/MM3 (150-450); RED BLOOD COUNT 4.39 MIL/MM3 (4.00-5.30); RED CELL DISTRIBUTION WIDTH 15.6 % (11.6-17.2); WHITE BLOOD COUNT 8.5 TH/MM3 (4.0-11.0)
[2017-08-02 05:17] LABS: BICARBONATE 40.1 MEQ/L (21.0-32.0); POTASSIUM 3.3 MEQ/L (3.5-5.1)
[2017-08-02 05:48] LABS: BLOOD GAS BASE EXCESS 14.9 mmol/L (-2-2); BLOOD GAS CARBOXYHEMOGLOBIN 1.5 % (0-4); BLOOD GAS HCO3 41 mmol/L (22-26); BLOOD GAS O2 HGB SATURATION 93 % (90-100); BLOOD GAS OXYGEN CONTENT 17.3 Vol % (12.0-20.0); BLOOD GAS PCO2 68 mmHg (38-42); BLOOD GAS PO2 79 mmHg (61-120); BLOOD GAS TOTAL HGB 13.2 G/DL (12.0-16.0); TEMP CORR TO 98.6
[2017-08-02 05:49] LABS: CRITICAL VALUE YES; DRAW SITE RT RADIAL; FIO2 70 %; NUMBER OF ARTERIAL PUNCTURES 1; OXYGEN DEVICE BIPAP; STAT NO; ULNAR PULSE PRESENT; VENT SETTINGS IPAP 18/ EPAP 10
[2017-08-02] MEDS: clonazePAM 0.5 MG TAB PO SCH ×3 (06:24→20:43)
--- NOTE | 2017-08-02 07:11 | HHI.CCPN ---
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 As per chart documentation, she was saturating in the 60s but responded after 3 nebulizer treatments and 125mg solumedrol. The patient had decreased breaths sounds bilaterally and after treatment seems significantly improved. She is tired but AAOx3 and saturating at 98% on 3L nasal cannula in the urgency department. Patient uses 2 L nasal cannulae the home at her baseline. Her oncologist is Dr. Martinez. Denies any fever, chest pain, nausea, vomiting, abdominal pain, focal weakness or numbness. 07/31 No events overnight. On BIPAP 18/7 with 45% FIO2. Afebrile. 08/01 No events overnight. Off BIPAP, awake and alert afebrile. 08/02 Patient required increase O2 overnight now she is on BIPAP 18/10 with 70% FIO2. Afebrile. Objective Vital Signs Date Time Temp Pulse Resp B/P (MAP) Pulse Ox O2 Delivery O2 Flow Rate FiO2 08/02/17 04:17 93 70 08/02/17 02:00 92 08/02/17 00:00 98.1 26 150/89 (109) 08/01/17 20:06 Nasal Cannula 6.00 Result Diagram: 08/02/17 0305 08/02/17 0305 Other Results Laboratory Tests Test 08/02/17 03:05 08/02/17 05:27 White Blood Count 8.5 TH/MM3 Red Blood Count 4.39 MIL/MM3 Hemoglobin 13.5 GM/DL Hematocrit 43.0 % Mean Corpuscular Volume 97.9 FL Mean Corpuscular Hemoglobin 30.7 PG Mean Corpuscular Hemoglobin Concent 31.4 % Red Cell Distribution Width 15.6 % Platelet Count 119 TH/MM3 Mean Platelet Volume 8.8 FL Neutrophils (%) (Auto) 95.7 % Lymphocytes (%) (Auto) 1.3 % Monocytes (%) (Auto) 2.9 % Eosinophils (%) (Auto) 0.0 % Basophils (%) (Auto) 0.1 % Neutrophils # (Auto) 8.1 TH/MM3 Lymphocytes # (Auto) 0.1 TH/MM3 Monocytes # (Auto) 0.2 TH/MM3 Eosinophils # (Auto) 0.0 TH/MM3 Basophils # (Auto) 0.0 TH/MM3 CBC Comment DIFF FINAL Differential Comment Blood Urea Nitrogen 21 MG/DL Creatinine 0.36 MG/DL Random Glucose 144 MG/DL Calcium Level 9.1 MG/DL Sodium Level 142 MEQ/L Potassium Level 3.3 MEQ/L Chloride Level 96 MEQ/L Carbon Dioxide Level 40.1 MEQ/L Anion Gap 6 MEQ/L Estimat Glomerular Filtration Rate 190 ML/MIN Blood Gas Puncture Site RT RADIAL Blood Gas Patient Temperature 98.6 Blood Gas HCO3 41 mmol/L Blood Gas Base Excess 14.9 mmol/L Blood Gas Oxygen Saturation 93 % Arterial Blood pH 7.40 Arterial Blood Partial Pressure CO2 68 mmHg Arterial Blood Partial Pressure O2 79 mmHg Arterial Blood Oxygen Content 17.3 Vol % Arterial Blood Carboxyhemoglobin 1.5 % Arterial Blood Methemoglobin 1.0 % Blood Gas Hemoglobin 13.2 G/DL Oxygen Delivery Device BIPAP Blood Gas Ventilator Setting IPAP 18/ EPAP 10 Blood Gas Inspired Oxygen 70 % Imaging Last Impressions Chest X-Ray 08/01/17 0600 Signed Impressions: Service Date/Time: Tuesday, August 01, 2017 04:06 - CONCLUSION: 1. Basilar airspace disease and small effusions which have developed since July 30. No pneumothorax. Michael Bowen MD CT Angiography 07/29/172036 Signed Impressions: Service Date/Time: June 23:57 - CONCLUSION: 1. No PE is identified. 2. The mediastinal and left supraclavicular lymphadenopathy has slightly decreased in size, as above. However, multiple enlarged lymph nodes remain present. 3. Nonacute findings include severe emphysema and coronary artery calcification. Abhinav Kraft MD Objective Remarks GENERAL: Patient is 51 yo lying in bed in NAD SKIN: Warm and dry. HEAD: Normocephalic. EYES: No scleral icterus. No injection or drainage. NECK: Supple, trachea midline. No JVD or lymphadenopathy. CARDIOVASCULAR: Tachycardic without murmurs, gallops, or rubs. RESPIRATORY: Breath sounds equal bilaterally. No accessory muscle use. GASTROINTESTINAL: Abdomen soft, non-tender, nondistended. MUSCULOSKELETAL: No cyanosis, or edema. BACK: Nontender without obvious deformity. No CVA tenderness. Neuro: No focal sensory deficits A/P Assessment and Plan 1)Acute hypercapnic resp failure 2)COPD exacerbation 3)Afib 4)Non small cell ca 5)HTN 6)Anxiety Plan Neuro: Awake and alert, avoid sedatives Pulm: Continue with oxygen keep sat >92% Bronchodilators Solumederol 40mg Q12, Will give Diamox 250mg IV x1 NIPPV PRN for resp distress. check CXR Pulm is following-Dr. Kurtz CXR today: Basilar airspace disease and small effusions CV: Monitor HR and BP keep MAP>65mmHg Increase Lopressor 25mg Q12, Cardizem CD 180mg daily, Lipitor : Monitor renal function, I/O's, electrolytes replacement per protocol Diurese with Bumex 1mg x1. will need K replacement today GI: On Protonix 40mg daily ID: Continue with abx ( Zithromax, Zosyn)monitor for signs of infections ( fever , WBC) check sputum cx BC 07/29 Coag neg staph 12/02 bottles likely contaminant BC 07/31 NGTD Heme: Monitor CBC, consult Oncology-Dr. Martinez- patient is on palliative chemo. Endo: SSI for glycemic control GI/DVT prophylaxis- On Protonix and Lovenox SQ respectively Palliative care eval to asses with goals of care Level 3 Kareem Schmitz MD Aug 02, 2017 07:11
[2017-08-02] MEDS ORDERED: BUMETANIDE INJ 1 MG/4 ML VIAL IV PUSH ONE (08:00)
[2017-08-02] MEDS: TIOTROPIUM BROMIDE 18 MCG INH INH SCH (08:02)
[2017-08-02] MEDS: PANTOPRAZOLE SODIUM 40 MG VIAL IV PUSH SCH (08:02)
[2017-08-02] MEDS: SODIUM CHLORIDE 0.9% FLUSH 10 ML FLUSH SCH ×2 (08:02→20:42)
[2017-08-02] MEDS: BUDESONIDE-FORMOTEROL 160/4.5 MCG INHALER INH SCH ×2 (08:03→20:42)
[2017-08-02] MEDS: methylPREDNISolone SOD SUCC 40 MG/1 ML VIAL IV PUSH SCH ×2 (08:03→20:42)
[2017-08-02] MEDS: MEGESTROL ACETATE 40 MG TAB PO SCH ×4 (08:04→20:43)
[2017-08-02] MEDS: DOCUSATE SODIUM 50 MG/SENNA 8.6 MG TAB PO SCH ×2 (08:04→20:43)
[2017-08-02] MEDS: METOPROLOL TARTRATE 25 MG TAB PO SCH ×2 (08:04→20:43)
[2017-08-02] MEDS: DILTIAZEM-CD 180 MG CAP ER PO SCH (08:04)
--- NOTE | 2017-08-02 08:39 | RADRPT ---
EXAM DATE/TIME: 08/02/2017 07:54 [facility] COMPARISON: CHEST SINGLE AP, August 01, 2017, 4:06. INDICATIONS : Short of breath. MEDICAL HISTORY : Carcinoma, lung. Metastatic, liver. Hypertension.COPD SURGICAL HISTORY : Tubal ligation. Power port ENCOUNTER: Subsequent ACUITY: 4 - 6 days PAIN SCORE: 0/10 LOCATION: Bilateral chest FINDINGS: Right-sided port catheter again seen. There is cardiomegaly, right lower lobe atelectasis and consoli dation and patchy airspace disease at the left base. Small effusions are suspected. Osseous structure s are intact. CONCLUSION: No significant change has occurred. Andrei Lopez MD on August 02, 2017 at 8:37 Board Certified Radiologist. This report was verified electronically.
[2017-08-02 11:51] LABS: BLOOD GAS BASE EXCESS 15.6 mmol/L (-2-2); BLOOD GAS CARBOXYHEMOGLOBIN 1.5 % (0-4); BLOOD GAS HCO3 42 mmol/L (22-26); BLOOD GAS METHEMOGLOBIN 1.1 % (0-2); BLOOD GAS O2 HGB SATURATION 90 % (90-100); BLOOD GAS PCO2 75 mmHg (38-42); BLOOD GAS PO2 70 mmHg (61-120); BLOOD GAS TOTAL HGB 14.1 G/DL (12.0-16.0); TEMP CORR TO 98.6
[2017-08-02 11:52] LABS: CRITICAL VALUE YES; DRAW SITE RT RADIAL; FIO2 65 %; NUMBER OF ARTERIAL PUNCTURES 1; OXYGEN DEVICE BIPAP; STAT NO; ULNAR PULSE PRESENT; VENT SETTINGS IPAP18/EPAP10
--- NOTE | 2017-08-02 15:29 | PD.CONS ---
Consult Service Palliative Care Consult Requested By Dr. Dale . Primary Care Physician Gisselle Hammond M.D. . Reason for Consultation a. To assist with evaluation and management of symptoms including: dyspnea b. To assist medical decision maker(s) with: better understanding of current medical conditions; weighing benefits/burdens of medical treatment options; making medical treatment decisions. . HPI History of Present Illness This 51 yo female, with a past hx of COPD, a. fib., and SC lung ca diagnosed in January 2017, is admitted for SOB and resp failure again. She has had 11 prior hospitalizations here, including 4 prior hospitalizations in 2017. In March 2017, she had resp failure and was intubated twice (and extubated). In the past couple months at home, the patient has had conversations with all of her family members concerning her goals and wishes, and she made it clear to them that she would not want to "go back on the machines to keep me alive." She had been receiving chemo, but none in the past couple months because of weakness, and the family reports she has been declining -- weaker, losing weight , loss of appetite. She now presented to the ED with more SOB, and findings included: * moderate SOB, weakness * Temp 98, P 117, RR 26 BP 136/90 * WBC 12.4, HGB 15.9 * Na 142, creat 0.54 * pH 7.26, PCO2 78 * CTA Chest = No PE, but +adenopathy * CXR in the ED = negative She was admitted, and the follow-up CXR revealed pneumonia. Her resp failure continued and she is now on BiPAP at 70% O2, and she seems to be confused. Earlier today, the patient seemed to indicate to the nurse that she would not want to be intubated. The patient seems to confused to make decisions when I am trying to talk with her. Palliative Care was consulted to assist with symptom management, and to enter into discussions with the family regarding her illnesses, the prognosis, and the benefits and burdens of the various treatment options. . Function/Cognitive Trajectory She's been weaker and more SOB in recent weeks. At home, she has been able to take just a couple steps... . Review of Systems ROS Limitations: Altered Mental Status Constitutional: COMPLAINS OF: Fatigue, Generalized weakness Endocrine: DENIES: Polyuria Eyes: DENIES: Eye inflammation Ears, nose, mouth, throat: DENIES: Epistaxis Respiratory: COMPLAINS OF: Cough, Shortness of breath Cardiovascular: COMPLAINS OF: Dyspnea on Exertion, DENIES: Chest pain, Syncope Gastrointestinal: DENIES: Bloody stools, Constipation, Diarrhea, Vomiting Genitourinary: DENIES: Hematuria Musculoskeletal: COMPLAINS OF: Joint pain, Muscle aches Integumentary: DENIES: Rash Hematologic/Lymphatics: DENIES: Lymphadenopathy Immunologic/Allergic: DENIES: Urticaria Neurologic: DENIES: Headache, Seizures Psychiatric: COMPLAINS OF: Confusion, Depression, DENIES: Hallucinations, Agitation Past Family Social History Coded Allergies: diazepam (Unverified Allergy, Severe, HIVES, 07/29/17) Past Medical History * Respiratory failure, hypercapneic/hypoxic * Pneumonia, sepsis * SC Lung Cancer, dx January 2017 * COPD * A. Fib * HTN * anxiety * nephrolithiasis * HLD . Past Surgical History * BTL * hand surgery * Port, R chest * Liver Bx . Reported Medications Reported Meds & Active Scripts Active Prednisone 20 Mg Tab 20 Mg PO BID 30 Days Pantoprazole (Pantoprazole Sodium) 40 Mg Tab 40 Mg PO DAILY 30 Days Mirtazapine 15 Mg Tab 15 Mg PO HS 30 Days Metoprolol Tartrate 25 Mg Tab 12.5 Mg PO Q12HR 30 Days Dok (Docusate Sodium) 100 Mg Cap 100 Mg PO BID 30 Days Klonopin (Clonazepam) 0.5 Mg Tab 0.5 Mg PO Q8HR Gnp Melatonin Maximum Str (Melatonin) 5 Mg Tab 5 Mg PO HS 30 Days Cardizem CD 24 HR (Diltiazem CD 24 HR) 180 Mg Caper 180 Mg PO DAILY 30 Days Symbicort Inh (Budesonide/Formoterol Fumarate) 160-4.5 Mcg/Act Aero 2 Puff INH Q12HR 30 Days Lipitor (Atorvastatin Calcium) 20 Mg Tab 20 Mg PO HS Atrovent HFA 12.9 GM Inh (Ipratropium Avenel) 17 Mcg/Act Aer 2 Puff INH QID Spiriva Handihaler (Tiotropium Inh) 18 Mcg Cap 18 Mcg INH DAILY 1 capsule = 18 mcg Reported Megestrol (Megestrol Acetate) 40 Mg Tab 40 Mg PO QID . Current Medications Medications (Trade) Dose Ordered Sig/Rossana Route Start Time Stop Time Status Last Admin (Lipitor) 20 mg HS PO 07/30/17 21:00 08/01/17 22:08 (Symbicort 160-4.5 Inh) 2 puff Q12HR INH 07/30/17 09:00 08/01/17 22:07 (KlonoPIN) 0.5 mg Q8HR PO 07/30/17 06:00 08/02/17 06:24 (Cardizem Cd) 180 mg DAILY PO 07/30/17 09:00 08/02/17 08:04 (Megace) 40 mg QID PO 07/30/17 09:00 08/02/17 08:04 (Melatonin) 5 mg HS PO 07/30/17 21:00 08/01/17 22:08 (Remeron) 15 mg HS PO 07/30/17 21:00 08/01/17 22:08 (Spiriva Inh) 18 mcg DAILY INH 07/30/17 09:00 08/01/17 09:05 (NS Flush) 2 ml UNSCH PRN .XX 07/30/17 00:30 (NS Flush) 2 ml BID .XX 07/30/17 09:00 08/02/17 08:02 (Tylenol) 650 mg Q6H PRN PO 07/30/17 00:30 (Morphine Inj) 2 mg Q2H PRN IV 07/30/17 00:30 08/02/17 08:24 (Zofran Inj) 4 mg Q6H PRN IV 07/30/17 00:30 08/02/17 04:00 (Ambien) 5 mg HS PRN PO 07/30/17 00:30 (Duoneb Neb) 1 ampule Q4HR NEB INH 07/30/17 04:00 08/02/17 12:08 (Duoneb Neb) 1 ampule Q2HR NEB PRN INH 07/30/17 00:30 (Lovenox Inj) 40 mg Q24H SQ 07/30/17 01:00 08/02/17 00:15 Miscellaneous Information 1 Q361D XX 07/30/17 00:30 07/30/17 02:00 (Chlorhexidine 2% Cloth) 3 pack Taper DAILY@04 TOP 07/30/17 04:00 07/26/18 03:59 08/02/17 03:59 (Chlorhexidine 2% Cloth) 3 pack UNSCH PRN TOP 07/30/17 00:30 (Agustina-Colace) 1 tab BID PO 07/30/17 09:00 08/02/17 08:04 (Milk Of Magnesia Liq) 30 ml Q12H PRN PO 07/30/17 00:30 (Senokot) 17.2 mg Q12H PRN PO 07/30/17 00:30 (Dulcolax Supp) 10 mg DAILY PRN RECTAL 07/30/17 00:30 (Lactulose Liq) 30 ml DAILY PRN PO 07/30/17 00:30 Piperacillin Sod/ Tazobactam Sod 100 ml @ 200 mls/hr Q6H IV 07/30/17 02:00 08/02/17 13:07 Azithromycin 500 mg/Sodium Chloride 250 ml @ 250 mls/hr Q24H IV 07/30/17 23:00 08/01/17 22:09 (Pill Splitter) 1 ea UNSCH PRN OTHER 07/30/17 00:30 (D50w (Vial) Inj) 50 ml UNSCH PRN IV 07/30/17 07:15 (Glucagon Inj) 1 mg UNSCH PRN OTHER 07/30/17 07:15 (NovoLIN R SUPPLEMENTAL SCALE) 1 Q4H SQ 07/30/17 08:00 08/02/17 08:00 (Protonix Inj) 40 mg Q24H IV PUSH 07/30/17 08:00 08/02/17 08:02 Potassium Chloride 100 ml @ 50 mls/hr Q2H PRN IV 07/30/17 07:15 07/31/17 08:57 Potassium Chloride 100 ml @ 50 mls/hr Q2H PRN IV 07/30/17 07:15 (K-Lyte Cl Eff) 50 meq UNSCH PRN PO 07/30/17 07:15 Potassium Chloride 100 ml @ 25 mls/hr UNSCH PRN IV 07/30/17 07:15 08/02/17 08:01 Potassium Chloride 100 ml @ 50 mls/hr Q2H PRN IV 07/30/17 07:15 Magnesium Sulfate 4 gm/Sodium Chloride 100 ml @ 50 mls/hr UNSCH PRN IV 07/30/17 07:15 (Mag-Ox) 800 mg UNSCH PRN PO 07/30/17 07:15 Magnesium Sulfate 2 gm/Sodium Chloride 100 ml @ 50 mls/hr UNSCH PRN IV 07/30/17 07:15 (K-Phos) 2,000 mg Q4H PRN PO 07/30/17 08:00 Sodium Phosphate 30 mmol/Sodium Chloride 250 ml @ 42 mls/hr UNSCH PRN IV 07/30/17 07:15 (K-Phos) 2,000 mg UNSCH PRN PO/TUBE 07/30/17 07:15 Potassium Phosphate 30 mmol/ Sodium Chloride 260 ml @ 42 mls/hr UNSCH PRN IV 07/30/17 07:15 (SoluMEDROL INJ) 40 mg Q12HR IV PUSH 08/01/17 21:00 08/02/17 08:03 (Lopressor) 25 mg Q12HR PO 08/02/17 09:00 08/02/17 08:04 Family History Mother age 55 of COPD, and father at age 56 of renal cancer. A sister has COPD. . Substance Use Tobacco: smoker for many years Alcohol: none Prescription med abuse: nonw Illicits: occasional marijuana "for appetite" . Psychosocial History Originally from [place], has lived here for many years, recently living with a daughter. Two sisters and a brother live locally, as well as all 4 of her children (ages 23-31). several years ago. . Spiritual/Cultural Factors Mandaeism. 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 , Health Care Surrogate: Copy in medical record Health Care Surrogate(s): she designated her sister Yessenia in March 2017 . Today's verbally stated goals: Pt is confused and on BiPAP. Family/friends goals: The patient's family including her sister/HCS Yessenia report that the patient made it clear to them that she would not want to be kept alive on machines, and that she would want to focus to transition to comfort. They want to initiate DNR status at this time, and they are likely going to want to transition completely to comfort care only in the upcoming days, including the removal of the BiPAP. . Ethical and Legal Issues There are no ethical issues that would impact her care or decision-making at this time. The patient is confused, has hypercapnia and profound weakness, and does not seem to be capacitated to make decisions at this time. She has previously designated her sister Yessenia as healthcare surrogate, and the patient's 4 children are participating in discussions with Yessenia with respect to their own feelings and wishes.. . Physical Exam Vital Signs Date Time Temp Pulse Resp B/P (MAP) Pulse Ox O2 Delivery O2 Flow Rate FiO2 08/02/17 13:53 95 70 08/02/17 12:00 104 08/02/17 12:00 96.4 104 12 142/89 (106) 92 08/02/17 11:00 101 12 131/86 (101) 92 08/02/17 10:41 92 65 08/02/17 10:00 101 08/02/17 10:00 101 10 135/89 (104) 93 08/02/17 09:00 102 11 140/92 (108) 95 08/02/17 08:29 10 08/02/17 08:00 102 08/02/17 08:00 97.0 102 19 160/97 (118) 96 08/02/17 07:34 93 BiPAP 70 08/02/17 07:24 93 70 08/02/17 07:00 103 21 165/94 (117) 92 08/02/17 06:00 100 08/02/17 06:00 100 18 154/96 (115) 95 08/02/17 05:00 96 18 133/88 (103) 94 08/02/17 04:17 93 70 08/02/17 04:00 97.1 99 30 148/102 (117) 92 08/02/17 04:00 99 08/02/17 03:17 96 70 08/02/17 02:47 94 100 08/02/17 02:00 92 08/02/17 00:00 101 08/02/17 00:00 98.1 101 26 150/89 (109) 94 08/01/17 22:00 112 08/01/17 20:06 95 Nasal Cannula 6.00 08/01/17 20:00 98 08/01/17 20:00 98.1 98 31 151/89 (109) 95 08/01/17 18:00 96 08/01/17 17:05 91 55 08/01/17 16:00 98.0 101 28 152/91 (111) 88 08/01/17 16:00 96 08/02/17 08/03/17 19:00 07:00 Intake Total 100 ml Output Total 625 ml Balance -525 ml IV Total 100 ml Output Urine Total 625 ml Exam CONSTITUTIONAL/GENERAL: This is a weak patient in the C on BiPAP, in mild respiratory distress. TUBES/LINES/DRAINS: BiPAP, Reddy, IVs SKIN: No jaundice, rashes, or lesions. Ecchymoses on upper extremities. No wounds seen anteriorly. Skin temperature appropriate. Not diaphoretic. HEAD: Atraumatic. Normocephalic. EYES: Pupils equal and round and reactive. Extraocular motions intact. No scleral icterus. No injection or drainage. Fundi not examined. ENT: Hearing grossly normal. Nose without bleeding or purulent drainage. NECK: Trachea midline. Supple, nontender. No palpable thyroid enlargement or nodularity. CARDIOVASCULAR: Regular rate and rhythm without murmurs, gallops, or rubs. No JVD. Peripheral pulses symmetric. RESPIRATORY/CHEST: Symmetric, mildly labored respirations. Scattered rhonchi, a few rales at the bases. GASTROINTESTINAL: Abdomen soft, non-tender, nondistended. No hepato-splenomegaly , or palpable masses. No guarding. Bowel sounds present. GENITOURINARY: Without palpable bladder distension. Reddy catheter in place. MUSCULOSKELETAL: Extremities without clubbing, cyanosis, or edema. No joint tenderness or effusion noted. No calf tenderness. No mottling or clubbing. LYMPHATICS: No palpable cervical or supraclavicular adenopathy. NEUROLOGICAL: Somewhat lethargic, confused, moves all 4 extremities, intermittently follows simple commands PSYCHIATRIC: Was restless earlier, but not at this time . Diagnostic Tests Laboratory Laboratory Tests Test 07/31/17 04:05 07/31/17 08:36 08/01/17 03:30 08/02/17 03:05 White Blood Count 6.8 TH/MM3 (4.0-11.0) 7.8 TH/MM3 (4.0-11.0) 8.5 TH/MM3 (4.0-11.0) Red Blood Count 4.10 MIL/MM3 (4.00-5.30) 4.17 MIL/MM3 (4.00-5.30) 4.39 MIL/MM3 (4.00-5.30) Hemoglobin 12.9 GM/DL (11.6-15.3) 12.9 GM/DL (11.6-15.3) 13.5 GM/DL (11.6-15.3) Hematocrit 40.5 % (35.0-46.0) 41.2 % (35.0-46.0) 43.0 % (35.0-46.0) Mean Corpuscular Volume 98.7 FL (80.0-100.0) 98.7 FL (80.0-100.0) 97.9 FL (80.0-100.0) Mean Corpuscular Hemoglobin 31.5 PG (27.0-34.0) 30.9 PG (27.0-34.0) 30.7 PG (27.0-34.0) Mean Corpuscular Hemoglobin Concent 31.9 % (32.0-36.0) 31.3 % (32.0-36.0) 31.4 % (32.0-36.0) Red Cell Distribution Width 16.0 % (11.6-17.2) 15.9 % (11.6-17.2) 15.6 % (11.6-17.2) Platelet Count 112 TH/MM3 (150-450) 117 TH/MM3 (150-450) 119 TH/MM3 (150-450) Mean Platelet Volume 9.5 FL (7.0-11.0) 8.7 FL (7.0-11.0) 8.8 FL (7.0-11.0) Neutrophils (%) (Auto) 94.7 % (16.0-70.0) 95.3 % (16.0-70.0) 95.7 % (16.0-70.0) Lymphocytes (%) (Auto) 2.0 % (9.0-44.0) 1.7 % (9.0-44.0) 1.3 % (9.0-44.0) Monocytes (%) (Auto) 3.2 % (0.0-8.0) 2.9 % (0.0-8.0) 2.9 % (0.0-8.0) Eosinophils (%) (Auto) 0.0 % (0.0-4.0) 0.0 % (0.0-4.0) 0.0 % (0.0-4.0) Basophils (%) (Auto) 0.1 % (0.0-2.0) 0.1 % (0.0-2.0) 0.1 % (0.0-2.0) Neutrophils # (Auto) 6.4 TH/MM3 (1.8-7.7) 7.4 TH/MM3 (1.8-7.7) 8.1 TH/MM3 (1.8-7.7) Lymphocytes # (Auto) 0.1 TH/MM3 (1.0-4.8) 0.1 TH/MM3 (1.0-4.8) 0.1 TH/MM3 (1.0-4.8) Monocytes # (Auto) 0.2 TH/MM3 (0-0.9) 0.2 TH/MM3 (0-0.9) 0.2 TH/MM3 (0-0.9) Eosinophils # (Auto) 0.0 TH/MM3 (0-0.4) 0.0 TH/MM3 (0-0.4) 0.0 TH/MM3 (0-0.4) Basophils # (Auto) 0.0 TH/MM3 (0-0.2) 0.0 TH/MM3 (0-0.2) 0.0 TH/MM3 (0-0.2) CBC Comment DIFF FINAL DIFF FINAL DIFF FINAL Differential Comment Blood Urea Nitrogen 22 MG/DL (7-18) 24 MG/DL (7-18) 21 MG/DL (7-18) Creatinine 0.40 MG/DL (0.50-1.00) 0.47 MG/DL (0.50-1.00) 0.36 MG/DL (0.50-1.00) Random Glucose 178 MG/DL (74-106) 242 MG/DL (74-106) 144 MG/DL (74-106) Total Protein 5.3 GM/DL (6.4-8.2) Albumin 2.6 GM/DL (3.4-5.0) Calcium Level 9.0 MG/DL (8.5-10.1) 8.9 MG/DL (8.5-10.1) 9.1 MG/DL (8.5-10.1) Phosphorus Level 2.5 MG/DL (2.5-4.9) 2.2 MG/DL (2.5-4.9) 2.7 MG/DL (2.5-4.9) Magnesium Level 2.0 MG/DL (1.5-2.5) 2.0 MG/DL (1.5-2.5) Alkaline Phosphatase 55 U/L (45-117) Aspartate Amino Transf (AST/SGOT) 11 U/L (15-37) Alanine Aminotransferase (ALT/SGPT) 21 U/L (10-53) Total Bilirubin 0.2 MG/DL (0.2-1.0) Sodium Level 144 MEQ/L (136-145) 143 MEQ/L (136-145) 142 MEQ/L (136-145) Potassium Level 3.1 MEQ/L (3.5-5.1) 3.9 MEQ/L (3.5-5.1) 3.3 MEQ/L (3.5-5.1) Chloride Level 102 MEQ/L (98-107) 101 MEQ/L (98-107) 96 MEQ/L (98-107) Carbon Dioxide Level 41.1 MEQ/L (21.0-32.0) 40.1 MEQ/L (21.0-32.0) 40.1 MEQ/L (21.0-32.0) Anion Gap 1 MEQ/L (5-15) 2 MEQ/L (5-15) 6 MEQ/L (5-15) Estimat Glomerular Filtration Rate 168 ML/MIN (>89) 140 ML/MIN (>89) 190 ML/MIN (>89) Blood Gas Puncture Site RT RADIAL Blood Gas Patient Temperature 98.6 Blood Gas HCO3 39 mmol/L (22-26) Blood Gas Base Excess 12.3 mmol/L (-2-2) Blood Gas Oxygen Saturation 94 % (90-100) Arterial Blood pH 7.32 (7.380-7.420) Arterial Blood Partial Pressure CO2 78 mmHg (38-42) Arterial Blood Partial Pressure O2 85 mmHg (61-120) Arterial Blood Oxygen Content 17.0 Vol % (12.0-20.0) Arterial Blood Carboxyhemoglobin 1.7 % (0-4) Arterial Blood Methemoglobin 1.1 % (0-2) Blood Gas Hemoglobin 12.9 G/DL (12.0-16.0) Oxygen Delivery Device BIPAP 18IPAP/8EPAP Blood Gas Inspired Oxygen 45 % Test 08/02/17 05:27 08/02/17 11:33 Blood Gas Puncture Site RT RADIAL RT RADIAL Blood Gas Patient Temperature 98.6 98.6 Blood Gas HCO3 41 mmol/L (22-26) 42 mmol/L (22-26) Blood Gas Base Excess 14.9 mmol/L (-2-2) 15.6 mmol/L (-2-2) Blood Gas Oxygen Saturation 93 % (90-100) 90 % (90-100) Arterial Blood pH 7.40 (7.380-7.420) 7.37 (7.380-7.420) Arterial Blood Partial Pressure CO2 68 mmHg (38-42) 75 mmHg (38-42) Arterial Blood Partial Pressure O2 79 mmHg (61-120) 70 mmHg (61-120) Arterial Blood Oxygen Content 17.3 Vol % (12.0-20.0) 18.0 Vol % (12.0-20.0) Arterial Blood Carboxyhemoglobin 1.5 % (0-4) 1.5 % (0-4) Arterial Blood Methemoglobin 1.0 % (0-2) 1.1 % (0-2) Blood Gas Hemoglobin 13.2 G/DL (12.0-16.0) 14.1 G/DL (12.0-16.0) Oxygen Delivery Device BIPAP BIPAP Blood Gas Ventilator Setting IPAP 18/ EPAP 10 IPAP18/EPAP10 Blood Gas Inspired Oxygen 70 % 65 % Result Diagram: 08/02/17 0305 08/02/17 0305 Microbiology Microbiology Date/Time Source Procedure Growth Status 07/31/17 11:25 Blood Peripheral Aerobic Blood Culture - Preliminary NO GROWTH IN 2 DAYS Resulted 07/31/17 11:25 Blood Peripheral Anaerobic Blood Culture - Preliminary NO GROWTH IN 2 DAYS Resulted 07/31/17 11:19 Blood Peripheral Aerobic Blood Culture - Preliminary NO GROWTH IN 2 DAYS Resulted 07/31/17 11:19 Blood Peripheral Anaerobic Blood Culture - Preliminary NO GROWTH IN 2 DAYS Resulted Imaging Last Impressions Chest X-Ray 08/02/17 0000 Signed Impressions: Service Date/Time: Wednesday, August 02, 2017 07:54 - CONCLUSION: No significant change has occurred. Andrei Lopez MD CT Angiography 07/29/172036 Signed Impressions: Service Date/Time: June 23:57 - CONCLUSION: 1. No PE is identified. 2. The mediastinal and left supraclavicular lymphadenopathy has slightly decreased in size, as above. However, multiple enlarged lymph nodes remain present. 3. Nonacute findings include severe emphysema and coronary artery calcification. Abhinav Kraft MD Procedures BiPAP . Patient/Family Conference Present at Family Conference: Sister/MADDI Casas, daughter Gabby, daughter Vesta, and for part of the meeting son Wolf on the telephone. . Family Conference Time (mins): 39 Family Conference Location: Consult Room Issues Discussed: * Palliative care role, purpose, approach * Hospice care role, purpose, approach * Additional medical, psychosocial, and spiritual history * Patients general health, functional status, and cognitive changes in the months leading up to the current hospitalization * Patient/family understanding of the current medical problems * Patient/family understanding of prognosis * Patients goals of care as best understood from advance directives and/or conversations and/or values * Current medical treatment options and benefits/burdens of those options * Likely scenarios comparing ongoing aggressive care with a transition to comfort measures only * Questions answered to the best of my ability * Palliative care contact information provided The patient's family including her sister/MADDI Casas report that the patient made it clear to them that she would not want to be kept alive on machines, and that she would want to focus to transition to comfort. They want to initiate DNR status at this time, and they are likely going to want to transition completely to comfort care only in the upcoming days, including the removal of the BiPAP. . Assessment and Plan Disease Oriented Problem List: (1) respiratory failure, hypercapnic and hypoxic (2) pneumonia, sepsis (3) small cell lung cancer, metastatic, diagnosed January 2017 (stopped chemo 2 months ago) (4) COPD (5) atrial fibrillation (6) hypertension (7) anxiety (8) nephrolithiasis (9) hyperlipidemia Symptom Scale: (1) dyspnea 0-10 Scale: Unable to quantify (2) pain 0-10 Scale: Unable to quantify (3) anxiety 0-10 Scale: Unable to quantify Pertinent Non-Medical Issues Psychosocial: , 4 adult children, sister is HCS. Spiritual: Mandaeism background Legal: The patient is confused, has hypercapnia and profound weakness, and does not seem to be capacitated to make decisions at this time. She has previously designated her sister Yessenia as healthcare surrogate, and the patient' s 4 children are participating in discussions with Yessenia with respect to their own feelings and wishes.. Ethical issues impacting care: None . Important Contacts * Sister/HCS: Yessenia Prasad [phone] * Daughter: Vesta Hook, * Daughter: Gabby Rogers, * Daughter: Elva Hook, * Son: Wolf Fonseca, no phone available, daughters can get in contact with him . Prognosis The patient is terminal, likely with just hours or days to live. She is appropriate for hospice services. . Code Status: No Code Plan * DO NOT RESUSCITATE, per request of sister/HCS and the patient's daughters on * GOALS: The patient's family including her sister/HCS Yessenia report that the patient made it clear to them that she would not want to be kept alive on machines, and that she would want to focus to transition to comfort. They want to initiate DNR status at this time, and they are likely going to want to transition completely to comfort care only in the upcoming days, including the removal of the BiPAP. * DECISION-MAKING: The patient is confused, has hypercapnia and profound weakness, and does not seem to be capacitated to make decisions at this time. She has previously designated her sister Yessenia as healthcare surrogate, and the patient's 4 children are participating in discussions with Yessenia with respect to their own feelings and wishes.. * SYMPTOMS: The patient has had long-standing anxiety, and was taking clonazepam at home prior to this hospitalization. She has been unable to take the oral medicines here, and she has had adverse reactions to both Valium and lorazepam. She also has dyspnea, and I will initiate some scheduled morphine in addition to the PRN doses already available. * It is likely that the family will want to discontinue the BiPAP and focus on comfort and allow natural in the upcoming day or two. * Palliative Care will continue to follow the patient during this hospitalization. . Time Spent Total Floor Time (mins): 79 Face to Face Time (mins): 16 >50% Counseling/Coord of Care: Yes (d/w RN and with Dr. Dale) Thank you for the opportunity to participate in the care of Ms. Hook. Attestation To help prompt me to consider important information that might be impacting today's encounter and assessment, information from prior notes written by myself or my colleagues may have been "brought forward" into today's note. My signature on this note, however, is an attestation that I personally performed the exam, history, and/or decision-making noted today, and, unless otherwise indicated, the interactions with patient, family, and staff as well as the review of records all occurred today. I also attest that the listed assessment and stated plan reflect my best clinical judgment today based on the combination of historical information, prior notes, and today's exam/ interactions. When time spent is documented, it refers only to time spent today by the signer, or if indicated, combined time spent today by collaborating physician/nurse practitioner. Pat Parks MD Aug 02, 2017 15:29
[2017-08-02] MEDS: MORPHINE SULFATE 4 MG/ML INJ IV PUSH SCH ×2 (16:36→20:42)
--- NOTE | 2017-08-02 17:13 | HHI.PR ---
Subjective Remarks She is still on BIpap 18/10 and . FIo2 at 70 %. Seems weak and not able to breathe well. No fever. CXR shows basal Infiltrates Objective Vital Signs Date Time Temp Pulse Resp B/P (MAP) Pulse Ox O2 Delivery O2 Flow Rate FiO2 08/02/17 15:53 94 70 08/02/17 14:00 101 08/02/17 13:53 95 70 08/02/17 12:00 104 08/02/17 12:00 96.4 104 12 142/89 (106) 92 08/02/17 11:00 101 12 131/86 (101) 92 08/02/17 10:41 92 65 08/02/17 10:00 101 08/02/17 10:00 101 10 135/89 (104) 93 08/02/17 09:00 102 11 140/92 (108) 95 08/02/17 08:29 10 08/02/17 08:00 102 08/02/17 08:00 97.0 102 19 160/97 (118) 96 08/02/17 07:34 93 BiPAP 70 08/02/17 07:24 93 70 08/02/17 07:00 103 21 165/94 (117) 92 08/02/17 06:00 100 08/02/17 06:00 100 18 154/96 (115) 95 08/02/17 05:00 96 18 133/88 (103) 94 08/02/17 04:17 93 70 08/02/17 04:00 97.1 99 30 148/102 (117) 92 08/02/17 04:00 99 08/02/17 03:17 96 70 08/02/17 02:47 94 100 08/02/17 02:00 92 08/02/17 00:00 101 08/02/17 00:00 98.1 101 26 150/89 (109) 94 08/01/17 22:00 112 08/01/17 20:06 95 Nasal Cannula 6.00 08/01/17 20:00 98 08/01/17 20:00 98.1 98 31 151/89 (109) 95 08/01/17 18:00 96 I/O 08/01/17 08/01/17 08/01/17 08/02/17 08/02/17 08/02/17 07:00 15:00 23:00 07:00 15:00 23:00 Intake Total 240 ml 1200 ml 2206 ml 0 ml 100 ml Output Total 725 ml 3100 ml 400 ml 625 ml Balance -485 ml 1200 ml -894 ml -400 ml -525 ml Intake Oral 240 ml 120 ml 0 ml IV Total 1200 ml 2086 ml 100 ml Output Urine Total 725 ml 3100 ml 400 ml 625 ml # Bowel Movements 0 1 0 Result Diagram: 08/02/1730408/02/17 0305 Objective Remarks GENERAL: This is an mid aged lady in mild distress. HEAD, EYES, EARS, NOSE, THROAT: Head normocephalic. The pupils are reactive. Tongue is moist. Throat is clear. NECK: The neck is supple. No venous distention. Trachea is midline. No bruits. CHEST: Distant breath sounds with occasional coarse wheezes in the upper lung mathis.Basal crackles. H S Irregular, no Murmur. Abdomen :Soft no mass. BS + EXtr :No lesions . NO deficits. Assessment and Plan Assessment and Plan IMPRESSION: 1. Acute respiratory failure. 2. Sepsis and basilar pneumonia 3. COPD with emphysema with chronic bronchitis. 4. History of atrial fibrillation and arteriosclerotic heart disease. 5. Hypertension. 6. H/O Non Small Cell Lung Ca Plan : 1. Cont antibiotics,Zithromax, Zosyn. 2. Bipap 18/10cm , FIO2 70 % 3. Nebs qid , duoneb. 4. Palliative care to see 5. Solumedrol 40 mg IV q12h 6. Poor prognosis 7. CBC,BMP in am. Rolanda Kurtz MD Aug 02, 2017 17:13
[2017-08-02] MEDS: MELATONIN 5 MG TAB PO SCH (20:43)
[2017-08-02] MEDS: MIRTAZAPINE 15 MG TAB PO SCH (20:43)
[2017-08-02] MEDS: ATORVASTATIN 20 MG TAB PO SCH (20:43)
--- NOTE | 2017-08-02 22:51 | MB ---
cc: PEPE MARTINEZ M.D. DATE OF CONSULTATION 08/02/17 REASON FOR CONSULTATION Consult requested by Dr. Schmitz, rollway man, for evaluation of lung cancer. HISTORY OF PRESENT ILLNESS Chrissy is a 51-year-old unfortunate white female. She was diagnosed with small-cell lung cancer with extensive liver metastasis in January of this year. The MRI of the brain was negative. She was found to have a stage IV small cell lung cancer. She was started on palliative carboplatin and etoposide chemotherapy in February. So far she had four cycles of the chemotherapy. The last chemotherapy was on June 07. The patient was supposed to come back in 3 weeks for continuation of the chemotherapy. However, she has cancelled her appointments and have decided not to have any further chemotherapy. The patient continues to smoke cigarettes despite of extensive counseling. She has a severe COPD. She has multiple admissions to [facility]. She has been on the ventilator for exacerbation of COPD on multiple occasions. She was brought into the emergency room with severe shortness of breath. The patient's performance status has been declining. She is not eating, losing weight and she can hardly walk a couple of steps. She is now admitted to the hospital, in the Intensive Care Unit. Palliative care, Dr. Parks was consulted. Dr. Parks has discussed with the patient and the family. The patient and the family have decided comfort care. They do not want her to be on the ventilator again. The patient is currently on BiPAP, unable to give any history. According to multiple family members the patient was earlier confused but she is now improving since she is on BiPap. REVIEW OF SYSTEMS Not possible due to BiPap device. PAST MEDICAL HISTORY Anxiety disorder, atrial fibrillation, severe COPD, hypertension, kidney stones, stage IV small cell lung cancer, diagnosed in January of this year. PAST SURGICAL HISTORY Hand surgery, tubal ligation. [id number] placement. ALLERGIES VALIUM. MEDICATIONS Please see EMR. FAMILY HISTORY No family history of malignancy. SOCIAL HISTORY The patient continues to smoke cigarettes. She also drinks alcohol. PHYSICAL EXAMINATION GENERAL: This is a well-developed, ill-appearing white female who is on the BiPap device. VITAL SIGNS: Temperature 96, heart rate is 102, blood pressure is 144/90, O2 saturation 96% on BiPAP, 70% FIO2. HEENT: PERRLA, EOMI, BiPap device noted. NECK: No lymphadenopathy. LUNGS: Feeble breath sounds on both sides. The breath sounds are severely diminished with scattered wheezing. HEART: Tachycardia with no murmur. ABDOMEN: Soft, nontender. EXTREMITIES: No pedal edema. NEUROLOGY: The patient is awake, alert. Per family the patient was confused. SKIN: No significant lesions noted. ASSESSMENT 1. Small cell lung cancer with extensive liver metastasis diagnosed in January of this year . Status post four cycles of carboplatin and etoposide chemotherapy. The last chemotherapy was on June 07, almost 2 months ago. The patient has declined further chemotherapy. 2. Severe exacerbation of COPD. 3. Poor performance status. PLAN I have reviewed her available records and I have discussed with the patient's multiple family members. Unfortunately, the patient has declined further chemotherapy. Her last chemotherapy was almost 2 months ago on June 07. She was supposed to come back pain in 3 weeks from June 07 for followup and continuation of chemotherapy. However, she has cancelled her appointments. She was advised to make the followup appointment which she has declined. The patient's performance status has declined very rapidly. She is not eating, she is losing weight. She is short of breath. She hardly could walk a few steps. Given all this no further chemotherapy is indicated. The patient and the family have elected for DNR and she does not want to go on the ventilator. I think this is very appropriate given the circumstances. She has multiple admissions to [facility] and on multiple occasions she has been placed on the ventilator and subsequently was extubated successfully. But this time she does not want to go on the ventilator. She has decided for comfort care. My recommendation is to consult Hospice for best supportive care. I have asked the patient's family if they have any questions and at this time they have no further questions and they want her to be comfortable. I will consult Hospice. Thank you Dr. Schmitz for allowing me to participate in her care. Rojas Martinez MD /EO /10:07 PM /10:22 PM WISAM
[2017-08-03] VITALS (12 sets, daily range): BP systolic 128–153; BP diastolic 80–95; PULSE 85–98; RESP 11–20; TEMP 97.4–98.2; O2SAT 87–95
[2017-08-03] MEDS: MORPHINE SULFATE 4 MG/ML INJ IV PUSH SCH ×4 (00:58→12:47)
[2017-08-03] MEDS: AZITHROMYCIN INJ 500 MG in SODIUM CHLOR 0.9% 250 ML INJ 250 ML IV SCH (00:58)
[2017-08-03] MEDS: ENOXAPARIN SODIUM 40 MG/0.4 ML SYRINGE SQ SCH (00:59)
[2017-08-03] MEDS: PIPERACIL-TAZO 4.5 GM PREMIX 100 ML IV SCH ×2 (00:59→09:14)
[2017-08-03] MEDS: POTASSIUM CHLOR 20 MEQ PREMIX 100 ML IV PRN ×2 (01:48→04:43)
[2017-08-03] MEDS: CHLORHEXIDINE GLUCONATE 2 % 1 PACK (2 CLOTHS) TOP SCH (03:18)
[2017-08-03] MEDS: INSULIN NovoLIN REGULAR SUPPLEMENTAL SCALE SQ SCH ×3 (03:18→08:00)
[2017-08-03] MEDS: RESP: ALBUTEROL 2.5 MG/IPRATROPIUM 0.5 MG NEB (SCH) INH (03:58)
[2017-08-03] MEDS: clonazePAM 0.5 MG TAB PO SCH (05:18)
--- NOTE | 2017-08-03 07:14 | HHI.CCPN ---
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 As per chart documentation, she was saturating in the 60s but responded after 3 nebulizer treatments and 125mg solumedrol. The patient had decreased breaths sounds bilaterally and after treatment seems significantly improved. She is tired but AAOx3 and saturating at 98% on 3L nasal cannula in the urgency department. Patient uses 2 L nasal cannulae the home at her baseline. Her oncologist is Dr. Martinez. Denies any fever, chest pain, nausea, vomiting, abdominal pain, focal weakness or numbness. 07/31 No events overnight. On BIPAP 18/7 with 45% FIO2. Afebrile. 08/01 No events overnight. Off BIPAP, awake and alert afebrile. 08/02 Patient required increase O2 overnight now she is on BIPAP 18/10 with 70% FIO2. Afebrile. 08/03 Patient remains on BIPAP 15/10 with 80% FIO2. Palliative care met with family and she was made DNR. Hospice service consulted. Objective Vital Signs Date Time Temp Pulse Resp B/P (MAP) Pulse Ox O2 Delivery O2 Flow Rate FiO2 08/03/17 03:58 95 80 08/03/17 02:00 97 08/03/17 00:00 97.7 16 153/95 (114) 08/02/17 07:34 BiPAP 08/01/17 20:06 6.00 Result Diagram: 08/02/17 0305 08/02/17 2100 Other Results Laboratory Tests Test 08/02/17 11:33 08/02/17 21:00 Blood Gas Puncture Site RT RADIAL Blood Gas Patient Temperature 98.6 Blood Gas HCO3 42 mmol/L Blood Gas Base Excess 15.6 mmol/L Blood Gas Oxygen Saturation 90 % Arterial Blood pH 7.37 Arterial Blood Partial Pressure CO2 75 mmHg Arterial Blood Partial Pressure O2 70 mmHg Arterial Blood Oxygen Content 18.0 Vol % Arterial Blood Carboxyhemoglobin 1.5 % Arterial Blood Methemoglobin 1.1 % Blood Gas Hemoglobin 14.1 G/DL Oxygen Delivery Device BIPAP Blood Gas Ventilator Setting IPAP18/EPAP10 Blood Gas Inspired Oxygen 65 % Potassium Level 3.4 MEQ/L Imaging Last Impressions Chest X-Ray 08/02/17 0000 Signed Impressions: Service Date/Time: Wednesday, August 02, 2017 07:54 - CONCLUSION: No significant change has occurred. Andrei Lopez MD CT Angiography 07/29/172036 Signed Impressions: Service Date/Time: June 23:57 - CONCLUSION: 1. No PE is identified. 2. The mediastinal and left supraclavicular lymphadenopathy has slightly decreased in size, as above. However, multiple enlarged lymph nodes remain present. 3. Nonacute findings include severe emphysema and coronary artery calcification. Abhinav Kraft MD Objective Remarks GENERAL: Patient is 51 yo lying in bed in NAD SKIN: Warm and dry. HEAD: Normocephalic. EYES: No scleral icterus. No injection or drainage. NECK: Supple, trachea midline. No JVD or lymphadenopathy. CARDIOVASCULAR: Tachycardic without murmurs, gallops, or rubs. RESPIRATORY: Breath sounds equal bilaterally. No accessory muscle use. GASTROINTESTINAL: Abdomen soft, non-tender, nondistended. MUSCULOSKELETAL: No cyanosis, or edema. BACK: Nontender without obvious deformity. No CVA tenderness. Neuro: No focal sensory deficits A/P Assessment and Plan 1)Acute hypercapnic resp failure 2)COPD exacerbation 3)Afib 4)Non small cell ca 5)HTN 6)Anxiety Plan Neuro: Awake and alert, avoid sedatives Pulm: Continue with oxygen keep sat >92% Bronchodilators Solumederol 40mg Q12, NIPPV PRN for resp distress. Pulm is following-Dr. Kurtz CXR 08/02: Basilar airspace disease and small effusions CV: Monitor HR and BP keep MAP>65mmHg Lopressor 25mg Q12, Cardizem CD 180mg daily, Lipitor : Monitor renal function, I/O's, electrolytes replacement per protocol GI: On Protonix 40mg daily ID: Continue with abx ( Zithromax, Zosyn)monitor for signs of infections ( fever , WBC) BC 07/29 Coag neg staph 12/02 bottles likely contaminant BC 07/31 NGTD Heme: Monitor CBC, Oncology-Dr. Martinez- No further chemo due to poor performance status. Endo: SSI for glycemic control GI/DVT prophylaxis- On Protonix and Lovenox SQ respectively Palliative care is following. Patient was made DNR and Hospice service consulted Level 2 Kareem Schmitz MD Aug 03, 2017 07:14
[2017-08-03] MEDS: DILTIAZEM-CD 180 MG CAP ER PO SCH ×2 (09:00→09:16)
[2017-08-03] MEDS: PANTOPRAZOLE SODIUM 40 MG VIAL IV PUSH SCH (09:15)
[2017-08-03] MEDS: methylPREDNISolone SOD SUCC 40 MG/1 ML VIAL IV PUSH SCH (09:15)
[2017-08-03] MEDS: MEGESTROL ACETATE 40 MG TAB PO SCH (09:16)
[2017-08-03] MEDS: TIOTROPIUM BROMIDE 18 MCG INH INH SCH (09:16)
[2017-08-03] MEDS: SODIUM CHLORIDE 0.9% FLUSH 10 ML FLUSH SCH (09:16)
[2017-08-03] MEDS: BUDESONIDE-FORMOTEROL 160/4.5 MCG INHALER INH SCH (09:16)
[2017-08-03] MEDS: METOPROLOL TARTRATE 25 MG TAB PO SCH (09:16)
[2017-08-03] MEDS: DOCUSATE SODIUM 50 MG/SENNA 8.6 MG TAB PO SCH (09:16)
--- NOTE | 2017-08-03 09:44 | PD.ONC.PN ---
Subjective Subjective Remarks Afebrile overnight. Patient resting in bed on bipap. appears very fatigued and tired. waiting to see hospice. Objective Data Date Time Temp Pulse Resp B/P (MAP) Pulse Ox O2 Delivery O2 Flow Rate FiO2 08/03/17 07:42 94 80 08/03/17 06:00 88 08/03/17 04:00 85 08/03/17 04:00 98.2 85 14 131/80 (97) 95 08/03/17 03:58 95 80 08/03/17 02:00 97 08/03/17 00:00 94 08/03/17 00:00 97.7 94 16 153/95 (114) 94 08/02/17 23:56 94 70 08/02/17 22:00 100 08/02/17 21:36 94 70 08/02/17 20:00 109 08/02/17 20:00 97.5 109 17 139/91 (107) 92 08/02/17 18:00 111 08/02/17 17:00 103 10 139/94 (109) 92 08/02/17 16:41 14 08/02/17 16:00 102 08/02/17 16:00 96.0 102 14 144/90 (108) 96 08/02/17 15:53 94 70 08/02/17 15:00 105 18 152/89 (110) 96 08/02/17 14:22 100 11 143/92 (109) 95 08/02/17 14:00 101 08/02/17 14:00 101 11 94 08/02/17 13:53 95 70 08/02/17 13:00 101 10 147/90 (109) 94 08/02/17 12:00 104 08/02/17 12:00 96.4 104 12 142/89 (106) 92 08/02/17 11:00 101 12 131/86 (101) 92 08/02/17 10:41 92 65 08/02/17 10:00 101 08/02/17 10:00 101 10 135/89 (104) 93 08/03/17 08/03/17 08/03/17 07:00 15:00 23:00 Intake Total 670 ml Output Total 400 ml Balance 270 ml Result Diagram: 08/02/17 0305 08/02/17 2100 Laboratory Results Laboratory Tests Test 08/02/17 11:33 08/02/17 21:00 Blood Gas Puncture Site RT RADIAL Blood Gas Patient Temperature 98.6 Blood Gas HCO3 42 mmol/L Blood Gas Base Excess 15.6 mmol/L Blood Gas Oxygen Saturation 90 % Arterial Blood pH 7.37 Arterial Blood Partial Pressure CO2 75 mmHg Arterial Blood Partial Pressure O2 70 mmHg Arterial Blood Oxygen Content 18.0 Vol % Arterial Blood Carboxyhemoglobin 1.5 % Arterial Blood Methemoglobin 1.1 % Blood Gas Hemoglobin 14.1 G/DL Oxygen Delivery Device BIPAP Blood Gas Ventilator Setting IPAP18/EPAP10 Blood Gas Inspired Oxygen 65 % Potassium Level 3.4 MEQ/L Culture Results Microbiology Date/Time Source Procedure Growth Status 07/31/17 11:25 Blood Peripheral Aerobic Blood Culture - Preliminary NO GROWTH IN 2 DAYS Resulted 07/31/17 11:25 Blood Peripheral Anaerobic Blood Culture - Preliminary NO GROWTH IN 2 DAYS Resulted 07/31/17 11:19 Blood Peripheral Aerobic Blood Culture - Preliminary NO GROWTH IN 2 DAYS Resulted 07/31/17 11:19 Blood Peripheral Anaerobic Blood Culture - Preliminary NO GROWTH IN 2 DAYS Resulted Administered Medications Medications (Trade) Dose Ordered Sig/Rossana Route PRN Reason Start Time Stop Time Status Last Admin Dose Admin Atorvastatin Calcium (Lipitor) 20 mg HS PO 07/30/17 21:00 08/02/17 20:43 Budesonide/ Formoterol Fumarate (Symbicort 160-4.5 Inh) 2 puff Q12HR INH 07/30/17 09:00 08/03/17 09:16 Clonazepam (KlonoPIN) 0.5 mg Q8HR PO 07/30/17 06:00 08/03/17 05:18 Diltiazem HCl (Cardizem Cd) 180 mg DAILY PO 07/30/17 09:00 08/02/17 08:04 Megestrol Acetate (Megace) 40 mg QID PO 07/30/17 09:00 08/03/17 09:16 Melatonin (Melatonin) 5 mg HS PO 07/30/17 21:00 08/02/17 20:43 Mirtazapine (Remeron) 15 mg HS PO 07/30/17 21:00 08/02/17 20:43 Tiotropium [place] (Spiriva Inh) 18 mcg DAILY INH 07/30/17 09:00 08/03/17 09:16 Sodium Chloride (NS Flush) 2 ml UNSCH PRN .XX FLUSH AFTER USING IV ACCESS 07/30/17 00:30 08/03/17 09:15 Sodium Chloride (NS Flush) 2 ml BID .XX 07/30/17 09:00 08/03/17 09:16 Morphine Sulfate (Morphine Inj) 2 mg Q2H PRN IV PAIN SCALE 6 TO 10 07/30/17 00:30 08/02/17 08:24 Ondansetron HCl (Zofran Inj) 4 mg Q6H PRN IV NAUSEA OR VOMITING 07/30/17 00:30 08/02/17 04:00 Enoxaparin Sodium (Lovenox Inj) 40 mg Q24H SQ 07/30/17 01:00 08/03/17 00:59 Miscellaneous Information 1 Q361D XX 07/30/17 00:30 07/30/17 02:00 Chlorhexidine Gluconate (Chlorhexidine 2% Cloth) 3 pack Taper DAILY@04 TOP 07/30/17 04:00 07/26/18 03:59 08/02/17 03:59 Senna/Docusate Sodium (Agustina-Colace) 1 tab BID PO 07/30/17 09:00 08/03/17 09:16 Piperacillin Sod/ Tazobactam Sod 100 ml @ 200 mls/hr Q6H IV 07/30/17 02:00 08/03/17 09:14 Azithromycin 500 mg/Sodium Chloride 250 ml @ 250 mls/hr Q24H IV 07/30/17 23:00 08/03/17 00:58 Insulin Human Regular (NovoLIN R SUPPLEMENTAL SCALE) 1 Q4H SQ 07/30/17 08:00 08/03/17 08:00 Pantoprazole Sodium (Protonix Inj) 40 mg Q24H IV PUSH 07/30/17 08:00 08/03/17 09:15 Potassium Chloride 100 ml @ 50 mls/hr Q2H PRN IV For Potassium 2.8 - 3.2 mEq/L 07/30/17 07:15 07/31/17 08:57 Potassium Chloride 100 ml @ 25 mls/hr UNSCH PRN IV For Potassium 3.3 - 3.5 mEq/L 07/30/17 07:15 08/02/17 08:01 Potassium Chloride 100 ml @ 50 mls/hr Q2H PRN IV For Potassium 3.3 - 3.5 mEq/L 07/30/17 07:15 08/03/17 04:43 Methylprednisolone Sodium Succinate (SoluMEDROL INJ) 40 mg Q12HR IV PUSH 08/01/17 21:00 08/03/17 09:15 Metoprolol Tartrate (Lopressor) 25 mg Q12HR PO 08/02/17 09:00 08/03/17 09:16 Morphine Sulfate (Morphine Inj) 2 mg Q4H IV PUSH 08/02/17 17:00 08/03/17 09:15 Objective Remarks GENERAL: chronically ill appearing female supine in bed on bipap SKIN: Warm and dry. HEAD: Normocephalic. EYES: No injection or drainage. NECK: Supple, trachea midline. CARDIOVASCULAR: +S1/S2, tachy RESPIRATORY: anterior mathis with coarse rhonchi. GASTROINTESTINAL: Abdomen soft, non-tender, nondistended. EXTREMITIES: No cyanosis NEUROLOGICAL: awake but fatigued Assessment/Plan Problem List: (1) SCLC (small cell lung carcinoma) ICD Codes: C34.90 - Malignant neoplasm of unspecified part of unspecified bronchus or lung Status: Chronic Plan: 08/03: await hospice --Small cell lung cancer with extensive liver metastasis diagnosed in January 2017 --s/p 4 cycles chemotherapy --last cycle two months ago (2) Chronic obstructive pulmonary disease ICD Codes: J44.9 - Chronic obstructive pulmonary disease Status: Acute Assessment 51y/o female with metastatic lung cancer, s/p four cycles carbo/etoposide admitted with dyspnea, declining performance status, loss of appetite. h/o Anxiety disorder, atrial fibrillation, severe COPD, hypertension, kidney stones, stage IV small cell lung cancer, diagnosed in January of this year. Attending Statement Patient is lethargic on bipap awaiting Hospice consult Okay to discharge hospice when arrangements are made. No further chemotherapy Because of poor performance status The exam, history, and the medical decision-making described in the above note were completed with the assistance of the mid-level provider. I reviewed and agree with the findings presented. I attest that I had a [id number] encounter with the patient on the same day, and personally performed and documented my assessment and findings in the medical record. Margo Wan Aug 03, 2017 09:44 Alyssa Martinez MD Aug 03, 2017 21:48
--- NOTE | 2017-08-03 10:10 | HHI.HCPN ---
Reason for visit a. To assist with evaluation and management of symptoms including: dyspnea b. To assist medical decision maker(s) with: better understanding of current medical conditions; weighing benefits/burdens of medical treatment options; making medical treatment decisions. . Subjective/Interval History INTERVAL NOTE: The patient remains lethargic. She seemed to be breathing a little easier this morning and the BiPAP has been discontinued the past hour. Her O2 sat remains 89%, and her lethargy seems about the same. She has been getting some scheduled morphine through the night and this morning, and that seems to have helped the dyspnea. Her oncologist saw her last evening and confirms that there is no further aggressive treatment available because of her poor performance status. . Family/friend interactions Discussed with her sister Yessenia by telephone. She and all the children are ready for transition to hospice services now, and a move to [facility] end-[facility]-life care. . Advance Directives Health Care Surrogate: Copy in medical record Advance Directive Specifics Health Care Surrogate(s): she designated her sister Yessenia in March 2017 . Significant change in goals: Transition to comfort care, hospice services, moved to the [facility] . Objective Vital Signs Date Time Temp Pulse Resp B/P (MAP) Pulse Ox O2 Delivery O2 Flow Rate FiO2 08/03/17 07:42 94 80 08/03/17 06:00 88 08/03/17 04:00 85 08/03/17 04:00 98.2 85 14 131/80 (97) 95 08/03/17 03:58 95 80 08/03/17 02:00 97 08/03/17 00:00 94 08/03/17 00:00 97.7 94 16 153/95 (114) 94 08/02/17 23:56 94 70 08/02/17 22:00 100 08/02/17 21:36 94 70 08/02/17 20:00 109 08/02/17 20:00 97.5 109 17 139/91 (107) 92 08/02/17 18:00 111 08/02/17 17:00 103 10 139/94 (109) 92 08/02/17 16:41 14 08/02/17 16:00 102 08/02/17 16:00 96.0 102 14 144/90 (108) 96 08/02/17 15:53 94 70 08/02/17 15:00 105 18 152/89 (110) 96 08/02/17 14:22 100 11 143/92 (109) 95 08/02/17 14:00 101 08/02/17 14:00 101 11 94 08/02/17 13:53 95 70 08/02/17 13:00 101 10 147/90 (109) 94 08/02/17 12:00 104 08/02/17 12:00 96.4 104 12 142/89 (106) 92 08/02/17 11:00 101 12 131/86 (101) 92 08/02/17 10:41 92 65 Intake & Output 08/03/17 08/03/17 07:00 19:00 Intake Total 670 ml Output Total 400 ml Balance 270 ml Intake Oral 120 ml IV Total 550 ml Output Urine Total 400 ml # Bowel Movements 0 Physical Exam CONSTITUTIONAL/GENERAL: This is a weak patient in the C on BiPAP, in mild respiratory distress. ENT. Nose without bleeding or purulent drainage. NECK: Trachea midline. Supple, nontender. No palpable thyroid enlargement or nodularity. CARDIOVASCULAR: Regular rate and rhythm without murmurs, gallops, or rubs. No JVD. Peripheral pulses symmetric. RESPIRATORY/CHEST: Symmetric, mildly labored respirations. Scattered rhonchi, a few rales at the bases. GASTROINTESTINAL: Abdomen soft, non-tender, nondistended. No hepato-splenomegaly , or palpable masses. No guarding. Bowel sounds present. GENITOURINARY: Without palpable bladder distension. Reddy catheter in place. MUSCULOSKELETAL: Extremities without clubbing, cyanosis, or edema. No joint tenderness or effusion noted. No calf tenderness. No mottling or clubbing. NEUROLOGICAL: Lethargic, not following simple commands . Diagnostic Tests Laboratory Laboratory Tests Test 08/01/17 03:30 08/02/17 03:05 08/02/17 05:27 08/02/17 11:33 White Blood Count 7.8 TH/MM3 (4.0-11.0) 8.5 TH/MM3 (4.0-11.0) Red Blood Count 4.17 MIL/MM3 (4.00-5.30) 4.39 MIL/MM3 (4.00-5.30) Hemoglobin 12.9 GM/DL (11.6-15.3) 13.5 GM/DL (11.6-15.3) Hematocrit 41.2 % (35.0-46.0) 43.0 % (35.0-46.0) Mean Corpuscular Volume 98.7 FL (80.0-100.0) 97.9 FL (80.0-100.0) Mean Corpuscular Hemoglobin 30.9 PG (27.0-34.0) 30.7 PG (27.0-34.0) Mean Corpuscular Hemoglobin Concent 31.3 % (32.0-36.0) 31.4 % (32.0-36.0) Red Cell Distribution Width 15.9 % (11.6-17.2) 15.6 % (11.6-17.2) Platelet Count 117 TH/MM3 (150-450) 119 TH/MM3 (150-450) Mean Platelet Volume 8.7 FL (7.0-11.0) 8.8 FL (7.0-11.0) Neutrophils (%) (Auto) 95.3 % (16.0-70.0) 95.7 % (16.0-70.0) Lymphocytes (%) (Auto) 1.7 % (9.0-44.0) 1.3 % (9.0-44.0) Monocytes (%) (Auto) 2.9 % (0.0-8.0) 2.9 % (0.0-8.0) Eosinophils (%) (Auto) 0.0 % (0.0-4.0) 0.0 % (0.0-4.0) Basophils (%) (Auto) 0.1 % (0.0-2.0) 0.1 % (0.0-2.0) Neutrophils # (Auto) 7.4 TH/MM3 (1.8-7.7) 8.1 TH/MM3 (1.8-7.7) Lymphocytes # (Auto) 0.1 TH/MM3 (1.0-4.8) 0.1 TH/MM3 (1.0-4.8) Monocytes # (Auto) 0.2 TH/MM3 (0-0.9) 0.2 TH/MM3 (0-0.9) Eosinophils # (Auto) 0.0 TH/MM3 (0-0.4) 0.0 TH/MM3 (0-0.4) Basophils # (Auto) 0.0 TH/MM3 (0-0.2) 0.0 TH/MM3 (0-0.2) CBC Comment DIFF FINAL DIFF FINAL Differential Comment Blood Urea Nitrogen 24 MG/DL (7-18) 21 MG/DL (7-18) Creatinine 0.47 MG/DL (0.50-1.00) 0.36 MG/DL (0.50-1.00) Random Glucose 242 MG/DL (74-106) 144 MG/DL (74-106) Calcium Level 8.9 MG/DL (8.5-10.1) 9.1 MG/DL (8.5-10.1) Phosphorus Level 2.2 MG/DL (2.5-4.9) 2.7 MG/DL (2.5-4.9) Magnesium Level 2.0 MG/DL (1.5-2.5) Sodium Level 143 MEQ/L (136-145) 142 MEQ/L (136-145) Potassium Level 3.9 MEQ/L (3.5-5.1) 3.3 MEQ/L (3.5-5.1) Chloride Level 101 MEQ/L (98-107) 96 MEQ/L (98-107) Carbon Dioxide Level 40.1 MEQ/L (21.0-32.0) 40.1 MEQ/L (21.0-32.0) Anion Gap 2 MEQ/L (5-15) 6 MEQ/L (5-15) Estimat Glomerular Filtration Rate 140 ML/MIN (>89) 190 ML/MIN (>89) Blood Gas Puncture Site RT RADIAL RT RADIAL Blood Gas Patient Temperature 98.6 98.6 Blood Gas HCO3 41 mmol/L (22-26) 42 mmol/L (22-26) Blood Gas Base Excess 14.9 mmol/L (-2-2) 15.6 mmol/L (-2-2) Blood Gas Oxygen Saturation 93 % (90-100) 90 % (90-100) Arterial Blood pH 7.40 (7.380-7.420) 7.37 (7.380-7.420) Arterial Blood Partial Pressure CO2 68 mmHg (38-42) 75 mmHg (38-42) Arterial Blood Partial Pressure O2 79 mmHg (61-120) 70 mmHg (61-120) Arterial Blood Oxygen Content 17.3 Vol % (12.0-20.0) 18.0 Vol % (12.0-20.0) Arterial Blood Carboxyhemoglobin 1.5 % (0-4) 1.5 % (0-4) Arterial Blood Methemoglobin 1.0 % (0-2) 1.1 % (0-2) Blood Gas Hemoglobin 13.2 G/DL (12.0-16.0) 14.1 G/DL (12.0-16.0) Oxygen Delivery Device BIPAP BIPAP Blood Gas Ventilator Setting IPAP 18/ EPAP 10 IPAP18/EPAP10 Blood Gas Inspired Oxygen 70 % 65 % Test 08/02/17 21:00 Potassium Level 3.4 MEQ/L (3.5-5.1) Result Diagram: 08/02/17 0305 08/02/17 2100 Microbiology Microbiology Date/Time Source Procedure Growth Status 07/31/17 11:25 Blood Peripheral Aerobic Blood Culture - Preliminary NO GROWTH IN 2 DAYS Resulted 07/31/17 11:25 Blood Peripheral Anaerobic Blood Culture - Preliminary NO GROWTH IN 2 DAYS Resulted 07/31/17 11:19 Blood Peripheral Aerobic Blood Culture - Preliminary NO GROWTH IN 2 DAYS Resulted 07/31/17 11:19 Blood Peripheral Anaerobic Blood Culture - Preliminary NO GROWTH IN 2 DAYS Resulted Imaging Last Impressions Chest X-Ray 08/02/17 0000 Signed Impressions: Service Date/Time: Wednesday, August 02, 2017 07:54 - CONCLUSION: No significant change has occurred. Andrei Lopez MD CT Angiography 07/29/[id number] Signed Impressions: Service Date/Time: June 23:57 - CONCLUSION: 1. No PE is identified. 2. The mediastinal and left supraclavicular lymphadenopathy has slightly decreased in size, as above. However, multiple enlarged lymph nodes remain present. 3. Nonacute findings include severe emphysema and coronary artery calcification. Abhinav Kraft MD Procedures BiPAP . Assessment and Plan Disease Oriented Problem List: (1) respiratory failure, hypercapnic and hypoxic (2) pneumonia, sepsis (3) small cell lung cancer, metastatic, diagnosed January 2017 (stopped chemo 2 months ago) (4) COPD (5) atrial fibrillation (6) hypertension (7) anxiety (8) nephrolithiasis (9) hyperlipidemia Symptom Scale: (1) dyspnea 0-10 Scale: Unable to quantify (2) pain 0-10 Scale: Unable to quantify (3) anxiety 0-10 Scale: Unable to quantify Pertinent Non-Medical Issues Psychosocial: , 4 adult children, sister is HCS. Spiritual: Worship background Legal: The patient is confused, has hypercapnia and profound weakness, and does not seem to be capacitated to make decisions at this time. She has previously designated her sister Yessenia as healthcare surrogate, and the patient' s 4 children are participating in discussions with Yessenia with respect to their own feelings and wishes.. Ethical issues impacting care: None . Important Contacts * Sister/HCS: Yessenia Prasad [phone] * Daughter: Vesta Hook, * Daughter: Gabby Rogers, * Daughter: Elva Hook, * Son: Wolf Fonseca, no phone available, daughters can get in contact with him . Prognosis The patient is terminal, likely with just hours or days to live. She is appropriate for hospice services. . Code Status: No Code Plan * DO NOT RESUSCITATE, per request of sister/HCS and the patient's daughters on * GOALS: The family wants to transition to comfort care, hospice services, and would like the patient transported to the [facility] center for end-of-life care. * DECISION-MAKING: The patient is confused, has hypercapnia and profound weakness, and does not seem to be capacitated to make decisions at this time. She has previously designated her sister Yessenia as healthcare surrogate, and the patient's 4 children are participating in discussions with Yessenia with respect to their own feelings and wishes.. * SYMPTOMS: The patient has had long-standing anxiety, and was taking clonazepam at home prior to this hospitalization. She has been unable to take the oral medicines here, and she has had adverse reactions to both Valium and lorazepam. She also has dyspnea, and is now on scheduled morphine in addition to the PRN doses. * Palliative Care will continue to follow the patient during this hospitalization. . Time Spent Total Floor Time (mins): 39 Face to Face Time (mins): 10 >50% Counseling/Coord of Care: Yes (d/w RN and with dry house tender) Attestation To help prompt me to consider important information that might be impacting today's encounter and assessment, information from prior notes written by myself or my colleagues may have been "brought forward" into today's note. My signature on this note, however, is an attestation that I personally performed the exam, history, and/or decision-making noted today, and, unless otherwise indicated, the interactions with patient, family, and staff as well as the review of records all occurred today. I also attest that the listed assessment and stated plan reflect my best clinical judgment today based on the combination of historical information, prior notes, and today's exam/ interactions. When time spent is documented, it refers only to time spent today by the signer, or if indicated, combined time spent today by collaborating physician/nurse practitioner. Pat Parks MD Aug 03, 2017 10:09
--- NOTE | 2017-08-28 23:19 | MD ---
cc: MIKE LEGER ADMISSION DATE: 07/29/2017 DISCHARGE DATE: 08/03/2017 1965 The patient is a 51-year-old female with past medical history of small cell lung cancer with metastatic liver disease, anxiety, atrial fibrillation, COPD, hypertension who presented to [facility] ED with respiratory distress and hypoxemia. She was given bronchodilator treatment and IV steroids. She denied any associated symptoms of chest pain, nausea, vomiting, abdominal pain, cough or any constitutional symptoms. The patient was also treated with BiPap. On August 03, she remained on a BiPap with increase in FIO2 requirements. Palliative care met with the family and she was made DNR and hospice service was consulted. The patient was seen by Dr. Kurtz from pulmonary service and a chest x-ray from August 02 showed basilar airspace disease with small effusions. She was also placed on Lopressor and Cardizem for blood pressure control. The patient also was on broad-spectrum antibiotics in the form of Zosyn, azithromycin. The patient being followed by Dr. Martinez, her oncologist, and recommended no further chemotherapy due to poor performance status. She was also on sliding scale insulin for glycemic control in addition to Protonix and Lovenox for GI and DVT prophylaxis respectively. The patient was made DNR and was discharged to hospice on August 03. MD ALEJANDRA Kerr/ /10:43 AM /11:06 PM
== END 2017-08-03 13:00 | disposition hospice, inpatient (51) | DRG 871 ==
LOC: NEPC 20:31 → NEDA 23:31 → HIMW 07-30 02:05
PROVIDERS: ADMIT Internal Medicine Critical Care Medicine; ATTEND Internal Medicine Critical Care Medicine
DX: A41.9 Sepsis, unspecified organism (principal); J18.9 Pneumonia, unspecified organism; J96.22 Acute and chronic respiratory failure with hypercapnia; C78.7 Secondary malignant neoplasm of liver and intrahepatic bile duct; C34.90 Malignant neoplasm of unspecified part of unspecified bronchus or lung; J44.0 Chronic obstructive pulmonary disease with (acute) lower respiratory infection; J44.1 Chronic obstructive pulmonary disease with (acute) exacerbation; I48.91 Unspecified atrial fibrillation; F41.9 Anxiety disorder, unspecified; I10 Essential (primary) hypertension; I25.10 Atherosclerotic heart disease of native coronary artery without angina pectoris; E78.5 Hyperlipidemia, unspecified; Z51.5 Encounter for palliative care; F17.210 Nicotine dependence, cigarettes, uncomplicated; Z66 Do not resuscitate
CPT/HCPCS: 36600; 71010; 71275; 80048; 80053; 82805; 82948; 83605; 83735; 83880; 84100; 84132; 84484; 85025; 85610; 85730; 86403; 87040; 87077; 87186; 87205; 87641; 93005; 94002; 94003; 94640; 94664; 96360; 96361; 96374; C9113; J0456; J0696; J1120; J1650; J2270; J2405; J2543; J2920; J3370; J3480; J7030; J7050; Q9967